=== PATIENT | male | born 1955 | race Caucasian/White ===

== ENCOUNTER 2017-07-21 11:20 | Inpatient (IN) | payer OTHER ==
[2017-07-21 11:50] VITALS: BMI 44.0
--- NOTE | 2017-07-21 13:15 | PDOC ---
*Physical Exam - Vital Signs Last Vital Signs Temp Pulse Resp BP Pulse Ox 98.6 F 76 16 140/80 97 07/21/17 11:46 07/21/17 11:46 07/21/17 11:46 07/21/17 11:46 07/21/17 11:46 ED Treatment Course - LABORATORY CBC & Chemistry Diagram: 07/22/17 07:00 07/22/17 07:00 Medical Decision Making - Medical Decision Making 07/21/17 13:14 Pt seen by the Advanced Practice Provider under my direct supervision Ancillary studies reviewed I agree with plan as outlined by the Advanced Practice Provider JORJE Darby *DC/Admit/Observation/Transfer Diagnosis at time of Disposition: Hematoma of toe of right foot, Cellulitis - Discharge Dispostion Condition at time of disposition: Stable - Referrals - Patient Instructions - Post Discharge Activity
--- NOTE | 2017-07-21 13:15 | PDOC ---
History of Present Illness - General Chief Complaint: Abscess Boil Stated Complaint: PCP SENT Time Seen by Provider: 07/21/17 13:06 History Source: Patient Exam Limitations: No Limitations - History of Present Illness Initial Comments: 07/21/17 13:20 Pt. is a 62 y/o M with PMH of IDDM, CAD with CABG in 2009, HLD, HTN, gout, who presents to the ED c/o a blister to his R 1st toe. He is concerned that it is an abscess. He spoke with his slitter service and setter Dr. Seals who recommended he come for evaluation and admission of his toe. Pt. states he had a large callus on his R first toe when a piece of it broke off. He then states the blister formed. Admits to pain in the toe. Pt is also concerned about his left foot as he recently had a piece of glass removed from the foot. Denies fevers, chills, n /v/d, leg pain, chest pain, sob. Past History - Travel Traveled outside of the country in the last 30 days: No Close contact w/someone who was outside of country & ill: No - Past Medical History Allergies/Adverse Reactions: Allergies Allergy/AdvReac Type Severity Reaction Status Date / Time bacitracin Allergy Verified 07/21/17 11:45 cimetidine [From Tagamet] Allergy Verified 07/21/17 11:45 Home Medications: Ambulatory Orders Allopurinol 600 mg PO DAILY 07/21/17 Clopidogrel Bisulfate [Plavix -] 75 mg PO DAILY 07/21/17 Dapagliflozin Propanediol [Farxiga] 5 mg PO DAILY 07/21/17 Duloxetine HCl [Cymbalta -] 60 mg PO DAILY 07/21/17 Glipizide 5 mg PO DAILY 07/21/17 Insulin Glargine,Hum.rec.anlog [Lantus Solostar] 30 unit SQ HS 07/21/17 Losartan Potassium 100 mg PO DAILY 07/21/17 Metoprolol Tartrate 25 mg PO DAILY 07/21/17 Saxagliptin HCl [Onglyza] 5 mg PO DAILY 07/21/17 Simvastatin 40 mg PO HS 07/21/17 Tamsulosin HCl [Flomax] 0.4 mg PO DAILY 07/21/17 Tolterodine Tartrate [Tolterodine Tartrate ER] 2 mg PO DAILY 07/21/17 COPD: No DVT: No - Immunization History Immunization Up to Date: Yes - Suicide/Smoking/Psychosocial Hx Smoking History: Never smoked Hx Alcohol Use: No Drug/Substance Use Hx: No Substance Use Type: None Review of Systems - Review of Systems Able to Perform ROS?: Yes Comments:: 07/21/17 13:16 CONSTITUTIONAL: Absent: fever, chills, diaphoresis, generalized weakness, malaise, loss of appetite HEENT: Absent: rhinorrhea, nasal congestion, throat pain, throat swelling, difficulty swallowing, mouth swelling, ear pain, eye pain, visual Changes CARDIOVASCULAR: Absent: chest pain, loss of consciousness, palpitations, irregular heart rate, peripheral edema RESPIRATORY: Absent: cough, shortness of breath, dyspnea with exertion, orthopnea, wheezing, stridor, hemoptysis GASTROINTESTINAL: Absent: abdominal pain, abdominal distension, nausea, vomiting, diarrhea, constipation, melena, hematochezia GENITOURINARY: Absent: dysuria, frequency, urgency, hesitancy, hematuria, flank pain, genital pain MUSCULOSKELETAL: Absent: myalgia, arthralgia, joint swelling SKIN: Present: Blister to R 1st toe. Cut to bottom L foot with glass. Absent: rash, itching, pallor HEMATOLOGIC/IMMUNOLOGIC: Absent: easy bleeding, easy bruising, lymphadenopathy, frequent infections ENDOCRINE: Absent: unexplained weight gain, unexplained weight loss, heat intolerance, cold intolerance NEUROLOGIC: Absent: headache, focal weakness or paresthesias, dizziness, unsteady gait, seizure, mental status changes, bladder or bowel incontinence PSYCHIATRIC: Absent: anxiety, depression, suicidal or homicidal ideation, hallucinations. 07/21/17 22:20 Is the patient limited Sinhala proficient: No *Physical Exam - Vital Signs Last Vital Signs Temp Pulse Resp BP Pulse Ox 98.6 F 76 16 140/80 97 07/21/17 11:46 07/21/17 11:46 07/21/17 11:46 07/21/17 11:46 07/21/17 11:46 - Physical Exam Comments: 07/21/17 13:17 GENERAL: Well developed, well nourished, obese. Awake and alert. No acute distress. HEENT: Normocephalic, atraumatic. PERRLA, EOMI. No conjunctival pallor. Sclera are non- icteric. Moist mucous membranes. Oropharynx is clear. NECK: Supple. Full ROM. No JVD. Carotid pulses 2+ and symmetric, without bruits. No thyromegaly. No lymphadenopathy. CARDIOVASCULAR: Regular rate and rhythm. No murmurs, rubs, or gallops. Distal pulses are 2+ and symmetric. PULMONARY: No evidence of respiratory distress. Lungs clear to auscultation bilaterally. No wheezing, rales or rhonchi. ABDOMINAL: Soft. Non-tender. Non-distended. No rebound or guarding. No organomegaly. Normoactive bowel sounds. MUSCULOSKELETAL Normal range of motion at all joints. No bony deformities or tenderness. No CVA tenderness. EXTREMITIES: No cyanosis. No clubbing. No edema. No calf tenderness. SKIN: R 1st toe with 2cm hematoma to the medial aspect near the nailbed. There is surrounding cellulitis to the toe. L foot with small cut to the dorsal surface. Warm and dry. Normal capillary refill. Chronic venous stasis changes to the b/l lower legs. No jaundice. NEUROLOGICAL: Alert, awake, appropriate. Cranial nerves 2-12 intact. No deficits to light touch and temperature in face, upper extremities and lower extremities. No motor deficits in the in face, upper extremities and lower extremities. Normoreflexic in the upper and lower extremities. Normal speech. Toes are down- going bilaterally. Gait is normal without ataxia. PSYCHIATRIC: Cooperative. Good eye contact. Appropriate mood and affect. ED Treatment Course - LABORATORY CBC & Chemistry Diagram: 07/21/17 13:35 07/21/17 13:35 Medical Decision Making - Medical Decision Making 07/21/17 13:28 Pt. is a 62 y/o M with PMH of IDDM, CAD with CABG in 2009, HLD, HTN, gout, who presents to the ED with a hematoma with surrounding cellulits to his R 1st toe. Given hx of diabetes and poor wound healing, concerned for infection. Will also obtain x-rays of both L and R foot given hx of glass in the left foot. Will cover with abx after blood cultures are drawn. Will contact podiatry (Dr. Seals) for evaluation. 1. CBC, CMP, PT/INR, Blood cultures 2. Clinda, Zosyn 3. X-ray L and R foot 4. Podiatry consult 07/21/17 14:32 Dr. Seals in the ED and evaluates the patient. Would like pt admitted for debridment tomorrow. Will admit the pt for further follow up/IV abx pending lab work. 07/21/17 15:21 No leukocytosis, x-rays with no evidence of osteomylitis, or foreign body. Will admit to [facility] at this time 07/21/17 16:31 Spoke with Radha Joy NP who accepts the pt. for admission to Med/surg *DC/Admit/Observation/Transfer Diagnosis at time of Disposition: Hematoma of toe of right foot Qualifiers: Encounter type: initial encounter Qualified Code(s): S90.121A - Contusion of right lesser toe(s) without damage to nail, initial encounter Cellulitis Qualifiers: Site of cellulitis: extremity Site of cellulitis of extremity: toe Laterality: right Qualified Code(s): L03.031 - Cellulitis of right toe - Discharge Dispostion Condition at time of disposition: Stable Admit: Yes - Referrals - Patient Instructions - Post Discharge Activity
[2017-07-21 14:01] LABS: EOS % 1.4 % (0-4.5); HEMATOCRIT 43.7 % (35.4-49); HEMOGLOBIN 14.6 GM/dL (11.7-16.9); LYMPH % 18.8 % (8-40); MCH 29.4 pg (25.7-33.7); MCHC 33.5 g/dl (32.0-35.9); MEAN CELL VOLUME 87.8 fl (80-96); MEAN PLT VOLUME 8.7 fl (7.5-11.1); MONO % 9.5 % (3.8-10.2); NEUT % 69.3 % (42.8-82.8); PLATELET COUNT 195 K/MM3 (134-434); RBC 4.98 M/mm3 (4.00-5.60); RDW 14.3 % (11.9-15.9); WHITE BLOOD COUNT 8.5 K/mm3 (4.0-10.0)
[2017-07-21 14:04] LABS: ALBUMIN 3.2 g/dl (3.4-5.0); ANION GAP 10 (8-16); BILIRUBIN,TOTAL 0.4 mg/dL (0.2-1.0); BLOOD UREA NITROGEN 24 mg/dL (7-18); CALCIUM 9.1 mg/dL (8.5-10.1); CHLORIDE 100 mmol/L (98-107); CO2 28 mmol/L (21-32); CREATININE 0.9 mg/dL (0.7-1.3); GLUCOSE,RANDOM 227 mg/dL (74-106); POTASSIUM 4.4 mmol/L (3.5-5.1); SGOT/AST 16 U/L (15-37); SGPT/ALT 23 U/L (12-78); SODIUM 138 mmol/L (136-145); TOT PROT 6.6 g/dl (6.4-8.2)
[2017-07-21 14:05] LABS: ALK PHOS 99 U/L (45-117)
[2017-07-21 14:28] LABS: INR 1.03 (0.82-1.09); PROTHROMBIN TIME (PATIENT) 11.6 SEC (9.98-11.88)
[2017-07-21] MEDS ORDERED: PIPERACILLIN/TAZOB 3.375 GM/50 ML PRE-DOCKED IVPB ONE (15:46)
[2017-07-21] MEDS ORDERED: CLINDAMYCIN 900 MG PREMIX IVPB 900 MG/50 ML BAG IVPB ONE ×2 (15:47→16:34)
[2017-07-21] MEDS ORDERED: PIPERACILLIN/TAZOB 3.375 GM 3.375 GM/50 ML BAG IVPB ONE ×2 (16:34→20:18)
--- NOTE | 2017-07-21 18:57 | HP ---
CHIEF COMPLAINT: R toe swelling/pain PCP: HISTORY OF PRESENT ILLNESS: This is a 62 year old male with HTN, HLD, NIDDM, and BPH. Presented to the ED with increased RIGHT great toe swelling, erythema and hematoma. Pt states last week he had a callus on the RIGHT toe, and the callus fell off. Overnight, he noted increased pain in the RIGHT toe and the next morning found a hematoma. He also noted redness and a piece of glass in his LEFT foot which his doctor removed. Denies fever, chills, sob, chest pain, nausea, vomiting, changes in bowel or urinary habits. ER course was notable for: (1) zosyn, clinda given (2) blood cx drawn Recent Travel: No PAST MEDICAL HISTORY: Hypertension Hyperlipidemia NIDDM BPH PAST SURGICAL HISTORY: Social History: Smoking: Alcohol: Drugs: Family History: Allergies bacitracin Allergy (Verified 07/21/17 11:45) cimetidine [From Tagamet] Allergy (Verified 07/21/17 11:45) HOME MEDICATIONS: REVIEW OF SYSTEMS CONSTITUTIONAL: Absent: fever, chills, diaphoresis, generalized weakness, malaise, loss of appetite, weight change HEENT: Absent: rhinorrhea, nasal congestion, throat pain, throat swelling, difficulty swallowing, mouth swelling, ear pain, eye pain, visual changes CARDIOVASCULAR: Absent: chest pain, syncope, palpitations, irregular heart rate, lightheadedness , peripheral edema RESPIRATORY: Absent: cough, shortness of breath, dyspnea with exertion, orthopnea, wheezing, stridor, hemoptysis GASTROINTESTINAL: Absent: abdominal pain, abdominal distension, nausea, vomiting, diarrhea, constipation, melena, hematochezia GENITOURINARY: Absent: dysuria, frequency, urgency, hesitancy, hematuria, flank pain, genital pain MUSCULOSKELETAL: Absent: myalgia, arthralgia, joint swelling, back pain, neck pain SKIN: R toe hematoma, erythema redness swelling Absent: rash, itching, pallor HEMATOLOGIC/IMMUNOLOGIC: Absent: easy bleeding, easy bruising, lymphadenopathy, frequent infections ENDOCRINE: Absent: unexplained weight gain, unexplained weight loss, heat intolerance, cold intolerance NEUROLOGIC: Absent: headache, focal weakness or paresthesias, dizziness, unsteady gait, seizure, mental status changes, bladder or bowel incontinence PSYCHIATRIC: Absent: anxiety, depression, suicidal or homicidal ideation, hallucinations. PHYSICAL EXAMINATION Vital Signs - 24 hr 07/21/17 07/21/17 11:46 17:24 Temperature 98.6 F Pulse Rate 76 Pulse Rate [ 79 Apical] Respiratory 16 18 Rate Blood Pressure 140/80 Blood Pressure 100/69 [Right Arm] O2 Sat by Pulse 97 98 Oximetry (%) PE Neuro: alert, awake, cn 2-12intact Pulm: CTAB CV: s1 s2 rrr no mrg Abd: s nt nd + bs ExT: R great toe swelling/foot, R toe with hematoma, redness, b/l LE chronic erythema Laboratory Results - last 24 hr 07/21/17 07/21/17 07/21/17 13:35 13:35 13:35 WBC 8.5 RBC 4.98 Hgb 14.6 Hct 43.7 MCV 87.8 MCH 29.4 MCHC 33.5 RDW 14.3 Plt Count 195 MPV 8.7 Neutrophils % 69.3 Lymphocytes % 18.8 Monocytes % 9.5 Eosinophils % 1.4 Basophils % 1.0 PT with INR 11.60 INR 1.03 Sodium 138 Potassium 4.4 Chloride 100 Carbon Dioxide 28 Anion Gap 10 BUN 24 H Creatinine 0.9 Creat Clearance w eGFR > 60 Random Glucose 227 H Calcium 9.1 Total Bilirubin 0.4 AST 16 ALT 23 Alkaline Phosphatase 99 Total Protein 6.6 Albumin 3.2 L ASSESSMENT/PLAN: 62 year-old male with a PMH significant for HTN, HLD, NIDDM, peripheral vascular disease, and BPH, admitted for cellulitis and hematoma of the right great toe. Cellulitis and hematoma of right great toe --xray unremarkable for fracture or signs of osteo --start unasyn --podiatry will see tomorrow for debridement Left foot foreign object --Xray negative for foreign object but podiatry read indicates fragment --podiatry will assess in OR tomorrow Hypertension --continue losartan, metoprolol Hyperlipidemia --continue statin NIDDM --Novolog sliding scale coverage --Levemir 30U qhs BPH --continue tamsulosin, tolterodine FEN Fluids: NS x 1L, then 75mL/hr Electrolytes: replete as indicated Nutrition: low sodium diabetic DVT prophylaxis: subq heparin, oob, ambulation Physical therapy Dispo: continues to require inpatient care. Full code. Visit type - Emergency Visit Emergency Visit: Yes ED Registration Date: 07/21/17 Care time: The patient presented to the Emergency Department on the above date and was hospitalized for further evaluation of their emergent condition. - New Patient This patient is new to me today: Yes Date on this admission: 07/21/17 - Critical Care Critical Care patient: No
[2017-07-21] MEDS ORDERED: SODIUM CHLORIDE 1,000 ML IV STA (20:14)
[2017-07-21] MEDS ORDERED: PIPERACIL/TAZOB 3.375 GM 3.375 GM/50 ML PREMIX IVPB SCH (20:15)
[2017-07-21] MEDS ORDERED: PIPERACILLIN/TAZOB 3.375 GM 3.375 GM in DEXTROSE 5%-WATER - 100 ML IVPB SCH (20:15)
[2017-07-21] MEDS ORDERED: TAMSULOSIN HCL 0.4 MG CAP.ER.24H (FP) ONE (20:18)
[2017-07-21] MEDS ORDERED: ACETAMINOPHEN 325 MG TABLET (FP) PO PRN (20:20)
[2017-07-21] MEDS: TAMSULOSIN HCL 0.4 MG CAP.ER.24H (FP) PO SCH (20:28)
[2017-07-21] MEDS: SODIUM CHLORIDE 1,000 ML IV SCH (20:30)
--- NOTE | 2017-07-21 20:50 | CONSULT ---
Consult - text type - Consultation Consultation Note: Patient was seen in a local Snowblower Mechanic office and referred to ER. Patient was seen in ER. Blister with cellulitis right foot and foreign body removal attempt left foot. Appears to be cellulitis right big toe proximal to blood blister. Patient is diabetic. vsgi, ns decreased, xrays reviewed, appears to have foreign body left foot, no om on left but have not seen official reading, +hematoma right foot, +cellulitis proximally, Cellulitis Foreign Body NPO tonight. Will add on to OR schedule tomorrow for I&D right and removal foreign body left. Vascular Clearance Dr. Medrano. Medical Clearance. Will follow.
[2017-07-21] MEDS ORDERED: ATORVASTATIN CA 40 MG TABLET (FP) ONE (23:27)
[2017-07-21] MEDS ORDERED: INSULIN DETEMIR 100 UNITS/ML MDV SQ ONE (23:29)
[2017-07-21] MEDS ORDERED: INSULIN (NOVOLOG) ASPART 100 UNITS/ML 10ML VIAL ONE (23:31)
[2017-07-21] MEDS: INSULIN DETEMIR 100 UNITS/ML MDV SQ SCH (23:38)
[2017-07-21] MEDS: ATORVASTATIN CA 20 MG TABLET (FP) PO SCH (23:39)
[2017-07-21] MEDS: INSULIN SLIDING SCALE (NOVOLOG) 1 VIAL SQ SCH (23:39)
[2017-07-22] MEDS: AMPICILLIN NA/SULBACTAM NA 3 GM in SODIUM CHLORIDE 100 ML IVPB SCH ×2 (04:39→10:59)
[2017-07-22] MEDS: HEPARIN NA (PORCINE) 5,000 UNITS/ML 1ML VIAL SQ SCH ×3 (06:14→22:32)
[2017-07-22] MEDS ORDERED: HEPARIN NA (PORCINE) 5,000 UNITS/ML 1ML VIAL ONE (06:43)
[2017-07-22] MEDS ORDERED: INSULIN (NOVOLOG) ASPART 100 UNITS/ML 10ML VIAL ONE (06:49)
[2017-07-22] MEDS: INSULIN SLIDING SCALE (NOVOLOG) 1 VIAL SQ SCH ×4 (06:58→22:32)
[2017-07-22 08:38] LABS: BASO % 0.9 % (0-2.0); EOS % 2.5 % (0-4.5); HEMATOCRIT 42.2 % (35.4-49); HEMOGLOBIN 13.7 GM/dL (11.7-16.9); LYMPH % 21.6 % (8-40); MCH 28.9 pg (25.7-33.7); MCHC 32.5 g/dl (32.0-35.9); MEAN CELL VOLUME 88.8 fl (80-96); MEAN PLT VOLUME 8.6 fl (7.5-11.1); MONO % 10.5 % (3.8-10.2); NEUT % 64.5 % (42.8-82.8); PLATELET COUNT 158 K/MM3 (134-434); RBC 4.75 M/mm3 (4.00-5.60); RDW 14.1 % (11.9-15.9); WHITE BLOOD COUNT 7.1 K/mm3 (4.0-10.0)
[2017-07-22 09:10] LABS: ALK PHOS 88 U/L (45-117); ANION GAP 9 (8-16); BILIRUBIN,TOTAL 0.6 mg/dL (0.2-1.0); BLOOD UREA NITROGEN 23 mg/dL (7-18); CHLORIDE 103 mmol/L (98-107); CO2 26 mmol/L (21-32); CREATININE 0.8 mg/dL (0.7-1.3); GLUCOSE,RANDOM 193 mg/dL (74-106); PHOSPHOROUS 3.6 mg/dL (2.5-4.9); POTASSIUM 4.3 mmol/L (3.5-5.1); SGOT/AST 16 U/L (15-37); SGPT/ALT 20 U/L (12-78); SODIUM 138 mmol/L (136-145); TOT PROT 5.9 g/dl (6.4-8.2)
[2017-07-22] MEDS ORDERED: DULoxetine HCL 60 MG CAPSULE.DR PO SCH (10:00)
[2017-07-22] MEDS: LOSARTAN POTASSIUM 100 MG TABLET PO SCH ×2 (10:59→11:30)
[2017-07-22] MEDS: TAMSULOSIN HCL 0.4 MG CAP.ER.24H (FP) PO SCH (10:59)
[2017-07-22] MEDS: CLOPIDOGREL BISULFATE 75 MG TABLET (FP) PO SCH ×2 (10:59→13:52)
[2017-07-22] MEDS: TOLTERODINE TARTRATE LA 2 MG CAP.SR.24H PO SCH ×2 (10:59→13:52)
[2017-07-22] MEDS: METOPROLOL TARTRATE 25 MG TABLET (FP) PO SCH ×2 (10:59→11:30)
[2017-07-22] MEDS: ALLOPURINOL 300 MG TABLET (FP) PO SCH ×2 (11:00→13:52)
--- NOTE | 2017-07-22 11:14 | PN ---
Progress Note (short form) - Note Progress Note: ID Consult dictated Cellulitis R foot Hematoma R great toe IDDM FB L foot Await c/s For I&D Empiric vancomycin/ zosyn
--- NOTE | 2017-07-22 12:26 | CONS ---
DATE OF CONSULTATION: DATE OF DICTATION: 07/22/2017 HISTORY OF PRESENT ILLNESS: The patient is a 62-year-old diabetic male who is evaluated for cellulitis of the right foot. The patient reports having a callus on his right great toe 1 week ago. The callus subsequently fell off. He developed pain and swelling of his right great toe and noted development of a hematoma. He presented to his loom inspector's office where he was advised hospital admission for debridement. He was also found to have a foreign body in the plantar aspect of the left foot. He denies any traumatic injury. No associated fever or chills. Patient states he has good sensation in his feet despite being an insulin-dependent diabetic. He denies prior history of serious soft tissue infection requiring hospitalization. PAST MEDICAL HISTORY: Positive for insulin-dependent diabetes mellitus, coronary artery disease, hypertension, gouty arthritis, hyperlipidemia, BPH. PAST SURGICAL HISTORY: Status post coronary artery bypass graft, 2009; history of basal cell carcinoma of the right upper extremity. ALLERGIES: BACITRACIN and TAGAMET. The patient develops hives with BACITRACIN. MEDICATIONS: Include allopurinol, Plavix, Farxiga, Cymbalta, glipizide, insulin, losartan, metoprolol, simvastatin, Flomax. SOCIAL HISTORY: Lives at home. Nonsmoker. Nondrinker. SYSTEMS REVIEW:Neurologic: No loss of consciousness, seizure activity, focal weakness. Cardiac: Negative chest pain or palpitations. Respiratory: Negative cough or sputum production. Gastrointestinal: Negative vomiting or diarrhea. Genitourinary: Negative for urinary tract infection. LABORATORY DATA: White blood cell count 7.1, hematocrit 42.2, platelet count 158. BUN 23, creatinine 0.8. Blood cultures pending. PHYSICAL EXAMINATION: General: He is awake and alert, in no acute distress, not acutely toxic appearing. He is obese. Vital Signs: Temperature 98.6, blood pressure 150/82, pulse 75, regular, respirations 15 per minute. HEENT: Sclerae are anicteric. Cardiac: Heart sounds S1, S2. Lungs: Clear. Abdomen: Obese, soft, nontender.Extremities: Positive for lower extremity edema. There is chronic stasis dermatitis present, left lower extremity. On examination of the right foot, there is swelling of the right great toe with a 2 x 4-cm hematoma involving the dorsal aspect of the toe extending to the medial and plantar surfaces. There is surrounding erythema. It is tender to touch. No surrounding crepitus. The hematoma itself is fluctuant. No lymphangitic streaking. On examination of the left foot, there is induration and tenderness present on the mid plantar surface. No wound is noted or erythema/ drainage. IMPRESSION: 1. Cellulitis of the right foot. 2. Hematoma, right great toe. 3. Insulin-dependent diabetes mellitus. 4. Foreign body in the soft tissues of the left foot, plantar surface. RECOMMENDATIONS: Await culture results. Patient is for incision and drainage today. Empiric antibiotic coverage in this insulin-dependent diabetic with vancomycin and Zosyn. Will follow. Thank you for the kind referral. MONSE WILSON M.D. [id number]
[2017-07-22] MEDS: VANCOMYCIN 1,000 MG in DEXTROSE 5%-WATER - 250 ML IVPB SCH ×2 (12:30→23:30)
--- NOTE | 2017-07-22 14:19 | PN ---
Progress Note (short form) - Note Progress Note: Patient was seen in [facility]. Patient had no new complaints and was asymptomatic at this time on plantar left foot. Right foot hematoma still intact. nvsgi, +hematoma right hallux, +localized cellulitis, -drainage, -mal odor, - tender Hematoma right hallux Foreign body left plantar foot? Xrays reviewed. I&D bedside hematoma right big toe. Culture of fluid sent to pathology. Betadine dressing applied. Patient to be admitted for IVABX and local wound care. Post op shoe to right side. Cancelled from OR schedule and done bedside. Will follow.
--- NOTE | 2017-07-22 15:12 | PN ---
Physical Exam: SUBJECTIVE: Patient seen and examined OBJECTIVE: Vital Signs Period Temp Pulse Resp BP Sys/Martinez Pulse Ox Last 24 Hr 97.9 F-98.1 F 63-81 15-18 100-150/65-88 93-98 Neuro: AA&Ox3. Pulm: Lungs CTAB CV: RRR. S1 S2. No m/r/g. Abd: SNTND. + bs ExT: R toe surgical site with minimal drainage, redness, b/l LE chronic venous stasis changes Laboratory Results - last 24 hr 07/22/17 07/22/17 07/22/17 06:42 07:00 07:00 WBC 7.1 RBC 4.75 Hgb 13.7 Hct 42.2 MCV 88.8 MCH 28.9 MCHC 32.5 RDW 14.1 Plt Count 158 MPV 8.6 Neutrophils % 64.5 Lymphocytes % 21.6 Monocytes % 10.5 H Eosinophils % 2.5 Basophils % 0.9 Sodium 138 Potassium 4.3 Chloride 103 Carbon Dioxide 26 Anion Gap 9 BUN 23 H Creatinine 0.8 Creat Clearance w eGFR > 60 POC Glucometer [phone] Random Glucose 193 H Calcium 8.0 L Phosphorus 3.6 Magnesium 2.0 Total Bilirubin 0.6 D AST 16 ALT 20 Alkaline Phosphatase 88 Total Protein 5.9 L Albumin 3.0 L Active Medications Generic Name Dose Route Start Last Admin Trade Name Freq PRN Reason Stop Dose Admin Acetaminophen 650 mg 07/21/17 20:20 Tylenol - PO Q6H PRN MODERATE PAIN Allopurinol 600 mg 07/22/17 10:00 07/22/17 13:52 Zyloprim - PO 600 mg DAILY SYLVIA Administration Atorvastatin Calcium 20 mg 07/21/17 22:00 07/21/17 23:39 Lipitor - PO 20 mg HS SYLVIA Administration Clopidogrel Bisulfate 75 mg 07/22/17 10:00 07/22/17 13:52 Plavix - PO 75 mg DAILY SYLVIA Administration Duloxetine HCl 60 mg 07/22/17 10:00 07/22/17 10:59 Cymbalta - PO Not Given DAILY SYLVIA Heparin Sodium (Porcine) 5,000 unit 07/22/17 06:00 07/22/17 13:52 Heparin - SQ 5,000 unit TID SYLVIA Administration Sodium Chloride 1,000 mls @ 75 mls/hr 07/21/17 20:30 07/21/17 20:30 Normal Saline - IV 75 mls/hr ASDIR SYLVIA Administration Vancomycin HCl 1,000 mg/ 250 mls @ 200 mls/hr 07/22/17 12:00 07/22/17 12:30 Dextrose IVPB 0 mls BID@0000,1200 SYLVIA Administration Piperacillin Sod/Tazobactam 100 mls @ 200 mls/hr 07/22/17 18:00 Sod 4.5 gm/ Dextrose IVPB Q8H-IV SYLVIA Protocol Insulin Aspart 1 vial 07/21/17 22:00 07/22/17 12:30 Novolog Vial Sliding Scale - SQ 1 vial ACHS SYLVIA Administration Protocol Insulin Detemir 30 units 07/21/17 22:00 07/21/17 23:38 Levemir Vial SQ 30 units HS SYLVIA Administration Losartan Potassium 100 mg 07/22/17 10:00 07/22/17 11:30 Losartan Potassium PO 100 mg DAILY SYLVIA Administration Metoprolol Tartrate 25 mg 07/22/17 10:00 07/22/17 11:30 Lopressor - PO 25 mg DAILY SYLVIA Administration Tamsulosin HCl 0.4 mg 07/21/17 20:15 07/22/17 10:59 Flomax - PO Not Given DAILY@0830 [facility] Tolterodine Tartrate 2 mg 07/22/17 10:00 07/22/17 13:52 Detrol La - PO 2 mg DAILY SYLVIA Administration ASSESSMENT/PLAN: A: 62 year-old male with a PMH significant for HTN, HLD, NIDDM, peripheral vascular disease, and BPH, admitted for cellulitis and hematoma of the right great toe. P: Cellulitis and hematoma of right great toe - xray unremarkable for fracture or osteo - Vanco 1 g q12h - Zosyn 4.5 q8h - OR cancelled due to bedside I&D - ID following Left foot foreign object - Xray negative for foreign object Hypertension - losartan - metoprolol Hyperlipidemia - Lipitor NIDDM - FS qACHS - Novolog sliding scale coverage - Levemir 30U qhs BPH - tamsulosin - tolterodine F/E/N - NS@75mL/hr - replete prn - low Na diabetic PPX - sqh - oob - PT Dispo: continues to require inpatient care. Visit type - Emergency Visit Emergency Visit: Yes ED Registration Date: 07/21/17 Care time: The patient presented to the Emergency Department on the above date and was hospitalized for further evaluation of their emergent condition. - New Patient This patient is new to me today: Yes Date on this admission: 07/22/17 - Critical Care Critical Care patient: No
--- NOTE | 2017-07-22 16:10 | PN ---
Progress Note (short form) - Note Progress Note: VA[facility] Surgery Pt seen and examined in ER this am. Pt with right great toe blister, and foreign body in left foot. Podiatry to take pt for surgery Pt has palpable DP pulses. Cleared from a vascular standpoint for podiatry surgery Da Medrano dO
[2017-07-22] MEDS: PIPERACILLIN/TAZOB 4.5 GM 4.5 GM in DEXTROSE 5%-WATER - 100 ML IVPB SCH (17:23)
[2017-07-22] MEDS ORDERED: PT OWN MED DRAWER 7, Y5N ONE (18:20)
[2017-07-22] MEDS: SODIUM CHLORIDE 1,000 ML IV SCH (22:30)
[2017-07-22] MEDS: ATORVASTATIN CA 20 MG TABLET (FP) PO SCH (22:32)
[2017-07-22] MEDS: INSULIN DETEMIR 100 UNITS/ML MDV SQ SCH (22:32)
[2017-07-23] MEDS: SODIUM CHLORIDE 1,000 ML IV SCH (02:45)
[2017-07-23] MEDS: PIPERACILLIN/TAZOB 4.5 GM 4.5 GM in DEXTROSE 5%-WATER - 100 ML IVPB SCH ×2 (02:46→11:01)
[2017-07-23] MEDS: INSULIN SLIDING SCALE (NOVOLOG) 1 VIAL SQ SCH ×4 (06:56→21:42)
[2017-07-23] MEDS: HEPARIN NA (PORCINE) 5,000 UNITS/ML 1ML VIAL SQ SCH ×3 (06:57→21:42)
[2017-07-23 07:32] LABS: EOS % 3.3 % (0-4.5); HEMATOCRIT 42.4 % (35.4-49); HEMOGLOBIN 13.7 GM/dL (11.7-16.9); LYMPH % 25.6 % (8-40); MCH 28.9 pg (25.7-33.7); MCHC 32.4 g/dl (32.0-35.9); MEAN CELL VOLUME 89.1 fl (80-96); MEAN PLT VOLUME 8.5 fl (7.5-11.1); MONO % 8.9 % (3.8-10.2); NEUT % 61.2 % (42.8-82.8); PLATELET COUNT 142 K/MM3 (134-434); RBC 4.76 M/mm3 (4.00-5.60); RDW 14.3 % (11.9-15.9); WHITE BLOOD COUNT 6.4 K/mm3 (4.0-10.0)
[2017-07-23 07:52] LABS: ANION GAP 8 (8-16); BLOOD UREA NITROGEN 14 mg/dL (7-18); CALCIUM 7.5 mg/dL (8.5-10.1); CHLORIDE 106 mmol/L (98-107); CO2 26 mmol/L (21-32); CREATININE 0.7 mg/dL (0.7-1.3); GLUCOSE,RANDOM 139 mg/dL (74-106); POTASSIUM 4.1 mmol/L (3.5-5.1); SODIUM 140 mmol/L (136-145)
--- NOTE | 2017-07-23 08:14 | CONSULT ---
Consult - text type - Consultation Consultation Note: Patient seen in bed. Alert and oriented. VSS. Left foot and right foot no pain. greatly improved erythema / cellulitis right foot. wbc=6.4, +granulating wound right big toe. left foot stable, Resolving cellulitis DC Betadine dressing changes daily. Change to silvadene dressing change right great toe daily. Nithin follow till dc. Anticipate DC by Tuesday if continues to progress positively.
[2017-07-23] MEDS: ALLOPURINOL 300 MG TABLET (FP) PO SCH (09:23)
[2017-07-23] MEDS: TAMSULOSIN HCL 0.4 MG CAP.ER.24H (FP) PO SCH (09:23)
[2017-07-23] MEDS: DULoxetine HCL 30 MG CAPSULE.DR (FP) PO SCH (09:23)
[2017-07-23] MEDS: LOSARTAN POTASSIUM 50 MG TABLET (FP) PO SCH (09:24)
[2017-07-23] MEDS: CLOPIDOGREL BISULFATE 75 MG TABLET (FP) PO SCH (09:24)
[2017-07-23] MEDS: TOLTERODINE TARTRATE LA 2 MG CAP.SR.24H PO SCH (09:24)
[2017-07-23] MEDS: METOPROLOL TARTRATE 25 MG TABLET (FP) PO SCH (09:24)
--- NOTE | 2017-07-23 11:03 | PN ---
Progress Note, Physician Chief Complaint: S/P I&D R great toe hematoma No c/o toe pain No fever/ chills + loose BM x1 this morning Afebrile WBC WNL BC (-) Wound c/s pending - Current Medication List Current Medications: Active Medications Acetaminophen (Tylenol -) 650 mg PO Q6H PRN PRN Reason: MODERATE PAIN Allopurinol (Zyloprim -) 600 mg PO DAILY COUNTS INCLUDE 234 BEDS AT THE [facility] Last Admin: 07/23/17 09:23 Dose: 600 mg Atorvastatin Calcium (Lipitor -) 20 mg PO HS COUNTS INCLUDE 234 BEDS AT THE [facility] Last Admin: 07/22/17 22:32 Dose: 20 mg Clopidogrel Bisulfate (Plavix -) 75 mg PO DAILY COUNTS INCLUDE 234 BEDS AT THE [facility] Last Admin: 07/23/17 09:24 Dose: 75 mg Duloxetine HCl (Cymbalta -) 60 mg PO DAILY COUNTS INCLUDE 234 BEDS AT THE [facility] Last Admin: 07/23/17 09:23 Dose: 60 mg Heparin Sodium (Porcine) (Heparin -) 5,000 unit SQ TID COUNTS INCLUDE 234 BEDS AT THE [facility] Last Admin: 07/23/17 06:57 Dose: 5,000 unit Sodium Chloride (Normal Saline -) 1,000 mls @ 75 mls/hr IV ASDIR COUNTS INCLUDE 234 BEDS AT THE [facility] Last Admin: 07/23/17 02:45 Dose: 75 mls/hr Vancomycin HCl 1,000 mg/ (Dextrose) 250 mls @ 200 mls/hr IVPB BID@0000,1200 COUNTS INCLUDE 234 BEDS AT THE [facility] Last Admin: 07/22/17 23:30 Dose: 200 mls/hr Piperacillin Sod/Tazobactam (Sod 4.5 gm/ Dextrose) 100 mls @ 200 mls/hr IVPB Q8H-IV COUNTS INCLUDE 234 BEDS AT THE [facility] PRN Reason: Protocol Last Admin: 07/23/17 02:46 Dose: 200 mls/hr Insulin Aspart (Novolog Vial Sliding Scale -) 1 vial SQ ACHS COUNTS INCLUDE 234 BEDS AT THE [facility] PRN Reason: Protocol Last Admin: 07/23/17 06:56 Dose: Not Given Insulin Detemir (Levemir Vial) 30 units SQ HS COUNTS INCLUDE 234 BEDS AT THE [facility] Last Admin: 07/22/17 22:32 Dose: 30 units Losartan Potassium (Cozaar -) 100 mg PO DAILY COUNTS INCLUDE 234 BEDS AT THE [facility] Last Admin: 07/23/17 09:24 Dose: 100 mg Metoprolol Tartrate (Lopressor -) 25 mg PO DAILY COUNTS INCLUDE 234 BEDS AT THE [facility] Last Admin: 07/23/17 09:24 Dose: 25 mg Tamsulosin HCl (Flomax -) 0.4 mg PO DAILY@0830 COUNTS INCLUDE 234 BEDS AT THE [facility] Last Admin: 07/23/17 09:23 Dose: 0.4 mg Tolterodine Tartrate (Detrol La -) 2 mg PO DAILY COUNTS INCLUDE 234 BEDS AT THE [facility] Last Admin: 07/23/17 09:24 Dose: 2 mg - Objective Vital Signs: Vital Signs Temperature 98 F 07/23/17 07:00 Pulse Rate 71 07/23/17 07:00 Respiratory Rate 18 07/23/17 07:00 Blood Pressure 135/74 07/23/17 07:00 O2 Sat by Pulse Oximetry (%) 96 07/22/17 09:00 Constitutional: Yes: No Distress, Obese Eyes: Yes: Conjunctiva Clear Cardiovascular: Yes: Regular Rate and Rhythm, S1, S2 Respiratory: Yes: CTA Bilaterally Gastrointestinal: Yes: Normal Bowel Sounds, Soft. No: Tenderness Extremities: Yes: Other (R great toe with denuded skin. Decreased swelling and erythema) Labs: CBC, BMP 07/23/17 07:15 07/23/17 07:15 INR, PTT INR 1.03 (0.82-1.09) 07/21/17 13:35 Assessment/Plan Cellulitis R great toe S/P I&D R great toe hematoma Diabetes mellitus Await c/s Continue vancomycin. D/C zosyn Probiotic
[2017-07-23] MEDS: VANCOMYCIN 1,000 MG in DEXTROSE 5%-WATER - 250 ML IVPB SCH ×2 (11:55→23:50)
[2017-07-23] MEDS ORDERED: INSULIN (NOVOLOG) ASPART 100 UNITS/ML 10ML VIAL ONE (12:07)
[2017-07-23 13:33] LABS: ANION GAP 9 (8-16); BLOOD UREA NITROGEN 13 mg/dL (7-18); CALCIUM 8.2 mg/dL (8.5-10.1); CHLORIDE 103 mmol/L (98-107); CO2 24 mmol/L (21-32); GLUCOSE,RANDOM 274 mg/dL (74-106); MAGNESIUM 1.8 mg/dL (1.8-2.4); POTASSIUM 4.6 mmol/L (3.5-5.1); SODIUM 136 mmol/L (136-145)
[2017-07-23 13:38] LABS: ALK PHOS 91 U/L (45-117); BILIRUBIN,TOTAL 0.5 mg/dL (0.2-1.0); SGOT/AST 18 U/L (15-37); SGPT/ALT 22 U/L (12-78); TOT PROT 6.3 g/dl (6.4-8.2)
[2017-07-23] MEDS: LACTOBACILLUS ACIDOPHILUS 1 EACH TAB (FP) PO SCH (14:23)
[2017-07-23] MEDS: SILVER SULFADIAZINE 1% TOP CREAM 50 GM JAR TP SCH (15:00)
--- NOTE | 2017-07-23 17:15 | PN ---
Physical Exam: SUBJECTIVE: Patient seen and examined at the bedside. Sitting up in the chair, in no acute distress. OBJECTIVE: Vital Signs Period Temp Pulse Resp BP Sys/Martinez Pulse Ox Last 24 Hr 98 F-98.7 F 60-80 18-18 130-143/59-77 GENERAL: The patient is awake, alert, and fully oriented, in no acute distress. HEAD: Normal with no signs of trauma. EYES: PERRL, extraocular movements intact, sclera anicteric, conjunctiva clear. No ptosis. ENT: Ears normal, nares patent, oropharynx clear without exudates, moist mucous membranes. NECK: Trachea midline, full range of motion, supple. LUNGS: Diminished breath sounds bilaterally, tolerating room air ABDOMEN: Soft, nontender, nondistended, normoactive bowel sounds, no guarding, no rebound, no hepatosplenomegaly, no masses. EXTREMITIES:R toe surgical site with minimal drainage, redness, b/l LE chronic venous stasis changes SKIN: bilateral lower ext edema, d/c ivf 07/22/17 07/22/17 07/23/17 17:23 21:17 05:58 WBC RBC Hgb Hct MCV MCH MCHC RDW Plt Count MPV Neutrophils % Lymphocytes % Monocytes % Eosinophils % Basophils % Sodium Potassium Chloride Carbon Dioxide Anion Gap BUN Creatinine Creat Clearance w eGFR POC Glucometer 226 224 135 Random Glucose Calcium Magnesium Total Bilirubin AST ALT Alkaline Phosphatase Total Protein Albumin 07/23/17 07/23/17 07/23/17 07:15 07:15 11:59 WBC 6.4 RBC 4.76 Hgb 13.7 Hct 42.4 MCV 89.1 MCH 28.9 MCHC 32.4 RDW 14.3 Plt Count 142 MPV 8.5 Neutrophils % 61.2 Lymphocytes % 25.6 Monocytes % 8.9 Eosinophils % 3.3 Basophils % 1.0 Sodium 140 Potassium 4.1 Chloride 106 Carbon Dioxide 26 Anion Gap 8 BUN 14 D Creatinine 0.7 Creat Clearance w eGFR POC Glucometer 214 Random Glucose 139 H D Calcium 7.5 L Magnesium Total Bilirubin AST ALT Alkaline Phosphatase Total Protein Albumin 07/23/17 12:40 WBC RBC Hgb Hct MCV MCH MCHC RDW Plt Count MPV Neutrophils % Lymphocytes % Monocytes % Eosinophils % Basophils % Sodium 136 Potassium 4.6 Chloride 103 Carbon Dioxide 24 Anion Gap 9 BUN 13 Creatinine 1.0 D Creat Clearance w eGFR > 60 POC Glucometer Random Glucose 274 H D Calcium 8.2 L Magnesium 1.8 Total Bilirubin 0.5 AST 18 ALT 22 Alkaline Phosphatase 91 Total Protein 6.3 L Albumin 3.0 L Active Medications Generic Name Dose Route Start Last Admin Trade Name Eliotq PRN Reason Stop Dose Admin Acetaminophen 650 mg 07/21/17 20:20 Tylenol - PO Q6H PRN MODERATE PAIN Allopurinol 600 mg 07/22/17 10:00 07/23/17 09:23 Zyloprim - PO 600 mg DAILY SYLVIA Administration Atorvastatin Calcium 20 mg 07/21/17 22:00 07/22/17 22:32 Lipitor - PO 20 mg HS SYLVIA Administration Clopidogrel Bisulfate 75 mg 07/22/17 10:00 07/23/17 09:24 Plavix - PO 75 mg DAILY SYLVIA Administration Duloxetine HCl 60 mg 07/23/17 10:00 07/23/17 09:23 Cymbalta - PO 60 mg DAILY SYLVIA Administration Heparin Sodium (Porcine) 5,000 unit 07/22/17 06:00 07/23/17 14:23 Heparin - SQ 5,000 unit TID SYLVIA Administration Sodium Chloride 1,000 mls @ 75 mls/hr 07/21/17 20:30 07/23/17 02:45 Normal Saline - IV 75 mls/hr ASDIR SYLVIA Administration Vancomycin HCl 1,000 mg/ 250 mls @ 200 mls/hr 07/22/17 12:00 07/23/17 11:55 Dextrose IVPB 200 mls/hr BID@0000,1200 SY[facility]IA Administration Insulin Aspart 1 vial 07/21/17 22:00 07/23/17 12:37 Novolog Vial Sliding Scale - SQ 4 units ACHS SY[facility]IA Administration Protocol Insulin Detemir 30 units 07/21/17 22:00 07/22/17 22:32 Levemir Vial SQ 30 units HS SY[facility]IA Administration Lactobacillus Acidophilus 1 tab 07/23/17 11:15 07/23/17 14:23 Bacid - PO 1 tab DAILY SY[facility]IA Administration Losartan Potassium 100 mg 07/23/17 10:00 07/23/17 09:24 Cozaar - PO 100 mg DAILY [facility] Administration Metoprolol Tartrate 25 mg 07/22/17 10:00 07/23/17 09:24 Lopressor - PO 25 mg DAILY SY[facility]IA Administration Silver Sulfadiazine 1 applic 07/23/17 14:00 Silvadene - TP DAILY SYLVIA Tamsulosin HCl 0.4 mg 07/21/17 20:15 07/23/17 09:23 Flomax - PO 0.4 mg DAILY@0830 SY[facility]IA Administration Tolterodine Tartrate 2 mg 07/22/17 10:00 07/23/17 09:24 Detrol La - PO 2 mg DAILY SY[facility]IA Administration ASSESSMENT/PLAN: Patient is a 62 year old male with a significant past medical history of hypertension, hyperlipidemia, diabetes mellitus, peripheral vascular disease, and BPH, admitted for cellulitis and hematoma of the right great toe. 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 ID: Cellulitis and hematoma of right great toe Foot xray unremarkable for fracture or osteomylitis On Vancomycin and Zosyn Bedside I&D of right great toe Awaiting wound cultures ID following Xray negative for foreign object Cardiology: Hypertension, controlled On Losartan, Metoprolol Hyperlipidemia, chronic On Lipitor Endocrine: Diabetes, chronic BGM, Novolog, Levemir F.E.N. Fluids: tolerating PO Electrolytes: monitor Nutrition: diabetic diet Prophylaxis: DVT: Heparin TID GI: Bacid Disposition: full code. Visit type - Emergency Visit Emergency Visit: Yes ED Registration Date: 07/21/17 Care time: The patient presented to the Emergency Department on the above date and was hospitalized for further evaluation of their emergent condition. - New Patient This patient is new to me today: Yes Date on this admission: 07/23/17 - Critical Care Critical Care patient: No - Discharge Referral Referred to [facility] Med P.C.: No
[2017-07-23] MEDS: INSULIN DETEMIR 100 UNITS/ML MDV SQ SCH (21:42)
[2017-07-23] MEDS: ATORVASTATIN CA 20 MG TABLET (FP) PO SCH (21:42)
[2017-07-24] MEDS: INSULIN SLIDING SCALE (NOVOLOG) 1 VIAL SQ SCH ×4 (06:03→21:45)
[2017-07-24] MEDS: HEPARIN NA (PORCINE) 5,000 UNITS/ML 1ML VIAL SQ SCH ×3 (06:05→21:44)
[2017-07-24 07:49] LABS: BASO % 0.6 % (0-2.0); EOS % 3.2 % (0-4.5); HEMATOCRIT 43.1 % (35.4-49); HEMOGLOBIN 13.9 GM/dL (11.7-16.9); LYMPH % 25.9 % (8-40); MCH 28.8 pg (25.7-33.7); MCHC 32.2 g/dl (32.0-35.9); MEAN CELL VOLUME 89.3 fl (80-96); MEAN PLT VOLUME 8.3 fl (7.5-11.1); MONO % 9.5 % (3.8-10.2); NEUT % 60.8 % (42.8-82.8); PLATELET COUNT 138 K/MM3 (134-434); RBC 4.83 M/mm3 (4.00-5.60); WHITE BLOOD COUNT 6.9 K/mm3 (4.0-10.0)
[2017-07-24 07:59] LABS: ALBUMIN 2.8 g/dl (3.4-5.0); ANION GAP 7 (8-16); BLOOD UREA NITROGEN 11 mg/dL (7-18); CALCIUM 8.2 mg/dL (8.5-10.1); CHLORIDE 104 mmol/L (98-107); CO2 28 mmol/L (21-32); CREATININE 0.6 mg/dL (0.7-1.3); GLUCOSE,RANDOM 147 mg/dL (74-106); SGOT/AST 14 U/L (15-37); SGPT/ALT 20 U/L (12-78); SODIUM 139 mmol/L (136-145)
[2017-07-24 08:01] LABS: ALK PHOS 91 U/L (45-117); BILIRUBIN,TOTAL 0.4 mg/dL (0.2-1.0)
[2017-07-24] MEDS ORDERED: PT OWN MED DRAWER 7, Y5N ONE (09:16)
[2017-07-24] MEDS: DULoxetine HCL 30 MG CAPSULE.DR (FP) PO SCH (09:19)
[2017-07-24] MEDS: TOLTERODINE TARTRATE LA 2 MG CAP.SR.24H PO SCH (09:19)
[2017-07-24] MEDS: ALLOPURINOL 300 MG TABLET (FP) PO SCH (09:19)
[2017-07-24] MEDS: LACTOBACILLUS ACIDOPHILUS 1 EACH TAB (FP) PO SCH (09:19)
[2017-07-24] MEDS: CLOPIDOGREL BISULFATE 75 MG TABLET (FP) PO SCH (09:19)
[2017-07-24] MEDS: LOSARTAN POTASSIUM 50 MG TABLET (FP) PO SCH (09:19)
[2017-07-24] MEDS: TAMSULOSIN HCL 0.4 MG CAP.ER.24H (FP) PO SCH (09:19)
[2017-07-24] MEDS: METOPROLOL TARTRATE 25 MG TABLET (FP) PO SCH (09:19)
--- NOTE | 2017-07-24 10:24 | PN ---
Physical Exam: SUBJECTIVE: Patient seen and examined at the bedside. Denies pain, states he is comfortable and offers no complaints. OBJECTIVE: Vital Signs Period Temp Pulse Resp BP Sys/Martinez Pulse Ox Last 24 Hr 97 F-98.4 F 60-68 18-18 132-158/67-89 97 GENERAL: The patient is awake, alert, and fully oriented, in no acute distress. HEAD: Normal with no signs of trauma. EYES: PERRL, extraocular movements intact, sclera anicteric, conjunctiva clear. No ptosis. ENT: Ears normal, nares patent, oropharynx clear without exudates, moist mucous membranes. NECK: Trachea midline, full range of motion, supple. LUNGS: Diminished breath sounds bilaterally, tolerating room air ABDOMEN: Soft, nontender, nondistended, normoactive bowel sounds, no guarding, no rebound, no hepatosplenomegaly, no masses. EXTREMITIES:R toe surgical site with minimal drainage, redness, b/l LE chronic venous stasis changes SKIN: bilateral lower ext edema, d/c ivf Laboratory Results - last 24 hr 07/23/17 07/23/17 07/23/17 11:59 12:40 17:30 WBC RBC Hgb Hct MCV MCH MCHC RDW Plt Count MPV Neutrophils % Lymphocytes % Monocytes % Eosinophils % Basophils % Sodium 136 Potassium 4.6 Chloride 103 Carbon Dioxide 24 Anion Gap 9 BUN 13 Creatinine 1.0 D Creat Clearance w eGFR > 60 POC Glucometer 214 178 Random Glucose 274 H D Calcium 8.2 L Magnesium 1.8 Total Bilirubin 0.5 AST 18 ALT 22 Alkaline Phosphatase 91 Total Protein 6.3 L Albumin 3.0 L 07/23/17 07/24/17 07/24/17 21:38 05:40 07:15 WBC 6.9 RBC 4.83 Hgb 13.9 Hct 43.1 MCV 89.3 MCH 28.8 MCHC 32.2 RDW 14.0 Plt Count 138 MPV 8.3 Neutrophils % 60.8 Lymphocytes % 25.9 Monocytes % 9.5 Eosinophils % 3.2 Basophils % 0.6 Sodium Potassium Chloride Carbon Dioxide Anion Gap BUN Creatinine Creat Clearance w eGFR POC Glucometer 186 142 Random Glucose Calcium Magnesium Total Bilirubin AST ALT Alkaline Phosphatase Total Protein Albumin 07/24/17 07:15 WBC RBC Hgb Hct MCV MCH MCHC RDW Plt Count MPV Neutrophils % Lymphocytes % Monocytes % Eosinophils % Basophils % Sodium 139 Potassium 4.0 Chloride 104 Carbon Dioxide 28 Anion Gap 7 L BUN 11 Creatinine 0.6 L D Creat Clearance w eGFR > 60 POC Glucometer Random Glucose 147 H D Calcium 8.2 L Magnesium 2.0 Total Bilirubin 0.4 AST 14 L D ALT 20 Alkaline Phosphatase 91 Total Protein 6.0 L Albumin 2.8 L Active Medications Generic Name Dose Route Start Last Admin Trade Name Freq PRN Reason Stop Dose Admin Acetaminophen 650 mg 07/21/17 20:20 Tylenol - PO Q6H PRN MODERATE PAIN Allopurinol 600 mg 07/22/17 10:00 07/24/17 09:19 Zyloprim - PO 600 mg DAILY SYLVIA Administration Atorvastatin Calcium 20 mg 07/21/17 22:00 07/23/17 21:42 Lipitor - PO 20 mg HS SYLVIA Administration Clopidogrel Bisulfate 75 mg 07/22/17 10:00 07/24/17 09:19 Plavix - PO 75 mg DAILY SYLVIA Administration Duloxetine HCl 60 mg 07/23/17 10:00 07/24/17 09:19 Cymbalta - PO 60 mg DAILY SYLVIA Administration Heparin Sodium (Porcine) 5,000 unit 07/22/17 06:00 07/24/17 06:05 Heparin - SQ 5,000 unit TID SYLVIA Administration Vancomycin HCl 1,000 mg/ 250 mls @ 200 mls/hr 07/22/17 12:00 07/23/17 23:50 Dextrose IVPB 200 mls/hr BID@0000,1200 SYLVIA Administration Insulin Aspart 1 vial 07/21/17 22:00 07/24/17 06:03 Novolog Vial Sliding Scale - SQ Not Given ACHS [facility] Protocol Insulin Detemir 30 units 07/21/17 22:00 07/23/17 21:42 Levemir Vial SQ 30 units HS [facility] Administration Lactobacillus Acidophilus 1 tab 07/23/17 11:15 07/24/17 09:19 Bacid - PO 1 tab DAILY SYLVIA Administration Losartan Potassium 100 mg 07/23/17 10:00 07/24/17 09:19 Cozaar - PO 100 mg DAILY SYLVIA Administration Metoprolol Tartrate 25 mg 07/22/17 10:00 07/24/17 09:19 Lopressor - PO 25 mg DAILY SYLVIA Administration Silver Sulfadiazine 1 applic 07/23/17 14:00 07/23/17 15:00 Silvadene - TP 1 applic DAILY SYLVIA Administration Tamsulosin HCl 0.4 mg 07/21/17 20:15 07/24/17 09:19 Flomax - PO 0.4 mg DAILY@0830 SY[facility]IA Administration Tolterodine Tartrate 2 mg 07/22/17 10:00 07/24/17 09:19 Detrol La - PO 2 mg DAILY SYLVIA Administration ASSESSMENT/PLAN: Patient is a 62 year old male with a significant past medical history of hypertension, hyperlipidemia, diabetes mellitus, peripheral vascular disease, and BPH. He was admitted on 07/21/2017 for cellulitis and hematoma of the right great toe. 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 ID: Cellulitis and hematoma of right great toe Foot xray unremarkable for fracture or osteomylitis On Vacomycin as per ID Patient is s/p bedside I&D of right great toe Awaiting wound cultures final report ID following Cardiology: Hypertension, controlled On Losartan, Metoprolol Hyperlipidemia, chronic On Lipitor Endocrine: Diabetes, chronic BGM, Novolog, Levemir F.E.N. Fluids: tolerating PO Electrolytes: monitor Nutrition: diabetic diet Prophylaxis: DVT: Heparin TID GI: Bacid Disposition: full code. Visit type - Emergency Visit Emergency Visit: Yes ED Registration Date: 07/21/17 Care time: The patient presented to the Emergency Department on the above date and was hospitalized for further evaluation of their emergent condition. - New Patient This patient is new to me today: No - Critical Care Critical Care patient: No - Discharge Referral Referred to [facility] Med P.C.: No
[2017-07-24] MEDS: VANCOMYCIN 1,000 MG in DEXTROSE 5%-WATER - 250 ML IVPB SCH ×2 (12:58→23:45)
[2017-07-24] MEDS: SILVER SULFADIAZINE 1% TOP CREAM 50 GM JAR TP SCH (15:09)
[2017-07-24] MEDS: ATORVASTATIN CA 20 MG TABLET (FP) PO SCH (21:45)
[2017-07-24] MEDS: INSULIN DETEMIR 100 UNITS/ML MDV SQ SCH (21:45)
[2017-07-25] MEDS: HEPARIN NA (PORCINE) 5,000 UNITS/ML 1ML VIAL SQ SCH ×2 (05:33→13:38)
[2017-07-25] MEDS: INSULIN SLIDING SCALE (NOVOLOG) 1 VIAL SQ SCH ×2 (06:25→12:23)
[2017-07-25 07:47] LABS: BASO % 0.6 % (0-2.0); EOS % 2.5 % (0-4.5); HEMATOCRIT 40.7 % (35.4-49); HEMOGLOBIN 13.5 GM/dL (11.7-16.9); MCH 29.1 pg (25.7-33.7); MCHC 33.1 g/dl (32.0-35.9); MEAN CELL VOLUME 87.9 fl (80-96); MEAN PLT VOLUME 8.2 fl (7.5-11.1); MONO % 8.7 % (3.8-10.2); NEUT % 68.2 % (42.8-82.8); PLATELET COUNT 144 K/MM3 (134-434); RBC 4.63 M/mm3 (4.00-5.60); WHITE BLOOD COUNT 7.3 K/mm3 (4.0-10.0)
[2017-07-25 08:08] LABS: ALBUMIN 2.7 g/dl (3.4-5.0); ANION GAP 6 (8-16); BLOOD UREA NITROGEN 10 mg/dL (7-18); CALCIUM 7.7 mg/dL (8.5-10.1); CHLORIDE 105 mmol/L (98-107); CO2 28 mmol/L (21-32); GLUCOSE,RANDOM 142 mg/dL (74-106); MAGNESIUM 1.7 mg/dL (1.8-2.4); SODIUM 139 mmol/L (136-145)
[2017-07-25 08:12] LABS: ALK PHOS 92 U/L (45-117); BILIRUBIN,TOTAL 0.7 mg/dL (0.2-1.0); CREATININE 0.6 mg/dL (0.7-1.3); SGOT/AST 22 U/L (15-37); SGPT/ALT 22 U/L (12-78); TOT PROT 5.6 g/dl (6.4-8.2)
[2017-07-25] MEDS ORDERED: MAGNESIUM SULF 50% (8.12 MEQ/2 ML-1 GM VIAL) IVPB ONE (09:05)
[2017-07-25] MEDS ORDERED: MAGNESIUM SULFATE IN WATER 2 GM/50 ML IVPB IVPB ONE (10:00)
[2017-07-25] MEDS ORDERED: PT OWN MED DRAWER 7, Y5N ONE (10:43)
[2017-07-25] MEDS: DULoxetine HCL 30 MG CAPSULE.DR (FP) PO SCH (10:58)
[2017-07-25] MEDS: ALLOPURINOL 300 MG TABLET (FP) PO SCH (10:58)
[2017-07-25] MEDS: LOSARTAN POTASSIUM 50 MG TABLET (FP) PO SCH (10:59)
[2017-07-25] MEDS: CLOPIDOGREL BISULFATE 75 MG TABLET (FP) PO SCH (10:59)
[2017-07-25] MEDS: TAMSULOSIN HCL 0.4 MG CAP.ER.24H (FP) PO SCH (10:59)
[2017-07-25] MEDS: TOLTERODINE TARTRATE LA 2 MG CAP.SR.24H PO SCH (10:59)
[2017-07-25] MEDS: METOPROLOL TARTRATE 25 MG TABLET (FP) PO SCH (11:00)
[2017-07-25] MEDS: SILVER SULFADIAZINE 1% TOP CREAM 50 GM JAR TP SCH (11:00)
[2017-07-25] MEDS: LACTOBACILLUS ACIDOPHILUS 1 EACH TAB (FP) PO SCH (11:00)
--- NOTE | 2017-07-25 11:52 | PN ---
Progress Note (short form) - Note Progress Note: Patient was seen in bed. Patient had no new complaints and was asymptomatic at this time on plantar left foot. no pain. nvsgi, +granulating wound right big toe, +resolving localized cellulitis, - drainage, -mal odor, -tender, wbc=7.3 Problem List - Problems (1) Cellulitis Assessment/Plan: Hematoma right hallux Foreign body left plantar foot? Silvadene dressing applied. Post op shoe to right side. Patient can be dc from Podiatry stand point if ok with medicine and and ID. will follow till dc. Code(s): L03.90 - CELLULITIS, UNSPECIFIED Qualifiers: Site of cellulitis: extremity Site of cellulitis of extremity: toe Laterality: right Qualified Code(s): L03.031 - Cellulitis of right toe
[2017-07-25] MEDS: VANCOMYCIN 1,000 MG in DEXTROSE 5%-WATER - 250 ML IVPB SCH (13:11)
[2017-07-25 13:51] VITALS: TEMP 98.6
[2017-07-25 15:00] VITALS: BP 127/57; PULSE 60
--- NOTE | 2017-07-25 15:37 | PN ---
Progress Note, Physician Chief Complaint: S/P I&D R great toe hematoma No c/o toe pain No fever/ chills Afebrile WBC WNL BC (-) Wound c/s negative - Current Medication List Current Medications: Active Medications Acetaminophen (Tylenol -) 650 mg PO Q6H PRN PRN Reason: MODERATE PAIN Allopurinol (Zyloprim -) 600 mg PO DAILY [facility] Last Admin: 07/25/17 10:58 Dose: 600 mg Atorvastatin Calcium (Lipitor -) 20 mg PO HS [facility] Last Admin: 07/24/17 21:45 Dose: 20 mg Clopidogrel Bisulfate (Plavix -) 75 mg PO DAILY [facility] Last Admin: 07/25/17 10:59 Dose: 75 mg Duloxetine HCl (Cymbalta -) 60 mg PO DAILY [facility] Last Admin: 07/25/17 10:58 Dose: 60 mg Heparin Sodium (Porcine) (Heparin -) 5,000 unit SQ TID [facility] Last Admin: 07/25/17 13:38 Dose: 5,000 unit Vancomycin HCl 1,000 mg/ (Dextrose) 250 mls @ 200 mls/hr IVPB BID@0000,1200 [facility] Last Admin: 07/25/17 13:11 Dose: 200 mls/hr Insulin Aspart (Novolog Vial Sliding Scale -) 1 vial SQ ACHS [facility] PRN Reason: Protocol Last Admin: 07/25/17 12:23 Dose: 2 units Insulin Detemir (Levemir Vial) 30 units SQ HS [facility] Last Admin: 07/24/17 21:45 Dose: 30 units Lactobacillus Acidophilus (Bacid -) 1 tab PO DAILY [facility] Last Admin: 07/25/17 11:00 Dose: 1 tab Losartan Potassium (Cozaar -) 100 mg PO DAILY [facility] Last Admin: 07/25/17 10:59 Dose: 100 mg Metoprolol Tartrate (Lopressor -) 25 mg PO DAILY [facility] Last Admin: 07/25/17 11:00 Dose: 25 mg Silver Sulfadiazine (Silvadene -) 1 applic TP DAILY [facility] Last Admin: 07/25/17 11:00 Dose: 1 applic Tamsulosin HCl (Flomax -) 0.4 mg PO DAILY@0830 [facility] Last Admin: 07/25/17 10:59 Dose: 0.4 mg Tolterodine Tartrate (Detrol La -) 2 mg PO DAILY [facility] Last Admin: 07/25/17 10:59 Dose: 2 mg - Objective Vital Signs: Vital Signs Temperature 98.6 F 07/25/17 10:00 Pulse Rate 60 07/25/17 14:59 Respiratory Rate 18 07/25/17 10:00 Blood Pressure 127/57 07/25/17 14:59 O2 Sat by Pulse Oximetry (%) 97 07/24/17 21:00 Constitutional: Yes: No Distress, Obese Eyes: Yes: Conjunctiva Clear Cardiovascular: Yes: Regular Rate and Rhythm, S1, S2 Respiratory: Yes: CTA Bilaterally Gastrointestinal: Yes: Normal Bowel Sounds, Soft. No: Tenderness Extremities: Yes: Other (R great toe swelling/ erythema improved. Denuded area without drainage.) Labs: CBC, BMP 07/25/17 06:30 07/25/17 06:30 INR, PTT INR 1.03 (0.82-1.09) 07/21/17 13:35 Assessment/Plan Cellulitis R great toe- improved S/P I&D R great toe hematoma Diabetes mellitus D/C IV antibiotics Bactrim DS po bid x 7d Outpatient podiatry follow up this week
--- NOTE | 2017-07-25 16:09 | DS ---
Physical Exam: SUBJECTIVE: Patient seen and examined at the bedside. For discharge today, pt to continue antibiotics PO as per ID Bactrim DS x 7 days BID ordered OBJECTIVE: Vital Signs Period Temp Pulse Resp BP Sys/Martinez Pulse Ox Last 24 Hr 97.8 F-98.6 F 60-67 18-18 127-151/57-77 97 PHYSICAL EXAM GENERAL: The patient is awake, alert, and fully oriented, in no acute distress. HEAD: Normal with no signs of trauma. EYES: PERRL, extraocular movements intact, sclera anicteric, conjunctiva clear. No ptosis. ENT: Ears normal, nares patent, oropharynx clear without exudates, moist mucous membranes. NECK: Trachea midline, full range of motion, supple. LUNGS: Diminished breath sounds bilaterally, tolerating room air ABDOMEN: Soft, nontender, nondistended, normoactive bowel sounds, no guarding, no rebound, no hepatosplenomegaly, no masses. EXTREMITIES:R toe surgical site with minimal drainage, redness, b/l LE chronic venous stasis changes SKIN: bilateral lower ext edema, d/c ivf LABS Laboratory Results - last 24 hr 07/22/17 07/24/17 07/24/17 11:56 17:31 21:43 WBC RBC Hgb Hct MCV MCH MCHC RDW Plt Count MPV Neutrophils % Lymphocytes % Monocytes % Eosinophils % Basophils % Sodium Potassium Chloride Carbon Dioxide Anion Gap BUN Creatinine Creat Clearance w eGFR POC Glucometer 188 196 214 Random Glucose Calcium Magnesium Total Bilirubin AST ALT Alkaline Phosphatase Total Protein Albumin 07/25/17 07/25/17 07/25/17 05:29 06:30 06:30 WBC 7.3 RBC 4.63 Hgb 13.5 Hct 40.7 MCV 87.9 MCH 29.1 MCHC 33.1 RDW 14.0 Plt Count 144 MPV 8.2 Neutrophils % 68.2 Lymphocytes % 20.0 D Monocytes % 8.7 Eosinophils % 2.5 Basophils % 0.6 Sodium 139 Potassium 4.0 Chloride 105 Carbon Dioxide 28 Anion Gap 6 L BUN 10 Creatinine 0.6 L Creat Clearance w eGFR > 60 POC Glucometer 158 Random Glucose 142 H Calcium 7.7 L Magnesium 1.7 L Total Bilirubin 0.7 D AST 22 D ALT 22 Alkaline Phosphatase 92 Total Protein 5.6 L Albumin 2.7 L 07/25/17 11:17 WBC RBC Hgb Hct MCV MCH MCHC RDW Plt Count MPV Neutrophils % Lymphocytes % Monocytes % Eosinophils % Basophils % Sodium Potassium Chloride Carbon Dioxide Anion Gap BUN Creatinine Creat Clearance w eGFR POC Glucometer 192 Random Glucose Calcium Magnesium Total Bilirubin AST ALT Alkaline Phosphatase Total Protein Albumin HOSPITAL COURSE: Date of Admission:07/21/17 Date of Discharge: 07/25/17 ASSESSMENT/PLAN: Patient is a 62 year old male with a significant past medical history of hypertension, hyperlipidemia, diabetes mellitus, peripheral vascular disease, and BPH. He was admitted on 07/21/2017 for cellulitis and hematoma of the right great toe. 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 ID: Cellulitis and hematoma of right great toe Foot xray unremarkable for fracture or osteomylitis Treated with Vacomycin as per ID. Will be discharged on Bactrim DS BID x 7 more days Podiatry follow up on Tuesday VNS for wound care, daily dressing changes on d/c instructions Cardiology: Hypertension, controlled On Losartan, Metoprolol Hyperlipidemia, chronic On Lipitor Endocrine: Diabetes, chronic BGM, Novolog, Levemir Disposition: discharge home today with PO antibiotics. full code. Minutes to complete discharge: 60 Discharge Summary Reason For Visit: CELLULITIS; HEMATOMA OF TOE OF RIGHT FOOT Current Active Problems Cellulitis (Acute) Hematoma of toe of right foot (Acute) Condition: Improved - Instructions Diet, Activity, Other Instructions: Mr. Land: Please continue the antibiotics of Bactrim DS twice per day for 7 more days. This has been called into your pharmacy. We have arranged for a nursing follow up to help care for your foot wound. The dressing instructions for your right foot great toe hematoma is as follows: Wound Care Instructions: 1. Wash your hands and apply gloves 2. Clean wound with sterile saline and dry thoroughly 3. Apply silvadene dressing to wound. Change right great toe wound daily, secure with sterile jero and apply surgical boot Please return to the ER if you have any worsening pain, or if your wound starts to drain pus, blood or if you have a foul odor. Please call me with any questions that you may have. [facility] @ [facility] [phone] Referrals: Sheldon Kc MD [Primary Care Provider] - Haris Seals DPM [Staff Physician] - Disposition: HOME - Home Medications Comprehensive Discharge Medication List: Ambulatory Orders Allopurinol 600 mg PO DAILY 07/21/17 Clopidogrel Bisulfate [Plavix -] 75 mg PO DAILY 07/21/17 Dapagliflozin Propanediol [Farxiga] 5 mg PO DAILY 07/21/17 Duloxetine HCl [Cymbalta -] 60 mg PO DAILY 07/21/17 Glipizide 5 mg PO DAILY 07/21/17 Insulin Glargine,Hum.rec.anlog [Lantus Solostar] 30 unit SQ HS 07/21/17 Losartan Potassium 100 mg PO DAILY 07/21/17 Metoprolol Tartrate 25 mg PO DAILY 07/21/17 Saxagliptin HCl [Onglyza] 5 mg PO DAILY 07/21/17 Simvastatin 40 mg PO HS 07/21/17 Tamsulosin HCl [Flomax -] 0.4 mg PO DAILY 07/21/17 Tolterodine Tartrate [Tolterodine Tartrate ER] 2 mg PO DAILY 07/21/17 Lactobacillus Acidophilus [Bacid -] 1 tab PO DAILY tab 07/25/17 Silver Sulfadiazine 1% Top Cr [Silvadene -] 1 applic TP DAILY #1 jar 07/25/17 Sulfamethoxazole/Trimethoprim [Bactrim DS -] 1 each PO BID #10 tablet 07/25/17 This patient is new to me today: No Emergency Visit: Yes ED Registration Date: 07/21/17 Care time: The patient presented to the Emergency Department on the above date and was hospitalized for further evaluation of their emergent condition. Critical Care patient: No - Discharge Referral Referred to [facility] No
[2017-07-25] MEDS ORDERED: SULFAMETHOXAZOLE/TRIMETHOPRIM 800MG/160MG D.S. TABLET PO SCH (22:00)
--- NOTE | 2017-07-27 15:06 | PATH ---
Surgical Pathology Report Patient Name: AUSTYN MCGILL [facility]. Rec. 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 Electronically Signed Alva Todd M.D. Gross Description Received in formalin labeled with the patient's name and indicated on the requisition to be a blister from the right great toe, is a 2.0 x 2.0 cm cast skin shave. Diamond Setter sections are submitted in one cassette. /07/22/2017 saudi/07/22/2017
== END 2017-07-25 16:47 | disposition home or self-care (01) | DRG 603 ==
LOC: JER 11:20 → JERBED 17:58 → J5S 07-22 15:33
PROVIDERS: ADMIT Internal Medicine; ATTEND Nurse Practitioner Family
PROC: 0H9MXZX Drainage of Right Foot Skin, External Approach, Diagnostic (ICD-10-PCS; principal; 2017-07-22)
DX: L03.031 Cellulitis of right toe (principal); Z68.41 Body mass index [BMI] 40.0-44.9, adult; M79.81 Nontraumatic hematoma of soft tissue; E66.9 Obesity, unspecified; E11.9 Type 2 diabetes mellitus without complications; Z79.4 Long term (current) use of insulin; Z79.84 Long term (current) use of oral hypoglycemic drugs; I10 Essential (primary) hypertension; I25.10 Atherosclerotic heart disease of native coronary artery without angina pectoris; Z95.1 Presence of aortocoronary bypass graft; E78.5 Hyperlipidemia, unspecified; M10.9 Gout, unspecified; N40.0 Benign prostatic hyperplasia without lower urinary tract symptoms; I73.9 Peripheral vascular disease, unspecified
CPT/HCPCS: 36415; 73630-TC-LT; 73630-TC-RT; 80048; 80053; 82962; 83735; 84100; 85025; 85610; 87040; 87070; 87205; 88304-TC; 94010; 97116-GP; 97161-GP; 99284-25; J1644

== ENCOUNTER 2018-03-15 21:27 | Observation (INO) | payer OTHER ==
--- NOTE | 2018-03-15 21:46 | PDOC ---
Rapid Medical Evaluation Time Seen by Provider: 03/15/18 21:41 Medical Evaluation: Allergies Allergy/AdvReac Type Severity Reaction Status Date / Time bacitracin Allergy Verified 07/21/17 11:45 cimetidine [From Tagamet] Allergy Verified 07/21/17 11:45 03/15/18 21:42 I have performed a brief in-person evaluation of this patient. The patient presents with a chief complaint of:Acute on chronic LBP, no b/b incontinence, saddle anesthesia, LE weakness. No recent trauma. No sxs. No abd pain. H/o chronic lower back pain, herniated disc to LS spine on recent MRI , on multiple pain meds including fentanyl patch and oxycodone, s/p recent admission at [facility] for intractable back pain, f/u with Dr Alex Rodriguez and told definite surgery in near future. Also ahs h/o HTN, DM, CABG, s/p appy, knee surgeries Pertinent physical exam findings:in NAD, sitting in W/C at triage I have ordered the following:nothing The patient will proceed to the ED for further evaluation. Discharge Disposition - Diagnosis Intractable back pain - Discharge Dispostion Last Admission D/C Date: 07/25/17 - Referrals Referrals: Sheldon Kc MD [Primary Care Provider] - - Patient Instructions - Post Discharge Activity
[2018-03-16] MEDS ORDERED: LIDOCAINE 5% TOPICAL PATCH TP ONE (01:28)
[2018-03-16] MEDS ORDERED: ONDANSETRON 4 MG/2 ML VIAL IVPUSH ONE (01:42)
[2018-03-16] MEDS ORDERED: morphine CARPU-JECT 4 MG/1 ML DISP.SYRIN IVPUSH ONE (01:42)
--- NOTE | 2018-03-16 01:54 | PDOC ---
History of Present Illness - General Chief Complaint: Pain Stated Complaint: BACK PAIN Time Seen by Provider: 03/15/18 21:41 History Source: Patient, Family, Old Records Exam Limitations: No Limitations - History of Present Illness Initial Comments: 62 y/o male presenting to [facility] ER via private auto complaining of worsening lower back pain. Pain is bilateral and radiates down right leg to knee. Described as sharp in nature. Pt has a history of chronic back pain with severe spinal stenosis at L2-L3 and L3-L4 (see below for brief floor renovator of MRI report). Pt was discharged from [facility] on 02/25/2018 following a several week admission for intractable lower back pain. He was evaluated by Dr. Rodriguez outpatient on 03/08/2018 who reportedly told pt he is a surgical candidate but did not schedule an OR date. Further instructed pt to come to [facility] ER if his symptoms worsened, and that he would be admitted. Pt would like to be admitted for pain control. Pt denies numbness/ paresthesia in lower extremities, incontinence of bowel or bladder, or saddle anesthesia. Denies recent trauma to the area. Home pain regiment: - Fentanyl Patch - Lidoderm Patch - Percocet TID, PRN MRI Results from [facility] Dated 02/17/2018: 1) No compression fracture of epidural abscess. 2) Multilevel degenerative changes resulting in severe spinal canal stenosis at L2-L3 and L3-L4 with compression of the cauda equina nerve roots. 3) Disc extrusion at L2-L3 results in severe narrowing of the right lateral recess. Lateral recess narrowing is also greater on the right at L3-L4 and L4- L5. 4) Endplate degenerative changes with edema at multiple levels. Facet arthropathy at L3-L4. PCP: Dr. Chelly Kc Orthopedist: Dr. Alex Rodriguez Medical Hx: - Multilevel degenerative changes with severe spinal canal stenosis at L2-L3 and L3-L4 with compression of cauda equina nerve roots - HTN - HLD - DM - BPH Surgical Hx: - CABG 2019 - Appendectomy - Rectal Fistula - Arthroscopic repair of R and L knee Past History - Past Medical History Allergies/Adverse Reactions: Allergies Allergy/AdvReac Type Severity Reaction Status Date / Time bacitracin Allergy Verified 03/15/18 21:45 cimetidine [From Tagamet] Allergy Verified 03/15/18 21:45 Home Medications: Ambulatory Orders Allopurinol 600 mg PO DAILY 07/21/17 Clopidogrel Bisulfate [Plavix -] 75 mg PO DAILY 07/21/17 Dapagliflozin Propanediol [Farxiga] 5 mg PO DAILY 07/21/17 Duloxetine HCl [Cymbalta -] 60 mg PO DAILY 07/21/17 Glipizide 5 mg PO DAILY 07/21/17 Insulin Glargine,Hum.rec.anlog [Lantus Solostar] 30 unit SQ HS 07/21/17 Losartan Potassium 100 mg PO DAILY 07/21/17 Metoprolol Tartrate 25 mg PO DAILY 07/21/17 Saxagliptin HCl [Onglyza] 5 mg PO DAILY 07/21/17 Simvastatin 40 mg PO HS 07/21/17 Lactobacillus Acidophilus [Bacid -] 1 tab PO DAILY tab 07/25/17 Silver Sulfadiazine 1% Top Cr [Silvadene -] 1 applic TP DAILY #1 jar 07/25/17 Sulfamethoxazole/Trimethoprim [Bactrim DS -] 1 each PO BID #10 tablet 07/25/17 Aspirin [Adult Aspirin] 81 mg PO 03/16/18 Diphenoxylate 2.5/Atropine.025 [Lomotil -] 1 combo PO Q6H PRN 03/16/18 Diphenoxylate HCl/Atropine [Diphenoxylat-Atrop 2.5-0.025/5] 03/16/18 Docusate Sodium [Colace] 400 mg PO 03/16/18 Fentanyl 50 mcg Q3D 03/16/18 Gabapentin [Neurontin -] 300 mg PO HS 03/16/18 Hydrocodone/Acetaminophen [Hydrocodone-Acetamin 7.5-300] 7.5 mg PO PRN 03/16/18 Lidocaine 5% Patch [Lidoderm -] 1 patch PRN 03/16/18 Oxcarbazepine 600 mg PO BID 03/16/18 Tamsulosin HCl [Flomax] 0.4 mg PO DAILY 03/16/18 oxyCODONE HCL [Roxybond] 30 mg PO Q4HWA PRN 03/16/18 Cancer: Yes (skin:Basal Cell, Squamous Cell) Cardiac Disorders: Yes (CAD) COPD: No DVT: No Diabetes: Yes Disorders: Yes (kidney stones) HTN: Yes - Surgical History Appendectomy: Yes Cardiac Surgery: Yes (CABG x 4 (2010), stent (2011)) Orthopedic Surgery: Yes (b/l knee arthroscopy) - Immunization History Immunization Up to Date: Yes - Suicide/Smoking/Psychosocial Hx Smoking History: Never smoked Hx Alcohol Use: No Drug/Substance Use Hx: No Substance Use Type: None Review of Systems - Review of Systems Able to Perform ROS?: Yes Comments:: In addition to that documented in the HPI above, the additional ROS was obtained : Constitutional: Denies fevers or chills Eyes: Denies vision changes ENMT: Denies sore throat CV: Denies chest pain Resp: Denies SOB GI: Denies vomiting or diarrhea *Physical Exam - Vital Signs Last Vital Signs Temp Pulse Resp BP Pulse Ox 98.9 F 76 18 157/82 98 03/15/18 21:41 03/15/18 21:41 03/15/18 21:41 03/15/18 21:41 03/15/18 21:41 - Physical Exam Comments: Constitutional: Well-developed, well-nourished, obese male in no acute distress. Found semi-fowlers in hospital bed. Alert and oriented x4. Answered all questions appropriately and completely. Speech was non-labored, non- pressured. HEENT: Normocephalic. No obvious external signs of trauma. Hearing grossly normal. No nasal discharge. Neck is supple, trachea is midline.. Cardiovascular: Regular rate and regular rhythm. No murmur, rubs, clicks, or gallops. Peripheral pulses: Radial pulses full. Respiratory: Breathing unlabored. Equal chest rise and fall. Clear to auscultation bilaterally. No stridor, no wheezing, no rhonchi. Gastrointestinal: abdomen is soft, non-tender, non-distended. Neuro: Alert and oriented. Moving all four extremities spontaneously. Intact sensation to all four extremities. Lower extremity: proximal and distal strength 5/5, scientific glass blower strength 5/5 - equal and symmetric. Plantar flexion and dorsiflexion 5/5. MALE RECTAL: Good sphincter tone with no anal, perineal or rectal lesions. No saddle paresthesia. RN chaperoned exam. Skin: Warm, dry, and intact. No bruising, rashes, or other lesions. No palpable nodules. Psych: Affect: appropriate. Mood: normal. ED Treatment Course - LABORATORY CBC & Chemistry Diagram: 03/17/18 06:00 03/17/18 06:00 Medical Decision Making - Medical Decision Making *Reviewed vital signs, nursing notes, and prior visit documentation (if available). 62 y/o male complaining of worsening lower back pain with radiation to right leg. No h/o trauma. Afebrile. Vitals unremarkable. Suspect progression of disease. Low suspicion for cauda equina. Ordered pre-op labs, EKG, and CXR for likely admission. Ordered lidoderm patch, morphine, and zofran for acute symptom management. 04:[address] Rodriguez. Requested pt to be admitted and ordered dilaudid, flexeril, and 10 decadron. Will see the pt in the morning. Consult request placed in [facility]. Attending admitted pt to hospitalist service. *DC/Admit/Observation/Transfer Diagnosis at time of Disposition: Intractable back pain - Discharge Dispostion Condition at time of disposition: Fair Decision to Admit order: Yes - Referrals - Patient Instructions - Post Discharge Activity
[2018-03-16] MEDS ORDERED: MORPHINE SULFATE 2 MG/ML VIAL ONE (02:22)
[2018-03-16] MEDS ORDERED: LIDOCAINE 5% TOPICAL PATCH ONE (02:23)
[2018-03-16] MEDS ORDERED: ONDANSETRON 4 MG/2 ML VIAL ONE (02:23)
[2018-03-16 03:06] LABS: HEMATOCRIT 41.8 % (35.4-49); HEMOGLOBIN 14.2 GM/dL (11.7-16.9); MCH 29.2 pg (25.7-33.7); MEAN PLT VOLUME 7.8 fl (7.5-11.1); PLATELET COUNT 273 K/MM3 (134-434); RBC 4.87 M/mm3 (4.00-5.60); RDW 15.6 % (11.9-15.9); WHITE BLOOD COUNT 8.2 K/mm3 (4.0-10.0)
[2018-03-16 03:18] LABS: INR 1.05 (0.83-1.09); PROTHROMBIN TIME (PATIENT) 11.9 SEC (9.7-13.0)
[2018-03-16 03:21] LABS: ACTIVATED PTT 29.9 SECONDS (25.2-36.5)
[2018-03-16 03:27] LABS: ALBUMIN 3.7 g/dl (3.4-5.0); ALK PHOS 121 U/L (45-117); ANION GAP 7 MMOL/L (8-16); BILIRUBIN,TOTAL 0.5 mg/dL (0.2-1); BLOOD UREA NITROGEN 21 mg/dL (7-18); CALCIUM 9.1 mg/dL (8.5-10.1); CHLORIDE 100 mmol/L (98-107); CO2 29 mmol/L (21-32); CREATININE 0.8 mg/dL (0.55-1.3); GLUCOSE,RANDOM 223 mg/dL (74-106); POTASSIUM 4.5 mmol/L (3.5-5.1); SGOT/AST 23 U/L (15-37); SGPT/ALT 36 U/L (13-61); SODIUM 136 mmol/L (136-145); TOT PROT 7.2 g/dl (6.4-8.2)
[2018-03-16] MEDS ORDERED: DEXAMETHASONE SOD PHOSPHATE 10 MG/1 ML VIAL IVPUSH ONE (04:10)
[2018-03-16] MEDS ORDERED: CYCLOBENZAPRINE HCL 10 MG TABLET (FP) PO ONE ×2 (04:10→05:15)
[2018-03-16] MEDS ORDERED: HYDROmorphone HCL CARPU-JECT 2 MG/1 ML DISP.SYRIN IVPUSH ONE (04:14)
--- NOTE | 2018-03-16 04:43 | PDOC ---
Attending Attestation - Resident Resident Name: Dave Ybarra - ED Attending Attestation I have performed the following: I have examined & evaluated the patient, The case was reviewed & discussed with the resident, I agree w/resident's findings & plan, Exceptions are as noted - HPI HPI: 03/16/18 04:45 The patient is a 62 year old male, with a significant past medical history of spinal stenosis, chronic back pain, IDDM, CAD with CABG in 2009, HLD, HTN, gout , who presents to the emergency department with back pain. He describes his back pain as radiating to his right lower extremity. The patient also endorses weakness in his right lower extremity secondary to pain. As per patient, his back pain is chronic and is not being well-controlled with his at home medications. The patient was discharged a week and half ago from [facility] after a 2 week stay for pain management. The patient is being followed up by Dr. Rodriguez, orthopedics, for back surgery. Denies numbness in LE. Is able to feel toilet paper when he wipes. He denies any recent fevers, chills, headache or dizziness. He denies any recent nausea, vomit, diarrhea or constipation. He denies any recent chest pain or shortness of breath. He denies any recent dysuria, frequency, urgency or hematuria. Allergies: Bacitracin, cimetidine Primary Care Physician: Dr. Kc - Physicial Exam PE: 03/16/18 04:46 agree with resident exam - Medical Decision Making 03/16/18 04:46 62yo M with MMP including chronic low back pain with severe lumbar stenosis presents with low back pain, poorly controlled with home fentanyl, lidocaine patch and percocet. Pt unable to ambulate. Pain improved with IV morphine but still unable to ambulate. Case discussed with Dr. Munoz by Dr. Ybarra, pt to be admitted for pain management and ortho consultation in the morning. 03/16/18 05:[address] Lisa, pt accepted for admission Case discussed in detail with admitting physician including history, physical exam and ancillary studies. Admitting physician has assumed care for the patient, will follow all pending diagnostics and will complete the evaluation and treatment. <Flor Murray - Last Filed: 03/16/18 05:12> Discharge Disposition - Discharge Dispostion Last Admission D/C Date: 07/25/17 Decision to Admit order: Yes <Flor Murray - Last Filed: 03/16/18 05:12> <Gonzales Dorado - Last Filed: 03/16/18 06:33> - Diagnosis Intractable back pain - Discharge Dispostion Condition at time of disposition: Fair - Referrals Referrals: Sheldon Kc MD [Primary Care Provider] - - Patient Instructions - Post Discharge Activity Work/School Note: Parent(s) Back to Work Note Attestations - Attestations 03/16/18 06:33 Documentation prepared by Gonzales Dorado, acting as medical transcription radiology for Flor Murray MD. <Gonzales Dorado - Last Filed: 03/16/18 06:33>
[2018-03-16] MEDS ORDERED: DEXAMETHASONE SOD PHOSPHATE 10 MG/1 ML VIAL ONE (05:18)
[2018-03-16] MEDS ORDERED: HYDROmorphone HCl 2 MG/ML VIAL ONE (05:18)
[2018-03-16] MEDS ORDERED: CYCLOBENZAPRINE HCL 10 MG TABLET (FP) ONE (05:18)
[2018-03-16] MEDS ORDERED: DOCUSATE SODIUM 100 MG CAPSULE (FP) PO PRN (06:43)
--- NOTE | 2018-03-16 07:04 | HP ---
CHIEF COMPLAINT: Back pain PCP: Dr. Sheldon Kc HISTORY OF PRESENT ILLNESS: The patient is a 62 yo m w/ PMH chronic back pain, HTN, HLD, DM, BPH wh comes into the ED c/o worsening back pain. The patient states that he began to feel this back pain in December and it has been getting progressively worse since then, requiring increasing amounts of medications to control his pain. The patient was recently discharged from [facility] on 02/25/2018 following a several week admission for intractable lower back pain. Upon discharge, the patient was assessed by Dr. Rodriguez, who stated that the patient was a surgical candidate. While waiting for the surgery to be scheduled, the patient's pain continued to worsen, prompting his presentation the ED for evaluation. His current home pain control regimen consists of fentanyl and lidoderm patches as well as percocet TID. Pt denies numbness/ paresthesia in lower extremities, incontinence of bowel or bladder, or saddle anesthesia. Denies recent trauma to the area. MRI Results from [facility] Dated 02/17/2018: 1) No compression fracture of epidural abscess. 2) Multilevel degenerative changes resulting in severe spinal canal stenosis at L2-L3 and L3-L4 with compression of the cauda equina nerve roots. 3) Disc extrusion at L2-L3 results in severe narrowing of the right lateral recess. Lateral recess narrowing is also greater on the right at L3-L4 and L4- L5. 4) Endplate degenerative changes with edema at multiple levels. Facet arthropathy at L3-L4. ER course was notable for: (1) Dr. Rodriguez consulted from the ED, suggested flexeril, decadron and admission for pain control (2) dilaudid 2mg, morphine 4mg (3) Recent Travel: none PAST MEDICAL HISTORY: see hpi PAST SURGICAL HISTORY: CABG 2019 Appendectomy rectal fistula, b/l knee arthroscopy Social History: Smoking: denies Alcohol: denies Drugs: denies Family History: non-contributory Allergies bacitracin Allergy (Verified 03/15/18 21:45) cimetidine [From Tagamet] Allergy (Verified 03/15/18 21:45) HOME MEDICATIONS: Home Medications Medication Instructions Recorded Allopurinol 600 mg PO DAILY 07/21/17 Clopidogrel Bisulfate [Plavix -] 75 mg PO DAILY 07/21/17 Dapagliflozin Propanediol [Farxiga] 5 mg PO DAILY 07/21/17 Duloxetine HCl [Cymbalta -] 60 mg PO DAILY 07/21/17 Glipizide 5 mg PO DAILY 07/21/17 Insulin Glargine,Hum.rec.anlog 30 unit SQ HS 07/21/17 [Lantus Solostar] Losartan Potassium 100 mg PO DAILY 07/21/17 Metoprolol Tartrate 25 mg PO DAILY 07/21/17 Saxagliptin HCl [Onglyza] 5 mg PO DAILY 07/21/17 Simvastatin 40 mg PO HS 07/21/17 Tamsulosin HCl [Flomax -] 0.4 mg PO DAILY 07/21/17 Tolterodine Tartrate [Tolterodine 2 mg PO DAILY 07/21/17 Tartrate ER] Lactobacillus Acidophilus [Bacid -] 1 tab PO DAILY tab 07/25/17 Silver Sulfadiazine 1% Top Cr 1 applic TP DAILY #1 jar 07/25/17 [Silvadene -] Sulfamethoxazole/Trimethoprim 1 each PO BID #10 tablet 07/25/17 [Bactrim DS -] REVIEW OF SYSTEMS CONSTITUTIONAL: Absent: fever, chills, diaphoresis, generalized weakness, malaise, loss of appetite, weight change HEENT: Absent: rhinorrhea, nasal congestion, throat pain, throat swelling, difficulty swallowing, mouth swelling, ear pain, eye pain, visual changes CARDIOVASCULAR: Absent: chest pain, syncope, palpitations, irregular heart rate, lightheadedness , peripheral edema RESPIRATORY: Absent: cough, shortness of breath, dyspnea with exertion, orthopnea, wheezing, stridor, hemoptysis GASTROINTESTINAL: Absent: abdominal pain, abdominal distension, nausea, vomiting, diarrhea, constipation, melena, hematochezia GENITOURINARY: Absent: dysuria, frequency, urgency, hesitancy, hematuria, flank pain, genital pain MUSCULOSKELETAL: Absent: myalgia, arthralgia, joint swelling, neck pain SKIN: Absent: rash, itching, pallor HEMATOLOGIC/IMMUNOLOGIC: Absent: easy bleeding, easy bruising, lymphadenopathy, frequent infections ENDOCRINE: Absent: unexplained weight gain, unexplained weight loss, heat intolerance, cold intolerance NEUROLOGIC: Absent: headache, focal paresthesias, dizziness, unsteady gait, seizure, mental status changes, bladder or bowel incontinence PSYCHIATRIC: Absent: anxiety, depression, suicidal or homicidal ideation, hallucinations. PHYSICAL EXAMINATION Vital Signs - 24 hr 03/15/18 03/16/18 21:41 06:36 Temperature 98.9 F 97.8 F Pulse Rate 76 Pulse Rate [ 66 Left Apical] Respiratory 18 18 Rate Blood Pressure 157/82 Blood Pressure 128/72 [Left Arm] O2 Sat by Pulse 98 95 Oximetry (%) GENERAL: Awake, alert, and fully oriented, in no acute distress. HEAD: Normal with no signs of trauma. EYES: Pupils equal, round and reactive to light, extraocular movements intact, sclera anicteric, conjunctiva clear. No lid lag. EARS, NOSE, THROAT: oropharynx clear without exudates. Moist mucous membranes. NECK: Normal range of motion, supple without lymphadenopathy, JVD, or masses. LUNGS: Breath sounds equal, clear to auscultation bilaterally. No wheezes, and no crackles. No accessory muscle use. HEART: Regular rate and rhythm, normal S1 and S2 without murmur, rub or gallop. ABDOMEN: Soft, nontender, not distended, normoactive bowel sounds, no guarding, no rebound, no masses. No hepatomegaly or splenomegaly. MUSCULOSKELETAL: Normal range of motion at all joints. No bony deformities. No CVA tenderness. Tenderness to palpation over the paraspinal areas in the lumbar and sacral spine. no bony tenderness LOWER EXTREMITIES: 2+ pulses, warm, well-perfused. No calf tenderness. No peripheral edema. NEUROLOGICAL: Cranial nerves II-X intact. Normal speech. strength 5/5 in LLE, 4 /5 RLE. strength 5/5 in upper extremities. PSYCHIATRIC: Cooperative. Good eye contact. Appropriate mood and affect. SKIN: Warm, dry, normal turgor, no rashes or lesions noted, normal capillary refill. Laboratory Results - last 24 hr 03/16/18 03/16/18 03/16/18 02:46 02:46 02:46 WBC 8.2 RBC 4.87 Hgb 14.2 Hct 41.8 MCV 86.0 MCH 29.2 MCHC 34.0 RDW 15.6 D Plt Count 273 D MPV 7.8 PT with INR 11.90 INR 1.05 PTT (Actin FS) 29.9 Sodium 136 Potassium 4.5 Chloride 100 Carbon Dioxide 29 Anion Gap 7 L BUN 21 H Creatinine 0.8 Creat Clearance w eGFR > 60 Random Glucose 223 H Calcium 9.1 Total Bilirubin 0.5 AST 23 ALT 36 Alkaline Phosphatase 121 H Total Protein 7.2 Albumin 3.7 ASSESSMENT/PLAN: The patient is a 62 yo m w/ PMH chronic low back pain, HLD, DM who comes into the ED for worsening low back pain. #Worsening low back pain -patient controlled with morphine, flexeril and decadron -will continue pain control with flexeril TID PRN and morphine 4mg Q4H PRN -Dr. Rodriguez consulted from ED, will await his evaluation -will begin bowel regimen with miralax daily and colace 100mg BID as patient on opiates and last BM 3 days ago #DM -holding home hypoglycemics -BGM, ISS ACHS #FEN -no fluids indicated -lytes WNL -diabetic diet #Prophy -heparin SQ 5k units TID #DIspo -admit for observation. -patients home medications need to be verified with patient's pharmacy Visit type - Emergency Visit Emergency Visit: Yes ED Registration Date: 03/16/18 Care time: The patient presented to the Emergency Department on the above date and was hospitalized for further evaluation of their emergent condition. - New Patient This patient is new to me today: Yes Date on this admission: 03/16/18 - Critical Care Critical Care patient: No Hospitalist Screening - Colonoscopy Questionnaire Colonoscopy Questionnaire: Colonoscopy Questionnaire - Patient: 50 - 75 years old and never had a screening colonoscopy: Unknown History of colon or rectal polyps, or CA: Unknown History of IBD, Crohn's disease or UC: Unknown History of abdominal radiation therapy as a child: Unknown - Relative: 1 with colon or rectal CA, or polyps at age 60 or younger: Unknown Colon or rectal CA diagnosed at age 45 or younger: Unknown Multiple relatives with colon or rectal CA: Unknown - Outcome: Screening Result: Negative Screen
--- NOTE | 2018-03-16 07:16 | PN ---
Teaching Attending Note Name of Resident: Yvan Lisa ATTENDING PHYSICIAN STATEMENT I saw and evaluated the patient. Chart, data, imaging reviewed. I reviewed the resident's note and discussed the case with the resident. I agree with the resident's findings and plan as documented. SUBJECTIVE: 62 y/o male presented to [facility] complaining of worsening lower back pain. Pain is bilateral and radiates down right leg to knee. Described as sharp in nature. Pt has a history of chronic back pain with severe spinal stenosis at L2-L3 and L3- L4. Pt was discharged from [facility] on 02/25/2018 following a several week admission for intractable lower back pain. He was evaluated by Dr. Rodriguez outpatient on 03/08/2018 who reportedly told pt he is a surgical candidate but did not schedule an OR date. Pt came in this time for worsening back pain. He received decadron, fentanyl, and flexeril in ER with improvement in pain. Orthopedist: Dr. Alex Rodriguez as per ER note: MRI Results from [facility] Dated 02/17/2018: 1) No compression fracture of epidural abscess. 2) Multilevel degenerative changes resulting in severe spinal canal stenosis at L2-L3 and L3-L4 with compression of the cauda equina nerve roots. 3) Disc extrusion at L2-L3 results in severe narrowing of the right lateral recess. Lateral recess narrowing is also greater on the right at L3-L4 and L4- L5. 4) Endplate degenerative changes with edema at multiple levels. Facet arthropathy at L3-L4. OBJECTIVE: Last Vital Signs Temp Pulse Resp BP Pulse Ox 97.8 F 66 18 128/72 95 03/16/18 06:36 03/16/18 06:36 03/16/18 06:36 03/16/18 06:36 03/16/18 06:36 general - appears comfortable, nad heent- at, nc, moist oral mucosa neck -supple chest - cta cv -s1+s2+rrr abdomen -soft, nt, bs+ back- lower midline spinal tenderness Neuro- 5/5 motor in lower ext Abnormal Lab Results 03/16/18 02:46 Anion Gap 7 L BUN 21 H Random Glucose 223 H Alkaline Phosphatase 121 H ASSESSMENT AND PLAN: 62yo man with spinal stenosis as described above and acute on chronic back pain. No bladder or bowel control loss. -observation -pain control with morphine iv prn -flexeril -dexamethasone IV -bed rest -orthopedics consult - Dr. Rodriguez -heparin sc for dvt ppx
[2018-03-16] MEDS ORDERED: HEPARIN NA (PORCINE) 5,000 UNITS/ML 1ML VIAL ONE (07:38)
[2018-03-16] MEDS: HEPARIN NA (PORCINE) 5,000 UNITS/ML 1ML VIAL SQ SCH ×3 (07:41→22:41)
[2018-03-16 08:29] LABS: HEMOGLOBIN 14.3 GM/dL (11.7-16.9); MCH 29.4 pg (25.7-33.7); MCHC 34.2 g/dl (32.0-35.9); MEAN CELL VOLUME 85.9 fl (80-96); MEAN PLT VOLUME 7.8 fl (7.5-11.1); PLATELET COUNT 240 K/MM3 (134-434); RBC 4.88 M/mm3 (4.00-5.60); RDW 15.5 % (11.9-15.9); WHITE BLOOD COUNT 8.1 K/mm3 (4.0-10.0)
[2018-03-16] MEDS ORDERED: TAMSULOSIN HCL 0.4 MG CAP.ER.24H (FP) PO SCH (08:30)
[2018-03-16 08:36] LABS: ANION GAP 8 MMOL/L (8-16); BLOOD UREA NITROGEN 20 mg/dL (7-18); CALCIUM 9.7 mg/dL (8.5-10.1); CHLORIDE 102 mmol/L (98-107); CO2 26 mmol/L (21-32); CREATININE 0.7 mg/dL (0.55-1.3); GLUCOSE,RANDOM 273 mg/dL (74-106); POTASSIUM 4.7 mmol/L (3.5-5.1); SODIUM 136 mmol/L (136-145)
[2018-03-16 09:06] LABS: INR 1.03 (0.83-1.09); PROTHROMBIN TIME (PATIENT) 11.6 SEC (9.7-13.0)
[2018-03-16 09:30] VITALS: BMI 38.4
--- NOTE | 2018-03-16 09:56 | EKG ---
Test Reason : Blood Pressure : / mmHG Vent. Rate : 082 BPM Atrial Rate : 082 BPM P-R Int : 226 ms QRS Dur : 130 ms QT Int : 406 ms P-R-T Axes : 011 -35 055 degrees QTc Int : 474 ms POOR DATA QUALITY, INTERPRETATION MAY BE ADVERSELY AFFECTED SINUS RHYTHM WITH 1ST DEGREE A-V BLOCK WITH PREMATURE SUPRAVENTRICULAR COMPLEXES LEFT AXIS DEVIATION RIGHT BUNDLE BRANCH BLOCK ABNORMAL ECG NO PREVIOUS ECGS AVAILABLE Confirmed by JEANINE DOHERTY, HUGO ([id number]) on 03/16/2018 9:56:28 AM Referred By: Confirmed By:HUGO SOLORZANO MD
[2018-03-16] MEDS: POLYETHYLENE GLYCOL 3350 119 GM BTL PO SCH (10:00)
[2018-03-16] MEDS ORDERED: TOLTERODINE TARTRATE LA 2 MG CAP.SR.24H PO SCH (10:00)
[2018-03-16] MEDS: DULoxetine HCL 30 MG CAPSULE.DR (FP) PO SCH (10:00)
[2018-03-16] MEDS: ALLOPURINOL 300 MG TABLET (FP) PO SCH (10:00)
[2018-03-16] MEDS ORDERED: FLU VACCINE QUAD 60 MCG/0.5 ML (MDV 18-19) IM ONE (10:00)
[2018-03-16] MEDS: LACTOBACILLUS ACIDOPHILUS 1 TABLET PO SCH (10:00)
[2018-03-16] MEDS ORDERED: CLOPIDOGREL BISULFATE 75 MG TABLET (FP) PO SCH (10:00)
[2018-03-16] MEDS: METOPROLOL TARTRATE 25 MG TABLET (FP) PO SCH (10:00)
[2018-03-16] MEDS ORDERED: INSULIN (NOVOLOG) ASPART 100 UNITS/ML 10ML VIAL ONE (11:48)
[2018-03-16] MEDS: INSULIN SLIDING SCALE (NOVOLOG) 1 VIAL SQ SCH ×3 (11:49→22:42)
--- NOTE | 2018-03-16 13:27 | PN ---
Teaching Attending Note Name of Resident: Isabella Velazquez ATTENDING PHYSICIAN STATEMENT I saw and evaluated the patient. I reviewed the resident's note and discussed the case with the resident. I agree with the resident's findings and plan as documented. SUBJECTIVE:c/o back pain that is radiating to both legs. states pain has been progressively worsening and now experiencing in the LLE which is new. states pain is improved with morphine. denies CP, SOB< fever, chills, N/V/C/D, bladder/ bowel incontinence/ last BM 2 days ago complication with anesthesia in the past with urinary retention. last stress test 2 years ago and reports it as negative. no CP or SOB with mild exertion OBJECTIVE: Last Vital Signs Temp Pulse Resp BP Pulse Ox 97.8 F 87 18 169/88 95 03/16/18 09:30 03/16/18 09:30 03/16/18 09:30 03/16/18 09:30 03/16/18 07:28 General NAD CV S1 S2 RRR no murmur/rub/gallop Lungs CTA B/L no wheezing/rales/rhonchi Extremities RLE hip flexor 3/5, sensation grossly intact ASSESSMENT AND PLAN: 62yo M with PMH Severe stenosis L2-L3 and L3-L4, HTN, DM and CAD S/p CABG presented with intractable back pain 1. Intractable back pain due to severe spinal stenosis with developing radiculopathy-pain is now controlled. was scheduled for surgery as outpatient however pain has been increasing. possible surgery here. pt is intermediate risk for intermediate risk procedure. METS >4. only complication with anesthesia in the past was urinary retention whcih resolved. further recommendations per ortho. pain and muscle relaxers. 2. Constipation- on chronic opiates. will start miralax and colace. if no BM in next 48H will give suppository 3. HTN- elevated but likely due to pain. will optimize pain if remains elevated will consider adjusting medications 4. DM- cont home regimen. ISS and BGM 5. CAD s/p CABG- sees product distribution specialist 2x/year. stable. will hold plavix for pending surgery 6. DVT ppx- Hep sq 7. PT assessment post-op to evaluate if needs HUNG when medically optimized
[2018-03-16] MEDS ORDERED: CYCLOBENZAPRINE HCL 10 MG TABLET (FP) PO SCH (14:00)
[2018-03-16] MEDS: morphine SULFATE 4 MG/ML VIAL IVPUSH PRN (16:19)
[2018-03-16] MEDS ORDERED: METOCLOPRAMIDE HCL INJECTION 10 MG/2 ML VIAL IVPUSH ONE (17:15)
[2018-03-16] MEDS: LIDOCAINE 5% TOPICAL PATCH TP SCH (17:20)
[2018-03-16] MEDS: CYCLOBENZAPRINE HCL 10 MG TABLET (FP) PO PRN (17:23)
--- NOTE | 2018-03-16 18:58 | PN ---
Physical Exam: SUBJECTIVE: Patient seen and examined at bedside. He still c/o back pain but improved after treatment received at the ED. OBJECTIVE: Vital Signs Period Temp Pulse Resp BP Sys/Martinez Pulse Ox Last 24 Hr 97.5 F-98.9 F 66-87 16-20 128-169/59-89 95-98 GENERAL: Awake, alert, and fully oriented, in no acute distress. HEAD: Normal with no signs of trauma. EYES: PERRLA, EOMI, sclera anicteric, conjunctiva clear. EARS, NOSE, THROAT: oropharynx clear without exudates. Moist mucous membranes. NECK: Normal range of motion, supple without lymphadenopathy, JVD, or masses. LUNGS: Breath sounds equal, clear to auscultation bilaterally. HEART: Regular rate and rhythm, normal S1 and S2 without murmur, rub or gallop. ABDOMEN: Soft, nontender, not distended, normoactive bowel sounds, no guarding, no rebound, no masses. No hepatomegaly or splenomegaly. MUSCULOSKELETAL: Tenderness to palpation over the paraspinal areas in the lumbar and sacral spine. no bony tenderness LOWER EXTREMITIES: 2+ pulses, warm, well-perfused. No calf tenderness. No peripheral edema. NEUROLOGICAL: Cranial nerves II-X intact. Motor 5/5 in LLE, 4/5 RLE. 5/5 b/l upper extremities. sensation intact. PSYCHIATRIC: Cooperative. Good eye contact. Appropriate mood and affect. SKIN: Warm, dry, normal turgor, no rashes or lesions noted, normal capillary refill. Laboratory Results - last 24 hr 03/16/18 03/16/18 03/16/18 02:46 02:46 02:46 WBC 8.2 RBC 4.87 Hgb 14.2 Hct 41.8 MCV 86.0 MCH 29.2 MCHC 34.0 RDW 15.6 D Plt Count 273 D MPV 7.8 PT with INR 11.90 INR 1.05 PTT (Actin FS) 29.9 Sodium 136 Potassium 4.5 Chloride 100 Carbon Dioxide 29 Anion Gap 7 L BUN 21 H Creatinine 0.8 Creat Clearance w eGFR > 60 POC Glucometer Random Glucose 223 H Calcium 9.1 Total Bilirubin 0.5 AST 23 ALT 36 Alkaline Phosphatase 121 H Total Protein 7.2 Albumin 3.7 09/20/18 09/20/18 09/20/18 08:00 08:00 08:00 WBC 8.1 RBC 4.88 Hgb 14.3 Hct 42.0 MCV 85.9 MCH 29.4 MCHC 34.2 RDW 15.5 Plt Count 240 MPV 7.8 PT with INR 11.60 INR 1.03 PTT (Actin FS) Sodium 136 Potassium 4.7 Chloride 102 Carbon Dioxide 26 Anion Gap 8 BUN 20 H Creatinine 0.7 Creat Clearance w eGFR > 60 POC Glucometer Random Glucose 273 H Calcium 9.7 Total Bilirubin AST ALT Alkaline Phosphatase Total Protein Albumin 03/16/18 03/16/18 11:35 16:22 WBC RBC Hgb Hct MCV MCH MCHC RDW Plt Count MPV PT with INR INR PTT (Actin FS) Sodium Potassium Chloride Carbon Dioxide Anion Gap BUN Creatinine Creat Clearance w eGFR POC Glucometer 315 209 Random Glucose Calcium Total Bilirubin AST ALT Alkaline Phosphatase Total Protein Albumin Active Medications Generic Name Dose Route Start Last Admin Trade Name Freq PRN Reason Stop Dose Admin Allopurinol 600 mg 03/16/18 10:00 03/16/18 10:00 Zyloprim - PO 600 mg DAILY SYLVIA Administration Aspirin 81 mg 03/17/18 10:00 Ecotrin - PO DAILY [facility] Atorvastatin Calcium 20 mg 03/16/18 22:00 Lipitor - PO HS [facility] Cyclobenzaprine HCl 10 mg 03/16/18 10:28 03/16/18 17:23 Flexeril - PO 10 mg TID PRN Administration BACK PAIN Docusate Sodium 400 mg 03/17/18 10:00 Colace - PO DAILY [facility] Duloxetine HCl 60 mg 03/16/18 10:00 03/16/18 10:00 Cymbalta - PO 60 mg DAILY SYLVIA Administration Fentanyl 50 patch 03/18/18 10:00 Duragesic 50mcg Patch - TD Q3D [facility] Heparin Sodium (Porcine) 5,000 unit 03/16/18 07:30 03/16/18 14:48 Heparin - SQ 5,000 unit TID SYLVIA Administration Insulin Aspart 1 vial 03/16/18 11:00 03/16/18 17:19 Novolog Vial Sliding Scale - SQ 4 units ACHS SYLVIA Administration Protocol Insulin Detemir 30 units 03/16/18 22:00 Levemir Vial SQ HS SYLVIA Lactobacillus Acidophilus 1 tab 03/16/18 10:00 03/16/18 10:00 Bacid - PO 1 tab DAILY SYLVIA Administration Lidocaine 1 patch 03/16/18 16:45 03/16/18 17:20 Lidoderm Patch - TP 1 patch DAILY SYLVIA Administration Losartan Potassium 100 mg 03/17/18 10:00 Cozaar - PO DAILY [facility] Metoprolol Tartrate 25 mg 03/16/18 10:00 03/16/18 10:00 Lopressor - PO 25 mg DAILY SYLVIA Administration Miscellaneous 1 each 03/16/18 22:00 Lidoderm Patch Removal MC DAILY@2200 SYLVIA Morphine Sulfate 4 mg 03/16/18 06:43 03/16/18 16:19 Morphine Sulfate IVPUSH 4 mg Q4H PRN Administration PAIN LEVEL 6-10 Oxcarbazepine 600 mg 03/16/18 22:00 Trileptal - PO BID SY[facility]IA Polyethylene Glycol 17 gm 03/16/18 10:00 03/16/18 10:00 Miralax (For Daily Use) - PO 17 grams DAILY SYLVIA Administration ASSESSMENT/PLAN: The patient is a 62 yo m w/ PMH chronic low back pain, HLD, DM who comes into the ED for worsening low back pain. #L2-L3 and L3-L4 severe spinal stenosis: chronic, worsening low back pain -pain likely due to radiculopathy from spinal compression -Pain controlled with Morphine, Flexeril and Lidocaine patch -Continue home bowel regimen with Colace 100mg x4 daily as last BM was 3 days ago, and pt is on opiates. -Add Miralax daily PRN. If no BM, will give suppository. -Dr. Rodriguez consulted. #DM -holding home hypoglycemics -BGM, ISS ACHS #FEN -not on any standing fluids -lytes wnl -diabetic diet #Prophylaxis -heparin SQ 5k units TID #Disposition -admit for observation. Visit type - Emergency Visit Emergency Visit: Yes ED Registration Date: 03/16/18 Care time: The patient presented to the Emergency Department on the above date and was hospitalized for further evaluation of their emergent condition. - New Patient This patient is new to me today: Yes Date on this admission: 03/16/18 - Critical Care Critical Care patient: No
[2018-03-16] MEDS ORDERED: GABAPENTIN 300 MG CAPSULE (FP) PO SCH (22:00)
[2018-03-16] MEDS: LIDOCAINE PATCH REMOVAL MC SCH (22:40)
[2018-03-16] MEDS: OXcarbazepine 300 MG TABLET (UD) PO SCH (22:40)
[2018-03-16] MEDS: INSULIN (LEVEMIR) 100 UNITS/ML UNITS SQ SCH (22:41)
[2018-03-16] MEDS: ATORVASTATIN CA 20 MG TABLET (FP) PO SCH (22:41)
[2018-03-17] MEDS: morphine SULFATE 4 MG/ML VIAL IVPUSH PRN ×3 (05:41→16:44)
[2018-03-17] MEDS: HEPARIN NA (PORCINE) 5,000 UNITS/ML 1ML VIAL SQ SCH ×3 (06:27→22:16)
[2018-03-17] MEDS: CYCLOBENZAPRINE HCL 10 MG TABLET (FP) PO PRN ×2 (06:28→13:20)
[2018-03-17] MEDS: INSULIN SLIDING SCALE (NOVOLOG) 1 VIAL SQ SCH ×4 (06:28→22:17)
[2018-03-17] MEDS ORDERED: PT OWN MED DRAWER 7, Y5N ONE ×2 (06:45→23:04)
[2018-03-17 07:28] LABS: HEMOGLOBIN 13.1 GM/dL (11.7-16.9); MCH 28.8 pg (25.7-33.7); MCHC 33.7 g/dl (32.0-35.9); MEAN CELL VOLUME 85.5 fl (80-96); MEAN PLT VOLUME 7.9 fl (7.5-11.1); PLATELET COUNT 210 K/MM3 (134-434); RBC 4.56 M/mm3 (4.00-5.60); RDW 15.9 % (11.9-15.9); WHITE BLOOD COUNT 7.4 K/mm3 (4.0-10.0)
[2018-03-17 07:48] LABS: ANION GAP 8 MMOL/L (8-16); BLOOD UREA NITROGEN 24 mg/dL (7-18); CALCIUM 9.3 mg/dL (8.5-10.1); CHLORIDE 101 mmol/L (98-107); CO2 29 mmol/L (21-32); CREATININE 0.6 mg/dL (0.55-1.3); GLUCOSE,RANDOM 165 mg/dL (74-106); POTASSIUM 4.9 mmol/L (3.5-5.1); SODIUM 138 mmol/L (136-145)
[2018-03-17] MEDS: LACTOBACILLUS ACIDOPHILUS 1 TABLET PO SCH (09:26)
[2018-03-17] MEDS: DOCUSATE SODIUM 100 MG CAPSULE (FP) PO SCH (09:27)
[2018-03-17] MEDS: ASPIRIN COATED 81 MG TABLET.EC PO SCH (09:28)
[2018-03-17] MEDS: LOSARTAN POTASSIUM 50 MG TABLET (FP) PO SCH (09:28)
[2018-03-17] MEDS: ALLOPURINOL 300 MG TABLET (FP) PO SCH (09:28)
[2018-03-17] MEDS: METOPROLOL TARTRATE 25 MG TABLET (FP) PO SCH (09:28)
[2018-03-17] MEDS: DULoxetine HCL 30 MG CAPSULE.DR (FP) PO SCH (09:29)
[2018-03-17] MEDS: POLYETHYLENE GLYCOL 3350 119 GM BTL PO SCH (09:29)
[2018-03-17] MEDS: LIDOCAINE 5% TOPICAL PATCH TP SCH (09:29)
[2018-03-17] MEDS: OXcarbazepine 300 MG TABLET (UD) PO SCH ×2 (09:47→22:16)
[2018-03-17] MEDS ORDERED: TAMSULOSIN HCL 0.4 MG CAP.ER.24H (FP) PO SCH (10:00)
[2018-03-17] MEDS: GLYCERIN 1 RECTAL SUPPOSITORY, ADULT RC PRN (11:11)
--- NOTE | 2018-03-17 12:00 | PN ---
Progress Note (short form) - Note Progress Note: Patient known to my practise PROBLEMS L1 to S1 Spinal Stenosis Obesity BM1 38 Gout with uric acid kidney stones on Allopurinol Phlebitic limbs Admitted due to low back pain and progressive hip flexor (left) weakness MRI from [facility] evaluated --- 3 levels of severe lumbar stenosis PLAN Requires multilevel decompression with instrumented stabilization L1 to S1 Medical clearance Discussed discharge home and readmit Patient lives alone and is bedridden requires help Will operate MILENA ? Tue next ? Tuesday a
--- NOTE | 2018-03-17 13:10 | PN ---
Teaching Attending Note Name of Resident: Isabella Velazquez ATTENDING PHYSICIAN STATEMENT I saw and evaluated the patient. I reviewed the resident's note and discussed the case with the resident. I agree with the resident's findings and plan as documented. SUBJECTIVE: pain has improved with pain medication. denies CP, SOB, fever, chills, N/V. no BM OBJECTIVE: Last Vital Signs Temp Pulse Resp BP Pulse Ox 98 F 67 18 144/74 97 03/17/18 09:25 03/17/18 09:25 03/17/18 09:03/17/18 09:03/16/18 23:01 General NAD ASSESSMENT AND PLAN: 62yo M with PMH Severe stenosis L2-L3 and L3-L4, HTN, DM and CAD S/p CABG presented with intractable back pain 1. Intractable back pain due to severe spinal stenosis with developing radiculopathy-pain is now controlled. evaluated by ortho and scheduled for surgery on 03/27. due to pt pain and inability to ambulate without assistance would benefit from SNF placement until surgery can be done. will transition morphine to po. cont rest of recommendations per surgery 2. Constipation- on chronic opiates. will give suppository 3. HTN- elevated but likely due to pain. now improved. cont 4. DM- cont home regimen. ISS and BGM 5. 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 stable.will re-start plavix. will need to be held prior to surgery 6. DVT ppx- Hep sq 7. pt is unstable for d/c home due to needs for assistance and living alone. spoke with head of who agrees pt would benefit from SNF placement due to needs. [facility] to be sent out today
--- NOTE | 2018-03-17 17:52 | PN ---
Physical Exam: SUBJECTIVE: Patient seen and examined at bedside this morning. No acute events overnight. Patient has been complaining of back pain and received morphine 2mg and Flexeril overnight. OBJECTIVE: Vital Signs Period Temp Pulse Resp BP Sys/Martinez Pulse Ox Last 24 Hr 97.4 F-98.0 F 66-82 18-20 115-152/54-92 96-97 GENERAL: Awake, alert, and fully oriented, in no acute distress. HEAD: Normal with no signs of trauma. EYES: PERRLA, EOMI, sclera anicteric, conjunctiva clear. EARS, NOSE, THROAT: oropharynx clear without exudates. Moist mucous membranes. NECK: Normal range of motion, supple without lymphadenopathy, JVD, or masses. LUNGS: Breath sounds equal, clear to auscultation bilaterally. HEART: Regular rate and rhythm, normal S1 and S2 without murmur, rub or gallop. ABDOMEN: Soft, nontender, not distended, normoactive bowel sounds, no guarding, no rebound, no masses. No hepatomegaly or splenomegaly. MUSCULOSKELETAL: Tenderness to palpation over the paraspinal areas in the lumbar and sacral spine. no bony tenderness LOWER EXTREMITIES: 2+ pulses, warm, well-perfused. No calf tenderness. No peripheral edema. NEUROLOGICAL: Cranial nerves II-X intact. Motor 5/5 in LLE, 4/5 RLE. 5/5 b/l upper extremities. sensation intact. PSYCHIATRIC: Cooperative. Good eye contact. Appropriate mood and affect. SKIN: Warm, dry, normal turgor, no rashes or lesions noted, normal capillary refill. Laboratory Results - last 24 hr 03/16/18 03/17/18 03/17/18 22:37 06:00 06:00 WBC 7.4 RBC 4.56 Hgb 13.1 Hct 39.0 MCV 85.5 MCH 28.8 MCHC 33.7 RDW 15.9 Plt Count 210 MPV 7.9 Sodium 138 Potassium 4.9 Chloride 101 Carbon Dioxide 29 Anion Gap 8 BUN 24 H Creatinine 0.6 Creat Clearance w eGFR > 60 POC Glucometer 185 Random Glucose 165 H Calcium 9.3 03/17/18 03/17/18 03/17/18 06:26 10:51 16:48 WBC RBC Hgb Hct MCV MCH MCHC RDW Plt Count MPV Sodium Potassium Chloride Carbon Dioxide Anion Gap BUN Creatinine Creat Clearance w eGFR POC Glucometer 151 188 197 Random Glucose Calcium Active Medications Generic Name Dose Route Start Last Admin Trade Name Freq PRN Reason Stop Dose Admin Allopurinol 600 mg 03/16/18 10:00 03/17/18 09:28 Zyloprim - PO 600 mg DAILY SYLVIA Administration Aspirin 81 mg 03/17/18 10:00 03/17/18 09:28 Ecotrin - PO 81 mg DAILY SYLVIA Administration Atorvastatin Calcium 20 mg 03/16/18 22:00 03/16/18 22:41 Lipitor - PO 20 mg HS SYLVIA Administration Cyclobenzaprine HCl 10 mg 03/16/18 10:28 03/17/18 13:20 Flexeril - PO 10 mg TID PRN Administration BACK PAIN Docusate Sodium 400 mg 03/17/18 10:00 03/17/18 09:27 Colace - PO 400 mg DAILY SYLVIA Administration Duloxetine HCl 60 mg 03/16/18 10:00 03/17/18 09:29 Cymbalta - PO 60 mg DAILY SYLVIA Administration Fentanyl 50 patch 03/18/18 10:00 Duragesic 50mcg Patch - TD Q3D SYLVIA Glycerin 1 each 03/17/18 10:32 03/17/18 11:11 Glycerin Suppository Adult - RC 1 each DAILY PRN Administration CONSTIPATION Heparin Sodium (Porcine) 5,000 unit 03/16/18 07:30 03/17/18 13:21 Heparin - SQ 5,000 unit TID SYLVIA Administration Insulin Aspart 1 vial 03/16/18 11:00 03/17/18 16:52 Novolog Vial Sliding Scale - SQ 2 units ACHS SYLVIA Administration Protocol Insulin Detemir 30 units 03/16/18 22:00 03/16/18 22:41 Levemir Vial SQ 30 unit HS [facility]IA Administration Lactobacillus Acidophilus 1 tab 03/16/18 10:00 03/17/18 09:26 Bacid - PO 1 tab DAILY [facility]IA Administration Lidocaine 1 patch 03/16/18 16:45 03/17/18 09:29 Lidoderm Patch - TP 1 patch DAILY [facility]IA Administration Losartan Potassium 100 mg 03/17/18 10:00 03/17/18 09:28 Cozaar - PO 100 mg DAILY SYLVIA Administration Metoprolol Tartrate 25 mg 03/16/18 10:00 03/17/18 09:28 Lopressor - PO 25 mg DAILY SYLVIA Administration Miscellaneous 1 each 03/16/18 22:00 03/16/18 22:40 Lidoderm Patch Removal MC 1 each DAILY@2200 SYLVIA Administration Morphine Sulfate 4 mg 03/16/18 06:43 03/17/18 16:44 Morphine Sulfate IVPUSH 4 mg Q4H PRN Administration PAIN LEVEL 6-10 Oxcarbazepine 600 mg 03/16/18 22:00 03/17/18 09:47 Trileptal - PO 600 mg BID SY[facility]IA Administration Polyethylene Glycol 17 gm 03/16/18 10:00 03/17/18 09:29 Miralax (For Daily Use) - PO 17 grams DAILY [facility]LVIA Administration ASSESSMENT/PLAN: The patient is a 62 yo m w/ PMH chronic low back pain, HLD, DM who comes into the ED for worsening low back pain. #L2-L3 and L3-L4 severe spinal stenosis: chronic, worsening low back pain -pain likely due to radiculopathy from spinal compression -Pain controlled with Morphine, Flexeril and Lidocaine patch -Continue home bowel regimen with Colace 100mg x4 daily as last BM was 3 days ago, and pt is on opiates. -Add Miralax daily PRN. Glycerine Suppository given. -Dr. Rodriguez consulted. Recommendations appreciated: -Scheduled for L1-S1 spinal decompression on Tuesday, Mar.27. -Will discharge to SNF while awaiting surgery. #DM -holding home hypoglycemics -BGM, ISS ACHS #FEN -not on any standing fluids -lytes wnl -diabetic diet #Prophylaxis -heparin SQ 5k units TID #Disposition -admit for observation. -ASSESSMENT/PLAN: The patient is a 62 yo m w/ PMH chronic low back pain, HLD, DM who comes into the ED for worsening low back pain. #L2-L3 and L3-L4 severe spinal stenosis: chronic, worsening low back pain -pain likely due to radiculopathy from spinal compression -Pain controlled with Morphine, Flexeril and Lidocaine patch -Continue home bowel regimen with Colace 100mg x4 daily as last BM was 3 days ago, and pt is on opiates. -Add Miralax daily PRN. If no BM, will give suppository. -Dr. Rodriguez consulted. #DM -holding home hypoglycemics -BGM, ISS ACHS #FEN -not on any standing fluids -lytes wnl -diabetic diet #Prophylaxis -heparin SQ 5k units TID #Disposition -admit for observation. -will discharge to SNF once approved. Visit type - Emergency Visit Emergency Visit: Yes ED Registration Date: 03/16/18 Care time: The patient presented to the Emergency Department on the above date and was hospitalized for further evaluation of their emergent condition. - New Patient This patient is new to me today: Yes Date on this admission: 03/17/18 - Critical Care Critical Care patient: No
[2018-03-17] MEDS: ATORVASTATIN CA 20 MG TABLET (FP) PO SCH (22:15)
[2018-03-17] MEDS: INSULIN (LEVEMIR) 100 UNITS/ML UNITS SQ SCH (22:18)
[2018-03-17] MEDS: LIDOCAINE PATCH REMOVAL MC SCH (22:21)
[2018-03-18] MEDS: morphine SULFATE 4 MG/ML VIAL IVPUSH PRN ×2 (01:46→21:44)
[2018-03-18] MEDS: ACETAMINOPHEN 325 MG TABLET (FP) PO PRN (03:30)
[2018-03-18] MEDS: HEPARIN NA (PORCINE) 5,000 UNITS/ML 1ML VIAL SQ SCH ×3 (05:10→21:56)
[2018-03-18] MEDS: INSULIN SLIDING SCALE (NOVOLOG) 1 VIAL SQ SCH ×4 (06:38→21:46)
[2018-03-18] MEDS: DOCUSATE SODIUM 100 MG CAPSULE (FP) PO SCH (09:30)
[2018-03-18] MEDS: LACTOBACILLUS ACIDOPHILUS 1 TABLET PO SCH (09:30)
[2018-03-18] MEDS: DULoxetine HCL 30 MG CAPSULE.DR (FP) PO SCH (09:30)
[2018-03-18] MEDS: ALLOPURINOL 300 MG TABLET (FP) PO SCH (09:30)
[2018-03-18] MEDS: ASPIRIN COATED 81 MG TABLET.EC PO SCH (09:30)
[2018-03-18] MEDS: LOSARTAN POTASSIUM 50 MG TABLET (FP) PO SCH (09:30)
[2018-03-18] MEDS: METOPROLOL TARTRATE 25 MG TABLET (FP) PO SCH (09:31)
[2018-03-18] MEDS: POLYETHYLENE GLYCOL 3350 119 GM BTL PO SCH (09:31)
[2018-03-18] MEDS: LIDOCAINE 5% TOPICAL PATCH TP SCH (09:31)
[2018-03-18] MEDS: OXcarbazepine 300 MG TABLET (UD) PO SCH ×2 (09:32→21:46)
[2018-03-18] MEDS: GLYCERIN 1 RECTAL SUPPOSITORY, ADULT RC PRN (09:43)
[2018-03-18] MEDS ORDERED: FENTANYL PATCH WASTE TD PRN (09:53)
[2018-03-18] MEDS ORDERED: fentaNYL 50mcg/hr PATCH.TD72 TD SCH ×2 (10:00)
[2018-03-18] MEDS ORDERED: INSULIN (NOVOLOG) ASPART 100 UNITS/ML 10ML VIAL ONE (11:02)
--- NOTE | 2018-03-18 11:35 | PN ---
Progress Note (short form) - Note Progress Note: states pain is controlled with pain medication. had small BM yesterday. denies CP, SOB, fever, chills, N/v/C/D Current Medications Generic Name Dose Route Start Last Admin Trade Name Freq PRN Reason Stop Dose Admin Allopurinol 600 mg 03/16/18 10:00 03/18/18 09:30 Zyloprim - PO 600 mg DAILY SYLVIA Administration Aspirin 81 mg 03/17/18 10:00 03/18/18 09:30 Ecotrin - PO 81 mg DAILY SYLVIA Administration Atorvastatin Calcium 20 mg 03/16/18 22:00 03/17/18 22:15 Lipitor - PO 20 mg HS SYLVIA Administration Cyclobenzaprine HCl 10 mg 03/16/18 10:28 03/17/18 13:20 Flexeril - PO 10 mg TID PRN Administration BACK PAIN Docusate Sodium 400 mg 03/17/18 10:00 03/18/18 09:30 Colace - PO 400 mg DAILY SYLVIA Administration Duloxetine HCl 60 mg 03/16/18 10:00 03/18/18 09:30 Cymbalta - PO 60 mg DAILY SYLVIA Administration Fentanyl 1 patch 03/18/18 10:00 03/18/18 09:51 Duragesic 50mcg Patch - TD 1 patch Q3D SYLVIA Administration Glycerin 1 each 03/17/18 10:32 03/18/18 09:43 Glycerin Suppository Adult - RC 1 each DAILY PRN Administration CONSTIPATION Heparin Sodium (Porcine) 5,000 unit 03/16/18 07:30 03/18/18 05:10 Heparin - SQ 5,000 unit TID SYLVIA Administration Insulin Aspart 1 vial 03/16/18 11:00 03/18/18 11:03 Novolog Vial Sliding Scale - SQ 2 units ACHS SYLVIA Administration Protocol Insulin Detemir 30 units 03/16/18 22:00 03/17/18 22:18 Levemir Vial SQ 30 unit HS SYLVIA Administration Lactobacillus Acidophilus 1 tab 03/16/18 10:00 03/18/18 09:30 Bacid - PO 1 tab DAILY SYLVIA Administration Lidocaine 1 patch 03/16/18 16:45 03/18/18 09:31 Lidoderm Patch - TP 1 patch DAILY SYLVIA Administration Losartan Potassium 100 mg 03/17/18 10:00 03/18/18 09:30 Cozaar - PO 100 mg DAILY SYLVIA Administration Metoprolol Tartrate 25 mg 03/16/18 10:00 03/18/18 09:31 Lopressor - PO 25 mg DAILY SYLVIA Administration Miscellaneous 1 each 03/16/18 22:00 03/17/18 22:21 Lidoderm Patch Removal MC 1 each DAILY@2200 SYLVIA Administration Miscellaneous 1 each 03/18/18 09:53 03/18/18 10:30 Duragesic Patch Waste TD 1 each PRN PRN Administration FENTANYL WASTE Morphine Sulfate 4 mg 03/16/18 06:43 03/18/18 01:46 Morphine Sulfate IVPUSH 4 mg Q4H PRN Administration PAIN LEVEL 6-10 Oxcarbazepine 600 mg 03/16/18 22:00 03/18/18 09:32 Trileptal - PO 600 mg BID SYLVIA Administration Polyethylene Glycol 17 gm 03/16/18 10:00 03/18/18 09:31 Miralax (For Daily Use) - PO 17 grams DAILY SYLVIA Administration Last Vital Signs Temp Pulse Resp BP Pulse Ox 99.2 F 81 20 122/66 96 03/18/18 08:39 03/18/18 08:39 03/18/18 08:39 03/18/18 08:39 03/18/18 06:00 General NAD ASSESSMENT AND PLAN: 62yo M with PMH Severe stenosis L2-L3 and L3-L4, HTN, DM and CAD S/p CABG presented with intractable back pain 1. Intractable back pain due to severe spinal stenosis with developing radiculopathy-pain is now controlled. evaluated by ortho and scheduled for surgery on 03/27. due to pt pain and inability to ambulate without assistance would benefit from SNF placement until surgery can be done. encouraged pt to request po pain medications if mild to mod pain and reserve morphine for severe pain in order to transition well off iv medication. cont muscle relaxers 2. Constipation- on chronic opiates. small BM. cont stool softeners 3. HTN- elevated but likely due to pain. now improved. cont 4. DM- cont home regimen. ISS and BGM 5. 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 on plavix. will need to be held prior to surgery 6. DVT ppx- Hep sq 7.Will need SNF placement until surgery can occur which is anticipated for 03/27. [facility] sent out awaiting facility placement Visit type - Emergency Visit Emergency Visit: Yes ED Registration Date: 03/16/18 Care time: The patient presented to the Emergency Department on the above date and was hospitalized for further evaluation of their emergent condition. - New Patient This patient is new to me today: No - Critical Care Critical Care patient: No - Discharge Referral [facility]erred to [facility] Med [facility].: No
[2018-03-18] MEDS: oxyCODONE HCL 5 MG TABLET PO PRN (13:31)
[2018-03-18] MEDS: CLOPIDOGREL BISULFATE 75 MG TABLET (FP) PO SCH (14:48)
[2018-03-18] MEDS ORDERED: PT OWN MED DRAWER 7, Y5N ONE (20:38)
[2018-03-18] MEDS: ATORVASTATIN CA 20 MG TABLET (FP) PO SCH (21:45)
[2018-03-18] MEDS: LIDOCAINE PATCH REMOVAL MC SCH (21:45)
[2018-03-18] MEDS: INSULIN (LEVEMIR) 100 UNITS/ML UNITS SQ SCH (21:46)
[2018-03-19] MEDS: ACETAMINOPHEN 325 MG TABLET (FP) PO PRN ×5 (00:48→23:39)
[2018-03-19] MEDS: oxyCODONE HCL 5 MG TABLET PO PRN ×5 (00:49→23:39)
[2018-03-19] MEDS: HEPARIN NA (PORCINE) 5,000 UNITS/ML 1ML VIAL SQ SCH ×3 (07:00→22:00)
[2018-03-19] MEDS: INSULIN SLIDING SCALE (NOVOLOG) 1 VIAL SQ SCH ×4 (07:05→23:33)
[2018-03-19] MEDS ORDERED: MORPHINE SULFATE 2 MG/ML VIAL IVPUSH PRN (07:58)
[2018-03-19] MEDS ORDERED: PT OWN MED DRAWER 7, Y5N ONE (08:54)
--- NOTE | 2018-03-19 09:49 | PN ---
Teaching Attending Note Name of Resident: Isabella Velazquez ATTENDING PHYSICIAN STATEMENT I saw and evaluated the patient. I reviewed the resident's note and discussed the case with the resident. I agree with the resident's findings and plan as documented. SUBJECTIVE:states pain is well controlled. denies Cp, SOB, fever, chills, N/v/C/ D, +BM yesterday OBJECTIVE: Last Vital Signs Temp Pulse Resp BP Pulse Ox 98.3 F 72 20 136/71 97 03/19/18 09:00 03/19/18 09:00 03/19/18 09:00 03/19/18 09:00 03/19/18 06:00 General NAD ASSESSMENT AND PLAN: 62yo M with PMH Severe stenosis L2-L3 and L3-L4, HTN, DM and CAD S/p CABG presented with intractable back pain 1. Intractable back pain due to severe spinal stenosis with developing radiculopathy-pain is now controlled. evaluated by ortho and scheduled for surgery on 03/27. due to pt pain and inability to ambulate without assistance would benefit from SNF placement until surgery can be done. pain control. cont muscle relaxers 2. Constipation- on chronic opiates. cont stool softeners 3. HTN- elevated but likely due to pain. now improved. cont 4. DM- cont home regimen. ISS and BGM 5. 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 on plavix. will need to be held prior to surgery 6. DVT ppx- Hep sq 7.Will need SNF placement until surgery can occur which is anticipated for 03/27. [facility] sent out awaiting facility placement
--- NOTE | 2018-03-19 10:27 | PN ---
Physical Exam: SUBJECTIVE: Patient seen and examined at bedside this morning. No acute events overnight. Patient still c/o back pain relieved by tylenol, oxycodone, and flexeril. Last BM was yesterday after suppository was given. OBJECTIVE: Vital Signs Period Temp Pulse Resp BP Sys/Martinez Pulse Ox Last 24 Hr 97.5 F-98.3 F 60-72 20-20 136-179/71-85 94-97 GENERAL: Awake, alert, and fully oriented, in no acute distress. HEAD: Normal with no signs of trauma. EYES: PERRLA, EOMI, sclera anicteric, conjunctiva clear. EARS, NOSE, THROAT: oropharynx clear without exudates. Moist mucous membranes. NECK: Normal range of motion, supple without lymphadenopathy, JVD, or masses. LUNGS: Breath sounds equal, clear to auscultation bilaterally. HEART: Regular rate and rhythm, normal S1 and S2 without murmur, rub or gallop. ABDOMEN: Soft, nontender, not distended, normoactive bowel sounds. MUSCULOSKELETAL: Tenderness to palpation over the paraspinal areas in the lumbar and sacral spine. no bony tenderness LOWER EXTREMITIES: 2+ pulses, warm, well-perfused. No calf tenderness. No peripheral edema. NEUROLOGICAL: Cranial nerves II-X intact. Motor 5/5 in LLE, 4/5 RLE. 5/5 b/l upper extremities. sensation intact. PSYCHIATRIC: Cooperative. Good eye contact. Appropriate mood and affect. SKIN: Warm, dry, normal turgor, no rashes or lesions noted, normal capillary refill. Laboratory Results - last 24 hr 03/18/18 03/18/18 03/18/18 11:00 16:21 21:42 POC Glucometer 151 171 203 03/19/18 06:56 POC Glucometer 120 Active Medications Generic Name Dose Route Start Last Admin Trade Name Freq PRN Reason Stop Dose Admin Acetaminophen 650 mg 03/18/18 13:26 03/19/18 06:59 Tylenol - PO 03/21/18 13:25 650 mg Q4H PRN Administration PAIN SCALE 4-6 Allopurinol 600 mg 03/16/18 10:00 03/18/18 09:30 Zyloprim - PO 600 mg DAILY SYLVIA Administration Aspirin 81 mg 03/17/18 10:00 03/18/18 09:30 Ecotrin - PO 81 mg DAILY SYLVIA Administration Atorvastatin Calcium 20 mg 03/16/18 22:00 03/18/18 21:45 Lipitor - PO 20 mg HS SYLVIA Administration Clopidogrel Bisulfate 75 mg 03/18/18 11:45 03/18/18 14:48 Plavix - PO Not Given DAILY SYLVIA Cyclobenzaprine HCl 10 mg 03/16/18 10:28 03/17/18 13:20 Flexeril - PO 10 mg TID PRN Administration BACK PAIN Docusate Sodium 400 mg 03/17/18 10:00 03/18/18 09:30 Colace - PO 400 mg DAILY SYLVIA Administration Duloxetine HCl 60 mg 03/16/18 10:00 03/18/18 09:30 Cymbalta - PO 60 mg DAILY SYLVIA Administration Fentanyl 1 patch 03/18/18 10:00 03/18/18 09:51 Duragesic 50mcg Patch - TD 1 patch Q3D SYLVIA Administration Glycerin 1 each 03/17/18 10:32 03/18/18 09:43 Glycerin Suppository Adult - RC 1 each DAILY PRN Administration CONSTIPATION Heparin Sodium (Porcine) 5,000 unit 03/16/18 07:30 03/19/18 07:00 Heparin - SQ 5,000 unit TID SYLVIA Administration Insulin Aspart 1 vial 03/16/18 11:00 03/19/18 07:05 Novolog Vial Sliding Scale - SQ Not Given ACHS [facility] Protocol Insulin Detemir 30 units 03/16/18 22:00 03/18/18 21:46 Levemir Vial SQ 30 unit HS SYLVIA Administration Lactobacillus Acidophilus 1 tab 03/16/18 10:00 03/18/18 09:30 Bacid - PO 1 tab DAILY SYLVIA Administration Lidocaine 1 patch 03/16/18 16:45 03/18/18 09:31 Lidoderm Patch - TP 1 patch DAILY SYLVIA Administration Losartan Potassium 100 mg 03/17/18 10:00 03/18/18 09:30 Cozaar - PO 100 mg DAILY SYLVIA Administration Metoprolol Tartrate 25 mg 03/16/18 10:00 03/18/18 09:31 Lopressor - PO 25 mg DAILY SYLVIA Administration Miscellaneous 1 each 03/16/18 22:00 03/18/18 21:45 Lidoderm Patch Removal MC 1 each DAILY@2200 SYLVIA Administration Miscellaneous 1 each 03/18/18 09:53 03/18/18 10:30 Duragesic Patch Waste TD 1 each PRN PRN Administration FENTANYL WASTE Morphine Sulfate 2 mg 03/19/18 07:58 Morphine Sulfate IVPUSH Q4H PRN PAIN LEVEL 7 - 10 Oxcarbazepine 600 mg 03/16/18 22:00 03/18/18 21:46 Trileptal - PO 600 mg BID SYLVIA Administration Oxycodone HCl 10 mg 03/18/18 13:26 03/19/18 06:59 Roxicodone - PO 10 mg Q4H PRN Administration PAIN SCALE 4-6 Polyethylene Glycol 17 gm 03/16/18 10:00 03/18/18 09:31 Miralax (For Daily Use) - PO 17 grams DAILY SYLVIA Administration ASSESSMENT/PLAN: The patient is a 62 yo m w/ PMH chronic low back pain, HLD, DM who comes into the ED for worsening low back pain. #L1-S1 severe spinal stenosis: 10/10 low back pain with movement, relieved by pain medications -pain likely due to radiculopathy from spinal compression -Pain controlled with Tylenol, Oxycodone, Flexeril and Lidocaine patch -Morphine PRN -Dr. Rodriguez consulted. Recommendations appreciated: -Scheduled for L1-S1 spinal decompression on Tuesday, Mar.27. -Will discharge to SNF while awaiting surgery. #Constipation -Had a bowel movement yesterday. -Patient on opiates for pain control. -Continue home bowel regimen with Colace 100mg x4 daily, and pt is on opiates. -Add Miralax daily PRN. Glycerine Suppository PRN. #DM -holding home hypoglycemics -BGM, ISS ACHS #FEN -not on any standing fluids -lytes wnl -diabetic diet #Prophylaxis -heparin SQ 5000 units TID #Disposition -Patient unable to ambulate without experiencing severe pain. -May benefit SNF while awaiting surgery. Visit type - Emergency Visit Emergency Visit: Yes ED Registration Date: 03/16/18 Care time: The patient presented to the Emergency Department on the above date and was hospitalized for further evaluation of their emergent condition. - New Patient This patient is new to me today: Yes Date on this admission: 03/19/18 - Critical Care Critical Care patient: No
[2018-03-19] MEDS: DULoxetine HCL 30 MG CAPSULE.DR (FP) PO SCH (10:36)
[2018-03-19] MEDS: ASPIRIN COATED 81 MG TABLET.EC PO SCH (10:36)
[2018-03-19] MEDS: LACTOBACILLUS ACIDOPHILUS 1 TABLET PO SCH (10:36)
[2018-03-19] MEDS: LOSARTAN POTASSIUM 50 MG TABLET (FP) PO SCH (10:36)
[2018-03-19] MEDS: LIDOCAINE 5% TOPICAL PATCH TP SCH (10:37)
[2018-03-19] MEDS: DOCUSATE SODIUM 100 MG CAPSULE (FP) PO SCH (10:37)
[2018-03-19] MEDS: METOPROLOL TARTRATE 25 MG TABLET (FP) PO SCH (10:37)
[2018-03-19] MEDS: CLOPIDOGREL BISULFATE 75 MG TABLET (FP) PO SCH (10:37)
[2018-03-19] MEDS: ALLOPURINOL 300 MG TABLET (FP) PO SCH (10:37)
[2018-03-19] MEDS: OXcarbazepine 300 MG TABLET (UD) PO SCH ×2 (10:38→23:33)
[2018-03-19] MEDS: POLYETHYLENE GLYCOL 3350 119 GM BTL PO SCH (16:24)
[2018-03-19] MEDS: LIDOCAINE PATCH REMOVAL MC SCH (23:32)
[2018-03-19] MEDS: INSULIN (LEVEMIR) 100 UNITS/ML UNITS SQ SCH (23:32)
[2018-03-19] MEDS: ATORVASTATIN CA 20 MG TABLET (FP) PO SCH (23:33)
[2018-03-20] MEDS: HEPARIN NA (PORCINE) 5,000 UNITS/ML 1ML VIAL SQ SCH ×2 (05:43→15:35)
[2018-03-20] MEDS: ACETAMINOPHEN 325 MG TABLET (FP) PO PRN ×3 (05:44→16:45)
[2018-03-20] MEDS: oxyCODONE HCL 5 MG TABLET PO PRN ×3 (05:44→16:45)
[2018-03-20] MEDS: INSULIN SLIDING SCALE (NOVOLOG) 1 VIAL SQ SCH ×3 (06:50→16:39)
[2018-03-20] MEDS: CLOPIDOGREL BISULFATE 75 MG TABLET (FP) PO SCH (09:52)
[2018-03-20] MEDS: ALLOPURINOL 300 MG TABLET (FP) PO SCH (09:52)
[2018-03-20] MEDS: LOSARTAN POTASSIUM 50 MG TABLET (FP) PO SCH (09:52)
[2018-03-20] MEDS: METOPROLOL TARTRATE 25 MG TABLET (FP) PO SCH (09:52)
[2018-03-20] MEDS: DOCUSATE SODIUM 100 MG CAPSULE (FP) PO SCH (09:52)
[2018-03-20] MEDS: ASPIRIN COATED 81 MG TABLET.EC PO SCH (09:53)
[2018-03-20] MEDS: DULoxetine HCL 30 MG CAPSULE.DR (FP) PO SCH (09:53)
[2018-03-20] MEDS: LIDOCAINE 5% TOPICAL PATCH TP SCH (09:53)
[2018-03-20] MEDS: LACTOBACILLUS ACIDOPHILUS 1 TABLET PO SCH (09:53)
[2018-03-20] MEDS ORDERED: PT OWN MED DRAWER 7, Y5N ONE (10:56)
[2018-03-20] MEDS: OXcarbazepine 300 MG TABLET (UD) PO SCH (11:10)
[2018-03-20] MEDS: POLYETHYLENE GLYCOL 3350 119 GM BTL PO SCH (11:11)
[2018-03-20 16:54] VITALS: BP 128/78; PULSE 68; TEMP 98.4
--- NOTE | 2018-03-20 17:14 | PN ---
Teaching Attending Note Name of Resident: Isabella Velazquez ATTENDING PHYSICIAN STATEMENT I saw and evaluated the patient. I reviewed the resident's note and discussed the case with the resident. I agree with the resident's findings and plan as documented. SUBJECTIVE:states pain is controlled. more stable on his feet. denies Cp, SOB, fever, chills, N/V/C/D OBJECTIVE: Last Vital Signs Temp Pulse Resp BP Pulse Ox 98.4 F 68 18 128/78 97 03/20/18 16:30 03/20/18 16:30 03/20/18 16:30 03/20/18 16:30 03/20/18 10:00 General NAD ASSESSMENT AND PLAN: 62yo M with PMH Severe stenosis L2-L3 and L3-L4, HTN, DM and CAD S/p CABG presented with intractable back pain 1. Intractable back pain due to severe spinal stenosis with developing radiculopathy-pain is now controlled. evaluated by ortho and scheduled for surgery on 03/27. ambulated >100ft with cane with PT today and does not qualify for HUNG placement. pain control. cont muscle relaxers 2. Constipation- on chronic opiates. cont stool softeners 3. HTN- elevated but likely due to pain. now improved. cont 4. DM- cont home regimen. ISS and BGM 5. CAD s/p CABG- sees data manager 2x/year. on plavix/asa. will need to be held prior to surgery 6. DVT ppx- Hep sq 7.d/c home. will need to f/u with ortho to confirm specifics about returning for surgery. anticipated date 03/27. should discuss about holding asa/plavix prior to surgery DIRECT CASTING OPERATOR checked. received 30 day supple of oxycodone by Dr Kc on 03/15. should have enough until surgery Reference #: [id number]
--- NOTE | 2018-03-20 18:09 | DS ---
Physical Exam: SUBJECTIVE: Patient seen and examined at bedside this morning. Patient had a fall yesterday afternoon and hit his back obtaining abrasions at the right flank area and left buttock. Post-fall protocol ordered. Spinal xray did not show any fracture. Chronic low back pain controlled by PO oxycodone and tylenol. OBJECTIVE: Vital Signs Period Temp Pulse Resp BP Sys/Martinez Pulse Ox Last 24 Hr 97.5 F-98.6 F 56-83 18-20 121-158/58-91 97-97 PHYSICAL EXAM GENERAL: Awake, alert, and fully oriented, in no acute distress. HEAD: Normal with no signs of trauma. EYES: PERRLA, EOMI, sclera anicteric, conjunctiva clear. EARS, NOSE, THROAT: oropharynx clear without exudates. Moist mucous membranes. NECK: Normal range of motion, supple without lymphadenopathy, JVD, or masses. LUNGS: Breath sounds equal, clear to auscultation bilaterally. HEART: Regular rate and rhythm, normal S1 and S2 without murmur, rub or gallop. ABDOMEN: Soft, nontender, not distended, normoactive bowel sounds. MUSCULOSKELETAL: Tenderness to palpation over the paraspinal areas in the lumbar and sacral spine. no bony tenderness LOWER EXTREMITIES: 2+ pulses, warm, well-perfused. No calf tenderness. No peripheral edema. NEUROLOGICAL: Cranial nerves II-X intact. Motor 5/5 in LLE, 4/5 RLE. 5/5 b/l upper extremities. sensation intact. PSYCHIATRIC: Cooperative. Good eye contact. Appropriate mood and affect. SKIN: Warm, dry, normal turgor, no rashes or lesions noted, normal capillary refill. LABS Laboratory Results - last 24 hr 03/19/18 03/20/18 03/20/18 21:04 05:42 11:14 POC Glucometer 218 135 169 03/20/18 16:27 POC Glucometer 138 Imaging Chest Xray a single view the chest reveals clear lungs, mediastinal sutures, clips and a wire. The angles are sharp. The bones and soft tissues are intact. LS spine xray no evidence of acute fracture or dislocation. HOSPITAL COURSE: Date of Admission:03/16/18 Date of Discharge: 03/20/18 Patient is a 62 year old male with past medical history of chronic low back pain , HLD, DM, presented to the ED with worsening low back pain. Pain was controlled by Tylenol, Oxycodone, Flexeril and Lidocaine patch. Patient was seen by Dr. Rodriguez, reviewed MRI and scheduled patient for L1-S2 spinal decompression surgery on Mar 27. Patient also had constipation. Bowel regimen were given. Patient was discharged with instructions to call Dr. Rodriguez's office to follow-up for pre-op instructions. Minutes to complete discharge: 40 Discharge Summary Reason For Visit: INTRACTABLE BACK PAIN Current Active Problems Intractable back pain (Acute) Condition: Fair - Instructions Diet, Activity, Other Instructions: You were admitted because you had been experiencing worsening of your back pain that extends down to your right leg. You were diagnosed to have L1 to S1 spinal stenosis. The orthopedic surgeon (Dr. Alex Rodriguez) scheduled you for a spinal decompression surgery on March 27. Please call Dr. Rodriguez's office at [phone] to confirm the date of the surgery and for further instructions prior to surgery. Continue with the pain medication prescribed to you by Dr Kc, use as directed. Please ensure you are having regular bowel movements while on this medications as it can lead to constipation. If you ever need more, please call Dr. Rodriguez's office. Continue your home medications as prescribed. Discuss with Dr Rodriguez about when/or if you should hold your plavix prior to the surgery. PLease ambulate with cane. Call 911 or go to the ED for any worsening symptoms or any new concerns noted. Referrals: Sheldon Kc MD [Primary Care Provider] - Alex Rodriguez MD [Staff Physician] - Disposition: HOME - Home Medications Comprehensive Discharge Medication List: Ambulatory Orders Allopurinol 600 mg PO DAILY 07/21/17 Clopidogrel Bisulfate [Plavix -] 75 mg PO DAILY 07/21/17 Dapagliflozin Propanediol [Farxiga] 5 mg PO DAILY 07/21/17 Duloxetine HCl [Cymbalta -] 60 mg PO DAILY 07/21/17 Glipizide 5 mg PO DAILY 07/21/17 Insulin Glargine,Hum.rec.anlog [Lantus Solostar] 30 unit SQ HS 07/21/17 Losartan Potassium 100 mg PO DAILY 07/21/17 Metoprolol Tartrate 25 mg PO DAILY 07/21/17 Saxagliptin HCl [Onglyza] 5 mg PO DAILY 07/21/17 Simvastatin 40 mg PO HS 07/21/17 Lactobacillus Acidophilus [Bacid -] 1 tab PO DAILY tab 07/25/17 Silver Sulfadiazine 1% Top Cr [Silvadene -] 1 applic TP DAILY #1 jar 07/25/17 Aspirin [Adult Aspirin] 81 mg PO 03/16/18 Diphenoxylate 2.5/Atropine.025 [Lomotil -] 1 combo PO Q6H PRN 03/16/18 Diphenoxylate HCl/Atropine [Diphenoxylat-Atrop 2.5-0.025/5] 03/16/18 Docusate Sodium [Colace] 400 mg PO 03/16/18 Fentanyl 50 mcg Q3D 03/16/18 Gabapentin [Neurontin -] 300 mg PO HS 03/16/18 Lidocaine 5% Patch [Lidoderm -] 1 patch PRN 03/16/18 Oxcarbazepine 600 mg PO BID 03/16/18 Tamsulosin HCl [Flomax] 0.4 mg PO DAILY 03/16/18 Acetaminophen [Tylenol .Regular Strength -] 650 mg PO Q4H PRN tablet 03/20/18 Cyclobenzaprine HCl [Flexeril -] 10 mg PO TID PRN tablet 03/20/18 Glycerin Suppository Adult - 1 each RC DAILY PRN supp.rect 03/20/18 Polyethylene Glycol 3350 [Miralax 119 gm Btl -] 17 gm PO DAILY bottle 03/20/18 This patient is new to me today: Yes Date on this admission: 03/21/18 Emergency Visit: Yes ED Registration Date: 03/16/18 Care time: The patient presented to the Emergency Department on the above date and was hospitalized for further evaluation of their emergent condition. Critical Care patient: No - Discharge Referral Referred to [facility] No
== END 2018-03-20 17:55 | disposition home or self-care (01) ==
LOC: JER 21:27 → JERBED 03-16 04:18 → J7W 03-16 09:07
PROVIDERS: ADMIT Internal Medicine; ATTEND Internal Medicine
PROC: 3E033NZ Introduction of Analgesics, Hypnotics, Sedatives into Peripheral Vein, Percutaneous Approach (ICD-10-PCS; principal; 2018-03-16)
PROC: 3E033GC Introduction of Other Therapeutic Substance into Peripheral Vein, Percutaneous Approach (ICD-10-PCS; 2018-03-16)
PROC: 3E013VG Introduction of Insulin into Subcutaneous Tissue, Percutaneous Approach (ICD-10-PCS; 2018-03-16)
PROC: 3E0234Z Introduction of Serum, Toxoid and Vaccine into Muscle, Percutaneous Approach (ICD-10-PCS; 2018-03-16)
DX: M54.5 Low back pain (principal); M48.061 Spinal stenosis, lumbar region without neurogenic claudication; I10 Essential (primary) hypertension; E78.5 Hyperlipidemia, unspecified; E11.9 Type 2 diabetes mellitus without complications; N40.0 Benign prostatic hyperplasia without lower urinary tract symptoms; I25.10 Atherosclerotic heart disease of native coronary artery without angina pectoris; G89.29 Other chronic pain; M10.9 Gout, unspecified; E66.9 Obesity, unspecified; K59.00 Constipation, unspecified; R26.2 Difficulty in walking, not elsewhere classified; Z68.38 Body mass index [BMI] 38.0-38.9, adult; Z85.828 Personal history of other malignant neoplasm of skin; Z79.82 Long term (current) use of aspirin; Z79.84 Long term (current) use of oral hypoglycemic drugs; Z79.4 Long term (current) use of insulin; Z95.1 Presence of aortocoronary bypass graft; Z88.1 Allergy status to other antibiotic agents; S30.810A Abrasion of lower back and pelvis, initial encounter; S30.811A Abrasion of abdominal wall, initial encounter; W01.198A Fall on same level from slipping, tripping and stumbling with subsequent striking against other object, initial encounter; Z91.81 History of falling; Y93.01 Activity, walking, marching and hiking; Y92.230 Patient room in hospital as the place of occurrence of the external cause; Z23 Encounter for immunization
CPT/HCPCS: 36415; 71045-TC-FY; 72100-TC-FY; 80048; 80053; 82962; 85027; 85610; 85730; 90688; 93005; 93010; 97116-GP; 97161-GP; 99283-25; G0378; J1100; J1644

== ENCOUNTER 2018-03-27 09:33 | Inpatient (IN) | payer OTHER ==
[2018-03-27] MEDS ORDERED: ONDANSETRON 4 MG/2 ML VIAL IVPUSH PRN ×2 (14:05→21:56)
[2018-03-27] MEDS ORDERED: LACTATED RINGERS SOLUTION 1,000 ML IV SCH (14:15)
[2018-03-27] MEDS ORDERED: ACETAMINOPHEN INJECTION 100 ML IVPB ONE (14:38)
[2018-03-27] MEDS ORDERED: fentaNYL CITRATE 250 MCG/5 ML VIAL ONE ×2 (14:43→16:05)
[2018-03-27] MEDS ORDERED: MIDAZOLAM HCL 2 MG/2 ML SINGLE DOSE VIAL ONE ×3 (14:43→21:01)
[2018-03-27] MEDS ORDERED: ROCURONIUM BROMIDE 50 MG/5 ML VIAL ONE ×2 (14:44→21:02)
[2018-03-27] MEDS ORDERED: PROPOFOL 20 ML ONE ×9 (14:44→19:43)
[2018-03-27] MEDS ORDERED: SUCCINYLCHOLINE CHLORIDE 200 MG/10 ML VIAL ONE (14:44)
[2018-03-27] MEDS ORDERED: SODIUM CHLORIDE 0.9% P/F 10 ML VIAL IJ ONE ×2 (14:45→20:32)
[2018-03-27] MEDS ORDERED: BUPIVACAINE HCL/PF 0.25% (2.5MG/ML) 10 ML VIAL ONE (15:01)
[2018-03-27] MEDS ORDERED: HEPARIN NA (PORCINE) 5,000 UNITS/ML 1ML VIAL ONE ×2 (15:02→15:40)
[2018-03-27] MEDS ORDERED: THROMBIN (BOVINE) 5,000 UNIT VIAL TP ONE ×2 (15:02→16:20)
[2018-03-27] MEDS ORDERED: LIDOCAINE HCL/PF 2% SDV 5ML VIAL ONE ×2 (15:18→20:14)
[2018-03-27] MEDS ORDERED: ceFAZolin SODIUM 1 GM VIAL IVPB ONE (15:30)
[2018-03-27] MEDS ORDERED: VANCOMYCIN 1,000 MG VIAL (RESTRICTED TO ID ONLY) IVPB ONE (15:30)
[2018-03-27] MEDS ORDERED: BUPIVACAINE LIPOSOME/PF (EXPAREL) 266 MG/20 ML VIAL NR ONE (15:30)
[2018-03-27] MEDS ORDERED: PHENYLEPHRINE HCL 10 MG/1 ML SINGLE DOSE VIAL ONE ×2 (16:02→20:32)
[2018-03-27] MEDS ORDERED: ONDANSETRON 4 MG/2 ML VIAL ONE (16:07)
[2018-03-27] MEDS ORDERED: DEXAMETHASONE SOD PHOSPHATE 4 MG/1 ML VIAL ONE (16:07)
[2018-03-27] MEDS ORDERED: TRANEXAMIC ACID 1000 MG/10 ML VIAL ONE ×2 (16:07→16:58)
[2018-03-27] MEDS ORDERED: KETAMINE HCL 200 MG/20 ML VIAL ONE ×2 (16:20→20:16)
[2018-03-27] MEDS ORDERED: ePHEDrine SULFATE 50 MG/1 ML AMPULE ONE (16:20)
[2018-03-27] MEDS ORDERED: GELATIN, ABSORBABLE 100 EACH SPONGE TP ONE (16:20)
[2018-03-27] MEDS ORDERED: NEOSTIGMINE METHYLSULFATE 0.5 MG/ML - 10 ML MDV ONE (16:55)
[2018-03-27] MEDS ORDERED: GLYCOPYRROLATE 0.2 MG/1 ML VIAL ONE (16:56)
[2018-03-27] MEDS ORDERED: CALCIUM CHLORIDE 1 GM/10 ML *DISP.SYRIN ONE (17:49)
[2018-03-27] MEDS ORDERED: ceFAZolin SODIUM 1 GM VIAL ONE (19:24)
[2018-03-27] MEDS ORDERED: VASOPRESSIN 20 UNITS/ML VIAL IV ONE (20:32)
[2018-03-27] MEDS ORDERED: AMIODARONE IN DEXTROSE,ISO-OSM 360 MG/200 ML BAG IVPB SCH (21:15)
[2018-03-27] MEDS ORDERED: SODIUM CHLORIDE 1,000 ML IV SCH (21:30)
--- NOTE | 2018-03-27 21:51 | PN ---
Progress Note (short form) - Note Progress Note: 62M s/p L1-S1 laminectomies; T12-S1 posterior instrumented spinal fusion POD #0. No intra-operative surgical complications. Intra-operative cardiopulmary instability most consistent with pulmonary embolism. Case aborted intra-operatively, just moments prior to bone grafting & wound closure. Instrumentation had been completed. Patient flipped to supine position and CPR administered for ~20 minutes. -Admit to ICU post-op; pt. to remain intubated. -Pain control: per anaesthesia team; recommend TOOL OR DIE DRAWING CHECKER; No NSAID's. -DVT PPx: - Mechanical only x 72 hrs. post-op: NEYDA's, SCD's. -Incentive spirometry. -PT/OT/Rehab, OOB. -WBAT B/L LE. -q4h B/L LE NV checks. -Post-op antibiotics x 2 doses. -NPO until flatus. -f/u AM labs. -f/u drain output. -Care per ICU & medical hospitalist team. -Will follow. Alex Rodriguez MD (Orthopaedic Surgery).
[2018-03-27] MEDS ORDERED: GLYCERIN 1 RECTAL SUPPOSITORY, ADULT RC PRN (21:55)
--- NOTE | 2018-03-27 21:55 | OP ---
Operative Note - Note: Operative Date: 03/27/18 Pre-Operative Diagnosis: Lumbar spinal stenosis. Rapid neurological decline Operation: L1-S1 laminectomies. T12-S1 posterior instrumentation. Case aborted prior to bone grafting due to cardiopulmonary instability. Post-Operative Diagnosis: Same as Pre-op Surgeon: Alex Rodriguez Timekeeper Supervisor: Nazario Rodriguez Anesthesiologist/BOOK REVIEWER: Michael Jeffries Anesthesia: General Estimated Blood Loss (mls): 1,200 Blood Volume Replaced (mls): 500 (Cell Saver) Fluid Volume Replaced (mls): 4,000 (Crystalloid) Operative Report Dictated: Yes
[2018-03-27] MEDS: INSULIN (LEVEMIR) 100 UNITS/ML UNITS SQ SCH (22:00)
[2018-03-27] MEDS ORDERED: NOREPINEPHRINE BITARTRATE 4 MG/4 ML ML IV ONE (22:00)
--- NOTE | 2018-03-27 22:12 | CONSULT ---
Consultation: REQUESTING PROVIDER: CONSULT REQUEST: We have been asked to medically evaluate this patient for ( specify). HISTORY OF PRESENT ILLNESS: The patient is a 62 yo m w/ PMH chronic back pain, CAD s/p CABG 2019 on plavix ( held before surg), HTN, HLD, IDDM, BPH who presented for a L1-S1 laminectomyy and T12-S1 posterior instrumentation. Case proceeded w/o issue with ebl 1200, until patient desatted prior to bone grafting. Wound was closed patient was turned over, at which point he lost pulse in PEA. Code 99 was called, high quality cpr was initiated and ROSC was achieved after aprox 25 min, including a shock and amiodarone. patient received a central line and was transferrred to ICU. he is hemodynamically stable on levo at 5 MAP 91, HR 110, O2 sat 94%. Vent settings 12/450/60%/5. Per anesthesia, there was strong suspicion of PE based on vent readings at the time of code. Bedside TTE done by ICU resident had a poor window but appeared to reveal a hyperdistended RV with septum bowing into LV, with LV almost completely collapsed. Family was notified. Intraop repletion: 500 cell saver, 4 L crystalloid REVIEW OF SYSTEMS: unable to obtain PHYSICAL EXAMINATION Vital Signs - 24 hr 03/27/18 10:43 Temperature 98.9 F Pulse Rate 80 Respiratory 20 Rate Blood Pressure 119/72 O2 Sat by Pulse 98 Oximetry (%) GENERAL: obtunded HEAD: Normal with no signs of trauma. EYES: pupils fixed 2 mm not responsive to light EARS, NOSE, THROAT: Moist mucous membranes. NECK: supple, unable to assess JVD due to girth/short neck. R IJ line LUNGS: cta b/l HEART: tachy rate and reg rhythm, normal S1 and S2 ABDOMEN: Soft, obese, not distended, absent bowel sounds, no masses. MUSCULOSKELETAL: apparent anterior rib fractures UPPER EXTREMITIES: 1+ pulses, warm, well-perfused. No cyanosis. No peripheral edema. LOWER EXTREMITIES: 1+ pulses DP, warm, toes cool and blue NEUROLOGICAL: obtunded, no pupillary reflex, +abdominal breathing + posturing. PSYCHIATRIC: obtunded SKIN: Warm, dry Laboratory Results - last 24 hr 03/27/18 03/27/18 03/27/18 09:54 10:35 12:29 POC Glucometer 191 Blood Type A POSITIVE A POSITIVE Antibody Screen Negative Active Medications Generic Name Dose Route Start Last Admin Trade Name Freq PRN Reason Stop Dose Admin Fentanyl 50 mcg 03/27/18 14:05 Sublimaze Injection - IVPUSH Q5M PRN PAIN-PACU ORDER X 4 DOSES ONLY Glycerin 1 each 03/27/18 21:55 Glycerin Suppository Adult - RC DAILY PRN CONSTIPATION Lactated Ringer's 1,000 mls @ 125 mls/hr 03/27/18 14:15 Lactated Ringers Solution IV ASDIR SYLVIA Amiodarone HCl/Dextrose 360 mg in 200 mls @ 33.333 mls/hr 03/27/18 21:15 Nexterone 360 Mg/200 Ml Bag IVPB TITR SYLVIA Protocol 1 MG/MIN Sodium Chloride 1,000 mls @ 125 mls/hr 03/27/18 21:30 Normal Saline - IV ASDIR SYLVIA Insulin Detemir 30 units 03/27/18 22:00 Levemir Vial SQ HS [facility] Metoprolol Tartrate 25 mg 03/28/18 10:00 Lopressor - PO DAILY [facility] Ondansetron HCl 4 mg 03/27/18 21:56 Zofran Injection IVPUSH Q6H PRN NAUSEA AND/OR VOMITING Tamsulosin HCl 0.4 mg 03/28/18 10:00 Flomax - PO DAILY [facility] ASSESSMENT/PLAN: The patient is a 62 yo m w/ PMH chronic back pain, CAD s/p CABG 2019 on plavix ( held before surg), HTN, HLD, IDDM, BPH who presented for a L1-S1 laminectomyy and T12-S1 posterior instrumentation. S/P cardiac arrest cardiogenic shick, suspicious for massive PE s/p L1-S1 laminectomyy and T12-S1 posterior instrumentation CAD s/p CABG 2018 HTN HLD IDDM BPH -rosc after 25 min, pea-->vt? given 1 shock and amiodarone -EKG no change from pre op -CXR: RV/RA increased in size, broken ribs, + chest tube, + R IJ -continue amodarone gtt -strong suspicion of PE as culprit of cardiogenic shock given anesthesia feedback and bedside tte -patient not a candidate for tPA or any AC due to severe bleeding risk; CTA chest will not exchange underwriting consultant -patient obtunded, showing signs of brain damage, initiate cooling protocol 36C x 24 hr -hold sedation, will paralyze if shivering occurs -stabilize k/mag/phos -expect trop and lactate elevation -Glucose goal 140-180. hold levemir, BGM q2h, ISS -NS @ 125, patient is likely preload dependant in setting of massive PE -Levo gtt MAP goal > 65. consider ionotropic support -TTE am, cardiology consult -wound check q 4 hr for bleeding or sooner if hemodynamic instability ensues. -strict i/o, daily weights Dispo: We will continue to follow the patient. Thank you for this consultative opportunity. Problem List - Problems (1) Cardiac arrest Code(s): I46.9 - CARDIAC ARREST, CAUSE UNSPECIFIED (2) Cardiogenic shock Code(s): R57.0 - CARDIOGENIC SHOCK (3) HTN (hypertension) Code(s): I10 - ESSENTIAL (PRIMARY) HYPERTENSION (4) HLD (hyperlipidemia) Code(s): E78.5 - HYPERLIPIDEMIA, UNSPECIFIED (5) Insulin dependent diabetes mellitus Code(s): E11.9 - TYPE 2 DIABETES MELLITUS WITHOUT COMPLICATIONS; Z79.4 - PRISON (CURRENT) USE OF INSULIN (6) CAD (coronary artery disease) Code(s): I25.10 - ATHSCL HEART DISEASE OF [place] CORONARY ARTERY W/O ANG PCTRS (7) Hx of CABG Code(s): Z95.1 - PRESENCE OF AORTOCORONARY BYPASS GRAFT (8) Intractable back pain Code(s): M54.9 - DORSALGIA, UNSPECIFIED Visit type - Emergency Visit Emergency Visit: No - New Patient This patient is new to me today: Yes Date on this admission: 03/27/18 - Critical Care Critical Care patient: Yes Total Critical Care Time (in minutes): 60 Critical Care Statement: The care of this patient involved high complexity decision making to prevent further life threatening deterioration of the patient 's condition and/or to evaluate & treat vital organ system(s) failure or risk of failure.
[2018-03-27] MEDS ORDERED: NOREPINEPHRINE BITARTRATE 8,000 MCG in DEXTROSE 5%-WATER - 492 ML IV SCH (22:30)
[2018-03-27 22:44] LABS: ARTERIAL BLOOD GAS PCO2 39.8 mmHg (35-45); ARTERIAL BLOOD GAS pH 7.25 (7.35-7.45)
[2018-03-27 22:45] LABS: ARTERIAL BLOOD GAS BASE EXCESS -9.3 meq/l (-2-2)
[2018-03-27] MEDS ORDERED: LACTATED RINGERS SOLUTION 1,000 ML/1,000 ML INFUS.BAG IV SCH (23:15)
--- NOTE | 2018-03-27 23:28 | OP ---
DATE OF OPERATION: 03/27/2018 SURGEON: Alex Rodriguez MD FRUIT OR [employer] FARM WORKER: Nazario Rodriguez MD PREOPERATIVE DIAGNOSES: Severe spinal stenosis with neurogenic progressive motor and sensory weakness, lower extremities, with recurrent falls and progressive impending paraparesis. POSTOPERATIVE DIAGNOSES: Severe spinal stenosis with neurogenic progressive motor and sensory weakness, lower extremities, with recurrent falls and progressive impending paraparesis. OPERATION PERFORMED: 1. Laminectomy, L1 to S1. 2. Pedicle screw instrumentation, T12 to S1. 3. Posterolateral arthrodesis, T12 to S1. 4. Small incidental durotomy with primary repair. ANESTHESIA: General. ANTIBIOTICS GIVEN: Kefzol 2 g, vancomycin 1 g given preoperative; Kefzol 1 g given at the time of seating the instrumentation. BLOOD LOSS: 1200 mL; 550 Cell Saver blood given back to the patient. MAJOR COMPLICATION: Sudden drop in pulmonary saturation, followed by simultaneously loss of SSEP monitoring signals, and then, progressive cardiac arrhythmia progressing to asystole. Full resuscitation placed after rapid closing of the wound at the end of the procedure. That was at the time that the rods had been inserted and fixed already. The skin was rapidly closed, and a full resuscitation went into play. This was with the full resuscitation team from the ICU. After extensive resuscitative events, the patient's heart recovered with return of pulse, and the patient was transferred then to the ICU. INDICATIONS: The surgery was indicated because of progressive neurological weakness due to the most severe spinal stenosis in a man with morbid obesity, diabetes, and previous coronary artery disease. The patient was seen by myself privately and advised to go into a full weight reduction plan before any surgical attention was even thought about. Unfortunately, the patient was admitted to [facility] approximately 2-3 weeks prior to this for pain management and attention to weakness of lower extremities. The patient had had recurrent falls, recurrent giving way of his lower extremities, and progressive decline in neurological function to his lower extremities. OPERATION DETAILS: Patient correctly identified, brought to the operating room. The patient was placed prone on a Blaise table. All bony points were appropriately padded, including attention to the eyes. The head was kept at 10 degrees ante-Trendelenburg for ophthalmic vein perfusion purposes. A midline incision from the tip of the spinous process of T11 to the tip of the spinous process of L1. Subperiosteal dissection performed. The entire dissection was performed with subperiosteal dissection and hemostasis achieved as we went along. The entire spine was opened to the right down to the tip of the transverse processes, exposing the ala. No significant hemorrhage noted, and the intertransverse plane was packed with 4x8 sponges. Verification of lateral fluoroscopic x-ray for the levels of surgical intervention and the planned L1 to S1 laminectomy was executed to decompress a very severe spinal stenosis. A small dural tear occurred on the right L3 level. This was repaired after complete bone removal, including the laminae and an associated undercutting superior facetectomy performed. This was performed with using Leksell rongeurs, Kerrison upcuts, as well as osteotomes to implode the bone inwards and retrieve this bone and then go ahead with full foraminal decompression as well. Once the decompression had been performed, the cord was completely free and the thecal elements completely free, as was each nerve root and traced out through each foramen from T12 right down to L5. The S1 nerve root, which exits out the ventral foramen, appeared to be free at the lumbosacral junction posteriorly. The small dural tear was tested with repeated Valsalva maneuvers, and this resulted in a sealed watertight closure. As noted, this was repaired with 4-0 Nurolon. Once this had been performed, each pedicle from T12 to S1 were identified using anatomical guidelines. Lateral fluoroscopic x-ray enabled me to carefully seat each pedicle screw accurately under the endplates. No complications. Seating all the screws from T11 to S1. Used the 4.5 drill, followed by a ball-tipped feeler to feel each pedicle, and then each screw measured 6.5 x 45 mm. The rods were then contoured. This was a difficult contouring procedure because of the severe lordosis and then marked sharp, angular kyphosis, but the rods were positioned appropriately and fixed with caps. There were no complications in seating the rods. This was not a timeous procedure, and the bending of the rods was expedited without any complications. Solid fixation of the screws with a torque device. It was that at this point of the operation that, suddenly, his saturations dropped. The anesthesia team alerted us to this. We rapidly closed the wound with PDS and arely and turned the patient into the supine position onto a stretcher, and a full code resuscitation was performed. It must be noted that he became asystolic a short while after the drop in saturations, and our suspicion is that of a pulmonary embolus; however, full resuscitation code was called, and after about 10 minutes, the patient's cardiac status improved dramatically. His heart pumping was vigorous, and his color, which was a cyanotic blue, returned to pink rapidly thereafter. An extensive amount of bicarbonate as well as epinephrine and atropine with other resuscitative drugs combined with cardioversion performed. This all brought about return to cardiac function. The patient remained intubated and was transferred to the ICU thereafter. OVERALL COMMENT: Patient with severe spinal stenosis, progressive neurological compromise, in need of the surgery, but comorbidities were significant, and this was readily expressed to him prior to the surgery. The risks were actively discussed with him, and the comorbidities predominantly being diabetes, morbid obesity, and previous coronary artery bypass surgery approximately 5 years ago with tophaceous gout as another comorbidity. It must be noted there was no time to seat the bone grafting material, and there was no time to do a proper closure. The tissues were approximated with a number 2 PDS and then arely to maintain this closure. I am recommending continued antibiotic and appropriate medical care and medical management appropriately. MD NOEMI Velez/[id number]
[2018-03-27] MEDS ORDERED: INSULIN (NOVOLOG) ASPART 100 UNITS/ML 10ML VIAL SQ ONE (23:30)
[2018-03-27] MEDS: SODIUM CHLORIDE 1,000 ML IV SCH (23:36)
[2018-03-28] LABS: BASO % 0.1 % (0-2.0); HEMATOCRIT 38.5 % (35.4-49); HEMOGLOBIN 12.6 GM/dL (11.7-16.9); LYMPH % 3.2 % (8-40); MCH 28.7 pg (25.7-33.7); MCHC 32.7 g/dl (32.0-35.9); MEAN CELL VOLUME 87.5 fl (80-96); MEAN PLT VOLUME 7.8 fl (7.5-11.1); MONO % 6.6 % (3.8-10.2); NEUT % 90.1 % (42.8-82.8); PLATELET COUNT 274 K/MM3 (134-434); RDW 16.1 % (11.9-15.9); WHITE BLOOD COUNT 20.1 K/mm3 (4.0-10.0)
[2018-03-28] MEDS: AMIODARONE IN DEXTROSE,ISO-OSM 360 MG/200 ML BAG IVPB SCH ×3 (00:08→21:14)
[2018-03-28 00:19] LABS: INR 1.19 (0.83-1.09); PROTHROMBIN TIME (PATIENT) 14.1 SEC (9.7-13.0)
[2018-03-28 00:21] LABS: ACTIVATED PTT 24.1 SECONDS (25.2-36.5)
[2018-03-28 00:35] LABS: ALBUMIN 2.7 g/dl (3.4-5.0); ALK PHOS 83 U/L (45-117); ANION GAP 15 MMOL/L (8-16); BILIRUBIN,TOTAL 1.2 mg/dL (0.2-1); BLOOD UREA NITROGEN 19 mg/dL (7-18); CALCIUM 8.9 mg/dL (8.5-10.1); CHLORIDE 105 mmol/L (98-107); CO2 20 mmol/L (21-32); CREATININE 1.3 mg/dL (0.55-1.3); PHOSPHOROUS 7.2 mg/dL (2.5-4.9); SGPT/ALT 117 U/L (13-61); SODIUM 140 mmol/L (136-145); TOT PROT 5.2 g/dl (6.4-8.2)
[2018-03-28 00:36] LABS: POTASSIUM 4.9 mmol/L (3.5-5.1); SGOT/AST 180 U/L (15-37)
[2018-03-28 00:39] LABS: GLUCOSE,RANDOM 336 mg/dL (74-106)
[2018-03-28] MEDS: INSULIN SLIDING SCALE (NOVOLOG) 1 VIAL SQ SCH ×10 (00:55→21:22)
[2018-03-28] MEDS: PROPOFOL 1,000,000 MCG/100 ML VIAL IVPB SCH ×4 (01:15→21:23)
[2018-03-28 02:09] LABS: ACANTHOCYTES 0; ANISOCYTOSIS 0; HELMET CELLS 0; HOWELL-JOLLY BODIES 0; MACROCYTOSIS 0; OVALOCYTE 0; PLATELET ESTIMATE NORMAL; ROULEAU 0; SICKELED CELLS 0; TARGET CELLS 0; TEAR DROP CELLS 0; TOXIC GRANULATION 0
[2018-03-28] MEDS ORDERED: ACETAMINOPHEN 1000 MG/100 ML VIAL (NON FORMULARY) IVPB ONE (04:54)
[2018-03-28] MEDS ORDERED: INSULIN REGULAR 100 UNITS in SODIUM CHLORIDE 99 ML IVPB SCH ×2 (05:15→08:39)
[2018-03-28] MEDS: VECURONIUM BROMIDE 50 MG in DEXTROSE 5%-WATER - 250 ML IVPB SCH ×2 (06:20→16:26)
[2018-03-28 06:29] LABS: BASO % 0.1 % (0-2.0); HEMATOCRIT 38.3 % (35.4-49); HEMOGLOBIN 12.6 GM/dL (11.7-16.9); LYMPH % 3.5 % (8-40); MCH 28.6 pg (25.7-33.7); MEAN CELL VOLUME 86.6 fl (80-96); MEAN PLT VOLUME 7.4 fl (7.5-11.1); NEUT % 92.4 % (42.8-82.8); PLATELET COUNT 182 K/MM3 (134-434); RBC 4.43 M/mm3 (4.00-5.60); RDW 15.8 % (11.9-15.9); WHITE BLOOD COUNT 20.3 K/mm3 (4.0-10.0)
[2018-03-28] MEDS ORDERED: INSULIN SLIDING SCALE (NOVOLOG) 1 VIAL SQ SCH (07:00)
[2018-03-28] MEDS: SODIUM CHLORIDE 1,000 ML IV SCH ×3 (07:00→21:23)
[2018-03-28 07:04] LABS: ALBUMIN 2.8 g/dl (3.4-5.0); ALK PHOS 78 U/L (45-117); ANION GAP 12 MMOL/L (8-16); BILIRUBIN,TOTAL 0.7 mg/dL (0.2-1); BLOOD UREA NITROGEN 22 mg/dL (7-18); CHLORIDE 110 mmol/L (98-107); CO2 22 mmol/L (21-32); CREATININE 1.3 mg/dL (0.55-1.3); GLUCOSE,RANDOM 255 mg/dL (74-106); PHOSPHOROUS 3.9 mg/dL (2.5-4.9); SGOT/AST 204 U/L (15-37); SGPT/ALT 115 U/L (13-61); SODIUM 144 mmol/L (136-145); TOT PROT 5.3 g/dl (6.4-8.2)
--- NOTE | 2018-03-28 07:05 | PN ---
Progress Note, Physician Chief Complaint: day 1 s/p PLIF and presumed intraoperative PE - Current Medication List Current Medications: Active Medications Fentanyl (Sublimaze Injection -) 50 mcg IVPUSH Q5M PRN PRN Reason: PAIN-PACU ORDER X 4 DOSES ONLY Glycerin (Glycerin Suppository Adult -) 1 each RC DAILY PRN PRN Reason: CONSTIPATION Amiodarone HCl/Dextrose (Nexterone 360 Mg/200 Ml Bag) 360 mg in 200 mls @ 33.333 mls/hr IVPB TITR [facility]; Protocol Last Admin: 03/28/18 00:08 Dose: 1 mg/min, 33.333 mls/hr Norepinephrine Bitartrate 8, (000 mcg/ Dextrose) 500 mls @ 18.75 mls/hr IV TITR [facility]; Protocol Last Admin: 03/27/18 22:40 Dose: 5 mcg/min, 18.75 mls/hr Sodium Chloride (Normal Saline -) 1,000 mls @ 125 mls/hr IV ASDIR [facility] Last Admin: 03/27/18 23:36 Dose: 125 mls/hr Propofol (Diprivan -) 1,000,000 mcg in 100 mls @ 7.484 mls/hr IVPB TITR [facility]; Protocol Last Admin: 03/28/18 01:15 Dose: 10 mcg/kg/min, 7.484 mls/hr Insulin Human Regular 100 (units/ Sodium Chloride) 100 mls @ 12.47 mls/hr IVPB TITR [facility]; Protocol Last Admin: 03/28/18 05:59 Dose: 0.1 units/kg/hr, 12.47 mls/hr Vecuronium [place] 50 mg/ (Dextrose) 250 mls @ 37.42 mls/hr IVPB TITR [facility] Insulin Aspart (Novolog Vial Sliding Scale -) 1 vial SQ Q2H [facility]; Protocol Last Admin: 03/28/18 04:19 Dose: 12 units Insulin Detemir (Levemir Vial) 30 units SQ HS [facility] Last Admin: 03/27/18 22:00 Dose: Not Given Metoprolol Tartrate (Lopressor -) 25 mg PO DAILY [facility] Ondansetron HCl (Zofran Injection) 4 mg IVPUSH Q6H PRN PRN Reason: NAUSEA AND/OR VOMITING Tamsulosin HCl (Flomax -) 0.4 mg PO DAILY [facility] - Objective Vital Signs: Vital Signs Temperature 98.3 F 03/28/18 06:00 Pulse Rate 80 03/28/18 06:00 Respiratory Rate 26 H 03/28/18 06:46 Blood Pressure 130/83 03/28/18 06:00 O2 Sat by Pulse Oximetry (%) 100 03/28/18 02:00 Labs: INR, PTT INR 1.19 (0.83-1.09) H 03/27/18 23:30 Assessment/Plan Pt had presumed massive intraoperative PE. He is s/p 26 minutes of CPR with ROSC, with subsequent transfer to ICU for further management. Hypothermia protocol was initiated. Pt on low-dose levophed, with propofol sedation. Patient is hemodynamically stable currently, although with 26 minutes of CPR, oysterman neurological outlook is not very promising. Appreciate ICU management.
--- NOTE | 2018-03-28 07:15 | PN ---
Progress Note (short form) - Note Progress Note: Chief Complaint: Events noted, notes reviewed , intubated, sedated and unresponsive History of Present Illness: Seen and examined in t ICU. Full consult dictated Echocardiography pending Medications: Current Medications Fentanyl (Sublimaze Injection -) 50 mcg IVPUSH Q5M PRN PRN Reason: PAIN-PACU ORDER X 4 DOSES ONLY Glycerin (Glycerin Suppository Adult -) 1 each RC DAILY PRN PRN Reason: CONSTIPATION Amiodarone HCl/Dextrose (Nexterone 360 Mg/200 Ml Bag) 360 mg in 200 mls @ 33.333 mls/hr IVPB TITR [facility]; Protocol Last Titration: 03/28/18 06:30 Dose: 0.5 mg/min, 16.667 mls/hr Norepinephrine Bitartrate 8, (000 mcg/ Dextrose) 500 mls @ 18.75 mls/hr IV TITR [facility]; Protocol Last Admin: 03/27/18 22:40 Dose: 5 mcg/min, 18.75 mls/hr Propofol (Diprivan -) 1,000,000 mcg in 100 mls @ 7.484 mls/hr IVPB TITR [facility]; Protocol Last Titration: 03/28/18 04:01 Dose: 20 mcg/kg/min, 14.969 mls/hr Insulin Human Regular 100 (units/ Sodium Chloride) 100 mls @ 12.47 mls/hr IVPB TITR [facility]; Protocol Last Admin: 03/28/18 05:59 Dose: 0.1 units/kg/hr, 12.47 mls/hr Vecuronium [place] 50 mg/ (Dextrose) 250 mls @ 37.42 mls/hr IVPB TITR [facility] Last Admin: 03/28/18 06:20 Dose: 1 mcg/kg/min, 37.42 mls/hr Sodium Chloride (Normal Saline -) 1,000 mls @ 75 mls/hr IV ASDIR [facility] Insulin Aspart (Novolog Vial Sliding Scale -) 1 vial SQ Q2H [facility]; Protocol Last Admin: 03/28/18 07:01 Dose: Not Given Insulin Detemir (Levemir Vial) 30 units SQ HS [facility] Last Admin: 03/27/18 22:00 Dose: Not Given Metoprolol Tartrate (Lopressor -) 25 mg PO DAILY [facility] Ondansetron HCl (Zofran Injection) 4 mg IVPUSH Q6H PRN PRN Reason: NAUSEA AND/OR VOMITING Tamsulosin HCl (Flomax -) 0.4 mg PO DAILY [facility] Review of Systems Unable to obtain Vital Signs: Last Vital Signs Temp Pulse Resp BP Pulse Ox 98.3 F 84 12 135/73 100 03/28/18 07:00 03/28/18 07:00 03/28/18 07:00 03/28/18 07:00 03/28/18 02:00 Intake & Output 03/25/18 03/26/18 03/27/18 03/28/18 23:59 23:59 23:59 23:59 Intake Total 4500 Output Total 1400 800 Balance 3100 -800 Neck: Supple Negative JVD Respiratory: Bilateral Scattered Rhonchi Cardiovascular: S1 S2 Regular Rate and Rhythm Grade 1-2/6 ARMANI Gastrointestinal: Soft Benign Normal Bowel Sounds Ext: Negative Edema Chronic Venous Stasis Changes Labs: ABG Results ABG pH 7.25 (7.35-7.45) L 03/27/18 22:00 ABG pCO2 at Pt Temp 39.8 mmHg (35-45) 03/27/18 22:00 ABG pO2 at Pt Temp 228.0 mmHg (80-100) H* 03/27/18 22:00 ABG HCO3 16.9 meq/L (22-26) L 03/27/18 22:00 ABG O2 Sat (Measured) 99.0 % (90-98.9) H 03/27/18 22:00 ABG O2 Content 17.2 % vol (15-22) 03/27/18 22:00 ABG Base Excess -9.3 meq/l (-2-2) L 03/27/18 22:00 Troponin, BNP 03/27/18 03/27/18 23:30 23:30 Troponin I Cancelled 0.26 H CBC, BMP 03/28/18 05:30 03/28/18 05:30 Hepatic Panel Total Bilirubin 0.7 mg/dL (0.2-1) 03/28/18 05:30 AST 204 U/L (15-37) H 03/28/18 05:30 ALT 115 U/L (13-61) H 03/28/18 05:30 Alkaline Phosphatase 78 U/L (45-117) 10/02/18 05:30 Albumin 2.8 g/dl (3.4-5.0) L 03/28/18 05:30 INR, PTT INR 1.19 (0.83-1.09) H 03/27/18 23:30 Assessment/Plan ASSESSMENT: 1. Post cardiopulmonary arrest/pulse-less electrical activity, ventricular tachycardia post resuscitation currently intubated/sedated unresponsive 2. Post operative day #1 post lumber laminectomy 3. Anoxic brain injury to be considered in view of above clinical presentation 4. CAD post CABG angina pectoris with evidence of demand ischemia 5. LV systolic/diastolic dysfunction with class 0 NYHA classification LV failure 6. History of HTN 7. History of DM 8. History of hypercholesterolemia 9. Chronic kidney disease PLAN: 1. Hypothermia protocol as per the ICU protocol 2. Continue Amiodarone loading as ordered 3. B-Blockers hemodynamics permitting 4. ACEI or ARBS hemodynamics permitting unless contraindicated 5. Recommend ASA resumption unless contraindicated, hold of on Plavix resumption if additional intervention is planned 6. Statins unless contraindicated 7. Echocardiography for evaluation of LV size and function 8. Neurology evaluation for patient's neurological status Condition critical Hazel Bush M.D.
--- NOTE | 2018-03-28 07:49 | RAPID ---
Physical Examination Vital Signs: Vital Signs Temperature 98.3 F 03/28/18 07:00 Pulse Rate 84 03/28/18 07:00 Respiratory Rate 12 03/28/18 07:00 Blood Pressure 135/73 03/28/18 07:00 O2 Sat by Pulse Oximetry (%) 100 03/28/18 02:00 Labs: CBC, BMP 03/28/18 05:30 03/28/18 05:30 Rapid Response - Rapid Response Assessment: Code 99 called overhead in OR during surgical procedure. ACLS protocol initiated. See code sheet for details.
--- NOTE | 2018-03-28 08:25 | CON.NEURO ---
Consult - History of Present Illness History of Present Illness: 62 yo m w/ PMH chronic back pain, CAD s/p CABG 2019 on plavix (held before surg) , HTN, HLD, IDDM, BPH who presented for a L1-S1 laminectomyy and T12-S1 posterior instrumentation. Case proceeded w/o issue with ebl 1200, until patient desatted prior to bone grafting. Wound was closed patient was turned over, at which point he lost pulse in PEA. Code 99 was called, high quality cpr was initiated and ROSC was achieved after aprox 25 min, including a shock and amiodarone. called for neurological evaluation. on prorfol and fentanyl sedation, cooling protocol. No brain imaging noted. - Alcohol/Substance Use Hx Alcohol Use: Yes (occas) - Smoking History Smoking history: Never smoked Home Medications - Allergies Allergies/Adverse Reactions: Allergies Allergy/AdvReac Type Severity Reaction Status Date / Time bacitracin Allergy Verified 03/27/18 10:06 cimetidine [From Tagamet] Allergy Verified 03/27/18 10:06 - Home Medications Home Medications: Ambulatory Orders Allopurinol 600 mg PO DAILY 07/21/17 Clopidogrel Bisulfate [Plavix -] 75 mg PO DAILY 07/21/17 Dapagliflozin Propanediol [Farxiga] 5 mg PO DAILY 07/21/17 Duloxetine HCl [Cymbalta -] 60 mg PO DAILY 07/21/17 Glipizide 5 mg PO DAILY 07/21/17 Insulin Glargine,Hum.rec.anlog [Lantus Solostar] 30 unit SQ HS 07/21/17 Metoprolol Tartrate 25 mg PO DAILY 07/21/17 Saxagliptin HCl [Onglyza] 5 mg PO DAILY 07/21/17 Simvastatin 40 mg PO HS 07/21/17 Silver Sulfadiazine 1% Top Cr [Silvadene -] 1 applic TP DAILY #1 jar 07/25/17 Aspirin [Adult Aspirin] 81 mg PO DAILY 03/16/18 Docusate Sodium [Colace] 400 mg PO DAILY 03/16/18 Fentanyl 50 mcg Q3D 03/16/18 Oxcarbazepine 600 mg PO BID 03/16/18 Tamsulosin HCl [Flomax] 0.4 mg PO DAILY 03/16/18 Acetaminophen [Tylenol .Regular Strength -] 650 mg PO Q4H PRN tablet 03/20/18 Cyclobenzaprine HCl [Flexeril -] 10 mg PO TID PRN tablet 03/20/18 Glycerin Suppository Adult - 1 each RC DAILY PRN supp.rect 03/20/18 Polyethylene Glycol 3350 [Miralax 119 gm Btl -] 17 gm PO DAILY bottle 03/20/18 Physical Exam-Neuro Vital Signs: Vital Signs Temperature 98.0 F 03/28/18 08:00 Pulse Rate 93 H 03/28/18 08:00 Respiratory Rate 15 03/28/18 08:00 Blood Pressure 150/90 03/28/18 08:00 O2 Sat by Pulse Oximetry (%) 100 03/28/18 02:00 Labs: CBC, BMP 03/28/18 05:30 03/28/18 05:30 INR, PTT INR 1.19 (0.83-1.09) H 03/27/18 23:30 - Neuro Exam Level Of Consciousness: Yes: Sedated (on sedation and cooling protocol, breathing with vent 12/12, pupils fixed at 3 mm, no corneals or Dolls, no focal twtitching , no spont movements ) Problem List - Problems (1) Encephalopathy acute Code(s): G93.40 - ENCEPHALOPATHY, UNSPECIFIED (2) Cardiac arrest Code(s): I46.9 - CARDIAC ARREST, CAUSE UNSPECIFIED (3) Cardiogenic shock Code(s): R57.0 - CARDIOGENIC SHOCK Assessment/Plan 62 yo m w/ PMH chronic back pain, CAD s/p CABG 2019 on plavix (held before surg) , HTN, HLD, IDDM, BPH who presented for a L1-S1 laminectomyy and T12-S1 posterior instrumentation. Case proceeded w/o issue with ebl 1200, until patient desatted prior to bone grafting. Wound was closed patient was turned over, at which point he lost pulse in PEA. Code 99 was called, high quality cpr was initiated and ROSC was achieved after aprox 25 min, including a shock and amiodarone. called for neurological evaluation. on prorfol and fentanyl sedation, cooling protocol. No brain imaging noted. AP : possible anoxic brain injury though difficult to assess given sedation, limited exam at this juncture, though mechanism of injury concerning for underlying anoxic neurological injury will reassess after sedation tapered off HD CT if possible DR SALAZAR
--- NOTE | 2018-03-28 08:42 | ECHO ---
Version: 1 Name: AUSTYN MCGILL Exam: Adult Echocardiogram Study Date: 03/28/2018, 7:31 AM Age: 62 Years MMode/2D Measurements & Calculations Ao root diam: 2.7 cm LA dimension: 3.8 cm Doppler Measurements & Calculations MV E max graham: 56.3 cm/sec Med E/e': 4.3 MV A max graham: 80.0 cm/sec Med Peak E' Graham: 13.1 cm/sec MV E/A: 0.70 Lat E/e': 5.5 Lat Peak E' Graham: 10.2 cm/sec AI P1/2t: 1361 msec TR max graham: 268.3 cm/sec TR max P.5 mmHg Procedure A complete two-dimensional transthoracic echocardiogram was performed (2D, M-mode, Doppler and color flow Doppler). Left Ventricle The left ventricle is normal in size. Ejection Fraction = 55%. Left ventricular systolic function is grossly normal. The transmitral spectral Doppler flow pattern is suggestive of impaired LV relaxation. Regio nal wall motion abnormalities cannot be excluded due to limited visualization. Right Ventricle The right ventricle is normal in size and function. Atria Normal left and right atrial size and function. Mitral Valve The mitral valve is grossly normal. There is trace mitral regurgitation. Tricuspid Valve The tricuspid valve is not well visualized. There is trace tricuspid regurgitation. There is mild pu lmonary hypertension. Aortic Valve There is mild aortic sclerosis.;. Pulmonic Valve The pulmonic valve is not well visualized. Great Vessels The aortic root is not well visualized but is probably normal size. Pericardium/Pleura There is no pericardial effusion. There is no pleural effusion. Summary Statements Left ventricular systolic function is grossly normal. Ejection Fraction = 55%. Regional wall motion abnormalities cannot be excluded due to limited visualization. There is trace mitral regurgitation. There is trace tricuspid regurgitation. There is mild pulmonary hypertension. MD Raymond Wong 03/28/2018, 8:41 AM Ordering Physician: Madison Mcgregor Referring Physician: Alex Rodriguez Performed By: Antonia Burks
[2018-03-28] MEDS ORDERED: METOPROLOL TARTRATE 25 MG TABLET (FP) PO SCH (10:00)
--- NOTE | 2018-03-28 10:42 | EKG ---
Test Reason : Blood Pressure : / mmHG Vent. Rate : 067 BPM Atrial Rate : 067 BPM P-R Int : 000 ms QRS Dur : 140 ms QT Int : 462 ms P-R-T Axes : 012 -49 061 degrees QTc Int : 488 ms NORMAL SINUS RHYTHM WITH SINUS ARRHYTHMIA RIGHT BUNDLE BRANCH BLOCK LEFT ANTERIOR FASCICULAR BLOCK BIFASCICULAR BLOCK ABNORMAL ECG Confirmed by Raymond Wong MD ([id number]) on 03/28/2018 10:42:23 AM Referred By: Alex Rodriguez Confirmed By:Raymond Wong MD
[2018-03-28 10:58] LABS: ACANTHOCYTES 0; ANISOCYTOSIS 0; HELMET CELLS 0; HOWELL-JOLLY BODIES 0; MACROCYTOSIS 0; OVALOCYTE 0; PLATELET ESTIMATE NORMAL; ROULEAU 0; SICKELED CELLS 0; TARGET CELLS 0; TEAR DROP CELLS 0; TOXIC GRANULATION 0
[2018-03-28] MEDS ORDERED: METOPROLOL TARTRATE 5 MG/5 ML VIAL IVPUSH PRN (11:17)
[2018-03-28] MEDS: PANTOPRAZOLE SODIUM 40 MG VIAL IVPUSH SCH (11:20)
[2018-03-28 11:25] LABS: ARTERIAL BLOOD GAS pH 7.34 (7.35-7.45)
[2018-03-28 11:26] LABS: ALLENS TEST POSITIVE; ARTERIAL BLOOD GAS BASE EXCESS -2.4 meq/l (-2-2); ARTERIAL BLOOD GAS PCO2 43.6 mmHg (35-45); ARTERIAL BLOOD GAS PO2 94.1 mmHg (80-100)
[2018-03-28] MEDS: ARTIFICIAL TEARS (POLYVINYL ALCOHOL) OPTH DROPS OU PRN (12:56)
--- NOTE | 2018-03-28 13:27 | PN ---
Teaching Attending Note Name of Resident: China Randle ATTENDING PHYSICIAN STATEMENT I saw and evaluated the patient. I reviewed the resident's note and discussed the case with the resident. I agree with the resident's findings and plan as documented. SUBJECTIVE: Pt seen and examined in the ICU. Remains intubated, sedated, paralyzed. Hypothermia protocol in progress. OBJECTIVE: Vital Signs Period Temp Pulse Resp BP Sys/Martinez Pulse Ox Last 24 Hr 96.1 F-963 F 60-99 12-26 98-169/58-90 100-100 Intake & Output 03/25/18 03/26/18 03/27/18 03/28/18 23:59 23:59 23:59 23:59 Intake Total 4500 1783.5 Output Total 1400 800 Balance 3100 983.5 Gen: intubated, sedated Heart: RRR Lung: decreased breath sounds at the bases Abd: soft, nontender Ext: no edema CBC, BMP 03/28/18 05:30 03/28/18 05:30 Active Medications Artificial Tears (Artificial Tears) 1 drop OU BID PRN PRN Reason: DRY EYES Last Admin: 03/28/18 12:56 Dose: 1 drop Fentanyl (Sublimaze Injection -) 50 mcg IVPUSH Q5M PRN PRN Reason: PAIN-PACU ORDER X 4 DOSES ONLY Glycerin (Glycerin Suppository Adult -) 1 each RC DAILY PRN PRN Reason: CONSTIPATION Amiodarone HCl/Dextrose (Nexterone 360 Mg/200 Ml Bag) 360 mg in 200 mls @ 33.333 mls/hr IVPB TITR [facility]; Protocol Last Titration: 03/28/18 06:30 Dose: 0.5 mg/min, 16.667 mls/hr Norepinephrine Bitartrate 8, (000 mcg/ Dextrose) 500 mls @ 18.75 mls/hr IV TITR [facility]; Protocol Last Titration: 03/28/18 00:00 Dose: 0 mcg/min, 0 mls/hr Propofol (Diprivan -) 1,000,000 mcg in 100 mls @ 7.484 mls/hr IVPB TITR [facility]; Protocol Last Titration: 03/28/18 12:56 Dose: 20 mcg/kg/min, 14.969 mls/hr Vecuronium [place] 50 mg/ (Dextrose) 250 mls @ 37.42 mls/hr IVPB TITR [facility] Last Infusion: 03/28/18 09:15 Dose: 0.8 mcg/kg/min, 29.93 mls/hr Sodium Chloride (Normal Saline -) 1,000 mls @ 75 mls/hr IV ASDIR [facility] Last Admin: 03/28/18 07:30 Dose: 75 mls/hr Insulin Aspart (Novolog Vial Sliding Scale -) 1 vial SQ Q4HWA [facility]; Protocol Insulin Detemir (Levemir Vial) 30 units SQ HS [facility] Last Admin: 03/27/18 22:00 Dose: Not Given Metoprolol Tartrate (Lopressor Injection -) 2.5 mg IVPUSH Q4H PRN PRN Reason: HYPERTENSION Ondansetron HCl (Zofran Injection) 4 mg IVPUSH Q6H PRN PRN Reason: NAUSEA AND/OR VOMITING Pantoprazole Sodium (Protonix Iv) 40 mg IVPUSH DAILY [facility] Last Admin: 03/28/18 11:20 Dose: 40 mg Tamsulosin HCl (Flomax -) 0.4 mg PO DAILY [facility] ASSESSMENT AND PLAN: s/p PEA/VTach Cardiopulmonary Arrest r/o Anoxic Encephalopathy s/p Lumbar Laminectomy CAD s/p CABG +Troponins likely Demand Ischemia LV Systolic/Diastolic Dysfunction HTN DM Hypercholesterolemia CKD - complete hypothermia protocol with passive warming - continue amiodarone gtt - beta blockers - titrate pressors to maintain MAP >65 - trend cardiac enzymes - CT head when hypothermia protocol completed - hold sedation s/p hypothermia protocol - DVT/GI prophylaxis - ICU monitoring critical care time spent in reviewing chart, evaluating patient and formulating plan 35 min
[2018-03-28] MEDS ORDERED: fentaNYL CITRATE 250 MCG/5 ML VIAL ONE ×2 (13:36→20:33)
[2018-03-28] MEDS: FENTANYL INJECTION 500 MCG in DEXTROSE 5%-WATER - 90 ML IVPB SCH ×2 (14:13→21:23)
--- NOTE | 2018-03-28 14:20 | EKG ---
Test Reason : Blood Pressure : / mmHG Vent. Rate : 066 BPM Atrial Rate : 066 BPM P-R Int : 238 ms QRS Dur : 138 ms QT Int : 442 ms P-R-T Axes : 050 -38 071 degrees QTc Int : 463 ms SINUS RHYTHM WITH 1ST DEGREE A-V BLOCK LEFT AXIS DEVIATION RIGHT BUNDLE BRANCH BLOCK ABNORMAL ECG Confirmed by Raymond Wong MD ([id number]) on 03/28/2018 2:20:26 PM Referred By: Alex Rodriguez Confirmed By:Raymond Wong MD
--- NOTE | 2018-03-28 14:56 | CONS ---
DATE OF CONSULTATION: 03/28/2018 REQUESTING PHYSICIAN: Hospitalist. CHIEF COMPLAINT: Cardiovascular evaluation post cardiopulmonary arrest intraoperatively. History was predominantly obtained from the chart. No family member available. A 62-year-old male with known history of coronary artery disease status post coronary artery bypass grafting, angina pectoris, performed in 2009, diastolic left ventricular dysfunction with class 0 [employer] classification left ventricular failure, hypertensive cardiovascular disease, diabetes mellitus, hypercholesterolemia, spinal stenosis with cord compression, who was admitted urgently to [facility] for purpose of lumbar laminectomy. Intraoperatively, patient became hypoxic and subsequently had pulseless electrical activity which degenerated into ventricular tachycardia above required resuscitation and premature termination of the above-noted surgical procedure. Patient was initiated on IV amiodarone therapy. Currently, patient is intubated and sedated and unresponsive. Sinus rhythm is noted. Patient has had an echocardiogram performed by his primary all terrain vehicle technician in the [place], dated March 2017, which revealed normal left ventricular systolic function and no significant valvular pathologies. Patient had an MPI study performed in 2015, which did not reveal any evidence of myocardial ischemia. No additional history is available. REVIEW OF SYSTEMS: Not obtainable. MEDICAL THERAPY: Currently includes fentanyl 50 mcg IV push every 5 minutes as needed; amiodarone drip currently at 1 mg per minute, to be decreased to 0.5 mg per minute; propofol drip; insulin drip; IV fluid; metoprolol 25 mg once daily; Zofran 4 mg IV push every 6 hours as needed; Flomax 0.4 mg once daily. SOCIAL HISTORY: Not known. FAMILY HISTORY: Not known. ALLERGIES: Reported to CIMETIDINE and BACITRACIN. PHYSICAL EXAMINATION: Vital Signs: Blood pressure is 135/73, pulse rate is 84, temperature 98.3. Hypothermia protocol being followed. Head and Neck: Pupils are not reactive to light and accommodation. External ocular muscles cannot be evaluated. Anicteric sclerae. Negative JVD. No bruit appreciated. Chest: Bilateral scattered rhonchi. Cardiovascular: S1, S2. Regular. Grade 1-2/6 systolic ejection murmur. Abdomen: Soft, benign. Normoactive bowel sounds. Extremities: Negative edema. Chronic venous stasis changes were noted. Distal pulses 1+. EKG revealed sinus rhythm with borderline left axis deviation, right bundle branch block, nonspecific T-wave abnormality. CBC revealed white cell count 20.3, hemoglobin 12.6, platelets 182. INR 1.19. Blood gas revealed pH 7.34, pCO2 of 43.6, pO2 of 294.1, saturation 97%. Basic metabolic profile revealed sodium 144, potassium 4.0, BUN of 22, creatinine 1.3. Estimated GFR 55.75. Glucose 255. Troponin 0.26, repeat 2.86. Lactic acid 4.3. Chest x-ray was noted. ASSESSMENT: 1. Post cardiopulmonary arrest, pulseless electrical activity, ventricular tachycardia post resuscitation, currently intubated, sedated and unresponsive. 2. Postoperative day number 1 post lumbar laminectomy. 3. Anoxic brain injury to be considered in view of the above-noted clinical presentation. 4. Coronary artery disease post coronary artery bypass grafting, angina pectoris with evidence of demand ischemia. 5. Left ventricular systolic/diastolic dysfunction with class 0 [place] Heart Association classification left ventricular failure. 6. Hypertension history. 7. Diabetes mellitus history. 8. Hypercholesterolemia history. 9. Chronic kidney disease. RECOMMENDATION: 1. Hypothermia protocol as per the ICU protocol. 2. Continuation of amiodarone loading as ordered. 3. Beta-blockers, hemodynamics permitting. 4. DINAH inhibitors or angiotensin receptor blockers, hemodynamics permitting unless contraindicated. 5. Recommend aspirin resumption unless contraindicated and hold off on Plavix resumption in case additional surgical intervention is necessary. Statins unless contraindicated. 6. Echocardiography for evaluation of left ventricular size and function. 7. Neurology evaluation for patient's neurological status. CONDITION: Critical. Thank you for the kind referral. BIA OSORIO M.D. [id number]
--- NOTE | 2018-03-28 15:33 | PN ---
Physical Exam: EVENTS: - Presented to hospital yesterday for planned surgery - Per anesthesia, sudden drop in end-tidal CO2 during surgery followed by hypoxia and arrest - Per code sheet, CPR for 26 minutes total with ROSC - epinephrine x4 - Atorpine 1mg - CaCl 1g - Amiodarone 300mg - Bicarb x2 - Shock x3 - Cooling protocol initiated at midnight - RIJ placed - Started on norepinephrine; D/C'd overnight - Currently on drips: amiodarone, proprofol, vecuronium - Fentanyl drip started for presumed pain this morning - Echo completed this morning, essentially normal. No right heart strain or wall motion abnormalities, EF 55% OBJECTIVE: Vital Signs Period Temp Pulse Resp BP Sys/Martinez Pulse Ox Last 24 Hr 96.1 F-963 F 60-99 12- 98-170/58-90 100-100 General: Intubated, sedated, paralyzed. Cooling blanket in place HEENT: Eyes taped shut. RIJ in place. Cards: RRR, no murmur appreciated Pulm: Mechanically ventilated Abd: Soft, nondistended Ext: No LE edema. : Jimenez in place, draining freely Vasc: L radial a-line in place Skin: Pale Wound: Midline back incision, sutured/stapled at skin, draining dark/old blood with pooling in ioban. Clean gauze, ABDs, ioban replaced at bedside. Neuro: Sedated and paralyzed Laboratory Results - last 24 hr 03/27/18 03/27/18 03/27/18 12:29 22:00 23:19 WBC RBC Hgb Hct MCV MCH MCHC RDW Plt Count MPV Absolute Neuts (auto) Neutrophils % Neutrophils % (Manual) Band Neutrophils % Lymphocytes % Lymphocytes % (Manual) Monocytes % Monocytes % (Manual) Eosinophils % Eosinophils % (Manual) Basophils % Basophils % (Manual) Myelocytes % (Man) Promyelocytes % (Man) Blast Cells % (Manual) Nucleated RBC % Metamyelocytes Hypochromia Toxic Granulation Dohle Bodies Platelet Estimate Polychromasia Poikilocytosis Basophilic Stippling Anisocytosis Microcytosis Macrocytosis Spherocytes Sickle Cells Target Cells Tear Drop Cells Ovalocytes Stomatocytes Helmet Cells [place] Bodies [place] Cells Acanthocytes (Spur) Rouleaux Fragmented RBCs Schistocytes PT with INR INR PTT (Actin FS) Anticoagulation Therapy No Result Required. Puncture Site Arterial line ABG pH 7.25 L ABG pCO2 at Pt Temp 39.8 ABG pO2 at Pt Temp 228.0 H* ABG HCO3 16.9 L ABG O2 Sat (Measured) 99.0 H ABG O2 Content 17.2 ABG Base Excess -9.3 L Rolf Test Not applicable O2 Delivery Device Vent Oxygen Flow Rate 100 Vent Mode A/c Vent Rate 12 Mechanical Rate Yes PEEP 5.0 Pressure Support Vent 700 Sodium Potassium Chloride Carbon Dioxide Anion Gap BUN Creatinine Creat Clearance w eGFR POC Glucometer [phone] Random Glucose Lactic Acid Calcium Phosphorus Magnesium Total Bilirubin AST ALT Alkaline Phosphatase Creatine Kinase Creatine Kinase Index CK-MB (CK-2) Troponin I Total Protein Albumin 03/27/18 03/27/18 03/27/18 23:30 23:30 23:30 WBC 20.1 H RBC 4.40 Hgb 12.6 Hct 38.5 MCV 87.5 MCH 28.7 MCHC 32.7 RDW 16.1 H Plt Count 274 D MPV 7.8 Absolute Neuts (auto) 18.1 H Neutrophils % 90.1 H Neutrophils % (Manual) 88.0 H Band Neutrophils % 3.0 Lymphocytes % 3.2 L D Lymphocytes % (Manual) 4.0 L Monocytes % 6.6 Monocytes % (Manual) 5 Eosinophils % 0.0 D Eosinophils % (Manual) 0.0 Basophils % 0.1 Basophils % (Manual) 0.0 Myelocytes % (Man) 0 Promyelocytes % (Man) 0 Blast Cells % (Manual) 0 Nucleated RBC % 0 Metamyelocytes 0 Hypochromia 0 Toxic Granulation 0 Dohle Bodies 0 Platelet Estimate Normal Polychromasia 0 Poikilocytosis 0 Basophilic Stippling 0 Anisocytosis 0 Microcytosis 0 Macrocytosis 0 Spherocytes 0 Sickle Cells 0 Target Cells 0 Tear Drop Cells 0 Ovalocytes 0 Stomatocytes 0 Helmet Cells 0 [place] Bodies 0 [place] Rings 0 [place] Cells 0 Acanthocytes (Spur) 0 Rouleaux 0 Fragmented RBCs 0 Schistocytes 0 PT with INR 14.10 H INR 1.19 H PTT (Actin FS) 24.1 L Anticoagulation Therapy Puncture Site ABG pH ABG pCO2 at Pt Temp ABG pO2 at Pt Temp ABG HCO3 ABG O2 Sat (Measured) ABG O2 Content ABG Base Excess Rolf Test O2 Delivery Device Oxygen Flow Rate Vent Mode Vent Rate Mechanical Rate PEEP Pressure Support Vent Sodium Potassium Chloride Carbon Dioxide Anion Gap BUN Creatinine Creat Clearance w eGFR POC Glucometer Random Glucose Lactic Acid Calcium Phosphorus Magnesium Total Bilirubin AST ALT Alkaline Phosphatase Creatine Kinase Creatine Kinase Index CK-MB (CK-2) Troponin I Cancelled Total Protein Albumin 03/27/18 03/27/18 03/27/18 23:30 23:30 23:30 WBC RBC Hgb Hct MCV MCH MCHC RDW Plt Count MPV Absolute Neuts (auto) Neutrophils % Neutrophils % (Manual) Band Neutrophils % Lymphocytes % Lymphocytes % (Manual) Monocytes % Monocytes % (Manual) Eosinophils % Eosinophils % (Manual) Basophils % Basophils % (Manual) Myelocytes % (Man) Promyelocytes % (Man) Blast Cells % (Manual) Nucleated RBC % Metamyelocytes Hypochromia Toxic Granulation Dohle Bodies Platelet Estimate Polychromasia Poikilocytosis Basophilic Stippling Anisocytosis Microcytosis Macrocytosis Spherocytes Sickle Cells Target Cells Tear Drop Cells Ovalocytes Stomatocytes Helmet Cells [place] Bodies [place] Cells Acanthocytes (Spur) Rouleaux Fragmented RBCs Schistocytes PT with INR INR PTT (Actin FS) Anticoagulation Therapy Puncture Site ABG pH ABG pCO2 at Pt Temp ABG pO2 at Pt Temp ABG HCO3 ABG O2 Sat (Measured) ABG O2 Content ABG Base Excess Rolf Test O2 Delivery Device Oxygen Flow Rate Vent Mode Vent Rate Mechanical Rate PEEP Pressure Support Vent Sodium 140 Potassium 4.9 Chloride 105 Carbon Dioxide 20 L Anion Gap 15 BUN 19 H Creatinine 1.3 Creat Clearance w eGFR 55.75 POC Glucometer Random Glucose 336 H* Lactic Acid 6.0 H* Calcium 8.9 Phosphorus 7.2 H Magnesium 2.0 Total Bilirubin 1.2 H AST 180 H ALT 117 H Alkaline Phosphatase 83 Creatine Kinase 469 H Creatine Kinase Index 1.4 CK-MB (CK-2) 6.8 H Troponin I 0.26 H Total Protein 5.2 L Albumin 2.7 L 03/28/18 03/28/18 03/28/18 00:52 02:06 04:18 WBC RBC Hgb Hct MCV MCH MCHC RDW Plt Count MPV Absolute Neuts (auto) Neutrophils % Neutrophils % (Manual) Band Neutrophils % Lymphocytes % Lymphocytes % (Manual) Monocytes % Monocytes % (Manual) Eosinophils % Eosinophils % (Manual) Basophils % Basophils % (Manual) Myelocytes % (Man) Promyelocytes % (Man) Blast Cells % (Manual) Nucleated RBC % Metamyelocytes Hypochromia Toxic Granulation Dohle Bodies Platelet Estimate Polychromasia Poikilocytosis Basophilic Stippling Anisocytosis Microcytosis Macrocytosis Spherocytes Sickle Cells Target Cells Tear Drop Cells Ovalocytes Stomatocytes Helmet Cells [place] Bodies [place] Cells Acanthocytes (Spur) Rouleaux Fragmented RBCs Schistocytes PT with INR INR PTT (Actin FS) Anticoagulation Therapy Puncture Site ABG pH ABG pCO2 at Pt Temp ABG pO2 at Pt Temp ABG HCO3 ABG O2 Sat (Measured) ABG O2 Content ABG Base Excess Rolf Test O2 Delivery Device Oxygen Flow Rate Vent Mode Vent Rate Mechanical Rate PEEP Pressure Support Vent Sodium Potassium Chloride Carbon Dioxide Anion Gap BUN Creatinine Creat Clearance w eGFR POC Glucometer 361.63502 366.52465 380.26145 Random Glucose Lactic Acid Calcium Phosphorus Magnesium Total Bilirubin AST ALT Alkaline Phosphatase Creatine Kinase Creatine Kinase Index CK-MB (CK-2) Troponin I Total Protein Albumin 03/28/18 03/28/18 03/28/18 05:30 05:30 05:30 WBC 20.3 H RBC 4.43 Hgb 12.6 Hct 38.3 MCV 86.6 MCH 28.6 MCHC 33.0 RDW 15.8 Plt Count 182 D MPV 7.4 L Absolute Neuts (auto) 18.7 H Neutrophils % 92.4 H Neutrophils % (Manual) 90.7 H Band Neutrophils % 3.1 Lymphocytes % 3.5 L Lymphocytes % (Manual) 1.0 L D Monocytes % 4.0 Monocytes % (Manual) 4 Eosinophils % 0.0 Eosinophils % (Manual) 0.0 Basophils % 0.1 Basophils % (Manual) 1.1 D Myelocytes % (Man) 0 Promyelocytes % (Man) 0 Blast Cells % (Manual) 0 Nucleated RBC % 0 Metamyelocytes 0 Hypochromia 0 Toxic Granulation 0 Dohle Bodies 0 Platelet Estimate Normal Polychromasia 0 Poikilocytosis 0 Basophilic Stippling 0 Anisocytosis 0 Microcytosis 0 Macrocytosis 0 Spherocytes 0 Sickle Cells 0 Target Cells 0 Tear Drop Cells 0 Ovalocytes 0 Stomatocytes 0 Helmet Cells 0 [place] Bodies 0 [place] 0 [place] Cells 0 Acanthocytes (Spur) 0 Rouleaux 0 Fragmented RBCs 0 Schistocytes 0 PT with INR INR PTT (Actin FS) Anticoagulation Therapy Puncture Site ABG pH ABG pCO2 at Pt Temp ABG pO2 at Pt Temp ABG HCO3 ABG O2 Sat (Measured) ABG O2 Content ABG Base Excess Rolf Test O2 Delivery Device Oxygen Flow Rate Vent Mode Vent Rate Mechanical Rate PEEP Pressure Support Vent Sodium 144 Potassium 4.0 Chloride 110 H Carbon Dioxide 22 Anion Gap 12 BUN 22 H Creatinine 1.3 Creat Clearance w eGFR 55.75 POC Glucometer Random Glucose 255 H Lactic Acid 4.3 H* Calcium 9.0 Phosphorus 3.9 Magnesium 2.0 Total Bilirubin 0.7 AST 204 H ALT 115 H Alkaline Phosphatase 78 Creatine Kinase Creatine Kinase Index CK-MB (CK-2) Troponin I 2.86 H* Total Protein 5.3 L Albumin 2.8 L 03/28/18 03/28/18 03/28/18 06:30 06:46 08:00 WBC RBC Hgb Hct MCV MCH MCHC RDW Plt Count MPV Absolute Neuts (auto) Neutrophils % Neutrophils % (Manual) Band Neutrophils % Lymphocytes % Lymphocytes % (Manual) Monocytes % Monocytes % (Manual) Eosinophils % Eosinophils % (Manual) Basophils % Basophils % (Manual) Myelocytes % (Man) Promyelocytes % (Man) Blast Cells % (Manual) Nucleated RBC % Metamyelocytes Hypochromia Toxic Granulation Dohle Bodies Platelet Estimate Polychromasia Poikilocytosis Basophilic Stippling Anisocytosis Microcytosis Macrocytosis Spherocytes Sickle Cells Target Cells Tear Drop Cells Ovalocytes Stomatocytes Helmet Cells [place] Bodies [place] Cells Acanthocytes (Spur) Rouleaux Fragmented RBCs Schistocytes PT with INR INR PTT (Actin FS) Anticoagulation Therapy Puncture Site ABG pH ABG pCO2 at Pt Temp ABG pO2 at Pt Temp ABG HCO3 ABG O2 Sat (Measured) ABG O2 Content ABG Base Excess Rolf Test O2 Delivery Device Oxygen Flow Rate Vent Mode Vent Rate Mechanical Rate PEEP Pressure Support Vent Sodium Potassium Chloride Carbon Dioxide Anion Gap BUN Creatinine Creat Clearance w eGFR POC Glucometer 295.75597 208.37579 Random Glucose Lactic Acid Calcium Phosphorus Magnesium Total Bilirubin AST ALT Alkaline Phosphatase Creatine Kinase Creatine Kinase Index CK-MB (CK-2) Troponin I Cancelled Total Protein Albumin 10/02/18 10/02/18 10/02/18 09:30 11:00 11:18 WBC RBC Hgb Hct MCV MCH MCHC RDW Plt Count MPV Absolute Neuts (auto) Neutrophils % Neutrophils % (Manual) Band Neutrophils % Lymphocytes % Lymphocytes % (Manual) Monocytes % Monocytes % (Manual) Eosinophils % Eosinophils % (Manual) Basophils % Basophils % (Manual) Myelocytes % (Man) Promyelocytes % (Man) Blast Cells % (Manual) Nucleated RBC % Metamyelocytes Hypochromia Toxic Granulation Dohle Bodies Platelet Estimate Polychromasia Poikilocytosis Basophilic Stippling Anisocytosis Microcytosis Macrocytosis Spherocytes Sickle Cells Target Cells Tear Drop Cells Ovalocytes Stomatocytes Helmet Cells [place] Bodies [place] Cells Acanthocytes (Spur) Rouleaux Fragmented RBCs Schistocytes PT with INR INR PTT (Actin FS) Anticoagulation Therapy No Result Required. Puncture Site Right radial ABG pH 7.34 L ABG pCO2 at Pt Temp 43.6 ABG pO2 at Pt Temp 94.1 D ABG HCO3 22.9 ABG O2 Sat (Measured) 97.0 ABG O2 Content 17.9 ABG Base Excess -2.4 L Rolf Test Positive O2 Delivery Device Mech vent Oxygen Flow Rate 40% Vent Mode A/c Vent Rate 20 Mechanical Rate Yes PEEP 5.0 Pressure Support Vent 450 Sodium Potassium Chloride Carbon Dioxide Anion Gap BUN Creatinine Creat Clearance w eGFR POC Glucometer 167.95488 120.75319 Random Glucose Lactic Acid Calcium Phosphorus Magnesium Total Bilirubin AST ALT Alkaline Phosphatase Creatine Kinase Creatine Kinase Index CK-MB (CK-2) Troponin I Total Protein Albumin 03/28/18 03/28/18 12:30 14:08 WBC RBC Hgb Hct MCV MCH MCHC RDW Plt Count MPV Absolute Neuts (auto) Neutrophils % Neutrophils % (Manual) Band Neutrophils % Lymphocytes % Lymphocytes % (Manual) Monocytes % Monocytes % (Manual) Eosinophils % Eosinophils % (Manual) Basophils % Basophils % (Manual) Myelocytes % (Man) Promyelocytes % (Man) Blast Cells % (Manual) Nucleated RBC % Metamyelocytes Hypochromia Toxic Granulation Dohle Bodies Platelet Estimate Polychromasia Poikilocytosis Basophilic Stippling Anisocytosis Microcytosis Macrocytosis Spherocytes Sickle Cells Target Cells Tear Drop Cells Ovalocytes Stomatocytes Helmet Cells [place] Bodies [place] Cells Acanthocytes (Spur) Rouleaux Fragmented RBCs Schistocytes PT with INR INR PTT (Actin FS) Anticoagulation Therapy Puncture Site ABG pH ABG pCO2 at Pt Temp ABG pO2 at Pt Temp ABG HCO3 ABG O2 Sat (Measured) ABG O2 Content ABG Base Excess Rolf Test O2 Delivery Device Oxygen Flow Rate Vent Mode Vent Rate Mechanical Rate PEEP Pressure Support Vent Sodium Potassium Chloride Carbon Dioxide Anion Gap BUN Creatinine Creat Clearance w eGFR POC Glucometer 174.30396 Random Glucose Lactic Acid Calcium Phosphorus Magnesium Total Bilirubin AST ALT Alkaline Phosphatase Creatine Kinase Creatine Kinase Index CK-MB (CK-2) Troponin I 4.67 H* Total Protein Albumin Active Medications Generic Name Dose Route Start Last Admin Trade Name Freq PRN Reason Stop Dose Admin Artificial Tears 1 drop 03/28/18 07:59 03/28/18 12:56 Artificial Tears OU 1 drop BID PRN Administration DRY EYES Fentanyl 50 mcg 03/27/18 14:05 Sublimaze Injection - IVPUSH Q5M PRN PAIN-PACU ORDER X 4 DOSES ONLY Glycerin 1 each 03/27/18 21:55 Glycerin Suppository Adult - RC DAILY PRN CONSTIPATION Amiodarone HCl/Dextrose 360 mg in 200 mls @ 33.333 mls/hr 03/27/18 21:15 08/14 06:30 Nexterone 360 Mg/200 Ml Bag IVPB 0.5 mg/min TITR SYLVIA 16.667 mls/hr Titration Protocol 1 MG/MIN Norepinephrine Bitartrate 8, 500 mls @ 18.75 mls/hr 03/27/18 22:30 03/28/18 00:00 000 mcg/ Dextrose IV 0 mcg/min TITR SYLVIA 0 mls/hr Titration Protocol 5 MCG/MIN Propofol 1,000,000 mcg in 100 mls @ 7.484 mls/hr 03/28/18 00:30 03/28/18 12: 56 Diprivan - IVPB 20 mcg/kg/min TITR SYLVIA 14.969 mls/hr Titration Protocol 10 MCG/KG/MIN Vecuronium [place] 50 mg/ 250 mls @ 37.42 mls/hr 03/28/18 05:30 03/28/18 09: 15 Dextrose IVPB 0.8 mcg/kg/min TITR SYLVIA 29.93 mls/hr Infusion 1 MCG/KG/MIN Sodium Chloride 1,000 mls @ 75 mls/hr 03/28/18 07:16 03/28/18 07:30 Normal Saline - IV 75 mls/hr ASDIR SYLVIA Administration Fentanyl 500 mcg/ Dextrose 100 mls @ 10 mls/hr 03/28/18 13:30 03/28/18 14:13 IVPB 03/29/18 13:29 50 mcg/hr TITR SYLVIA 10 mls/hr Administration 50 MCG/HR Insulin Aspart 1 vial 03/28/18 14:00 03/28/18 14:16 Novolog Vial Sliding Scale - SQ 2 units Q4HWA SYLVIA Administration Protocol Insulin Detemir 30 units 03/27/18 22:00 03/27/18 22:00 Levemir Vial SQ Not Given HS SYLVIA Metoprolol Tartrate 2.5 mg 03/28/18 12:29 Lopressor Injection - IVPUSH Q4H PRN HYPERTENSION Ondansetron HCl 4 mg 03/27/18 21:56 Zofran Injection IVPUSH Q6H PRN NAUSEA AND/OR VOMITING Pantoprazole Sodium 40 mg 03/28/18 10:30 03/28/18 11:20 Protonix Iv IVPUSH 40 mg DAILY SYLVIA Administration Tamsulosin HCl 0.4 mg 03/28/18 10:00 Flomax - PO DAILY SYLVIA ASSESSMENT/PLAN: Marco Land is a 62yo man with a PMH of CAD s/p CABG, HTN, HLD, IDDM, chronic back pain due to spinal stnosis with rapid neurological decline. He presented yesterday for a planned spinal surgery and suffered a cardac arrest in the OR. ROSC was achieved after 26 minutes of CPR, and he was transferred to the ICU. Cooling protocol was initiated at midnight last night. He remains in critical condition in the ICU. Neuro: - Concern for hypoxic brain injury given length of code yesterday - Pupils noted to be fixed last night, probably due to medically induced paralysis - Continue vecuronium drip, propofol drip - Fentanyl drip for presumed pain following CPR and surgery - Neuro consulted. Recommend CT head when able CV: - s/p cardiac arrest. H/o CAD, CABG, HTN - Cardiology following - Cooling protocol started at midnight, to stop after 24hrs - Continue amiodarone drip - Echo completed, relatively normal, EF 55%, no right heart strain, no wall motion abnormalities - Trending troponin Q6hr. 2.86 this morning, 4.67 at 11:30am - Repeat EKG without acute changes this afternoon - Per cards recommendation, restarted metoprolol. Cannot take PO, so receiving 2.5mg Q4hr Pulm: - Mechanically ventilated - RR increased to 20, currently on 40% FiO2 - CXR for tomorrow morning - IS 10x per hour Heme: - Holding home ASA and plavix - Hgb stable postoperatively at 12.6 - Monitor daily CBC GI: - Emesis overnight - NGT placed. - Continue NPO. - Daily PPI while intubated and with NGT - Plan to check LFTs in morning Renal: - Jimenez in place - MIAN with Cr elevated to 1.3 from baseline 0.6-0.8. Likely secondary to poor perfusion during arrest. Urine lytes ordered to evaluate. - Holding home flomax ID: - Leukocytosis to 20.3 likely stress response to surgery, CPR, arrest - Monitor morning CBC Endo: - h/o IDDM - Was on insulin drip overnight, transitioned to Q4hr sliding scale this morning - Monitor blood glucose Q4hr Musc: - Continue vecuronium drip - Restraints in place per protocol - Mid-back incision with skin sutures but layered closure not completed due to cardiac arrest in OR, need to flip patient from prone position emergently. Wound with some old, dark blood collecting under dressing this morning but no concerns for active bleeding. - Monitor wound Q4hr - Dressing to be replaced or reinforced as needed for oozing - Will contact Dr Rodriguez as needed if active bleeding is suspected PPx: - No pharmacologic DVT ppx postoperatively. SCDs in place. - PPI daily FEN: - NPO. NGT in place - NS@125 - Replete lytes PRN Dispo: - Critically ill patient requiring ongoing ICU-level care Seen and discussed with Dr Bright. China Randle PGY1 Visit type - Emergency Visit Emergency Visit: No - New Patient This patient is new to me today: Yes Date on this admission: 03/28/18 - Critical Care Critical Care patient: Yes Total Critical Care Time (in minutes): 45 Critical Care Statement: The care of this patient involved high complexity decision making to prevent further life threatening deterioration of the patient 's condition and/or to evaluate & treat vital organ system(s) failure or risk of failure.
[2018-03-28] MEDS ORDERED: VECURONIUM BROMIDE 10 MG VIAL ONE (16:11)
[2018-03-28] MEDS: METOPROLOL TARTRATE 5 MG/5 ML VIAL IVPUSH PRN ×2 (17:17→21:24)
--- NOTE | 2018-03-28 17:19 | PN ---
Physical Exam: SUBJECTIVE: Patient seen and examined at bedside this morning. Intubated, sedated and paralyzed. On cooling blankets. HPI: Patient is a 62 year old male with past medical history of chronic low back pain , CAD s/p CABG on plavix (held prior to surgery), HTN, HLD, DM, and BPH presented as outpatient for planned L1-S1 laminectomy and T12-S1 posterior instrumented spinal fusion. No intra-operative surgical complications. Intra- operatively, just prior to bone grafting and wound closure, patient desaturated. Wound was closed and patient was flipped to supine position. At this point, patient was noted to be pulseless, code 99 called, ACLS protocol followed, including high quality CPR and delivering shocks administered for about 25 minutes. ROSC was achieved. Patient received central line and was transferred to ICU. Hypothermia protocol initiated at midnight. Patient started on Norepinephrine, which was discontinued overnight. Patient put on amiodarone, propofol and vecuronium drips. Fentanyl drip started. OBJECTIVE: Vital Signs Period Temp Pulse Resp BP Sys/Martinez Pulse Ox Last 24 Hr 96.1 F-963 F 60-99 12-26 98-191/58-90 100-100 GENERAL: The patient is intubated, sedated and paralyzed. On cooling blankets. EYES: Eyes taped shut. LUNGS: Mechanically ventilated. HEART: Regular rate and rhythm, S1, S2 without murmur, rub or gallop. ABDOMEN: Soft,nondistended. EXTREMITIES: 2+ pulses, warm, well-perfused, no edema. L radial A-line in place Laboratory Results - last 24 hr 03/27/18 03/27/18 03/27/18 22:00 23:19 23:30 WBC RBC Hgb Hct MCV MCH MCHC RDW Plt Count MPV Absolute Neuts (auto) Neutrophils % Neutrophils % (Manual) Band Neutrophils % Lymphocytes % Lymphocytes % (Manual) Monocytes % Monocytes % (Manual) Eosinophils % Eosinophils % (Manual) Basophils % Basophils % (Manual) Myelocytes % (Man) Promyelocytes % (Man) Blast Cells % (Manual) Nucleated RBC % Metamyelocytes Hypochromia Toxic Granulation Dohle Bodies Platelet Estimate Polychromasia Poikilocytosis Basophilic Stippling Anisocytosis Microcytosis Macrocytosis Spherocytes Sickle Cells Target Cells Tear Drop Cells Ovalocytes Stomatocytes Helmet Cells [place] Bodies [place] Rings [place] Cells Acanthocytes (Spur) Rouleaux Fragmented RBCs Schistocytes PT with INR 14.10 H INR 1.19 H PTT (Actin FS) 24.1 L Anticoagulation Therapy No Result Required. Puncture Site Arterial line ABG pH 7.25 L ABG pCO2 at Pt Temp 39.8 ABG pO2 at Pt Temp 228.0 H* ABG HCO3 16.9 L ABG O2 Sat (Measured) 99.0 H ABG O2 Content 17.2 ABG Base Excess -9.3 L Rolf Test Not applicable O2 Delivery Device Vent Oxygen Flow Rate 100 Vent Mode A/c Vent Rate 12 Mechanical Rate Yes PEEP 5.0 Pressure Support Vent 700 Sodium Potassium Chloride Carbon Dioxide Anion Gap BUN Creatinine Creat Clearance w eGFR POC Glucometer [phone] Random Glucose Lactic Acid Calcium Phosphorus Magnesium Total Bilirubin AST ALT Alkaline Phosphatase Creatine Kinase Creatine Kinase Index CK-MB (CK-2) Troponin I Total Protein Albumin 03/27/18 03/27/18 03/27/18 23:30 23:30 23:30 WBC 20.1 H RBC 4.40 Hgb 12.6 Hct 38.5 MCV 87.5 MCH 28.7 MCHC 32.7 RDW 16.1 H Plt Count 274 D MPV 7.8 Absolute Neuts (auto) 18.1 H Neutrophils % 90.1 H Neutrophils % (Manual) 88.0 H Band Neutrophils % 3.0 Lymphocytes % 3.2 L D Lymphocytes % (Manual) 4.0 L Monocytes % 6.6 Monocytes % (Manual) 5 Eosinophils % 0.0 D Eosinophils % (Manual) 0.0 Basophils % 0.1 Basophils % (Manual) 0.0 Myelocytes % (Man) 0 Promyelocytes % (Man) 0 Blast Cells % (Manual) 0 Nucleated RBC % 0 Metamyelocytes 0 Hypochromia 0 Toxic Granulation 0 Dohle Bodies 0 Platelet Estimate Normal Polychromasia 0 Poikilocytosis 0 Basophilic Stippling 0 Anisocytosis 0 Microcytosis 0 Macrocytosis 0 Spherocytes 0 Sickle Cells 0 Target Cells 0 Tear Drop Cells 0 Ovalocytes 0 Stomatocytes 0 Helmet Cells 0 [place] Bodies 0 [place] Rings 0 [place] Cells 0 Acanthocytes (Spur) 0 Rouleaux 0 Fragmented RBCs 0 Schistocytes 0 PT with INR INR PTT (Actin FS) Anticoagulation Therapy Puncture Site ABG pH ABG pCO2 at Pt Temp ABG pO2 at Pt Temp ABG HCO3 ABG O2 Sat (Measured) ABG O2 Content ABG Base Excess Rolf Test O2 Delivery Device Oxygen Flow Rate Vent Mode Vent Rate Mechanical Rate PEEP Pressure Support Vent Sodium 140 Potassium 4.9 Chloride 105 Carbon Dioxide 20 L Anion Gap 15 BUN 19 H Creatinine 1.3 Creat Clearance w eGFR 55.75 POC Glucometer Random Glucose 336 H* Lactic Acid Calcium 8.9 Phosphorus 7.2 H Magnesium 2.0 Total Bilirubin 1.2 H AST 180 H ALT 117 H Alkaline Phosphatase 83 Creatine Kinase Creatine Kinase Index CK-MB (CK-2) Troponin I Cancelled Total Protein 5.2 L Albumin 2.7 L 03/27/18 03/27/18 03/28/18 23:30 23:30 00:52 WBC RBC Hgb Hct MCV MCH MCHC RDW Plt Count MPV Absolute Neuts (auto) Neutrophils % Neutrophils % (Manual) Band Neutrophils % Lymphocytes % Lymphocytes % (Manual) Monocytes % Monocytes % (Manual) Eosinophils % Eosinophils % (Manual) Basophils % Basophils % (Manual) Myelocytes % (Man) Promyelocytes % (Man) Blast Cells % (Manual) Nucleated RBC % Metamyelocytes Hypochromia Toxic Granulation Dohle Bodies Platelet Estimate Polychromasia Poikilocytosis Basophilic Stippling Anisocytosis Microcytosis Macrocytosis Spherocytes Sickle Cells Target Cells Tear Drop Cells Ovalocytes Stomatocytes Helmet Cells [place] Bodies [place] Rings [place] Cells Acanthocytes (Spur) Rouleaux Fragmented RBCs Schistocytes PT with INR INR PTT (Actin FS) Anticoagulation Therapy Puncture Site ABG pH ABG pCO2 at Pt Temp ABG pO2 at Pt Temp ABG HCO3 ABG O2 Sat (Measured) ABG O2 Content ABG Base Excess Rolf Test O2 Delivery Device Oxygen Flow Rate Vent Mode Vent Rate Mechanical Rate PEEP Pressure Support Vent Sodium Potassium Chloride Carbon Dioxide Anion Gap BUN Creatinine Creat Clearance w eGFR POC Glucometer [phone] Random Glucose Lactic Acid 6.0 H* Calcium Phosphorus Magnesium Total Bilirubin AST ALT Alkaline Phosphatase Creatine Kinase 469 H Creatine Kinase Index 1.4 CK-MB (CK-2) 6.8 H Troponin I 0.26 H Total Protein Albumin 03/28/18 03/28/18 03/28/18 02:06 04:18 05:30 WBC RBC Hgb Hct MCV MCH MCHC RDW Plt Count MPV Absolute Neuts (auto) Neutrophils % Neutrophils % (Manual) Band Neutrophils % Lymphocytes % Lymphocytes % (Manual) Monocytes % Monocytes % (Manual) Eosinophils % Eosinophils % (Manual) Basophils % Basophils % (Manual) Myelocytes % (Man) Promyelocytes % (Man) Blast Cells % (Manual) Nucleated RBC % Metamyelocytes Hypochromia Toxic Granulation Dohle Bodies Platelet Estimate Polychromasia Poikilocytosis Basophilic Stippling Anisocytosis Microcytosis Macrocytosis Spherocytes Sickle Cells Target Cells Tear Drop Cells Ovalocytes Stomatocytes Helmet Cells [place] Bodies [place] Rings [place] Cells Acanthocytes (Spur) Rouleaux Fragmented RBCs Schistocytes PT with INR INR PTT (Actin FS) Anticoagulation Therapy Puncture Site ABG pH ABG pCO2 at Pt Temp ABG pO2 at Pt Temp ABG HCO3 ABG O2 Sat (Measured) ABG O2 Content ABG Base Excess Rolf Test O2 Delivery Device Oxygen Flow Rate Vent Mode Vent Rate Mechanical Rate PEEP Pressure Support Vent Sodium 144 Potassium 4.0 Chloride 110 H Carbon Dioxide 22 Anion Gap 12 BUN 22 H Creatinine 1.3 Creat Clearance w eGFR 55.75 POC Glucometer [phone] Random Glucose 255 H Lactic Acid Calcium 9.0 Phosphorus 3.9 Magnesium 2.0 Total Bilirubin 0.7 AST 204 H ALT 115 H Alkaline Phosphatase 78 Creatine Kinase Creatine Kinase Index CK-MB (CK-2) Troponin I 2.86 H* Total Protein 5.3 L Albumin 2.8 L 03/28/18 03/28/18 03/28/18 05:30 05:30 06:30 WBC 20.3 H RBC 4.43 Hgb 12.6 Hct 38.3 MCV 86.6 MCH 28.6 MCHC 33.0 RDW 15.8 Plt Count 182 D MPV 7.4 L Absolute Neuts (auto) 18.7 H Neutrophils % 92.4 H Neutrophils % (Manual) 90.7 H Band Neutrophils % 3.1 Lymphocytes % 3.5 L Lymphocytes % (Manual) 1.0 L D Monocytes % 4.0 Monocytes % (Manual) 4 Eosinophils % 0.0 Eosinophils % (Manual) 0.0 Basophils % 0.1 Basophils % (Manual) 1.1 D Myelocytes % (Man) 0 Promyelocytes % (Man) 0 Blast Cells % (Manual) 0 Nucleated RBC % 0 Metamyelocytes 0 Hypochromia 0 Toxic Granulation 0 Dohle Bodies 0 Platelet Estimate Normal Polychromasia 0 Poikilocytosis 0 Basophilic Stippling 0 Anisocytosis 0 Microcytosis 0 Macrocytosis 0 Spherocytes 0 Sickle Cells 0 Target Cells 0 Tear Drop Cells 0 Ovalocytes 0 Stomatocytes 0 Helmet Cells 0 [place] Bodies 0 [place] Rings 0 [place] Cells 0 Acanthocytes (Spur) 0 Rouleaux 0 Fragmented RBCs 0 Schistocytes 0 PT with INR INR PTT (Actin FS) Anticoagulation Therapy Puncture Site ABG pH ABG pCO2 at Pt Temp ABG pO2 at Pt Temp ABG HCO3 ABG O2 Sat (Measured) ABG O2 Content ABG Base Excess Rolf Test O2 Delivery Device Oxygen Flow Rate Vent Mode Vent Rate Mechanical Rate PEEP Pressure Support Vent Sodium Potassium Chloride Carbon Dioxide Anion Gap BUN Creatinine Creat Clearance w eGFR POC Glucometer Random Glucose Lactic Acid 4.3 H* Calcium Phosphorus Magnesium Total Bilirubin AST ALT Alkaline Phosphatase Creatine Kinase Creatine Kinase Index CK-MB (CK-2) Troponin I Cancelled Total Protein Albumin 03/28/18 03/28/18 03/28/18 06:46 08:00 09:30 WBC RBC Hgb Hct MCV MCH MCHC RDW Plt Count MPV Absolute Neuts (auto) Neutrophils % Neutrophils % (Manual) Band Neutrophils % Lymphocytes % Lymphocytes % (Manual) Monocytes % Monocytes % (Manual) Eosinophils % Eosinophils % (Manual) Basophils % Basophils % (Manual) Myelocytes % (Man) Promyelocytes % (Man) Blast Cells % (Manual) Nucleated RBC % Metamyelocytes Hypochromia Toxic Granulation Dohle Bodies Platelet Estimate Polychromasia Poikilocytosis Basophilic Stippling Anisocytosis Microcytosis Macrocytosis Spherocytes Sickle Cells Target Cells Tear Drop Cells Ovalocytes Stomatocytes Helmet Cells [place] Bodies [place] Rings [place] Cells Acanthocytes (Spur) Rouleaux Fragmented RBCs Schistocytes PT with INR INR PTT (Actin FS) Anticoagulation Therapy Puncture Site ABG pH ABG pCO2 at Pt Temp ABG pO2 at Pt Temp ABG HCO3 ABG O2 Sat (Measured) ABG O2 Content ABG Base Excess Rolf Test O2 Delivery Device Oxygen Flow Rate Vent Mode Vent Rate Mechanical Rate PEEP Pressure Support Vent Sodium Potassium Chloride Carbon Dioxide Anion Gap BUN Creatinine Creat Clearance w eGFR POC Glucometer 295.28499 208.36302 167.00669 Random Glucose Lactic Acid Calcium Phosphorus Magnesium Total Bilirubin AST ALT Alkaline Phosphatase Creatine Kinase Creatine Kinase Index CK-MB (CK-2) Troponin I Total Protein Albumin 03/28/18 03/28/18 03/28/18 11:00 11:18 12:30 WBC RBC Hgb Hct MCV MCH MCHC RDW Plt Count MPV Absolute Neuts (auto) Neutrophils % Neutrophils % (Manual) Band Neutrophils % Lymphocytes % Lymphocytes % (Manual) Monocytes % Monocytes % (Manual) Eosinophils % Eosinophils % (Manual) Basophils % Basophils % (Manual) Myelocytes % (Man) Promyelocytes % (Man) Blast Cells % (Manual) Nucleated RBC % Metamyelocytes Hypochromia Toxic Granulation Dohle Bodies Platelet Estimate Polychromasia Poikilocytosis Basophilic Stippling Anisocytosis Microcytosis Macrocytosis Spherocytes Sickle Cells Target Cells Tear Drop Cells Ovalocytes Stomatocytes Helmet Cells [place] Bodies [place] Rings [place] Cells Acanthocytes (Spur) Rouleaux Fragmented RBCs Schistocytes PT with INR INR PTT (Actin FS) Anticoagulation Therapy No Result Required. Puncture Site Right radial ABG pH 7.34 L ABG pCO2 at Pt Temp 43.6 ABG pO2 at Pt Temp 94.1 D ABG HCO3 22.9 ABG O2 Sat (Measured) 97.0 ABG O2 Content 17.9 ABG Base Excess -2.4 L Rolf Test Positive O2 Delivery Device Mech vent Oxygen Flow Rate 40% Vent Mode A/c Vent Rate 20 Mechanical Rate Yes PEEP 5.0 Pressure Support Vent 450 Sodium Potassium Chloride Carbon Dioxide Anion Gap BUN Creatinine Creat Clearance w eGFR POC Glucometer 120.10689 Random Glucose Lactic Acid Calcium Phosphorus Magnesium Total Bilirubin AST ALT Alkaline Phosphatase Creatine Kinase Creatine Kinase Index CK-MB (CK-2) Troponin I 4.67 H* Total Protein Albumin 03/28/18 14:08 WBC RBC Hgb Hct MCV MCH MCHC RDW Plt Count MPV Absolute Neuts (auto) Neutrophils % Neutrophils % (Manual) Band Neutrophils % Lymphocytes % Lymphocytes % (Manual) Monocytes % Monocytes % (Manual) Eosinophils % Eosinophils % (Manual) Basophils % Basophils % (Manual) Myelocytes % (Man) Promyelocytes % (Man) Blast Cells % (Manual) Nucleated RBC % Metamyelocytes Hypochromia Toxic Granulation Dohle Bodies Platelet Estimate Polychromasia Poikilocytosis Basophilic Stippling Anisocytosis Microcytosis Macrocytosis Spherocytes Sickle Cells Target Cells Tear Drop Cells Ovalocytes Stomatocytes Helmet Cells [place] Bodies [place] Rings [place] Cells Acanthocytes (Spur) Rouleaux Fragmented RBCs Schistocytes PT with INR INR PTT (Actin FS) Anticoagulation Therapy Puncture Site ABG pH ABG pCO2 at Pt Temp ABG pO2 at Pt Temp ABG HCO3 ABG O2 Sat (Measured) ABG O2 Content ABG Base Excess Rolf Test O2 Delivery Device Oxygen Flow Rate Vent Mode Vent Rate Mechanical Rate PEEP Pressure Support Vent Sodium Potassium Chloride Carbon Dioxide Anion Gap BUN Creatinine Creat Clearance w eGFR POC Glucometer [phone] Random Glucose Lactic Acid Calcium Phosphorus Magnesium Total Bilirubin AST ALT Alkaline Phosphatase Creatine Kinase Creatine Kinase Index CK-MB (CK-2) Troponin I Total Protein Albumin Active Medications Generic Name Dose Route Start Last Admin Trade Name Freq PRN Reason Stop Dose Admin Artificial Tears 1 drop 03/28/18 07:59 03/28/18 12:56 Artificial Tears OU 1 drop BID PRN Administration DRY EYES Fentanyl 50 mcg 03/27/18 14:05 Sublimaze Injection - IVPUSH Q5M PRN PAIN-PACU ORDER X 4 DOSES ONLY Glycerin 1 each 03/27/18 21:55 Glycerin Suppository Adult - RC DAILY PRN CONSTIPATION Amiodarone HCl/Dextrose 360 mg in 200 mls @ 33.333 mls/hr 03/27/18 21:15 08/14 16:27 Nexterone 360 Mg/200 Ml Bag IVPB 0.5 mg/min TITR SYLVIA 16.667 mls/hr Administration Protocol 1 MG/MIN Propofol 1,000,000 mcg in 100 mls @ 7.484 mls/hr 03/28/18 00:30 03/28/18 12: 56 Diprivan - IVPB 20 mcg/kg/min TITR SYLVIA 14.969 mls/hr Titration Protocol 10 MCG/KG/MIN Vecuronium [place] 50 mg/ 250 mls @ 37.42 mls/hr 03/28/18 05:30 03/28/18 16: 26 Dextrose IVPB 0.8 mcg/kg/min TITR SYLVIA 29.93 mls/hr Administration 1 MCG/KG/MIN Sodium Chloride 1,000 mls @ 75 mls/hr 03/28/18 07:16 03/28/18 07:30 Normal Saline - IV 75 mls/hr ASDIR SYLVIA Administration Fentanyl 500 mcg/ Dextrose 100 mls @ 10 mls/hr 03/28/18 13:30 03/28/18 16:36 IVPB 03/29/18 13:29 75 mcg/hr TITR SYLVIA 15 mls/hr Titration 50 MCG/HR Insulin Aspart 1 vial 03/28/18 14:00 03/28/18 14:16 Novolog Vial Sliding Scale - SQ 2 units Q4HWA SYLVIA Administration Protocol Insulin Detemir 30 units 03/27/18 22:00 03/27/18 22:00 Levemir Vial SQ Not Given HS SYLVIA Metoprolol Tartrate 2.5 mg 03/28/18 12:29 Lopressor Injection - IVPUSH Q4H PRN HYPERTENSION Ondansetron HCl 4 mg 03/27/18 21:56 Zofran Injection IVPUSH Q6H PRN NAUSEA AND/OR VOMITING Pantoprazole Sodium 40 mg 03/28/18 10:30 03/28/18 11:20 Protonix Iv IVPUSH 40 mg DAILY SYLVIA Administration Tamsulosin HCl 0.4 mg 03/28/18 10:00 Flomax - PO DAILY SYLVIA ASSESSMENT/PLAN: Patient is a 62 year old male with past medical history of chronic low back pain , CAD s/p CABG on plavix (held prior to surgery), HTN, HLD, DM, and BPH presented as outpatient for planned L1-S1 laminectomy and T12-S1 posterior instrumented spinal fusion. During the surgery, patient became pulseless, ACLS protocol initiated, and ROSC achieved. #ROSC s/p cardiopulmonary arrest -Hypothermia protocol started after midnight, to stop 24 hours after achieving desired temperature. -Cardiology (Dr. Bush) consulted. Recommendations appreciated. -Continue amiodarone loading dose as ordered. -Metoprolol restarted. -ACEI or ARBS hemodynamics permitting unless contraindicated -Recommend ASA resumption unless contraindicated, hold off on Plavix resumption if additional intervention is planned -Statins unless contraindicated -Echocardiography - EF 55%, no right heart strain, no wall motion abnormalities -Mechanically ventilated. -CXR in the AM. #Anoxic brain injury -pupils noted to be fixed last night -Vecuronium drip, propofol drip, fentanyl drip -Neurology consulted. Recommendations appreciated. -Will reassess after sedation tapered off -Head CT if possible. #Troponinemia -Troponin increasing from 2.86 to 4.67. -Will trend troponin q6h -EKG done - no acute changes #Spinal Wound -Mid back incision with skin sutures but layered closure not completed due to cardiac arrest -Passage of dark blood collecting under dressing, about 100cc, no concerns of active bleeding. -will monitor wound #CAD s/p CABG -hold home medications ASA and Plavix -will monitor #Hypertension -Metoprolol resumed. -Will monitor BP #DM -Discontinued insulin drip -Sliding scale implemented q4h -BGM q4h #MIAN: likely 2/2 pre-renal from poor perfusion during the arrest -Jimenez catheter place -urine lytes ordered. -will monitor renal function #FEN -IV NS @ 125 ml/hr -NPO -Routine bmp monitoring, will replete lytes as needed. #Prophylaxis -TEDs, SCDs #Disposition -ICU for close monitoring Visit type - Emergency Visit Emergency Visit: Yes ED Registration Date: 03/27/18 Care time: The patient presented to the Emergency Department on the above date and was hospitalized for further evaluation of their emergent condition. - New Patient This patient is new to me today: Yes Date on this admission: 03/28/18 - Critical Care Critical Care patient: Yes Total Critical Care Time (in minutes): 40 Critical Care Statement: The care of this patient involved high complexity decision making to prevent further life threatening deterioration of the patient 's condition and/or to evaluate & treat vital organ system(s) failure or risk of failure.
--- NOTE | 2018-03-28 18:08 | PN ---
Teaching Attending Note Name of Resident: Isabella Velazquez ATTENDING PHYSICIAN STATEMENT I saw and evaluated the patient. I reviewed the resident's note and discussed the case with the resident. I agree with the resident's findings and plan as documented. SUBJECTIVE:sedated/intubated OBJECTIVE: Last Vital Signs Temp Pulse Resp BP Pulse Ox 96.3 F L 78 20 181/84 H 100 03/28/18 16:00 03/28/18 17:17 03/28/18 17:34 03/28/18 17:17 03/28/18 16:36 Intake & Output 03/25/18 03/26/18 03/27/18 03/28/18 23:59 23:59 23:59 23:59 Intake Total 4500 1783.5 Output Total 1400 1200 Balance 3100 583.5 General sedated CV S1 S2 + Lungs coarse breath sounds anteriorly. Abdomen soft NT/ND obese Extremities no edema ASSESSMENT AND PLAN: 62yo M with PMH Severe stenosis L2-L3 and L3-L4, HTN, DM and CAD S/p CABG presented for scheduled laminectomy however case was aborted due to desaturation during the procedure and patient was flipped from prone position and noted to loose pulse and was PEA on the monitor. Code 99 was called and CPR initiated. received 1 shock and started on amio. ROSC achieved after approx 25mins. pt was started on hypothermia protocol and goal temp was achieved at 0800 this morning. 1. s/p cardiac arrest- PEA initial on the monitor and then Vtach during resuscitation. now on hypothermia protocol. goal temp achieved at 0800. cont per hypothermia protocol. on sedation/paralytic. on amio. awaiting official echo report. cardio on board 2. acute toxic/metabolic encephalopathy-concern for anoxic injury given prolonged CPR. currently sedated. will need to do neurochecks once hypothermia protocol is completed and sedation can be held. neuro on board 3. Acute hypoxic respiratory failure-noted prior to cardiac arrest. possible PE as pt had prolonged decreased mobilization. will attempt to evaluate at another time when patient is more stable. intubated. titrate down requirements as tolerated. 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 Leukocytosis- acute phase reactant. no signs of infection. will hold abx at this time. consider sepsis workup if has temp spike or leucotosis continues to trend up. 5. HTN- hold oral medication. increase sedation/paralytic if persists consider lopressor prn 6. DM- hold feeding during hypothermia protocol. sugars been persistantly below 180. can d/c insulin ggt. on iss and bgm. 7. DVT ppx- per hypothermia protocol 8. MICU monitoring The care of this patient involved high complexity decision making to prevent further life threatening deterioration of the patient's condition and/or to evaluate & treat vital organ system(s) failure or risk of failure. 40 mins
[2018-03-29] MEDS ORDERED: fentaNYL CITRATE 250 MCG/5 ML VIAL ONE ×3 (02:27→20:31)
[2018-03-29] MEDS: PROPOFOL 1,000,000 MCG/100 ML VIAL IVPB SCH ×2 (03:18→15:00)
[2018-03-29 06:18] LABS: ARTERIAL BLOOD GAS PCO2 34.1 mmHg (35-45); ARTERIAL BLOOD GAS pH 7.42 (7.35-7.45)
[2018-03-29 06:19] LABS: ALLENS TEST POSITIVE; ARTERIAL BLD GAS O2 SATURATION 97.3 % (90-98.9); ARTERIAL BLOOD GAS BASE EXCESS -1.8 meq/l (-2-2); ARTERIAL BLOOD GAS PO2 84.8 mmHg (80-100)
[2018-03-29] MEDS: VECURONIUM BROMIDE 50 MG in DEXTROSE 5%-WATER - 250 ML IVPB SCH (06:28)
[2018-03-29] MEDS: INSULIN SLIDING SCALE (NOVOLOG) 1 VIAL SQ SCH ×5 (06:28→21:06)
[2018-03-29 06:42] LABS: EOS % 0.2 % (0-4.5); HEMATOCRIT 35.5 % (35.4-49); HEMOGLOBIN 11.8 GM/dL (11.7-16.9); LYMPH % 5.5 % (8-40); MCH 28.8 pg (25.7-33.7); MCHC 33.3 g/dl (32.0-35.9); MEAN CELL VOLUME 86.4 fl (80-96); MEAN PLT VOLUME 7.6 fl (7.5-11.1); MONO % 5.4 % (3.8-10.2); NEUT % 88.9 % (42.8-82.8); PLATELET COUNT 126 K/MM3 (134-434); RBC 4.11 M/mm3 (4.00-5.60); RDW 16.7 % (11.9-15.9); WHITE BLOOD COUNT 16.2 K/mm3 (4.0-10.0)
[2018-03-29 06:57] LABS: ALBUMIN 2.4 g/dl (3.4-5.0); ALK PHOS 74 U/L (45-117); ANION GAP 9 MMOL/L (8-16); BILIRUBIN,TOTAL 0.6 mg/dL (0.2-1); BLOOD UREA NITROGEN 22 mg/dL (7-18); CALCIUM 8.1 mg/dL (8.5-10.1); CHLORIDE 106 mmol/L (98-107); CO2 24 mmol/L (21-32); CREATININE 0.7 mg/dL (0.55-1.3); GLUCOSE,RANDOM 220 mg/dL (74-106); MAGNESIUM 1.9 mg/dL (1.8-2.4); PHOSPHOROUS 4.1 mg/dL (2.5-4.9); POTASSIUM 3.5 mmol/L (3.5-5.1); SGOT/AST 107 U/L (15-37); SGPT/ALT 91 U/L (13-61); SODIUM 139 mmol/L (136-145)
[2018-03-29] MEDS: SODIUM CHLORIDE 1,000 ML IV SCH (09:01)
[2018-03-29] MEDS: FENTANYL INJECTION 500 MCG in DEXTROSE 5%-WATER - 90 ML IVPB SCH (09:18)
[2018-03-29] MEDS: ARTIFICIAL TEARS (POLYVINYL ALCOHOL) OPTH DROPS OU PRN (09:25)
[2018-03-29] MEDS: PANTOPRAZOLE SODIUM 40 MG VIAL IVPUSH SCH (09:28)
--- NOTE | 2018-03-29 09:55 | PN ---
Progress Note, Physician History of Present Illness: Sedated on mechanical ventilation, no arrhythmias on telemetry, hemodynamics stable. - Current Medication List Current Medications: Active Medications Artificial Tears (Artificial Tears) 1 drop OU BID PRN PRN Reason: DRY EYES Last Admin: 03/29/18 09:25 Dose: 1 drop Glycerin (Glycerin Suppository Adult -) 1 each RC DAILY PRN PRN Reason: CONSTIPATION Amiodarone HCl/Dextrose (Nexterone 360 Mg/200 Ml Bag) 360 mg in 200 mls @ 33.333 mls/hr IVPB TITR [facility]; Protocol Last Admin: 03/28/18 21:14 Dose: 0.5 mg/min, 16.667 mls/hr Propofol (Diprivan -) 1,000,000 mcg in 100 mls @ 7.484 mls/hr IVPB TITR [facility]; Protocol Last Admin: 03/29/18 03:18 Dose: Not Given Sodium Chloride (Normal Saline -) 1,000 mls @ 75 mls/hr IV ASDIR [facility] Last Admin: 03/29/18 09:01 Dose: 75 mls/hr Fentanyl 500 mcg/ Dextrose 100 mls @ 10 mls/hr IVPB TITR [facility] Stop: 03/29/18 13:29 Last Admin: 03/29/18 09:18 Dose: 100 mcg/hr, 20 mls/hr Potassium Chloride (Potassium Chloride 10 Meq Premix Ivpb -) 10 meq in 100 mls @ 100 mls/hr IVPB Q60M [facility] Stop: 03/29/18 11:44 Insulin Aspart (Novolog Vial Sliding Scale -) [facility]; Protocol Last Admin: 03/29/18 09:27 Dose: 4 units Insulin Detemir (Levemir Vial) 30 units SQ [facility] Last Admin: 03/27/18 22:00 Dose: Not Given Metoprolol Tartrate (Lopressor Injection -) 2.5 mg IVPUSH Q4H PRN PRN Reason: HYPERTENSION Last Admin: 03/28/18 21:24 Dose: 2.5 mg Ondansetron HCl (Zofran Injection) 4 mg IVPUSH Q6H PRN PRN Reason: NAUSEA AND/OR VOMITING Pantoprazole Sodium (Protonix Iv) 40 mg IVPUSH DAILY [facility] Last Admin: 03/29/18 09:28 Dose: 40 mg Tamsulosin HCl (Flomax -) 0.4 mg PO DAILY [facility] - Objective Vital Signs: Vital Signs Temperature 95.1 F L 03/29/18 06:00 Pulse Rate 76 03/29/18 08:00 Respiratory Rate 20 03/29/18 08:15 Blood Pressure 139/68 03/29/18 08:00 O2 Sat by Pulse Oximetry (%) 100 03/28/18 21:00 Cardiovascular: Yes: Regular Rate and Rhythm Respiratory: Yes: Intubated, Mechanically Ventilated Gastrointestinal: Yes: Soft, Hypoactive Bowel Sounds Edema: No Neurological: Yes: Unresponsive Labs: CBC, BMP 03/29/18 05:30 03/29/18 05:30 INR, PTT INR 1.19 (0.83-1.09) H 03/27/18 23:30 - ....Imaging Chest X-ray: Report Reviewed (NAD) EKG: Report Reviewed (Tele: [facility]) Problem List - Problems (1) Status post lumbar laminectomy Code(s): Z98.890 - OTHER SPECIFIED POSTPROCEDURAL STATES (2) CAD (coronary artery disease) Code(s): I25.10 - ATHSCL HEART DISEASE OF [place] CORONARY ARTERY W/O ANG PCTRS Qualifiers: Coronary Disease-Associated Artery/Lesion type: [place] artery [place] vs. transplanted heart: [place] heart Associated angina: without angina Qualified Code(s): I25.10 - Atherosclerotic heart disease of [place] coronary artery without angina pectoris (3) Cardiac arrest Code(s): I46.9 - CARDIAC ARREST, CAUSE UNSPECIFIED (4) Encephalopathy acute Code(s): G93.40 - ENCEPHALOPATHY, UNSPECIFIED (5) HLD (hyperlipidemia) Code(s): E78.5 - HYPERLIPIDEMIA, UNSPECIFIED Qualifiers: Hyperlipidemia type: pure hypercholesterolemia Qualified Code(s): E78.00 - Pure hypercholesterolemia, unspecified; E78.0 - Pure hypercholesterolemia (6) HTN (hypertension) Code(s): I10 - ESSENTIAL (PRIMARY) HYPERTENSION Qualifiers: Hypertension type: essential hypertension Qualified Code(s): I10 - Essential (primary) hypertension (7) Hx of CABG Code(s): Z95.1 - PRESENCE OF AORTOCORONARY BYPASS GRAFT (8) Insulin dependent diabetes mellitus Code(s): E11.9 - TYPE 2 DIABETES MELLITUS WITHOUT COMPLICATIONS; Z79.4 - CASH MANAGER (CURRENT) USE OF INSULIN (9) Demand ischemia Code(s): I24.8 - OTHER FORMS OF ACUTE ISCHEMIC HEART DISEASE Assessment/Plan 03/28/2018 Echocardiography report noted, normal LV systolic function, with LVEF 0f 55%, walll motion cannot be assessed (upon study review there is abnormal septal motion consistent with prior open heart surgery) no significant valvular pathology, normal RV size and fxn. ASSESSMENT: 1. Post cardiopulmonary arrest/pulse-less electrical activity, ventricular tachycardia post resuscitation currently intubated/sedated unresponsive 2. Post operative day #2 post lumber laminectomy 3. Anoxic brain injury to be considered in view of above clinical presentation 4. CAD post CABG angina pectoris with demand ischemia - troponins have peaked 5. LV diastolic dysfunction with class 0 NYHA classification LV failure 6. HTN 7. DM 8. hypercholesterolemia PLAN: 1. Completed hypothermia protocol with passive warming 2. D/c Amiodarone 3. Standing IV B-Blockers hemodynamics permitting pending oral intake 4. ACEI or ARBS hemodynamics permitting pending oral intake 5. Recommend ASA resumption unless contraindicated, hold of on Plavix resumption if additional intervention is planned 6. Statins unless contraindicated 7. Neurology evaluation for patient's neurological status, CT head when hypothermia protocol completed 8. Hold sedation s/p hypothermia protocol 9. DVT/GI prophylaxis
--- NOTE | 2018-03-29 10:27 | PN ---
Progress Note (short form) - Note Progress Note: 62 yo m w/ PMH chronic back pain, CAD s/p CABG 2019 on plavix (held before surg) , HTN, HLD, IDDM, BPH who presented for a L1-S1 laminectomyy and T12-S1 posterior instrumentation. Case proceeded w/o issue with ebl 1200, until patient desatted prior to bone grafting. Wound was closed patient was turned over, at which point he lost pulse in PEA. Code 99 was called, high quality cpr was initiated and ROSC was achieved after aprox 25 min, including a shock and amiodarone. called for neurological evaluation. on prorfol and fentanyl sedation, cooling protocol. No brain imaging noted. FU : unresponsive and still on sedation team to start rewarming head CT later today - Alcohol/Substance Use Hx Alcohol Use: Yes (occas) - Smoking History Smoking history: Never smoked Home Medications - Allergies Allergies/Adverse Reactions: Allergies Allergy/AdvReac Type Severity Reaction Status Date / Time bacitracin Allergy Verified 03/27/18 10:06 cimetidine [From Tagamet] Allergy Verified 03/27/18 10:06 - Home Medications Home Medications: Ambulatory Orders Allopurinol 600 mg PO DAILY 07/21/17 Clopidogrel Bisulfate [Plavix -] 75 mg PO DAILY 07/21/17 Dapagliflozin Propanediol [Farxiga] 5 mg PO DAILY 07/21/17 Duloxetine HCl [Cymbalta -] 60 mg PO DAILY 07/21/17 Glipizide 5 mg PO DAILY 07/21/17 Insulin Glargine,Hum.rec.anlog [Lantus Solostar] 30 unit SQ HS 07/21/17 Metoprolol Tartrate 25 mg PO DAILY 07/21/17 Saxagliptin HCl [Onglyza] 5 mg PO DAILY 07/21/17 Simvastatin 40 mg PO HS 07/21/17 Silver Sulfadiazine 1% Top Cr [Silvadene -] 1 applic TP DAILY #1 jar 07/25/17 Aspirin [Adult Aspirin] 81 mg PO DAILY 03/16/18 Docusate Sodium [Colace] 400 mg PO DAILY 03/16/18 Fentanyl 50 mcg Q3D 03/16/18 Oxcarbazepine 600 mg PO BID 03/16/18 Tamsulosin HCl [Flomax] 0.4 mg PO DAILY 03/16/18 Acetaminophen [Tylenol .Regular Strength -] 650 mg PO Q4H PRN tablet 03/20/18 Cyclobenzaprine HCl [Flexeril -] 10 mg PO TID PRN tablet 03/20/18 Glycerin Suppository Adult - 1 each RC DAILY PRN supp.rect 03/20/18 Polyethylene Glycol 3350 [Miralax 119 gm Btl -] 17 gm PO DAILY bottle 03/20/18 Physical Exam-Neuro Vital Signs: Vital Signs Temperature 96.3 F L 03/29/18 10:00 Pulse Rate 91 H 03/29/18 10:00 Respiratory Rate 20 03/29/18 10:00 Blood Pressure 163/75 03/29/18 10:00 O2 Sat by Pulse Oximetry (%) 100 03/28/18 21:00 Labs: CBCD WBC 16.2 K/mm3 (4.0-10.0) H 03/29/18 05:30 RBC 4.11 M/mm3 (4.00-5.60) 03/29/18 05:30 Hgb 11.8 GM/dL (11.7-16.9) 03/29/18 05:30 Hct 35.5 % (35.4-49) 03/29/18 05:30 MCV 86.4 fl (80-96) 03/29/18 05:30 MCHC 33.3 g/dl (32.0-35.9) 03/29/18 05:30 RDW 16.7 % (11.9-15.9) H 03/29/18 05:30 Plt Count 126 K/MM3 (134-434) L D 03/29/18 05:30 MPV 7.6 fl (7.5-11.1) 03/29/18 05:30 CMP Sodium 139 mmol/L (136-145) 03/29/18 05:30 Potassium 3.5 mmol/L (3.5-5.1) 03/29/18 05:30 Chloride 106 mmol/L (98-107) 03/29/18 05:30 Carbon Dioxide 24 mmol/L (21-32) 03/29/18 05:30 Anion Gap 9 MMOL/L (8-16) 03/29/18 05:30 BUN 22 mg/dL (7-18) H 03/29/18 05:30 Creatinine 0.7 mg/dL (0.55-1.3) 03/29/18 05:30 Creat Clearance w eGFR > 60 (>60) 03/29/18 05:30 Calcium 8.1 mg/dL (8.5-10.1) L 03/29/18 05:30 Total Bilirubin 0.6 mg/dL (0.2-1) 03/29/18 05:30 AST 107 U/L (15-37) H 03/29/18 05:30 ALT 91 U/L (13-61) H 03/29/18 05:30 Alkaline Phosphatase 74 U/L (45-117) 03/29/18 05:30 Total Protein 5.0 g/dl (6.4-8.2) L 03/29/18 05:30 Albumin 2.4 g/dl (3.4-5.0) L 03/29/18 05:30 - Neuro Exam Level Of Consciousness: Yes: Sedated (on sedation and cooling protocol, breathing with vent 12/12, pupils fixed at 3 mm, no corneals or Dolls, no focal twtitching , no spont movements ) Problem List - Problems (1) Encephalopathy acute Code(s): G93.40 - ENCEPHALOPATHY, UNSPECIFIED (2) Cardiac arrest Code(s): I46.9 - CARDIAC ARREST, CAUSE UNSPECIFIED (3) Cardiogenic shock Code(s): R57.0 - CARDIOGENIC SHOCK Assessment/Plan 62 yo m w/ PMH chronic back pain, CAD s/p CABG 2019 on plavix (held before surg) , HTN, HLD, IDDM, BPH who presented for a L1-S1 laminectomyy and T12-S1 posterior instrumentation. Case proceeded w/o issue with ebl 1200, until patient desatted prior to bone grafting. Wound was closed patient was turned over, at which point he lost pulse in PEA. Code 99 was called, high quality cpr was initiated and ROSC was achieved after aprox 25 min, including a shock and amiodarone. called for neurological evaluation. on prorfol and fentanyl sedation, cooling protocol. No brain imaging noted. AP : possible anoxic brain injury though difficult to assess given sedation, limited exam at this juncture, though mechanism of injury concerning for underlying anoxic neurological injury will reassess after sedation tapered off HD CT later today DR SALAZAR Problem List - Problems (1) Encephalopathy acute Code(s): G93.40 - ENCEPHALOPATHY, UNSPECIFIED (2) Cardiac arrest Code(s): I46.9 - CARDIAC ARREST, CAUSE UNSPECIFIED (3) Cardiogenic shock Code(s): R57.0 - CARDIOGENIC SHOCK
[2018-03-29] MEDS ORDERED: METOPROLOL TARTRATE 5 MG/5 ML VIAL IVPUSH SCH (11:15)
[2018-03-29] MEDS: KCL 10 MEQ IVPB 10 MEQ/100 ML INFUS.BAG IVPB SCH ×2 (11:26→12:47)
[2018-03-29] MEDS ORDERED: ENALAPRILAT DIHYDRATE 1.25 MG/1 ML VIAL IVPB SCH (12:15)
--- NOTE | 2018-03-29 12:43 | PN ---
Teaching Attending Note Name of Resident: China Randle ATTENDING PHYSICIAN STATEMENT I saw and evaluated the patient. I reviewed the resident's note and discussed the case with the resident. I agree with the resident's findings and plan as documented. SUBJECTIVE: Pt seen and examined in the ICU. Hypothermia protocol completed. Off pressors. Sedated on propofol and fentanyl gtts. OBJECTIVE: Vital Signs Period Temp Pulse Resp BP Sys/Martinez Pulse Ox Last 24 Hr 95 F-963 F 60-94 20-20 114-191/68-95 100-100 Intake & Output 03/26/18 03/27/18 03/28/18 03/29/18 23:59 23:59 23:59 23:59 Intake Total 4500 3319.5 1836 Output Total 1400 1500 1150 Balance 3100 1819.5 686 Weight 51.057 kg Gen: intubated, sedated HEENT: pupils equal 4mm, sluggish Heart: RRR Lung: decreased breath sounds at the bases Abd: soft, nontender Ext: no edema CBC, BMP 03/29/18 05:30 03/29/18 05:30 Active Medications Artificial Tears (Artificial Tears) 1 drop OU BID PRN PRN Reason: DRY EYES Last Admin: 03/29/18 09:25 Dose: 1 drop Glycerin (Glycerin Suppository Adult -) 1 each RC DAILY PRN PRN Reason: CONSTIPATION Sodium Chloride (Normal Saline -) 1,000 mls @ 75 mls/hr IV ASDIR [facility] Last Admin: 03/29/18 09:01 Dose: 75 mls/hr Potassium Chloride (Potassium Chloride 10 Meq Premix Ivpb -) 10 meq in 100 mls @ 100 mls/hr IVPB Q60M [facility] Stop: 03/29/18 12:59 Last Admin: 03/29/18 11:26 Dose: 100 mls/hr Propofol (Diprivan -) 1,000,000 mcg in 100 mls @ 1.532 mls/hr IVPB TITR [facility]; Protocol Insulin Aspart (Novolog Vial Sliding Scale -) 1 vial SQ Q4HWA [facility]; Protocol Last Admin: 03/29/18 09:27 Dose: 4 units Insulin Detemir (Levemir Vial) 30 units SQ HS [facility] Last Admin: 03/27/18 22:00 Dose: Not Given Metoprolol Tartrate (Lopressor Injection -) 5 mg IVPUSH ONCE ONE Stop: 03/29/18 12:08 Metoprolol Tartrate (Lopressor Injection -) 5 mg IVPUSH Q4H-IV [facility] Ondansetron HCl (Zofran Injection) 4 mg IVPUSH Q6H PRN PRN Reason: NAUSEA AND/OR VOMITING Pantoprazole Sodium (Protonix Iv) 40 mg IVPUSH DAILY [facility] Last Admin: 03/29/18 09:28 Dose: 40 mg Tamsulosin HCl (Flomax -) 0.4 mg PO DAILY [facility] ASSESSMENT AND PLAN: s/p PEA/VTach Cardiopulmonary Arrest r/o Anoxic Encephalopathy s/p Lumbar Laminectomy CAD s/p CABG +Troponins likely Demand Ischemia LV Systolic/Diastolic Dysfunction HTN DM Hypercholesterolemia CKD - completed hypothermia protocol, continue passive warming - amiodarone d/c'd by cardiology - beta blockers - off pressors, maintain MAP >65 - IVF - replete lytes - CT head today - hold sedation to assess mental status - DVT/GI prophylaxis - continue ICU monitoring critical care time spent in reviewing chart, evaluating patient and formulating plan 35 min
--- NOTE | 2018-03-29 13:39 | PN ---
Teaching Attending Note Name of Resident: Isabella Velazquez ATTENDING PHYSICIAN STATEMENT I saw and evaluated the patient. I reviewed the resident's note and discussed the case with the resident. I agree with the resident's findings and plan as documented. SUBJECTIVE:intubated/sedated OBJECTIVE: Last Vital Signs Temp Pulse Resp BP Pulse Ox 97.8 F 90 20 157/82 100 03/29/18 12:00 03/29/18 11:53 03/29/18 12:00 03/29/18 12:00 03/29/18 10:00 General sedated CV S1 S2 + Lungs coarse breath sounds anteriorly. Abdomen soft NT/ND obese Extremities no edema ASSESSMENT AND PLAN: 62yo M with PMH Severe stenosis L2-L3 and L3-L4, HTN, DM and CAD S/p CABG presented for scheduled laminectomy however case was aborted due to desaturation during the procedure and patient was flipped from prone position and noted to loose pulse and was PEA on the monitor. Code 99 was called and CPR initiated. received 1 shock and started on amio. ROSC achieved after approx 25mins. pt was started on hypothermia protocol and goal temp was achieved at 0800 this morning. 1. s/p cardiac arrest- hypothermia protocol finished this AM. now with passive warming. amio d/c by cardio. Trop peaked at 5. cardio on board 2. acute toxic/metabolic encephalopathy-concern for anoxic injury given prolonged CPR. currently sedated. will titrate down sedation to assess neuro status. head CT once rewarmed. neuro on board 3. Acute hypoxic respiratory failure-noted prior to cardiac arrest. possible PE as pt had prolonged decreased mobilization. will attempt to evaluate at another time when patient is more stable. intubated. titrate down requirements as tolerated. 4. Leukocytosis- acute phase reactant. no signs of infection. will hold abx at this time. consider sepsis workup if has temp spike or leucotosis continues to trend up. 5. HTN-elevated. re-start oral medications. lopressor prn 6. DM-can drop NGT and start TF. titrate insulin to optimize control. 7. DVT ppx- per hypothermia protocol 8. MICU monitoring The care of this patient involved high complexity decision making to prevent further life threatening deterioration of the patient's condition and/or to evaluate & treat vital organ system(s) failure or risk of failure. 38 mins
--- NOTE | 2018-03-29 13:55 | PN ---
Physical Exam: SUBJECTIVE: - Cooling protocol ended at midnight, currently rewarming - Vecuronium, propofol, fentanyl, amiodarone drips discontinued - Hypertensive to 210. Given 5mg IV metoprolol, propofol restarted with improvement in BP to 135/72 OBJECTIVE: Vital Signs Period Temp Pulse Resp BP Sys/Martinez Pulse Ox Last 24 Hr 95 F-98.7 F 67-94 20-20 114-191/68-95 100-100 General: Intubated, sedated HEENT: Pupils sluggish but equal and reactive. RIJ in place. Cards: RRR, no murmur appreciated Pulm: Mechanically ventilated Abd: Soft, nondistended Ext: No LE edema. : Jimenez in place, draining freely Skin: Pale Neuro: Sedated Laboratory Results - last 24 hr 03/28/18 03/28/18 03/28/18 12:30 14:08 14:30 WBC RBC Hgb Hct MCV MCH MCHC RDW Plt Count MPV Absolute Neuts (auto) Neutrophils % Lymphocytes % Monocytes % Eosinophils % Basophils % Nucleated RBC % Anticoagulation Therapy Puncture Site Patient Temperature ABG pH ABG pCO2 at Pt Temp ABG pO2 at Pt Temp ABG HCO3 ABG O2 Sat (Measured) ABG O2 Content ABG Base Excess Rolf Test O2 Delivery Device Oxygen Flow Rate Vent Mode Vent Rate Mechanical Rate PEEP Pressure Support Vent Sodium Potassium Chloride Carbon Dioxide Anion Gap BUN Creatinine Creat Clearance w eGFR POC Glucometer 174.19407 Random Glucose Calcium Phosphorus Magnesium Total Bilirubin AST ALT Alkaline Phosphatase Troponin I 4.67 H* Total Protein Albumin Ur Random Sodium 30 L 03/28/18 03/28/18 03/28/18 17:34 18:10 21:20 WBC RBC Hgb Hct MCV MCH MCHC RDW Plt Count MPV Absolute Neuts (auto) Neutrophils % Lymphocytes % Monocytes % Eosinophils % Basophils % Nucleated RBC % Anticoagulation Therapy Puncture Site Patient Temperature ABG pH ABG pCO2 at Pt Temp ABG pO2 at Pt Temp ABG HCO3 ABG O2 Sat (Measured) ABG O2 Content ABG Base Excess Rolf Test O2 Delivery Device Oxygen Flow Rate Vent Mode Vent Rate Mechanical Rate PEEP Pressure Support Vent Sodium Potassium Chloride Carbon Dioxide Anion Gap BUN Creatinine Creat Clearance w eGFR POC Glucometer 210.54791 241.15355 Random Glucose Calcium Phosphorus Magnesium Total Bilirubin AST ALT Alkaline Phosphatase Troponin I 5.17 H* Total Protein Albumin Ur Random Sodium 03/29/18 03/29/18 03/29/18 04:57 05:30 05:30 WBC 16.2 H RBC 4.11 Hgb 11.8 Hct 35.5 MCV 86.4 MCH 28.8 MCHC 33.3 RDW 16.7 H Plt Count 126 L D MPV 7.6 Absolute Neuts (auto) 14.4 H Neutrophils % 88.9 H Lymphocytes % 5.5 L D Monocytes % 5.4 Eosinophils % 0.2 D Basophils % 0.0 Nucleated RBC % 0 Anticoagulation Therapy Puncture Site Patient Temperature ABG pH ABG pCO2 at Pt Temp ABG pO2 at Pt Temp ABG HCO3 ABG O2 Sat (Measured) ABG O2 Content ABG Base Excess Rolf Test O2 Delivery Device Oxygen Flow Rate Vent Mode Vent Rate Mechanical Rate PEEP Pressure Support Vent Sodium 139 Potassium 3.5 Chloride 106 Carbon Dioxide 24 Anion Gap 9 BUN 22 H Creatinine 0.7 Creat Clearance w eGFR > 60 POC Glucometer 89.72100 Random Glucose 220 H Calcium 8.1 L Phosphorus 4.1 Magnesium 1.9 Total Bilirubin 0.6 AST 107 H ALT 91 H Alkaline Phosphatase 74 Troponin I 3.12 H* Total Protein 5.0 L Albumin 2.4 L Ur Random Sodium 03/29/18 03/29/18 03/29/18 05:30 06:10 08:35 WBC RBC Hgb Hct MCV MCH MCHC RDW Plt Count MPV Absolute Neuts (auto) Neutrophils % Lymphocytes % Monocytes % Eosinophils % Basophils % Nucleated RBC % Anticoagulation Therapy No Result Required. Puncture Site Right radial Patient Temperature 95.1 ABG pH 7.42 ABG pCO2 at Pt Temp 34.1 L D ABG pO2 at Pt Temp 84.8 ABG HCO3 22.2 ABG O2 Sat (Measured) 97.3 ABG O2 Content 16.4 ABG Base Excess -1.8 Rolf Test Positive O2 Delivery Device Mech vent Oxygen Flow Rate 40% Vent Mode A/c Vent Rate 20 Mechanical Rate Yes PEEP 5.0 Pressure Support Vent 450 Sodium Potassium Chloride Carbon Dioxide Anion Gap BUN Creatinine Creat Clearance w eGFR POC Glucometer 228.12374 Random Glucose Calcium Phosphorus Magnesium Total Bilirubin AST ALT Alkaline Phosphatase Troponin I Cancelled Total Protein Albumin Ur Random Sodium Active Medications Generic Name Dose Route Start Last Admin Trade Name Freq PRN Reason Stop Dose Admin Artificial Tears 1 drop 03/28/18 07:59 03/29/18 09:25 Artificial Tears OU 1 drop BID PRN Administration DRY EYES Aspirin 81 mg 03/30/18 10:00 Ecotrin - PO DAILY [facility] Glycerin 1 each 03/27/18 21:55 Glycerin Suppository Adult - RC DAILY PRN CONSTIPATION Sodium Chloride 1,000 mls @ 75 mls/hr 03/28/18 07:16 03/29/18 09:01 Normal Saline - IV 75 mls/hr ASDIR [facility] Administration Propofol 1,000,000 mcg in 100 mls @ 1.532 mls/hr 03/29/18 12:30 Diprivan - IVPB TITR [facility] Protocol 5 MCG/KG/MIN Insulin Aspart 1 vial 03/28/18 14:00 03/29/18 09:27 Novolog Vial Sliding Scale - SQ 4 units Q4HWA [facility] Administration Protocol Insulin Detemir 30 units 03/27/18 22:00 03/27/18 22:00 Levemir Vial SQ Not Given HS [facility] Lisinopril 5 mg 03/29/18 12:45 Prinivil NGT DAILY [facility] Metoprolol Tartrate 5 mg 03/29/18 12:07 Lopressor Injection - IVPUSH 03/29/18 12:08 ONCE ONE Metoprolol Tartrate 5 mg 03/29/18 12:07 Lopressor Injection - IVPUSH Q4H-IV [facility] Ondansetron HCl 4 mg 03/27/18 21:56 Zofran Injection IVPUSH Q6H PRN NAUSEA AND/OR VOMITING Pantoprazole Sodium 40 mg 03/28/18 10:30 03/29/18 09:28 Protonix Iv IVPUSH 40 mg DAILY [facility] Administration Tamsulosin HCl 0.4 mg 03/28/18 10:00 Flomax - PO DAILY [facility] ASSESSMENT/PLAN: Marco Land is a 62yo man with a PMH of CAD s/p CABG, HTN, HLD, IDDM, chronic back pain due to spinal stnosis with rapid neurological decline. He presented yesterday for a planned spinal surgery and suffered a cardac arrest in the OR. ROSC was achieved after 26 minutes of CPR, and he was transferred to the ICU. Cooling protocol was initiated, now completed with rewarming. He remains in critical condition in the ICU. Neuro: - Concern for hypoxic brain injury given length of code - CT head to be completed today - Vecuronium drip and fentanyl drip discontinued - Initially stopped propofol drip but restarted due to hypertension, tachypnea, gagging. Will wean as tolerated following CT - Neuro consulted. Will follow recs. CV: - s/p cardiac arrest. H/o CAD, CABG, HTN - Cardiology following - Cooling protocol completed - Amiodarone drip D/C'd per cardiology - Echo completed, relatively normal, EF 55%, no right heart strain, no wall motion abnormalities - Troponin peaked at 5.17 overnight, now downtrending - Increased metoprolol to 5mg IV q4hr. Per cardiology, starting lisinopril 5mg daily, ASA 81 via NGT Pulm: - Mechanically ventilated - Current settings A/c, 450cc, 40%, PEEP 5, rate 12. - Overbreathing vent - IS 10x per hour Heme: - Restart ASA. Continue to hold plavix per cards - Hgb with slight decrease to 11.8 - Monitor daily CBC GI: - NGT in place - Starting TF recommended by nutrition verbally, formal recs pending. - Daily PPI while intubated and with NGT - LFTs downtrending, likely increased due to poor perfusion during code. Recheck tomorrow. Renal: - Jimenez in place, adequate UOP - MIAN resolved - Holding home flomax ID: - Leukocytosis improved from 20.3 to 16.2. Most likely stress response to surgery, CPR, arrest - Monitor morning CBC Endo: - h/o IDDM - Continue ISS Q4hr - Sugars have been well controlled in high 100's - 200 Musc: - Paralytics D/C'd - Restraints in place per protocol - Monitoring back incision per nursing. No active bleeding overnight. - Dressing to be replaced or reinforced as needed for oozing - Will contact Dr Rodriguez as needed if active bleeding is suspected PPx: - No pharmacologic DVT ppx postoperatively. SCDs in place. - PPI daily FEN: - NPO. NGT in place. May start TF pending nutrition recs. - NS@75 - Replete lytes PRN Dispo: - Critically ill patient requiring ongoing ICU-level care Seen and discussed with Dr Bright. China Randle PGY1 Visit type - Emergency Visit Emergency Visit: No - New Patient This patient is new to me today: No - Critical Care Critical Care patient: Yes Total Critical Care Time (in minutes): 45 Critical Care Statement: The care of this patient involved high complexity decision making to prevent further life threatening deterioration of the patient 's condition and/or to evaluate & treat vital organ system(s) failure or risk of failure.
[2018-03-29] MEDS ORDERED: METOPROLOL TARTRATE 5 MG/5 ML VIAL IVPUSH ONE (14:15)
[2018-03-29] MEDS ORDERED: PROPOFOL 1,000,000 MCG/100 ML VIAL IVPB SCH (14:15)
[2018-03-29] MEDS: LISINOPRIL 5 MG TABLET (FP) NGT SCH (15:00)
[2018-03-29] MEDS: METOPROLOL TARTRATE 5 MG/5 ML VIAL IVPUSH SCH ×3 (15:28→22:16)
[2018-03-29] MEDS ORDERED: ACETAMINOPHEN 1000 MG/100 ML VIAL (NON FORMULARY) IVPB PRN ×2 (15:44→17:04)
--- NOTE | 2018-03-29 15:50 | PN ---
Physical Exam: SUBJECTIVE: Patient seen and examined at bedside this morning. Patient is intubated, sedated and paralyzed. OBJECTIVE: Vital Signs Period Temp Pulse Resp BP Sys/Martinez Pulse Ox Last 24 Hr 95 F-98.7 F 67-99 20-28 114-200/68-95 100-100 GENERAL: The patient is intubated, sedated and paralyzed. LUNGS: Coarse breath sounds. HEART: Regular rate and rhythm, S1, S2 without murmur, rub or gallop. ABDOMEN: Soft,obese, nondistended. EXTREMITIES: 2+ pulses, warm, well-perfused, no edema. Laboratory Results - last 24 hr 03/28/18 03/28/18 03/28/18 14:30 17:34 18:10 WBC RBC Hgb Hct MCV MCH MCHC RDW Plt Count MPV Absolute Neuts (auto) Neutrophils % Lymphocytes % Monocytes % Eosinophils % Basophils % Nucleated RBC % Anticoagulation Therapy Puncture Site Patient Temperature ABG pH ABG pCO2 at Pt Temp ABG pO2 at Pt Temp ABG HCO3 ABG O2 Sat (Measured) ABG O2 Content ABG Base Excess Rolf Test O2 Delivery Device Oxygen Flow Rate Vent Mode Vent Rate Mechanical Rate PEEP Pressure Support Vent Sodium Potassium Chloride Carbon Dioxide Anion Gap BUN Creatinine Creat Clearance w eGFR POC Glucometer [phone] Random Glucose Calcium Phosphorus Magnesium Total Bilirubin AST ALT Alkaline Phosphatase Troponin I 5.17 H* Total Protein Albumin Ur Random Sodium 30 L Urine Creatinine 206.0 H 03/28/18 03/29/18 03/29/18 21:20 04:57 05:30 WBC 16.2 H RBC 4.11 Hgb 11.8 Hct 35.5 MCV 86.4 MCH 28.8 MCHC 33.3 RDW 16.7 H Plt Count 126 L D MPV 7.6 Absolute Neuts (auto) 14.4 H Neutrophils % 88.9 H Lymphocytes % 5.5 L D Monocytes % 5.4 Eosinophils % 0.2 D Basophils % 0.0 Nucleated RBC % 0 Anticoagulation Therapy Puncture Site Patient Temperature ABG pH ABG pCO2 at Pt Temp ABG pO2 at Pt Temp ABG HCO3 ABG O2 Sat (Measured) ABG O2 Content ABG Base Excess Rolf Test O2 Delivery Device Oxygen Flow Rate Vent Mode Vent Rate Mechanical Rate PEEP Pressure Support Vent Sodium Potassium Chloride Carbon Dioxide Anion Gap BUN Creatinine Creat Clearance w eGFR POC Glucometer 241.49468 89.69439 Random Glucose Calcium Phosphorus Magnesium Total Bilirubin AST ALT Alkaline Phosphatase Troponin I Total Protein Albumin Ur Random Sodium Urine Creatinine 03/29/18 03/29/18 03/29/18 05:30 05:30 06:10 WBC RBC Hgb Hct MCV MCH MCHC RDW Plt Count MPV Absolute Neuts (auto) Neutrophils % Lymphocytes % Monocytes % Eosinophils % Basophils % Nucleated RBC % Anticoagulation Therapy No Result Required. Puncture Site Right radial Patient Temperature 95.1 ABG pH 7.42 ABG pCO2 at Pt Temp 34.1 L D ABG pO2 at Pt Temp 84.8 ABG HCO3 22.2 ABG O2 Sat (Measured) 97.3 ABG O2 Content 16.4 ABG Base Excess -1.8 Rolf Test Positive O2 Delivery Device Mech vent Oxygen Flow Rate 40% Vent Mode A/c Vent Rate 20 Mechanical Rate Yes PEEP 5.0 Pressure Support Vent 450 Sodium 139 Potassium 3.5 Chloride 106 Carbon Dioxide 24 Anion Gap 9 BUN 22 H Creatinine 0.7 Creat Clearance w eGFR > 60 POC Glucometer Random Glucose 220 H Calcium 8.1 L Phosphorus 4.1 Magnesium 1.9 Total Bilirubin 0.6 AST 107 H ALT 91 H Alkaline Phosphatase 74 Troponin I 3.12 H* Cancelled Total Protein 5.0 L Albumin 2.4 L Ur Random Sodium Urine Creatinine 03/29/18 08:35 WBC RBC Hgb Hct MCV MCH MCHC RDW Plt Count MPV Absolute Neuts (auto) Neutrophils % Lymphocytes % Monocytes % Eosinophils % Basophils % Nucleated RBC % Anticoagulation Therapy Puncture Site Patient Temperature ABG pH ABG pCO2 at Pt Temp ABG pO2 at Pt Temp ABG HCO3 ABG O2 Sat (Measured) ABG O2 Content ABG Base Excess Rolf Test O2 Delivery Device Oxygen Flow Rate Vent Mode Vent Rate Mechanical Rate PEEP Pressure Support Vent Sodium Potassium Chloride Carbon Dioxide Anion Gap BUN Creatinine Creat Clearance w eGFR POC Glucometer [phone] Random Glucose Calcium Phosphorus Magnesium Total Bilirubin AST ALT Alkaline Phosphatase Troponin I Total Protein Albumin Ur Random Sodium Urine Creatinine Active Medications Generic Name Dose Route Start Last Admin Trade Name Freq PRN Reason Stop Dose Admin Artificial Tears 1 drop 03/28/18 07:59 03/29/18 09:25 Artificial Tears OU 1 drop BID PRN Administration DRY EYES Aspirin 81 mg 03/30/18 10:00 Ecotrin - PO DAILY SYLVIA Glycerin 1 each 03/27/18 21:55 Glycerin Suppository Adult - RC DAILY PRN CONSTIPATION Sodium Chloride 1,000 mls @ 75 mls/hr 03/28/18 07:16 03/29/18 09:01 Normal Saline - IV 75 mls/hr ASDIR SYLVIA Administration Propofol 1,000,000 mcg in 100 mls @ 3.742 mls/hr 03/29/18 15:45 03/29/18 15: 00 Diprivan - IVPB 5 mcg/kg/min TITR SYLVIA 3.742 mls/hr Administration Protocol 5 MCG/KG/MIN Insulin Aspart 1 vial 03/28/18 14:00 03/29/18 14:04 Novolog Vial Sliding Scale - SQ 4 units Q4HWA SYLVIA Administration Protocol Insulin Detemir 30 units 03/27/18 22:00 03/27/18 22:00 Levemir Vial SQ Not Given HS [facility] Lisinopril 5 mg 03/29/18 12:45 03/29/18 15:00 Prinivil NGT 5 mg DAILY SYLVIA Administration Metoprolol Tartrate 5 mg 03/29/18 14:15 03/29/18 15:28 Lopressor Injection - IVPUSH 5 mg Q4H-IV SYLVIA Administration Ondansetron HCl 4 mg 03/27/18 21:56 Zofran Injection IVPUSH Q6H PRN NAUSEA AND/OR VOMITING Pantoprazole Sodium 40 mg 03/28/18 10:30 03/29/18 09:28 Protonix Iv IVPUSH 40 mg DAILY SY[facility]IA Administration Tamsulosin HCl 0.4 mg 03/28/18 10:00 Flomax - PO DAILY SY[facility]IA ASSESSMENT/PLAN: Patient is a 62 year old male with past medical history of chronic low back pain , CAD s/p CABG on plavix (held prior to surgery), HTN, HLD, DM, and BPH presented as outpatient for planned L1-S1 laminectomy and T12-S1 posterior instrumented spinal fusion. During the surgery, patient became pulseless, ACLS protocol initiated, and ROSC achieved. #ROSC s/p cardiopulmonary arrest -Hypothermia protocol finished this morning. -Passive rewarming initiated. -Cardiology (Dr. Bush) consulted. Recommendations appreciated. -Amiodarone drip discontinued. -IV Metoprolol increased to 5mg q4h -Lisinopril 5mg daily and ASA 81mg started through NGT -hold off on Plavix resumption -Statins unless contraindicated. -Echocardiography - EF 55%, no right heart strain, no wall motion abnormalities -Mechanically ventilated. #Anoxic brain injury -Neurology consulted. Recommendations appreciated. -Continue Propofol drip -Vecuronium drip and fentanyl drip discontinued. -Will reassess after sedation tapered off -Head CT done. Awaiting final read. #Troponinemia -Troponin peaked at 5.17 and started to trend down to 3.12 -EKG done - no acute changes #Spinal Wound -Mid back incision with skin sutures but layered closure not completed due to cardiac arrest -Minimal bleeding today. -Monitor wound #Leukocytosis -Likely reactive -Trending down today. -will continue to monitor. #CAD s/p CABG -hold home medications ASA and Plavix -will monitor #Hypertension -Metoprolol resumed. -Will monitor BP #DM -Discontinued insulin drip -Sliding scale implemented q4h -BGM q4h #MIAN: resolving -likely 2/2 pre-renal from poor perfusion during the arrest -Jimenez catheter placed -urine lytes ordered. -will monitor renal function #FEN -IV NS @ 125 ml/hr -NPO -Routine bmp monitoring, will replete lytes as needed. #Prophylaxis -TEDs, SCDs #Disposition -ICU for close monitoring Visit type - Emergency Visit Emergency Visit: Yes ED Registration Date: 03/27/18 Care time: The patient presented to the Emergency Department on the above date and was hospitalized for further evaluation of their emergent condition. - New Patient This patient is new to me today: Yes Date on this admission: 03/29/18 - Critical Care Critical Care patient: Yes Total Critical Care Time (in minutes): 40 Critical Care Statement: The care of this patient involved high complexity decision making to prevent further life threatening deterioration of the patient 's condition and/or to evaluate & treat vital organ system(s) failure or risk of failure.
[2018-03-29] MEDS ORDERED: FENTANYL INJECTION 500 MCG in DEXTROSE 5%-WATER - 90 ML IVPB SCH (20:30)
[2018-03-29] MEDS: INSULIN (LEVEMIR) 100 UNITS/ML UNITS SQ SCH (21:06)
[2018-03-30] MEDS: ACETAMINOPHEN 1000 MG/100 ML VIAL (NON FORMULARY) IVPB PRN ×4 (00:47→21:46)
[2018-03-30] MEDS ORDERED: fentaNYL CITRATE 250 MCG/5 ML VIAL ONE (03:06)
[2018-03-30] MEDS: INSULIN SLIDING SCALE (NOVOLOG) 1 VIAL SQ SCH ×5 (05:00→17:18)
[2018-03-30] MEDS: METOPROLOL TARTRATE 5 MG/5 ML VIAL IVPUSH SCH ×3 (05:00→09:24)
[2018-03-30 08:48] LABS: BASO % 0.1 % (0-2.0); EOS % 0.7 % (0-4.5); LYMPH % 7.1 % (8-40); MCH 29.2 pg (25.7-33.7); MCHC 33.5 g/dl (32.0-35.9); MEAN CELL VOLUME 87.1 fl (80-96); MEAN PLT VOLUME 8.5 fl (7.5-11.1); NEUT % 86.1 % (42.8-82.8); PLATELET COUNT 168 K/MM3 (134-434); RBC 3.44 M/mm3 (4.00-5.60); RDW 17.2 % (11.9-15.9); WHITE BLOOD COUNT 15.6 K/mm3 (4.0-10.0)
[2018-03-30 09:17] LABS: ALBUMIN 2.1 g/dl (3.4-5.0); ALK PHOS 74 U/L (45-117); ANION GAP 5 MMOL/L (8-16); BILIRUBIN,TOTAL 0.5 mg/dL (0.2-1); BLOOD UREA NITROGEN 25 mg/dL (7-18); CALCIUM 7.8 mg/dL (8.5-10.1); CHLORIDE 108 mmol/L (98-107); CO2 27 mmol/L (21-32); GLUCOSE,RANDOM 161 mg/dL (74-106); MAGNESIUM 2.1 mg/dL (1.8-2.4); PHOSPHOROUS 2.5 mg/dL (2.5-4.9); POTASSIUM 3.7 mmol/L (3.5-5.1); SGOT/AST 43 U/L (15-37); SGPT/ALT 53 U/L (13-61); SODIUM 140 mmol/L (136-145); TOT PROT 4.9 g/dl (6.4-8.2)
[2018-03-30] MEDS: TAMSULOSIN HCL 0.4 MG CAP PO SCH ×2 (09:23→09:55)
[2018-03-30] MEDS: LISINOPRIL 5 MG TABLET (FP) NGT SCH (09:24)
[2018-03-30] MEDS: PANTOPRAZOLE SODIUM 40 MG VIAL IVPUSH SCH (09:24)
--- NOTE | 2018-03-30 09:39 | PN ---
Progress Note (short form) - Note Progress Note: 62 yo m w/ PMH chronic back pain, CAD s/p CABG 2019 on plavix (held before surg) , HTN, HLD, IDDM, BPH who presented for a L1-S1 laminectomyy and T12-S1 posterior instrumentation. Case proceeded w/o issue with ebl 1200, until patient desatted prior to bone grafting. Wound was closed patient was turned over, at which point he lost pulse in PEA. Code 99 was called, high quality cpr was initiated and ROSC was achieved after aprox 25 min, including a shock and amiodarone. called for neurological evaluation. on prorfol and fentanyl sedation, cooling protocol. No brain imaging noted. FU : off sedation since [address] reviewed-- suggestive of left occpital ischemia unresponsive - Alcohol/Substance Use Hx Alcohol Use: Yes (occas) - Smoking History Smoking history: Never smoked Home Medications - Allergies Allergies/Adverse Reactions: Allergies Allergy/AdvReac Type Severity Reaction Status Date / Time bacitracin Allergy Verified 03/27/18 10:06 cimetidine [From Tagamet] Allergy Verified 03/27/18 10:06 - Home Medications Home Medications: Ambulatory Orders Allopurinol 600 mg PO DAILY 07/21/17 Clopidogrel Bisulfate [Plavix -] 75 mg PO DAILY 07/21/17 Dapagliflozin Propanediol [Farxiga] 5 mg PO DAILY 07/21/17 Duloxetine HCl [Cymbalta -] 60 mg PO DAILY 07/21/17 Glipizide 5 mg PO DAILY 07/21/17 Insulin Glargine,Hum.rec.anlog [Lantus Solostar] 30 unit SQ HS 07/21/17 Metoprolol Tartrate 25 mg PO DAILY 07/21/17 Saxagliptin HCl [Onglyza] 5 mg PO DAILY 07/21/17 Simvastatin 40 mg PO HS 07/21/17 Silver Sulfadiazine 1% Top Cr [Silvadene -] 1 applic TP DAILY #1 jar 07/25/17 Aspirin [Adult Aspirin] 81 mg PO DAILY 03/16/18 Docusate Sodium [Colace] 400 mg PO DAILY 03/16/18 Fentanyl 50 mcg Q3D 03/16/18 Oxcarbazepine 600 mg PO BID 03/16/18 Tamsulosin HCl [Flomax] 0.4 mg PO DAILY 03/16/18 Acetaminophen [Tylenol .Regular Strength -] 650 mg PO Q4H PRN tablet 03/20/18 Cyclobenzaprine HCl [Flexeril -] 10 mg PO TID PRN tablet 03/20/18 Glycerin Suppository Adult - 1 each RC DAILY PRN supp.rect 03/20/18 Polyethylene Glycol 3350 [Miralax 119 gm Btl -] 17 gm PO DAILY bottle 03/20/18 Physical Exam-Neuro Vital Signs: Vital Signs Temperature 101.3 F H 03/30/18 08:00 Pulse Rate 86 03/30/18 09:24 Respiratory Rate 18 03/30/18 09:09 Blood Pressure 142/56 L 03/30/18 09:24 O2 Sat by Pulse Oximetry (%) 100 03/29/18 21:00 Labs: CBCD WBC 16.2 K/mm3 (4.0-10.0) H 03/29/18 05:30 RBC 4.11 M/mm3 (4.00-5.60) 03/29/18 05:30 Hgb 11.8 GM/dL (11.7-16.9) 03/29/18 05:30 Hct 35.5 % (35.4-49) 03/29/18 05:30 MCV 86.4 fl (80-96) 03/29/18 05:30 MCHC 33.3 g/dl (32.0-35.9) 03/29/18 05:30 RDW 16.7 % (11.9-15.9) H 03/29/18 05:30 Plt Count 126 K/MM3 (134-434) L D 03/29/18 05:30 MPV 7.6 fl (7.5-11.1) 03/29/18 05:30 CMP Sodium 139 mmol/L (136-145) 03/29/18 05:30 Potassium 3.5 mmol/L (3.5-5.1) 03/29/18 05:30 Chloride 106 mmol/L (98-107) 03/29/18 05:30 Carbon Dioxide 24 mmol/L (21-32) 03/29/18 05:30 Anion Gap 9 MMOL/L (8-16) 03/29/18 05:30 BUN 22 mg/dL (7-18) H 03/29/18 05:30 Creatinine 0.7 mg/dL (0.55-1.3) 03/29/18 05:30 Creat Clearance w eGFR > 60 (>60) 03/29/18 05:30 Calcium 8.1 mg/dL (8.5-10.1) L 03/29/18 05:30 Total Bilirubin 0.6 mg/dL (0.2-1) 03/29/18 05:30 AST 107 U/L (15-37) H 03/29/18 05:30 ALT 91 U/L (13-61) H 03/29/18 05:30 Alkaline Phosphatase 74 U/L (45-117) 03/29/18 05:30 Total Protein 5.0 g/dl (6.4-8.2) L 03/29/18 05:30 Albumin 2.4 g/dl (3.4-5.0) L 03/29/18 05:30 - Neuro Exam Level Of Consciousness: Yes: Sedated (on sedation and cooling protocol, breathing with vent 12/12, pupils fixed at 3 mm, no corneals or Dolls, no focal twtitching , no spont movements ) Problem List - Problems (1) Encephalopathy acute Code(s): G93.40 - ENCEPHALOPATHY, UNSPECIFIED (2) Cardiac arrest Code(s): I46.9 - CARDIAC ARREST, CAUSE UNSPECIFIED (3) Cardiogenic shock Code(s): R57.0 - CARDIOGENIC SHOCK Assessment/Plan 62 yo m w/ PMH chronic back pain, CAD s/p CABG 2019 on plavix (held before surg) , HTN, HLD, IDDM, BPH who presented for a L1-S1 laminectomyy and T12-S1 posterior instrumentation. Case proceeded w/o issue with ebl 1200, until patient desatted prior to bone grafting. Wound was closed patient was turned over, at which point he lost pulse in PEA. Code 99 was called, high quality cpr was initiated and ROSC was achieved after aprox 25 min, including a shock and amiodarone. called for neurological evaluation. on prorfol and fentanyl sedation, cooling protocol. No brain imaging noted. AP : possible anoxic brain injury though difficult to assess given sedation, limited exam at this juncture, though mechanism of injury concerning for underlying anoxic neurological injury off sedation now CT suspicious for ischemia left posterior circulation repeat HD CT in [address] SALAZAR Problem List - Problems (1) Encephalopathy acute Code(s): G93.40 - ENCEPHALOPATHY, UNSPECIFIED (2) Cardiac arrest Code(s): I46.9 - CARDIAC ARREST, CAUSE UNSPECIFIED (3) Cardiogenic shock Code(s): R57.0 - CARDIOGENIC SHOCK
[2018-03-30] MEDS: ASPIRIN 81 MG CHEWABLE TABLETS PO SCH (09:47)
[2018-03-30] MEDS: ARTIFICIAL TEARS (POLYVINYL ALCOHOL) OPTH DROPS OU PRN ×2 (09:48→17:18)
[2018-03-30] MEDS: SODIUM CHLORIDE 1,000 ML IV SCH (09:48)
[2018-03-30] MEDS ORDERED: ASPIRIN COATED 81 MG TABLET.EC PO SCH (10:00)
--- NOTE | 2018-03-30 10:45 | PN ---
Progress Note, Physician History of Present Illness: Overbreathing on mechanical ventilation off sedation, no arrhythmias on telemetry, hemodynamics stable. - Current Medication List Current Medications: Active Medications Acetaminophen (Ofirmev Injection -) 1,000 mg IVPB Q6H PRN PRN Reason: FEVER Last Admin: 03/30/18 07:44 Dose: 1,000 mg Artificial Tears (Artificial Tears) 1 drop OU BID PRN PRN Reason: DRY EYES Last Admin: 03/30/18 09:48 Dose: 1 drop Aspirin (Asa -) 81 mg PO DAILY SYLVIA Last Admin: 03/30/18 09:47 Dose: 81 mg Glycerin (Glycerin Suppository Adult -) 1 each RC DAILY PRN PRN Reason: CONSTIPATION Sodium Chloride (Normal Saline -) 1,000 mls @ 75 mls/hr IV ASDIR [facility] Last Admin: 03/30/18 09:48 Dose: 75 mls/hr Propofol (Diprivan -) 1,000,000 mcg in 100 mls @ 3.742 mls/hr IVPB TITR [facility]; Protocol Last Titration: 03/30/18 08:20 Dose: 0 mcg/kg/min, 0 mls/hr Fentanyl 500 mcg/ Dextrose 100 mls @ 1 mls/hr IVPB TITR [facility]; Protocol Last Titration: 03/30/18 08:20 Dose: 0 mcg/hr, 0 mls/hr Insulin Aspart (Novolog Vial Sliding Scale -) 1 vial SQ Q4HWA [facility]; Protocol Last Admin: 03/30/18 05:00 Dose: 2 units Insulin Detemir (Levemir Vial) 30 units SQ HS [facility] Last Admin: 03/29/18 21:06 Dose: 30 units Lisinopril (Prinivil) 5 mg NGT DAILY [facility] Last Admin: 03/30/18 09:24 Dose: 5 mg Metoprolol Tartrate (Lopressor Injection -) 5 mg IVPUSH Q4H-IV [facility] Last Admin: 03/30/18 09:24 Dose: 5 mg Ondansetron HCl (Zofran Injection) 4 mg IVPUSH Q6H PRN PRN Reason: NAUSEA AND/OR VOMITING Pantoprazole Sodium (Protonix Iv) 40 mg IVPUSH DAILY [facility] Last Admin: 03/30/18 09:24 Dose: 40 mg Tamsulosin HCl (Flomax -) 0.4 mg PO DAILY [facility] Last Admin: 03/30/18 09:55 Dose: Not Given - Objective Vital Signs: Vital Signs Temperature 100.7 F H 03/30/18 10:00 Pulse Rate 86 03/30/18 10:00 Respiratory Rate 23 H 03/30/18 10:15 Blood Pressure 149/66 03/30/18 10:00 O2 Sat by Pulse Oximetry (%) 100 03/29/18 21:00 Neck: Yes: Supple Cardiovascular: Yes: Regular Rate and Rhythm Respiratory: Yes: Intubated, Mechanically Ventilated, Rhonchi Gastrointestinal: Yes: Soft, Hypoactive Bowel Sounds Edema: No Labs: CBC, BMP 03/30/18 07:50 03/30/18 07:50 INR, PTT INR 1.19 (0.83-1.09) H 03/27/18 23:30 - ....Imaging EKG: Report Reviewed (Tele: SR hseldon JAMISON) Problem List - Problems (1) Status post lumbar laminectomy Code(s): Z98.890 - OTHER SPECIFIED POSTPROCEDURAL STATES (2) CAD (coronary artery disease) Code(s): I25.10 - ATHSCL HEART DISEASE OF [place] CORONARY ARTERY W/O ANG PCTRS Qualifiers: Coronary Disease-Associated Artery/Lesion type: [place] artery [place] vs. transplanted heart: [place] heart Associated angina: without angina Qualified Code(s): I25.10 - Atherosclerotic heart disease of [place] coronary artery without angina pectoris (3) Cardiac arrest Code(s): I46.9 - CARDIAC ARREST, CAUSE UNSPECIFIED (4) Encephalopathy acute Code(s): G93.40 - ENCEPHALOPATHY, UNSPECIFIED (5) HLD (hyperlipidemia) Code(s): E78.5 - HYPERLIPIDEMIA, UNSPECIFIED Qualifiers: Hyperlipidemia type: pure hypercholesterolemia Qualified Code(s): E78.00 - Pure hypercholesterolemia, unspecified; E78.0 - Pure hypercholesterolemia (6) HTN (hypertension) Code(s): I10 - ESSENTIAL (PRIMARY) HYPERTENSION Qualifiers: Hypertension type: essential hypertension Qualified Code(s): I10 - Essential (primary) hypertension (7) Hx of CABG Code(s): Z95.1 - PRESENCE OF AORTOCORONARY BYPASS GRAFT (8) Insulin dependent diabetes mellitus Code(s): E11.9 - TYPE 2 DIABETES MELLITUS WITHOUT COMPLICATIONS; Z79.4 - PRE BILLING CLINICIAN (CURRENT) USE OF INSULIN (9) Demand ischemia Code(s): I24.8 - OTHER FORMS OF ACUTE ISCHEMIC HEART DISEASE Assessment/Plan 03/28/2018 Echocardiography report noted, normal LV systolic function, with LVEF 0f 55%, walll motion cannot be assessed (upon study review there is abnormal septal motion consistent with prior open heart surgery) no significant valvular pathology, normal RV size and fxn. 03/29/2018 CT suspicious for ischemia left posterior circulation ASSESSMENT: 1. Post cardiopulmonary arrest/pulse-less electrical activity, ventricular tachycardia post resuscitation currently ventilator-dependent 2. Post operative day #3 post L1-S1 laminectomy and T12-S1 posterior instrumentation 3. Anoxic brain injury to be considered in view of above clinical presentation 4. CAD post CABG angina pectoris with demand ischemia - troponins have peaked 5. LV diastolic dysfunction with class 0 NYHA classification LV failure 6. HTN 7. DM 8. hypercholesterolemia PLAN: 1. Change to Lopressor 25 bid, continue lisinopril 5 qd and ASA 81 qd, resume Lipitor 20 qd 2. Hold off on Plavix resumption if additional intervention is planned 3. Neurology evaluation appreciated, plan for repeat HCT 48 hrs and EEG 4. Hold sedation s/p hypothermia protocol as tolerated 5. DVT/GI prophylaxis
[2018-03-30] MEDS: METOPROLOL TARTRATE 25 MG TABLET (FP) NGT SCH ×2 (11:06→21:46)
[2018-03-30] MEDS ORDERED: ENOXAPARIN NA (PORCINE) 40 MG/0.4 ML DISP.SYRIN SQ SCH (11:15)
--- NOTE | 2018-03-30 11:46 | PN ---
Progress Note (short form) - Note Progress Note: ID Consult dictated S/P cardiopulmonary arrest Fever/ leukocytosis S/P laminectomy Diabetes mellitus Await c/s Empiric vancomycin/zosyn Critical care time 35min
[2018-03-30] MEDS ORDERED: MAGNESIUM SULF 50% (8.12 MEQ/2 ML-1 GM VIAL) IVPB ONE (12:50)
--- NOTE | 2018-03-30 12:57 | PN ---
Teaching Attending Note Name of Resident: China Randle ATTENDING PHYSICIAN STATEMENT I saw and evaluated the patient. I reviewed the resident's note and discussed the case with the resident. I agree with the resident's findings and plan as documented. SUBJECTIVE: Pt seen and examined in the ICU. Remains intubated, now off sedation eyes open without significant response. Febrile overnight. OBJECTIVE: Vital Signs Period Temp Pulse Resp BP Sys/Martinez Pulse Ox Last 24 Hr 98.7 F-101.7 F 81-99 14-41 99-160/52-93 99-100 Intake & Output 03/27/18 03/28/18 03/29/18 03/30/18 23:59 23:59 23:59 23:59 Intake Total 4500 3319.5 3302 1440 Output Total 1400 1500 2350 450 Balance 3100 1819.5 952 990 Weight 124.738 kg 129.8 kg Gen: intubated, poorly responsive Heart: RRR Lung: decreased breath sounds at the bases Abd: soft, nontender Ext: + edema CBC, BMP 03/30/18 07:50 03/30/18 07:50 Active Medications Acetaminophen (Ofirmev Injection -) 1,000 mg IVPB Q6H PRN PRN Reason: FEVER Last Admin: 03/30/18 07:44 Dose: 1,000 mg Artificial Tears (Artificial Tears) 1 drop OU BID PRN PRN Reason: DRY EYES Last Admin: 03/30/18 09:48 Dose: 1 drop Aspirin (Asa -) 81 mg PO DAILY [facility] Last Admin: 03/30/18 09:47 Dose: 81 mg Atorvastatin Calcium (Lipitor -) 20 mg NGT HS [facility] Chlorhexidine Gluconate (Peridex -) 15 ml MM BID SY[facility]IA Glycerin (Glycerin Suppository Adult -) 1 each RC DAILY PRN PRN Reason: CONSTIPATION Propofol (Diprivan -) 1,000,000 mcg in 100 mls @ 3.742 mls/hr IVPB TITR [facility]; Protocol Last Titration: 03/30/18 08:20 Dose: 0 mcg/kg/min, 0 mls/hr Fentanyl 500 mcg/ Dextrose 100 mls @ 1 mls/hr IVPB TITR [facility]; Protocol Last Titration: 03/30/18 08:20 Dose: 0 mcg/hr, 0 mls/hr Vancomycin HCl (Vancomycin 1 Gm Premix -) 1 gm in 200 mls @ 133.333 mls/hr IVPB BID@0100,1300 [facility] Piperacillin Sod/Tazobactam (Sod 4.5 gm/ Dextrose) 100 mls @ 200 mls/hr IVPB Q8H-IV [facility]; Protocol Potassium Chloride (Potassium Chloride 10 Meq Premix Ivpb -) 10 meq in 100 mls @ 100 mls/hr IVPB Q60M [facility] Stop: 03/30/18 14:59 Insulin Aspart (Novolog Vial Sliding Scale -) 1 vial SQ Q4HWA [facility]; Protocol Last Admin: 03/30/18 11:05 Dose: 4 units Insulin Detemir (Levemir Vial) 30 units SQ HS [facility] Last Admin: 03/29/18 21:06 Dose: 30 units Lisinopril (Prinivil) 5 mg NGT DAILY [facility] Last Admin: 03/30/18 09:24 Dose: 5 mg Magnesium Sulfate (Magnesium Sulfate) 2 gm IVPB ONCE ONE Stop: 03/30/18 12:51 Metoprolol Tartrate (Lopressor -) 25 mg NGT BID [facility] Last Admin: 03/30/18 11:06 Dose: 25 mg Mupirocin (Bactroban Ointment (For Decolonization) -) 1 applic NS BID [facility] Stop: 04/04/18 12:29 Ondansetron HCl (Zofran Injection) 4 mg IVPUSH Q6H PRN PRN Reason: NAUSEA AND/OR VOMITING Pantoprazole Sodium (Protonix Iv) 40 mg IVPUSH DAILY [facility] Last Admin: 03/30/18 09:24 Dose: 40 mg Tamsulosin HCl (Flomax -) 0.4 mg PO DAILY [facility] Last Admin: 03/30/18 09:55 Dose: Not Given ASSESSMENT AND PLAN: s/p PEA/VTach Cardiopulmonary Arrest r/o Anoxic Encephalopathy s/p Lumbar Laminectomy CAD s/p CABG +Troponins likely Demand Ischemia LV Systolic/Diastolic Dysfunction HTN DM Hypercholesterolemia CKD - completed hypothermia protocol - beta blockers - start empiric antibiotics - f/u cultures - hold all sedation to assess mental status - enteral feeds - DVT/GI prophylaxis - continue ICU monitoring critical care time spent in reviewing chart, evaluating patient and formulating plan 35 min
--- NOTE | 2018-03-30 13:11 | CONS ---
INFECTIOUS DISEASE CONSULTATION DATE OF CONSULTATION: DATE OF DICTATION: 03/30/2018 The patient is a 62-year-old male who is evaluated for fever and leukocytosis. History was obtained from the chart as he cannot give a history. The patient has a history of progressively worsening motor and sensory deficit of the lower extremities, recurrent falls, and impending paralysis. He was found to have severe spinal stenosis. The patient was admitted to the hospital on March 27, 2018, for an elective laminectomy. He underwent a L1-S1 laminectomy, T12-S1 posterior instrumentation, pedicle screw instrumentation, posterior arthrodesis. His intraoperative course was complicated by cardiopulmonary arrest. The operative procedure was aborted. Patient received cardiopulmonary resuscitation for asystole after rapid wound closure was performed. According to the notes, he received CPR for approximately 20-25 minutes and received a shock. He was successfully resuscitated and transferred to the intensive care unit. In the intensive care unit, he was treated with de-cooling protocol. CAT scan of the head showed a possible left occipital infarct. His hospital course has been complicated by fever and elevated white blood cell count. His temperature was noted to be as high as 101.7. White blood cell count was markedly elevated at 20,000 with left shift. Cultures were obtained. At the present time, he is sedated on the ventilator. He is unresponsive, in no acute distress. PAST MEDICAL HISTORY: Positive for morbid obesity, diabetes mellitus, coronary artery disease, hypertension, hyperlipidemia, BPH, gouty arthritis. PAST SURGICAL HISTORY: Status post coronary artery bypass graft. ALLERGIES: BACITRACIN and CIMETIDINE. MEDICATIONS: Include Zofran, Flomax, Prinivil, Lopressor, propofol, Lipitor, Levemir, aspirin, Protonix. SOCIAL HISTORY: He resides in the community. He is a nonsmoker, occasional EtOH. SYSTEMS REVIEW: Neurologic: As per HPI. Cardiac: As per HPI. Respiratory: Now status post respiratory failure. Gastrointestinal: Negative vomiting or diarrhea. Genitourinary: Negative for urinary tract infection. LABORATORY DATA: White count of 15.6, hematocrit 30.0, platelets 168. BUN 25, creatinine 1.0. Blood and urine cultures are pending. PHYSICAL EXAMINATION: General: He is unresponsive on the ventilator. Vital Signs: Temperature 100.7, T-max 101.7; blood pressure 149/66; pulse 86, regular; respirations 18 per minute. HEENT: Sclerae are anicteric. Heart: Sounds S1, S2. Lungs: Mechanically ventilated. Air entry bilaterally. Abdomen: Obese, soft. No tenderness elicited. Extremities: Positive for edema. Skin: Surgical wound examined. The wound is well articulated. No evidence of infection. There is serosanguinous drainage noted from the wound. No gross purulence. IMPRESSION: 1. Status post cardiopulmonary arrest. 2. Fever and leukocytosis. 3. Status post laminectomy. 4. Diabetes mellitus. Await sepsis workup. Empiric antibiotic coverage for possible aspiration in the setting of cardiopulmonary arrest with vancomycin and Zosyn. continue supportive measures. Hemodynamic and ventilatory support. Prognosis is guarded. CRITICAL CARE TIME SPENT: Thirty-five minutes. Thank you for the kind referral. MONSE WILSON M.D. [id number]
[2018-03-30] MEDS ORDERED: PIPERACILLIN/TAZOBACTAM 4.5 GM VIAL IVPB ONE ×2 (13:12→17:07)
[2018-03-30] MEDS ORDERED: DEXTROSE 5%-WATER 100 ML IVPB ONE ×2 (13:12→17:07)
[2018-03-30] MEDS: PIPERACILLIN/TAZOB 4.5 GM 4.5 GM in DEXTROSE 5%-WATER 100 ML IVPB SCH ×2 (13:14→18:13)
[2018-03-30 13:18] LABS: URINE APPEARANCE SLCLOUDY; URINE BILIRUBIN NEGATIVE (<2.0 mg/dL); URINE COLOR YELLOW; URINE GLUCOSE (UA) 3+ (NEGATIVE); URINE KETONE 1+ (NEGATIVE); URINE LEUK ESTERASE NEGATIVE (NEGATIVE); URINE NITRITE NEGATIVE (NEGATIVE); URINE PROTEIN 2+ (NEGATIVE); URINE UROBILINOGEN NEGATIVE mg/dL (0.2-1.0)
[2018-03-30 13:21] LABS: URINE MUCUS RARE
[2018-03-30] MEDS: VANCOMYCIN 1 GM PREMIX - 1 GM/200 ML BAG IVPB SCH (13:26)
[2018-03-30] MEDS ORDERED: MAGNESIUM SULFATE IN WATER 2 GM/50 ML IVPB IVPB ONE (14:00)
[2018-03-30] MEDS: MUPIROCIN 2% TOPICAL OINTMENT FOR DECOLONIZATION NS SCH ×2 (14:00→21:46)
[2018-03-30] MEDS: CHLORHEXIDINE GLUCONATE 0.12% 15ML CUP MM SCH ×2 (14:13→21:47)
--- NOTE | 2018-03-30 15:28 | PN ---
Physical Exam: SUBJECTIVE: - Overnight, started back on fentanyl drip at 100, propofol increased to 50 - Off sedation in morning - Trialed CPAP for ~30 minutes - Back minimal sedation around 1pm - Febrile to 101.7. Blood and urine cultures sent. Sputum cultures ordered - ID consulted - emperic vanc/zosyn started. Wound culture sent. OBJECTIVE: Vital Signs Period Temp Pulse Resp BP Sys/Martinez Pulse Ox Last 24 Hr 99.3 F-101.7 F 81-99 14-41 99-172/52-110 99-100 General: Intubated. Off sedation, no purposeful movements HEENT: Pupils sluggish but equal and reactive. RIJ in place. Cards: RRR, no murmur appreciated Pulm: Mechanically ventilated Abd: Soft, nondistended Ext: No LE edema. : Jimenez in place, draining freely Skin: Pale Neuro: Opens eyes, no eye movements noted. No limb movement observed. Appropriate gag reflex. Laboratory Results - last 24 hr 03/29/18 03/29/18 03/29/18 14:00 17:30 18:03 WBC RBC Hgb Hct MCV MCH MCHC RDW Plt Count MPV Absolute Neuts (auto) Neutrophils % Lymphocytes % Monocytes % Eosinophils % Basophils % Nucleated RBC % Sodium Potassium Chloride Carbon Dioxide Anion Gap BUN Creatinine Creat Clearance w eGFR POC Glucometer [phone] Random Glucose Lactic Acid 1.7 Calcium Phosphorus Magnesium Total Bilirubin AST ALT Alkaline Phosphatase Total Protein Albumin Urine Color Urine Appearance Urine pH Ur Specific [place] Urine Protein Urine Glucose (UA) Urine Ketones Urine Blood Urine Nitrite Urine Bilirubin Urine Urobilinogen Ur Leukocyte Esterase Urine WBC (Auto) Urine RBC (Auto) Urine Mucus 03/29/18 03/30/18 03/30/18 21:04 04:58 07:50 WBC 15.6 H RBC 3.44 L Hgb 10.0 L Hct 30.0 L D MCV 87.1 MCH 29.2 MCHC 33.5 RDW 17.2 H Plt Count 168 D MPV 8.5 D Absolute Neuts (auto) 13.4 H Neutrophils % 86.1 H Lymphocytes % 7.1 L D Monocytes % 6.0 Eosinophils % 0.7 D Basophils % 0.1 D Nucleated RBC % 0 Sodium Potassium Chloride Carbon Dioxide Anion Gap BUN Creatinine Creat Clearance w eGFR POC Glucometer [phone] Random Glucose Lactic Acid Calcium Phosphorus Magnesium Total Bilirubin AST ALT Alkaline Phosphatase Total Protein Albumin Urine Color Urine Appearance Urine pH Ur Specific [place] Urine Protein Urine Glucose (UA) Urine Ketones Urine Blood Urine Nitrite Urine Bilirubin Urine Urobilinogen Ur Leukocyte Esterase Urine WBC (Auto) Urine RBC (Auto) Urine Mucus 03/30/18 03/30/18 03/30/18 07:50 11:00 11:01 WBC RBC Hgb Hct MCV MCH MCHC RDW Plt Count MPV Absolute Neuts (auto) Neutrophils % Lymphocytes % Monocytes % Eosinophils % Basophils % Nucleated RBC % Sodium 140 Potassium 3.7 Chloride 108 H Carbon Dioxide 27 Anion Gap 5 L BUN 25 H Creatinine 1.0 Creat Clearance w eGFR > 60 POC Glucometer [phone] Random Glucose 161 H Lactic Acid Calcium 7.8 L Phosphorus 2.5 Magnesium 2.1 Total Bilirubin 0.5 AST 43 H ALT 53 Alkaline Phosphatase 74 Total Protein 4.9 L Albumin 2.1 L Urine Color Yellow Urine Appearance Slcloudy Urine pH 5.0 Ur Specific [place] 1.028 Urine Protein 2+ H Urine Glucose (UA) 3+ H Urine Ketones 1+ H Urine Blood Negative Urine Nitrite Negative Urine Bilirubin Negative Urine Urobilinogen Negative Ur Leukocyte Esterase Negative Urine WBC (Auto) 10-20 Urine RBC (Auto) 40-60 Urine Mucus Rare Active Medications Generic Name Dose Route Start Last Admin Trade Name Eliotq PRN Reason Stop Dose Admin Acetaminophen 1,000 mg 03/30/18 00:22 03/30/18 14:21 Ofirmev Injection - IVPB 1,000 mg Q6H PRN Administration FEVER Artificial Tears 1 drop 03/28/18 07:59 03/30/18 09:48 Artificial Tears OU 1 drop BID PRN Administration DRY EYES Aspirin 81 mg 03/30/18 10:00 03/30/18 09:47 Asa - PO 81 mg DAILY SYLVIA Administration Atorvastatin Calcium 20 mg 03/30/18 22:00 Lipitor - NGT HS SYLVIA Chlorhexidine Gluconate 15 ml 03/30/18 12:30 03/30/18 14:13 Peridex - MM 15 ml BID SYLVIA Administration Glycerin 1 each 03/27/18 21:55 Glycerin Suppository Adult - RC DAILY PRN CONSTIPATION Propofol 1,000,000 mcg in 100 mls @ 3.742 mls/hr 03/29/18 15:45 03/30/18 13: 05 Diprivan - IVPB 10 mcg/kg/min TITR SYLVIA 7.484 mls/hr Titration Protocol 5 MCG/KG/MIN Fentanyl 500 mcg/ Dextrose 100 mls @ 1 mls/hr 03/29/18 20:30 03/30/18 08:20 IVPB 0 mcg/hr TITR SYLVIA 0 mls/hr Titration Protocol 5 MCG/HR Vancomycin HCl 1 gm in 200 mls @ 133.333 mls/hr 03/30/18 13:00 03/30/18 13:26 Vancomycin 1 Gm Premix - IVPB 133.333 mls/hr BID@0100,1300 SYLVIA Administration Piperacillin Sod/Tazobactam 100 mls @ 200 mls/hr 03/30/18 12:00 03/30/18 13: 14 Sod 4.5 gm/ Dextrose IVPB 200 mls/hr Q8H-IV SYLVIA Administration Protocol Potassium Chloride 10 meq in 100 mls @ 100 mls/hr 03/30/18 13:45 Potassium Chloride 10 Meq Premix Ivpb - IVPB 03/30/18 15:44 Q60M SYLVIA Insulin Aspart 1 vial 03/28/18 14:00 03/30/18 14:42 Novolog Vial Sliding Scale - SQ 2 units Q4HWA SYLVIA Administration Protocol Insulin Detemir 30 units 03/27/18 22:00 03/29/18 21:06 Levemir Vial SQ 30 units HS SYLVIA Administration Lisinopril 5 mg 03/29/18 12:45 03/30/18 09:24 Prinivil NGT 5 mg DAILY SYLVIA Administration Metoprolol Tartrate 25 mg 03/30/18 11:00 03/30/18 11:06 Lopressor - NGT 25 mg BID SYLVIA Administration Mupirocin 1 applic 03/30/18 12:30 Bactroban Ointment (For Decolonization) - NS 04/04/18 12:29 BID [facility] Ondansetron HCl 4 mg 03/27/18 21:56 Zofran Injection IVPUSH Q6H PRN NAUSEA AND/OR VOMITING Pantoprazole Sodium 40 mg 03/28/18 10:30 03/30/18 09:24 Protonix Iv IVPUSH 40 mg DAILY SYLVIA Administration Tamsulosin HCl 0.4 mg 03/28/18 10:00 03/30/18 09:55 Flomax - PO Not Given DAILY SYLVIA ASSESSMENT/PLAN: Marco Land is a 62yo man with a PMH of CAD s/p CABG, HTN, HLD, IDDM, chronic back pain due to spinal stnosis with rapid neurological decline. He presented yesterday for a planned spinal surgery and suffered a cardac arrest in the OR. ROSC was achieved after 26 minutes of CPR, and he was transferred to the ICU. Cooling protocol and re-warming completed. He remains in critical condition in the ICU. Neuro: - Concern for hypoxic brain injury given length of code - CT head with faint low attenuation in left occipital lobe. Repeat CT head tomorrow per neuro. - Off sedation as tolerated. Minimal propofol currently at 10 - Neuro following CV: - s/p cardiac arrest. H/o CAD, CABG, HTN - Cardiology following - Cooling protocol completed - Echo completed, relatively normal, EF 55%, no right heart strain, no wall motion abnormalities - Elevated trops post-code, trended until decreasing. Peak 5.17. - Transition to PO metoprolol. Continue lisinopril 5mg daily, ASA 81 via NGT Pulm: - Mechanically ventilated - Current settings SIMV, 450cc, 35%, PEEP 5, rate 12. - Overbreathing vent - Weaning trials as tolerated - IS 10x per hour Heme: - Daily ASA. Continue to hold plavix per cards - Hgb downtrending, likely due to slight oozing into wound. - Monitor daily CBC GI: - NGT in place - TF started per educational aid recs - Daily PPI while intubated and with NGT - LFTs downtrending Renal: - Jimenez in place, adequate UOP - MIAN resolved - Holding home flomax ID: - Leukocytosis continuing to downtrend, to 15.6 from high of 20.3 - Most likely stress response to surgery, CPR, arrest but could also indicate infection or temperature disregulation secondary to arrest/hypoxia - Empiric vanc/zosyn - Dr Álvarze following - Monitor morning CBC Endo: - h/o IDDM - Continue ISS Q6hr - Sugars have been well controlled in high 100's - 200 Musc: - Paralytics D/C'd - Restraints in place per protocol - Monitoring back incision per nursing. No active bleeding overnight. - Dry dressing replaced today - Dressing to be replaced or reinforced as needed for oozing - Will contact Dr Rodriguez as needed if active bleeding is suspected PPx: - No pharmacologic DVT ppx postoperatively. SCDs in place. - PPI daily FEN: - TF (promote, goal 1750cc daily) - SLIV. 10cc free water flush per hour - Replete lytes PRN Dispo: - Critically ill patient requiring ongoing ICU-level care Seen and discussed with Dr Bright. China Randle PGY1 Visit type - Emergency Visit Emergency Visit: No - New Patient This patient is new to me today: No - Critical Care Critical Care patient: Yes Total Critical Care Time (in minutes): 45 Critical Care Statement: The care of this patient involved high complexity decision making to prevent further life threatening deterioration of the patient 's condition and/or to evaluate & treat vital organ system(s) failure or risk of failure.
[2018-03-30] MEDS: KCL 10 MEQ IVPB 10 MEQ/100 ML INFUS.BAG IVPB SCH ×2 (15:41→16:55)
[2018-03-30] MEDS: PROPOFOL 1,000,000 MCG/100 ML VIAL IVPB SCH ×2 (16:01→18:14)
--- NOTE | 2018-03-30 17:11 | PN ---
Teaching Attending Note Name of Resident: Isabella Velazquez ATTENDING PHYSICIAN STATEMENT I saw and evaluated the patient. I reviewed the resident's note and discussed the case with the resident. I agree with the resident's findings and plan as documented. SUBJECTIVE:sedated/intubated OBJECTIVE: Last Vital Signs Temp Pulse Resp BP Pulse Ox 101.4 F H 73 20 116/55 L 99 03/30/18 15:00 03/30/18 15:00 03/30/18 15:25 03/30/18 15:00 03/30/18 10:00 General sedated/intubated, non purposeful movements CV S1 S2 + Lungs coarse breath sounds anteriorly. Abdomen soft NT/ND obese Extremities no edema Neuro sluggish pupil response. does not withdraw to pain. negative dolls eyes ASSESSMENT AND PLAN: 62yo M with PMH Severe stenosis L2-L3 and L3-L4, HTN, DM and CAD S/p CABG presented for scheduled laminectomy however case was aborted due to de- saturation during the procedure and patient was flipped from prone position and noted to loose pulse and was PEA on the monitor. Code 99 was called and CPR initiated. received 1 shock and started on amio. ROSC achieved after approx 25mins. pt was started on hypothermia protocol and goal temp was achieved at 0800 this morning. 1. s/p cardiac arrest- s/p hypothermia protocol and re-warmed. cont lopressor/ acei/asa/statin. cardio on board 2. acute toxic/metabolic encephalopathy-concern for anoxic injury given prolonged CPR. Head CT showing questionable stroke. will repeat in 48H. obtain EEG. sedation vacation to assess mental status. neuro on board 3. Acute hypoxic respiratory failure-noted prior to cardiac arrest. s/p intubated. on SIMV this AM and tolerating. 4. Fever- Tm 101.7 with leukocytosis. no obvious signs of infection. unable to visualize wound but as per RN it appeared to be clean. will have to try to evaluate later. F/u Cx. start on empiric abx vanco/zosyn. ID consult 5. HTN-improved. titrate medications as needed 6. DM-BGM and iSS 7. DVT ppx- start hep sq 8. MICU monitoring The care of this patient involved high complexity decision making to prevent further life threatening deterioration of the patient's condition and/or to evaluate & treat vital organ system(s) failure or risk of failure. 40 mins
--- NOTE | 2018-03-30 19:42 | PN ---
Physical Exam: SUBJECTIVE: Patient seen and examined at bedside this morning. Patient was waking up overnight, propofol was increased and fentanyl drip was started. This AM, propofol and fentanyl was discontinued. Patient is sedated and intubated. OBJECTIVE: Vital Signs Period Temp Pulse Resp BP Sys/Martinez Pulse Ox Last 24 Hr 99.3 F-101.7 F 73-99 14-41 99-172/51-110 99-100 GENERAL: The patient is intubated, sedated and paralyzed. LUNGS: Coarse breath sounds. HEART: Regular rate and rhythm, S1, S2 without murmur, rub or gallop. ABDOMEN: Soft,obese, nondistended. EXTREMITIES: 2+ pulses, warm, well-perfused, no edema. Laboratory Results - last 24 hr 03/29/18 03/29/18 03/30/18 18:03 21:04 04:58 WBC RBC Hgb Hct MCV MCH MCHC RDW Plt Count MPV Absolute Neuts (auto) Neutrophils % Lymphocytes % Monocytes % Eosinophils % Basophils % Nucleated RBC % Sodium Potassium Chloride Carbon Dioxide Anion Gap BUN Creatinine Creat Clearance w eGFR POC Glucometer 261.72012 208.32439 [phone] Random Glucose Calcium Phosphorus Magnesium Total Bilirubin AST ALT Alkaline Phosphatase Total Protein Albumin Urine Color Urine Appearance Urine pH Ur Specific [place] Urine Protein Urine Glucose (UA) Urine Ketones Urine Blood Urine Nitrite Urine Bilirubin Urine Urobilinogen Ur Leukocyte Esterase Urine WBC (Auto) Urine RBC (Auto) Urine Mucus 03/30/18 03/30/18 03/30/18 07:50 07:50 11:00 WBC 15.6 H RBC 3.44 L Hgb 10.0 L Hct 30.0 L D MCV 87.1 MCH 29.2 MCHC 33.5 RDW 17.2 H Plt Count 168 D MPV 8.5 D Absolute Neuts (auto) 13.4 H Neutrophils % 86.1 H Lymphocytes % 7.1 L D Monocytes % 6.0 Eosinophils % 0.7 D Basophils % 0.1 D Nucleated RBC % 0 Sodium 140 Potassium 3.7 Chloride 108 H Carbon Dioxide 27 Anion Gap 5 L BUN 25 H Creatinine 1.0 Creat Clearance w eGFR > 60 POC Glucometer Random Glucose 161 H Calcium 7.8 L Phosphorus 2.5 Magnesium 2.1 Total Bilirubin 0.5 AST 43 H ALT 53 Alkaline Phosphatase 74 Total Protein 4.9 L Albumin 2.1 L Urine Color Yellow Urine Appearance Slcloudy Urine pH 5.0 Ur Specific [place] 1.028 Urine Protein 2+ H Urine Glucose (UA) 3+ H Urine Ketones 1+ H Urine Blood Negative Urine Nitrite Negative Urine Bilirubin Negative Urine Urobilinogen Negative Ur Leukocyte Esterase Negative Urine WBC (Auto) 10-20 Urine RBC (Auto) 40-60 Urine Mucus Rare 03/30/18 03/30/18 03/30/18 11:01 14:40 17:16 WBC RBC Hgb Hct MCV MCH MCHC RDW Plt Count MPV Absolute Neuts (auto) Neutrophils % Lymphocytes % Monocytes % Eosinophils % Basophils % Nucleated RBC % Sodium Potassium Chloride Carbon Dioxide Anion Gap BUN Creatinine Creat Clearance w eGFR POC Glucometer 208.53641 189.81900 198.59408 Random Glucose Calcium Phosphorus Magnesium Total Bilirubin AST ALT Alkaline Phosphatase Total Protein Albumin Urine Color Urine Appearance Urine pH Ur Specific [place] Urine Protein Urine Glucose (UA) Urine Ketones Urine Blood Urine Nitrite Urine Bilirubin Urine Urobilinogen Ur Leukocyte Esterase Urine WBC (Auto) Urine RBC (Auto) Urine Mucus Active Medications Generic Name Dose Route Start Last Admin Trade Name Freq PRN Reason Stop Dose Admin Acetaminophen 1,000 mg 03/30/18 00:22 03/30/18 14:21 Ofirmev Injection - IVPB 1,000 mg Q6H PRN Administration FEVER Artificial Tears 1 drop 03/28/18 07:59 03/30/18 17:18 Artificial Tears OU 1 drop BID PRN Administration DRY EYES Aspirin 81 mg 03/30/18 10:00 03/30/18 09:47 Asa - PO 81 mg DAILY SYLVIA Administration Atorvastatin Calcium 20 mg 03/30/18 22:00 Lipitor - NGT HS SYLVIA Chlorhexidine Gluconate 15 ml 03/30/18 12:30 03/30/18 14:13 Peridex - MM 15 ml BID SYLVIA Administration Glycerin 1 each 03/27/18 21:55 Glycerin Suppository Adult - RC DAILY PRN CONSTIPATION Heparin Sodium (Porcine) 5,000 unit 03/30/18 22:00 Heparin - SQ TID SYLVIA Propofol 1,000,000 mcg in 100 mls @ 3.742 mls/hr 03/29/18 15:45 03/30/18 18: 14 Diprivan - IVPB 30 mcg/kg/min TITR SYLVIA 22.453 mls/hr Administration Protocol 5 MCG/KG/MIN Fentanyl 500 mcg/ Dextrose 100 mls @ 1 mls/hr 03/29/18 20:30 03/30/18 08:20 IVPB 0 mcg/hr TITR SYLVIA 0 mls/hr Titration Protocol 5 MCG/HR Vancomycin HCl 1 gm in 200 mls @ 133.333 mls/hr 03/30/18 13:00 03/30/18 13:26 Vancomycin 1 Gm Premix - IVPB 133.333 mls/hr BID@0100,1300 SYLVIA Administration Piperacillin Sod/Tazobactam 100 mls @ 200 mls/hr 03/30/18 12:00 03/30/18 18: 13 Sod 4.5 gm/ Dextrose IVPB 200 mls/hr Q8H-IV SYLVIA Administration Protocol Insulin Aspart 1 vial 03/30/18 15:45 03/30/18 17:18 Novolog Vial Sliding Scale - SQ 2 units Q6HPO SYLVIA Administration Protocol Insulin Detemir 30 units 03/27/18 22:00 03/29/18 21:06 Levemir Vial SQ 30 units HS SYLVIA Administration Lisinopril 5 mg 03/29/18 12:45 03/30/18 09:24 Prinivil NGT 5 mg DAILY SYLVIA Administration Metoprolol Tartrate 25 mg 03/30/18 11:00 03/30/18 11:06 Lopressor - NGT 25 mg BID SYLVIA Administration Mupirocin 1 applic 03/30/18 12:30 03/30/18 14:00 Bactroban Ointment (For Decolonization) - NS 04/04/18 12:29 1 applic BID SYLVIA Administration Ondansetron HCl 4 mg 03/27/18 21:56 Zofran Injection IVPUSH Q6H PRN NAUSEA AND/OR VOMITING Pantoprazole Sodium 40 mg 03/28/18 10:30 03/30/18 09:24 Protonix Iv IVPUSH 40 mg DAILY SYLVIA Administration Tamsulosin HCl 0.4 mg 03/28/18 10:00 03/30/18 09:55 Flomax - PO Not Given DAILY SYLVIA ASSESSMENT/PLAN: Patient is a 62 year old male with past medical history of chronic low back pain , CAD s/p CABG on plavix (held prior to surgery), HTN, HLD, DM, and BPH presented as outpatient for planned L1-S1 laminectomy and T12-S1 posterior instrumented spinal fusion. During the surgery, patient became pulseless, ACLS protocol initiated, and ROSC achieved. #ROSC s/p cardiopulmonary arrest -Hypothermia protocol finished. -Cardiology (Dr. Bush) consulted. Recommendations appreciated. -Amiodarone drip discontinued. -IV Metoprolol switch to PO Lopressor BID via NGT. -Lisinopril 5mg daily and ASA 81mg started through NGT -hold off on Plavix resumption -Statins unless contraindicated. -Echocardiography - EF 55%, no right heart strain, no wall motion abnormalities -Mechanically ventilated. Weaning trials as tolerated. #Anoxic brain injury -Neurology consulted. Recommendations appreciated. -Minimal propofol. Off sedation as tolerated -Vecuronium drip and fentanyl drip discontinued. -Will reassess after sedation tapered off -Head CT- -Repeat head CT scan today. #Troponinemia -Troponin peaked at 5.17 and started to trend down to 3.12 -EKG done - no acute changes #Spinal Wound -Mid back incision with skin sutures but layered closure not completed due to cardiac arrest -Minimal bleeding into wound. -Monitor wound and daily CBC. #Leukocytosis: resolving -Likely reactive -Trending down today. -ID consulted. Recommendations appreciated. -Vancomycin and Zosyn started. -will continue to monitor #CAD s/p CABG -Continue ASA -hold home medication Plavix -will monitor #Hypertension -Metoprolol resumed. -Will monitor BP #DM -Discontinued insulin drip -Sliding scale implemented q4h -BGM q4h #MIAN: resolved -likely 2/2 pre-renal from poor perfusion during the arrest -Jimenez catheter placed -urine lytes ordered. -will monitor renal function #FEN -IV NS @ 125 ml/hr -Tube feeding (high protein, low kcal) -Routine bmp monitoring, will replete lytes as needed. #Prophylaxis -TEDs, SCDs #Disposition -ICU for close monitoring Visit type - Emergency Visit Emergency Visit: Yes ED Registration Date: 03/27/18 Care time: The patient presented to the Emergency Department on the above date and was hospitalized for further evaluation of their emergent condition. - New Patient This patient is new to me today: Yes Date on this admission: 03/31/18 - Critical Care Critical Care patient: Yes Total Critical Care Time (in minutes): 40 Critical Care Statement: The care of this patient involved high complexity decision making to prevent further life threatening deterioration of the patient 's condition and/or to evaluate & treat vital organ system(s) failure or risk of failure.
[2018-03-30] MEDS: ATORVASTATIN CA 20 MG TABLET (FP) NGT SCH (21:46)
[2018-03-30] MEDS: HEPARIN NA (PORCINE) 5,000 UNITS/ML 1ML VIAL SQ SCH (21:46)
[2018-03-30] MEDS: INSULIN (LEVEMIR) 100 UNITS/ML UNITS SQ SCH (21:47)
[2018-03-31] MEDS: INSULIN SLIDING SCALE (NOVOLOG) 1 VIAL SQ SCH ×5 (00:07→23:57)
[2018-03-31] MEDS: VANCOMYCIN 1 GM PREMIX - 1 GM/200 ML BAG IVPB SCH ×2 (01:06→13:29)
[2018-03-31] MEDS: PIPERACILLIN/TAZOB 4.5 GM 4.5 GM in DEXTROSE 5%-WATER 100 ML IVPB SCH ×3 (02:06→18:56)
[2018-03-31] MEDS ORDERED: PIPERACILLIN/TAZOBACTAM 4.5 GM VIAL IVPB ONE ×3 (03:01→18:44)
[2018-03-31] MEDS ORDERED: PT OWN MED DRAWER 7, Y5N ONE (03:02)
[2018-03-31] MEDS ORDERED: DEXTROSE 5%-WATER 100 ML IVPB ONE ×3 (03:02→18:44)
[2018-03-31] MEDS: HEPARIN NA (PORCINE) 5,000 UNITS/ML 1ML VIAL SQ SCH ×3 (05:54→21:39)
[2018-03-31 06:02] LABS: BASO % 0.1 % (0-2.0); EOS % 0.3 % (0-4.5); HEMATOCRIT 26.9 % (35.4-49); LYMPH % 7.3 % (8-40); MCH 29.2 pg (25.7-33.7); MCHC 33.6 g/dl (32.0-35.9); MEAN CELL VOLUME 86.9 fl (80-96); MEAN PLT VOLUME 8.5 fl (7.5-11.1); MONO % 6.9 % (3.8-10.2); NEUT % 85.4 % (42.8-82.8); PLATELET COUNT 171 K/MM3 (134-434); RBC 3.09 M/mm3 (4.00-5.60); RDW 16.4 % (11.9-15.9); WHITE BLOOD COUNT 13.3 K/mm3 (4.0-10.0)
[2018-03-31 06:28] LABS: ALBUMIN 1.9 g/dl (3.4-5.0); ANION GAP 8 MMOL/L (8-16); BILIRUBIN,TOTAL 0.8 mg/dL (0.2-1); BLOOD UREA NITROGEN 24 mg/dL (7-18); CHLORIDE 110 mmol/L (98-107); CO2 22 mmol/L (21-32); CREATININE 0.9 mg/dL (0.55-1.3); GLUCOSE,RANDOM 219 mg/dL (74-106); MAGNESIUM 2.4 mg/dL (1.8-2.4); POTASSIUM 3.5 mmol/L (3.5-5.1); SGOT/AST 27 U/L (15-37); SGPT/ALT 38 U/L (13-61); SODIUM 140 mmol/L (136-145); TOT PROT 4.8 g/dl (6.4-8.2)
[2018-03-31 06:29] LABS: ALK PHOS 116 U/L (45-117)
--- NOTE | 2018-03-31 06:56 | PN ---
Progress Note (short form) - Note Progress Note: 62 yo m w/ PMH chronic back pain, CAD s/p CABG 2019 on plavix (held before surg) , HTN, HLD, IDDM, BPH who presented for a L1-S1 laminectomyy and T12-S1 posterior instrumentation. Case proceeded w/o issue with ebl 1200, until patient desatted prior to bone grafting. Wound was closed patient was turned over, at which point he lost pulse in PEA. Code 99 was called, high quality cpr was initiated and ROSC was achieved after aprox 25 min, including a shock and amiodarone. called for neurological evaluation. on prorfol and fentanyl sedation, cooling protocol. No brain imaging noted. FU : occ eye twitch off sedation head CT reviewed-- prelim [employer] infarct and loss of ye white junction to eye suggestive of anoxic injury unresponsive - Alcohol/Substance Use Hx Alcohol Use: Yes (occas) - Smoking History Smoking history: Never smoked Home Medications - Allergies Allergies/Adverse Reactions: Allergies Allergy/AdvReac Type Severity Reaction Status Date / Time bacitracin Allergy Verified 03/27/18 10:06 cimetidine [From Tagamet] Allergy Verified 03/27/18 10:06 - Home Medications Home Medications: Ambulatory Orders Allopurinol 600 mg PO DAILY 07/21/17 Clopidogrel Bisulfate [Plavix -] 75 mg PO DAILY 07/21/17 Dapagliflozin Propanediol [Farxiga] 5 mg PO DAILY 07/21/17 Duloxetine HCl [Cymbalta -] 60 mg PO DAILY 07/21/17 Glipizide 5 mg PO DAILY 07/21/17 Insulin Glargine,Hum.rec.anlog [Lantus Solostar] 30 unit SQ HS 07/21/17 Metoprolol Tartrate 25 mg PO DAILY 07/21/17 Saxagliptin HCl [Onglyza] 5 mg PO DAILY 07/21/17 Simvastatin 40 mg PO HS 07/21/17 Silver Sulfadiazine 1% Top Cr [Silvadene -] 1 applic TP DAILY #1 jar 07/25/17 Aspirin [Adult Aspirin] 81 mg PO DAILY 03/16/18 Docusate Sodium [Colace] 400 mg PO DAILY 03/16/18 Fentanyl 50 mcg Q3D 03/16/18 Oxcarbazepine 600 mg PO BID 03/16/18 Tamsulosin HCl [Flomax] 0.4 mg PO DAILY 03/16/18 Acetaminophen [Tylenol .Regular Strength -] 650 mg PO Q4H PRN tablet 03/20/18 Cyclobenzaprine HCl [Flexeril -] 10 mg PO TID PRN tablet 03/20/18 Glycerin Suppository Adult - 1 each RC DAILY PRN supp.rect 03/20/18 Polyethylene Glycol 3350 [Miralax 119 gm Btl -] 17 gm PO DAILY bottle 03/20/18 Physical Exam-Neuro Vital Signs: Vital Signs Temperature 101.1 F H 03/31/18 06:00 Pulse Rate 81 03/31/18 06:00 Respiratory Rate 26 H 03/31/18 06:00 Blood Pressure 135/62 03/31/18 06:00 O2 Sat by Pulse Oximetry (%) 100 03/30/18 20:44 Labs: CBCD WBC 16.2 K/mm3 (4.0-10.0) H 03/29/18 05:30 RBC 4.11 M/mm3 (4.00-5.60) 03/29/18 05:30 Hgb 11.8 GM/dL (11.7-16.9) 03/29/18 05:30 Hct 35.5 % (35.4-49) 03/29/18 05:30 MCV 86.4 fl (80-96) 03/29/18 05:30 MCHC 33.3 g/dl (32.0-35.9) 03/29/18 05:30 RDW 16.7 % (11.9-15.9) H 03/29/18 05:30 Plt Count 126 K/MM3 (134-434) L D 03/29/18 05:30 MPV 7.6 fl (7.5-11.1) 03/29/18 05:30 CMP Sodium 139 mmol/L (136-145) 03/29/18 05:30 Potassium 3.5 mmol/L (3.5-5.1) 03/29/18 05:30 Chloride 106 mmol/L (98-107) 03/29/18 05:30 Carbon Dioxide 24 mmol/L (21-32) 03/29/18 05:30 Anion Gap 9 MMOL/L (8-16) 03/29/18 05:30 BUN 22 mg/dL (7-18) H 03/29/18 05:30 Creatinine 0.7 mg/dL (0.55-1.3) 03/29/18 05:30 Creat Clearance w eGFR > 60 (>60) 03/29/18 05:30 Calcium 8.1 mg/dL (8.5-10.1) L 03/29/18 05:30 Total Bilirubin 0.6 mg/dL (0.2-1) 03/29/18 05:30 AST 107 U/L (15-37) H 03/29/18 05:30 ALT 91 U/L (13-61) H 03/29/18 05:30 Alkaline Phosphatase 74 U/L (45-117) 03/29/18 05:30 Total Protein 5.0 g/dl (6.4-8.2) L 03/29/18 05:30 Albumin 2.4 g/dl (3.4-5.0) L 03/29/18 05:30 - Neuro Exam Level Of Consciousness: nonsedated, unresponsive, eyes upward, limited DOLLS , + corneals, occ eye twitching, no focal weakness , planatrs down Problem List - Problems (1) Encephalopathy acute Code(s): G93.40 - ENCEPHALOPATHY, UNSPECIFIED (2) Cardiac arrest Code(s): I46.9 - CARDIAC ARREST, CAUSE UNSPECIFIED (3) Cardiogenic shock Code(s): R57.0 - CARDIOGENIC SHOCK Assessment/Plan 62 yo m w/ PMH chronic back pain, CAD s/p CABG 2019 on plavix (held before surg) , HTN, HLD, IDDM, BPH who presented for a L1-S1 laminectomyy and T12-S1 posterior instrumentation. Case proceeded w/o issue with ebl 1200, until patient desatted prior to bone grafting. Wound was closed patient was turned over, at which point he lost pulse in PEA. Code 99 was called, high quality cpr was initiated and ROSC was achieved after aprox 25 min, including a shock and amiodarone. called for neurological evaluation. on prorfol and fentanyl sedation, cooling protocol. No brain imaging noted. AP : suspect anoxic brain injury, appears to have extensive cortical dsyfucntion and limited brainstem activity ( breathing over vent) possible nonconvulsive status off sedation RPT hD CT suggests loss of ye white junction , FU OFFICIAL loaded with dilantin --spoke to resident , FU EEG , FU levels poor prognosis given mechanism of injury and current exam and CT findings DR SALAZAR Problem List - Problems (1) Encephalopathy acute Code(s): G93.40 - ENCEPHALOPATHY, UNSPECIFIED (2) Cardiac arrest Code(s): I46.9 - CARDIAC ARREST, CAUSE UNSPECIFIED (3) Cardiogenic shock Code(s): R57.0 - CARDIOGENIC SHOCK
[2018-03-31] MEDS ORDERED: ACETAMINOPHEN 1000 MG/100 ML VIAL (NON FORMULARY) IVPB ONE (07:28)
[2018-03-31] MEDS ORDERED: FOSPHENYTOIN SODIUM 1,000 MG in SODIUM CHLORIDE 100 ML IVPB ONE (07:45)
[2018-03-31] MEDS ORDERED: PHENYTOIN SODIUM 100 MG/2 ML VIAL IVPB ONE (07:45)
[2018-03-31] MEDS: TAMSULOSIN HCL 0.4 MG CAP PO SCH (09:27)
[2018-03-31] MEDS: CHLORHEXIDINE GLUCONATE 0.12% 15ML CUP MM SCH ×2 (09:27→21:40)
[2018-03-31] MEDS: LISINOPRIL 5 MG TABLET (FP) NGT SCH (09:27)
[2018-03-31] MEDS: ASPIRIN 81 MG CHEWABLE TABLETS PO SCH (09:27)
[2018-03-31] MEDS: PANTOPRAZOLE SODIUM 40 MG VIAL IVPUSH SCH (09:29)
[2018-03-31] MEDS ORDERED: POTASSIUM PHOSPHATE 40 MM in SODIUM CHLORIDE 250 ML IVPB ONE (09:30)
--- NOTE | 2018-03-31 09:42 | PN ---
Progress Note, Physician History of Present Illness: Remains on mechanical ventilation off sedation, no arrhythmias on telemetry, hemodynamics stable, facial twitching noted, ongoing fevers. - Current Medication List Current Medications: Active Medications Artificial Tears (Artificial Tears) 1 drop OU BID PRN PRN Reason: DRY EYES Last Admin: 03/30/18 17:18 Dose: 1 drop Aspirin (Asa -) 81 mg PO DAILY [facility] Last Admin: 03/31/18 09:27 Dose: 81 mg Atorvastatin Calcium (Lipitor -) 20 mg NGT HS [facility] Last Admin: 03/30/18 21:46 Dose: 20 mg Chlorhexidine Gluconate (Peridex -) 15 ml MM BID [facility] Last Admin: 03/31/18 09:27 Dose: 15 ml Glycerin (Glycerin Suppository Adult -) 1 each RC DAILY PRN PRN Reason: CONSTIPATION Heparin Sodium (Porcine) (Heparin -) 5,000 unit SQ TID [facility] Last Admin: 03/31/18 05:54 Dose: 5,000 unit Propofol (Diprivan -) 1,000,000 mcg in 100 mls @ 3.742 mls/hr IVPB TITR [facility]; Protocol Last Admin: 03/30/18 18:14 Dose: 30 mcg/kg/min, 22.453 mls/hr Fentanyl 500 mcg/ Dextrose 100 mls @ 1 mls/hr IVPB TITR [facility]; Protocol Last Titration: 03/30/18 08:20 Dose: 0 mcg/hr, 0 mls/hr Vancomycin HCl (Vancomycin 1 Gm Premix -) 1 gm in 200 mls @ 133.333 mls/hr IVPB BID@0100,1300 [facility] Last Admin: 03/31/18 01:06 Dose: 133.333 mls/hr Piperacillin Sod/Tazobactam (Sod 4.5 gm/ Dextrose) 100 mls @ 200 mls/hr IVPB Q8H-IV [facility]; Protocol Last Admin: 03/31/18 09:29 Dose: 200 mls/hr Potassium Phosphate 40 mm/ (Sodium Chloride) 263.3333 mls @ 62.5 mls/hr IVPB ONCE ONE Stop: 03/31/18 13:42 Insulin Aspart (Novolog Vial Sliding Scale -) 1 vial SQ Q6HPO [facility]; Protocol Last Admin: 03/31/18 05:54 Dose: 4 units Insulin Detemir (Levemir Vial) 30 units SQ HS [facility] Last Admin: 03/30/18 21:47 Dose: 30 units Lisinopril (Prinivil) 5 mg NGT DAILY [facility] Last Admin: 03/31/18 09:27 Dose: 5 mg Metoprolol Tartrate (Lopressor -) 25 mg NGT BID [facility] Last Admin: 03/30/18 21:46 Dose: 25 mg Mupirocin (Bactroban Ointment (For Decolonization) -) 1 applic NS BID [facility] Stop: 04/04/18 12:29 Last Admin: 03/30/18 21:46 Dose: 1 applic Ondansetron HCl (Zofran Injection) 4 mg IVPUSH Q6H PRN PRN Reason: NAUSEA AND/OR VOMITING Pantoprazole Sodium (Protonix Iv) 40 mg IVPUSH DAILY [facility] Last Admin: 03/31/18 09:29 Dose: 40 mg Tamsulosin HCl (Flomax -) 0.4 mg PO DAILY [facility] Last Admin: 03/31/18 09:27 Dose: 0.4 mg - Objective Vital Signs: Vital Signs Temperature 100.8 F H 03/31/18 09:00 Pulse Rate 81 03/31/18 09:00 Respiratory Rate 24 H 03/31/18 09:00 Blood Pressure 138/62 03/31/18 09:00 O2 Sat by Pulse Oximetry (%) 100 03/31/18 07:44 Cardiovascular: Yes: Regular Rate and Rhythm Respiratory: Yes: Intubated, Mechanically Ventilated, Rhonchi Gastrointestinal: Yes: Normal Bowel Sounds, Soft Edema: No Labs: CBC, BMP 03/31/18 05:30 03/31/18 05:30 INR, PTT INR 1.19 (0.83-1.09) H 03/27/18 23:30 - ....Imaging Chest X-ray: Report Reviewed (NAD) Cat Scan: Report Reviewed (Evolving left [employer] stroke) EKG: Report Reviewed (Tele: NSR) Problem List - Problems (1) Status post lumbar laminectomy Code(s): Z98.890 - OTHER SPECIFIED POSTPROCEDURAL STATES (2) CAD (coronary artery disease) Code(s): I25.10 - ATHSCL HEART DISEASE OF [place] CORONARY ARTERY W/O ANG PCTRS Qualifiers: Coronary Disease-Associated Artery/Lesion type: [place] artery [place] vs. transplanted heart: [place] heart Associated angina: without angina Qualified Code(s): I25.10 - Atherosclerotic heart disease of [place] coronary artery without angina pectoris (3) Cardiac arrest Code(s): I46.9 - CARDIAC ARREST, CAUSE UNSPECIFIED (4) Encephalopathy acute Code(s): G93.40 - ENCEPHALOPATHY, UNSPECIFIED (5) HLD (hyperlipidemia) Code(s): E78.5 - HYPERLIPIDEMIA, UNSPECIFIED Qualifiers: Hyperlipidemia type: pure hypercholesterolemia Qualified Code(s): E78.00 - Pure hypercholesterolemia, unspecified; E78.0 - Pure hypercholesterolemia (6) HTN (hypertension) Code(s): I10 - ESSENTIAL (PRIMARY) HYPERTENSION Qualifiers: Hypertension type: essential hypertension Qualified Code(s): I10 - Essential (primary) hypertension (7) Hx of CABG Code(s): Z95.1 - PRESENCE OF AORTOCORONARY BYPASS GRAFT (8) Insulin dependent diabetes mellitus Code(s): E11.9 - TYPE 2 DIABETES MELLITUS WITHOUT COMPLICATIONS; Z79.4 - SNF (CURRENT) USE OF INSULIN (9) Demand ischemia Code(s): I24.8 - OTHER FORMS OF ACUTE ISCHEMIC HEART DISEASE Assessment/Plan 03/28/2018 Echocardiography report noted, normal LV systolic function, with LVEF 0f 55%, walll motion cannot be assessed (upon study review there is abnormal septal motion consistent with prior open heart surgery) no significant valvular pathology, normal RV size and fxn. 03/29/2018 CT suspicious for ischemia left posterior circulation ASSESSMENT: 1. Post cardiopulmonary arrest/pulse-less electrical activity, ventricular tachycardia post resuscitation currently ventilator-dependent 2. Post operative day #4 post L1-S1 laminectomy and T12-S1 posterior instrumentation 3. Anoxic brain injury to be considered in view of above clinical presentation 4. CAD post CABG angina pectoris with demand ischemia - troponins have peaked 5. LV diastolic dysfunction with class 0 NYHA classification LV failure 6. HTN 7. DM 8. hypercholesterolemia PLAN: 1. Continue Lopressor 25 bid, lisinopril 5 qd, ASA 81 qd, and Lipitor 20 qd 2. Hold off on Plavix resumption if additional intervention is planned 3. Neurology evaluation appreciated, plan for EEG, seizure prophylaxis 4. Hold sedation s/p hypothermia protocol as tolerated 5. Empiric abx coverage per ID for open wound and fever, f/u C&S 6. DVT/GI prophylaxis
[2018-03-31] MEDS: MUPIROCIN 2% TOPICAL OINTMENT FOR DECOLONIZATION NS SCH ×2 (09:58→21:39)
[2018-03-31] MEDS: PROPOFOL 1,000,000 MCG/100 ML VIAL IVPB SCH ×2 (10:04→16:11)
--- NOTE | 2018-03-31 10:37 | PN ---
Progress Note, Physician History of Present Illness: Sedated/unresponsive on ventilator Unremitting fever WBC improved Cultures prelim no growth - Current Medication List Current Medications: Active Medications Artificial Tears (Artificial Tears) 1 drop OU BID PRN PRN Reason: DRY EYES Last Admin: 03/30/18 17:18 Dose: 1 drop Aspirin (Asa -) 81 mg PO DAILY [facility] Last Admin: 03/31/18 09:27 Dose: 81 mg Atorvastatin Calcium (Lipitor -) 20 mg NGT HS [facility] Last Admin: 03/30/18 21:46 Dose: 20 mg Chlorhexidine Gluconate (Peridex -) 15 ml MM BID [facility] Last Admin: 03/31/18 09:27 Dose: 15 ml Glycerin (Glycerin Suppository Adult -) 1 each RC DAILY PRN PRN Reason: CONSTIPATION Heparin Sodium (Porcine) (Heparin -) 5,000 unit SQ TID [facility] Last Admin: 03/31/18 05:54 Dose: 5,000 unit Propofol (Diprivan -) 1,000,000 mcg in 100 mls @ 3.742 mls/hr IVPB TITR [facility]; Protocol Last Admin: 03/31/18 10:04 Dose: 25 mcg/kg/min, 18.711 mls/hr Fentanyl 500 mcg/ Dextrose 100 mls @ 1 mls/hr IVPB TITR [facility]; Protocol Last Titration: 03/30/18 08:20 Dose: 0 mcg/hr, 0 mls/hr Vancomycin HCl (Vancomycin 1 Gm Premix -) 1 gm in 200 mls @ 133.333 mls/hr IVPB BID@0100,1300 [facility] Last Admin: 03/31/18 01:06 Dose: 133.333 mls/hr Piperacillin Sod/Tazobactam (Sod 4.5 gm/ Dextrose) 100 mls @ 200 mls/hr IVPB Q8H-IV [facility]; Protocol Last Admin: 03/31/18 09:29 Dose: 200 mls/hr Potassium Phosphate 40 mm/ (Sodium Chloride) 263.3333 mls @ 62.5 mls/hr IVPB ONCE ONE Stop: 03/31/18 13:42 Last Admin: 03/31/18 09:58 Dose: 62.5 mls/hr Insulin Aspart (Novolog Vial Sliding Scale -) 1 vial SQ Q6HPO [facility]; Protocol Last Admin: 10/05/18 05:54 Dose: 4 units Insulin Detemir (Levemir Vial) 30 units SQ HS [facility] Last Admin: 03/30/18 21:47 Dose: 30 units Lisinopril (Prinivil) 5 mg NGT DAILY [facility] Last Admin: 03/31/18 09:27 Dose: 5 mg Metoprolol Tartrate (Lopressor -) 25 mg NGT BID [facility] Last Admin: 03/30/18 21:46 Dose: 25 mg Mupirocin (Bactroban Ointment (For Decolonization) -) 1 applic NS BID [facility] Stop: 04/04/18 12:29 Last Admin: 03/31/18 09:58 Dose: 1 applic Ondansetron HCl (Zofran Injection) 4 mg IVPUSH Q6H PRN PRN Reason: NAUSEA AND/OR VOMITING Pantoprazole Sodium (Protonix Iv) 40 mg IVPUSH DAILY [facility] Last Admin: 03/31/18 09:29 Dose: 40 mg Tamsulosin HCl (Flomax -) 0.4 mg PO DAILY [facility] Last Admin: 03/31/18 09:27 Dose: 0.4 mg - Objective Vital Signs: Vital Signs Temperature 100.8 F H 03/31/18 09:00 Pulse Rate 81 03/31/18 09:00 Respiratory Rate 24 H 03/31/18 09:00 Blood Pressure 138/62 03/31/18 09:00 O2 Sat by Pulse Oximetry (%) 100 03/31/18 07:44 Constitutional: Yes: No Distress, Obese Eyes: Yes: Conjunctiva Clear Cardiovascular: Yes: Regular Rate and Rhythm, S1, S2 Respiratory: Yes: Mechanically Ventilated Gastrointestinal: Yes: Normal Bowel Sounds, Soft, Abdomen, Obese. No: Tenderness Edema: Yes Edema: LLE: 2+, RLE: 2+ Labs: CBC, BMP 03/31/18 05:30 03/31/18 05:30 INR, PTT INR 1.19 (0.83-1.09) H 03/27/18 23:30 Assessment/Plan S/P cardiopulmonary arrest Fever/ leukocytosis R/O sepsis ? Central fever S/P laminectomy Diabetes mellitus Pending c/s continue empiric zosyn/ vancomycin ventilatory/ hemodynamic support Prognosis guarded
[2018-03-31] MEDS: METOPROLOL TARTRATE 25 MG TABLET (FP) NGT SCH ×2 (11:00→21:40)
[2018-03-31] MEDS ORDERED: INSULIN (NOVOLOG) ASPART 100 UNITS/ML 10ML VIAL ONE (13:28)
--- NOTE | 2018-03-31 14:26 | PN ---
Physical Exam: SUBJECTIVE: - Repeat CT head today shows L occipital acute/subacute infarct - Tolerated minimal sedation this morning - Continued fevers up to 102.4 overnight OBJECTIVE: Vital Signs Period Temp Pulse Resp BP Sys/Martinez Pulse Ox Last 24 Hr 100.1 F-102.4 F 63-87 14-28 105-148/49-70 99-100 General: Intubated. On sedation, no purposeful movements HEENT: Upward gaze. R eye deviated to right. Pupils sluggish but equal and reactive. RIJ in place. NTG with TF running. Cards: RRR, no murmur appreciated Pulm: Mechanically ventilated. Overbreathing vent to rate in low 20's. Abd: Soft, nondistended Ext: No LE edema. : Jimenez in place, draining freely Skin: Pale Neuro: Sedated. Opens eyes, no eye movements noted. No limb movement observed. Appropriate gag reflex. Laboratory Results - last 24 hr 03/30/18 03/30/18 03/30/18 14:40 17:16 21:22 WBC RBC Hgb Hct MCV MCH MCHC RDW Plt Count MPV Absolute Neuts (auto) Neutrophils % Lymphocytes % Monocytes % Eosinophils % Basophils % Nucleated RBC % Sodium Potassium Chloride Carbon Dioxide Anion Gap BUN Creatinine Creat Clearance w eGFR POC Glucometer 189.45079 198.63939 181.00273 Random Glucose Calcium Phosphorus Magnesium Total Bilirubin AST ALT Alkaline Phosphatase Total Protein Albumin 03/31/18 03/31/18 03/31/18 05:30 05:30 05:47 WBC 13.3 H RBC 3.09 L Hgb 9.0 L Hct 26.9 L MCV 86.9 MCH 29.2 MCHC 33.6 RDW 16.4 H Plt Count 171 MPV 8.5 Absolute Neuts (auto) 11.4 H Neutrophils % 85.4 H Lymphocytes % 7.3 L Monocytes % 6.9 Eosinophils % 0.3 Basophils % 0.1 Nucleated RBC % 0 Sodium 140 Potassium 3.5 Chloride 110 H Carbon Dioxide 22 Anion Gap 8 BUN 24 H Creatinine 0.9 Creat Clearance w eGFR > 60 POC Glucometer [phone] Random Glucose 219 H Calcium 8.0 L Phosphorus 2.0 L Magnesium 2.4 Total Bilirubin 0.8 AST 27 ALT 38 Alkaline Phosphatase 116 Total Protein 4.8 L Albumin 1.9 L Active Medications Generic Name Dose Route Start Last Admin Trade Name Freq PRN Reason Stop Dose Admin Artificial Tears 1 drop 03/28/18 07:59 03/30/18 17:18 Artificial Tears OU 1 drop BID PRN Administration DRY EYES Aspirin 81 mg 03/30/18 10:00 03/31/18 09:27 Asa - PO 81 mg DAILY [facility] Administration Atorvastatin Calcium 20 mg 03/30/18 22:00 03/30/18 21:46 Lipitor - NGT 20 mg HS [facility] Administration Chlorhexidine Gluconate 15 ml 03/30/18 12:30 03/31/18 09:27 Peridex - MM 15 ml BID [facility] Administration Glycerin 1 each 03/27/18 21:55 Glycerin Suppository Adult - RC DAILY PRN CONSTIPATION Heparin Sodium (Porcine) 5,000 unit 03/30/18 22:00 03/31/18 13:30 Heparin - SQ 5,000 unit TID [facility] Administration Propofol 1,000,000 mcg in 100 mls @ 3.742 mls/hr 03/29/18 15:45 03/31/18 10: 04 Diprivan - IVPB 25 mcg/kg/min TITR [facility] 18.711 mls/hr Administration Protocol 5 MCG/KG/MIN Fentanyl 500 mcg/ Dextrose 100 mls @ 1 mls/hr 03/29/18 20:30 03/30/18 08:20 IVPB 0 mcg/hr TITR [facility] 0 mls/hr Titration Protocol 5 MCG/HR Vancomycin HCl 1 gm in 200 mls @ 133.333 mls/hr 03/30/18 13:00 03/31/18 13:29 Vancomycin 1 Gm Premix - IVPB 133.333 mls/hr BID@0100,1300 [facility] Administration Piperacillin Sod/Tazobactam 100 mls @ 200 mls/hr 03/30/18 12:00 03/31/18 09: 29 Sod 4.5 gm/ Dextrose IVPB 200 mls/hr Q8H-IV [facility] Administration Protocol Insulin Aspart 1 vial 03/30/18 15:45 03/31/18 11:09 Novolog Vial Sliding Scale - SQ 6 units Q6HPO [facility] Administration Protocol Insulin Detemir 30 units 03/27/18 22:00 03/30/18 21:47 Levemir Vial SQ 30 units HS [facility] Administration Lisinopril 5 mg 03/29/18 12:45 03/31/18 09:27 Prinivil NGT 5 mg DAILY [facility] Administration Metoprolol Tartrate 25 mg 03/30/18 11:00 03/31/18 11:00 Lopressor - NGT 25 mg BID [facility] Administration Mupirocin 1 applic 03/30/18 12:30 03/31/18 09:58 Bactroban Ointment (For Decolonization) - NS 04/04/18 12:29 1 applic BID [facility] Administration Ondansetron HCl 4 mg 03/27/18 21:56 Zofran Injection IVPUSH Q6H PRN NAUSEA AND/OR VOMITING Pantoprazole Sodium 40 mg 03/28/18 10:30 03/31/18 09:29 Protonix Iv IVPUSH 40 mg DAILY [facility] Administration Tamsulosin HCl 0.4 mg 03/28/18 10:00 03/31/18 09:27 Flomax - PO 0.4 mg DAILY [facility] Administration ASSESSMENT/PLAN: Marco Land is a 62yo man with a PMH of CAD s/p CABG, HTN, HLD, IDDM, chronic back pain due to spinal stnosis with rapid neurological decline. He presented yesterday for a planned spinal surgery and suffered a cardac arrest in the OR. ROSC was achieved after 26 minutes of CPR, and he was transferred to the ICU. Cooling protocol and re-warming completed. He remains in critical condition in the ICU. Neuro: - Concern for hypoxic brain injury given length of code - Repeat head CT with acute/subacute L occipital infarct. - Off sedation as tolerated. Propofol as needed - Neuro following - Possible non-convulsive seizure activity - Given loading dose of 1g fosphenytoin. Will start 100mg TID after loading. CV: - s/p cardiac arrest. H/o CAD, CABG, HTN - Cardiology following - Cooling protocol completed - Echo completed, relatively normal, EF 55%, no right heart strain, no wall motion abnormalities - Elevated trops post-code, trended until decreasing. Peak 5.17. - Continue metoprolol, lisinopril 5mg daily, ASA 81 via NGT Pulm: - Mechanically ventilated - Current settings SIMV, 450cc, 35%, PEEP 5, rate 12. - Overbreathing vent - Weaning trials as tolerated - IS 10x per hour Heme: - Daily ASA. Continue to hold plavix per cards - Hgb downtrending, likely due to slight oozing into wound. - Transfuse as needed if hgb continues to decrease - Monitor daily CBC GI: - NGT in place - Tolerating tube feeds - Daily PPI while intubated and with NGT - LFTs downtrending Renal: - Jimenez in place, adequate UOP - MIAN resolved - Holding home flomax ID: - Leukocytosis continuing to downtrend, to 13.3 from high of 20.3. May be stress response to surgery, CPR, arrest but could also indicate infection or temperature disregulation secondary to arrest/hypoxia - Empiric vanc/zosyn - Febrile for past day - may be central fever - Dr Álvarez following - Monitor morning CBC Endo: - h/o IDDM - Continue ISS Q6hr - Sugars have been well controlled in high 100's - 200 Musc: - Paralytics D/C'd. Restraints in place per protocol - Monitoring back incision per nursing. No active bleeding overnight. - Dry dressing replaced as needed for drainage - Dressing to be replaced or reinforced as needed for oozing - Will contact Dr Rodriguez as needed if active bleeding is suspected PPx: - No pharmacologic DVT ppx postoperatively. SCDs in place. - PPI daily FEN: - TF (promote, goal 1750cc daily) - SLIV. 10cc free water flush per hour - Replete lytes PRN Dispo: - Critically ill patient requiring ongoing ICU-level care - Plan for family meeting on Tuesday04/03/18 at noon. Per chart, sister Marivel Land is the patient's preferred emergency contact. His other sister Carmen and denny Curtis have also both requested to be first call; however, there is no record of this in the patient's chart. Informed family that until a proxy is designated, all phone calls with updates will be made to Marivel. Seen and discussed with Dr Hsu. China Randle PGY1 Visit type - Emergency Visit Emergency Visit: No - New Patient This patient is new to me today: No - Critical Care Critical Care patient: Yes Total Critical Care Time (in minutes): 45 Critical Care Statement: The care of this patient involved high complexity decision making to prevent further life threatening deterioration of the patient 's condition and/or to evaluate & treat vital organ system(s) failure or risk of failure.
--- NOTE | 2018-03-31 14:31 | PN ---
Teaching Attending Note Name of Resident: China Randle ATTENDING PHYSICIAN STATEMENT I saw and evaluated the patient. I reviewed the resident's note and discussed the case with the resident. I agree with the resident's findings and plan as documented. SUBJECTIVE: Patient seen and examined in the ICU. Remains intubated, AC Mode of vent, 35% fiO2. Noted to have upward right lateral gaze. No overt seizure activity. (+) gag and over breathing the set rate. Fevers persists. OBJECTIVE: Intake & Output 03/28/18 03/29/18 03/30/18 03/31/18 23:59 23:59 23:59 23:59 Intake Total 3319.5 3302 3200 Output Total 1500 2350 900 1000 Balance 1819.5 952 2300 -1000 Weight 275 lb 286 lb 2.56 oz 286 lb 9.615 oz Last Vital Signs Temp Pulse Resp BP Pulse Ox 100.1 F H 63 22 H 105/65 100 03/31/18 12:00 03/31/18 13:00 03/31/18 13:00 03/31/18 13:00 03/31/18 07:44 Active Medications Artificial Tears (Artificial Tears) 1 drop OU BID PRN PRN Reason: DRY EYES Last Admin: 03/30/18 17:18 Dose: 1 drop Aspirin (Asa -) 81 mg PO DAILY [facility] Last Admin: 03/31/18 09:27 Dose: 81 mg Atorvastatin Calcium (Lipitor -) 20 mg NGT HS [facility] Last Admin: 03/30/18 21:46 Dose: 20 mg Chlorhexidine Gluconate (Peridex -) 15 ml MM BID [facility] Last Admin: 03/31/18 09:27 Dose: 15 ml Glycerin (Glycerin Suppository Adult -) 1 each RC DAILY PRN PRN Reason: CONSTIPATION Heparin Sodium (Porcine) (Heparin -) 5,000 unit SQ TID [facility] Last Admin: 03/31/18 13:30 Dose: 5,000 unit Propofol (Diprivan -) 1,000,000 mcg in 100 mls @ 3.742 mls/hr IVPB TITR [facility]; Protocol Last Admin: 03/31/18 10:04 Dose: 25 mcg/kg/min, 18.711 mls/hr Fentanyl 500 mcg/ Dextrose 100 mls @ 1 mls/hr IVPB TITR [facility]; Protocol Last Titration: 03/30/18 08:20 Dose: 0 mcg/hr, 0 mls/hr Vancomycin HCl (Vancomycin 1 Gm Premix -) 1 gm in 200 mls @ 133.333 mls/hr IVPB BID@0100,1300 [facility] Last Admin: 03/31/18 13:29 Dose: 133.333 mls/hr Piperacillin Sod/Tazobactam (Sod 4.5 gm/ Dextrose) 100 mls @ 200 mls/hr IVPB Q8H-IV [facility]; Protocol Last Admin: 03/31/18 09:29 Dose: 200 mls/hr Insulin Aspart (Novolog Vial Sliding Scale -) 1 vial SQ Q6HPO [facility]; Protocol Last Admin: 03/31/18 11:09 Dose: 6 units Insulin Detemir (Levemir Vial) 30 units SQ HS [facility] Last Admin: 03/30/18 21:47 Dose: 30 units Lisinopril (Prinivil) 5 mg NGT DAILY [facility] Last Admin: 03/31/18 09:27 Dose: 5 mg Metoprolol Tartrate (Lopressor -) 25 mg NGT BID [facility] Last Admin: 03/31/18 11:00 Dose: 25 mg Mupirocin (Bactroban Ointment (For Decolonization) -) 1 applic NS BID [facility] Stop: 04/04/18 12:29 Last Admin: 03/31/18 09:58 Dose: 1 applic Ondansetron HCl (Zofran Injection) 4 mg IVPUSH Q6H PRN PRN Reason: NAUSEA AND/OR VOMITING Pantoprazole Sodium (Protonix Iv) 40 mg IVPUSH DAILY [facility] Last Admin: 03/31/18 09:29 Dose: 40 mg Tamsulosin HCl (Flomax -) 0.4 mg PO DAILY [facility] Last Admin: 03/31/18 09:27 Dose: 0.4 mg Gen: intubated, poorly responsive Heart: RRR Lung: decreased breath sounds at the bases Abd: soft, nontender Ext: + edema ASSESSMENT AND PLAN: s/p PEA/VTach Cardiopulmonary Arrest Anoxic Encephalopathy / Brain Injury s/p Lumbar Laminectomy CAD s/p CABG +Troponins likely Demand Ischemia LV Systolic/Diastolic Dysfunction HTN DM Hypercholesterolemia CKD - completed hypothermia protocol - beta blockers - ABX per ID - f/u cultures - hold all sedation to assess mental status - enteral feeds - DVT/GI prophylaxis - Overall prognosis appears grave. Will need family meeting to discuss GOC - continue ICU monitoring Dr Hsu Critical care time spent in reviewing chart, evaluating patient and formulating plan 35 min
--- NOTE | 2018-03-31 14:43 | PN ---
Teaching Attending Note Name of Resident: Isabella Velazquez ATTENDING PHYSICIAN STATEMENT I saw and evaluated the patient. I reviewed the resident's note and discussed the case with the resident. I agree with the resident's findings and plan as documented. SUBJECTIVE:intubated/sedated RN witnessed myoclonic twitching of the face earlier today OBJECTIVE: Last Vital Signs Temp Pulse Resp BP Pulse Ox 100.1 F H 63 22 H 105/65 100 03/31/18 12:00 03/31/18 13:00 03/31/18 13:00 03/31/18 13:00 03/31/18 07:44 Intake & Output 03/28/18 03/29/18 03/30/18 03/31/18 23:59 23:59 23:59 23:59 Intake Total 3319.5 3302 3200 Output Total 1500 2350 900 1000 Balance 1819.5 952 2300 -1000 Weight 275 lb 286 lb 2.56 oz 286 lb 9.615 oz General sedated/intubated, non purposeful movements CV S1 S2 + Lungs coarse breath sounds anteriorly. Abdomen soft NT/ND obese Extremities no edema Neuro sluggish pupil response. does not withdraw to pain. negative dolls eyes ASSESSMENT AND PLAN: 62yo M with PMH Severe stenosis L2-L3 and L3-L4, HTN, DM and CAD S/p CABG presented for scheduled laminectomy however case was aborted due to de- saturation during the procedure and patient was flipped from prone position and noted to loose pulse and was PEA on the monitor. Code 99 was called and CPR initiated. received 1 shock and started on amio. ROSC achieved after approx 25mins. pt was started on hypothermia protocol and goal temp was achieved at 0800 this morning. 1. s/p cardiac arrest- s/p hypothermia protocol and re-warmed. cont lopressor/ acei/asa/statin. cardio on board 2. acute toxic/metabolic encephalopathy-concern for anoxic injury given prolonged CPR. +twitching. patient may be in status epilepticus. loaded with fosphenytoin and EEG done this AM. will repeat Head CT today. sedation vacation to assess mental status. neuro on board 3. Acute hypoxic respiratory failure-noted prior to cardiac arrest. s/p intubated. on SIMV mode and able to initiate own breaths. vent management per ICU team 4. Fever- Tm 102.4 with leukocytosis. back examined by RN says there is serosangenous drainage but no erythema. Cx obtained. on vanco/zosyn day 2. ID consult. f/u cx 5. HTN-improved. titrate medications as needed 6. DM-BGM and iSS 7. DVT ppx- hep sq 8. MICU monitoring/. poor prognosis. will need family meeting to determine goals of care The care of this patient involved high complexity decision making to prevent further life threatening deterioration of the patient's condition and/or to evaluate & treat vital organ system(s) failure or risk of failure. 40 mins
[2018-03-31] MEDS ORDERED: FOSPHENYTOIN SODIUM 1,500 MG in SODIUM CHLORIDE 100 ML IVPB ONE (15:23)
[2018-03-31] MEDS ORDERED: POTASSIUM CHLORIDE 20 MEQ PREMIX IVPB 100 ML IVPB ONE (15:39)
--- NOTE | 2018-03-31 16:23 | PN ---
Physical Exam: SUBJECTIVE: Patient seen and examined at bedside this morning. Patient is sedated and intubated. OBJECTIVE: Vital Signs Period Temp Pulse Resp BP Sys/Martinez Pulse Ox Last 24 Hr 100.1 F-102.4 F 63-87 14-28 105-148/49-70 97-100 GENERAL: The patient is intubated. minimally sedated. Eyes open with upward gaze. LUNGS: Coarse breath sounds. HEART: Regular rate and rhythm, S1, S2 without murmur, rub or gallop. ABDOMEN: Soft,obese, nondistended. EXTREMITIES: 2+ pulses, warm, well-perfused, no edema. Laboratory Results - last 24 hr 03/30/18 03/30/18 03/30/18 14:40 17:16 21:22 WBC RBC Hgb Hct MCV MCH MCHC RDW Plt Count MPV Absolute Neuts (auto) Neutrophils % Lymphocytes % Monocytes % Eosinophils % Basophils % Nucleated RBC % Sodium Potassium Chloride Carbon Dioxide Anion Gap BUN Creatinine Creat Clearance w eGFR POC Glucometer 189.66372 198.16637 181.95628 Random Glucose Calcium Phosphorus Magnesium Total Bilirubin AST ALT Alkaline Phosphatase Total Protein Albumin Phenytoin 03/31/18 03/31/18 03/31/18 05:30 05:30 05:47 WBC 13.3 H RBC 3.09 L Hgb 9.0 L Hct 26.9 L MCV 86.9 MCH 29.2 MCHC 33.6 RDW 16.4 H Plt Count 171 MPV 8.5 Absolute Neuts (auto) 11.4 H Neutrophils % 85.4 H Lymphocytes % 7.3 L Monocytes % 6.9 Eosinophils % 0.3 Basophils % 0.1 Nucleated RBC % 0 Sodium 140 Potassium 3.5 Chloride 110 H Carbon Dioxide 22 Anion Gap 8 BUN 24 H Creatinine 0.9 Creat Clearance w eGFR > 60 POC Glucometer [phone] Random Glucose 219 H Calcium 8.0 L Phosphorus 2.0 L Magnesium 2.4 Total Bilirubin 0.8 AST 27 ALT 38 Alkaline Phosphatase 116 Total Protein 4.8 L Albumin 1.9 L Phenytoin 03/31/18 13:40 WBC RBC Hgb Hct MCV MCH MCHC RDW Plt Count MPV Absolute Neuts (auto) Neutrophils % Lymphocytes % Monocytes % Eosinophils % Basophils % Nucleated RBC % Sodium Potassium Chloride Carbon Dioxide Anion Gap BUN Creatinine Creat Clearance w eGFR POC Glucometer Random Glucose Calcium Phosphorus Magnesium Total Bilirubin AST ALT Alkaline Phosphatase Total Protein Albumin Phenytoin 5.8 L Active Medications Generic Name Dose Route Start Last Admin Trade Name Freq PRN Reason Stop Dose Admin Artificial Tears 1 drop 03/28/18 07:59 03/30/18 17:18 Artificial Tears OU 1 drop BID PRN Administration DRY EYES Aspirin 81 mg 03/30/18 10:00 03/31/18 09:27 Asa - PO 81 mg DAILY [facility] Administration Atorvastatin Calcium 20 mg 03/30/18 22:00 03/30/18 21:46 Lipitor - NGT 20 mg HS [facility] Administration Chlorhexidine Gluconate 15 ml 03/30/18 12:30 03/31/18 09:27 Peridex - MM 15 ml BID [facility] Administration Glycerin 1 each 03/27/18 21:55 Glycerin Suppository Adult - RC DAILY PRN CONSTIPATION Heparin Sodium (Porcine) 5,000 unit 03/30/18 22:00 03/31/18 13:30 Heparin - SQ 5,000 unit TID [facility] Administration Propofol 1,000,000 mcg in 100 mls @ 3.742 mls/hr 03/29/18 15:45 03/31/18 16: 11 Diprivan - IVPB 25 mcg/kg/min TITR [facility] 18.711 mls/hr Administration Protocol 5 MCG/KG/MIN Fentanyl 500 mcg/ Dextrose 100 mls @ 1 mls/hr 03/29/18 20:30 03/30/18 08:20 IVPB 0 mcg/hr TITR [facility] 0 mls/hr Titration Protocol 5 MCG/HR Vancomycin HCl 1 gm in 200 mls @ 133.333 mls/hr 03/30/18 13:00 03/31/18 13:29 Vancomycin 1 Gm Premix - IVPB 133.333 mls/hr BID@0100,1300 [facility] Administration Piperacillin Sod/Tazobactam 100 mls @ 200 mls/hr 03/30/18 12:00 03/31/18 09: 29 Sod 4.5 gm/ Dextrose IVPB 200 mls/hr Q8H-IV [facility] Administration Protocol Potassium Chloride 100 mls @ 100 mls/hr 03/31/18 16:00 Potassium Chloride 20 Meq Premix Ivpb - IVPB 03/31/18 17:59 Q1H [facility] Insulin Aspart 1 vial 03/30/18 15:45 03/31/18 11:09 Novolog Vial Sliding Scale - SQ 6 units Q6HPO [facility] Administration Protocol Insulin Detemir 30 units 03/27/18 22:00 03/30/18 21:47 Levemir Vial SQ 30 units HS [facility] Administration Lisinopril 5 mg 03/29/18 12:45 03/31/18 09:27 Prinivil NGT 5 mg DAILY [facility] Administration Metoprolol Tartrate 25 mg 03/30/18 11:00 03/31/18 11:00 Lopressor - NGT 25 mg BID [facility] Administration Mupirocin 1 applic 03/30/18 12:30 03/31/18 09:58 Bactroban Ointment (For Decolonization) - NS 04/04/18 12:29 1 applic BID [facility] Administration Ondansetron HCl 4 mg 03/27/18 21:56 Zofran Injection IVPUSH Q6H PRN NAUSEA AND/OR VOMITING Pantoprazole Sodium 40 mg 03/28/18 10:30 03/31/18 09:29 Protonix Iv IVPUSH 40 mg DAILY [facility] Administration Tamsulosin HCl 0.4 mg 03/28/18 10:00 03/31/18 09:27 Flomax - PO 0.4 mg DAILY [facility] Administration Imaging Echo - LV systolic function is grossly normal. EF = 55%. Regional wall motion abnormalities cannot be excluded due to limited visualization. There is trace mitral regurgitation. There is trace tricuspid regurgitation. There is mild pulmonary hypertension. Head CT w/o contrast (03/31/18) - Evolving left posterior cerebral artery territory acute/subacute infarct. Otherwise, no gross mass lesion or intracranial hemorrhage are identified. There is no shift of the midline structures or evidence of inferior herniation. Poor visualization of the ye- white matter junction. There is also paucity of the cortical sulci the patient' s age. Cannot rule out the brain swelling/edema. The basal cisterns are not effaced. Head CT w/o contrast (03/29/18) - Slightly limited examination, as described above in particular evaluation of the inferior aspect of the posterior fossa. There is suggestion of faint low-attenuation density in the left occipital lobe , medially. An acute infarct cannot be excluded. No gross intracranial hemorrhage is seen. CXR (03/31/18) - Since 03/31/18 at 0506 hours, the endotracheal tube, right jugular line and mediastinal clips and sutures persist. Tubing projects over the chest. There is a large heart, unfolded aorta and prominent central markings. CXR (03/31/18) - Since the prior study of 03/30/18 at 1030 hours, there is slight increase in lung markings at the bases. The endotracheal tube, nasogastric tube and right jugular line persist. CXR (03/27/18) - Since the earlier study of 03/16/2018, the endotracheal tube has been inserted and the tip is well above the leroy. Right jugular line is been inserted and the tip is in the SVC's junction with the right atrium. There are sternal sutures with weak inspiration, increased central markings and prominent mediastinum. There may be some fluid at the right base. There is no sign of a pneumothorax. Microbiology 03/30/18 11:00 Back Gram Stain - Final 03/30/18 11:00 Back Wound Culture - Preliminary NO GROWTH OBTAINED AFTER 24 HOURS INCUBATION, REINCUBATED. 03/29/18 17:30 Urine - Urine Jimenez Urine Culture - Final NO GROWTH OBTAINED 03/29/18 17:30 Blood - Central Line Blood Culture - Preliminary NO GROWTH OBTAINED AFTER 24 HOURS, INCUBATION TO CONTINUE FOR 4 DAYS. 03/29/18 17:30 Blood - Central Line Blood Culture - Preliminary NO GROWTH OBTAINED AFTER 24 HOURS, INCUBATION TO CONTINUE FOR 4 DAYS. ASSESSMENT/PLAN: Patient is a 62 year old male with past medical history of chronic low back pain , CAD s/p CABG on plavix (held prior to surgery), HTN, HLD, DM, and BPH presented as outpatient for planned L1-S1 laminectomy and T12-S1 posterior instrumented spinal fusion. During the surgery, patient became pulseless, ACLS protocol initiated, and ROSC achieved. #ROSC s/p cardiopulmonary arrest -Hypothermia protocol finished. -Cardiology (Dr. Bush) consulted. Recommendations appreciated. -IV Metoprolol switch to PO Lopressor BID via NGT. -Lisinopril 5mg daily and ASA 81mg started through NGT -hold off on Plavix resumption -Statins unless contraindicated. -Echocardiography - EF 55%, no right heart strain, no wall motion abnormalities -Mechanically ventilated. Weaning trials as tolerated. #Anoxic brain injury -Neurology consulted. Recommendations appreciated. -Minimal propofol. Off sedation as tolerated -Vecuronium drip and fentanyl drip discontinued. -RN reported eyes fluttering last night. -as per neuro, possible non-convulsive seizure activity. -Given loading dose of 1g fosphenytoin. Will start 100mg TID after loading. -Repeat head CT - evolving Left TRAVEL NURSE territory acute/subacute infarct. No gross mass lesion or ICH. No shift of midline structures or evidence of inferior herniation. Poor visualization of ye-white matter junction. There is paucity of cortical sulci. Cannot r/o brain swelling/edema. Basal cisterns are not effaced. euro: #Troponinemia -Troponin peaked at 5.17 and started to trend down to 3.12 -EKG done - no acute changes #Spinal Wound -Mid back incision with skin sutures but layered closure not completed due to cardiac arrest -Minimal bleeding into wound. -Monitor wound and daily CBC. #Leukocytosis: resolving -Likely reactive -Continues to trend down. 13.3 today. -ID consulted. Recommendations appreciated. -Empiric Vancomycin and Zosyn day 2 -will continue to monitor #CAD s/p CABG -Continue ASA -hold home medication Plavix -will monitor #Hypertension -Metoprolol resumed. -Will monitor BP #DM -Discontinued insulin drip -Sliding scale implemented q4h -BGM q4h #MIAN: resolved -likely 2/2 pre-renal from poor perfusion during the arrest -Jimenez catheter placed -urine lytes ordered. -will monitor renal function #FEN -IV NS @ 125 ml/hr -Tube feeding (high protein, low kcal) -Routine bmp monitoring, will replete lytes as needed. #Prophylaxis -TEDs, SCDs #Disposition -ICU for close monitoring -Plan for family meeting at 04/03/18. Visit type - Emergency Visit Emergency Visit: Yes ED Registration Date: 03/27/18 Care time: The patient presented to the Emergency Department on the above date and was hospitalized for further evaluation of their emergent condition. - New Patient This patient is new to me today: Yes Date on this admission: 04/01/18 - Critical Care Critical Care patient: Yes Total Critical Care Time (in minutes): 40 Critical Care Statement: The care of this patient involved high complexity decision making to prevent further life threatening deterioration of the patient 's condition and/or to evaluate & treat vital organ system(s) failure or risk of failure.
[2018-03-31] MEDS: FENTANYL INJECTION 500 MCG in DEXTROSE 5%-WATER - 90 ML IVPB SCH (16:41)
[2018-03-31] MEDS ORDERED: FENTANYL INJECTION 500 MCG in DEXTROSE 5%-WATER - 90 ML IVPB SCH (16:45)
[2018-03-31] MEDS: KCL 20 MEQ PREMIX BAG 100 ML IVPB SCH ×2 (18:19→19:45)
[2018-03-31] MEDS: ATORVASTATIN CA 20 MG TABLET (FP) NGT SCH (21:40)
[2018-03-31] MEDS: INSULIN (LEVEMIR) 100 UNITS/ML UNITS SQ SCH (21:46)
[2018-03-31] MEDS ORDERED: ACETAMINOPHEN 650 MG/20.3 ML ORAL SOLUTION (CUPS) PO ONE (22:48)
[2018-03-31] MEDS ORDERED: fentaNYL CITRATE 250 MCG/5 ML VIAL ONE (23:46)
[2018-04-01] MEDS: VANCOMYCIN 1 GM PREMIX - 1 GM/200 ML BAG IVPB SCH ×2 (00:06→16:50)
[2018-04-01] MEDS: PROPOFOL 1,000,000 MCG/100 ML VIAL IVPB SCH (00:08)
[2018-04-01] MEDS: FENTANYL INJECTION 500 MCG in DEXTROSE 5%-WATER - 90 ML IVPB SCH (00:09)
[2018-04-01] MEDS ORDERED: PIPERACILLIN/TAZOBACTAM 4.5 GM VIAL IVPB ONE ×3 (01:18→14:06)
[2018-04-01] MEDS ORDERED: DEXTROSE 5%-WATER 100 ML IVPB ONE ×3 (01:19→14:06)
[2018-04-01] MEDS: PIPERACILLIN/TAZOB 4.5 GM 4.5 GM in DEXTROSE 5%-WATER 100 ML IVPB SCH ×3 (01:23→17:01)
[2018-04-01 06:19] LABS: HEMATOCRIT 26.5 % (35.4-49); HEMOGLOBIN 8.8 GM/dL (11.7-16.9); MCH 28.9 pg (25.7-33.7); MCHC 33.1 g/dl (32.0-35.9); MEAN CELL VOLUME 87.2 fl (80-96); MEAN PLT VOLUME 8.4 fl (7.5-11.1); PLATELET COUNT 160 K/MM3 (134-434); RBC 3.03 M/mm3 (4.00-5.60); RDW 16.9 % (11.9-15.9); WHITE BLOOD COUNT 9.9 K/mm3 (4.0-10.0)
[2018-04-01] MEDS: INSULIN SLIDING SCALE (NOVOLOG) 1 VIAL SQ SCH ×4 (06:50→23:13)
[2018-04-01] MEDS: HEPARIN NA (PORCINE) 5,000 UNITS/ML 1ML VIAL SQ SCH ×3 (06:50→21:22)
[2018-04-01 07:06] LABS: ALBUMIN 1.9 g/dl (3.4-5.0); ALK PHOS 163 U/L (45-117); ANION GAP 6 MMOL/L (8-16); BILIRUBIN,TOTAL 0.6 mg/dL (0.2-1); BLOOD UREA NITROGEN 23 mg/dL (7-18); CALCIUM 7.5 mg/dL (8.5-10.1); CHLORIDE 110 mmol/L (98-107); CO2 24 mmol/L (21-32); CREATININE 0.9 mg/dL (0.55-1.3); GLUCOSE,RANDOM 259 mg/dL (74-106); MAGNESIUM 2.5 mg/dL (1.8-2.4); PHOSPHOROUS 2.8 mg/dL (2.5-4.9); POTASSIUM 4.1 mmol/L (3.5-5.1); SGOT/AST 38 U/L (15-37); SGPT/ALT 38 U/L (13-61); SODIUM 141 mmol/L (136-145); TOT PROT 4.9 g/dl (6.4-8.2)
--- NOTE | 2018-04-01 07:33 | PN ---
Progress Note (short form) - Note Progress Note: Chief Complaint: Events noted, notes reviewed , remains intubated, sedated and unresponsive, according to nursing staff gag reflux-noted, tachypnea-noted and questionable left upper extremity movement History of Present Illness: Seen and examined in [facility] ICU. Events noted, notes reviewed , remains intubated , sedated and unresponsive, according to nursing staff gag reflux-noted, tachypnea-noted and questionable left upper extremity movement Remains febrile Echocardiography dated 03/28/2018 revealed normal LV systolic function, with LVEF 0f 55%, walll motion cannot be assessed (upon study review there is abnormal septal motion consistent with prior open heart surgery), normal RV size and function and no significant valvular pathology CT scan of the head dated 03/29/2018 results noted Medications: Current Medications Artificial Tears (Artificial Tears) 1 drop OU BID PRN PRN Reason: DRY EYES Last Admin: 03/30/18 17:18 Dose: 1 drop Aspirin (Asa -) 81 mg PO DAILY [facility] Last Admin: 03/31/18 09:27 Dose: 81 mg Atorvastatin Calcium (Lipitor -) 20 mg NGT HS [facility] Last Admin: 03/31/18 21:40 Dose: 20 mg Chlorhexidine Gluconate (Peridex -) 15 ml MM BID [facility] Last Admin: 03/31/18 21:40 Dose: 15 ml Glycerin (Glycerin Suppository Adult -) 1 each RC DAILY PRN PRN Reason: CONSTIPATION Heparin Sodium (Porcine) (Heparin -) 5,000 unit SQ TID [facility] Last Admin: 04/01/18 06:50 Dose: 5,000 unit Propofol (Diprivan -) 1,000,000 mcg in 100 mls @ 3.742 mls/hr IVPB TITR [facility]; Protocol Last Admin: 04/01/18 00:08 Dose: 15 mcg/kg/min, 11.226 mls/hr Vancomycin HCl (Vancomycin 1 Gm Premix -) 1 gm in 200 mls @ 133.333 mls/hr IVPB BID@0100,1300 [facility] Last Admin: 04/01/18 00:06 Dose: 133.333 mls/hr Piperacillin Sod/Tazobactam (Sod 4.5 gm/ Dextrose) 100 mls @ 200 mls/hr IVPB Q8H-IV [facility]; Protocol Last Admin: 10/06/18 01:23 Dose: 200 mls/hr Fentanyl 500 mcg/ Dextrose 100 mls @ 5 mls/hr IVPB TITR [facility] Last Admin: 04/01/18 00:09 Dose: 25 mcg/hr, 5 mls/hr Insulin Aspart (Novolog Vial Sliding Scale -) 1 vial SQ Q6HPO [facility]; Protocol Last Admin: 04/01/18 06:50 Dose: 6 units Insulin Detemir (Levemir Vial) 30 units SQ HS [facility] Last Admin: 03/31/18 21:46 Dose: 30 units Lisinopril (Prinivil) 5 mg NGT DAILY [facility] Last Admin: 03/31/18 09:27 Dose: 5 mg Metoprolol Tartrate (Lopressor -) 25 mg NGT BID [facility] Last Admin: 03/31/18 21:40 Dose: 25 mg Mupirocin (Bactroban Ointment (For Decolonization) -) 1 applic NS BID [facility] Stop: 04/04/18 12:29 Last Admin: 03/31/18 21:39 Dose: 1 applic Ondansetron HCl (Zofran Injection) 4 mg IVPUSH Q6H PRN PRN Reason: NAUSEA AND/OR VOMITING Pantoprazole Sodium (Protonix Iv) 40 mg IVPUSH DAILY [facility] Last Admin: 03/31/18 09:29 Dose: 40 mg Tamsulosin HCl (Flomax -) 0.4 mg PO DAILY [facility] Last Admin: 03/31/18 09:27 Dose: 0.4 mg Review of Systems Unable to obtain Vital Signs: Last Vital Signs Temp Pulse Resp BP Pulse Ox 100.7 F H 63 22 H 98/55 L 100 03/31/18 22:00 04/01/18 01:00 04/01/18 06:51 04/01/18 01:00 03/31/18 21:00 Intake & Output 03/29/18 03/30/18 03/31/18 04/01/18 23:59 23:59 23:59 23:59 Intake Total 3302 3200 4508 Output Total 2350 900 2500 Balance 952 2300 2007 Weight 275 lb 286 lb 2.56 oz 286 lb 9.615 oz Neck: Supple Negative JVD Respiratory: Bilateral Scattered Rhonchi Cardiovascular: S1 S2 Regular Rate and Rhythm Grade 1-2/6 ARMANI Gastrointestinal: Soft Benign Normal Bowel Sounds Ext: Trace Edema Chronic Venous Stasis Changes Labs: CBC, BMP 04/01/18 05:30 04/01/18 05:30 Hepatic Panel Total Bilirubin 0.6 mg/dL (0.2-1) 04/01/18 05:30 AST 38 U/L (15-37) H 04/01/18 05:30 ALT 38 U/L (13-61) 04/01/18 05:30 Alkaline Phosphatase 163 U/L (45-117) H 04/01/18 05:30 Albumin 1.9 g/dl (3.4-5.0) L 04/01/18 05:30 Assessment/Plan ASSESSMENT: 1. Post cardiopulmonary arrest/pulse-less electrical activity, ventricular tachycardia post resuscitation currently intubated/sedated unresponsive 2. Post operative day #5 post lumber laminectomy/L1-S1 laminectomy and T12-S1 posterior instrumentation 3. Anoxic brain injury to be considered in view of above clinical presentation, evidence of acute/subacute CVA 4. CAD post CABG angina pectoris with evidence of demand ischemia 5. LV diastolic dysfunction with class 0 NYHA classification LV failure 6. History of HTN 7. History of DM 8. History of hypercholesterolemia 9. Chronic kidney disease PLAN: 1. Remains off of Amiodarone since LV function is normal and primary event was not ventricular tachycardia 2. Continue Lopressor hemodynamics permitting 3. Continue Lisinopril hemodynamics permitting 4. Continue ASA and defer Plavix resumption specially if additional intervention is planned 5. Continue Lipitor 6. Neurology followup 7. Antibiotics as per ID service Condition ольгаed Hazel Bush M.D.
--- NOTE | 2018-04-01 07:37 | PN ---
Progress Note (short form) - Note Progress Note: intubated/sedated Current Medications Generic Name Dose Route Start Last Admin Trade Name Freq PRN Reason Stop Dose Admin Artificial Tears 1 drop 03/28/18 07:59 03/30/18 17:18 Artificial Tears OU 1 drop BID PRN Administration DRY EYES Aspirin 81 mg 03/30/18 10:00 03/31/18 09:27 Asa - PO 81 mg DAILY SYLVIA Administration Atorvastatin Calcium 20 mg 03/30/18 22:00 03/31/18 21:40 Lipitor - NGT 20 mg HS SYLVIA Administration Chlorhexidine Gluconate 15 ml 03/30/18 12:30 03/31/18 21:40 Peridex - MM 15 ml BID SYLVIA Administration Glycerin 1 each 03/27/18 21:55 Glycerin Suppository Adult - RC DAILY PRN CONSTIPATION Heparin Sodium (Porcine) 5,000 unit 03/30/18 22:00 04/01/18 06:50 Heparin - SQ 5,000 unit TID SYLVIA Administration Propofol 1,000,000 mcg in 100 mls @ 3.742 mls/hr 03/29/18 15:45 04/01/18 00: 08 Diprivan - IVPB 15 mcg/kg/min TITR SYLVIA 11.226 mls/hr Administration Protocol 5 MCG/KG/MIN Vancomycin HCl 1 gm in 200 mls @ 133.333 mls/hr 03/30/18 13:00 04/01/18 00:06 Vancomycin 1 Gm Premix - IVPB 133.333 mls/hr BID@0100,1300 SYLVIA Administration Piperacillin Sod/Tazobactam 100 mls @ 200 mls/hr 03/30/18 12:00 04/01/18 01: 23 Sod 4.5 gm/ Dextrose IVPB 200 mls/hr Q8H-IV SYLVIA Administration Protocol Fentanyl 500 mcg/ Dextrose 100 mls @ 5 mls/hr 03/31/18 17:28 04/01/18 00:09 IVPB 25 mcg/hr TITR SYLVIA 5 mls/hr Administration 25 MCG/HR Insulin Aspart 1 vial 03/30/18 15:45 04/01/18 06:50 Novolog Vial Sliding Scale - SQ 6 units Q6HPO SYLVIA Administration Protocol Insulin Detemir 30 units 03/27/18 22:00 03/31/18 21:46 Levemir Vial SQ 30 units HS SYLVIA Administration Lisinopril 5 mg 03/29/18 12:45 03/31/18 09:27 Prinivil NGT 5 mg DAILY SYLVIA Administration Metoprolol Tartrate 25 mg 03/30/18 11:00 03/31/18 21:40 Lopressor - NGT 25 mg BID SYLVIA Administration Mupirocin 1 applic 03/30/18 12:30 03/31/18 21:39 Bactroban Ointment (For Decolonization) - NS 04/04/18 12:29 1 applic BID SYLVIA Administration Ondansetron HCl 4 mg 03/27/18 21:56 Zofran Injection IVPUSH Q6H PRN NAUSEA AND/OR VOMITING Pantoprazole Sodium 40 mg 03/28/18 10:30 03/31/18 09:29 Protonix Iv IVPUSH 40 mg DAILY SYLVIA Administration Tamsulosin HCl 0.4 mg 03/28/18 10:00 03/31/18 09:27 Flomax - PO 0.4 mg DAILY SYLVIA Administration Last Vital Signs Temp Pulse Resp BP Pulse Ox 100.5 F H 63 22 H 122/58 L 100 04/01/18 04:00 04/01/18 04:00 04/01/18 06:51 04/01/18 04:00 03/31/18 21:00 Intake & Output 03/29/18 03/30/18 03/31/18 04/01/18 23:59 23:59 23:59 23:59 Intake Total 3302 3200 4508 Output Total 2350 900 2500 Balance 952 2300 2007 Weight 275 lb 286 lb 2.56 oz 286 lb 9.615 oz 278 lb 14.156 oz General sedated/intubated, non purposeful movements, twitching of the R eye noted CV S1 S2 + Lungs coarse breath sounds anteriorly. Abdomen soft NT/ND obese Extremities no edema Neuro sluggish pupil response. does not withdraw to pain. negative dolls eyes CBCD WBC 9.9 K/mm3 (4.0-10.0) 04/01/18 05:30 RBC 3.03 M/mm3 (4.00-5.60) L 04/01/18 05:30 Hgb 8.8 GM/dL (11.7-16.9) L 04/01/18 05:30 Hct 26.5 % (35.4-49) L 04/01/18 05:30 MCV 87.2 fl (80-96) 04/01/18 05:30 MCHC 33.1 g/dl (32.0-35.9) 04/01/18 05:30 RDW 16.9 % (11.9-15.9) H 04/01/18 05:30 Plt Count 160 K/MM3 (134-434) 04/01/18 05:30 MPV 8.4 fl (7.5-11.1) 04/01/18 05:30 CMP Sodium 141 mmol/L (136-145) 04/01/18 05:30 Potassium 4.1 mmol/L (3.5-5.1) 04/01/18 05:30 Chloride 110 mmol/L (98-107) H 04/01/18 05:30 Carbon Dioxide 24 mmol/L (21-32) 04/01/18 05:30 Anion Gap 6 MMOL/L (8-16) L 04/01/18 05:30 BUN 23 mg/dL (7-18) H 04/01/18 05:30 Creatinine 0.9 mg/dL (0.55-1.3) 04/01/18 05:30 Creat Clearance w eGFR > 60 (>60) 04/01/18 05:30 Calcium 7.5 mg/dL (8.5-10.1) L 04/01/18 05:30 Total Bilirubin 0.6 mg/dL (0.2-1) 04/01/18 05:30 AST 38 U/L (15-37) H 04/01/18 05:30 ALT 38 U/L (13-61) 04/01/18 05:30 Alkaline Phosphatase 163 U/L (45-117) H 04/01/18 05:30 Total Protein 4.9 g/dl (6.4-8.2) L 04/01/18 05:30 Albumin 1.9 g/dl (3.4-5.0) L 04/01/18 05:30 Microbiology 03/30/18 11:00 Back Gram Stain - Final 03/30/18 11:00 Back Wound Culture - Preliminary No growth. 03/29/18 17:30 Blood - Central Line Blood Culture - Preliminary NO GROWTH OBTAINED AFTER 48 HOURS, INCUBATION TO CONTINUE FOR 3 DAYS. 03/29/18 17:30 Blood - Central Line Blood Culture - Preliminary NO GROWTH OBTAINED AFTER 48 HOURS, INCUBATION TO CONTINUE FOR 3 DAYS. 03/29/18 17:30 Urine - Urine Jimenez Urine Culture - Final NO GROWTH OBTAINED ASSESSMENT AND PLAN: 62yo M with PMH Severe stenosis L2-L3 and L3-L4, HTN, DM and CAD S/p CABG presented for scheduled laminectomy however case was aborted due to de- saturation during the procedure and patient was flipped from prone position and noted to loose pulse and was PEA on the monitor. Code 99 was called and CPR initiated. received 1 shock and started on amio. ROSC achieved after approx 25mins. pt was started on hypothermia protocol and goal temp was achieved at 0800 this morning. 1. s/p cardiac arrest- s/p hypothermia protocol and re-warmed. cont lopressor/ acei/asa/statin. cardio on board 2. acute toxic/metabolic encephalopathy-concern for anoxic injury given prolonged CPR. +twitching. patient may be in status epilepticus. loaded with fosphenytoin and EEG done this AM. repeat Head CT showing acute/subacute L post cerebellar infarct. blurring of the ye/white matter. becomes agitated off sedation with tachycardia and tachypnea. neuro on board 3. Acute hypoxic respiratory failure-noted prior to cardiac arrest. s/p intubated. on SIMV mode and able to initiate own breaths. vent management per ICU team 4. Fever- Tm 100.9, leukcoytosis resolved. on vanco/zosyn day 3. all Cx NGTD. ID on baord. 5. HTN-improved. titrate medications as needed 6. DM-BGM and iSS 7. DVT ppx- hep sq 8. MICU monitoring/. poor prognosis. will need family meeting to determine goals of care The care of this patient involved high complexity decision making to prevent further life threatening deterioration of the patient's condition and/or to evaluate & treat vital organ system(s) failure or risk of failure. 35 mins Visit type - Emergency Visit Emergency Visit: Yes ED Registration Date: 03/27/18 Care time: The patient presented to the Emergency Department on the above date and was hospitalized for further evaluation of their emergent condition. - New Patient This patient is new to me today: No - Critical Care Critical Care patient: Yes Total Critical Care Time (in minutes): 35 Critical Care Statement: The care of this patient involved high complexity decision making to prevent further life threatening deterioration of the patient 's condition and/or to evaluate & treat vital organ system(s) failure or risk of failure. - Discharge Referral Referred to [facility] No
--- NOTE | 2018-04-01 09:38 | PN ---
Progress Note (short form) - Note Progress Note: ID f/u remains intubated no purposeful movement Vital Signs Period Temp Pulse Resp BP Sys/Martinez Pulse Ox Last 24 Hr 100.1 F-100.9 F 59-81 20-34 94-138/47-72 97-100 cor-rrr lungs decreased bs at bases abd soft,nt ext no edema CBC, BMP 04/01/18 05:30 04/01/18 05:30 Microbiology 03/30/18 11:00 Back Gram Stain - Final 03/30/18 11:00 Back Wound Culture - Preliminary No growth. 03/29/18 17:30 Blood - Central Line Blood Culture - Preliminary NO GROWTH OBTAINED AFTER 48 HOURS, INCUBATION TO CONTINUE FOR 3 DAYS. 03/29/18 17:30 Blood - Central Line Blood Culture - Preliminary NO GROWTH OBTAINED AFTER 48 HOURS, INCUBATION TO CONTINUE FOR 3 DAYS. 03/29/18 17:30 Urine - Urine Jimenez Urine Culture - Final NO GROWTH OBTAINED Current Medications Artificial Tears (Artificial Tears) 1 drop OU BID PRN PRN Reason: DRY EYES Last Admin: 03/30/18 17:18 Dose: 1 drop Aspirin (Asa -) 81 mg PO DAILY [facility] Last Admin: 03/31/18 09:27 Dose: 81 mg Atorvastatin Calcium (Lipitor -) 20 mg NGT HS [facility] Last Admin: 03/31/18 21:40 Dose: 20 mg Chlorhexidine Gluconate (Peridex -) 15 ml MM BID [facility] Last Admin: 03/31/18 21:40 Dose: 15 ml Glycerin (Glycerin Suppository Adult -) 1 each RC DAILY PRN PRN Reason: CONSTIPATION Heparin Sodium (Porcine) (Heparin -) 5,000 unit SQ TID [facility] Last Admin: 04/01/18 06:50 Dose: 5,000 unit Propofol (Diprivan -) 1,000,000 mcg in 100 mls @ 3.742 mls/hr IVPB TITR [facility]; Protocol Last Admin: 04/01/18 00:08 Dose: 15 mcg/kg/min, 11.226 mls/hr Vancomycin HCl (Vancomycin 1 Gm Premix -) 1 gm in 200 mls @ 133.333 mls/hr IVPB BID@0100,1300 [facility] Last Admin: 04/01/18 00:06 Dose: 133.333 mls/hr Piperacillin Sod/Tazobactam (Sod 4.5 gm/ Dextrose) 100 mls @ 200 mls/hr IVPB Q8H-IV [facility]; Protocol Last Admin: 04/01/18 01:23 Dose: 200 mls/hr Fentanyl 500 mcg/ Dextrose 100 mls @ 5 mls/hr IVPB TITR [facility] Last Admin: 04/01/18 00:09 Dose: 25 mcg/hr, 5 mls/hr Insulin Aspart (Novolog Vial Sliding Scale -) 1 vial SQ Q6HPO [facility]; Protocol Last Admin: 04/01/18 06:50 Dose: 6 units Insulin Detemir (Levemir Vial) 30 units SQ HS [facility] Last Admin: 03/31/18 21:46 Dose: 30 units Lisinopril (Prinivil) 5 mg NGT DAILY [facility] Last Admin: 03/31/18 09:27 Dose: 5 mg Metoprolol Tartrate (Lopressor -) 25 mg NGT BID [facility] Last Admin: 03/31/18 21:40 Dose: 25 mg Mupirocin (Bactroban Ointment (For Decolonization) -) 1 applic NS BID [facility] Stop: 04/04/18 12:29 Last Admin: 03/31/18 21:39 Dose: 1 applic Ondansetron HCl (Zofran Injection) 4 mg IVPUSH Q6H PRN PRN Reason: NAUSEA AND/OR VOMITING Pantoprazole Sodium (Protonix Iv) 40 mg IVPUSH DAILY [facility] Last Admin: 03/31/18 09:29 Dose: 40 mg Tamsulosin HCl (Flomax -) 0.4 mg PO DAILY [facility] Last Admin: 03/31/18 09:27 Dose: 0.4 mg cxray no infiltrate a/p s/p arrest- head ct with evolving cva fevers- trending down, wbc now normal cultures unrevealing s/p lumbar laminectomy continue vancomycin/zosyn (empiric) check vancomycin levels
[2018-04-01] MEDS: TAMSULOSIN HCL 0.4 MG CAP PO SCH (09:41)
[2018-04-01] MEDS: METOPROLOL TARTRATE 25 MG TABLET (FP) NGT SCH ×2 (09:41→21:22)
[2018-04-01] MEDS: ASPIRIN 81 MG CHEWABLE TABLETS PO SCH (09:41)
[2018-04-01] MEDS: LISINOPRIL 5 MG TABLET (FP) NGT SCH (09:41)
[2018-04-01] MEDS: PANTOPRAZOLE SODIUM 40 MG VIAL IVPUSH SCH (09:42)
[2018-04-01] MEDS: ARTIFICIAL TEARS (POLYVINYL ALCOHOL) OPTH DROPS OU PRN (10:00)
[2018-04-01] MEDS: CHLORHEXIDINE GLUCONATE 0.12% 15ML CUP MM SCH ×2 (10:03→21:23)
[2018-04-01] MEDS: MUPIROCIN 2% TOPICAL OINTMENT FOR DECOLONIZATION NS SCH ×2 (10:03→21:22)
--- NOTE | 2018-04-01 10:46 | PN ---
Progress Note (short form) - Note Progress Note: PULM/CCM SUBJECTIVE: Patient seen and examined in the ICU. 24Hr: -remains low grade temp on broad spectrum, ? storming -poor mental status but on prop/fent -hemodyamics stable OBJECTIVE: Vital Signs Temp 100.7 F H 04/01/18 10:00 Pulse 66 04/01/18 10:00 Resp 25 H 04/01/18 10:21 BP 142/65 04/01/18 10:00 Pulse Ox 98 04/01/18 10:21 Intake & Output 03/31/18 03/31/18 04/01/18 11:59 23:59 11:59 Intake Total 4508 962 Output Total 1000 1500 700 Balance -1000 3008 262 Weight 130 kg 126.5 kg Intake: IV 1097 112 DIPRIVAN - 1,000,000 mcg 307 77 In 100 ml @ 5 MCG/KG/MIN 3.742 mls/hr IVPB TITR SYLVIA Rx#:[id number] Normal Saline - 1,000 ml 750 @ 75 mls/hr IV ASDIR SYLVIA Rx#:[id number] Sublimaze Injection - 500 40 35 Mcg In D5w - 90 ml @ 25 MCG/HR 5 mls/hr IVPB TITR SYLVIA Rx#:[id number] IVPB 2311 300 Oral 60 Tube Feeding 900 420 Tube Irrigant 200 70 Output: Urine 1000 1500 700 Jimenez 1000 1500 700 Other: Voiding Method Indwelling Catheter Indwelling Catheter Bowel Movement Yes Yes: moderate pasty brown Yes # Bowel Movements 1 1 Body Mass Index (BMI) 39.9 Weight Measurement Method Built [facility] Active Medications Artificial Tears (Artificial Tears) 1 drop OU BID PRN PRN Reason: DRY EYES Last Admin: 03/30/18 17:18 Dose: 1 drop Aspirin (Asa -) 81 mg PO DAILY [facility] Last Admin: 04/01/18 09:41 Dose: 81 mg Atorvastatin Calcium (Lipitor -) 20 mg NGT HS [facility] Last Admin: 03/31/18 21:40 Dose: 20 mg Chlorhexidine Gluconate (Peridex -) 15 ml MM BID [facility] Last Admin: 04/01/18 10:03 Dose: 15 ml Glycerin (Glycerin Suppository Adult -) 1 each RC DAILY PRN PRN Reason: CONSTIPATION Heparin Sodium (Porcine) (Heparin -) 5,000 unit SQ TID [facility] Last Admin: 04/01/18 06:50 Dose: 5,000 unit Vancomycin HCl (Vancomycin 1 Gm Premix -) 1 gm in 200 mls @ 133.333 mls/hr IVPB BID@0100,1300 [facility] Last Admin: 04/01/18 00:06 Dose: 133.333 mls/hr Piperacillin Sod/Tazobactam (Sod 4.5 gm/ Dextrose) 100 mls @ 200 mls/hr IVPB Q8H-IV [facility]; Protocol Last Admin: 04/01/18 09:42 Dose: 200 mls/hr Insulin Aspart (Novolog Vial Sliding Scale -) 1 vial SQ Q6HPO [facility]; Protocol Last Admin: 04/01/18 06:50 Dose: 6 units Insulin Detemir (Levemir Vial) 30 units SQ HS [facility] Last Admin: 03/31/18 21:46 Dose: 30 units Lisinopril (Prinivil) 5 mg NGT DAILY [facility] Last Admin: 04/01/18 09:41 Dose: 5 mg Metoprolol Tartrate (Lopressor -) 25 mg NGT BID [facility] Last Admin: 04/01/18 09:41 Dose: 25 mg Mupirocin (Bactroban Ointment (For Decolonization) -) 1 applic NS BID [facility] Stop: 04/04/18 12:29 Last Admin: 04/01/18 10:03 Dose: 1 applic Ondansetron HCl (Zofran Injection) 4 mg IVPUSH Q6H PRN PRN Reason: NAUSEA AND/OR VOMITING Pantoprazole Sodium (Protonix Iv) 40 mg IVPUSH DAILY [facility] Last Admin: 04/01/18 09:42 Dose: 40 mg Tamsulosin HCl (Flomax -) 0.4 mg PO DAILY [facility] Last Admin: 04/01/18 09:41 Dose: 0.4 mg Gen: intubated, slight grimace to noxious stimuli, PERRL sluggish at 4mm Heart: RRR Lung: decreased breath sounds at the bases, scattered crackles Abd: soft, nontender, +BS Ext: + edema Neuro: over breaths, corneals +, weak gag CBCD WBC 9.9 K/mm3 (4.0-10.0) 04/01/18 05:30 RBC 3.03 M/mm3 (4.00-5.60) L 04/01/18 05:30 Hgb 8.8 GM/dL (11.7-16.9) L 04/01/18 05:30 Hct 26.5 % (35.4-49) L 04/01/18 05:30 MCV 87.2 fl (80-96) 04/01/18 05:30 MCHC 33.1 g/dl (32.0-35.9) 04/01/18 05:30 RDW 16.9 % (11.9-15.9) H 04/01/18 05:30 Plt Count 160 K/MM3 (134-434) 04/01/18 05:30 MPV 8.4 fl (7.5-11.1) 04/01/18 05:30 CMP Sodium 141 mmol/L (136-145) 04/01/18 05:30 Potassium 4.1 mmol/L (3.5-5.1) 04/01/18 05:30 Chloride 110 mmol/L (98-107) H 04/01/18 05:30 Carbon Dioxide 24 mmol/L (21-32) 04/01/18 05:30 Anion Gap 6 MMOL/L (8-16) L 04/01/18 05:30 BUN 23 mg/dL (7-18) H 04/01/18 05:30 Creatinine 0.9 mg/dL (0.55-1.3) 04/01/18 05:30 Creat Clearance w eGFR > 60 (>60) 04/01/18 05:30 Calcium 7.5 mg/dL (8.5-10.1) L 04/01/18 05:30 Total Bilirubin 0.6 mg/dL (0.2-1) 04/01/18 05:30 AST 38 U/L (15-37) H 04/01/18 05:30 ALT 38 U/L (13-61) 04/01/18 05:30 Alkaline Phosphatase 163 U/L (45-117) H 04/01/18 05:30 Total Protein 4.9 g/dl (6.4-8.2) L 04/01/18 05:30 Albumin 1.9 g/dl (3.4-5.0) L 04/01/18 05:30 ASSESSMENT AND PLAN: s/p PEA/?VTach Cardiopulmonary Arrest Anoxic Encephalopathy / Brain Injury s/p Lumbar Laminectomy CAD s/p CABG +Troponins likely Demand Ischemia LV Systolic/Diastolic Dysfunction HTN DM Hypercholesterolemia CKD - Neuro following, AEDs - sedation holiday today - beta blockers - ABX per ID - f/u cultures - hold all sedation to assess mental status - enteral feeds - DVT/GI prophylaxis - continue ICU monitoring Nicki NAVARRO [id number]
--- NOTE | 2018-04-01 12:34 | PN ---
Progress Note, Physician History of Present Illness: 62 yo m w/ PMH chronic back pain, CAD s/p CABG 2019 on plavix (held before surg) , HTN, HLD, IDDM, BPH who presented for a L1-S1 laminectomyy and T12-S1 posterior instrumentation. Case proceeded w/o issue with ebl 1200, until patient desatted prior to bone grafting. Wound was closed patient was turned over, at which point he lost pulse in PEA. Code 99 was called, high quality cpr was initiated and ROSC was achieved after aprox 25 min, including a shock and amiodarone. called for neurological evaluation. on prorfol and fentanyl sedation, cooling protocol. No brain imaging noted. I saw and examined the pt . 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 Chex Nadeem Paul MD - Current Medication List Current Medications: Active Medications Artificial Tears (Artificial Tears) 1 drop OU BID PRN PRN Reason: DRY EYES Last Admin: 03/30/18 17:18 Dose: 1 drop Aspirin (Asa -) 81 mg PO DAILY [facility] Last Admin: 04/01/18 09:41 Dose: 81 mg Atorvastatin Calcium (Lipitor -) 20 mg NGT HS [facility] Last Admin: 03/31/18 21:40 Dose: 20 mg Chlorhexidine Gluconate (Peridex -) 15 ml MM BID [facility] Last Admin: 04/01/18 10:03 Dose: 15 ml Glycerin (Glycerin Suppository Adult -) 1 each RC DAILY PRN PRN Reason: CONSTIPATION Heparin Sodium (Porcine) (Heparin -) 5,000 unit SQ TID [facility] Last Admin: 04/01/18 06:50 Dose: 5,000 unit Vancomycin HCl (Vancomycin 1 Gm Premix -) 1 gm in 200 mls @ 133.333 mls/hr IVPB BID@0100,1300 [facility] Last Admin: 04/01/18 00:06 Dose: 133.333 mls/hr Piperacillin Sod/Tazobactam (Sod 4.5 gm/ Dextrose) 100 mls @ 200 mls/hr IVPB Q8H-IV [facility]; Protocol Last Admin: 04/01/18 09:42 Dose: 200 mls/hr Insulin Aspart (Novolog Vial Sliding Scale -) 1 vial SQ Q6HPO [facility]; Protocol Last Admin: 04/01/18 06:50 Dose: 6 units Insulin Detemir (Levemir Vial) 30 units SQ HS [facility] Last Admin: 03/31/18 21:46 Dose: 30 units Lisinopril (Prinivil) 5 mg NGT DAILY [facility] Last Admin: 04/01/18 09:41 Dose: 5 mg Metoprolol Tartrate (Lopressor -) 25 mg NGT BID [facility] Last Admin: 04/01/18 09:41 Dose: 25 mg Mupirocin (Bactroban Ointment (For Decolonization) -) 1 applic NS BID [facility] Stop: 04/04/18 12:29 Last Admin: 04/01/18 10:03 Dose: 1 applic Ondansetron HCl (Zofran Injection) 4 mg IVPUSH Q6H PRN PRN Reason: NAUSEA AND/OR VOMITING Pantoprazole Sodium (Protonix Iv) 40 mg IVPUSH DAILY [facility] Last Admin: 04/01/18 09:42 Dose: 40 mg Tamsulosin HCl (Flomax -) 0.4 mg PO DAILY [facility] Last Admin: 04/01/18 09:41 Dose: 0.4 mg - Objective Vital Signs: Vital Signs Temperature 100.7 F H 04/01/18 10:00 Pulse Rate 60 04/01/18 11:49 Respiratory Rate 28 H 04/01/18 12:02 Blood Pressure 147/64 04/01/18 11:49 O2 Sat by Pulse Oximetry (%) 98 04/01/18 10:21 Labs: CBC, BMP 04/01/18 05:30 04/01/18 05:30 INR, PTT INR 1.19 (0.83-1.09) H 03/27/18 23:30
[2018-04-01] MEDS ORDERED: FOSPHENYTOIN SODIUM 100 MG/2 ML VIAL IVPB ONE (13:08)
[2018-04-01] MEDS ORDERED: PHENYTOIN SODIUM 100 MG/2 ML VIAL IVPB ONE (13:09)
[2018-04-01] MEDS ORDERED: PT OWN MED DRAWER 7, Y5N ONE (14:05)
[2018-04-01] MEDS ORDERED: INSULIN (NOVOLOG) ASPART 100 UNITS/ML 10ML VIAL ONE (16:38)
--- NOTE | 2018-04-01 16:49 | PN ---
Progress Note (short form) - Note Progress Note: Remains obtunded and on ventilatory support in ICU Off all anesthetic and sedative drugs except erasmo as listed. Wound draining Decrease in anaerobic odor. PLAN Continue medical mx in ICU Discussed the need for a tracheostomy and gastric peg Tuesday Will coordinate to perform an I and D and delayed primary closure.
[2018-04-01] MEDS: ATORVASTATIN CA 20 MG TABLET (FP) NGT SCH (21:22)
[2018-04-01] MEDS: INSULIN (LEVEMIR) 100 UNITS/ML UNITS SQ SCH (21:24)
[2018-04-01] MEDS ORDERED: PROPOFOL 1,000,000 MCG/100 ML VIAL IVPB SCH (22:00)
[2018-04-02] MEDS ORDERED: PIPERACILLIN/TAZOBACTAM 4.5 GM VIAL IVPB ONE ×3 (01:08→18:00)
[2018-04-02] MEDS ORDERED: DEXTROSE 5%-WATER 100 ML IVPB ONE ×3 (01:08→18:00)
[2018-04-02] MEDS: VANCOMYCIN 1 GM PREMIX - 1 GM/200 ML BAG IVPB SCH (01:30)
[2018-04-02] MEDS: PIPERACILLIN/TAZOB 4.5 GM 4.5 GM in DEXTROSE 5%-WATER 100 ML IVPB SCH ×3 (01:42→18:01)
[2018-04-02] MEDS ORDERED: VANCOMYCIN 1 GRAM (PRE-DOCKED) 1,000 MG/250 ML BAG IVPB SCH (01:45)
[2018-04-02 06:03] LABS: BASO % 0.5 % (0-2.0); EOS % 2.3 % (0-4.5); HEMATOCRIT 27.3 % (35.4-49); LYMPH % 13.3 % (8-40); MCH 28.9 pg (25.7-33.7); MEAN CELL VOLUME 87.5 fl (80-96); MEAN PLT VOLUME 8.2 fl (7.5-11.1); MONO % 11.6 % (3.8-10.2); NEUT % 72.3 % (42.8-82.8); PLATELET COUNT 204 K/MM3 (134-434); RBC 3.12 M/mm3 (4.00-5.60); RDW 16.5 % (11.9-15.9); WHITE BLOOD COUNT 10.4 K/mm3 (4.0-10.0)
[2018-04-02] MEDS: HEPARIN NA (PORCINE) 5,000 UNITS/ML 1ML VIAL SQ SCH ×3 (06:11→22:13)
[2018-04-02] MEDS: INSULIN SLIDING SCALE (NOVOLOG) 1 VIAL SQ SCH ×3 (06:11→17:57)
[2018-04-02 06:26] LABS: ALBUMIN 1.8 g/dl (3.4-5.0); ALK PHOS 186 U/L (45-117); ANION GAP 6 MMOL/L (8-16); BILIRUBIN,TOTAL 0.5 mg/dL (0.2-1); BLOOD UREA NITROGEN 20 mg/dL (7-18); CALCIUM 7.8 mg/dL (8.5-10.1); CHLORIDE 108 mmol/L (98-107); CO2 27 mmol/L (21-32); CREATININE 0.8 mg/dL (0.55-1.3); GLUCOSE,RANDOM 150 mg/dL (74-106); POTASSIUM 4.2 mmol/L (3.5-5.1); SGOT/AST 46 U/L (15-37); SGPT/ALT 44 U/L (13-61); SODIUM 141 mmol/L (136-145)
--- NOTE | 2018-04-02 07:31 | PN ---
Teaching Attending Note Name of Resident: Momo Navarro ATTENDING PHYSICIAN STATEMENT I saw and evaluated the patient. I reviewed the resident's note and discussed the case with the resident. I agree with the resident's findings and plan as documented. SUBJECTIVE:intubated/sedated OBJECTIVE: Last Vital Signs Temp Pulse Resp BP Pulse Ox 100.6 F H 74 26 H 147/64 99 04/02/18 06:00 04/02/18 06:00 04/02/18 06:56 04/02/18 06:00 04/01/18 21:00 Intake & Output 03/30/18 03/31/18 04/01/18 04/02/18 23:59 23:59 23:59 23:59 Intake Total 3200 4508 2207.7 Output Total 900 2500 1200 Balance 2300 2008 1007.7 Weight 286 lb 2.56 oz 286 lb 9.615 oz 278 lb 14.156 oz 284 lb 9.868 oz General intubated/sedated CV S1 S2 RRR no murmur/rub/gallop lungs CTA anteriorly, mechanical breath sounds Abdomen soft NT/ND Extremities 1+ pitting edema Neuro +gag, does not withdraw to pain ASSESSMENT AND PLAN: 62yo M with PMH Severe stenosis L2-L3 and L3-L4, HTN, DM and CAD S/p CABG presented for scheduled laminectomy however case was aborted due to de- saturation during the procedure and patient was flipped from prone position and noted to loose pulse and was PEA on the monitor. Code 99 was called and CPR initiated. received 1 shock and started on amio. ROSC achieved after approx 25mins. pt was started on hypothermia protocol and goal temp was achieved at 0800 this morning. 1. s/p cardiac arrest- s/p hypothermia protocol and re-warmed. cont lopressor/ acei/asa/statin. cardio on board 2. acute toxic/metabolic encephalopathy-concern for anoxic injury given prolonged CPR. no twitching today. on dilantin. f/u EEG. when sedation was held yesterday he was over breathing the vent but no purposeful movement or following commands. neuro on board 3. Acute hypoxic respiratory failure-noted prior to cardiac arrest. s/p intubated. on SIMV mode and able to initiate own breaths. vent management per ICU team 4. Fever- Tm 101.4, minimal leukcoytosis. plan for washout of the spine tomorrow. Vanco dose adjusted. will need to repeat trough. on vanco/zosyn day 4. all Cx NGTD. ID on baord. 5. HTN-improved. titrate medications as needed 6. DM-BGM and iSS 7. DVT ppx- hep sq 8. MICU monitoring. poor prognosis. ICU [employer] DES[employer] spoke with sisters yesterday regarding goals of care. Will discuss early this week to determine decision The care of this patient involved high complexity decision making to prevent further life threatening deterioration of the patient's condition and/or to evaluate & treat vital organ system(s) failure or risk of failure. 35 mins
[2018-04-02] MEDS ORDERED: PHENYTOIN SODIUM 100 MG/2 ML VIAL IVPB ONE (07:46)
--- NOTE | 2018-04-02 07:46 | PN ---
Physical Exam: SUBJECTIVE: Patient seen and examined at bedside. Intubated and sedated. urine output 40cc. tube feeds at 73cc/hr OBJECTIVE: Vital Signs Period Temp Pulse Resp BP Sys/Martinez Pulse Ox Last 24 Hr 99.9 F-101.4 F 60-81 19-30 114-191/55-88 98-100 GENERAL: A&Ox0, intubated and sedated EYES: PERRLA, EOMI ENT: Moist mucus membranes NECK: No JVD LUNGS: mechanical breath sounds HEART: systolic murmur, RRR ABDOMEN: Soft, BS present MUSCULOSKELETAL: No CVA Tenderness EXTREMITIES: 2+ pulses, no edema Laboratory Results - last 24 hr 04/01/18 04/01/18 04/01/18 13:45 14:00 16:50 WBC RBC Hgb Hct MCV MCH MCHC RDW Plt Count MPV Absolute Neuts (auto) Neutrophils % Lymphocytes % Monocytes % Eosinophils % Basophils % Nucleated RBC % Sodium Potassium Chloride Carbon Dioxide Anion Gap BUN Creatinine Creat Clearance w eGFR POC Glucometer 209.34811 195.21518 Random Glucose Calcium Total Bilirubin AST ALT Alkaline Phosphatase Total Protein Albumin Vancomycin Pre-Dose 9.7 L 04/01/18 04/02/18 04/02/18 23:11 05:23 05:30 WBC 10.4 H RBC 3.12 L Hgb 9.0 L Hct 27.3 L MCV 87.5 MCH 28.9 MCHC 33.0 RDW 16.5 H Plt Count 204 D MPV 8.2 Absolute Neuts (auto) 7.5 Neutrophils % 72.3 Lymphocytes % 13.3 D Monocytes % 11.6 H Eosinophils % 2.3 D Basophils % 0.5 D Nucleated RBC % 0 Sodium Potassium Chloride Carbon Dioxide Anion Gap BUN Creatinine Creat Clearance w eGFR POC Glucometer 244.67948 167.98106 Random Glucose Calcium Total Bilirubin AST ALT Alkaline Phosphatase Total Protein Albumin Vancomycin Pre-Dose 04/02/18 05:30 WBC RBC Hgb Hct MCV MCH MCHC RDW Plt Count MPV Absolute Neuts (auto) Neutrophils % Lymphocytes % Monocytes % Eosinophils % Basophils % Nucleated RBC % Sodium 141 Potassium 4.2 Chloride 108 H Carbon Dioxide 27 Anion Gap 6 L BUN 20 H Creatinine 0.8 Creat Clearance w eGFR > 60 POC Glucometer Random Glucose 150 H Calcium 7.8 L Total Bilirubin 0.5 AST 46 H ALT 44 Alkaline Phosphatase 186 H Total Protein 5.0 L Albumin 1.8 L Vancomycin Pre-Dose Active Medications Generic Name Dose Route Start Last Admin Trade Name Freq PRN Reason Stop Dose Admin Artificial Tears 1 drop 03/28/18 07:59 04/01/18 10:00 Artificial Tears OU 1 drop BID PRN Administration DRY EYES Aspirin 81 mg 03/30/18 10:00 04/01/18 09:41 Asa - PO 81 mg DAILY [facility] Administration Atorvastatin Calcium 20 mg 03/30/18 22:00 04/01/18 21:22 Lipitor - NGT 20 mg HS [facility] Administration Chlorhexidine Gluconate 15 ml 03/30/18 12:30 04/01/18 21:23 Peridex - MM 15 ml BID [facility] Administration Glycerin 1 each 03/27/18 21:55 Glycerin Suppository Adult - RC DAILY PRN CONSTIPATION Heparin Sodium (Porcine) 5,000 unit 03/30/18 22:00 04/02/18 06:11 Heparin - SQ 5,000 unit TID [facility] Administration Piperacillin Sod/Tazobactam 100 mls @ 200 mls/hr 03/30/18 12:00 04/02/18 01: 42 Sod 4.5 gm/ Dextrose IVPB 200 mls/hr Q8H-IV [facility] Administration Protocol Vancomycin HCl 1,000 mg in 250 mls @ 166.667 mls/hr 04/02/18 01:45 04/02/18 01:42 Vancomycin (Pre-Docked) IVPB 04/03/18 14:29 166.667 mls/hr BID@0100,1300 [facility] Administration Insulin Aspart 1 vial 03/30/18 15:45 04/02/18 06:11 Novolog Vial Sliding Scale - SQ 2 units Q6HPO [facility] Administration Protocol Insulin Detemir 30 units 03/27/18 22:00 04/01/18 21:24 Levemir Vial SQ 30 units HS [facility] Administration Lisinopril 5 mg 03/29/18 12:45 04/01/18 09:41 Prinivil NGT 5 mg DAILY [facility] Administration Metoprolol Tartrate 25 mg 03/30/18 11:00 04/01/18 21:22 Lopressor - NGT 25 mg BID [facility] Administration Mupirocin 1 applic 03/30/18 12:30 04/01/18 21:22 Bactroban Ointment (For Decolonization) - NS 10/09/18 12:29 1 applic BID [facility] Administration Ondansetron HCl 4 mg 03/27/18 21:56 Zofran Injection IVPUSH Q6H PRN NAUSEA AND/OR VOMITING Pantoprazole Sodium 40 mg 03/28/18 10:30 04/01/18 09:42 Protonix Iv IVPUSH 40 mg DAILY [facility] Administration Tamsulosin HCl 0.4 mg 03/28/18 10:00 04/01/18 09:41 Flomax - PO 0.4 mg DAILY [facility] Administration ASSESSMENT/PLAN: Patient is a 62 year old male with past medical history of chronic low back pain , CAD s/p CABG on plavix (held prior to surgery), HTN, HLD, DM, and BPH presented as outpatient for planned L1-S1 laminectomy and T12-S1 posterior instrumented spinal fusion. During the surgery, patient became pulseless, ACLS protocol initiated, and ROSC achieved. #Anoxic Brain Injury s/p cardiopulmonary arrest: patient's status unchanged from yesterday -cards consult -Echocardiography - EF 55%, no right heart strain, no wall motion abnormalities -Mechanically ventilated, fighting the vent- needs sedation -propofol for sedation, take off and evaluate response -Repeat head CT - evolving Left [employer] territory acute/subacute infarct. No gross mass lesion or ICH. No shift of midline structures or evidence of inferior herniation. Poor visualization of ye-white matter junction. There is paucity of cortical sulci. Cannot r/o brain swelling/edema. Basal cisterns are not effaced. #Spinal Wound: stable -Monitor wound #Leukocytosis and Fever: fever trending down (100.6 today) -continue abx vanc/zosyn #CAD s/p CABG -ASA 81mg through NGT #Hypertension: BP stable today -metoprolol 50 BID NGT -Lisinopril 10mg daily #Diabetes Mellitus -BGM -ISS #MIAN: resolved, likely due to hypoperfusion during arrest -likely 2/2 pre-renal from poor perfusion during the arrest -Jimenez catheter placed #FEN -no standing fluids -Tube feeding (high protein, low kcal) -replete lytes as needed #Prophylaxis -SCDS #Disposition -ICU for close monitoring -family meeting needed to discuss goals of care Visit type - Emergency Visit Emergency Visit: No - New Patient This patient is new to me today: No - Critical Care Critical Care patient: Yes Total Critical Care Time (in minutes): 41 Critical Care Statement: The care of this patient involved high complexity decision making to prevent further life threatening deterioration of the patient 's condition and/or to evaluate & treat vital organ system(s) failure or risk of failure.
--- NOTE | 2018-04-02 08:25 | PN ---
Progress Note (short form) - Note Progress Note: Chief Complaint: Events noted, notes reviewed, remains intubated, sedation to be D/C, tachypnea-noted off of sedsation History of Present Illness: Seen and examined in [facility] ICU. Events noted, notes reviewed, remains intubated, sedation to be D/C, tachypnea-noted off of sedsation Echocardiography dated 03/28/2018 revealed normal LV systolic function, with LVEF 0f 55%, walll motion cannot be assessed (upon study review there is abnormal septal motion consistent with prior open heart surgery), normal RV size and function and no significant valvular pathology CT scan of the head dated 03/29/2018 results noted Medications: Current Medications Artificial Tears (Artificial Tears) 1 drop OU BID PRN PRN Reason: DRY EYES Last Admin: 04/01/18 10:00 Dose: 1 drop Aspirin (Asa -) 81 mg PO DAILY [facility] Last Admin: 04/01/18 09:41 Dose: 81 mg Atorvastatin Calcium (Lipitor -) 20 mg NGT HS [facility] Last Admin: 04/01/18 21:22 Dose: 20 mg Chlorhexidine Gluconate (Peridex -) 15 ml MM BID [facility] Last Admin: 04/01/18 21:23 Dose: 15 ml Glycerin (Glycerin Suppository Adult -) 1 each RC DAILY PRN PRN Reason: CONSTIPATION Heparin Sodium (Porcine) (Heparin -) 5,000 unit SQ TID [facility] Last Admin: 04/02/18 06:11 Dose: 5,000 unit Piperacillin Sod/Tazobactam (Sod 4.5 gm/ Dextrose) 100 mls @ 200 mls/hr IVPB Q8H-IV [facility]; Protocol Last Admin: 04/02/18 01:42 Dose: 200 mls/hr Vancomycin HCl (Vancomycin (Pre-Docked)) 1,000 mg in 250 mls @ 166.667 mls/hr IVPB BID@0100,1300 [facility] Stop: 04/03/18 14:29 Last Admin: 04/02/18 01:42 Dose: 166.667 mls/hr Insulin Aspart (Novolog Vial Sliding Scale -) 1 vial SQ Q6HPO [facility]; Protocol Last Admin: 04/02/18 06:11 Dose: 2 units Insulin Detemir (Levemir Vial) 30 units SQ [facility] Last Admin: 04/01/18 21:24 Dose: 30 units Lisinopril (Prinivil) 5 mg NGT DAILY [facility] Last Admin: 04/01/18 09:41 Dose: 5 mg Metoprolol Tartrate (Lopressor -) 25 mg NGT BID [facility] Last Admin: 04/01/18 21:22 Dose: 25 mg Mupirocin (Bactroban Ointment (For Decolonization) -) 1 applic NS BID [facility] Stop: 04/04/18 12:29 Last Admin: 04/01/18 21:22 Dose: 1 applic Ondansetron HCl (Zofran Injection) 4 mg IVPUSH Q6H PRN PRN Reason: NAUSEA AND/OR VOMITING Pantoprazole Sodium (Protonix Iv) 40 mg IVPUSH DAILY [facility] Last Admin: 04/01/18 09:42 Dose: 40 mg Phenytoin Sodium (Dilantin Injection -) 100 mg IVPB ONCE ONE Stop: 04/02/18 07:47 Tamsulosin HCl (Flomax -) 0.4 mg PO DAILY [facility] Last Admin: 04/01/18 09:41 Dose: 0.4 mg Review of Systems Unable to obtain Vital Signs: Last Vital Signs Temp Pulse Resp BP Pulse Ox 100.6 F H 75 18 146/68 99 04/02/18 06:00 04/02/18 08:00 04/02/18 08:00 04/02/18 08:00 04/01/18 21:00 Intake & Output 03/30/18 03/31/18 04/01/18 04/02/18 23:59 23:59 23:59 23:59 Intake Total 3200 4508 2207.7 Output Total 900 2500 1200 Balance 2300 2008 1007.7 Weight 286 lb 2.56 oz 286 lb 9.615 oz 278 lb 14.156 oz 284 lb 9.868 oz Neck: Supple Negative JVD Respiratory: Bilateral Scattered Rhonchi Cardiovascular: S1 S2 Regular Rate and Rhythm Grade 1-2/6 ARMANI Gastrointestinal: Soft Benign Normal Bowel Sounds Ext: Trace Edema Chronic Venous Stasis Changes Labs: CBC, BMP 04/02/18 05:30 04/02/18 05:30 Hepatic Panel Total Bilirubin 0.5 mg/dL (0.2-1) 04/02/18 05:30 AST 46 U/L (15-37) H 04/02/18 05:30 ALT 44 U/L (13-61) 04/02/18 05:30 Alkaline Phosphatase 186 U/L (45-117) H 04/02/18 05:30 Albumin 1.8 g/dl (3.4-5.0) L 04/02/18 05:30 Assessment/Plan ASSESSMENT: 1. Post cardiopulmonary arrest/pulse-less electrical activity, ventricular tachycardia post resuscitation currently intubated, to be off sedation 2. Post operative day #6 post lumber laminectomy/L1-S1 laminectomy and T12-S1 posterior instrumentation 3. Anoxic brain injury to be considered in view of above clinical presentation, evidence of acute/subacute CVA on CT of the head 4. CAD post CABG angina pectoris with evidence of demand ischemic injury 5. LV diastolic dysfunction with class 0 NYHA classification LV failure 6. History of HTN 7. History of DM 8. History of hypercholesterolemia 9. Chronic kidney disease 10. Anemia PLAN: 1. Maintain off of Amiodarone since LV function is normal and primary event was not ventricular tachycardia 2. Continue Lopressor hemodynamics permitting and titrate dosage as needed and as tolerated 3. Continue Lisinopril hemodynamics permitting and titrate dosage as needed and as tolerated 4. Continue ASA and defer Plavix resumption specially if additional intervention is planned 5. Continue Lipitor 6. Neurology followup 7. Antibiotics as per ID service Condition ольгаed [place] M.D.
--- NOTE | 2018-04-02 09:01 | PN ---
Progress Note (short form) - Note Progress Note: PULM/CCM SUBJECTIVE: Patient seen and examined in the ICU. 24Hr: -improved mental status off sedation -family meeting yesterday, considering trach/peg, closure (does not appear in line with pt wishes however, to revisit today) -stable hemodynamics. -passing PS trial OBJECTIVE: Vital Signs Temp 100.6 F H 04/02/18 06:00 Pulse 75 04/02/18 08:40 Resp 26 H 04/02/18 08:40 BP 146/68 04/02/18 08:00 Pulse Ox 100 04/02/18 08:40 Intake & Output 04/01/18 04/01/18 04/02/18 11:59 23:59 11:59 Intake Total 962 1245.7 Output Total 700 500 Balance 262 745.7 Weight 126.5 kg 129.1 kg Intake: IV 112 45.7 DIPRIVAN - 1,000,000 mcg 77 31.7 In 100 ml @ 5 MCG/KG/MIN 3.742 mls/hr IVPB TITR [facility] Rx#:[id number] Sublimaze Injection - 500 35 14 Mcg In D5w - 90 ml @ 25 MCG/HR 5 mls/hr IVPB TITR SY[facility]IA Rx#:[id number] IVPB 300 500 Oral 60 Tube Feeding 420 600 Tube Irrigant 70 100 Output: Urine 700 500 Jimenez 700 500 Other: Voiding Method Indwelling Catheter Indwelling Catheter Bowel Movement Yes Weight Measurement Method [facility] Bed[facility] CBC,CMP WBC 10.4 K/mm3 (4.0-10.0) H 04/02/18 05:30 RBC 3.12 M/mm3 (4.00-5.60) L 04/02/18 05:30 Hgb 9.0 GM/dL (11.7-16.9) L 04/02/18 05:30 Hct 27.3 % (35.4-49) L 04/02/18 05:30 MCV 87.5 fl (80-96) 04/02/18 05:30 MCH 28.9 pg (25.7-33.7) 04/02/18 05:30 MCHC 33.0 g/dl (32.0-35.9) 04/02/18 05:30 RDW 16.5 % (11.9-15.9) H 04/02/18 05:30 Plt Count 204 K/MM3 (134-434) D 04/02/18 05:30 MPV 8.2 fl (7.5-11.1) 04/02/18 05:30 Absolute Neuts (auto) 7.5 K/mm3 (1.5-8.0) 04/02/18 05:30 Neutrophils % 72.3 % (42.8-82.8) 04/02/18 05:30 Neutrophils % (Manual) 90.7 % (42.8-82.8) H 03/28/18 05:30 Band Neutrophils % 3.1 % 03/28/18 05:30 Lymphocytes % 13.3 % (8-40) D 04/02/18 05:30 Lymphocytes % (Manual) 1.0 % (8-40) L D 03/28/18 05:30 Monocytes % 11.6 % (3.8-10.2) H 04/02/18 05:30 Monocytes % (Manual) 4 % (3.8-10.2) 03/28/18 05:30 Eosinophils % 2.3 % (0-4.5) D 04/02/18 05:30 Eosinophils % (Manual) 0.0 % (0-4.5) 03/28/18 05:30 Basophils % 0.5 % (0-2.0) D 04/02/18 05:30 Basophils % (Manual) 1.1 % (0-2.0) D 03/28/18 05:30 Myelocytes % (Man) 0 % (0-2) 03/28/18 05:30 Promyelocytes % (Man) 0 % (0-2) 03/28/18 05:30 Blast Cells % (Manual) 0 % (0-0) 03/28/18 05:30 Nucleated RBC % 0 % (0-0) 04/02/18 05:30 Metamyelocytes 0 % (0-2) 03/28/18 05:30 Hypochromia 0 03/28/18 05:30 Toxic Granulation 0 03/28/18 05:30 Dohle Bodies 0 03/28/18 05:30 Platelet Estimate Normal 03/28/18 05:30 Polychromasia 0 03/28/18 05:30 Poikilocytosis 0 03/28/18 05:30 Basophilic Stippling 0 03/28/18 05:30 Anisocytosis 0 03/28/18 05:30 Microcytosis 0 03/28/18 05:30 Macrocytosis 0 03/28/18 05:30 Spherocytes 0 03/28/18 05:30 Sickle Cells 0 03/28/18 05:30 Target Cells 0 03/28/18 05:30 Tear Drop Cells 0 03/28/18 05:30 Ovalocytes 0 03/28/18 05:30 Stomatocytes 0 03/28/18 05:30 Helmet Cells 0 03/28/18 05:30 [place] Bodies 0 03/28/18 05:30 [place] Rings 0 03/28/18 05:30 Saniya Cells 0 03/28/18 05:30 Acanthocytes (Spur) 0 03/28/18 05:30 Rouleaux 0 03/28/18 05:30 Fragmented RBCs 0 03/28/18 05:30 Schistocytes 0 03/28/18 05:30 Sodium 141 mmol/L (136-145) 04/02/18 05:30 Potassium 4.2 mmol/L (3.5-5.1) 04/02/18 05:30 Chloride 108 mmol/L (98-107) H 04/02/18 05:30 Carbon Dioxide 27 mmol/L (21-32) 04/02/18 05:30 Anion Gap 6 MMOL/L (8-16) L 04/02/18 05:30 BUN 20 mg/dL (7-18) H 04/02/18 05:30 Creatinine 0.8 mg/dL (0.55-1.3) 04/02/18 05:30 Creat Clearance w eGFR > 60 (>60) 04/02/18 05:30 POC Glucometer 167.44015 UNITS (80-120) 04/02/18 05:23 Random Glucose 150 mg/dL (74-106) H 04/02/18 05:30 Lactic Acid 1.7 mmol/L (0.4-2.0) 03/29/18 17:30 Calcium 7.8 mg/dL (8.5-10.1) L 04/02/18 05:30 Phosphorus 2.8 mg/dL (2.5-4.9) 04/01/18 05:30 Magnesium 2.5 mg/dL (1.8-2.4) H 04/01/18 05:30 Total Bilirubin 0.5 mg/dL (0.2-1) 04/02/18 05:30 AST 46 U/L (15-37) H 04/02/18 05:30 ALT 44 U/L (13-61) 04/02/18 05:30 Alkaline Phosphatase 186 U/L (45-117) H 04/02/18 05:30 Creatine Kinase 469 IU/L (26-308) H 03/27/18 23:30 Creatine Kinase Index 1.4 % (0.0-5.0) 03/27/18 23:30 CK-MB (CK-2) 6.8 ng/mL (0.5-3.6) H 03/27/18 23:30 Troponin I 3.12 ng/ml (0.00-0.05) H* 03/29/18 05:30 Total Protein 5.0 g/dl (6.4-8.2) L 04/02/18 05:30 Albumin 1.8 g/dl (3.4-5.0) L 04/02/18 05:30 Active Medications Artificial Tears (Artificial Tears) 1 drop OU BID PRN PRN Reason: DRY EYES Last Admin: 04/01/18 10:00 Dose: 1 drop Aspirin (Asa -) 81 mg PO DAILY [facility] Last Admin: 04/01/18 09:41 Dose: 81 mg Atorvastatin Calcium (Lipitor -) 20 mg NGT HS [facility] Last Admin: 04/01/18 21:22 Dose: 20 mg Chlorhexidine Gluconate (Peridex -) 15 ml MM BID [facility] Last Admin: 04/01/18 21:23 Dose: 15 ml Glycerin (Glycerin Suppository Adult -) 1 each RC DAILY PRN PRN Reason: CONSTIPATION Heparin Sodium (Porcine) (Heparin -) 5,000 unit SQ TID [facility] Last Admin: 04/02/18 06:11 Dose: 5,000 unit Piperacillin Sod/Tazobactam (Sod 4.5 gm/ Dextrose) 100 mls @ 200 mls/hr IVPB Q8H-IV [facility]; Protocol Last Admin: 04/02/18 01:42 Dose: 200 mls/hr Vancomycin HCl (Vancomycin (Pre-Docked)) 1,000 mg in 250 mls @ 166.667 mls/hr IVPB BID@0100,1300 [facility] Stop: 04/03/18 14:29 Last Admin: 04/02/18 01:42 Dose: 166.667 mls/hr Insulin Aspart (Novolog Vial Sliding Scale -) 1 vial SQ Q6HPO [facility]; Protocol Last Admin: 04/02/18 06:11 Dose: 2 units Insulin Detemir (Levemir Vial) 30 units SQ HS [facility] Last Admin: 04/01/18 21:24 Dose: 30 units Lisinopril (Prinivil) 10 mg NGT DAILY [facility] Metoprolol Tartrate (Lopressor -) 50 mg NGT BID [facility] Mupirocin (Bactroban Ointment (For Decolonization) -) 1 applic NS BID [facility] Stop: 04/04/18 12:29 Last Admin: 04/01/18 21:22 Dose: 1 applic Ondansetron HCl (Zofran Injection) 4 mg IVPUSH Q6H PRN PRN Reason: NAUSEA AND/OR VOMITING Pantoprazole Sodium (Protonix Iv) 40 mg IVPUSH DAILY [facility] Last Admin: 04/01/18 09:42 Dose: 40 mg Phenytoin Sodium (Dilantin Injection -) 100 mg IVPB ONCE ONE Stop: 04/02/18 07:47 Tamsulosin HCl (Flomax -) 0.4 mg PO DAILY [facility] Last Admin: 04/01/18 09:41 Dose: 0.4 mg Gen: intubated, slight grimace to noxious stimuli, PERRL sluggish at 4mm Heart: RRR Lung: decreased breath sounds at the bases, scattered crackles Abd: soft, nontender, +BS Ext: + edema Neuro: over breaths, corneals +, weak gag, yawning, slight withdraw to noxious ASSESSMENT AND PLAN: s/p PEA/?VTach Cardiopulmonary Arrest Anoxic Encephalopathy / Brain Injury s/p Lumbar Laminectomy CAD s/p CABG +Troponins likely Demand Ischemia LV Systolic/Diastolic Dysfunction HTN DM Hypercholesterolemia CKD - Neuro following, AEDs, gave extra 300 of dilantin yestterday, and 100 this am - hold all sedation - beta blockers - ABX per ID - f/u cultures - enteral feeds - DVT/GI prophylaxis - continue ICU monitoring - neuro surg revision and trach if family amenable Nicki [facility] [id number]
[2018-04-02 09:04] LABS: ANISOCYTOSIS 1+; MACROCYTOSIS 0; PLATELET ESTIMATE NORMAL
[2018-04-02] MEDS: PANTOPRAZOLE SODIUM 40 MG VIAL IVPUSH SCH (09:11)
[2018-04-02] MEDS: TAMSULOSIN HCL 0.4 MG CAP PO SCH (09:15)
[2018-04-02] MEDS: CHLORHEXIDINE GLUCONATE 0.12% 15ML CUP MM SCH (09:15)
[2018-04-02] MEDS: ASPIRIN 81 MG CHEWABLE TABLETS PO SCH (09:15)
[2018-04-02] MEDS: MUPIROCIN 2% TOPICAL OINTMENT FOR DECOLONIZATION NS SCH ×2 (09:16→22:13)
[2018-04-02] MEDS: LISINOPRIL 5 MG TABLET (FP) NGT SCH (09:28)
[2018-04-02] MEDS: METOPROLOL TARTRATE 50 MG TABLET (FP) NGT SCH ×2 (09:29→22:11)
--- NOTE | 2018-04-02 09:31 | PN ---
Progress Note (short form) - Note Progress Note: ID f/u remains intubated sedation is off he doesnot follow commands intermittent fevers Vital Signs Period Temp Pulse Resp BP Sys/Martinez Pulse Ox Last 24 Hr 99.9 F-101.4 F 60-81 18-30 114-191/55-88 98-100 cor-rrr lungs decreased bs at bases abd soft,nt ext no edema dressing intact on back CBC, BMP 04/02/18 05:30 04/02/18 05:30 Microbiology 03/31/18 15:30 Sputum - Endotrachea Suction/Ventilator Gram Stain - Final 03/31/18 15:30 Sputum - Endotrachea Suction/Ventilator Sputum Culture - Preliminary NORMAL RESPIRATORY ZULLY 03/29/18 17:30 Blood - Central Line Blood Culture - Preliminary NO GROWTH OBTAINED AFTER 72 HOURS, INCUBATION TO CONTINUE FOR 2 DAYS. 03/29/18 17:30 Blood - Central Line Blood Culture - Preliminary NO GROWTH OBTAINED AFTER 72 HOURS, INCUBATION TO CONTINUE FOR 2 DAYS. 03/30/18 11:00 Back Gram Stain - Final 03/30/18 11:00 Back Wound Culture - Final NO AEROBIC OR ANAEROBIC GROWTH OBTAINED. 03/29/18 17:30 Urine - Urine Jimenez Urine Culture - Final NO GROWTH OBTAINED Laboratory Tests 04/01/18 13:45 Vancomycin Pre-Dose 9.7 L Current Medications Artificial Tears (Artificial Tears) 1 drop OU BID PRN PRN Reason: DRY EYES Last Admin: 04/01/18 10:00 Dose: 1 drop Aspirin (Asa -) 81 mg PO DAILY [facility] Last Admin: 04/02/18 09:15 Dose: 81 mg Atorvastatin Calcium (Lipitor -) 20 mg NGT HS [facility] Last Admin: 04/01/18 21:22 Dose: 20 mg Chlorhexidine Gluconate (Peridex -) 15 ml MM BID [facility] Last Admin: 04/02/18 09:15 Dose: 15 ml Glycerin (Glycerin Suppository Adult -) 1 each RC DAILY PRN PRN Reason: CONSTIPATION Heparin Sodium (Porcine) (Heparin -) 5,000 unit SQ TID [facility] Last Admin: 04/02/18 06:11 Dose: 5,000 unit Piperacillin Sod/Tazobactam (Sod 4.5 gm/ Dextrose) 100 mls @ 200 mls/hr IVPB Q8H-IV [facility]; Protocol Last Admin: 04/02/18 09:09 Dose: 200 mls/hr Vancomycin HCl (Vancomycin (Pre-Docked)) 1,000 mg in 250 mls @ 166.667 mls/hr IVPB BID@0100,1300 [facility] Stop: 04/03/18 14:29 Last Admin: 04/02/18 01:42 Dose: 166.667 mls/hr Insulin Aspart (Novolog Vial Sliding Scale -) 1 vial SQ Q6HPO [facility]; Protocol Last Admin: 04/02/18 06:11 Dose: 2 units Insulin Detemir (Levemir Vial) 30 units SQ HS [facility] Last Admin: 04/01/18 21:24 Dose: 30 units Lisinopril (Prinivil) 10 mg NGT DAILY [facility] Last Admin: 04/02/18 09:28 Dose: 10 mg Metoprolol Tartrate (Lopressor -) 50 mg NGT BID [facility] Mupirocin (Bactroban Ointment (For Decolonization) -) 1 applic NS BID [facility] Stop: 04/04/18 12:29 Last Admin: 04/02/18 09:16 Dose: 1 applic Ondansetron HCl (Zofran Injection) 4 mg IVPUSH Q6H PRN PRN Reason: NAUSEA AND/OR VOMITING Pantoprazole Sodium (Protonix Iv) 40 mg IVPUSH DAILY [facility] Last Admin: 04/02/18 09:11 Dose: 40 mg Tamsulosin HCl (Flomax -) 0.4 mg PO DAILY [facility] Last Admin: 04/02/18 09:15 Dose: 0.4 mg cxray no infiltrate a/p s/p arrest- head ct with evolving cva fevers- cultures negative s/p lumbar laminectomy- surgery note reviewed- plans for washout and closure continue vancomycin/zosyn (empiric) increase vancomycin to 1250 bid continue zosyn
[2018-04-02] MEDS: VANCOMYCIN 1,250 MG in DEXTROSE 5%-WATER - 250 ML IVPB SCH (14:10)
[2018-04-02 16:04] LABS: URINE APPEARANCE CLOUDY; URINE BILIRUBIN NEGATIVE (<2.0 mg/dL); URINE COLOR YELLOW; URINE GLUCOSE (UA) 3+ (NEGATIVE); URINE KETONE NEGATIVE (NEGATIVE); URINE LEUK ESTERASE NEGATIVE (NEGATIVE); URINE NITRITE NEGATIVE (NEGATIVE); URINE PROTEIN 2+ (NEGATIVE); URINE UROBILINOGEN NEGATIVE mg/dL (0.2-1.0)
[2018-04-02 16:27] LABS: EPI CELLS RARE /HPF (FEW); URINE HYALINE CAST 3 /lpf; URINE MUCUS RARE
[2018-04-02] MEDS ORDERED: hydrALAZINE HCL 20 MG/ML VIAL IVPUSH ONE (20:16)
[2018-04-02] MEDS: ATORVASTATIN CA 20 MG TABLET (FP) NGT SCH (22:11)
[2018-04-02] MEDS: INSULIN (LEVEMIR) 100 UNITS/ML UNITS SQ SCH (22:26)
[2018-04-02] MEDS ORDERED: PROPOFOL 200 MG/20 ML VIAL IVPUSH PRN (23:13)
[2018-04-02] MEDS ORDERED: PROPOFOL 1,000,000 MCG/100 ML VIAL IVPB SCH (23:30)
[2018-04-03] MEDS: VANCOMYCIN 1,250 MG in DEXTROSE 5%-WATER - 250 ML IVPB SCH ×2 (00:49→13:31)
[2018-04-03] MEDS ORDERED: PIPERACILLIN/TAZOBACTAM 4.5 GM VIAL IVPB ONE ×3 (02:34→16:56)
[2018-04-03] MEDS ORDERED: DEXTROSE 5%-WATER 100 ML IVPB ONE ×3 (02:35→16:57)
[2018-04-03] MEDS: PIPERACILLIN/TAZOB 4.5 GM 4.5 GM in DEXTROSE 5%-WATER 100 ML IVPB SCH ×3 (03:30→17:06)
[2018-04-03] MEDS: HEPARIN NA (PORCINE) 5,000 UNITS/ML 1ML VIAL SQ SCH ×3 (05:22→22:50)
[2018-04-03] MEDS: INSULIN SLIDING SCALE (NOVOLOG) 1 VIAL SQ SCH ×4 (06:35→18:03)
[2018-04-03 07:27] LABS: HEMATOCRIT 31.3 % (35.4-49); HEMOGLOBIN 10.2 GM/dL (11.7-16.9); MCH 28.3 pg (25.7-33.7); MCHC 32.7 g/dl (32.0-35.9); MEAN CELL VOLUME 86.4 fl (80-96); MEAN PLT VOLUME 8.5 fl (7.5-11.1); PLATELET COUNT 254 K/MM3 (134-434); RBC 3.62 M/mm3 (4.00-5.60); RDW 16.4 % (11.9-15.9); WHITE BLOOD COUNT 14.6 K/mm3 (4.0-10.0)
[2018-04-03 07:37] LABS: ALBUMIN 1.8 g/dl (3.4-5.0); ALK PHOS 232 U/L (45-117); ANION GAP 9 MMOL/L (8-16); BILIRUBIN,TOTAL 0.6 mg/dL (0.2-1); BLOOD UREA NITROGEN 20 mg/dL (7-18); CALCIUM 7.9 mg/dL (8.5-10.1); CHLORIDE 104 mmol/L (98-107); CO2 25 mmol/L (21-32); CREATININE 0.7 mg/dL (0.55-1.3); GLUCOSE,RANDOM 251 mg/dL (74-106); MAGNESIUM 2.2 mg/dL (1.8-2.4); PHOSPHOROUS 2.8 mg/dL (2.5-4.9); POTASSIUM 4.6 mmol/L (3.5-5.1); SGOT/AST 97 U/L (15-37); SGPT/ALT 77 U/L (13-61); SODIUM 138 mmol/L (136-145); TOT PROT 5.4 g/dl (6.4-8.2)
[2018-04-03] MEDS: MUPIROCIN 2% TOPICAL OINTMENT FOR DECOLONIZATION NS SCH ×2 (09:44→22:57)
[2018-04-03] MEDS: METOPROLOL TARTRATE 50 MG TABLET (FP) NGT SCH ×2 (09:44→22:51)
[2018-04-03] MEDS: ASPIRIN 81 MG CHEWABLE TABLETS PO SCH (09:45)
[2018-04-03] MEDS: CHLORHEXIDINE GLUCONATE 0.12% 15ML CUP MM SCH ×3 (09:45→22:57)
[2018-04-03] MEDS: LISINOPRIL 5 MG TABLET (FP) NGT SCH (09:46)
[2018-04-03] MEDS: PANTOPRAZOLE SODIUM 40 MG VIAL IVPUSH SCH (09:54)
[2018-04-03] MEDS: ARTIFICIAL TEARS (POLYVINYL ALCOHOL) OPTH DROPS OU PRN (09:55)
[2018-04-03] MEDS: TAMSULOSIN HCL 0.4 MG CAP PO SCH (10:35)
--- NOTE | 2018-04-03 11:52 | PN ---
Progress Note, Physician History of Present Illness: Off sedation Unresponsive on ventilator Temps down Afebrile WBC 14.6 Cultures no growth - Current Medication List Current Medications: Active Medications Artificial Tears (Artificial Tears) 1 drop OU BID PRN PRN Reason: DRY EYES Last Admin: 04/03/18 09:55 Dose: 1 drop Aspirin (Asa -) 81 mg PO DAILY [facility] Last Admin: 04/03/18 09:45 Dose: 81 mg Atorvastatin Calcium (Lipitor -) 20 mg NGT HS [facility] Last Admin: 04/02/18 22:11 Dose: 20 mg Chlorhexidine Gluconate (Peridex -) 15 ml MM BID [facility] Last Admin: 04/03/18 09:45 Dose: 15 ml Glycerin (Glycerin Suppository Adult -) 1 each RC DAILY PRN PRN Reason: CONSTIPATION Heparin Sodium (Porcine) (Heparin -) 5,000 unit SQ TID [facility] Last Admin: 04/03/18 05:22 Dose: 5,000 unit Piperacillin Sod/Tazobactam (Sod 4.5 gm/ Dextrose) 100 mls @ 200 mls/hr IVPB Q8H-IV [facility]; Protocol Last Admin: 04/03/18 09:55 Dose: 200 mls/hr Vancomycin HCl 1,250 mg/ (Dextrose) 250 mls @ 166.667 mls/hr IVPB Q12H [facility]; Protocol Last Admin: 04/03/18 00:49 Dose: 166.667 mls/hr Propofol (Diprivan -) 1,000,000 mcg in 100 mls @ 3.873 mls/hr IVPB TITR [facility]; Protocol Last Titration: 04/03/18 07:00 Dose: 8 mcg/kg/min, 6.197 mls/hr Insulin Aspart (Novolog Vial Sliding Scale -) 1 vial SQ Q6HPO [facility]; Protocol Last Admin: 04/03/18 11:39 Dose: 6 units Insulin Detemir (Levemir Vial) 30 units SQ HS [facility] Last Admin: 04/02/18 22:26 Dose: 30 units Lisinopril (Prinivil) 10 mg NGT DAILY [facility] Last Admin: 04/03/18 09:46 Dose: 10 mg Metoprolol Tartrate (Lopressor -) 50 mg NGT BID [facility] Last Admin: 04/03/18 09:44 Dose: 50 mg Mupirocin (Bactroban Ointment (For Decolonization) -) 1 applic NS BID [facility] Stop: 04/04/18 12:29 Last Admin: 04/03/18 09:44 Dose: 1 applic Ondansetron HCl (Zofran Injection) 4 mg IVPUSH Q6H PRN PRN Reason: NAUSEA AND/OR VOMITING Pantoprazole Sodium (Protonix Iv) 40 mg IVPUSH DAILY [facility] Last Admin: 04/03/18 09:54 Dose: 40 mg Tamsulosin HCl (Flomax -) 0.4 mg PO DAILY [facility] Last Admin: 04/03/18 10:35 Dose: Not Given - Objective Vital Signs: Vital Signs Temperature 99 F 04/03/18 10:00 Pulse Rate 72 04/03/18 11:00 Respiratory Rate 24 H 04/03/18 11:37 Blood Pressure 156/73 04/03/18 11:00 O2 Sat by Pulse Oximetry (%) 99 04/03/18 10:00 Constitutional: Yes: Obese Eyes: Yes: Conjunctiva Clear Cardiovascular: Yes: Regular Rate and Rhythm, S1, S2 Respiratory: Yes: Mechanically Ventilated Gastrointestinal: Yes: Normal Bowel Sounds, Soft, Abdomen, Obese. No: Tenderness Edema: Yes Labs: CBC, BMP 04/03/18 05:30 04/03/18 05:30 INR, PTT INR 1.19 (0.83-1.09) H 03/27/18 23:30 Assessment/Plan S/P cardiopulmonary arrest Fever/ leukocytosis R/O sepsis Diabetes mellitus S/P laminectomy continue empiric zosyn/ vancomycin ventilatory/ hemodynamic support Prognosis guarded
--- NOTE | 2018-04-03 12:16 | PN ---
Progress Note, Physician History of Present Illness: Remains on mechanical ventilation off sedation, no arrhythmias on telemetry, hemodynamics stable, fevers improved. - Current Medication List Current Medications: Active Medications Artificial Tears (Artificial Tears) 1 drop OU BID PRN PRN Reason: DRY EYES Last Admin: 04/03/18 09:55 Dose: 1 drop Aspirin (Asa -) 81 mg PO DAILY [facility] Last Admin: 04/03/18 09:45 Dose: 81 mg Atorvastatin Calcium (Lipitor -) 20 mg NGT HS [facility] Last Admin: 04/02/18 22:11 Dose: 20 mg Chlorhexidine Gluconate (Peridex -) 15 ml MM BID [facility] Last Admin: 04/03/18 09:45 Dose: 15 ml Glycerin (Glycerin Suppository Adult -) 1 each RC DAILY PRN PRN Reason: CONSTIPATION Heparin Sodium (Porcine) (Heparin -) 5,000 unit SQ TID [facility] Last Admin: 04/03/18 05:22 Dose: 5,000 unit Piperacillin Sod/Tazobactam (Sod 4.5 gm/ Dextrose) 100 mls @ 200 mls/hr IVPB Q8H-IV [facility]; Protocol Last Admin: 04/03/18 09:55 Dose: 200 mls/hr Vancomycin HCl 1,250 mg/ (Dextrose) 250 mls @ 166.667 mls/hr IVPB Q12H [facility]; Protocol Last Admin: 04/03/18 00:49 Dose: 166.667 mls/hr Propofol (Diprivan -) 1,000,000 mcg in 100 mls @ 3.873 mls/hr IVPB TITR [facility]; Protocol Last Titration: 04/03/18 07:00 Dose: 8 mcg/kg/min, 6.197 mls/hr Insulin Aspart (Novolog Vial Sliding Scale -) 1 vial SQ Q6HPO [facility]; Protocol Last Admin: 04/03/18 11:39 Dose: 6 units Insulin Detemir (Levemir Vial) 30 units SQ HS [facility] Last Admin: 04/02/18 22:26 Dose: 30 units Lisinopril (Prinivil) 10 mg NGT DAILY [facility] Last Admin: 04/03/18 09:46 Dose: 10 mg Metoprolol Tartrate (Lopressor -) 50 mg NGT BID [facility] Last Admin: 04/03/18 09:44 Dose: 50 mg Mupirocin (Bactroban Ointment (For Decolonization) -) 1 applic NS BID [facility] Stop: 04/04/18 12:29 Last Admin: 04/03/18 09:44 Dose: 1 applic Ondansetron HCl (Zofran Injection) 4 mg IVPUSH Q6H PRN PRN Reason: NAUSEA AND/OR VOMITING Pantoprazole Sodium (Protonix Iv) 40 mg IVPUSH DAILY [facility] Last Admin: 04/03/18 09:54 Dose: 40 mg Tamsulosin HCl (Flomax -) 0.4 mg PO DAILY [facility] Last Admin: 04/03/18 10:35 Dose: Not Given - Objective Vital Signs: Vital Signs Temperature 99 F 04/03/18 10:00 Pulse Rate 72 04/03/18 11:00 Respiratory Rate 24 H 04/03/18 11:37 Blood Pressure 156/73 04/03/18 11:00 O2 Sat by Pulse Oximetry (%) 99 04/03/18 10:00 Neck: Yes: Supple Cardiovascular: Yes: Regular Rate and Rhythm Respiratory: Yes: Intubated, Mechanically Ventilated Gastrointestinal: Yes: Normal Bowel Sounds, Soft Edema: No Labs: CBC, BMP 04/03/18 05:30 04/03/18 05:30 INR, PTT INR 1.19 (0.83-1.09) H 03/27/18 23:30 Problem List - Problems (1) Status post lumbar laminectomy Code(s): Z98.890 - OTHER SPECIFIED POSTPROCEDURAL STATES (2) CAD (coronary artery disease) Code(s): I25.10 - ATHSCL HEART DISEASE OF [place] CORONARY ARTERY W/O ANG PCTRS Qualifiers: Coronary Disease-Associated Artery/Lesion type: [place] artery [place] vs. transplanted heart: [place] heart Associated angina: without angina Qualified Code(s): I25.10 - Atherosclerotic heart disease of [place] coronary artery without angina pectoris (3) Cardiac arrest Code(s): I46.9 - CARDIAC ARREST, CAUSE UNSPECIFIED (4) Encephalopathy acute Code(s): G93.40 - ENCEPHALOPATHY, UNSPECIFIED (5) HLD (hyperlipidemia) Code(s): E78.5 - HYPERLIPIDEMIA, UNSPECIFIED Qualifiers: Hyperlipidemia type: pure hypercholesterolemia Qualified Code(s): E78.00 - Pure hypercholesterolemia, unspecified; E78.0 - Pure hypercholesterolemia (6) HTN (hypertension) Code(s): I10 - ESSENTIAL (PRIMARY) HYPERTENSION Qualifiers: Hypertension type: essential hypertension Qualified Code(s): I10 - Essential (primary) hypertension (7) Hx of CABG Code(s): Z95.1 - PRESENCE OF AORTOCORONARY BYPASS GRAFT (8) Insulin dependent diabetes mellitus Code(s): E11.9 - TYPE 2 DIABETES MELLITUS WITHOUT COMPLICATIONS; Z79.4 - [employer] CONSULTANT (CURRENT) USE OF INSULIN (9) Demand ischemia Code(s): I24.8 - OTHER FORMS OF ACUTE ISCHEMIC HEART DISEASE Assessment/Plan 03/28/2018 Echocardiography report noted, normal LV systolic function, with LVEF 0f 55%, walll motion cannot be assessed (upon study review there is abnormal septal motion consistent with prior open heart surgery) no significant valvular pathology, normal RV size and fxn. 03/29/2018 CT suspicious for ischemia left posterior circulation ASSESSMENT: 1. Post cardiopulmonary arrest/pulse-less electrical activity, ventricular tachycardia post resuscitation currently ventilator-dependent 2. Post operative day #7 post L1-S1 laminectomy and T12-S1 posterior instrumentation 3. Anoxic brain injury to be considered in view of above clinical presentation, evidence of acute/subacute CVA on CT of the head 4. CAD post CABG angina pectoris with demand ischemia - troponins have peaked 5. LV diastolic dysfunction with class 0 NYHA classification LV failure 6. HTN 7. DM 8. hypercholesterolemia PLAN: 1. Continue Lopressor 50 bid, lisinopril 5 qd, ASA 81 qd, and Lipitor 20 qd 2. Hold off on Plavix resumption if additional intervention is planned 3. Neurology evaluation appreciated, EEG shows left temporal seizures and diffuse encephelopathy, seizure prophylaxis 4. Hold sedation s/p hypothermia protocol as tolerated 5. Empiric abx coverage per ID for open wound and fever, f/u C&S 6. DVT/GI prophylaxis 7. GOC to be addressed
--- NOTE | 2018-04-03 13:42 | PN ---
Teaching Attending Note Name of Resident: Isabella Velazquez ATTENDING PHYSICIAN STATEMENT I saw and evaluated the patient. I reviewed the resident's note and discussed the case with the resident. I agree with the resident's findings and plan as documented. SUBJECTIVE:intubated/sedated OBJECTIVE: Last Vital Signs Temp Pulse Resp BP Pulse Ox 99 F 74 26 H 170/74 99 04/03/18 10:00 04/03/18 12:00 04/03/18 12:00 04/03/18 12:00 04/03/18 10:00 General intubated/sedated CV S1 S2 RRR no murmur/rub/gallop lungs CTA anteriorly, mechanical breath sounds Abdomen soft NT/ND Extremities 1+ pitting edema Neuro +gag, +pupil reflex. does not withdraw to pain ASSESSMENT AND PLAN: 62yo M with PMH Severe stenosis L2-L3 and L3-L4, HTN, DM and CAD S/p CABG presented for scheduled laminectomy however case was aborted due to de- saturation during the procedure and patient was flipped from prone position and noted to loose pulse and was PEA on the monitor. Code 99 was called and CPR initiated. received 1 shock and started on amio. ROSC achieved after approx 25mins. pt was started on hypothermia protocol and goal temp was achieved at 0800 this morning. 1. s/p cardiac arrest- s/p hypothermia protocol and re-warmed. cont lopressor/ acei/asa/statin. cardio on board 2. acute toxic/metabolic encephalopathy-concern for anoxic injury given prolonged CPR. no seizure activity noted today. on dilantin. check levels in a few days. f/u EEG. when sedation was held yesterday he was over breathing the vent but no purposeful movement or following commands. neuro on board 3. Acute hypoxic respiratory failure-noted prior to cardiac arrest. s/p intubated. on SIMV mode and able to initiate own breaths. vent management per ICU team 4. Fever- Tm 102, minimal leukcoytosis. plan for washout of the spine today or tomorrow by ortho team. Vanco dose adjusted. will need to repeat trough. on vanco/zosyn day 5. all Cx NGTD. ID on baord. 5. HTN-improved. titrate medications as needed 6. DM-BGM and iSS 7. DVT ppx- hep sq 8. MICU monitoring. poor prognosis. ICU GAG WRITER spoke with sisters regarding goals of care. Will discuss early this week to determine decision as they expressed his wishes were to avoid spending his life in an institution The care of this patient involved high complexity decision making to prevent further life threatening deterioration of the patient's condition and/or to evaluate & treat vital organ system(s) failure or risk of failure. 35 mins
--- NOTE | 2018-04-03 14:07 | PN ---
Teaching Attending Note Name of Resident: China Randle ATTENDING PHYSICIAN STATEMENT I saw and evaluated the patient. I reviewed the resident's note and discussed the case with the resident. I agree with the resident's findings and plan as documented. SUBJECTIVE: Patient seen and examined in the ICU. Remains intubated, AC Mode of vent, 35% fiO2. No gross change in Neuro exam. No pressors. OBJECTIVE: Intake & Output 03/31/18 04/01/18 04/02/18 04/03/18 23:59 23:59 23:59 23:59 Intake Total 4508 2207.7 1676 1409.6 Output Total 2500 1200 1600 500 Balance 2008 1007.7 76 909.6 Weight 286 lb 9.615 oz 278 lb 14.156 oz 284 lb 9.868 oz 282 lb 13.649 oz Last Vital Signs Temp Pulse Resp BP Pulse Ox 99.1 F 76 26 H 163/78 99 04/03/18 13:42 04/03/18 13:42 04/03/18 13:42 04/03/18 13:42 04/03/18 10:00 Active Medications Artificial Tears (Artificial Tears) 1 drop OU BID PRN PRN Reason: DRY EYES Last Admin: 04/03/18 09:55 Dose: 1 drop Aspirin (Asa -) 81 mg PO DAILY [facility] Last Admin: 04/03/18 09:45 Dose: 81 mg Atorvastatin Calcium (Lipitor -) 20 mg NGT HS [facility] Last Admin: 04/02/18 22:11 Dose: 20 mg Chlorhexidine Gluconate (Peridex -) 15 ml MM BID [facility] Last Admin: 04/03/18 09:45 Dose: 15 ml Glycerin (Glycerin Suppository Adult -) 1 each RC DAILY PRN PRN Reason: CONSTIPATION Heparin Sodium (Porcine) (Heparin -) 5,000 unit SQ TID [facility] Last Admin: 04/03/18 13:44 Dose: 5,000 unit Piperacillin Sod/Tazobactam (Sod 4.5 gm/ Dextrose) 100 mls @ 200 mls/hr IVPB Q8H-IV [facility]; Protocol Last Admin: 04/03/18 09:55 Dose: 200 mls/hr Vancomycin HCl 1,250 mg/ (Dextrose) 250 mls @ 166.667 mls/hr IVPB Q12H [facility]; Protocol Last Admin: 04/03/18 13:31 Dose: 166.667 mls/hr Propofol (Diprivan -) 1,000,000 mcg in 100 mls @ 3.873 mls/hr IVPB TITR [facility]; Protocol Last Titration: 04/03/18 07:00 Dose: 8 mcg/kg/min, 6.197 mls/hr Insulin Aspart (Novolog Vial Sliding Scale -) 1 vial SQ Q6HPO [facility]; Protocol Last Admin: 04/03/18 11:39 Dose: 6 units Insulin Detemir (Levemir Vial) 30 units SQ HS [facility] Last Admin: 04/02/18 22:26 Dose: 30 units Lisinopril (Prinivil) 10 mg NGT DAILY [facility] Last Admin: 04/03/18 09:46 Dose: 10 mg Metoprolol Tartrate (Lopressor -) 50 mg NGT BID [facility] Last Admin: 04/03/18 09:44 Dose: 50 mg Mupirocin (Bactroban Ointment (For Decolonization) -) 1 applic NS BID [facility] Stop: 04/04/18 12:29 Last Admin: 04/03/18 09:44 Dose: 1 applic Ondansetron HCl (Zofran Injection) 4 mg IVPUSH Q6H PRN PRN Reason: NAUSEA AND/OR VOMITING Pantoprazole Sodium (Protonix Iv) 40 mg IVPUSH DAILY [facility] Last Admin: 04/03/18 09:54 Dose: 40 mg Tamsulosin HCl (Flomax -) 0.4 mg PO DAILY [facility] Last Admin: 04/03/18 10:35 Dose: Not Given Gen: intubated, poorly responsive Heart: RRR Lung: decreased breath sounds at the bases Abd: soft, nontender Ext: + edema Laboratory Results - last 24 hr 04/02/18 04/02/18 04/02/18 15:00 17:37 22:25 WBC RBC Hgb Hct MCV MCH MCHC RDW Plt Count MPV Platelet Comment Sodium Potassium Chloride Carbon Dioxide Anion Gap BUN Creatinine Creat Clearance w eGFR POC Glucometer 278.92950 284.53441 Random Glucose Calcium Phosphorus Magnesium Total Bilirubin AST ALT Alkaline Phosphatase Total Protein Albumin Urine Color Yellow Urine Appearance Cloudy Urine pH 5.0 Ur Specific [place] 1.022 Urine Protein 2+ H Urine Glucose (UA) 3+ H Urine Ketones Negative Urine Blood 3+ H Urine Nitrite Negative Urine Bilirubin Negative Urine Urobilinogen Negative Ur Leukocyte Esterase Negative Urine WBC (Auto) 35 Urine RBC (Auto) 168 Ur Epithelial Cells Rare Hyaline Casts 3 Urine Mucus Rare 04/03/18 04/03/18 04/03/18 05:30 05:30 06:15 WBC 14.6 H RBC 3.62 L Hgb 10.2 L Hct 31.3 L MCV 86.4 MCH 28.3 MCHC 32.7 RDW 16.4 H Plt Count 254 D MPV 8.5 Platelet Comment No clumping noted Sodium 138 Potassium 4.6 Chloride 104 Carbon Dioxide 25 Anion Gap 9 BUN 20 H Creatinine 0.7 Creat Clearance w eGFR > 60 POC Glucometer [phone] Random Glucose 251 H Calcium 7.9 L Phosphorus 2.8 Magnesium 2.2 Total Bilirubin 0.6 AST 97 H ALT 77 H Alkaline Phosphatase 232 H Total Protein 5.4 L Albumin 1.8 L Urine Color Urine Appearance Urine pH Ur Specific [place] Urine Protein Urine Glucose (UA) Urine Ketones Urine Blood Urine Nitrite Urine Bilirubin Urine Urobilinogen Ur Leukocyte Esterase Urine WBC (Auto) Urine RBC (Auto) Ur Epithelial Cells Hyaline Casts Urine Mucus ASSESSMENT AND PLAN: s/p PEA/VTach Cardiopulmonary Arrest Anoxic Encephalopathy / Brain Injury s/p Lumbar Laminectomy CAD s/p CABG +Troponins likely Demand Ischemia LV Systolic/Diastolic Dysfunction HTN DM Hypercholesterolemia CKD - ABX per ID - hold all sedation to assess mental status - enteral feeds - DVT/GI prophylaxis - Overall prognosis appears grave. Long discussion with NOK. Appears that the patient would not want a PEG/Trach and prolonged chronic care. - continue ICU monitoring Dr Hsu Critical care time spent in reviewing chart, evaluating patient and formulating plan 35 min
[2018-04-03] MEDS ORDERED: MORPHINE SULFATE 2 MG/ML VIAL IVPUSH PRN (15:27)
[2018-04-03] MEDS: PHENYTOIN 50 MG TAB.CHEW NGT SCH ×2 (15:33→22:55)
[2018-04-03] MEDS: PROPOFOL 1,000,000 MCG/100 ML VIAL IVPB SCH (16:10)
--- NOTE | 2018-04-03 16:14 | PN ---
Physical Exam: SUBJECTIVE: - Family meeting held for goals of care - Sisters signed DNR - Sedation holiday yesterday - Off sedation from approximately 8am to 4pm, then became hypertensive and tachypnic to 60's, appeared very uncomfortable. Restarted propofol. OBJECTIVE: Vital Signs Period Temp Pulse Resp BP Sys/Martinez Pulse Ox Last 24 Hr 98.9 F-99.8 F 67-88 20-28 143-187/70-81 97-100 General: Intubated. On sedation, no purposeful movements HEENT: Upward gaze. R eye deviated to right. Pupils sluggish but equal and reactive. RIJ in place. NTG with TF running. Cards: RRR, no murmur appreciated Pulm: Mechanically ventilated. Overbreathing vent to rate in low 20's. Abd: Soft, nondistended Ext: No LE edema. : Jimenez in place, draining freely Skin: Pale Neuro: Sedated. Opens eyes, no eye movements noted. No limb movement observed. Appropriate gag reflex. Laboratory Results - last 24 hr 04/02/18 04/02/18 04/02/18 15:00 17:37 22:25 WBC RBC Hgb Hct MCV MCH MCHC RDW Plt Count MPV Platelet Comment Sodium Potassium Chloride Carbon Dioxide Anion Gap BUN Creatinine Creat Clearance w eGFR POC Glucometer 278.37617 284.97149 Random Glucose Calcium Phosphorus Magnesium Total Bilirubin AST ALT Alkaline Phosphatase Total Protein Albumin Urine WBC (Auto) 35 Urine RBC (Auto) 168 Ur Epithelial Cells Rare Hyaline Casts 3 Urine Mucus Rare 04/03/18 04/03/18 04/03/18 05:30 05:30 06:15 WBC 14.6 H RBC 3.62 L Hgb 10.2 L Hct 31.3 L MCV 86.4 MCH 28.3 MCHC 32.7 RDW 16.4 H Plt Count 254 D MPV 8.5 Platelet Comment No clumping noted Sodium 138 Potassium 4.6 Chloride 104 Carbon Dioxide 25 Anion Gap 9 BUN 20 H Creatinine 0.7 Creat Clearance w eGFR > 60 POC Glucometer [phone] Random Glucose 251 H Calcium 7.9 L Phosphorus 2.8 Magnesium 2.2 Total Bilirubin 0.6 AST 97 H ALT 77 H Alkaline Phosphatase 232 H Total Protein 5.4 L Albumin 1.8 L Urine WBC (Auto) Urine RBC (Auto) Ur Epithelial Cells Hyaline Casts Urine Mucus Active Medications Generic Name Dose Route Start Last Admin Trade Name Freq PRN Reason Stop Dose Admin Artificial Tears 1 drop 03/28/18 07:59 04/03/18 09:55 Artificial Tears OU 1 drop BID PRN Administration DRY EYES Aspirin 81 mg 03/30/18 10:00 04/03/18 09:45 Asa - PO 81 mg DAILY [facility] Administration Atorvastatin Calcium 20 mg 03/30/18 22:00 04/02/18 22:11 Lipitor - NGT 20 mg HS [facility] Administration Chlorhexidine Gluconate 15 ml 03/30/18 12:30 04/03/18 09:45 Peridex - MM 15 ml BID [facility] Administration Glycerin 1 each 03/27/18 21:55 Glycerin Suppository Adult - RC DAILY PRN CONSTIPATION Heparin Sodium (Porcine) 5,000 unit 03/30/18 22:00 04/03/18 13:44 Heparin - SQ 5,000 unit TID [facility] Administration Piperacillin Sod/Tazobactam 100 mls @ 200 mls/hr 03/30/18 12:00 04/03/18 09: 55 Sod 4.5 gm/ Dextrose IVPB 200 mls/hr Q8H-IV [facility] Administration Protocol Vancomycin HCl 1,250 mg/ 250 mls @ 166.667 mls/hr 04/02/18 13:00 04/03/18 13: 31 Dextrose IVPB 166.667 mls/hr Q12H [facility] Administration Protocol Insulin Aspart 1 vial 03/30/18 15:45 04/03/18 11:39 Novolog Vial Sliding Scale - SQ 6 units Q6HPO [facility] Administration Protocol Insulin Detemir 30 units 03/27/18 22:00 04/02/18 22:26 Levemir Vial SQ 30 units HS [facility] Administration Lisinopril 10 mg 04/02/18 08:25 04/03/18 09:46 Prinivil NGT 10 mg DAILY [facility] Administration Metoprolol Tartrate 50 mg 04/02/18 08:25 04/03/18 09:44 Lopressor - NGT 50 mg BID [facility] Administration Morphine Sulfate 2 mg 04/03/18 15:27 Morphine Sulfate IVPUSH Q3H PRN PAIN LEVEL 6-10 Mupirocin 1 applic 03/30/18 12:30 04/03/18 09:44 Bactroban Ointment (For Decolonization) - NS 04/04/18 12:29 1 applic BID [facility] Administration Ondansetron HCl 4 mg 03/27/18 21:56 Zofran Injection IVPUSH Q6H PRN NAUSEA AND/OR VOMITING Pantoprazole Sodium 40 mg 03/28/18 10:30 04/03/18 09:54 Protonix Iv IVPUSH 40 mg DAILY [facility] Administration Phenytoin Sodium 100 mg 04/03/18 14:30 04/03/18 15:33 Dilantin Chewable Tablet - NGT 100 mg TID [facility] Administration Tamsulosin HCl 0.4 mg 03/28/18 10:00 04/03/18 10:35 Flomax - PO Not Given DAILY [facility] ASSESSMENT/PLAN: Marco Land is a 62yo man with a PMH of CAD s/p CABG, HTN, HLD, IDDM, chronic back pain due to spinal stnosis with rapid neurological decline. He presented yesterday for a planned spinal surgery and suffered a cardac arrest in the OR. ROSC was achieved after 26 minutes of CPR. He was transferred to the ICU and underwent cooling protocol. Since his arrest, Mr Land has had ongoing signs of anoxic brain injury and has not shown any purposeful activity. There is no indication that his neurologic status is improving. He remains in critical condition in the ICU. Neuro: - CT head on 03/29 and 03/31 with anoxic brain injury and infarct in the left occipital lobe - Off sedation as tolerated. Propofol as needed - PRN morphine 2mg Q3hr for discomfort - EEG without status epilepticus, but high seizure potential, encephalopathy. Dilantin 100mg TID per neurology. - Neuro following. CV: - s/p cardiac arrest. H/o CAD, CABG, HTN - Cardiology following - Cooling protocol completed - Echo completed, relatively normal, EF 55%, no right heart strain, no wall motion abnormalities - Elevated trops post-code, trended until decreasing. Peak 5.17 - Continue metoprolol, lisinopril 5mg daily, ASA 81 via NGT Pulm: - Mechanically ventilated - Current settings SIMV, 450cc, 35%, PEEP 5, rate 12. - Overbreathing vent - Weaning trials as tolerated - IS 10x per hour Heme: - Daily ASA. Continue to hold plavix per cards - Hgb downtrending, likely due to slight oozing into wound. - Transfuse as needed if hgb continues to decrease - Monitor daily CBC GI: - NGT in place - Tolerating tube feeds - Daily PPI while intubated and with NGT - LFTs downtrending Renal: - Jimenez in place, adequate UOP - MIAN resolved - Holding home flomax ID: - Leukocytosis continuing to downtrend, to 13.3 from high of 20.3. May be stress response to surgery, CPR, arrest but could also indicate infection or temperature disregulation secondary to arrest/hypoxia. Cultures NGTD. - Empiric vanc/zosyn - Fevers resolved. - Dr Álvarez following - Monitor morning CBC Endo: - h/o IDDM - Continue ISS Q6hr - Sugars have been well controlled in high 100's - 200 Musc: - Soft wrist restraints to prevent pulling ETT or lines - Monitoring back incision per nursing. No active bleeding - Dry dressing to be replaced/reinforced as needed for drainage. - Will contact Dr Rodriguez as needed if active bleeding is suspected PPx: - SQH, SCD's - PPI daily FEN: - TF at goal (promote, goal 1750cc daily) - SLIV. 10cc free water flush per hour - Replete lytes PRN Dispo: - Critically ill patient requiring ongoing ICU-level care - Family meeting today. Discussed prognosis, likely need for future trach/ PEG depending on patient and family wishes vs comfort care. Per discussion, sisters do not believe that the patient would want a trach or feeding tube, but they need more time to discuss and decide. - Palliative consulted and working with the family Code status: DNR order signed. Seen and discussed with Dr Hsu. China Randle PGY1 Visit type - Emergency Visit Emergency Visit: No - New Patient This patient is new to me today: No - Critical Care Critical Care patient: Yes Total Critical Care Time (in minutes): 45 Critical Care Statement: The care of this patient involved high complexity decision making to prevent further life threatening deterioration of the patient 's condition and/or to evaluate & treat vital organ system(s) failure or risk of failure.
--- NOTE | 2018-04-03 16:46 | PN ---
Progress Note (short form) - Note Progress Note: Patient seen this AM. On ventilator, eyes open, roving eye movements, but no response to voice or tactile stimuli. Light reflex intact. + doll's eyes. EEG pending No neuroimaging to review. Will f/u with you.
--- NOTE | 2018-04-03 17:45 | PN ---
Physical Exam: SUBJECTIVE: Patient seen and examined at bedside this morning. Patient is sedated and intubated. OBJECTIVE: Vital Signs Period Temp Pulse Resp BP Sys/Martinez Pulse Ox Last 24 Hr 98.9 F-99.6 F 67-107 20-35 123-192/52-81 97-100 GENERAL: The patient is intubated. minimally sedated. Eyes open. LUNGS: Coarse breath sounds. HEART: Regular rate and rhythm, S1, S2 without murmur, rub or gallop. ABDOMEN: Soft,obese, nondistended. EXTREMITIES: 2+ pulses, warm, well-perfused, no edema. Laboratory Results - last 24 hr 04/02/18 04/02/18 04/03/18 17:37 22:25 05:30 WBC 14.6 H RBC 3.62 L Hgb 10.2 L Hct 31.3 L MCV 86.4 MCH 28.3 MCHC 32.7 RDW 16.4 H Plt Count 254 D MPV 8.5 Platelet Comment No clumping noted Sodium Potassium Chloride Carbon Dioxide Anion Gap BUN Creatinine Creat Clearance w eGFR POC Glucometer [phone] Random Glucose Calcium Phosphorus Magnesium Total Bilirubin AST ALT Alkaline Phosphatase Total Protein Albumin 04/03/18 04/03/18 04/03/18 05:30 06:15 11:29 WBC RBC Hgb Hct MCV MCH MCHC RDW Plt Count MPV Platelet Comment Sodium 138 Potassium 4.6 Chloride 104 Carbon Dioxide 25 Anion Gap 9 BUN 20 H Creatinine 0.7 Creat Clearance w eGFR > 60 POC Glucometer [phone] Random Glucose 251 H Calcium 7.9 L Phosphorus 2.8 Magnesium 2.2 Total Bilirubin 0.6 AST 97 H ALT 77 H Alkaline Phosphatase 232 H Total Protein 5.4 L Albumin 1.8 L Active Medications Generic Name Dose Route Start Last Admin Trade Name Freq PRN Reason Stop Dose Admin Artificial Tears 1 drop 03/28/18 07:59 04/03/18 09:55 Artificial Tears OU 1 drop BID PRN Administration DRY EYES Aspirin 81 mg 03/30/18 10:00 04/03/18 09:45 Asa - PO 81 mg DAILY SYLVIA Administration Atorvastatin Calcium 20 mg 03/30/18 22:00 04/02/18 22:11 Lipitor - NGT 20 mg HS SY[facility]IA Administration Chlorhexidine Gluconate 15 ml 03/30/18 12:30 04/03/18 09:45 Peridex - MM 15 ml BID SY[facility]IA Administration Glycerin 1 each 03/27/18 21:55 Glycerin Suppository Adult - RC DAILY PRN CONSTIPATION Heparin Sodium (Porcine) 5,000 unit 03/30/18 22:00 04/03/18 13:44 Heparin - SQ 5,000 unit TID SY[facility]IA Administration Piperacillin Sod/Tazobactam 100 mls @ 200 mls/hr 03/30/18 12:00 04/03/18 17: 06 Sod 4.5 gm/ Dextrose IVPB 200 mls/hr Q8H-IV SY[facility]IA Administration Protocol Vancomycin HCl 1,250 mg/ 250 mls @ 166.667 mls/hr 04/02/18 13:00 04/03/18 13: 31 Dextrose IVPB 166.667 mls/hr Q12H SY[facility] Administration Protocol Propofol 1,000,000 mcg in 100 mls @ 3.849 mls/hr 04/03/18 16:15 04/03/18 17: 00 Diprivan - IVPB 20 mcg/kg/min TITR SY[facility]IA 15.396 mls/hr Titration Protocol 5 MCG/KG/MIN Insulin Aspart 1 vial 03/30/18 15:45 04/03/18 11:39 Novolog Vial Sliding Scale - SQ 6 units Q6HPO SY[facility]IA Administration Protocol Insulin Detemir 30 units 03/27/18 22:00 04/02/18 22:26 Levemir Vial SQ 30 units HS [facility] Administration Lisinopril 10 mg 04/02/18 08:25 04/03/18 09:46 Prinivil NGT 10 mg DAILY SY[facility] Administration Metoprolol Tartrate 50 mg 04/02/18 08:25 04/03/18 09:44 Lopressor - NGT 50 mg BID SY[facility]IA Administration Morphine Sulfate 2 mg 04/03/18 15:27 04/03/18 16:03 Morphine Sulfate IVPUSH 2 mg Q3H PRN Administration PAIN LEVEL 6-10 Mupirocin 1 applic 03/30/18 12:30 04/03/18 09:44 Bactroban Ointment (For Decolonization) - NS 04/04/18 12:29 1 applic BID SY[facility]IA Administration Ondansetron HCl 4 mg 03/27/18 21:56 Zofran Injection IVPUSH Q6H PRN NAUSEA AND/OR VOMITING Pantoprazole Sodium 40 mg 03/28/18 10:30 04/03/18 09:54 Protonix Iv IVPUSH 40 mg DAILY [facility] Administration Phenytoin Sodium 100 mg 04/03/18 14:30 04/03/18 15:33 Dilantin Chewable Tablet - NGT 100 mg TID SY[facility] Administration Tamsulosin HCl 0.4 mg 03/28/18 10:00 04/03/18 10:35 Flomax - PO Not Given DAILY [facility] Imaging Echo - LV systolic function is grossly normal. EF = 55%. Regional wall motion abnormalities cannot be excluded due to limited visualization. There is trace mitral regurgitation. There is trace tricuspid regurgitation. There is mild pulmonary hypertension. Head CT w/o contrast (03/31/18) - Evolving left posterior cerebral artery territory acute/subacute infarct. Otherwise, no gross mass lesion or intracranial hemorrhage are identified. There is no shift of the midline structures or evidence of inferior herniation. Poor visualization of the ye- white matter junction. There is also paucity of the cortical sulci the patient' s age. Cannot rule out the brain swelling/edema. The basal cisterns are not effaced. Head CT w/o contrast (03/29/18) - Slightly limited examination, as described above in particular evaluation of the inferior aspect of the posterior fossa. There is suggestion of faint low-attenuation density in the left occipital lobe , medially. An acute infarct cannot be excluded. No gross intracranial hemorrhage is seen. CXR (03/31/18) - Since 03/31/18 at 0506 hours, the endotracheal tube, right jugular line and mediastinal clips and sutures persist. Tubing projects over the chest. There is a large heart, unfolded aorta and prominent central markings. CXR (03/31/18) - Since the prior study of 03/30/18 at 1030 hours, there is slight increase in lung markings at the bases. The endotracheal tube, nasogastric tube and right jugular line persist. CXR (03/27/18) - Since the earlier study of 03/16/2018, the endotracheal tube has been inserted and the tip is well above the leroy. Right jugular line is been inserted and the tip is in the SVC's junction with the right atrium. There are sternal sutures with weak inspiration, increased central markings and prominent mediastinum. There may be some fluid at the right base. There is no sign of a pneumothorax. Microbiology 03/30/18 11:00 Back Gram Stain - Final 03/30/18 11:00 Back Wound Culture - Preliminary NO GROWTH OBTAINED AFTER 24 HOURS INCUBATION, REINCUBATED. 03/29/18 17:30 Urine - Urine Jimenez Urine Culture - Final NO GROWTH OBTAINED 03/29/18 17:30 Blood - Central Line Blood Culture - Preliminary NO GROWTH OBTAINED AFTER 24 HOURS, INCUBATION TO CONTINUE FOR 4 DAYS. 03/29/18 17:30 Blood - Central Line Blood Culture - Preliminary NO GROWTH OBTAINED AFTER 24 HOURS, INCUBATION TO CONTINUE FOR 4 DAYS. ASSESSMENT/PLAN: Patient is a 62 year old male with past medical history of chronic low back pain , CAD s/p CABG on plavix (held prior to surgery), HTN, HLD, DM, and BPH presented as outpatient for planned L1-S1 laminectomy and T12-S1 posterior instrumented spinal fusion. During the surgery, patient became pulseless, ACLS protocol initiated, and ROSC achieved. #ROSC s/p cardiopulmonary arrest -Hypothermia protocol finished. -Cardiology (Dr. Bush) consulted. Recommendations appreciated. -IV Metoprolol switch to PO Lopressor BID via NGT. -Lisinopril 5mg daily and ASA 81mg started through NGT -hold off on Plavix resumption -Statins unless contraindicated. -Echocardiography - EF 55%, no right heart strain, no wall motion abnormalities -Mechanically ventilated. Weaning trials as tolerated. #Anoxic brain injury -Neurology consulted. Recommendations appreciated. -Minimal propofol. Off sedation as tolerated. -Vecuronium drip and fentanyl drip discontinued. -RN reported eyes fluttering last night. -as per neuro, possible non-convulsive seizure activity. -Given loading dose of 1g fosphenytoin. Will start 100mg TID after loading. -Repeat head CT - evolving Left [employer] territory acute/subacute infarct. No gross mass lesion or ICH. No shift of midline structures or evidence of inferior herniation. Poor visualization of ye-white matter junction. There is paucity of cortical sulci. Cannot r/o brain swelling/edema. Basal cisterns are not effaced. -EEG - This EEG is abnormal. These findings are nonspecific and may be seen with diffuse encephalopathy of metabolic, degenerative or vascular origin. Localized sharp wave activity was noted in the left temporal area suggestive of epiliptiform disturbance. #Troponinemia -Troponin peaked at 5.17 and started to trend down to 3.12 -EKG done - no acute changes #Spinal Wound -Mid back incision with skin sutures but layered closure not completed due to cardiac arrest -Minimal bleeding into wound. -Monitor wound and daily CBC. #Leukocytosis: -Likely reactive -ID consulted. Recommendations appreciated. -Empiric Vancomycin and Zosyn day -will continue to monitor #CAD s/p CABG -Continue ASA -hold home medication Plavix -will monitor #Hypertension -Metoprolol resumed. -Will monitor BP #DM -Discontinued insulin drip -Sliding scale implemented q4h -BGM q4h #MIAN: resolved -likely 2/2 pre-renal from poor perfusion during the arrest -Jimenez catheter placed -urine lytes ordered. -will monitor renal function #FEN -IV NS @ 125 ml/hr -Tube feeding (high protein, low kcal) -Routine bmp monitoring, will replete lytes as needed. #Prophylaxis -TEDs, SCDs #Disposition -ICU for close monitoring -Family meeting held for [facility]. Sisters signed DNR. Visit type - Emergency Visit Emergency Visit: Yes ED Registration Date: 03/27/18 Care time: The patient presented to the Emergency Department on the above date and was hospitalized for further evaluation of their emergent condition. - New Patient This patient is new to me today: Yes Date on this admission: 04/03/18 - Critical Care Critical Care patient: Yes Total Critical Care Time (in minutes): 30 Critical Care Statement: The care of this patient involved high complexity decision making to prevent further life threatening deterioration of the patient 's condition and/or to evaluate & treat vital organ system(s) failure or risk of failure.
[2018-04-03] MEDS: ATORVASTATIN CA 20 MG TABLET (FP) NGT SCH (22:51)
[2018-04-03] MEDS: INSULIN (LEVEMIR) 100 UNITS/ML UNITS SQ SCH (22:51)
[2018-04-04] MEDS ORDERED: PIPERACILLIN/TAZOBACTAM 4.5 GM VIAL IVPB ONE (00:09)
[2018-04-04] MEDS ORDERED: HEMOQUE CONTROL SOLUTION ONE (01:35)
[2018-04-04] MEDS: VANCOMYCIN 1,250 MG in DEXTROSE 5%-WATER - 250 ML IVPB SCH ×2 (01:49→13:49)
[2018-04-04] MEDS: INSULIN SLIDING SCALE (NOVOLOG) 1 VIAL SQ SCH ×4 (01:49→18:40)
[2018-04-04] MEDS: PIPERACILLIN/TAZOB 4.5 GM 4.5 GM in DEXTROSE 5%-WATER 100 ML IVPB SCH ×3 (01:50→18:35)
[2018-04-04] MEDS: PHENYTOIN 50 MG TAB.CHEW NGT SCH ×3 (06:16→21:28)
[2018-04-04] MEDS: HEPARIN NA (PORCINE) 5,000 UNITS/ML 1ML VIAL SQ SCH ×3 (06:16→21:29)
--- NOTE | 2018-04-04 07:25 | PN ---
Progress Note (short form) - Note Progress Note: Chief Complaint: Events noted, notes reviewed, remains intubated, sinus rhythm is noted, DNR noted History of Present Illness: Seen and examined in [facility] ICU. Events noted, notes reviewed, remains intubated, sinus rhythm is noted, DNR noted Echocardiography dated 03/28/2018 revealed normal LV systolic function, with LVEF 0f 55%, walll motion cannot be assessed (upon study review there is abnormal septal motion consistent with prior open heart surgery), normal RV size and function and no significant valvular pathology CT scan of the head dated 03/29/2018 results noted Medications: Current Medications Artificial Tears (Artificial Tears) 1 drop OU BID PRN PRN Reason: DRY EYES Last Admin: 04/03/18 09:55 Dose: 1 drop Aspirin (Asa -) 81 mg PO DAILY SYLVIA Last Admin: 04/03/18 09:45 Dose: 81 mg Atorvastatin Calcium (Lipitor -) 20 mg NGT HS [facility] Last Admin: 04/03/18 22:51 Dose: 20 mg Chlorhexidine Gluconate (Peridex -) 15 ml MM BID SYLVIA Last Admin: 04/03/18 22:57 Dose: 15 ml Glycerin (Glycerin Suppository Adult -) 1 each RC DAILY PRN PRN Reason: CONSTIPATION Heparin Sodium (Porcine) (Heparin -) 5,000 unit SQ TID [facility] Last Admin: 04/04/18 06:16 Dose: 5,000 unit Piperacillin Sod/Tazobactam (Sod 4.5 gm/ Dextrose) 100 mls @ 200 mls/hr IVPB Q8H-IV [facility]IA; Protocol Last Admin: 04/04/18 01:50 Dose: 200 mls/hr Vancomycin HCl 1,250 mg/ (Dextrose) 250 mls @ 166.667 mls/hr IVPB Q12H [facility]; Protocol Last Admin: 04/04/18 01:49 Dose: 166.667 mls/hr Propofol (Diprivan -) 1,000,000 mcg in 100 mls @ 3.849 mls/hr IVPB TITR [facility]IA; Protocol Last Titration: 04/03/18 18:34 Dose: 20 mcg/kg/min, 15.396 mls/hr Insulin Aspart (Novolog Vial Sliding Scale -) 1 vial SQ Q6HPO [facility]; Protocol Last Admin: 04/04/18 06:28 Dose: 6 units Insulin Detemir (Levemir Vial) 30 units SQ HS [facility] Last Admin: 04/03/18 22:51 Dose: 30 units Lisinopril (Prinivil) 10 mg NGT DAILY [facility] Last Admin: 04/03/18 09:46 Dose: 10 mg Metoprolol Tartrate (Lopressor -) 50 mg NGT BID [facility] Last Admin: 04/03/18 22:51 Dose: 50 mg Morphine Sulfate (Morphine Sulfate) 2 mg IVPUSH Q3H PRN PRN Reason: PAIN LEVEL 6-10 Last Admin: 04/03/18 16:03 Dose: 2 mg Mupirocin (Bactroban Ointment (For Decolonization) -) 1 applic NS BID [facility] Stop: 04/04/18 12:29 Last Admin: 04/03/18 22:57 Dose: 1 applic Ondansetron HCl (Zofran Injection) 4 mg IVPUSH Q6H PRN PRN Reason: NAUSEA AND/OR VOMITING Pantoprazole Sodium (Protonix Iv) 40 mg IVPUSH DAILY [facility] Last Admin: 04/03/18 09:54 Dose: 40 mg Phenytoin Sodium (Dilantin Chewable Tablet -) 100 mg NGT TID [facility] Last Admin: 04/04/18 06:16 Dose: 100 mg Tamsulosin HCl (Flomax -) 0.4 mg PO DAILY [facility] Last Admin: 04/03/18 10:35 Dose: Not Given Review of Systems Unable to obtain Vital Signs: Last Vital Signs Temp Pulse Resp BP Pulse Ox 99.1 F 80 24 H 141/70 99 04/04/18 06:00 04/04/18 06:00 04/04/18 06:53 04/04/18 06:00 04/03/18 22:00 Intake & Output 04/01/18 04/02/18 04/03/18 04/04/18 23:59 23:59 23:59 23:59 Intake Total 2207.7 1676 3121.6 1654 Output Total 1200 1600 1800 400 Balance 1007.7 76 1321.6 1254 Weight 278 lb 14.156 oz 284 lb 9.868 oz 282 lb 13.649 oz 284 lb 13.396 oz Neck: Supple Negative JVD Respiratory: Bilateral Scattered Rhonchi Cardiovascular: S1 S2 Regular Rate and Rhythm Grade 1-2/6 ARMANI Gastrointestinal: Soft Benign Normal Bowel Sounds Ext: Trace Edema Chronic Venous Stasis Changes Labs: CBC, BMP 04/03/18 05:30 04/03/18 05:30 Hepatic Panel Total Bilirubin 0.6 mg/dL (0.2-1) 04/03/18 05:30 AST 97 U/L (15-37) H 04/03/18 05:30 ALT 77 U/L (13-61) H 04/03/18 05:30 Alkaline Phosphatase 232 U/L (45-117) H 04/03/18 05:30 Albumin 1.8 g/dl (3.4-5.0) L 04/03/18 05:30 Assessment/Plan ASSESSMENT: 1. Post cardiopulmonary arrest/pulse-less electrical activity, ventricular tachycardia post resuscitation currently intubated 2. Post operative day #8 post lumber laminectomy/L1-S1 laminectomy and T12-S1 posterior instrumentation 3. Anoxic brain injury, evidence of acute/subacute CVA on CT of the head 4. CAD post CABG angina pectoris with evidence of demand ischemic injury 5. LV diastolic dysfunction with class 0 NYHA classification LV failure 6. HTN 7. DM 8. Hypercholesterolemia 9. Chronic kidney disease, pre-renal azotemia 10. Anemia PLAN: 1. As outlined in prior notes maintain off of Amiodarone since LV function is normal and primary event was not ventricular tachycardia 2. Continue Lopressor hemodynamics permitting and titrate dosage as needed and as tolerated 3. Continue Lisinopril hemodynamics permitting and titrate dosage as needed and as tolerated 4. Continue ASA and defer Plavix resumption specially if additional intervention is planned 5. Continue Lipitor 6. Antibiotics as per ID service 7. Further plans regarding tracheotomy/PEG insertion as per the primary team Condition ольгаed Hazel Bush M.D.
--- NOTE | 2018-04-04 09:33 | PN ---
Progress Note, Physician History of Present Illness: Sedated on ventilator Temps down Afebrile Cultures no growth - Current Medication List Current Medications: Active Medications Artificial Tears (Artificial Tears) 1 drop OU BID PRN PRN Reason: DRY EYES Last Admin: 04/03/18 09:55 Dose: 1 drop Aspirin (Asa -) 81 mg PO DAILY [facility] Last Admin: 04/03/18 09:45 Dose: 81 mg Atorvastatin Calcium (Lipitor -) 20 mg NGT HS [facility] Last Admin: 04/03/18 22:51 Dose: 20 mg Chlorhexidine Gluconate (Peridex -) 15 ml MM BID [facility] Last Admin: 04/03/18 22:57 Dose: 15 ml Glycerin (Glycerin Suppository Adult -) 1 each RC DAILY PRN PRN Reason: CONSTIPATION Heparin Sodium (Porcine) (Heparin -) 5,000 unit SQ TID [facility] Last Admin: 04/04/18 06:16 Dose: 5,000 unit Piperacillin Sod/Tazobactam (Sod 4.5 gm/ Dextrose) 100 mls @ 200 mls/hr IVPB Q8H-IV [facility]; Protocol Last Admin: 04/04/18 01:50 Dose: 200 mls/hr Vancomycin HCl 1,250 mg/ (Dextrose) 250 mls @ 166.667 mls/hr IVPB Q12H [facility]; Protocol Last Admin: 04/04/18 01:49 Dose: 166.667 mls/hr Propofol (Diprivan -) 1,000,000 mcg in 100 mls @ 3.849 mls/hr IVPB TITR [facility]; Protocol Last Titration: 04/03/18 18:34 Dose: 20 mcg/kg/min, 15.396 mls/hr Insulin Aspart (Novolog Vial Sliding Scale -) 1 vial SQ Q6HPO [facility]; Protocol Last Admin: 04/04/18 06:28 Dose: 6 units Insulin Detemir (Levemir Vial) 30 units SQ HS [facility] Last Admin: 04/03/18 22:51 Dose: 30 units Lisinopril (Prinivil) 10 mg NGT DAILY [facility] Last Admin: 04/03/18 09:46 Dose: 10 mg Metoprolol Tartrate (Lopressor -) 50 mg NGT BID [facility] Last Admin: 04/03/18 22:51 Dose: 50 mg Morphine Sulfate (Morphine Sulfate) 2 mg IVPUSH Q3H PRN PRN Reason: PAIN LEVEL 6-10 Last Admin: 04/03/18 16:03 Dose: 2 mg Mupirocin (Bactroban Ointment (For Decolonization) -) 1 applic NS BID [facility] Stop: 04/04/18 12:29 Last Admin: 04/03/18 22:57 Dose: 1 applic Ondansetron HCl (Zofran Injection) 4 mg IVPUSH Q6H PRN PRN Reason: NAUSEA AND/OR VOMITING Pantoprazole Sodium (Protonix Iv) 40 mg IVPUSH DAILY [facility] Last Admin: 04/03/18 09:54 Dose: 40 mg Phenytoin Sodium (Dilantin Chewable Tablet -) 100 mg NGT TID [facility] Last Admin: 04/04/18 06:16 Dose: 100 mg Tamsulosin HCl (Flomax -) 0.4 mg PO DAILY [facility] Last Admin: 04/03/18 10:35 Dose: Not Given - Objective Vital Signs: Vital Signs Temperature 99.1 F 04/04/18 06:00 Pulse Rate 83 04/04/18 09:00 Respiratory Rate 21 H 04/04/18 08:45 Blood Pressure 134/73 04/04/18 08:00 O2 Sat by Pulse Oximetry (%) 99 04/04/18 09:00 Constitutional: Yes: No Distress Cardiovascular: Yes: Regular Rate and Rhythm, S1, S2 Respiratory: Yes: Mechanically Ventilated Gastrointestinal: Yes: Normal Bowel Sounds, Soft. No: Tenderness Edema: Yes Labs: INR, PTT INR 1.19 (0.83-1.09) H 03/27/18 23:30 Assessment/Plan S/P cardiopulmonary arrest Fever/ leukocytosis R/O sepsis Diabetes mellitus S/P laminectomy continue empiric zosyn/ vancomycin ventilatory/ hemodynamic support Prognosis guarded
[2018-04-04 09:37] LABS: HEMATOCRIT 31.8 % (35.4-49); HEMOGLOBIN 10.3 GM/dL (11.7-16.9); MCH 28.4 pg (25.7-33.7); MCHC 32.6 g/dl (32.0-35.9); MEAN CELL VOLUME 87.2 fl (80-96); MEAN PLT VOLUME 7.8 fl (7.5-11.1); PLATELET COUNT 324 K/MM3 (134-434); RBC 3.64 M/mm3 (4.00-5.60); RDW 16.3 % (11.9-15.9)
[2018-04-04 10:09] LABS: ANION GAP 6 MMOL/L (8-16); BLOOD UREA NITROGEN 21 mg/dL (7-18); CALCIUM 8.4 mg/dL (8.5-10.1); CHLORIDE 104 mmol/L (98-107); CO2 28 mmol/L (21-32); CREATININE 0.7 mg/dL (0.55-1.3); GLUCOSE,RANDOM 261 mg/dL (74-106); MAGNESIUM 2.1 mg/dL (1.8-2.4); PHOSPHOROUS 2.4 mg/dL (2.5-4.9); POTASSIUM 3.9 mmol/L (3.5-5.1); SODIUM 139 mmol/L (136-145)
[2018-04-04] MEDS: ASPIRIN 81 MG CHEWABLE TABLETS PO SCH (10:53)
[2018-04-04] MEDS: MUPIROCIN 2% TOPICAL OINTMENT FOR DECOLONIZATION NS SCH (10:53)
[2018-04-04] MEDS: PANTOPRAZOLE SODIUM 40 MG VIAL IVPUSH SCH (10:54)
[2018-04-04] MEDS: LISINOPRIL 5 MG TABLET (FP) NGT SCH (10:54)
[2018-04-04] MEDS: TAMSULOSIN HCL 0.4 MG CAP PO SCH (10:54)
[2018-04-04] MEDS: METOPROLOL TARTRATE 50 MG TABLET (FP) NGT SCH ×2 (10:54→21:29)
[2018-04-04] MEDS: CHLORHEXIDINE GLUCONATE 0.12% 15ML CUP MM SCH ×2 (10:54→21:30)
--- NOTE | 2018-04-04 11:39 | PN ---
Progress Note (short form) - Note Progress Note: Patient seen this AM. On ventilator,sedated on propofol, eyes closed, roving eye movements, but no response to voice or tactile stimuli. Light reflex intact. + doll's eyes. EEG pending, asked nurse to have Dr. Mullen to read. Clinically hard to prognosticate while sedated. Will f/u with you as sedation withdrawn.
[2018-04-04] MEDS ORDERED: PT OWN MED DRAWER 7, Y5N ONE ×3 (13:43→18:24)
[2018-04-04] MEDS: PROPOFOL 1,000,000 MCG/100 ML VIAL IVPB SCH ×3 (13:49→19:00)
--- NOTE | 2018-04-04 14:32 | PN ---
Teaching Attending Note Name of Resident: China Randle ATTENDING PHYSICIAN STATEMENT I saw and evaluated the patient. I reviewed the resident's note and discussed the case with the resident. I agree with the resident's findings and plan as documented. SUBJECTIVE: Patient seen and examined in the ICU. Remains intubated, AC Mode of vent, 35% FiO2. No gross change in Neuro exam. No pressors. OBJECTIVE: Intake & Output 04/01/18 04/02/18 04/03/18 04/04/18 23:59 23:59 23:59 23:59 Intake Total 2207.7 1676 3121.6 1654 Output Total 1200 1600 1800 400 Balance 1007.7 76 1321.6 1254 Weight 278 lb 14.156 oz 284 lb 9.868 oz 282 lb 13.649 oz 284 lb 13.396 oz Last Vital Signs Temp Pulse Resp BP Pulse Ox 100.6 F H 76 22 H 154/80 98 04/04/18 13:37 04/04/18 13:37 04/04/18 13:37 04/04/18 13:37 04/04/18 10:00 Active Medications Artificial Tears (Artificial Tears) 1 drop OU BID PRN PRN Reason: DRY EYES Last Admin: 04/03/18 09:55 Dose: 1 drop Aspirin (Asa -) 81 mg PO DAILY [facility] Last Admin: 04/04/18 10:53 Dose: 81 mg Atorvastatin Calcium (Lipitor -) 20 mg NGT HS [facility] Last Admin: 04/03/18 22:51 Dose: 20 mg Chlorhexidine Gluconate (Peridex -) 15 ml MM BID [facility] Last Admin: 04/04/18 10:54 Dose: 15 ml Glycerin (Glycerin Suppository Adult -) 1 each RC DAILY PRN PRN Reason: CONSTIPATION Heparin Sodium (Porcine) (Heparin -) 5,000 unit SQ TID [facility] Last Admin: 04/04/18 13:49 Dose: 5,000 unit Piperacillin Sod/Tazobactam (Sod 4.5 gm/ Dextrose) 100 mls @ 200 mls/hr IVPB Q8H-IV [facility]; Protocol Last Admin: 04/04/18 13:48 Dose: 200 mls/hr Vancomycin HCl 1,250 mg/ (Dextrose) 250 mls @ 166.667 mls/hr IVPB Q12H [facility]; Protocol Last Admin: 04/04/18 13:49 Dose: 166.667 mls/hr Propofol (Diprivan -) 1,000,000 mcg in 100 mls @ 3.849 mls/hr IVPB TITR [facility]; Protocol Last Admin: 04/04/18 13:49 Dose: 20 mcg/kg/min, 15.396 mls/hr Insulin Aspart (Novolog Vial Sliding Scale -) 1 vial SQ Q6HPO [facility]; Protocol Last Admin: 04/04/18 13:47 Dose: 8 units Insulin Detemir (Levemir Vial) 30 units SQ HS [facility] Last Admin: 04/03/18 22:51 Dose: 30 units Lisinopril (Prinivil) 10 mg NGT DAILY [facility] Last Admin: 04/04/18 10:54 Dose: 10 mg Metoprolol Tartrate (Lopressor -) 50 mg NGT BID [facility] Last Admin: 04/04/18 10:54 Dose: 50 mg Morphine Sulfate (Morphine Sulfate) 2 mg IVPUSH Q3H PRN PRN Reason: PAIN LEVEL 6-10 Last Admin: 04/03/18 16:03 Dose: 2 mg Ondansetron HCl (Zofran Injection) 4 mg IVPUSH Q6H PRN PRN Reason: NAUSEA AND/OR VOMITING Pantoprazole Sodium (Protonix Iv) 40 mg IVPUSH DAILY [facility] Last Admin: 04/04/18 10:54 Dose: 40 mg Phenytoin Sodium (Dilantin Chewable Tablet -) 100 mg NGT TID [facility] Last Admin: 04/04/18 13:49 Dose: 100 mg Tamsulosin HCl (Flomax -) 0.4 mg PO DAILY [facility] Last Admin: 04/04/18 10:54 Dose: Not Given Gen: intubated, poorly responsive on propofol Heart: RRR Lung: decreased breath sounds at the bases Abd: soft, nontender Ext: + edema Laboratory Results - last 24 hr 04/03/18 04/03/18 04/04/18 11:29 17:51 01:44 WBC RBC Hgb Hct MCV MCH MCHC RDW Plt Count MPV Sodium Potassium Chloride Carbon Dioxide Anion Gap BUN Creatinine Creat Clearance w eGFR POC Glucometer 292.92289 306.69439 232.75878 Random Glucose Calcium Phosphorus Magnesium 04/04/18 04/04/18 04/04/18 06:26 09:12 09:12 WBC 14.0 H RBC 3.64 L Hgb 10.3 L Hct 31.8 L MCV 87.2 MCH 28.4 MCHC 32.6 RDW 16.3 H Plt Count 324 D MPV 7.8 Sodium 139 Potassium 3.9 Chloride 104 Carbon Dioxide 28 Anion Gap 6 L BUN 21 H Creatinine 0.7 Creat Clearance w eGFR > 60 POC Glucometer [phone] Random Glucose 261 H Calcium 8.4 L Phosphorus 2.4 L Magnesium 2.1 04/04/18 12:41 WBC RBC Hgb Hct MCV MCH MCHC RDW Plt Count MPV Sodium Potassium Chloride Carbon Dioxide Anion Gap BUN Creatinine Creat Clearance w eGFR POC Glucometer [phone] Random Glucose Calcium Phosphorus Magnesium ASSESSMENT AND PLAN: s/p PEA/VTach Cardiopulmonary Arrest Anoxic Encephalopathy / Brain Injury s/p Lumbar Laminectomy CAD s/p CABG +Troponins likely Demand Ischemia LV Systolic/Diastolic Dysfunction HTN DM Hypercholesterolemia CKD - ABX per ID - hold all sedation to assess mental status - enteral feeds - DVT/GI prophylaxis - Overall prognosis appears grave. Long discussion with NOK. Appears that the patient would not want a PEG/Trach and prolonged chronic care. - continue ICU monitoring Dr Hsu Critical care time spent in reviewing chart, evaluating patient and formulating plan 35 min
--- NOTE | 2018-04-04 17:03 | PN ---
Teaching Attending Note Name of Resident: Isabella Velazquez ATTENDING PHYSICIAN STATEMENT I saw and evaluated the patient. I reviewed the resident's note and discussed the case with the resident. I agree with the resident's findings and plan as documented with exceptions below. SUBJECTIVE: Patient seen and examined. intubated, sedated, unable to do ROS. OBJECTIVE: Vital Signs Period Temp Pulse Resp BP Sys/Martinez Pulse Ox Last 24 Hr 99 F-100.6 F 74-93 17-28 103-156/50-80 97-99 Intake & Output 04/01/18 04/02/18 04/03/18 04/04/18 23:59 23:59 23:59 23:59 Intake Total 2207.7 1676 3121.6 1654 Output Total 1200 1600 1800 400 Balance 1007.7 76 1321.6 1254 Weight 278 lb 14.156 oz 284 lb 9.868 oz 282 lb 13.649 oz 284 lb 13.396 oz General: intubated, sedated, intermittently biting on the tube Chest: decreased effort, positive air entry, unable to appreciate rales or wheezing Abdomen:soft, distended, positive bowel sounds Extremities: no edema Active Medications Artificial Tears (Artificial Tears) 1 drop OU BID PRN PRN Reason: DRY EYES Last Admin: 04/03/18 09:55 Dose: 1 drop Aspirin (Asa -) 81 mg PO DAILY [facility] Last Admin: 04/04/18 10:53 Dose: 81 mg Atorvastatin Calcium (Lipitor -) 20 mg NGT HS [facility] Last Admin: 04/03/18 22:51 Dose: 20 mg Chlorhexidine Gluconate (Peridex -) 15 ml MM BID [facility] Last Admin: 04/04/18 10:54 Dose: 15 ml Glycerin (Glycerin Suppository Adult -) 1 each RC DAILY PRN PRN Reason: CONSTIPATION Heparin Sodium (Porcine) (Heparin -) 5,000 unit SQ TID [facility] Last Admin: 04/04/18 13:49 Dose: 5,000 unit Piperacillin Sod/Tazobactam (Sod 4.5 gm/ Dextrose) 100 mls @ 200 mls/hr IVPB Q8H-IV [facility]; Protocol Last Admin: 04/04/18 13:48 Dose: 200 mls/hr Vancomycin HCl 1,250 mg/ (Dextrose) 250 mls @ 166.667 mls/hr IVPB Q12H [facility]; Protocol Last Admin: 04/04/18 13:49 Dose: 166.667 mls/hr Propofol (Diprivan -) 1,000,000 mcg in 100 mls @ 3.849 mls/hr IVPB TITR [facility]; Protocol Last Admin: 04/04/18 13:49 Dose: 20 mcg/kg/min, 15.396 mls/hr Insulin Aspart (Novolog Vial Sliding Scale -) 1 vial SQ Q6HPO [facility]; Protocol Last Admin: 04/04/18 13:47 Dose: 8 units Insulin Detemir (Levemir Vial) 30 units SQ HS [facility] Last Admin: 04/03/18 22:51 Dose: 30 units Lisinopril (Prinivil) 10 mg NGT DAILY [facility] Last Admin: 04/04/18 10:54 Dose: 10 mg Metoprolol Tartrate (Lopressor -) 50 mg NGT BID [facility] Last Admin: 04/04/18 10:54 Dose: 50 mg Morphine Sulfate (Morphine Sulfate) 2 mg IVPUSH Q3H PRN PRN Reason: PAIN LEVEL 6-10 Last Admin: 04/03/18 16:03 Dose: 2 mg Ondansetron HCl (Zofran Injection) 4 mg IVPUSH Q6H PRN PRN Reason: NAUSEA AND/OR VOMITING Pantoprazole Sodium (Protonix Iv) 40 mg IVPUSH DAILY [facility] Last Admin: 04/04/18 10:54 Dose: 40 mg Phenytoin Sodium (Dilantin Chewable Tablet -) 100 mg NGT TID [facility] Last Admin: 04/04/18 13:49 Dose: 100 mg Tamsulosin HCl (Flomax -) 0.4 mg PO DAILY [facility] Last Admin: 04/04/18 10:54 Dose: Not Given Laboratory Results - last 24 hr 04/03/18 04/04/18 04/04/18 17:51 01:44 06:26 WBC RBC Hgb Hct MCV MCH MCHC RDW Plt Count MPV Sodium Potassium Chloride Carbon Dioxide Anion Gap BUN Creatinine Creat Clearance w eGFR POC Glucometer 306.93229 232.96624 294.15922 Random Glucose Calcium Phosphorus Magnesium 04/04/18 04/04/18 04/04/18 09:12 09:12 12:41 WBC 14.0 H RBC 3.64 L Hgb 10.3 L Hct 31.8 L MCV 87.2 MCH 28.4 MCHC 32.6 RDW 16.3 H Plt Count 324 D MPV 7.8 Sodium 139 Potassium 3.9 Chloride 104 Carbon Dioxide 28 Anion Gap 6 L BUN 21 H Creatinine 0.7 Creat Clearance w eGFR > 60 POC Glucometer [phone] Random Glucose 261 H Calcium 8.4 L Phosphorus 2.4 L Magnesium 2.1 Microbiology 04/02/18 15:10 Blood - Peripheral Venous Blood Culture - Preliminary NO GROWTH OBTAINED AFTER 48 HOURS, INCUBATION TO CONTINUE FOR 3 DAYS. 04/02/18 15:15 Blood - Peripheral Venous Blood Culture - Preliminary NO GROWTH OBTAINED AFTER 48 HOURS, INCUBATION TO CONTINUE FOR 3 DAYS. 04/02/18 16:15 Sputum - Endotrachea Suction/Ventilator Gram Stain - Final 04/02/18 16:15 Sputum - Endotrachea Suction/Ventilator Sputum Culture - Preliminary 04/02/18 15:00 Urine - Urine - Catheterized Urine Culture - Final NO GROWTH OBTAINED 03/29/18 17:30 Blood - Central Line Blood Culture - Final NO GROWTH AFTER 5 DAYS INCUBATION 03/29/18 17:30 Blood - Central Line Blood Culture - Final NO GROWTH AFTER 5 DAYS INCUBATION 03/31/18 15:30 Sputum - Endotrachea Suction/Ventilator Gram Stain - Final 03/31/18 15:30 Sputum - Endotrachea Suction/Ventilator Sputum Culture - Final NORMAL RESPIRATORY ZULLY 03/30/18 11:00 Back Gram Stain - Final 03/30/18 11:00 Back Wound Culture - Final NO AEROBIC OR ANAEROBIC GROWTH OBTAINED. 03/29/18 17:30 Urine - Urine Jimenez Urine Culture - Final NO GROWTH OBTAINED ASSESSMENT AND PLAN: 62yo M with PMH Severe stenosis L2-L3 and L3-L4, HTN, DM and CAD S/p CABG presented for scheduled laminectomy complicated by cardiac arrest. -s/p cardiac arrest -Acute toxic metabolic encephalopathy -Acute hypoxic respiratory failure -Fever -HTN -DM Plan: s/p hypothermia protocol. Vent management per ICU. Cardiology/neurology input appreciated. Follow up EEG Surgical management per Dr. Rodriguez. Venkata/melina day 6, Cultures neg so far. BP Improved, titrate meds as needed. BGM, ISS DVTPPX per spine MICU monitoring. Guarded prognosis. total critical care time spent 35 min.
--- NOTE | 2018-04-04 18:24 | PN ---
Physical Exam: SUBJECTIVE: No acute events overnight Family meeting yesterday. DNR signed Continued need for propofol; biting ETT when not sedated OBJECTIVE: Vital Signs Period Temp Pulse Resp BP Sys/Martinez Pulse Ox Last 24 Hr 99 F-100.6 F 74-89 17-28 103-156/52-80 97-99 General: Intubated and sedated HEENT: Upward gaze. R eye deviated to right. Pupils sluggish but equal and reactive. RIJ in place. NTG with TF running. Cards: RRR, no murmur appreciated Pulm: Mechanically ventilated. Overbreathing vent to rate in low 20's. Abd: Soft, nondistended Ext: No LE edema. : Jimenez in place, draining freely Neuro: Sedated. Opens eyes, no eye movements noted. No limb movement observed Laboratory Results - last 24 hr 04/03/18 04/04/18 04/04/18 17:51 01:44 06:26 WBC RBC Hgb Hct MCV MCH MCHC RDW Plt Count MPV Sodium Potassium Chloride Carbon Dioxide Anion Gap BUN Creatinine Creat Clearance w eGFR POC Glucometer 306.91190 232.61936 294.49373 Random Glucose Calcium Phosphorus Magnesium 04/04/18 04/04/18 04/04/18 09:12 09:12 12:41 WBC 14.0 H RBC 3.64 L Hgb 10.3 L Hct 31.8 L MCV 87.2 MCH 28.4 MCHC 32.6 RDW 16.3 H Plt Count 324 D MPV 7.8 Sodium 139 Potassium 3.9 Chloride 104 Carbon Dioxide 28 Anion Gap 6 L BUN 21 H Creatinine 0.7 Creat Clearance w eGFR > 60 POC Glucometer 340.03442 Random Glucose 261 H Calcium 8.4 L Phosphorus 2.4 L Magnesium 2.1 Active Medications Generic Name Dose Route Start Last Admin Trade Name Freq PRN Reason Stop Dose Admin Artificial Tears 1 drop 03/28/18 07:59 04/03/18 09:55 Artificial Tears OU 1 drop BID PRN Administration DRY EYES Aspirin 81 mg 03/30/18 10:00 04/04/18 10:53 Asa - PO 81 mg DAILY [facility] Administration Atorvastatin Calcium 20 mg 03/30/18 22:00 04/03/18 22:51 Lipitor - NGT 20 mg HS [facility] Administration Chlorhexidine Gluconate 15 ml 03/30/18 12:30 10/09/18 10:54 Peridex - MM 15 ml BID [facility] Administration Glycerin 1 each 03/27/18 21:55 Glycerin Suppository Adult - RC DAILY PRN CONSTIPATION Heparin Sodium (Porcine) 5,000 unit 03/30/18 22:00 04/04/18 13:49 Heparin - SQ 5,000 unit TID [facility] Administration Piperacillin Sod/Tazobactam 100 mls @ 200 mls/hr 03/30/18 12:00 04/04/18 13: 48 Sod 4.5 gm/ Dextrose IVPB 200 mls/hr Q8H-IV [facility] Administration Protocol Vancomycin HCl 1,250 mg/ 250 mls @ 166.667 mls/hr 04/02/18 13:00 04/04/18 13: 49 Dextrose IVPB 166.667 mls/hr Q12H [facility] Administration Protocol Propofol 1,000,000 mcg in 100 mls @ 3.849 mls/hr 04/03/18 16:15 04/04/18 13: 49 Diprivan - IVPB 20 mcg/kg/min TITR [facility] 15.396 mls/hr Administration Protocol 5 MCG/KG/MIN Insulin Aspart 1 vial 03/30/18 15:45 04/04/18 13:47 Novolog Vial Sliding Scale - SQ 8 units Q6HPO [facility] Administration Protocol Insulin Detemir 30 units 03/27/18 22:00 04/03/18 22:51 Levemir Vial SQ 30 units HS [facility] Administration Lisinopril 10 mg 04/02/18 08:25 04/04/18 10:54 Prinivil NGT 10 mg DAILY [facility] Administration Metoprolol Tartrate 50 mg 04/02/18 08:25 04/04/18 10:54 Lopressor - NGT 50 mg BID [facility] Administration Morphine Sulfate 2 mg 04/03/18 15:27 04/03/18 16:03 Morphine Sulfate IVPUSH 2 mg Q3H PRN Administration PAIN LEVEL 6-10 Ondansetron HCl 4 mg 03/27/18 21:56 Zofran Injection IVPUSH Q6H PRN NAUSEA AND/OR VOMITING Pantoprazole Sodium 40 mg 03/28/18 10:30 04/04/18 10:54 Protonix Iv IVPUSH 40 mg DAILY [facility] Administration Phenytoin Sodium 100 mg 04/03/18 14:30 04/04/18 13:49 Dilantin Chewable Tablet - NGT 100 mg TID [facility] Administration Tamsulosin HCl 0.4 mg 03/28/18 10:00 04/04/18 10:54 Flomax - PO Not Given DAILY [facility] ASSESSMENT/PLAN: Marco Land is a 62yo man with a PMH of CAD s/p CABG, HTN, HLD, IDDM, chronic back pain due to spinal stnosis with rapid neurological decline. He presented yesterday for a planned spinal surgery and suffered a cardac arrest in the OR. ROSC was achieved after 26 minutes of CPR. He was transferred to the ICU and underwent cooling protocol. Since his arrest, Mr Land has had ongoing signs of anoxic brain injury and has not shown any purposeful activity. There is no indication that his neurologic status is improving. He remains in critical condition in the ICU. Neuro: - CT head on 03/29 and 03/31 with anoxic brain injury and infarct in the left occipital lobe - Off sedation as tolerated. Propofol as needed - PRN morphine 2mg Q3hr for discomfort - EEG without status epilepticus, but high seizure potential, encephalopathy. Dilantin 100mg TID per neurology. - Neuro following. CV: - s/p cardiac arrest. H/o CAD, CABG, HTN - Cardiology following - Cooling protocol completed - Echo completed, relatively normal, EF 55%, no right heart strain, no wall motion abnormalities - Elevated trops post-code, trended until decreasing. Peak 5.17 - Continue metoprolol, lisinopril 5mg daily, ASA 81 via NGT Pulm: - Mechanically ventilated - Current settings SIMV, 450cc, 35%, PEEP 5, rate 12. - Overbreathing vent - Weaning trials as tolerated - IS 10x per hour Heme: - Daily ASA. Continue to hold plavix per cards - Hgb downtrending, likely due to slight oozing into wound. - Transfuse as needed if hgb continues to decrease - Monitor daily CBC GI: - NGT in place - Tolerating tube feeds - Daily PPI while intubated and with NGT - LFTs downtrending Renal: - Jimenez in place, adequate UOP - MIAN resolved - Holding home flomax ID: - Leukocytosis continuing to downtrend, to 13.3 from high of 20.3. May be stress response to surgery, CPR, arrest but could also indicate infection or temperature disregulation secondary to arrest/hypoxia. Cultures NGTD. - Empiric vanc/zosyn - Fevers resolved. - Dr Álvarez following - Monitor morning CBC Endo: - h/o IDDM - Continue ISS Q6hr - Sugars have been well controlled in high 100's - 200 Musc: - Soft wrist restraints to prevent pulling ETT or lines - Monitoring back incision per nursing. No active bleeding - Dry dressing to be replaced/reinforced as needed for drainage. - Will contact Dr Rodriguez as needed if active bleeding is suspected PPx: - SQH, SCD's - PPI daily FEN: - TF at goal (promote, goal 1750cc daily) - SLIV. 10cc free water flush per hour - Replete lytes PRN Dispo: - Critically ill patient requiring ongoing ICU-level care - Family deciding whether to pursue trach/PEG - Palliative consulted and working with the family Code status: DNR Seen and discussed with Dr Hsu. China Randle PGY1 Visit type - Emergency Visit Emergency Visit: No - New Patient This patient is new to me today: No - Critical Care Critical Care patient: Yes Total Critical Care Time (in minutes): 45 Critical Care Statement: The care of this patient involved high complexity decision making to prevent further life threatening deterioration of the patient 's condition and/or to evaluate & treat vital organ system(s) failure or risk of failure.
--- NOTE | 2018-04-04 19:23 | PN ---
Physical Exam: SUBJECTIVE: Patient seen and examined at bedside this morning. Patient remains sedated and intubated. OBJECTIVE: Vital Signs Period Temp Pulse Resp BP Sys/Martinez Pulse Ox Last 24 Hr 99 F-100.6 F 74-89 17-25 103-156/52-80 97-99 GENERAL: The patient is intubated. minimally sedated. Eyes open. LUNGS: Coarse breath sounds. HEART: Regular rate and rhythm, S1, S2 without murmur, rub or gallop. ABDOMEN: Soft,obese, nondistended. EXTREMITIES: 2+ pulses, warm, well-perfused, no edema. Laboratory Results - last 24 hr 04/03/18 04/04/18 04/04/18 17:51 01:44 06:26 WBC RBC Hgb Hct MCV MCH MCHC RDW Plt Count MPV Sodium Potassium Chloride Carbon Dioxide Anion Gap BUN Creatinine Creat Clearance w eGFR POC Glucometer 306.81104 232.53494 294.23384 Random Glucose Calcium Phosphorus Magnesium 04/04/18 04/04/18 04/04/18 09:12 09:12 12:41 WBC 14.0 H RBC 3.64 L Hgb 10.3 L Hct 31.8 L MCV 87.2 MCH 28.4 MCHC 32.6 RDW 16.3 H Plt Count 324 D MPV 7.8 Sodium 139 Potassium 3.9 Chloride 104 Carbon Dioxide 28 Anion Gap 6 L BUN 21 H Creatinine 0.7 Creat Clearance w eGFR > 60 POC Glucometer 340.16377 Random Glucose 261 H Calcium 8.4 L Phosphorus 2.4 L Magnesium 2.1 04/04/18 18:37 WBC RBC Hgb Hct MCV MCH MCHC RDW Plt Count MPV Sodium Potassium Chloride Carbon Dioxide Anion Gap BUN Creatinine Creat Clearance w eGFR POC Glucometer [phone] Random Glucose Calcium Phosphorus Magnesium Active Medications Generic Name Dose Route Start Last Admin Trade Name Freq PRN Reason Stop Dose Admin Artificial Tears 1 drop 03/28/18 07:59 04/03/18 09:55 Artificial Tears OU 1 drop BID PRN Administration DRY EYES Aspirin 81 mg 03/30/18 10:00 04/04/18 10:53 Asa - PO 81 mg DAILY [facility] Administration Atorvastatin Calcium 20 mg 03/30/18 22:00 04/03/18 22:51 Lipitor - NGT 20 mg HS [facility] Administration Chlorhexidine Gluconate 15 ml 03/30/18 12:30 04/04/18 10:54 Peridex - MM 15 ml BID [facility] Administration Glycerin 1 each 03/27/18 21:55 Glycerin Suppository Adult - RC DAILY PRN CONSTIPATION Heparin Sodium (Porcine) 5,000 unit 03/30/18 22:00 04/04/18 13:49 Heparin - SQ 5,000 unit TID [facility] Administration Piperacillin Sod/Tazobactam 100 mls @ 200 mls/hr 03/30/18 12:00 04/04/18 18: 35 Sod 4.5 gm/ Dextrose IVPB 200 mls/hr Q8H-IV [facility] Administration Protocol Vancomycin HCl 1,250 mg/ 250 mls @ 166.667 mls/hr 04/02/18 13:00 04/04/18 13: 49 Dextrose IVPB 166.667 mls/hr Q12H [facility] Administration Protocol Propofol 1,000,000 mcg in 100 mls @ 3.849 mls/hr 04/03/18 16:15 04/04/18 18: 40 Diprivan - IVPB 20 mcg/kg/min TITR [facility] 15.396 mls/hr Administration Protocol 5 MCG/KG/MIN Insulin Aspart 1 vial 03/30/18 15:45 04/04/18 18:40 Novolog Vial Sliding Scale - SQ 8 units Q6HPO [facility] Administration Protocol Insulin Detemir 30 units 03/27/18 22:00 04/03/18 22:51 Levemir Vial SQ 30 units HS [facility] Administration Lisinopril 10 mg 04/02/18 08:25 04/04/18 10:54 Prinivil NGT 10 mg DAILY [facility] Administration Metoprolol Tartrate 50 mg 04/02/18 08:25 04/04/18 10:54 Lopressor - NGT 50 mg BID [facility] Administration Morphine Sulfate 2 mg 04/03/18 15:27 04/03/18 16:03 Morphine Sulfate IVPUSH 2 mg Q3H PRN Administration PAIN LEVEL 6-10 Ondansetron HCl 4 mg 03/27/18 21:56 Zofran Injection IVPUSH Q6H PRN NAUSEA AND/OR VOMITING Pantoprazole Sodium 40 mg 03/28/18 10:30 04/04/18 10:54 Protonix Iv IVPUSH 40 mg DAILY [facility] Administration Phenytoin Sodium 100 mg 04/03/18 14:30 04/04/18 13:49 Dilantin Chewable Tablet - NGT 100 mg TID [facility] Administration Tamsulosin HCl 0.4 mg 03/28/18 10:00 04/04/18 10:54 Flomax - PO Not Given DAILY [facility] Imaging Echo - LV systolic function is grossly normal. EF = 55%. Regional wall motion abnormalities cannot be excluded due to limited visualization. There is trace mitral regurgitation. There is trace tricuspid regurgitation. There is mild pulmonary hypertension. Head CT w/o contrast (03/31/18) - Evolving left posterior cerebral artery territory acute/subacute infarct. Otherwise, no gross mass lesion or intracranial hemorrhage are identified. There is no shift of the midline structures or evidence of inferior herniation. Poor visualization of the ye- white matter junction. There is also paucity of the cortical sulci the patient' s age. Cannot rule out the brain swelling/edema. The basal cisterns are not effaced. Head CT w/o contrast (03/29/18) - Slightly limited examination, as described above in particular evaluation of the inferior aspect of the posterior fossa. There is suggestion of faint low-attenuation density in the left occipital lobe , medially. An acute infarct cannot be excluded. No gross intracranial hemorrhage is seen. CXR (03/31/18) - Since 03/31/18 at 0506 hours, the endotracheal tube, right jugular line and mediastinal clips and sutures persist. Tubing projects over the chest. There is a large heart, unfolded aorta and prominent central markings. CXR (03/31/18) - Since the prior study of 03/30/18 at 1030 hours, there is slight increase in lung markings at the bases. The endotracheal tube, nasogastric tube and right jugular line persist. CXR (03/27/18) - Since the earlier study of 03/16/2018, the endotracheal tube has been inserted and the tip is well above the leroy. Right jugular line is been inserted and the tip is in the SVC's junction with the right atrium. There are sternal sutures with weak inspiration, increased central markings and prominent mediastinum. There may be some fluid at the right base. There is no sign of a pneumothorax. Microbiology 03/30/18 11:00 Back Gram Stain - Final 03/30/18 11:00 Back Wound Culture - Preliminary NO GROWTH OBTAINED AFTER 24 HOURS INCUBATION, REINCUBATED. 03/29/18 17:30 Urine - Urine Jimenez Urine Culture - Final NO GROWTH OBTAINED 03/29/18 17:30 Blood - Central Line Blood Culture - Preliminary NO GROWTH OBTAINED AFTER 24 HOURS, INCUBATION TO CONTINUE FOR 4 DAYS. 03/29/18 17:30 Blood - Central Line Blood Culture - Preliminary NO GROWTH OBTAINED AFTER 24 HOURS, INCUBATION TO CONTINUE FOR 4 DAYS. ASSESSMENT/PLAN: Patient is a 62 year old male with past medical history of chronic low back pain , CAD s/p CABG on plavix (held prior to surgery), HTN, HLD, DM, and BPH presented as outpatient for planned L1-S1 laminectomy and T12-S1 posterior instrumented spinal fusion. During the surgery, patient became pulseless, ACLS protocol initiated, and ROSC achieved. #ROSC s/p cardiopulmonary arrest -Hypothermia protocol finished. -Cardiology (Dr. Bush) consulted. Recommendations appreciated. -IV Metoprolol switch to PO Lopressor BID via NGT. -Lisinopril 5mg daily and ASA 81mg started through NGT -hold off on Plavix resumption -Statins unless contraindicated. -Echocardiography - EF 55%, no right heart strain, no wall motion abnormalities -Mechanically ventilated.Management as per ICU #Anoxic brain injury -Neurology consulted. Recommendations appreciated. -Minimal propofol. Off sedation as tolerated. -Vecuronium drip and fentanyl drip discontinued. -Repeat head CT - evolving Left WELDING TESTER territory acute/subacute infarct. No gross mass lesion or ICH. No shift of midline structures or evidence of inferior herniation. Poor visualization of ye-white matter junction. There is paucity of cortical sulci. Cannot r/o brain swelling/edema. Basal cisterns are not effaced. -EEG - This EEG is abnormal. These findings are nonspecific and may be seen with diffuse encephalopathy of metabolic, degenerative or vascular origin. Localized sharp wave activity was noted in the left temporal area suggestive of epiliptiform disturbance. #Spinal Wound -Mid back incision with skin sutures but layered closure not completed due to cardiac arrest -Monitor wound and daily CBC. -Surgical management of wound as per Dr. Rodriguez. #Leukocytosis: -Likely reactive -ID consulted. Recommendations appreciated. -Empiric Vancomycin and Zosyn day 6 -will continue to monitor #CAD s/p CABG -Continue ASA -hold home medication Plavix -will monitor #Hypertension -Metoprolol resumed. -Will monitor BP #DM -Discontinued insulin drip -Sliding scale implemented q4h -BGM q4h #MIAN: resolved -likely 2/2 pre-renal from poor perfusion during the arrest -Jimenez catheter placed -urine lytes ordered. -will monitor renal function #FEN -IV NS @ 125 ml/hr -Tube feeding (high protein, low kcal) -Routine bmp monitoring, will replete lytes as needed. #Prophylaxis -TEDs, SCDs #Disposition -ICU for close monitoring -Family meeting held for [facility]. Sisters signed DNR. Visit type - Emergency Visit Emergency Visit: Yes ED Registration Date: 03/27/18 Care time: The patient presented to the Emergency Department on the above date and was hospitalized for further evaluation of their emergent condition. - New Patient This patient is new to me today: Yes Date on this admission: 04/04/18 - Critical Care Critical Care patient: Yes Total Critical Care Time (in minutes): 35 Critical Care Statement: The care of this patient involved high complexity decision making to prevent further life threatening deterioration of the patient 's condition and/or to evaluate & treat vital organ system(s) failure or risk of failure.
[2018-04-04] MEDS: ATORVASTATIN CA 20 MG TABLET (FP) NGT SCH (21:29)
[2018-04-04] MEDS: INSULIN (LEVEMIR) 100 UNITS/ML UNITS SQ SCH (21:30)
[2018-04-05] MEDS: VANCOMYCIN 1,250 MG in DEXTROSE 5%-WATER - 250 ML IVPB SCH ×2 (00:22→13:12)
[2018-04-05] MEDS: INSULIN SLIDING SCALE (NOVOLOG) 1 VIAL SQ SCH ×4 (00:23→17:51)
[2018-04-05] MEDS: PROPOFOL 1,000,000 MCG/100 ML VIAL IVPB SCH ×4 (00:24→22:40)
[2018-04-05] MEDS ORDERED: PIPERACILLIN/TAZOBACTAM 4.5 GM VIAL IVPB ONE (02:28)
[2018-04-05] MEDS ORDERED: DEXTROSE 5%-WATER 100 ML IVPB ONE (02:29)
[2018-04-05] MEDS: PIPERACILLIN/TAZOB 4.5 GM 4.5 GM in DEXTROSE 5%-WATER 100 ML IVPB SCH ×3 (02:31→17:46)
[2018-04-05] MEDS: PHENYTOIN 50 MG TAB.CHEW NGT SCH ×2 (06:23→13:04)
[2018-04-05] MEDS: HEPARIN NA (PORCINE) 5,000 UNITS/ML 1ML VIAL SQ SCH ×3 (06:23→22:45)
[2018-04-05 06:35] LABS: HEMATOCRIT 30.5 % (35.4-49); HEMOGLOBIN 10.1 GM/dL (11.7-16.9); MCH 28.6 pg (25.7-33.7); MEAN CELL VOLUME 86.5 fl (80-96); PLATELET COUNT 328 K/MM3 (134-434); RBC 3.52 M/mm3 (4.00-5.60); RDW 16.3 % (11.9-15.9); WHITE BLOOD COUNT 15.1 K/mm3 (4.0-10.0)
[2018-04-05 07:00] LABS: ANION GAP 6 MMOL/L (8-16); BLOOD UREA NITROGEN 20 mg/dL (7-18); CALCIUM 7.9 mg/dL (8.5-10.1); CHLORIDE 102 mmol/L (98-107); CO2 28 mmol/L (21-32); CREATININE 0.6 mg/dL (0.55-1.3); GLUCOSE,RANDOM 265 mg/dL (74-106); MAGNESIUM 2.1 mg/dL (1.8-2.4); PHOSPHOROUS 3.1 mg/dL (2.5-4.9); POTASSIUM 3.7 mmol/L (3.5-5.1); SODIUM 136 mmol/L (136-145)
--- NOTE | 2018-04-05 09:21 | PN ---
Progress Note, Physician History of Present Illness: Sedated on ventilator Afebrile Cultures no growth - Current Medication List Current Medications: Active Medications Artificial Tears (Artificial Tears) 1 drop OU BID PRN PRN Reason: DRY EYES Last Admin: 04/03/18 09:55 Dose: 1 drop Aspirin (Asa -) 81 mg PO DAILY [facility] Last Admin: 04/04/18 10:53 Dose: 81 mg Atorvastatin Calcium (Lipitor -) 20 mg NGT HS [facility] Last Admin: 04/04/18 21:29 Dose: 20 mg Chlorhexidine Gluconate (Peridex -) 15 ml MM BID [facility] Last Admin: 04/04/18 21:30 Dose: 15 ml Glycerin (Glycerin Suppository Adult -) 1 each RC DAILY PRN PRN Reason: CONSTIPATION Heparin Sodium (Porcine) (Heparin -) 5,000 unit SQ TID [facility] Last Admin: 04/05/18 06:23 Dose: 5,000 unit Piperacillin Sod/Tazobactam (Sod 4.5 gm/ Dextrose) 100 mls @ 200 mls/hr IVPB Q8H-IV [facility]; Protocol Last Admin: 04/05/18 02:31 Dose: 200 mls/hr Vancomycin HCl 1,250 mg/ (Dextrose) 250 mls @ 166.667 mls/hr IVPB Q12H [facility]; Protocol Last Admin: 04/05/18 00:22 Dose: 166.667 mls/hr Propofol (Diprivan -) 1,000,000 mcg in 100 mls @ 3.849 mls/hr IVPB TITR [facility]; Protocol Last Admin: 04/05/18 00:24 Dose: 30 mcg/kg/min, 23.094 mls/hr Insulin Aspart (Novolog Vial Sliding Scale -) 1 vial SQ Q6HPO [facility]; Protocol Last Admin: 04/05/18 06:27 Dose: 6 units Insulin Detemir (Levemir Vial) 30 units SQ HS [facility] Last Admin: 04/04/18 21:30 Dose: 30 units Lisinopril (Prinivil) 10 mg NGT DAILY [facility] Last Admin: 04/04/18 10:54 Dose: 10 mg Metoprolol Tartrate (Lopressor -) 50 mg NGT BID [facility] Last Admin: 04/04/18 21:29 Dose: 50 mg Morphine Sulfate (Morphine Sulfate) 2 mg IVPUSH Q3H PRN PRN Reason: PAIN LEVEL 6-10 Last Admin: 04/03/18 16:03 Dose: 2 mg Ondansetron HCl (Zofran Injection) 4 mg IVPUSH Q6H PRN PRN Reason: NAUSEA AND/OR VOMITING Pantoprazole Sodium (Protonix Iv) 40 mg IVPUSH DAILY [facility] Last Admin: 04/04/18 10:54 Dose: 40 mg Phenytoin Sodium (Dilantin Chewable Tablet -) 100 mg NGT TID [facility] Last Admin: 04/05/18 06:23 Dose: 100 mg Tamsulosin HCl (Flomax -) 0.4 mg PO DAILY [facility] Last Admin: 04/04/18 10:54 Dose: Not Given - Objective Vital Signs: Vital Signs Temperature 98.4 F 04/05/18 06:00 Pulse Rate 77 04/05/18 08:15 Respiratory Rate 18 04/05/18 08:15 Blood Pressure 142/72 04/05/18 06:00 O2 Sat by Pulse Oximetry (%) 100 04/05/18 08:15 Constitutional: Yes: No Distress Eyes: Yes: Conjunctiva Clear Cardiovascular: Yes: Regular Rate and Rhythm, S1, S2 Respiratory: Yes: Mechanically Ventilated Gastrointestinal: Yes: Normal Bowel Sounds, Soft. No: Tenderness Edema: Yes Edema: LLE: 2+, RLE: 2+ Labs: CBC, BMP 04/05/18 05:30 04/05/18 05:30 INR, PTT INR 1.19 (0.83-1.09) H 03/27/18 23:30 Assessment/Plan S/P cardiopulmonary arrest Fever/ leukocytosis R/O sepsis Diabetes mellitus S/P laminectomy continue empiric zosyn/ vancomycin ventilatory/ hemodynamic support Prognosis guarded
[2018-04-05] MEDS ORDERED: PT OWN MED DRAWER 7, Y5N ONE ×5 (10:09→21:55)
[2018-04-05] MEDS: METOPROLOL TARTRATE 50 MG TABLET (FP) NGT SCH ×2 (10:14→22:45)
[2018-04-05] MEDS: ASPIRIN 81 MG CHEWABLE TABLETS PO SCH (10:15)
[2018-04-05] MEDS: TAMSULOSIN HCL 0.4 MG CAP PO SCH (10:15)
[2018-04-05] MEDS: PANTOPRAZOLE SODIUM 40 MG VIAL IVPUSH SCH (10:15)
[2018-04-05] MEDS: LISINOPRIL 5 MG TABLET (FP) NGT SCH (10:15)
[2018-04-05] MEDS: CHLORHEXIDINE GLUCONATE 0.12% 15ML CUP MM SCH ×2 (10:15→22:00)
--- NOTE | 2018-04-05 13:36 | PN ---
Teaching Attending Note Name of Resident: China Randle ATTENDING PHYSICIAN STATEMENT I saw and evaluated the patient. I reviewed the resident's note and discussed the case with the resident. I agree with the resident's findings and plan as documented. SUBJECTIVE: Pt seen and examined in the ICU. Remains intubated, poorly responsive off sedation. Low grade fever yesterday. OBJECTIVE: Vital Signs Period Temp Pulse Resp BP Sys/Martinez Pulse Ox Last 24 Hr 98.2 F-100.6 F 73-87 17-22 117-170/59-80 98-100 Intake & Output 04/02/18 04/03/18 04/04/18 04/05/18 23:59 23:59 23:59 23:59 Intake Total 1676 3121.6 1654 Output Total 1600 1800 400 Balance 76 1321.6 1254 Weight 129.1 kg 128.3 kg 129.2 kg 129.1 kg Gen: intubated, poorly responsive Heart: RRR Lung: scattered rhonchi Abd: soft, nontender Ext: + edema CBC, BMP 04/05/18 05:30 04/05/18 05:30 Active Medications Artificial Tears (Artificial Tears) 1 drop OU BID PRN PRN Reason: DRY EYES Last Admin: 04/03/18 09:55 Dose: 1 drop Aspirin (Asa -) 81 mg PO DAILY [facility] Last Admin: 04/05/18 10:15 Dose: 81 mg Atorvastatin Calcium (Lipitor -) 20 mg NGT HS [facility] Last Admin: 04/04/18 21:29 Dose: 20 mg Chlorhexidine Gluconate (Peridex -) 15 ml MM BID [facility] Last Admin: 04/05/18 10:15 Dose: 15 ml Glycerin (Glycerin Suppository Adult -) 1 each RC DAILY PRN PRN Reason: CONSTIPATION Heparin Sodium (Porcine) (Heparin -) 5,000 unit SQ TID [facility] Last Admin: 04/05/18 13:12 Dose: 5,000 unit Piperacillin Sod/Tazobactam (Sod 4.5 gm/ Dextrose) 100 mls @ 200 mls/hr IVPB Q8H-IV [facility]; Protocol Last Admin: 04/05/18 12:56 Dose: 200 mls/hr Vancomycin HCl 1,250 mg/ (Dextrose) 250 mls @ 166.667 mls/hr IVPB Q12H [facility]; Protocol Last Admin: 04/05/18 13:12 Dose: 166.667 mls/hr Propofol (Diprivan -) 1,000,000 mcg in 100 mls @ 3.849 mls/hr IVPB TITR [facility]; Protocol Last Titration: 04/05/18 09:38 Dose: 0 mcg/kg/min, 0 mls/hr Insulin Aspart (Novolog Vial Sliding Scale -) 1 vial SQ Q6HPO [facility]; Protocol Last Admin: 04/05/18 13:06 Dose: 8 units Insulin Detemir (Levemir Vial) 30 units SQ HS [facility] Last Admin: 04/04/18 21:30 Dose: 30 units Lisinopril (Prinivil) 10 mg NGT DAILY [facility] Last Admin: 04/05/18 10:15 Dose: 10 mg Metoprolol Tartrate (Lopressor -) 50 mg NGT BID [facility] Last Admin: 04/05/18 10:14 Dose: 50 mg Morphine Sulfate (Morphine Sulfate) 2 mg IVPUSH Q3H PRN PRN Reason: PAIN LEVEL 6-10 Last Admin: 04/03/18 16:03 Dose: 2 mg Ondansetron HCl (Zofran Injection) 4 mg IVPUSH Q6H PRN PRN Reason: NAUSEA AND/OR VOMITING Pantoprazole Sodium (Protonix Iv) 40 mg IVPUSH DAILY [facility] Last Admin: 04/05/18 10:15 Dose: 40 mg Phenytoin Sodium (Dilantin Chewable Tablet -) 100 mg NGT TID [facility] Last Admin: 04/05/18 13:04 Dose: 100 mg Tamsulosin HCl (Flomax -) 0.4 mg PO DAILY [facility] Last Admin: 04/05/18 10:15 Dose: Not Given ASSESSMENT AND PLAN: s/p PEA/VTach Cardiopulmonary Arrest Anoxic Encephalopathy s/p Lumbar Laminectomy CAD s/p CABG +Troponins likely Demand Ischemia LV Systolic/Diastolic Dysfunction HTN DM Hypercholesterolemia CKD - continue empiric antibiotics - f/u cultures - ASA, beta blockade, statin - hold all sedation to assess mental status - enteral feeds - DVT/GI prophylaxis - continue ICU monitoring - will likely need trach/PEG critical care time spent in reviewing chart, evaluating patient and formulating plan 35 min
--- NOTE | 2018-04-05 15:22 | PN ---
Teaching Attending Note Name of Resident: Isabella Velazquez ATTENDING PHYSICIAN STATEMENT I saw and evaluated the patient. I reviewed the resident's note and discussed the case with the resident. I agree with the resident's findings and plan as documented with exceptions below. SUBJECTIVE: Patient seen and examined, unreponsive off sedation. OBJECTIVE: Vital Signs Period Temp Pulse Resp BP Sys/Martinez Pulse Ox Last 24 Hr 98.2 F-100.0 F 73-87 17-22 117-170/59-77 98-100 Intake & Output 04/02/18 04/03/18 04/04/18 04/05/18 23:59 23:59 23:59 23:59 Intake Total 1676 3121.6 1654 Output Total 1600 1800 400 Balance 76 1321.6 1254 Weight 284 lb 9.868 oz 282 lb 13.649 oz 284 lb 13.396 oz 284 lb 9.868 oz General: intubated sedated, unreponsve Chest: limited exam, positive air entry, no rales or wheezing Abdomen:soft, obese Extremities: no edema noted Active Medications Artificial Tears (Artificial Tears) 1 drop OU BID PRN PRN Reason: DRY EYES Last Admin: 04/03/18 09:55 Dose: 1 drop Aspirin (Asa -) 81 mg PO DAILY [facility] Last Admin: 04/05/18 10:15 Dose: 81 mg Atorvastatin Calcium (Lipitor -) 20 mg NGT HS [facility] Last Admin: 04/04/18 21:29 Dose: 20 mg Chlorhexidine Gluconate (Peridex -) 15 ml MM BID [facility] Last Admin: 04/05/18 10:15 Dose: 15 ml Glycerin (Glycerin Suppository Adult -) 1 each RC DAILY PRN PRN Reason: CONSTIPATION Heparin Sodium (Porcine) (Heparin -) 5,000 unit SQ TID [facility] Last Admin: 04/05/18 13:12 Dose: 5,000 unit Piperacillin Sod/Tazobactam (Sod 4.5 gm/ Dextrose) 100 mls @ 200 mls/hr IVPB Q8H-IV [facility]; Protocol Last Admin: 04/05/18 12:56 Dose: 200 mls/hr Vancomycin HCl 1,250 mg/ (Dextrose) 250 mls @ 166.667 mls/hr IVPB Q12H [facility]; Protocol Last Admin: 04/05/18 13:12 Dose: 166.667 mls/hr Propofol (Diprivan -) 1,000,000 mcg in 100 mls @ 3.849 mls/hr IVPB TITR [facility]; Protocol Last Titration: 04/05/18 09:38 Dose: 0 mcg/kg/min, 0 mls/hr Insulin Aspart (Novolog Vial Sliding Scale -) 1 vial SQ Q6HPO [facility]; Protocol Last Admin: 04/05/18 13:06 Dose: 8 units Insulin Detemir (Levemir Vial) 30 units SQ HS [facility] Last Admin: 04/04/18 21:30 Dose: 30 units Lisinopril (Prinivil) 10 mg NGT DAILY [facility] Last Admin: 04/05/18 10:15 Dose: 10 mg Metoprolol Tartrate (Lopressor -) 50 mg NGT BID [facility] Last Admin: 04/05/18 10:14 Dose: 50 mg Morphine Sulfate (Morphine Sulfate) 2 mg IVPUSH Q3H PRN PRN Reason: PAIN LEVEL 6-10 Last Admin: 04/03/18 16:03 Dose: 2 mg Ondansetron HCl (Zofran Injection) 4 mg IVPUSH Q6H PRN PRN Reason: NAUSEA AND/OR VOMITING Pantoprazole Sodium (Protonix Iv) 40 mg IVPUSH DAILY [facility] Last Admin: 04/05/18 10:15 Dose: 40 mg Phenytoin Sodium (Dilantin Chewable Tablet -) 100 mg NGT TID [facility] Last Admin: 04/05/18 13:04 Dose: 100 mg Tamsulosin HCl (Flomax -) 0.4 mg PO DAILY [facility] Last Admin: 04/05/18 10:15 Dose: Not Given Laboratory Results - last 24 hr 04/04/18 04/05/18 04/05/18 18:37 00:22 05:30 WBC 15.1 H RBC 3.52 L Hgb 10.1 L Hct 30.5 L MCV 86.5 MCH 28.6 MCHC 33.0 RDW 16.3 H Plt Count 328 MPV 8.0 Sodium Potassium Chloride Carbon Dioxide Anion Gap BUN Creatinine Creat Clearance w eGFR POC Glucometer 332.25868 271.44273 Random Glucose Calcium Phosphorus Magnesium 04/05/18 04/05/18 05:30 06:26 WBC RBC Hgb Hct MCV MCH MCHC RDW Plt Count MPV Sodium 136 Potassium 3.7 Chloride 102 Carbon Dioxide 28 Anion Gap 6 L BUN 20 H Creatinine 0.6 Creat Clearance w eGFR > 60 POC Glucometer 297.24378 Random Glucose 265 H Calcium 7.9 L Phosphorus 3.1 Magnesium 2.1 Microbiology 04/02/18 15:10 Blood - Peripheral Venous Blood Culture - Preliminary NO GROWTH OBTAINED AFTER 72 HOURS, INCUBATION TO CONTINUE FOR 2 DAYS. 04/02/18 15:15 Blood - Peripheral Venous Blood Culture - Preliminary NO GROWTH OBTAINED AFTER 72 HOURS, INCUBATION TO CONTINUE FOR 2 DAYS. 04/02/18 16:15 Sputum - Endotrachea Suction/Ventilator Gram Stain - Final 04/02/18 16:15 Sputum - Endotrachea Suction/Ventilator Sputum Culture - Final 04/02/18 15:00 Urine - Urine - Catheterized Urine Culture - Final NO GROWTH OBTAINED 03/29/18 17:30 Blood - Central Line Blood Culture - Final NO GROWTH AFTER 5 DAYS INCUBATION 03/29/18 17:30 Blood - Central Line Blood Culture - Final NO GROWTH AFTER 5 DAYS INCUBATION 03/31/18 15:30 Sputum - Endotrachea Suction/Ventilator Gram Stain - Final 03/31/18 15:30 Sputum - Endotrachea Suction/Ventilator Sputum Culture - Final NORMAL RESPIRATORY ZULLY 03/30/18 11:00 Back Gram Stain - Final 03/30/18 11:00 Back Wound Culture - Final NO AEROBIC OR ANAEROBIC GROWTH OBTAINED. 03/29/18 17:30 Urine - Urine Jimenez Urine Culture - Final NO GROWTH OBTAINED ASSESSMENT AND PLAN: 62yo M with PMH Severe stenosis L2-L3 and L3-L4, HTN, DM and CAD S/p CABG presented for scheduled laminectomy complicated by cardiac arrest. -s/p cardiac arrest -Acute toxic metabolic encephalopathy -Acute hypoxic respiratory failure -Fever -HTN -DM Plan: s/p hypothermia protocol. Vent management per ICU. Off sedation, unreponsive. Cardiology/neurology input appreciated. Follow up EEG Surgical management per Dr. Rodriguez. Venkata/melina day 7, Cultures neg so far. Abx per ID. BP Improved, titrate meds as needed. BGM, ISS DVTPPX per spine MICU monitoring. Guarded prognosis. total critical care time spent 35 min.
--- NOTE | 2018-04-05 15:33 | PN ---
Physical Exam: SUBJECTIVE: No acute events OBJECTIVE: Vital Signs Period Temp Pulse Resp BP Sys/Martinez Pulse Ox Last 24 Hr 98.2 F-100.0 F 73-87 17-22 117-170/59-77 98-100 General: Intubated and sedated HEENT: Upward gaze. R eye deviated to right. Pupils sluggish but equal and reactive. RIJ in place. NTG with TF running. Cards: RRR, no murmur appreciated Pulm: Mechanically ventilated. Overbreathing vent to rate in low 20's. Abd: Soft, nondistended Ext: No LE edema. : Jimenez in place, draining freely Neuro: Sedated. Opens eyes, no eye movements noted. No limb movement observed Laboratory Results - last 24 hr 04/04/18 04/05/18 04/05/18 18:37 00:22 05:30 WBC 15.1 H RBC 3.52 L Hgb 10.1 L Hct 30.5 L MCV 86.5 MCH 28.6 MCHC 33.0 RDW 16.3 H Plt Count 328 MPV 8.0 Sodium Potassium Chloride Carbon Dioxide Anion Gap BUN Creatinine Creat Clearance w eGFR POC Glucometer 332.72795 271.49522 Random Glucose Calcium Phosphorus Magnesium 04/05/18 04/05/18 05:30 06:26 WBC RBC Hgb Hct MCV MCH MCHC RDW Plt Count MPV Sodium 136 Potassium 3.7 Chloride 102 Carbon Dioxide 28 Anion Gap 6 L BUN 20 H Creatinine 0.6 Creat Clearance w eGFR > 60 POC Glucometer 297.90020 Random Glucose 265 H Calcium 7.9 L Phosphorus 3.1 Magnesium 2.1 Active Medications Generic Name Dose Route Start Last Admin Trade Name Freq PRN Reason Stop Dose Admin Artificial Tears 1 drop 03/28/18 07:59 04/03/18 09:55 Artificial Tears OU 1 drop BID PRN Administration DRY EYES Aspirin 81 mg 03/30/18 10:00 04/05/18 10:15 Asa - PO 81 mg DAILY [facility] Administration Atorvastatin Calcium 20 mg 03/30/18 22:00 04/04/18 21:29 Lipitor - NGT 20 mg HS [facility] Administration Chlorhexidine Gluconate 15 ml 03/30/18 12:30 04/05/18 10:15 Peridex - MM 15 ml BID [facility] Administration Glycerin 1 each 03/27/18 21:55 Glycerin Suppository Adult - RC DAILY PRN CONSTIPATION Heparin Sodium (Porcine) 5,000 unit 03/30/18 22:00 04/05/18 13:12 Heparin - SQ 5,000 unit TID [facility] Administration Piperacillin Sod/Tazobactam 100 mls @ 200 mls/hr 03/30/18 12:00 04/05/18 12: 56 Sod 4.5 gm/ Dextrose IVPB 200 mls/hr Q8H-IV [facility] Administration Protocol Vancomycin HCl 1,250 mg/ 250 mls @ 166.667 mls/hr 04/02/18 13:00 04/05/18 13: 12 Dextrose IVPB 166.667 mls/hr Q12H [facility] Administration Protocol Propofol 1,000,000 mcg in 100 mls @ 3.849 mls/hr 04/03/18 16:15 04/05/18 09: 38 Diprivan - IVPB 0 mcg/kg/min TITR [facility] 0 mls/hr Titration Protocol 5 MCG/KG/MIN Insulin Aspart 1 vial 03/30/18 15:45 04/05/18 13:06 Novolog Vial Sliding Scale - SQ 8 units Q6HPO [facility] Administration Protocol Insulin Detemir 30 units 03/27/18 22:00 04/04/18 21:30 Levemir Vial SQ 30 units HS [facility] Administration Lisinopril 10 mg 04/02/18 08:25 04/05/18 10:15 Prinivil NGT 10 mg DAILY [facility] Administration Metoprolol Tartrate 50 mg 04/02/18 08:25 04/05/18 10:14 Lopressor - NGT 50 mg BID [facility] Administration Morphine Sulfate 2 mg 04/03/18 15:27 04/03/18 16:03 Morphine Sulfate IVPUSH 2 mg Q3H PRN Administration PAIN LEVEL 6-10 Ondansetron HCl 4 mg 03/27/18 21:56 Zofran Injection IVPUSH Q6H PRN NAUSEA AND/OR VOMITING Pantoprazole Sodium 40 mg 03/28/18 10:30 04/05/18 10:15 Protonix Iv IVPUSH 40 mg DAILY [facility] Administration Phenytoin Sodium 100 mg 04/03/18 14:30 04/05/18 13:04 Dilantin Chewable Tablet - NGT 100 mg TID [facility] Administration Tamsulosin HCl 0.4 mg 03/28/18 10:00 10/10/18 10:15 Flomax - PO Not Given DAILY [facility] ASSESSMENT/PLAN: Marco Land is a 62yo man with a PMH of CAD s/p CABG, HTN, HLD, IDDM, chronic back pain due to spinal stnosis with rapid neurological decline. He underwent cardiac arrest during a planned surgery on 03/27. ROSC was achieved after 26 minutes of CPR. He was transferred to the ICU and underwent cooling protocol. Since his arrest, Mr Land has had ongoing signs of anoxic brain injury and has not shown any purposeful activity. There is no indication that his neurologic status is improving. He remains in critical condition in the ICU. Neuro: - CT head on 03/29 and 03/31 with anoxic brain injury and infarct in the left occipital lobe - Off sedation as tolerated. Propofol as needed - PRN morphine 2mg Q3hr for discomfort - EEG without status epilepticus, but high seizure potential, encephalopathy. Dilantin 100mg TID per neurology. - Neuro following. CV: - s/p cardiac arrest. H/o CAD, CABG, HTN - Cardiology following - Cooling protocol completed - Echo completed, relatively normal, EF 55%, no right heart strain, no wall motion abnormalities - Elevated trops post-code, trended until decreasing. Peak 5.17 - Continue metoprolol, lisinopril 5mg daily, ASA 81 via NGT Pulm: - Mechanically ventilated - Current settings SIMV, 450cc, 35%, PEEP 5, rate 12. - Overbreathing vent - Weaning trials as tolerated - IS 10x per hour Heme: - Daily ASA. Continue to hold plavix per cards - Hgb downtrending, likely due to slight oozing into wound. - Transfuse as needed if hgb continues to decrease - Monitor daily CBC GI: - NGT in place - Tolerating tube feeds - Daily PPI while intubated and with NGT - LFTs downtrending Renal: - Jimenez in place, adequate UOP - MIAN resolved - Holding home flomax ID: - Leukocytosis continuing to downtrend, to 13.3 from high of 20.3. May be stress response to surgery, CPR, arrest but could also indicate infection or temperature disregulation secondary to arrest/hypoxia. Cultures NGTD. - Empiric vanc/zosyn - Fevers resolved. - Dr Álvarez following - Monitor morning CBC Endo: - h/o IDDM - Continue ISS Q6hr - Sugars have been well controlled in high 100's - 200 Musc: - Soft wrist restraints to prevent pulling ETT or lines - Monitoring back incision per nursing. No active bleeding - Dry dressing to be replaced/reinforced as needed for drainage. - Will contact Dr Rodriguez as needed if active bleeding is suspected PPx: - SQH, SCD's - PPI daily FEN: - TF at goal (promote, goal 1750cc daily) - SLIV. 10cc free water flush per hour - Replete lytes PRN Dispo: - Critically ill patient requiring ongoing ICU-level care - Family deciding whether to pursue trach/PEG - Palliative consulted and working with the family Code status: DNR Discussed with Dr Bright and ICU team. China Randle PGY1 Visit type - Emergency Visit Emergency Visit: No - New Patient This patient is new to me today: No - Critical Care Critical Care patient: Yes Total Critical Care Time (in minutes): 45 Critical Care Statement: The care of this patient involved high complexity decision making to prevent further life threatening deterioration of the patient 's condition and/or to evaluate & treat vital organ system(s) failure or risk of failure.
--- NOTE | 2018-04-05 15:58 | PN ---
Physical Exam: SUBJECTIVE: Patient seen and examined at bedside. Patient sedated and intubated. OBJECTIVE: Vital Signs Period Temp Pulse Resp BP Sys/Martinez Pulse Ox Last 24 Hr 98.2 F-100.0 F 73-87 17-22 117-170/59-77 98-100 GENERAL: The patient is intubated. minimally sedated. Eyes closed. LUNGS: Coarse breath sounds. HEART: Regular rate and rhythm, S1, S2 without murmur, rub or gallop. ABDOMEN: Soft,obese, nondistended. EXTREMITIES: 2+ pulses, warm, well-perfused, no edema. Laboratory Results - last 24 hr 04/04/18 04/05/18 04/05/18 18:37 00:22 05:30 WBC 15.1 H RBC 3.52 L Hgb 10.1 L Hct 30.5 L MCV 86.5 MCH 28.6 MCHC 33.0 RDW 16.3 H Plt Count 328 MPV 8.0 Sodium Potassium Chloride Carbon Dioxide Anion Gap BUN Creatinine Creat Clearance w eGFR POC Glucometer [phone] Random Glucose Calcium Phosphorus Magnesium 04/05/18 04/05/18 05:30 06:26 WBC RBC Hgb Hct MCV MCH MCHC RDW Plt Count MPV Sodium 136 Potassium 3.7 Chloride 102 Carbon Dioxide 28 Anion Gap 6 L BUN 20 H Creatinine 0.6 Creat Clearance w eGFR > 60 POC Glucometer 297.39032 Random Glucose 265 H Calcium 7.9 L Phosphorus 3.1 Magnesium 2.1 Active Medications Generic Name Dose Route Start Last Admin Trade Name Freq PRN Reason Stop Dose Admin Artificial Tears 1 drop 03/28/18 07:59 04/03/18 09:55 Artificial Tears OU 1 drop BID PRN Administration DRY EYES Aspirin 81 mg 03/30/18 10:00 04/05/18 10:15 Asa - PO 81 mg DAILY SYLVIA Administration Atorvastatin Calcium 20 mg 03/30/18 22:00 04/04/18 21:29 Lipitor - NGT 20 mg HS SYLVIA Administration Chlorhexidine Gluconate 15 ml 03/30/18 12:30 04/05/18 10:15 Peridex - MM 15 ml BID SYLVIA Administration Glycerin 1 each 03/27/18 21:55 Glycerin Suppository Adult - RC DAILY PRN CONSTIPATION Heparin Sodium (Porcine) 5,000 unit 03/30/18 22:00 04/05/18 13:12 Heparin - SQ 5,000 unit TID SYLVIA Administration Piperacillin Sod/Tazobactam 100 mls @ 200 mls/hr 03/30/18 12:00 04/05/18 12: 56 Sod 4.5 gm/ Dextrose IVPB 200 mls/hr Q8H-IV SYLVIA Administration Protocol Vancomycin HCl 1,250 mg/ 250 mls @ 166.667 mls/hr 04/02/18 13:00 04/05/18 13: 12 Dextrose IVPB 166.667 mls/hr Q12H SYLVIA Administration Protocol Propofol 1,000,000 mcg in 100 mls @ 3.849 mls/hr 04/03/18 16:15 04/05/18 15: 38 Diprivan - IVPB 30 mcg/kg/min TITR SYLVIA 23.094 mls/hr Administration Protocol 5 MCG/KG/MIN Insulin Aspart 1 vial 03/30/18 15:45 04/05/18 13:06 Novolog Vial Sliding Scale - SQ 8 units Q6HPO SYLVIA Administration Protocol Insulin Detemir 30 units 03/27/18 22:00 04/04/18 21:30 Levemir Vial SQ 30 units HS SYLVIA Administration Lisinopril 10 mg 04/02/18 08:25 04/05/18 10:15 Prinivil NGT 10 mg DAILY SYLVIA Administration Metoprolol Tartrate 50 mg 04/02/18 08:25 04/05/18 10:14 Lopressor - NGT 50 mg BID SYLVIA Administration Morphine Sulfate 2 mg 04/03/18 15:27 04/03/18 16:03 Morphine Sulfate IVPUSH 2 mg Q3H PRN Administration PAIN LEVEL 6-10 Ondansetron HCl 4 mg 03/27/18 21:56 Zofran Injection IVPUSH Q6H PRN NAUSEA AND/OR VOMITING Pantoprazole Sodium 40 mg 03/28/18 10:30 04/05/18 10:15 Protonix Iv IVPUSH 40 mg DAILY SYLVIA Administration Phenytoin Sodium 100 mg 04/03/18 14:30 04/05/18 13:04 Dilantin Chewable Tablet - NGT 100 mg TID SYLVIA Administration Tamsulosin HCl 0.4 mg 03/28/18 10:00 04/05/18 10:15 Flomax - PO Not Given DAILY [facility] Imaging Echo - LV systolic function is grossly normal. EF = 55%. Regional wall motion abnormalities cannot be excluded due to limited visualization. There is trace mitral regurgitation. There is trace tricuspid regurgitation. There is mild pulmonary hypertension. Head CT w/o contrast (03/31/18) - Evolving left posterior cerebral artery territory acute/subacute infarct. Otherwise, no gross mass lesion or intracranial hemorrhage are identified. There is no shift of the midline structures or evidence of inferior herniation. Poor visualization of the ye- white matter junction. There is also paucity of the cortical sulci the patient' s age. Cannot rule out the brain swelling/edema. The basal cisterns are not effaced. Head CT w/o contrast (03/29/18) - Slightly limited examination, as described above in particular evaluation of the inferior aspect of the posterior fossa. There is suggestion of faint low-attenuation density in the left occipital lobe , medially. An acute infarct cannot be excluded. No gross intracranial hemorrhage is seen. CXR (03/31/18) - Since 03/31/18 at 0506 hours, the endotracheal tube, right jugular line and mediastinal clips and sutures persist. Tubing projects over the chest. There is a large heart, unfolded aorta and prominent central markings. CXR (03/31/18) - Since the prior study of 03/30/18 at 1030 hours, there is slight increase in lung markings at the bases. The endotracheal tube, nasogastric tube and right jugular line persist. CXR (03/27/18) - Since the earlier study of 03/16/2018, the endotracheal tube has been inserted and the tip is well above the leroy. Right jugular line is been inserted and the tip is in the SVC's junction with the right atrium. There are sternal sutures with weak inspiration, increased central markings and prominent mediastinum. There may be some fluid at the right base. There is no sign of a pneumothorax. Microbiology 03/30/18 11:00 Back Gram Stain - Final 03/30/18 11:00 Back Wound Culture - Preliminary NO GROWTH OBTAINED AFTER 24 HOURS INCUBATION, REINCUBATED. 03/29/18 17:30 Urine - Urine Jimenez Urine Culture - Final NO GROWTH OBTAINED 03/29/18 17:30 Blood - Central Line Blood Culture - Preliminary NO GROWTH OBTAINED AFTER 24 HOURS, INCUBATION TO CONTINUE FOR 4 DAYS. 03/29/18 17:30 Blood - Central Line Blood Culture - Preliminary NO GROWTH OBTAINED AFTER 24 HOURS, INCUBATION TO CONTINUE FOR 4 DAYS. ASSESSMENT/PLAN: Patient is a 62 year old male with past medical history of chronic low back pain , CAD s/p CABG on plavix (held prior to surgery), HTN, HLD, DM, and BPH presented as outpatient for planned L1-S1 laminectomy and T12-S1 posterior instrumented spinal fusion. During the surgery, patient became pulseless, ACLS protocol initiated, and ROSC achieved. #ROSC s/p cardiopulmonary arrest -Hypothermia protocol finished. -Cardiology (Dr. Bush) consulted. Recommendations appreciated. -IV Metoprolol switch to PO Lopressor BID via NGT. -Lisinopril 5mg daily and ASA 81mg started through NGT -hold off on Plavix resumption -Statins unless contraindicated. -Echocardiography - EF 55%, no right heart strain, no wall motion abnormalities -Mechanically ventilated.Management as per ICU #Anoxic brain injury -Neurology consulted. Recommendations appreciated. -Minimal propofol. Off sedation as tolerated. -Vecuronium drip and fentanyl drip discontinued. -Repeat head CT - evolving Left [employer] territory acute/subacute infarct. No gross mass lesion or ICH. No shift of midline structures or evidence of inferior herniation. Poor visualization of ye-white matter junction. There is paucity of cortical sulci. Cannot r/o brain swelling/edema. Basal cisterns are not effaced. -EEG - This EEG is abnormal. These findings are nonspecific and may be seen with diffuse encephalopathy of metabolic, degenerative or vascular origin. Localized sharp wave activity was noted in the left temporal area suggestive of epiliptiform disturbance. #Spinal Wound -Mid back incision with skin sutures but layered closure not completed due to cardiac arrest -Monitor wound and daily CBC. -Surgical management of wound as per Dr. Rodriguez. #Leukocytosis: -Likely reactive -ID consulted. Recommendations appreciated. -Empiric Vancomycin and Zosyn day 6 -will continue to monitor #CAD s/p CABG -Continue ASA -hold home medication Plavix -will monitor #Hypertension -Metoprolol resumed. -Will monitor BP #DM -Discontinued insulin drip -Sliding scale implemented q4h -BGM q4h #MIAN: resolved -likely 2/2 pre-renal from poor perfusion during the arrest -Jimenez catheter placed -urine lytes ordered. -will monitor renal function #FEN -IV NS @ 125 ml/hr -Tube feeding (high protein, low kcal) -Routine bmp monitoring, will replete lytes as needed. #Prophylaxis -TEDs, SCDs #Disposition -ICU for close monitoring -Family meeting held for [facility]. Sisters signed DNR. Visit type - Emergency Visit Emergency Visit: Yes ED Registration Date: 03/27/18 Care time: The patient presented to the Emergency Department on the above date and was hospitalized for further evaluation of their emergent condition. - New Patient This patient is new to me today: Yes Date on this admission: 04/06/18 - Critical Care Critical Care patient: Yes Total Critical Care Time (in minutes): 40 Critical Care Statement: The care of this patient involved high complexity decision making to prevent further life threatening deterioration of the patient 's condition and/or to evaluate & treat vital organ system(s) failure or risk of failure.
--- NOTE | 2018-04-05 16:32 | PN ---
Progress Note, Physician History of Present Illness: Remains on mechanical ventilation off sedation, no arrhythmias on telemetry, hemodynamics stable, fevers improved. - Current Medication List Current Medications: Active Medications Artificial Tears (Artificial Tears) 1 drop OU BID PRN PRN Reason: DRY EYES Last Admin: 04/03/18 09:55 Dose: 1 drop Aspirin (Asa -) 81 mg PO DAILY [facility] Last Admin: 04/05/18 10:15 Dose: 81 mg Atorvastatin Calcium (Lipitor -) 20 mg NGT HS [facility] Last Admin: 04/04/18 21:29 Dose: 20 mg Chlorhexidine Gluconate (Peridex -) 15 ml MM BID [facility] Last Admin: 04/05/18 10:15 Dose: 15 ml Glycerin (Glycerin Suppository Adult -) 1 each RC DAILY PRN PRN Reason: CONSTIPATION Heparin Sodium (Porcine) (Heparin -) 5,000 unit SQ TID [facility] Last Admin: 04/05/18 13:12 Dose: 5,000 unit Piperacillin Sod/Tazobactam (Sod 4.5 gm/ Dextrose) 100 mls @ 200 mls/hr IVPB Q8H-IV SYLVIA; Protocol Last Admin: 04/05/18 12:56 Dose: 200 mls/hr Vancomycin HCl 1,250 mg/ (Dextrose) 250 mls @ 166.667 mls/hr IVPB Q12H SYLVIA; Protocol Last Admin: 04/05/18 13:12 Dose: 166.667 mls/hr Propofol (Diprivan -) 1,000,000 mcg in 100 mls @ 3.849 mls/hr IVPB TITR SYLVIA; Protocol Last Admin: 04/05/18 15:38 Dose: 30 mcg/kg/min, 23.094 mls/hr Insulin Aspart (Novolog Vial Sliding Scale -) 1 vial SQ Q6HPO [facility]; Protocol Last Admin: 04/05/18 13:06 Dose: 8 units Insulin Detemir (Levemir Vial) 30 units SQ HS [facility] Last Admin: 04/04/18 21:30 Dose: 30 units Lisinopril (Prinivil) 10 mg NGT DAILY [facility] Last Admin: 04/05/18 10:15 Dose: 10 mg Metoprolol Tartrate (Lopressor -) 50 mg NGT BID [facility] Last Admin: 04/05/18 10:14 Dose: 50 mg Morphine Sulfate (Morphine Sulfate) 2 mg IVPUSH Q3H PRN PRN Reason: PAIN LEVEL 6-10 Last Admin: 04/03/18 16:03 Dose: 2 mg Ondansetron HCl (Zofran Injection) 4 mg IVPUSH Q6H PRN PRN Reason: NAUSEA AND/OR VOMITING Pantoprazole Sodium (Protonix Iv) 40 mg IVPUSH DAILY [facility] Last Admin: 04/05/18 10:15 Dose: 40 mg Phenytoin Sodium (Dilantin Chewable Tablet -) 100 mg NGT TID [facility] Last Admin: 04/05/18 13:04 Dose: 100 mg Tamsulosin HCl (Flomax -) 0.4 mg PO DAILY [facility] Last Admin: 04/05/18 10:15 Dose: Not Given - Objective Vital Signs: Vital Signs Temperature 100.1 F H 04/05/18 14:00 Pulse Rate 88 04/05/18 14:00 Respiratory Rate 22 H 04/05/18 14:00 Blood Pressure 155/87 04/05/18 14:00 O2 Sat by Pulse Oximetry (%) 100 04/05/18 09:39 Cardiovascular: Yes: Regular Rate and Rhythm Respiratory: Yes: Intubated, Mechanically Ventilated, Rhonchi Gastrointestinal: Yes: Normal Bowel Sounds, Soft, Abdomen, Obese Edema: No Labs: CBC, BMP 04/05/18 05:30 04/05/18 05:30 INR, PTT INR 1.19 (0.83-1.09) H 03/27/18 23:30 Problem List - Problems (1) Status post lumbar laminectomy Code(s): Z98.890 - OTHER SPECIFIED POSTPROCEDURAL STATES (2) CAD (coronary artery disease) Code(s): I25.10 - ATHSCL HEART DISEASE OF [place] CORONARY ARTERY W/O ANG PCTRS Qualifiers: Coronary Disease-Associated Artery/Lesion type: [place] artery [place] vs. transplanted heart: [place] heart Associated angina: without angina Qualified Code(s): I25.10 - Atherosclerotic heart disease of [place] coronary artery without angina pectoris (3) Cardiac arrest Code(s): I46.9 - CARDIAC ARREST, CAUSE UNSPECIFIED (4) Encephalopathy acute Code(s): G93.40 - ENCEPHALOPATHY, UNSPECIFIED (5) HLD (hyperlipidemia) Code(s): E78.5 - HYPERLIPIDEMIA, UNSPECIFIED Qualifiers: Hyperlipidemia type: pure hypercholesterolemia Qualified Code(s): E78.00 - Pure hypercholesterolemia, unspecified; E78.0 - Pure hypercholesterolemia (6) HTN (hypertension) Code(s): I10 - ESSENTIAL (PRIMARY) HYPERTENSION Qualifiers: Hypertension type: essential hypertension Qualified Code(s): I10 - Essential (primary) hypertension (7) Hx of CABG Code(s): Z95.1 - PRESENCE OF AORTOCORONARY BYPASS GRAFT (8) Insulin dependent diabetes mellitus Code(s): E11.9 - TYPE 2 DIABETES MELLITUS WITHOUT COMPLICATIONS; Z79.4 - MCFP (CURRENT) USE OF INSULIN (9) Demand ischemia Code(s): I24.8 - OTHER FORMS OF ACUTE ISCHEMIC HEART DISEASE Assessment/Plan 03/28/2018 Echocardiography report noted, normal LV systolic function, with LVEF 0f 55%, walll motion cannot be assessed (upon study review there is abnormal septal motion consistent with prior open heart surgery) no significant valvular pathology, normal RV size and fxn. 03/29/2018 CT suspicious for ischemia left posterior circulation ASSESSMENT: 1. Post cardiopulmonary arrest/pulse-less electrical activity, ventricular tachycardia post resuscitation currently ventilator-dependent 2. Post operative day #9 post L1-S1 laminectomy and T12-S1 posterior instrumentation 3. Anoxic brain injury with evidence of acute/subacute CVA on CT of the head 4. CAD post CABG angina pectoris with demand ischemia - troponins have peaked 5. LV diastolic dysfunction with class 0 NYHA classification LV failure 6. HTN 7. DM 8. hypercholesterolemia PLAN: 1. Continue Lopressor 50 bid, lisinopril 10 qd, ASA 81 qd, and Lipitor 20 qd 2. Hold off on Plavix resumption as additional intervention is planned 3. Neurology evaluation appreciated, EEG shows left temporal seizures and diffuse encephelopathy, seizure prophylaxis 4. Hold sedation as tolerated 5. Empiric abx coverage per ID for open wound and fever, f/u C&S 6. DVT/GI prophylaxis 7. Will likely need trach/PEG
[2018-04-05] MEDS ORDERED: INSULIN (NOVOLOG) ASPART 100 UNITS/ML 10ML VIAL ONE (16:52)
--- NOTE | 2018-04-05 19:16 | PN ---
Progress Note (short form) - Note Progress Note: On ventilator,sedated on propofolTapering), eyes closed, no roving eye movements tonight, but no response to voice or tactile stimuli. Light reflex intact. + doll's eyes. EEG pending-have requested Dr. Palafox for reading, he will call me later tonight. Clinically hard to prognosticate while sedated. Will f/u with you as sedation withdrawn. Thank you, Bill Yarbrough MD
[2018-04-05] MEDS: INSULIN (LEVEMIR) 100 UNITS/ML UNITS SQ SCH (22:45)
[2018-04-05] MEDS: ATORVASTATIN CA 20 MG TABLET (FP) NGT SCH (22:45)
[2018-04-06] MEDS: PHENYTOIN 50 MG TAB.CHEW NGT SCH ×4 (00:23→22:16)
[2018-04-06] MEDS: INSULIN SLIDING SCALE (NOVOLOG) 1 VIAL SQ SCH ×4 (00:27→17:19)
[2018-04-06] MEDS: VANCOMYCIN 1,250 MG in DEXTROSE 5%-WATER - 250 ML IVPB SCH ×2 (01:45→15:51)
[2018-04-06] MEDS: PIPERACILLIN/TAZOB 4.5 GM 4.5 GM in DEXTROSE 5%-WATER 100 ML IVPB SCH ×3 (02:25→17:18)
[2018-04-06] MEDS ORDERED: HEMOQUE TEST 1 EACH EACH ONE ×2 (02:25→07:35)
[2018-04-06] MEDS: PROPOFOL 1,000,000 MCG/100 ML VIAL IVPB SCH ×2 (02:28→17:23)
[2018-04-06] MEDS ORDERED: HEMOQUE CONTROL SOLUTION ONE (03:09)
[2018-04-06] MEDS: HEPARIN NA (PORCINE) 5,000 UNITS/ML 1ML VIAL SQ SCH ×2 (06:14→13:39)
--- NOTE | 2018-04-06 07:58 | PN ---
Progress Note (short form) - Note Progress Note: Patient seen this AM. On ventilator,sedated on propofol, eyes closed, no roving eye movements, but no response to voice or tactile stimuli. Light reflex intact. + doll's eyes. EEG read by Dr. Mullen and while not in computer, verbal reading reports spikes in right temporal lobe. Continue phenytoin and f/u level.
[2018-04-06] MEDS ORDERED: PT OWN MED DRAWER 7, Y5N ONE ×4 (08:36→17:08)
--- NOTE | 2018-04-06 09:09 | PN ---
Teaching Attending Note Name of Resident: Isabella Velazquez ATTENDING PHYSICIAN STATEMENT I saw and evaluated the patient. I reviewed the resident's note and discussed the case with the resident. I agree with the resident's findings and plan as documented with exceptions below. SUBJECTIVE: Patient seen and examined. biting on vent, unable to do ROS OBJECTIVE: Vital Signs Period Temp Pulse Resp BP Sys/Martinez Pulse Ox Last 24 Hr 99 F-100.1 F 79-91 19-38 104-170/51-87 96-100 Intake & Output 04/03/18 04/04/18 04/05/18 04/06/18 23:59 23:59 23:59 23:59 Intake Total 3121.6 1718 293 3777 Output Total 1800 400 500 300 Balance 1321.6 1254 -195 710 Weight 282 lb 13.649 oz 284 lb 13.396 oz 284 lb 9.868 oz 284 lb 9.868 oz General: biting on vent, sedated Chest: limited exam, no rales or wheezing Abdomen: soft, obese, positive bowel sounds Extremities: +1 pedal edema Active Medications Artificial Tears (Artificial Tears) 1 drop OU BID PRN PRN Reason: DRY EYES Last Admin: 04/03/18 09:55 Dose: 1 drop Aspirin (Asa -) 81 mg PO DAILY SY[facility]IA Last Admin: 04/05/18 10:15 Dose: 81 mg Atorvastatin Calcium (Lipitor -) 20 mg NGT HS [facility] Last Admin: 04/05/18 22:45 Dose: 20 mg Chlorhexidine Gluconate (Peridex -) 15 ml MM BID [facility]IA Last Admin: 04/05/18 22:00 Dose: 15 ml Glycerin (Glycerin Suppository Adult -) 1 each RC DAILY PRN PRN Reason: CONSTIPATION Heparin Sodium (Porcine) (Heparin -) 5,000 unit SQ TID SYLVIA Last Admin: 04/06/18 06:14 Dose: 5,000 unit Piperacillin Sod/Tazobactam (Sod 4.5 gm/ Dextrose) 100 mls @ 200 mls/hr IVPB Q8H-IV SY[facility]IA; Protocol Last Admin: 04/06/18 02:25 Dose: 200 mls/hr Vancomycin HCl 1,250 mg/ (Dextrose) 250 mls @ 166.667 mls/hr IVPB Q12H SYLVIA; Protocol Last Admin: 04/06/18 01:45 Dose: 166.667 mls/hr Propofol (Diprivan -) 1,000,000 mcg in 100 mls @ 3.849 mls/hr IVPB TITR [facility]; Protocol Last Admin: 04/06/18 02:28 Dose: 30 mcg/kg/min, 23.094 mls/hr Insulin Aspart (Novolog Vial Sliding Scale -) 1 vial SQ Q6HPO [facility]; Protocol Last Admin: 04/06/18 06:20 Dose: 6 units Insulin Detemir (Levemir Vial) 30 units SQ HS [facility] Last Admin: 04/05/18 22:45 Dose: 30 units Lisinopril (Prinivil) 10 mg NGT DAILY [facility] Last Admin: 04/05/18 10:15 Dose: 10 mg Metoprolol Tartrate (Lopressor -) 50 mg NGT BID [facility] Last Admin: 04/05/18 22:45 Dose: 50 mg Morphine Sulfate (Morphine Sulfate) 2 mg IVPUSH Q3H PRN PRN Reason: PAIN LEVEL 6-10 Last Admin: 04/03/18 16:03 Dose: 2 mg Ondansetron HCl (Zofran Injection) 4 mg IVPUSH Q6H PRN PRN Reason: NAUSEA AND/OR VOMITING Pantoprazole Sodium (Protonix Iv) 40 mg IVPUSH DAILY [facility] Last Admin: 04/05/18 10:15 Dose: 40 mg Phenytoin Sodium (Dilantin Chewable Tablet -) 100 mg NGT TID [facility] Last Admin: 04/06/18 06:14 Dose: 100 mg Tamsulosin HCl (Flomax -) 0.4 mg PO DAILY [facility] Last Admin: 04/05/18 10:15 Dose: Not Given Laboratory Results - last 24 hr 04/05/18 04/05/18 04/06/18 13:04 17:48 00:22 POC Glucometer 346.57797 357.35112 [phone] ASSESSMENT AND PLAN: 62yo M with PMH Severe stenosis L2-L3 and L3-L4, HTN, DM and CAD S/p CABG presented for scheduled laminectomy complicated by cardiac arrest. -s/p cardiac arrest -Acute toxic metabolic encephalopathy -Acute hypoxic respiratory failure -Fever -HTN -DM Plan: s/p hypothermia protocol. Vent management per ICU. Propofol resumed. Cardiology/neurology input appreciated. EEG with temporal spikes per neurology, on phenytoin. Surgical management per Dr. Rodriguez. Zosyn/melina day 9, Cultures neg so far. Abx per ID. BP Improved, titrate meds as needed. BGM, ISS DVTPPX per spine Trach/peg per family wishes, goals of care. MICU monitoring. Guarded prognosis. total critical care time spent 35 min.
[2018-04-06] MEDS: PANTOPRAZOLE SODIUM 40 MG VIAL IVPUSH SCH (09:55)
[2018-04-06] MEDS: TAMSULOSIN HCL 0.4 MG CAP PO SCH (09:57)
[2018-04-06] MEDS: CHLORHEXIDINE GLUCONATE 0.12% 15ML CUP MM SCH ×2 (09:57→22:17)
[2018-04-06] MEDS: METOPROLOL TARTRATE 50 MG TABLET (FP) NGT SCH ×2 (09:57→22:17)
[2018-04-06] MEDS: LISINOPRIL 5 MG TABLET (FP) NGT SCH (09:57)
[2018-04-06] MEDS: ASPIRIN 81 MG CHEWABLE TABLETS PO SCH (09:57)
--- NOTE | 2018-04-06 12:10 | PN ---
Progress Note, Physician History of Present Illness: Remains on mechanical ventilation off sedation, no arrhythmias on telemetry, hemodynamics stable, fevers improved. - Current Medication List Current Medications: Active Medications Artificial Tears (Artificial Tears) 1 drop OU BID PRN PRN Reason: DRY EYES Last Admin: 04/03/18 09:55 Dose: 1 drop Aspirin (Asa -) 81 mg PO DAILY [facility] Last Admin: 04/06/18 09:57 Dose: 81 mg Atorvastatin Calcium (Lipitor -) 20 mg NGT HS [facility] Last Admin: 04/05/18 22:45 Dose: 20 mg Chlorhexidine Gluconate (Peridex -) 15 ml MM BID [facility] Last Admin: 04/06/18 09:57 Dose: 15 ml Glycerin (Glycerin Suppository Adult -) 1 each RC DAILY PRN PRN Reason: CONSTIPATION Heparin Sodium (Porcine) (Heparin -) 5,000 unit SQ TID [facility] Last Admin: 04/06/18 06:14 Dose: 5,000 unit Piperacillin Sod/Tazobactam (Sod 4.5 gm/ Dextrose) 100 mls @ 200 mls/hr IVPB Q8H-IV [facility]; Protocol Last Admin: 04/06/18 02:25 Dose: 200 mls/hr Vancomycin HCl 1,250 mg/ (Dextrose) 250 mls @ 166.667 mls/hr IVPB Q12H [facility]; Protocol Last Admin: 04/06/18 01:45 Dose: 166.667 mls/hr Propofol (Diprivan -) 1,000,000 mcg in 100 mls @ 3.849 mls/hr IVPB TITR [facility]; Protocol Last Admin: 04/06/18 02:28 Dose: 30 mcg/kg/min, 23.094 mls/hr Insulin Aspart (Novolog Vial Sliding Scale -) 1 vial SQ Q6HPO [facility]; Protocol Last Admin: 04/06/18 06:20 Dose: 6 units Insulin Detemir (Levemir Vial) 30 units SQ HS [facility] Last Admin: 04/05/18 22:45 Dose: 30 units Lisinopril (Prinivil) 10 mg NGT DAILY [facility] Last Admin: 04/06/18 09:57 Dose: 10 mg Metoprolol Tartrate (Lopressor -) 50 mg NGT BID [facility] Last Admin: 04/06/18 09:57 Dose: 50 mg Morphine Sulfate (Morphine Sulfate) 2 mg IVPUSH Q3H PRN PRN Reason: PAIN LEVEL 6-10 Last Admin: 04/03/18 16:03 Dose: 2 mg Ondansetron HCl (Zofran Injection) 4 mg IVPUSH Q6H PRN PRN Reason: NAUSEA AND/OR VOMITING Pantoprazole Sodium (Protonix Iv) 40 mg IVPUSH DAILY [facility] Last Admin: 04/06/18 09:55 Dose: 40 mg Phenytoin Sodium (Dilantin Chewable Tablet -) 100 mg NGT TID [facility] Last Admin: 04/06/18 06:14 Dose: 100 mg Tamsulosin HCl (Flomax -) 0.4 mg PO DAILY [facility] Last Admin: 04/06/18 09:57 Dose: 0.4 mg - Objective Vital Signs: Vital Signs Temperature 99.4 F 04/06/18 10:00 Pulse Rate 86 04/06/18 10:00 Respiratory Rate 24 H 04/06/18 11:00 Blood Pressure 152/85 04/06/18 10:00 O2 Sat by Pulse Oximetry (%) 100 04/06/18 09:00 Neck: Yes: Supple Cardiovascular: Yes: Regular Rate and Rhythm Respiratory: Yes: Intubated, Mechanically Ventilated, Rhonchi Gastrointestinal: Yes: Normal Bowel Sounds, Soft, Abdomen, Obese Edema: Yes Edema: LLE: Trace, RLE: Trace Labs: CBC, BMP 04/05/18 05:30 04/05/18 05:30 INR, PTT INR 1.19 (0.83-1.09) H 03/27/18 23:30 Problem List - Problems (1) Status post lumbar laminectomy Code(s): Z98.890 - OTHER SPECIFIED POSTPROCEDURAL STATES (2) CAD (coronary artery disease) Code(s): I25.10 - ATHSCL HEART DISEASE OF [place] CORONARY ARTERY W/O ANG PCTRS Qualifiers: Coronary Disease-Associated Artery/Lesion type: [place] artery [place] vs. transplanted heart: [place] heart Associated angina: without angina Qualified Code(s): I25.10 - Atherosclerotic heart disease of [place] coronary artery without angina pectoris (3) Cardiac arrest Code(s): I46.9 - CARDIAC ARREST, CAUSE UNSPECIFIED (4) Encephalopathy acute Code(s): G93.40 - ENCEPHALOPATHY, UNSPECIFIED (5) HLD (hyperlipidemia) Code(s): E78.5 - HYPERLIPIDEMIA, UNSPECIFIED Qualifiers: Hyperlipidemia type: pure hypercholesterolemia Qualified Code(s): E78.00 - Pure hypercholesterolemia, unspecified; E78.0 - Pure hypercholesterolemia (6) HTN (hypertension) Code(s): I10 - ESSENTIAL (PRIMARY) HYPERTENSION Qualifiers: Hypertension type: essential hypertension Qualified Code(s): I10 - Essential (primary) hypertension (7) Hx of CABG Code(s): Z95.1 - PRESENCE OF AORTOCORONARY BYPASS GRAFT (8) Insulin dependent diabetes mellitus Code(s): E11.9 - TYPE 2 DIABETES MELLITUS WITHOUT COMPLICATIONS; Z79.4 - INFO SPECIALIST (CURRENT) USE OF INSULIN (9) Demand ischemia Code(s): I24.8 - OTHER FORMS OF ACUTE ISCHEMIC HEART DISEASE Assessment/Plan 03/28/2018 Echocardiography report noted, normal LV systolic function, with LVEF 0f 55%, walll motion cannot be assessed (upon study review there is abnormal septal motion consistent with prior open heart surgery) no significant valvular pathology, normal RV size and fxn. 03/29/2018 CT suspicious for ischemia left posterior circulation ASSESSMENT: 1. Post cardiopulmonary arrest/pulse-less electrical activity, ventricular tachycardia post resuscitation currently ventilator-dependent 2. Post operative day #10 post L1-S1 laminectomy and T12-S1 posterior instrumentation 3. Anoxic brain injury with evidence of acute/subacute CVA on CT of the head, EEG shows spikes in right temporal lobe 4. CAD post CABG angina pectoris with demand ischemia - troponins have peaked 5. LV diastolic dysfunction with class 0 NYHA classification LV failure 6. HTN 7. DM 8. hypercholesterolemia PLAN: 1. Continue Lopressor 50 bid, lisinopril 10 qd, ASA 81 qd, and Lipitor 20 qd 2. Hold off on Plavix resumption as additional intervention is planned 3. Neurology evaluation appreciated, EEG shows left temporal seizures and diffuse encephelopathy, seizure prophylaxis 4. Hold sedation as tolerated 5. Empiric abx coverage per ID for open wound and fever, f/u C&S 6. DVT/GI prophylaxis, enteral feeds 7. Will likely need trach/PEG
--- NOTE | 2018-04-06 13:02 | PN ---
Progress Note, Physician History of Present Illness: Off sedation Not responsive on ventilator Low grade temp noted Cultures no growth - Current Medication List Current Medications: Active Medications Artificial Tears (Artificial Tears) 1 drop OU BID PRN PRN Reason: DRY EYES Last Admin: 04/03/18 09:55 Dose: 1 drop Aspirin (Asa -) 81 mg PO DAILY [facility] Last Admin: 04/06/18 09:57 Dose: 81 mg Atorvastatin Calcium (Lipitor -) 20 mg NGT HS [facility] Last Admin: 04/05/18 22:45 Dose: 20 mg Chlorhexidine Gluconate (Peridex -) 15 ml MM BID [facility] Last Admin: 04/06/18 09:57 Dose: 15 ml Glycerin (Glycerin Suppository Adult -) 1 each RC DAILY PRN PRN Reason: CONSTIPATION Heparin Sodium (Porcine) (Heparin -) 5,000 unit SQ TID [facility] Last Admin: 04/06/18 06:14 Dose: 5,000 unit Piperacillin Sod/Tazobactam (Sod 4.5 gm/ Dextrose) 100 mls @ 200 mls/hr IVPB Q8H-IV [facility]; Protocol Last Admin: 04/06/18 02:25 Dose: 200 mls/hr Vancomycin HCl 1,250 mg/ (Dextrose) 250 mls @ 166.667 mls/hr IVPB Q12H [facility]; Protocol Last Admin: 04/06/18 01:45 Dose: 166.667 mls/hr Propofol (Diprivan -) 1,000,000 mcg in 100 mls @ 3.849 mls/hr IVPB TITR [facility]; Protocol Last Admin: 04/06/18 02:28 Dose: 30 mcg/kg/min, 23.094 mls/hr Insulin Aspart (Novolog Vial Sliding Scale -) 1 vial SQ Q6HPO [facility]; Protocol Last Admin: 04/06/18 06:20 Dose: 6 units Insulin Detemir (Levemir Vial) 30 units SQ HS [facility] Last Admin: 04/05/18 22:45 Dose: 30 units Lisinopril (Prinivil) 10 mg NGT DAILY [facility] Last Admin: 04/06/18 09:57 Dose: 10 mg Metoprolol Tartrate (Lopressor -) 50 mg NGT BID [facility] Last Admin: 04/06/18 09:57 Dose: 50 mg Morphine Sulfate (Morphine Sulfate) 2 mg IVPUSH Q3H PRN PRN Reason: PAIN LEVEL 6-10 Last Admin: 04/03/18 16:03 Dose: 2 mg Ondansetron HCl (Zofran Injection) 4 mg IVPUSH Q6H PRN PRN Reason: NAUSEA AND/OR VOMITING Pantoprazole Sodium (Protonix Iv) 40 mg IVPUSH DAILY [facility] Last Admin: 04/06/18 09:55 Dose: 40 mg Phenytoin Sodium (Dilantin Chewable Tablet -) 100 mg NGT TID [facility] Last Admin: 04/06/18 06:14 Dose: 100 mg Tamsulosin HCl (Flomax -) 0.4 mg PO DAILY [facility] Last Admin: 04/06/18 09:57 Dose: 0.4 mg - Objective Vital Signs: Vital Signs Temperature 99.4 F 04/06/18 10:00 Pulse Rate 88 04/06/18 12:00 Respiratory Rate 22 H 04/06/18 12:00 Blood Pressure 169/60 04/06/18 12:00 O2 Sat by Pulse Oximetry (%) 100 04/06/18 09:00 Constitutional: Yes: No Distress Eyes: Yes: Conjunctiva Clear Cardiovascular: Yes: Regular Rate and Rhythm, S1, S2 Respiratory: Yes: Mechanically Ventilated Gastrointestinal: Yes: Normal Bowel Sounds, Soft. No: Tenderness Edema: Yes Labs: CBC, BMP 04/05/18 05:30 04/05/18 05:30 INR, PTT INR 1.19 (0.83-1.09) H 03/27/18 23:30 Assessment/Plan S/P cardiopulmonary arrest Fever/ leukocytosis R/O sepsis Diabetes mellitus S/P laminectomy continue empiric zosyn/ vancomycin ventilatory/ hemodynamic support Prognosis guarded
--- NOTE | 2018-04-06 15:54 | PN ---
Teaching Attending Note Name of Resident: China Randle ATTENDING PHYSICIAN STATEMENT I saw and evaluated the patient. I reviewed the resident's note and discussed the case with the resident. I agree with the resident's findings and plan as documented. SUBJECTIVE: Patient seen and examined in the ICU. Remains intubated, AC Mode of vent, 35% FiO2. No gross change in Neuro exam. No pressors. OBJECTIVE: Intake & Output 04/03/18 04/04/18 04/05/18 04/06/18 23:59 23:59 23:59 23:59 Intake Total 3121.6 5738 618 6390 Output Total 1800 400 500 300 Balance 1321.6 1254 -195 710 Weight 282 lb 13.649 oz 284 lb 13.396 oz 284 lb 9.868 oz 284 lb 9.868 oz Last Vital Signs Temp Pulse Resp BP Pulse Ox 98.6 F 88 24 H 114/52 L 100 04/06/18 13:32 04/06/18 15:00 04/06/18 15:00 04/06/18 15:00 04/06/18 09:00 Active Medications Artificial Tears (Artificial Tears) 1 drop OU BID PRN PRN Reason: DRY EYES Last Admin: 04/03/18 09:55 Dose: 1 drop Aspirin (Asa -) 81 mg PO DAILY [facility] Last Admin: 04/06/18 09:57 Dose: 81 mg Atorvastatin Calcium (Lipitor -) 20 mg NGT HS [facility] Last Admin: 04/05/18 22:45 Dose: 20 mg Chlorhexidine Gluconate (Peridex -) 15 ml MM BID [facility] Last Admin: 04/06/18 09:57 Dose: 15 ml Glycerin (Glycerin Suppository Adult -) 1 each RC DAILY PRN PRN Reason: CONSTIPATION Heparin Sodium (Porcine) (Heparin -) 5,000 unit SQ TID [facility] Last Admin: 04/06/18 13:39 Dose: 5,000 unit Piperacillin Sod/Tazobactam (Sod 4.5 gm/ Dextrose) 100 mls @ 200 mls/hr IVPB Q8H-IV [facility]; Protocol Last Admin: 04/06/18 13:19 Dose: 200 mls/hr Vancomycin HCl 1,250 mg/ (Dextrose) 250 mls @ 166.667 mls/hr IVPB Q12H [facility]; Protocol Last Admin: 04/06/18 15:51 Dose: 166.667 mls/hr Propofol (Diprivan -) 1,000,000 mcg in 100 mls @ 3.849 mls/hr IVPB TITR [facility]; Protocol Last Admin: 04/06/18 02:28 Dose: 30 mcg/kg/min, 23.094 mls/hr Insulin Aspart (Novolog Vial Sliding Scale -) 1 vial SQ Q6HPO [facility]; Protocol Last Admin: 04/06/18 13:20 Dose: 8 units Insulin Detemir (Levemir Vial) 30 units SQ HS [facility] Last Admin: 04/05/18 22:45 Dose: 30 units Lisinopril (Prinivil) 10 mg NGT DAILY [facility] Last Admin: 04/06/18 09:57 Dose: 10 mg Metoprolol Tartrate (Lopressor -) 50 mg NGT BID [facility] Last Admin: 04/06/18 09:57 Dose: 50 mg Ondansetron HCl (Zofran Injection) 4 mg IVPUSH Q6H PRN PRN Reason: NAUSEA AND/OR VOMITING Pantoprazole Sodium (Protonix Iv) 40 mg IVPUSH DAILY [facility] Last Admin: 04/06/18 09:55 Dose: 40 mg Phenytoin Sodium (Dilantin Chewable Tablet -) 100 mg NGT TID [facility] Last Admin: 04/06/18 13:39 Dose: 100 mg Tamsulosin HCl (Flomax -) 0.4 mg PO DAILY [facility] Last Admin: 04/06/18 09:57 Dose: 0.4 mg Gen: intubated, poorly responsive (off propofol) Heart: RRR Lung: decreased breath sounds at the bases Abd: soft, nontender Ext: + edema Laboratory Results - last 24 hr 04/05/18 04/05/18 04/06/18 13:04 17:48 00:22 POC Glucometer 346.75050 357.58340 293.67673 04/06/18 04/06/18 06:18 12:07 POC Glucometer 292.55469 300.48239 ASSESSMENT AND PLAN: s/p PEA/VTach Cardiopulmonary Arrest Anoxic Encephalopathy / Brain Injury s/p Lumbar Laminectomy CAD s/p CABG +Troponins likely Demand Ischemia LV Systolic/Diastolic Dysfunction HTN DM Hypercholesterolemia CKD - ABX per ID - hold all sedation to assess mental status - enteral feeds - DVT/GI prophylaxis - NOK still deciding on GOC: PEG/Trach and prolonged chronic care versus compassionate extubation. - continue ICU monitoring Dr Hsu Critical care time spent in reviewing chart, evaluating patient and formulating plan 35 min
--- NOTE | 2018-04-06 17:20 | PN ---
Physical Exam: SUBJECTIVE: - No acute events overnight - Bites tube, opens eyes when off sedation OBJECTIVE: Vital Signs Period Temp Pulse Resp BP Sys/Martinez Pulse Ox Last 24 Hr 98.6 F-99.9 F 80-91 19-38 110-169/51-85 96-100 General: Intubated and sedated HEENT: Upward gaze. R eye deviated to right. Pupils sluggish but equal and reactive. RIJ in place. NTG with TF running. Cards: RRR, no murmur appreciated Pulm: Mechanically ventilated. Overbreathing vent to rate in low 20's. Abd: Soft, nondistended Ext: No LE edema. : Jimenez in place, draining freely Neuro: Sedated. Opens eyes, no eye movements noted. No limb movement observed Laboratory Results - last 24 hr 04/05/18 04/05/18 04/06/18 13:04 17:48 00:22 POC Glucometer 346.54006 357.58987 [phone] 04/06/18 04/06/18 06:18 12:07 POC Glucometer 292.30394 300.22086 Active Medications Generic Name Dose Route Start Last Admin Trade Name Freq PRN Reason Stop Dose Admin Artificial Tears 1 drop 03/28/18 07:59 04/03/18 09:55 Artificial Tears OU 1 drop BID PRN Administration DRY EYES Aspirin 81 mg 03/30/18 10:00 04/06/18 09:57 Asa - PO 81 mg DAILY [facility] Administration Atorvastatin Calcium 20 mg 03/30/18 22:00 04/05/18 22:45 Lipitor - NGT 20 mg HS [facility] Administration Chlorhexidine Gluconate 15 ml 03/30/18 12:30 04/06/18 09:57 Peridex - MM 15 ml BID [facility] Administration Glycerin 1 each 03/27/18 21:55 Glycerin Suppository Adult - RC DAILY PRN CONSTIPATION Heparin Sodium (Porcine) 5,000 unit 03/30/18 22:00 04/06/18 13:39 Heparin - SQ 5,000 unit TID [facility] Administration Piperacillin Sod/Tazobactam 100 mls @ 200 mls/hr 03/30/18 12:00 04/06/18 13: 19 Sod 4.5 gm/ Dextrose IVPB 200 mls/hr Q8H-IV [facility] Administration Protocol Vancomycin HCl 1,250 mg/ 250 mls @ 166.667 mls/hr 04/02/18 13:00 04/06/18 15: 51 Dextrose IVPB 166.667 mls/hr Q12H [facility] Administration Protocol Propofol 1,000,000 mcg in 100 mls @ 3.849 mls/hr 04/03/18 16:15 04/06/18 02: 28 Diprivan - IVPB 30 mcg/kg/min TITR [facility] 23.094 mls/hr Administration Protocol 5 MCG/KG/MIN Insulin Aspart 1 vial 03/30/18 15:45 04/06/18 13:20 Novolog Vial Sliding Scale - SQ 8 units Q6HPO [facility] Administration Protocol Insulin Detemir 30 units 03/27/18 22:00 04/05/18 22:45 Levemir Vial SQ 30 units HS [facility] Administration Lisinopril 10 mg 04/02/18 08:25 04/06/18 09:57 Prinivil NGT 10 mg DAILY [facility] Administration Metoprolol Tartrate 50 mg 04/02/18 08:25 04/06/18 09:57 Lopressor - NGT 50 mg BID [facility] Administration Ondansetron HCl 4 mg 03/27/18 21:56 Zofran Injection IVPUSH Q6H PRN NAUSEA AND/OR VOMITING Pantoprazole Sodium 40 mg 03/28/18 10:30 04/06/18 09:55 Protonix Iv IVPUSH 40 mg DAILY [facility] Administration Phenytoin Sodium 100 mg 04/03/18 14:30 04/06/18 13:39 Dilantin Chewable Tablet - NGT 100 mg TID [facility] Administration Tamsulosin HCl 0.4 mg 03/28/18 10:00 04/06/18 09:57 Flomax - PO 0.4 mg DAILY [facility] Administration ASSESSMENT/PLAN: Marco Land is a 62yo man with a PMH of CAD s/p CABG, HTN, HLD, IDDM, chronic back pain due to spinal stnosis with rapid neurological decline. He underwent cardiac arrest during a planned surgery on 03/27. ROSC was achieved after 26 minutes of CPR. He was transferred to the ICU and underwent cooling protocol. Since his arrest, Mr Land has had ongoing signs of anoxic brain injury and has not shown any purposeful activity. There is no indication that his neurologic status is improving. He remains in critical condition in the ICU. Neuro: - CT head on 03/29 and 03/31 with anoxic brain injury and infarct in the left occipital lobe - Off sedation as tolerated. Propofol as needed - PRN morphine 2mg Q3hr for discomfort - EEG without status epilepticus, but high seizure potential, encephalopathy. Continue dilantin 100mg TID per neurology. - Neuro following. CV: - s/p cardiac arrest. H/o CAD, CABG, HTN - Cardiology following - Cooling protocol completed - Echo completed, relatively normal, EF 55%, no right heart strain, no wall motion abnormalities - Elevated trops post-code, trended until decreasing. Peak 5.17 - Continue metoprolol, lisinopril 5mg daily, ASA 81 via NGT Pulm: - Mechanically ventilated - Current settings SIMV, 450cc, 35%, PEEP 5, rate 12. - Overbreathing vent - Weaning trials as tolerated - IS 10x per hour Heme: - Daily ASA. Continue to hold plavix per cards - Hgb stable, likely due to slight oozing into wound. - Transfuse as needed if hgb continues to decrease - Monitor daily CBC GI: - NGT in place - Tolerating tube feeds - Daily PPI while intubated and with NGT - LFTs downtrending - Rectal tube to keep back wound clean Renal: - Jimenez in place, adequate UOP - MIAN resolved - Holding home flomax ID: - Leukocytosis continuing to downtrend, to 13.3 from high of 20.3. May be stress response to surgery, CPR, arrest but could also indicate infection or temperature disregulation secondary to arrest/hypoxia. Cultures NGTD. - Empiric vanc/zosyn - Fevers resolved. - Dr Álvarez following - Monitor morning CBC Endo: - h/o IDDM - Continue ISS Q6hr - Sugars have been well controlled in high 100's - 200 Musc: - Soft wrist restraints to prevent pulling ETT or lines - Monitoring back incision per nursing. No active bleeding - Dry dressing to be replaced/reinforced as needed for drainage. - Will contact Dr Rodriguez as needed if active bleeding is suspected PPx: - SQH, SCD's - PPI daily FEN: - TF at goal (promote, goal 1750cc daily) - SLIV. 10cc free water flush per hour - Replete lytes PRN Dispo: - Critically ill patient requiring ongoing ICU-level care - Family deciding whether to pursue trach/PEG - Palliative consulted and working with the family Code status: DNR Seen and discussed with Dr Hsu. China Randle PGY1 Visit type - Emergency Visit Emergency Visit: No - New Patient This patient is new to me today: No - Critical Care Critical Care patient: Yes Total Critical Care Time (in minutes): 45 Critical Care Statement: The care of this patient involved high complexity decision making to prevent further life threatening deterioration of the patient 's condition and/or to evaluate & treat vital organ system(s) failure or risk of failure.
--- NOTE | 2018-04-06 18:44 | PN ---
Physical Exam: SUBJECTIVE: Patient seen and examined at bedside this morning. Sedated and intubated. OBJECTIVE: Vital Signs Period Temp Pulse Resp BP Sys/Martinez Pulse Ox Last 24 Hr 98.6 F-100 F 80-92 19-38 110-169/51-85 96-100 GENERAL: The patient is intubated. minimally sedated. Eyes blinking. LUNGS: Coarse breath sounds. HEART: Regular rate and rhythm, S1, S2 without murmur, rub or gallop. ABDOMEN: Soft,obese, nondistended. EXTREMITIES: 2+ pulses, warm, well-perfused, no edema. Laboratory Results - last 24 hr 04/05/18 04/05/18 04/06/18 13:04 17:48 00:22 POC Glucometer 346.78374 357.70291 [phone] 04/06/18 04/06/18 06:18 12:07 POC Glucometer 292.74907 300.38303 Active Medications Generic Name Dose Route Start Last Admin Trade Name Freq PRN Reason Stop Dose Admin Artificial Tears 1 drop 03/28/18 07:59 04/03/18 09:55 Artificial Tears OU 1 drop BID PRN Administration DRY EYES Aspirin 81 mg 03/30/18 10:00 04/06/18 09:57 Asa - PO 81 mg DAILY SYLVIA Administration Atorvastatin Calcium 20 mg 03/30/18 22:00 04/05/18 22:45 Lipitor - NGT 20 mg HS SYLVIA Administration Chlorhexidine Gluconate 15 ml 03/30/18 12:30 04/06/18 09:57 Peridex - MM 15 ml BID SYLVIA Administration Glycerin 1 each 03/27/18 21:55 Glycerin Suppository Adult - RC DAILY PRN CONSTIPATION Heparin Sodium (Porcine) 5,000 unit 03/30/18 22:00 04/06/18 13:39 Heparin - SQ 5,000 unit TID SYLVIA Administration Piperacillin Sod/Tazobactam 100 mls @ 200 mls/hr 03/30/18 12:00 04/06/18 17: 18 Sod 4.5 gm/ Dextrose IVPB 200 mls/hr Q8H-IV SYLVIA Administration Protocol Vancomycin HCl 1,250 mg/ 250 mls @ 166.667 mls/hr 04/02/18 13:00 04/06/18 15: 51 Dextrose IVPB 166.667 mls/hr Q12H SYLVIA Administration Protocol Propofol 1,000,000 mcg in 100 mls @ 3.849 mls/hr 04/03/18 16:15 04/06/18 17: 23 Diprivan - IVPB 30 mcg/kg/min TITR SYLVIA 23.094 mls/hr Administration Protocol 5 MCG/KG/MIN Insulin Aspart 1 vial 03/30/18 15:45 04/06/18 17:19 Novolog Vial Sliding Scale - SQ 8 units Q6HPO SYLVIA Administration Protocol Insulin Detemir 30 units 03/27/18 22:00 04/05/18 22:45 Levemir Vial SQ 30 units HS SYLVIA Administration Lisinopril 10 mg 04/02/18 08:25 04/06/18 09:57 Prinivil NGT 10 mg DAILY SYLVIA Administration Metoprolol Tartrate 50 mg 04/02/18 08:25 04/06/18 09:57 Lopressor - NGT 50 mg BID SYLVIA Administration Ondansetron HCl 4 mg 03/27/18 21:56 Zofran Injection IVPUSH Q6H PRN NAUSEA AND/OR VOMITING Pantoprazole Sodium 40 mg 03/28/18 10:30 04/06/18 09:55 Protonix Iv IVPUSH 40 mg DAILY SYLVIA Administration Phenytoin Sodium 100 mg 04/03/18 14:30 04/06/18 13:39 Dilantin Chewable Tablet - NGT 100 mg TID SYLVIA Administration Tamsulosin HCl 0.4 mg 03/28/18 10:00 04/06/18 09:57 Flomax - PO 0.4 mg DAILY SYLVIA Administration Imaging Echo - LV systolic function is grossly normal. EF = 55%. Regional wall motion abnormalities cannot be excluded due to limited visualization. There is trace mitral regurgitation. There is trace tricuspid regurgitation. There is mild pulmonary hypertension. Head CT w/o contrast (03/31/18) - Evolving left posterior cerebral artery territory acute/subacute infarct. Otherwise, no gross mass lesion or intracranial hemorrhage are identified. There is no shift of the midline structures or evidence of inferior herniation. Poor visualization of the ye- white matter junction. There is also paucity of the cortical sulci the patient' s age. Cannot rule out the brain swelling/edema. The basal cisterns are not effaced. Head CT w/o contrast (03/29/18) - Slightly limited examination, as described above in particular evaluation of the inferior aspect of the posterior fossa. There is suggestion of faint low-attenuation density in the left occipital lobe , medially. An acute infarct cannot be excluded. No gross intracranial hemorrhage is seen. CXR (03/31/18) - Since 03/31/18 at 0506 hours, the endotracheal tube, right jugular line and mediastinal clips and sutures persist. Tubing projects over the chest. There is a large heart, unfolded aorta and prominent central markings. CXR (03/31/18) - Since the prior study of 03/30/18 at 1030 hours, there is slight increase in lung markings at the bases. The endotracheal tube, nasogastric tube and right jugular line persist. CXR (03/27/18) - Since the earlier study of 03/16/2018, the endotracheal tube has been inserted and the tip is well above the leroy. Right jugular line is been inserted and the tip is in the SVC's junction with the right atrium. There are sternal sutures with weak inspiration, increased central markings and prominent mediastinum. There may be some fluid at the right base. There is no sign of a pneumothorax. Microbiology 03/30/18 11:00 Back Gram Stain - Final 03/30/18 11:00 Back Wound Culture - Preliminary NO GROWTH OBTAINED AFTER 24 HOURS INCUBATION, REINCUBATED. 03/29/18 17:30 Urine - Urine Jimenez Urine Culture - Final NO GROWTH OBTAINED 03/29/18 17:30 Blood - Central Line Blood Culture - Preliminary NO GROWTH OBTAINED AFTER 24 HOURS, INCUBATION TO CONTINUE FOR 4 DAYS. 03/29/18 17:30 Blood - Central Line Blood Culture - Preliminary NO GROWTH OBTAINED AFTER 24 HOURS, INCUBATION TO CONTINUE FOR 4 DAYS. ASSESSMENT/PLAN: Patient is a 62 year old male with past medical history of chronic low back pain , CAD s/p CABG on plavix (held prior to surgery), HTN, HLD, DM, and BPH presented as outpatient for planned L1-S1 laminectomy and T12-S1 posterior instrumented spinal fusion. During the surgery, patient became pulseless, ACLS protocol initiated, and ROSC achieved. #ROSC s/p cardiopulmonary arrest -Hypothermia protocol finished. -Cardiology (Dr. Bush) consulted. Recommendations appreciated. -IV Metoprolol switch to PO Lopressor BID via NGT. -Lisinopril 5mg daily and ASA 81mg started through NGT -hold off on Plavix resumption -Statins unless contraindicated. -Echocardiography - EF 55%, no right heart strain, no wall motion abnormalities -Mechanically ventilated.Management as per ICU #Anoxic brain injury -Neurology consulted. Recommendations appreciated. -Minimal propofol. Off sedation as tolerated. -Vecuronium drip and fentanyl drip discontinued. 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 No gross mass lesion or ICH. No shift of midline structures or evidence of inferior herniation. Poor visualization of ye-white matter junction. There is paucity of cortical sulci. Cannot r/o brain swelling/edema. Basal cisterns are not effaced. -EEG - This EEG is abnormal. These findings are nonspecific and may be seen with diffuse encephalopathy of metabolic, degenerative or vascular origin. Localized sharp wave activity was noted in the left temporal area suggestive of epiliptiform disturbance. #Spinal Wound -Mid back incision with skin sutures but layered closure not completed due to cardiac arrest -Monitor wound and daily CBC. -Surgical management of wound as per Dr. Rodriguez. #Leukocytosis: -Likely reactive -ID consulted. Recommendations appreciated. -Empiric Vancomycin and Zosyn day 6 -will continue to monitor #CAD s/p CABG -Continue ASA -hold home medication Plavix -will monitor #Hypertension -Metoprolol resumed. -Will monitor BP #DM -Discontinued insulin drip -Sliding scale implemented q4h -BGM q4h #MIAN: resolved -likely 2/2 pre-renal from poor perfusion during the arrest -Jimenez catheter placed -urine lytes ordered. -will monitor renal function #FEN -IV NS @ 125 ml/hr -Tube feeding (high protein, low kcal) -Routine bmp monitoring, will replete lytes as needed. #Prophylaxis -TEDs, SCDs #Disposition -ICU for close monitoring -Family meeting held for [facility]. Sisters signed DNR. Visit type - Emergency Visit Emergency Visit: Yes ED Registration Date: 03/27/18 Care time: The patient presented to the Emergency Department on the above date and was hospitalized for further evaluation of their emergent condition. - New Patient This patient is new to me today: Yes Date on this admission: 04/06/18 - Critical Care Critical Care patient: Yes Total Critical Care Time (in minutes): 35 Critical Care Statement: The care of this patient involved high complexity decision making to prevent further life threatening deterioration of the patient 's condition and/or to evaluate & treat vital organ system(s) failure or risk of failure.
[2018-04-06] MEDS: ATORVASTATIN CA 20 MG TABLET (FP) NGT SCH (22:17)
[2018-04-06] MEDS: INSULIN (LEVEMIR) 100 UNITS/ML UNITS SQ SCH (22:19)
[2018-04-07] MEDS ORDERED: INSULIN (NOVOLOG) ASPART 100 UNITS/ML 10ML VIAL ONE ×2 (00:02→06:09)
[2018-04-07] MEDS: INSULIN SLIDING SCALE (NOVOLOG) 1 VIAL SQ SCH ×4 (00:03→17:18)
[2018-04-07] MEDS: VANCOMYCIN 1,250 MG in DEXTROSE 5%-WATER - 250 ML IVPB SCH ×2 (00:04→17:58)
[2018-04-07] MEDS: PIPERACILLIN/TAZOB 4.5 GM 4.5 GM in DEXTROSE 5%-WATER 100 ML IVPB SCH ×3 (02:30→17:18)
[2018-04-07] MEDS: PHENYTOIN 50 MG TAB.CHEW NGT SCH ×3 (05:41→21:33)
[2018-04-07] MEDS ORDERED: PT OWN MED DRAWER 7, Y5N ONE (09:22)
[2018-04-07] MEDS: ASPIRIN 81 MG CHEWABLE TABLETS PO SCH (10:46)
[2018-04-07] MEDS: LISINOPRIL 5 MG TABLET (FP) NGT SCH (10:46)
[2018-04-07] MEDS: PANTOPRAZOLE SODIUM 40 MG VIAL IVPUSH SCH (10:46)
[2018-04-07] MEDS: METOPROLOL TARTRATE 50 MG TABLET (FP) NGT SCH ×2 (10:46→21:33)
[2018-04-07] MEDS: TAMSULOSIN HCL 0.4 MG CAP PO SCH (10:46)
[2018-04-07] MEDS: CHLORHEXIDINE GLUCONATE 0.12% 15ML CUP MM SCH ×2 (10:47→21:33)
--- NOTE | 2018-04-07 10:47 | PN ---
Progress Note, Physician History of Present Illness: Sedated on ventilator Not responsive Low grade temp noted Cultures no growth - Current Medication List Current Medications: Active Medications Artificial Tears (Artificial Tears) 1 drop OU BID PRN PRN Reason: DRY EYES Last Admin: 04/03/18 09:55 Dose: 1 drop Aspirin (Asa -) 81 mg PO DAILY COUNTS INCLUDE 234 BEDS AT THE [facility] Last Admin: 04/06/18 09:57 Dose: 81 mg Atorvastatin Calcium (Lipitor -) 20 mg NGT HS COUNTS INCLUDE 234 BEDS AT THE [facility] Last Admin: 04/06/18 22:17 Dose: 20 mg Chlorhexidine Gluconate (Peridex -) 15 ml MM BID COUNTS INCLUDE 234 BEDS AT THE [facility] Last Admin: 04/06/18 22:17 Dose: 15 ml Glycerin (Glycerin Suppository Adult -) 1 each RC DAILY PRN PRN Reason: CONSTIPATION Piperacillin Sod/Tazobactam (Sod 4.5 gm/ Dextrose) 100 mls @ 200 mls/hr IVPB Q8H-IV COUNTS INCLUDE 234 BEDS AT THE [facility]; Protocol Last Admin: 04/07/18 02:30 Dose: 200 mls/hr Vancomycin HCl 1,250 mg/ (Dextrose) 250 mls @ 166.667 mls/hr IVPB Q12H COUNTS INCLUDE 234 BEDS AT THE [facility]; Protocol Last Admin: 04/07/18 00:04 Dose: 166.667 mls/hr Propofol (Diprivan -) 1,000,000 mcg in 100 mls @ 3.849 mls/hr IVPB TITR COUNTS INCLUDE 234 BEDS AT THE [facility]; Protocol Last Titration: 04/07/18 06:23 Dose: 25 mcg/kg/min, 19.245 mls/hr Insulin Aspart (Novolog Vial Sliding Scale -) 1 vial SQ Q6HPO COUNTS INCLUDE 234 BEDS AT THE [facility]; Protocol Last Admin: 04/07/18 05:41 Dose: 4 units Insulin Detemir (Levemir Vial) 30 units SQ [facility] Last Admin: 04/06/18 22:19 Dose: 30 units Lisinopril (Prinivil) 10 mg NGT DAILY COUNTS INCLUDE 234 BEDS AT THE [facility] Last Admin: 04/06/18 09:57 Dose: 10 mg Metoprolol Tartrate (Lopressor -) 50 mg NGT BID COUNTS INCLUDE 234 BEDS AT THE [facility] Last Admin: 04/06/18 22:17 Dose: 50 mg Ondansetron HCl (Zofran Injection) 4 mg IVPUSH Q6H PRN PRN Reason: NAUSEA AND/OR VOMITING Pantoprazole Sodium (Protonix Iv) 40 mg IVPUSH DAILY COUNTS INCLUDE 234 BEDS AT THE [facility] Last Admin: 10/11/18 09:55 Dose: 40 mg Phenytoin Sodium (Dilantin Chewable Tablet -) 100 mg NGT TID COUNTS INCLUDE 234 BEDS AT THE [facility] Last Admin: 04/07/18 05:41 Dose: 100 mg Tamsulosin HCl (Flomax -) 0.4 mg PO DAILY COUNTS INCLUDE 234 BEDS AT THE [facility] Last Admin: 04/06/18 09:57 Dose: 0.4 mg - Objective Vital Signs: Vital Signs Temperature 99.6 F 04/07/18 06:00 Pulse Rate 74 04/07/18 08:00 Respiratory Rate 20 04/07/18 10:32 Blood Pressure 118/62 04/07/18 08:00 O2 Sat by Pulse Oximetry (%) 100 04/06/18 21:00 Constitutional: Yes: No Distress Eyes: Yes: Conjunctiva Clear Cardiovascular: Yes: Regular Rate and Rhythm, S1, S2 Respiratory: Yes: Mechanically Ventilated Gastrointestinal: Yes: Normal Bowel Sounds, Soft. No: Tenderness Edema: Yes Labs: CBC, BMP 04/05/18 05:30 04/05/18 05:30 INR, PTT INR 1.19 (0.83-1.09) H 03/27/18 23:30 Assessment/Plan S/P cardiopulmonary arrest Fever/ leukocytosis R/O sepsis Diabetes mellitus S/P laminectomy continue empiric zosyn/ vancomycin ventilatory/ hemodynamic support Prognosis guarded
--- NOTE | 2018-04-07 11:08 | PN ---
Progress Note, Physician History of Present Illness: Remains on mechanical ventilation, no sustained arrhythmias on telemetry, hemodynamics stable, fevers improved. - Current Medication List Current Medications: Active Medications Artificial Tears (Artificial Tears) 1 drop OU BID PRN PRN Reason: DRY EYES Last Admin: 04/03/18 09:55 Dose: 1 drop Aspirin (Asa -) 81 mg PO DAILY [facility] Last Admin: 04/07/18 10:46 Dose: 81 mg Atorvastatin Calcium (Lipitor -) 20 mg NGT HS [facility] Last Admin: 04/06/18 22:17 Dose: 20 mg Chlorhexidine Gluconate (Peridex -) 15 ml MM BID [facility] Last Admin: 04/07/18 10:47 Dose: 15 ml Glycerin (Glycerin Suppository Adult -) 1 each RC DAILY PRN PRN Reason: CONSTIPATION Piperacillin Sod/Tazobactam (Sod 4.5 gm/ Dextrose) 100 mls @ 200 mls/hr IVPB Q8H-IV [facility]; Protocol Last Admin: 04/07/18 10:40 Dose: 200 mls/hr Vancomycin HCl 1,250 mg/ (Dextrose) 250 mls @ 166.667 mls/hr IVPB Q12H [facility]IA; Protocol Last Admin: 04/07/18 00:04 Dose: 166.667 mls/hr Propofol (Diprivan -) 1,000,000 mcg in 100 mls @ 3.849 mls/hr IVPB TITR SYLVIA; Protocol Last Titration: 04/07/18 06:23 Dose: 25 mcg/kg/min, 19.245 mls/hr Insulin Aspart (Novolog Vial Sliding Scale -) 1 vial SQ Q6HPO [facility]; Protocol Last Admin: 04/07/18 05:41 Dose: 4 units Insulin Detemir (Levemir Vial) 30 units SQ HS [facility] Last Admin: 04/06/18 22:19 Dose: 30 units Lisinopril (Prinivil) 10 mg NGT DAILY [facility] Last Admin: 04/07/18 10:46 Dose: 10 mg Metoprolol Tartrate (Lopressor -) 50 mg NGT BID [facility] Last Admin: 04/07/18 10:46 Dose: 50 mg Ondansetron HCl (Zofran Injection) 4 mg IVPUSH Q6H PRN PRN Reason: NAUSEA AND/OR VOMITING Pantoprazole Sodium (Protonix Iv) 40 mg IVPUSH DAILY [facility] Last Admin: 04/07/18 10:46 Dose: 40 mg Phenytoin Sodium (Dilantin Chewable Tablet -) 100 mg NGT TID [facility] Last Admin: 04/07/18 05:41 Dose: 100 mg Tamsulosin HCl (Flomax -) 0.4 mg PO DAILY [facility] Last Admin: 04/07/18 10:46 Dose: 0.4 mg - Objective Vital Signs: Vital Signs Temperature 99.6 F 04/07/18 06:00 Pulse Rate 74 04/07/18 08:00 Respiratory Rate 20 04/07/18 10:32 Blood Pressure 118/62 04/07/18 08:00 O2 Sat by Pulse Oximetry (%) 100 04/06/18 21:00 Cardiovascular: Yes: Regular Rate and Rhythm Respiratory: Yes: Intubated, Mechanically Ventilated, Rhonchi Gastrointestinal: Yes: Normal Bowel Sounds, Soft Edema: Yes Edema: LLE: Trace, RLE: Trace Labs: CBC, BMP 04/05/18 05:30 04/05/18 05:30 INR, PTT INR 1.19 (0.83-1.09) H 03/27/18 23:30 - ....Imaging EKG: Report Reviewed (Tele: NSR occ [facility]) Problem List - Problems (1) Status post lumbar laminectomy Code(s): Z98.890 - OTHER SPECIFIED POSTPROCEDURAL STATES (2) CAD (coronary artery disease) Code(s): I25.10 - ATHSCL HEART DISEASE OF [place] CORONARY ARTERY W/O ANG PCTRS Qualifiers: Coronary Disease-Associated Artery/Lesion type: [place] artery [place] vs. transplanted heart: [place] heart Associated angina: without angina Qualified Code(s): I25.10 - Atherosclerotic heart disease of [place] coronary artery without angina pectoris (3) Cardiac arrest Code(s): I46.9 - CARDIAC ARREST, CAUSE UNSPECIFIED (4) Encephalopathy acute Code(s): G93.40 - ENCEPHALOPATHY, UNSPECIFIED (5) HLD (hyperlipidemia) Code(s): E78.5 - HYPERLIPIDEMIA, UNSPECIFIED Qualifiers: Hyperlipidemia type: pure hypercholesterolemia Qualified Code(s): E78.00 - Pure hypercholesterolemia, unspecified; E78.0 - Pure hypercholesterolemia (6) HTN (hypertension) Code(s): I10 - ESSENTIAL (PRIMARY) HYPERTENSION Qualifiers: Hypertension type: essential hypertension Qualified Code(s): I10 - Essential (primary) hypertension (7) Hx of CABG Code(s): Z95.1 - PRESENCE OF AORTOCORONARY BYPASS GRAFT (8) Insulin dependent diabetes mellitus Code(s): E11.9 - TYPE 2 DIABETES MELLITUS WITHOUT COMPLICATIONS; Z79.4 - BOBBIN HAULER (CURRENT) USE OF INSULIN (9) Demand ischemia Code(s): I24.8 - OTHER FORMS OF ACUTE ISCHEMIC HEART DISEASE Assessment/Plan 03/28/2018 Echocardiography report noted, normal LV systolic function, with LVEF 0f 55%, walll motion cannot be assessed (upon study review there is abnormal septal motion consistent with prior open heart surgery) no significant valvular pathology, normal RV size and fxn. 03/29/2018 CT suspicious for ischemia left posterior circulation ASSESSMENT: 1. Post cardiopulmonary arrest/pulse-less electrical activity, ventricular tachycardia post resuscitation currently ventilator-dependent 2. Post operative day #11 post L1-S1 laminectomy and T12-S1 posterior instrumentation 3. Anoxic brain injury with evidence of acute/subacute CVA on CT of the head, EEG shows spikes in right temporal lobe 4. CAD post CABG angina pectoris with demand ischemia - troponins have peaked 5. LV diastolic dysfunction with class 0 NYHA classification LV failure 6. HTN 7. DM 8. hypercholesterolemia PLAN: 1. Continue Lopressor 50 bid, lisinopril 10 qd, ASA 81 qd, and Lipitor 20 qd 2. Hold off on Plavix resumption as additional intervention is planned 3. Neurology evaluation appreciated, EEG shows left temporal seizures and diffuse encephelopathy, seizure prophylaxis 4. Hold sedation as tolerated 5. Empiric abx coverage per ID for open wound and fever, C&S NGTD 6. DVT/GI prophylaxis, enteral feeds 7. Will likely need trach/PEG
[2018-04-07] MEDS: PROPOFOL 1,000,000 MCG/100 ML VIAL IVPB SCH ×2 (12:28→17:18)
--- NOTE | 2018-04-07 13:44 | PN ---
Teaching Attending Note Name of Resident: China Randle ATTENDING PHYSICIAN STATEMENT I saw and evaluated the patient. I reviewed the resident's note and discussed the case with the resident. I agree with the resident's findings and plan as documented. SUBJECTIVE: Patient seen and examined in the ICU. Remains intubated, AC Mode of vent, 35% FiO2. No gross change in Neuro exam. No pressors. OBJECTIVE: Intake & Output 04/04/18 04/05/18 04/06/18 04/07/18 23:59 23:59 23:59 23:59 Intake Total 7273 386 6859 Output Total 400 500 900 Balance 1254 -195 1380 Weight 284 lb 13.396 oz 284 lb 9.868 oz 284 lb 9.868 oz 280 lb 3.32 oz Last Vital Signs Temp Pulse Resp BP Pulse Ox 99.9 F H 70 20 128/61 100 04/07/18 10:00 04/07/18 12:00 04/07/18 12:54 04/07/18 12:00 04/07/18 09:00 Active Medications Artificial Tears (Artificial Tears) 1 drop OU BID PRN PRN Reason: DRY EYES Last Admin: 04/03/18 09:55 Dose: 1 drop Aspirin (Asa -) 81 mg PO DAILY [facility] Last Admin: 04/07/18 10:46 Dose: 81 mg Atorvastatin Calcium (Lipitor -) 20 mg NGT HS [facility] Last Admin: 04/06/18 22:17 Dose: 20 mg Chlorhexidine Gluconate (Peridex -) 15 ml MM BID [facility] Last Admin: 04/07/18 10:47 Dose: 15 ml Glycerin (Glycerin Suppository Adult -) 1 each RC DAILY PRN PRN Reason: CONSTIPATION Piperacillin Sod/Tazobactam (Sod 4.5 gm/ Dextrose) 100 mls @ 200 mls/hr IVPB Q8H-IV [facility]; Protocol Last Admin: 04/07/18 10:40 Dose: 200 mls/hr Vancomycin HCl 1,250 mg/ (Dextrose) 250 mls @ 166.667 mls/hr IVPB Q12H [facility]; Protocol Last Admin: 04/07/18 00:04 Dose: 166.667 mls/hr Propofol (Diprivan -) 1,000,000 mcg in 100 mls @ 3.849 mls/hr IVPB TITR [facility]; Protocol Last Admin: 04/07/18 12:28 Dose: 25 mcg/kg/min, 19.245 mls/hr Insulin Aspart (Novolog Vial Sliding Scale -) 1 vial SQ Q6HPO [facility]; Protocol Insulin Detemir (Levemir Vial) 35 units SQ HS [facility] Lisinopril (Prinivil) 10 mg NGT DAILY [facility] Last Admin: 04/07/18 10:46 Dose: 10 mg Metoprolol Tartrate (Lopressor -) 50 mg NGT BID [facility] Last Admin: 04/07/18 10:46 Dose: 50 mg Ondansetron HCl (Zofran Injection) 4 mg IVPUSH Q6H PRN PRN Reason: NAUSEA AND/OR VOMITING Pantoprazole Sodium (Protonix Iv) 40 mg IVPUSH DAILY [facility] Last Admin: 04/07/18 10:46 Dose: 40 mg Phenytoin Sodium (Dilantin Chewable Tablet -) 100 mg NGT TID [facility] Last Admin: 04/07/18 05:41 Dose: 100 mg Tamsulosin HCl (Flomax -) 0.4 mg PO DAILY [facility] Last Admin: 04/07/18 10:46 Dose: 0.4 mg Gen: intubated, poorly responsive (on propofol) Heart: RRR Lung: decreased breath sounds at the bases Abd: soft, nontender Ext: + edema Laboratory Results - last 24 hr 04/06/18 04/06/18 04/07/18 17:06 23:58 05:30 POC Glucometer 302.94304 233.75080 Vancomycin Pre-Dose Phenytoin < 0.4 L 04/07/18 04/07/18 04/07/18 05:39 12:00 12:21 POC Glucometer 208.56207 [phone] Vancomycin Pre-Dose 11.9 L Phenytoin ASSESSMENT AND PLAN: s/p PEA/VTach Cardiopulmonary Arrest Anoxic Encephalopathy / Brain Injury s/p Lumbar Laminectomy CAD s/p CABG +Troponins likely Demand Ischemia LV Systolic/Diastolic Dysfunction HTN DM Hypercholesterolemia CKD - ABX per ID - Sedation vacations to assess mental status - Enteral feeds - DVT/GI prophylaxis - NOK still deciding on further GOC: They are unlikely to agree with a PEG/ Trach and prolonged chronic care. - continue ICU monitoring Dr Hsu Critical care time spent in reviewing chart, evaluating patient and formulating plan 35 min
--- NOTE | 2018-04-07 14:56 | PN ---
Physical Exam: SUBJECTIVE: - No acute events overnight - Spoke to sister Carmen. Tentative plan to extubate early next week. Discussed stopping labs, antibiotics, glucose monitoring at this time, discussed starting a morphine drip now for planned extubation. Per sister, would not like to make any changes at this time. Prefers to continue all medications including insulin but would like to wait to start morphine unless there are clear signs of pain. OK to stop routine labs. OBJECTIVE: Vital Signs Period Temp Pulse Resp BP Sys/Martinez Pulse Ox Last 24 Hr 98.5 F-100 F 69-92 15-24 105-143/50-70 100-100 General: Intubated, sedated HEENT: Eyes closed. RIJ in place. NTG with TF running. Cards: RRR, no murmur appreciated Pulm: Mechanically ventilated. Overbreathing vent to rate in low 20's. Abd: Soft, nondistended Ext: No LE edema. : Jimenez in place, draining freely Neuro: Sedated. No movements noted Laboratory Results - last 24 hr 04/06/18 04/06/18 04/07/18 17:06 23:58 05:30 POC Glucometer [id number] [phone] Vancomycin Pre-Dose Phenytoin < 0.4 L 04/07/18 04/07/18 04/07/18 05:39 12:00 12:21 POC Glucometer 208.90784 [phone] Vancomycin Pre-Dose 11.9 L Phenytoin Active Medications Generic Name Dose Route Start Last Admin Trade Name Freq PRN Reason Stop Dose Admin Artificial Tears 1 drop 03/28/18 07:59 04/03/18 09:55 Artificial Tears OU 1 drop BID PRN Administration DRY EYES Aspirin 81 mg 03/30/18 10:00 04/07/18 10:46 Asa - PO 81 mg DAILY SYLVIA Administration Atorvastatin Calcium 20 mg 03/30/18 22:00 04/06/18 22:17 Lipitor - NGT 20 mg HS SYLVIA Administration Chlorhexidine Gluconate 15 ml 03/30/18 12:30 04/07/18 10:47 Peridex - MM 15 ml BID SYLVIA Administration Glycerin 1 each 03/27/18 21:55 Glycerin Suppository Adult - RC DAILY PRN CONSTIPATION Piperacillin Sod/Tazobactam 100 mls @ 200 mls/hr 03/30/18 12:00 04/07/18 10: 40 Sod 4.5 gm/ Dextrose IVPB 200 mls/hr Q8H-IV SYLVIA Administration Protocol Vancomycin HCl 1,250 mg/ 250 mls @ 166.667 mls/hr 04/02/18 13:00 04/07/18 00: 04 Dextrose IVPB 166.667 mls/hr Q12H SYLVIA Administration Protocol Propofol 1,000,000 mcg in 100 mls @ 3.849 mls/hr 04/03/18 16:15 04/07/18 12: 28 Diprivan - IVPB 25 mcg/kg/min TITR SYLVIA 19.245 mls/hr Administration Protocol 5 MCG/KG/MIN Insulin Aspart 1 vial 04/07/18 13:00 04/07/18 14:11 Novolog Vial Sliding Scale - SQ 6 unit Q6HPO SYLVIA Administration Protocol Insulin Detemir 35 units 04/07/18 22:00 Levemir Vial SQ HS SYLVIA Lisinopril 10 mg 04/02/18 08:25 04/07/18 10:46 Prinivil NGT 10 mg DAILY SYLVIA Administration Metoprolol Tartrate 50 mg 04/02/18 08:25 04/07/18 10:46 Lopressor - NGT 50 mg BID SYLVIA Administration Ondansetron HCl 4 mg 03/27/18 21:56 Zofran Injection IVPUSH Q6H PRN NAUSEA AND/OR VOMITING Pantoprazole Sodium 40 mg 03/28/18 10:30 04/07/18 10:46 Protonix Iv IVPUSH 40 mg DAILY SYLVIA Administration Phenytoin Sodium 100 mg 04/03/18 14:30 04/07/18 14:12 Dilantin Chewable Tablet - NGT 100 mg TID SYLVIA Administration Tamsulosin HCl 0.4 mg 03/28/18 10:00 04/07/18 10:46 Flomax - PO 0.4 mg DAILY SYLVIA Administration ASSESSMENT/PLAN: Marco Land is a 62yo man with a PMH of CAD s/p CABG, HTN, HLD, IDDM, chronic back pain due to spinal stnosis with rapid neurological decline. He underwent cardiac arrest during a planned surgery on 03/27. ROSC was achieved after 26 minutes of CPR. He was transferred to the ICU and underwent cooling protocol. Since his arrest, Mr Land has had ongoing signs of anoxic brain injury and has not shown any purposeful activity. There is no indication that his neurologic status is improving. He remains in critical condition in the ICU. His family tentatively plans to transition to comfort care early next week. Neuro: - CT head on 03/29 and 03/31 with anoxic brain injury and infarct in the left occipital lobe - Off sedation as tolerated. Propofol as needed - PRN morphine 2mg Q3hr for discomfort - Per family, will wait to start morphine drip until closer to extubation next week. May start if he appears in pain. - EEG without status epilepticus, but high seizure potential, encephalopathy. Continue dilantin 100mg TID per neurology. - Neuro following. CV: - Intraoperative cardiac arrest, 26 min CPR with ROSC and completion of cooling protocol. - H/o CAD, CABG, HTN. Continue metoprolol, lisinopril 5mg daily, ASA 81 via NGT - Cardiology following - Echo completed after arrest relatively normal, EF 55%, no right heart strain, no wall motion abnormalities - Elevated trops post-code, trended until decreasing Pulm: - Mechanically ventilated - Current settings SIMV, 450cc, 35%, PEEP 5, rate 12. - Continues to breath over vent - Weaning trials as tolerated - Family does not believe Mr Land would wish to have a trach. Plan to extubate next week, tentatively Tuesday. - IS 10x per hour Heme: - Daily ASA. Continue to hold plavix per cards - Hgb had been stable, no longer checking daily labs GI: - NGT in place - Tolerating tube feeds - Rectal tube to keep back wound clean Renal: - Jimenez in place, adequate UOP - Home flomax via NGT ID: - Empiric vanc/zosyn per Dr Álvarez for previous episodes of fever, initial leukocytosis, surgical wound - Cultures negative Endo: - h/o IDDM - Levamir increased to 35u, continue ISS Q6hr Musc: - Soft wrist restraints to prevent pulling ETT or lines - Monitoring back incision per nursing. No active bleeding - Dry dressing to be replaced/reinforced as needed for drainage. - Will contact Dr Rodriguez as needed if active bleeding is suspected PPx: - SQH, SCD's - PPI daily FEN: - TF at goal (promote, goal 1750cc daily) - SLIV. 10cc free water flush per hour - Replete lytes PRN Dispo: - Critically ill patient requiring ongoing ICU-level care - Family does not plan to - Palliative consulted and working with the family Code status: DNR Seen and discussed with Dr Hsu. China Randle PGY1 Visit type - Emergency Visit Emergency Visit: No - New Patient This patient is new to me today: No - Critical Care Critical Care patient: Yes Total Critical Care Time (in minutes): 45 Critical Care Statement: The care of this patient involved high complexity decision making to prevent further life threatening deterioration of the patient 's condition and/or to evaluate & treat vital organ system(s) failure or risk of failure.
--- NOTE | 2018-04-07 15:23 | PN ---
Teaching Attending Note Name of Resident: Isabella Velazquez ATTENDING PHYSICIAN STATEMENT I saw and evaluated the patient. I reviewed the resident's note and discussed the case with the resident. I agree with the resident's findings and plan as documented with exceptions below. SUBJECTIVE: Patient seen and examined. intubated, sedated. OBJECTIVE: Vital Signs Period Temp Pulse Resp BP Sys/Martinez Pulse Ox Last 24 Hr 98.5 F-100 F 69-92 15-24 105-143/50-70 100-100 Intake & Output 04/04/18 04/05/18 04/06/18 04/07/18 23:59 23:59 23:59 23:59 Intake Total 5550 651 7240 Output Total 400 500 900 500 Balance 1254 -195 1380 -500 Weight 284 lb 13.396 oz 284 lb 9.868 oz 284 lb 9.868 oz 280 lb 3.32 oz General: intubated sedated, biting on vent when attempting sternal rub, no eye opening Chest: occasional rales Abdomen:soft, obese Extremities: unchanged edema Active Medications Artificial Tears (Artificial Tears) 1 drop OU BID PRN PRN Reason: DRY EYES Last Admin: 04/03/18 09:55 Dose: 1 drop Aspirin (Asa -) 81 mg PO DAILY SYLVIA Last Admin: 04/07/18 10:46 Dose: 81 mg Atorvastatin Calcium (Lipitor -) 20 mg NGT HS SYLVIA Last Admin: 04/06/18 22:17 Dose: 20 mg Chlorhexidine Gluconate (Peridex -) 15 ml MM BID SYLVIA Last Admin: 04/07/18 10:47 Dose: 15 ml Glycerin (Glycerin Suppository Adult -) 1 each RC DAILY PRN PRN Reason: CONSTIPATION Piperacillin Sod/Tazobactam (Sod 4.5 gm/ Dextrose) 100 mls @ 200 mls/hr IVPB Q8H-IV SYLVIA; Protocol Last Admin: 04/07/18 10:40 Dose: 200 mls/hr Vancomycin HCl 1,250 mg/ (Dextrose) 250 mls @ 166.667 mls/hr IVPB Q12H SYLVIA; Protocol Last Admin: 04/07/18 00:04 Dose: 166.667 mls/hr Propofol (Diprivan -) 1,000,000 mcg in 100 mls @ 3.849 mls/hr IVPB TITR SYLVIA; Protocol Last Admin: 04/07/18 12:28 Dose: 25 mcg/kg/min, 19.245 mls/hr Insulin Aspart (Novolog Vial Sliding Scale -) 1 vial SQ Q6HPO [facility]; Protocol Last Admin: 04/07/18 14:11 Dose: 6 unit Insulin Detemir (Levemir Vial) 35 units SQ HS [facility] Lisinopril (Prinivil) 10 mg NGT DAILY [facility] Last Admin: 04/07/18 10:46 Dose: 10 mg Metoprolol Tartrate (Lopressor -) 50 mg NGT BID [facility] Last Admin: 04/07/18 10:46 Dose: 50 mg Ondansetron HCl (Zofran Injection) 4 mg IVPUSH Q6H PRN PRN Reason: NAUSEA AND/OR VOMITING Pantoprazole Sodium (Protonix Iv) 40 mg IVPUSH DAILY [facility] Last Admin: 04/07/18 10:46 Dose: 40 mg Phenytoin Sodium (Dilantin Chewable Tablet -) 100 mg NGT TID [facility] Last Admin: 04/07/18 14:12 Dose: 100 mg Tamsulosin HCl (Flomax -) 0.4 mg PO DAILY [facility] Last Admin: 04/07/18 10:46 Dose: 0.4 mg Laboratory Results - last 24 hr 04/06/18 04/06/18 04/07/18 17:06 23:58 05:30 POC Glucometer 302.26266 [phone] Vancomycin Pre-Dose Phenytoin < 0.4 L 04/07/18 04/07/18 04/07/18 05:39 12:00 12:21 POC Glucometer 208.39457 [phone] Vancomycin Pre-Dose 11.9 L Phenytoin Microbiology 04/02/18 15:10 Blood - Peripheral Venous Blood Culture - Final NO GROWTH AFTER 5 DAYS INCUBATION 04/02/18 15:15 Blood - Peripheral Venous Blood Culture - Final NO GROWTH AFTER 5 DAYS INCUBATION 04/02/18 16:15 Sputum - Endotrachea Suction/Ventilator Gram Stain - Final 04/02/18 16:15 Sputum - Endotrachea Suction/Ventilator Sputum Culture - Final 04/02/18 15:00 Urine - Urine - Catheterized Urine Culture - Final NO GROWTH OBTAINED 03/29/18 17:30 Blood - Central Line Blood Culture - Final NO GROWTH AFTER 5 DAYS INCUBATION 03/29/18 17:30 Blood - Central Line Blood Culture - Final NO GROWTH AFTER 5 DAYS INCUBATION 03/31/18 15:30 Sputum - Endotrachea Suction/Ventilator Gram Stain - Final 03/31/18 15:30 Sputum - Endotrachea Suction/Ventilator Sputum Culture - Final NORMAL RESPIRATORY ZULLY 03/30/18 11:00 Back Gram Stain - Final 03/30/18 11:00 Back Wound Culture - Final NO AEROBIC OR ANAEROBIC GROWTH OBTAINED. 03/29/18 17:30 Urine - Urine Jimenez Urine Culture - Final NO GROWTH OBTAINED ASSESSMENT AND PLAN: 62yo M with PMH Severe stenosis L2-L3 and L3-L4, HTN, DM and CAD S/p CABG presented for scheduled laminectomy complicated by cardiac arrest. -s/p cardiac arrest -Acute toxic metabolic encephalopathy -Acute hypoxic respiratory failure -Fever -HTN -DM Plan: s/p hypothermia protocol. Vent management per ICU. Propofol resumed. Cardiology/neurology input appreciated. EEG with temporal spikes per neurology, on phenytoin. Surgical management per Dr. Rodriguez. Zosyn/vanco day 10, Cultures neg so far. Abx per ID. BP Improved, titrate meds as needed. BGM, ISS DVTPPX per spine DNR Family unlikely to agree to trach/PEG and predatory animal exterminator care. Continue to follow for goals of care MICU monitoring. Guarded prognosis. total critical care time spent 35 min.
--- NOTE | 2018-04-07 16:16 | PN ---
Physical Exam: SUBJECTIVE: Patient seen and examined at bedside this morning. Sedated and intubated. OBJECTIVE: Vital Signs Period Temp Pulse Resp BP Sys/Martinez Pulse Ox Last 24 Hr 98.5 F-100 F 69-92 15-24 105-143/50-70 100-100 GENERAL: The patient is intubated. minimally sedated. Eyes closed. LUNGS: Coarse breath sounds. HEART: Regular rate and rhythm, S1, S2 without murmur, rub or gallop. ABDOMEN: Soft,obese, nondistended. EXTREMITIES: 2+ pulses, warm, well-perfused, no edema. Laboratory Results - last 24 hr 04/06/18 04/06/18 04/07/18 17:06 23:58 05:30 POC Glucometer [id number] [phone] Vancomycin Pre-Dose Phenytoin < 0.4 L 04/07/18 04/07/18 04/07/18 05:39 12:00 12:21 POC Glucometer 208.15069 [phone] Vancomycin Pre-Dose 11.9 L Phenytoin Active Medications Generic Name Dose Route Start Last Admin Trade Name Freq PRN Reason Stop Dose Admin Artificial Tears 1 drop 03/28/18 07:59 04/03/18 09:55 Artificial Tears OU 1 drop BID PRN Administration DRY EYES Aspirin 81 mg 03/30/18 10:00 04/07/18 10:46 Asa - PO 81 mg DAILY SYLVIA Administration Atorvastatin Calcium 20 mg 03/30/18 22:00 04/06/18 22:17 Lipitor - NGT 20 mg HS SYLVIA Administration Chlorhexidine Gluconate 15 ml 03/30/18 12:30 04/07/18 10:47 Peridex - MM 15 ml BID SYLVIA Administration Glycerin 1 each 03/27/18 21:55 Glycerin Suppository Adult - RC DAILY PRN CONSTIPATION Piperacillin Sod/Tazobactam 100 mls @ 200 mls/hr 03/30/18 12:00 04/07/18 10: 40 Sod 4.5 gm/ Dextrose IVPB 200 mls/hr Q8H-IV SYLVIA Administration Protocol Vancomycin HCl 1,250 mg/ 250 mls @ 166.667 mls/hr 04/02/18 13:00 04/07/18 00: 04 Dextrose IVPB 166.667 mls/hr Q12H SYLVIA Administration Protocol Propofol 1,000,000 mcg in 100 mls @ 3.849 mls/hr 04/03/18 16:15 04/07/18 12: 28 Diprivan - IVPB 25 mcg/kg/min TITR SYLVIA 19.245 mls/hr Administration Protocol 5 MCG/KG/MIN Insulin Aspart 1 vial 04/07/18 13:00 04/07/18 14:11 Novolog Vial Sliding Scale - SQ 6 unit Q6HPO SYLVIA Administration Protocol Insulin Detemir 35 units 04/07/18 22:00 Levemir Vial SQ HS SYLVIA Lisinopril 10 mg 04/02/18 08:25 04/07/18 10:46 Prinivil NGT 10 mg DAILY SYLVIA Administration Metoprolol Tartrate 50 mg 04/02/18 08:25 04/07/18 10:46 Lopressor - NGT 50 mg BID SYLVIA Administration Ondansetron HCl 4 mg 03/27/18 21:56 Zofran Injection IVPUSH Q6H PRN NAUSEA AND/OR VOMITING Pantoprazole Sodium 40 mg 03/28/18 10:30 04/07/18 10:46 Protonix Iv IVPUSH 40 mg DAILY SYLVIA Administration Phenytoin Sodium 100 mg 04/03/18 14:30 04/07/18 14:12 Dilantin Chewable Tablet - NGT 100 mg TID SYLVIA Administration Tamsulosin HCl 0.4 mg 03/28/18 10:00 04/07/18 10:46 Flomax - PO 0.4 mg DAILY SYLVIA Administration Imaging Echo - LV systolic function is grossly normal. EF = 55%. Regional wall motion abnormalities cannot be excluded due to limited visualization. There is trace mitral regurgitation. There is trace tricuspid regurgitation. There is mild pulmonary hypertension. Head CT w/o contrast (03/31/18) - Evolving left posterior cerebral artery territory acute/subacute infarct. Otherwise, no gross mass lesion or intracranial hemorrhage are identified. There is no shift of the midline structures or evidence of inferior herniation. Poor visualization of the ye- white matter junction. There is also paucity of the cortical sulci the patient' s age. Cannot rule out the brain swelling/edema. The basal cisterns are not effaced. Head CT w/o contrast (03/29/18) - Slightly limited examination, as described above in particular evaluation of the inferior aspect of the posterior fossa. There is suggestion of faint low-attenuation density in the left occipital lobe , medially. An acute infarct cannot be excluded. No gross intracranial hemorrhage is seen. CXR (03/31/18) - Since 03/31/18 at 0506 hours, the endotracheal tube, right jugular line and mediastinal clips and sutures persist. Tubing projects over the chest. There is a large heart, unfolded aorta and prominent central markings. CXR (03/31/18) - Since the prior study of 03/30/18 at 1030 hours, there is slight increase in lung markings at the bases. The endotracheal tube, nasogastric tube and right jugular line persist. CXR (03/27/18) - Since the earlier study of 03/16/2018, the endotracheal tube has been inserted and the tip is well above the leroy. Right jugular line is been inserted and the tip is in the SVC's junction with the right atrium. There are sternal sutures with weak inspiration, increased central markings and prominent mediastinum. There may be some fluid at the right base. There is no sign of a pneumothorax. Microbiology 03/30/18 11:00 Back Gram Stain - Final 03/30/18 11:00 Back Wound Culture - Preliminary NO GROWTH OBTAINED AFTER 24 HOURS INCUBATION, REINCUBATED. 03/29/18 17:30 Urine - Urine Jimenez Urine Culture - Final NO GROWTH OBTAINED 03/29/18 17:30 Blood - Central Line Blood Culture - Preliminary NO GROWTH OBTAINED AFTER 24 HOURS, INCUBATION TO CONTINUE FOR 4 DAYS. 03/29/18 17:30 Blood - Central Line Blood Culture - Preliminary NO GROWTH OBTAINED AFTER 24 HOURS, INCUBATION TO CONTINUE FOR 4 DAYS. ASSESSMENT/PLAN: Patient is a 62 year old male with past medical history of chronic low back pain , CAD s/p CABG on plavix (held prior to surgery), HTN, HLD, DM, and BPH presented as outpatient for planned L1-S1 laminectomy and T12-S1 posterior instrumented spinal fusion. During the surgery, patient became pulseless, ACLS protocol initiated, and ROSC achieved. #ROSC s/p cardiopulmonary arrest -Hypothermia protocol finished. -Cardiology (Dr. Bush) consulted. Recommendations appreciated. -IV Metoprolol switch to PO Lopressor BID via NGT. -Lisinopril 5mg daily and ASA 81mg started through NGT -hold off on Plavix resumption -Statins unless contraindicated. -Echocardiography - EF 55%, no right heart strain, no wall motion abnormalities -Mechanically ventilated.Management as per ICU #Anoxic brain injury -Neurology consulted. Recommendations appreciated. -Minimal propofol. Off sedation as tolerated. -Vecuronium drip and fentanyl drip discontinued. -Repeat head CT - evolving Left EQUIPMENT WASHER territory acute/subacute infarct. No gross mass lesion or ICH. No shift of midline structures or evidence of inferior herniation. Poor visualization of ye-white matter junction. There is paucity of cortical sulci. Cannot r/o brain swelling/edema. Basal cisterns are not effaced. -EEG - This EEG is abnormal. These findings are nonspecific and may be seen with diffuse encephalopathy of metabolic, degenerative or vascular origin. Localized sharp wave activity was noted in the left temporal area suggestive of epiliptiform disturbance. #Spinal Wound -Mid back incision with skin sutures but layered closure not completed due to cardiac arrest -Monitor wound and daily CBC. -Surgical management of wound as per Dr. Rodriguez. #Leukocytosis: -Likely reactive -ID consulted. Recommendations appreciated. -Empiric Vancomycin and Zosyn day 6 -will continue to monitor #CAD s/p CABG -Continue ASA -hold home medication Plavix -will monitor #Hypertension -Metoprolol resumed. -Will monitor BP #DM -Discontinued insulin drip -Sliding scale implemented q4h -BGM q4h #MIAN: resolved -likely 2/2 pre-renal from poor perfusion during the arrest -Jimenez catheter placed -urine lytes ordered. -will monitor renal function #FEN -IV NS @ 125 ml/hr -Tube feeding (high protein, low kcal) -Routine bmp monitoring, will replete lytes as needed. #Prophylaxis -TEDs, SCDs #Disposition -ICU for close monitoring -Family meeting held for [facility]. Sisters signed DNR. -As per ICU team, discussed with family on stopping labs, antibiotics, glucose monitoring at this time, discussed starting a morphine drip now for planned extubation. Per sister, would not like to make any changes at this time. Prefers to continue all medications including insulin but would like to wait to start morphine unless there are clear signs of pain. OK to stop routine labs -For compassionate weaning on Tuesday Visit type - Emergency Visit Emergency Visit: Yes ED Registration Date: 03/27/18 Care time: The patient presented to the Emergency Department on the above date and was hospitalized for further evaluation of their emergent condition. - New Patient This patient is new to me today: Yes Date on this admission: 04/07/18 - Critical Care Critical Care patient: Yes Total Critical Care Time (in minutes): 35 Critical Care Statement: The care of this patient involved high complexity decision making to prevent further life threatening deterioration of the patient 's condition and/or to evaluate & treat vital organ system(s) failure or risk of failure.
[2018-04-07] MEDS: ATORVASTATIN CA 20 MG TABLET (FP) NGT SCH (21:33)
[2018-04-07] MEDS: INSULIN (LEVEMIR) 100 UNITS/ML UNITS SQ SCH (21:33)
[2018-04-08] MEDS: INSULIN SLIDING SCALE (NOVOLOG) 1 VIAL SQ SCH ×4 (00:11→17:19)
[2018-04-08] MEDS: VANCOMYCIN 1,250 MG in DEXTROSE 5%-WATER - 250 ML IVPB SCH ×2 (01:11→12:13)
[2018-04-08] MEDS: PIPERACILLIN/TAZOB 4.5 GM 4.5 GM in DEXTROSE 5%-WATER 100 ML IVPB SCH ×3 (02:45→17:18)
[2018-04-08] MEDS: PHENYTOIN 50 MG TAB.CHEW NGT SCH ×3 (06:20→22:17)
[2018-04-08] MEDS ORDERED: PIPERACILLIN/TAZOBACTAM 4.5 GM VIAL IVPB ONE ×2 (10:03→17:12)
[2018-04-08] MEDS ORDERED: DEXTROSE 5%-WATER 100 ML IVPB ONE ×2 (10:03→17:12)
[2018-04-08] MEDS: PANTOPRAZOLE SODIUM 40 MG VIAL IVPUSH SCH (10:09)
[2018-04-08] MEDS: PROPOFOL 1,000,000 MCG/100 ML VIAL IVPB SCH ×2 (10:10→17:29)
[2018-04-08] MEDS: METOPROLOL TARTRATE 50 MG TABLET (FP) NGT SCH ×2 (10:11→22:17)
[2018-04-08] MEDS: ASPIRIN 81 MG CHEWABLE TABLETS PO SCH (10:12)
[2018-04-08] MEDS: CHLORHEXIDINE GLUCONATE 0.12% 15ML CUP MM SCH ×2 (10:13→22:17)
[2018-04-08] MEDS: LISINOPRIL 5 MG TABLET (FP) NGT SCH (10:35)
--- NOTE | 2018-04-08 11:10 | PN ---
Teaching Attending Note Name of Resident: Fatmata Dooley ATTENDING PHYSICIAN STATEMENT I saw and evaluated the patient. I reviewed the resident's note and discussed the case with the resident. I agree with the resident's findings and plan as documented. SUBJECTIVE: Patient seen and examined in the ICU. Remains intubated, AC Mode of vent, 35% FiO2. No gross change in Neuro exam. No pressors. OBJECTIVE: Intake & Output 04/05/18 04/06/18 04/07/18 04/08/18 23:59 23:59 23:59 23:59 Intake Total 305 2280 1390 Output Total 500 900 500 Balance -195 1380 890 Weight 284 lb 9.868 oz 284 lb 9.868 oz 280 lb 3.32 oz 268 lb 4.841 oz Last Vital Signs Temp Pulse Resp BP Pulse Ox 98.7 F 76 24 H 165/71 100 04/08/18 09:52 04/08/18 09:52 04/08/18 09:52 04/08/18 09:52 04/07/18 21:00 Active Medications Artificial Tears (Artificial Tears) 1 drop OU BID PRN PRN Reason: DRY EYES Last Admin: 04/03/18 09:55 Dose: 1 drop Aspirin (Asa -) 81 mg PO DAILY SYLVIA Last Admin: 04/08/18 10:12 Dose: 81 mg Atorvastatin Calcium (Lipitor -) 20 mg NGT HS SYLVIA Last Admin: 04/07/18 21:33 Dose: 20 mg Chlorhexidine Gluconate (Peridex -) 15 ml MM BID SYLVIA Last Admin: 04/08/18 10:13 Dose: 15 ml Glycerin (Glycerin Suppository Adult -) 1 each RC DAILY PRN PRN Reason: CONSTIPATION Piperacillin Sod/Tazobactam (Sod 4.5 gm/ Dextrose) 100 mls @ 200 mls/hr IVPB Q8H-IV [facility]; Protocol Last Admin: 04/08/18 10:11 Dose: 200 mls/hr Vancomycin HCl 1,250 mg/ (Dextrose) 250 mls @ 166.667 mls/hr IVPB Q12H [facility]; Protocol Last Admin: 04/08/18 01:11 Dose: 166.667 mls/hr Propofol (Diprivan -) 1,000,000 mcg in 100 mls @ 3.849 mls/hr IVPB TITR [facility]IA; Protocol Last Admin: 04/08/18 10:10 Dose: 25 mcg/kg/min, 19.245 mls/hr Insulin Aspart (Novolog Vial Sliding Scale -) 1 vial SQ Q6HPO [facility]; Protocol Last Admin: 04/08/18 06:20 Dose: 10 unit Insulin Detemir (Levemir Vial) 35 units SQ HS [facility] Last Admin: 04/07/18 21:33 Dose: 35 units Lisinopril (Prinivil) 10 mg NGT DAILY [facility] Last Admin: 04/08/18 10:35 Dose: 10 mg Metoprolol Tartrate (Lopressor -) 50 mg NGT BID [facility] Last Admin: 04/08/18 10:11 Dose: 50 mg Ondansetron HCl (Zofran Injection) 4 mg IVPUSH Q6H PRN PRN Reason: NAUSEA AND/OR VOMITING Pantoprazole Sodium (Protonix Iv) 40 mg IVPUSH DAILY [facility] Last Admin: 04/08/18 10:09 Dose: 40 mg Phenytoin Sodium (Dilantin Chewable Tablet -) 100 mg NGT TID [facility] Last Admin: 04/08/18 06:20 Dose: 100 mg Tamsulosin HCl (Flomax -) 0.4 mg PO DAILY [facility] Last Admin: 04/07/18 10:46 Dose: 0.4 mg Gen: intubated, poorly responsive (on propofol) Heart: RRR Lung: decreased breath sounds at the bases Abd: soft, nontender Ext: + edema Laboratory Results - last 24 hr 04/07/18 04/07/18 04/07/18 05:39 12:00 12:21 POC Glucometer 208.57606 [phone] Vancomycin Pre-Dose 11.9 L 04/07/18 04/08/18 04/08/18 17:07 00:03 06:17 POC Glucometer 226.62842 283.16139 [phone] Vancomycin Pre-Dose ASSESSMENT AND PLAN: s/p PEA/VTach Cardiopulmonary Arrest Anoxic Encephalopathy / Brain Injury s/p Lumbar Laminectomy CAD s/p CABG +Troponins likely Demand Ischemia LV Systolic/Diastolic Dysfunction HTN DM Hypercholesterolemia CKD - ABX per ID - Sedation vacations to assess mental status - Enteral feeds - DVT/GI prophylaxis - NOK still deciding on further GOC: They are unlikely to agree with a PEG/ Trach and prolonged chronic care. Potential plan for compassionate extubation mid week. - continue ICU monitoring Dr Hsu Critical care time spent in reviewing chart, evaluating patient and formulating plan 35 min
--- NOTE | 2018-04-08 11:13 | PN ---
Progress Note, Physician History of Present Illness: Sedated on ventilator Not responsive Afebrile Cultures no growth - Current Medication List Current Medications: Active Medications Artificial Tears (Artificial Tears) 1 drop OU BID PRN PRN Reason: DRY EYES Last Admin: 04/03/18 09:55 Dose: 1 drop Aspirin (Asa -) 81 mg PO DAILY [facility] Last Admin: 04/08/18 10:12 Dose: 81 mg Atorvastatin Calcium (Lipitor -) 20 mg NGT HS [facility] Last Admin: 04/07/18 21:33 Dose: 20 mg Chlorhexidine Gluconate (Peridex -) 15 ml MM BID [facility] Last Admin: 04/08/18 10:13 Dose: 15 ml Glycerin (Glycerin Suppository Adult -) 1 each RC DAILY PRN PRN Reason: CONSTIPATION Piperacillin Sod/Tazobactam (Sod 4.5 gm/ Dextrose) 100 mls @ 200 mls/hr IVPB Q8H-IV [facility]; Protocol Last Admin: 04/08/18 10:11 Dose: 200 mls/hr Vancomycin HCl 1,250 mg/ (Dextrose) 250 mls @ 166.667 mls/hr IVPB Q12H [facility]; Protocol Last Admin: 04/08/18 01:11 Dose: 166.667 mls/hr Propofol (Diprivan -) 1,000,000 mcg in 100 mls @ 3.849 mls/hr IVPB TITR [facility]; Protocol Last Admin: 04/08/18 10:10 Dose: 25 mcg/kg/min, 19.245 mls/hr Insulin Aspart (Novolog Vial Sliding Scale -) 1 vial SQ Q6HPO [facility]; Protocol Last Admin: 04/08/18 06:20 Dose: 10 unit Insulin Detemir (Levemir Vial) 35 units SQ [facility] Last Admin: 04/07/18 21:33 Dose: 35 units Lisinopril (Prinivil) 10 mg NGT DAILY [facility] Last Admin: 04/08/18 10:35 Dose: 10 mg Metoprolol Tartrate (Lopressor -) 50 mg NGT BID [facility] Last Admin: 04/08/18 10:11 Dose: 50 mg Ondansetron HCl (Zofran Injection) 4 mg IVPUSH Q6H PRN PRN Reason: NAUSEA AND/OR VOMITING Pantoprazole Sodium (Protonix Iv) 40 mg IVPUSH DAILY [facility] Last Admin: 04/08/18 10:09 Dose: 40 mg Phenytoin Sodium (Dilantin Chewable Tablet -) 100 mg NGT TID [facility] Last Admin: 04/08/18 06:20 Dose: 100 mg Tamsulosin HCl (Flomax -) 0.4 mg PO DAILY [facility] Last Admin: 04/07/18 10:46 Dose: 0.4 mg - Objective Vital Signs: Vital Signs Temperature 98.7 F 04/08/18 09:52 Pulse Rate 76 04/08/18 09:52 Respiratory Rate 28 H 04/08/18 11:10 Blood Pressure 165/71 04/08/18 09:52 O2 Sat by Pulse Oximetry (%) 100 04/07/18 21:00 Constitutional: Yes: Obese Cardiovascular: Yes: Regular Rate and Rhythm, S1, S2 Respiratory: Yes: Mechanically Ventilated Gastrointestinal: Yes: Normal Bowel Sounds, Soft. No: Tenderness Edema: Yes Labs: CBC, BMP 04/05/18 05:30 04/05/18 05:30 INR, PTT INR 1.19 (0.83-1.09) H 03/27/18 23:30 Assessment/Plan S/P cardiopulmonary arrest Fever/ leukocytosis R/O sepsis Diabetes mellitus S/P laminectomy continue empiric zosyn/ vancomycin ventilatory/ hemodynamic support Prognosis guarded
[2018-04-08] MEDS ORDERED: PT OWN MED DRAWER 7, Y5N ONE ×3 (11:20→17:35)
[2018-04-08] MEDS ORDERED: MORPHINE 100 MG in SODIUM CHLORIDE 98 ML IVPB SCH (11:45)
--- NOTE | 2018-04-08 11:48 | PN ---
Physical Exam: SUBJECTIVE: Patient seen and examined; intubated, propofol restarted due to patient bucking vent and hypertension. Still no response to stimuli. Eye opening. +cough reflex. OBJECTIVE: Vital Signs Period Temp Pulse Resp BP Sys/Martinez Pulse Ox Last 24 Hr 98.5 F-99.6 F 67-77 12-28 105-165/51-74 100-100 GENERAL: This obese male is sedated intubated. LUNGS: Breath sounds equal, clear to auscultation bilaterally, no wheezes, no crackles, no accessory muscle use. HEART: Regular rate and rhythm, S1, S2 without murmur, rub or gallop. ABDOMEN: Soft, nontender, nondistended, normoactive bowel sounds, no guarding, no rebound, no hepatosplenomegaly, no masses. EXTREMITIES: 2+ pulses, warm, NEUROLOGICAL: no response to verbal to tactile stimuli SKIN: Warm, dry, normal turgor, no rashes or lesions noted Laboratory Results - last 24 hr 04/07/18 04/07/18 04/07/18 05:39 12:00 12:21 POC Glucometer 208.29446 [phone] Vancomycin Pre-Dose 11.9 L 04/07/18 04/08/18 04/08/18 17:07 00:03 06:17 POC Glucometer 226.44743 283.28318 301.08070 Vancomycin Pre-Dose Active Medications Generic Name Dose Route Start Last Admin Trade Name Freq PRN Reason Stop Dose Admin Artificial Tears 1 drop 03/28/18 07:59 04/03/18 09:55 Artificial Tears OU 1 drop BID PRN Administration DRY EYES Aspirin 81 mg 03/30/18 10:00 04/08/18 10:12 Asa - PO 81 mg DAILY [facility] Administration Atorvastatin Calcium 20 mg 03/30/18 22:00 04/07/18 21:33 Lipitor - NGT 20 mg HS [facility] Administration Chlorhexidine Gluconate 15 ml 03/30/18 12:30 04/08/18 10:13 Peridex - MM 15 ml BID [facility] Administration Glycerin 1 each 03/27/18 21:55 Glycerin Suppository Adult - RC DAILY PRN CONSTIPATION Piperacillin Sod/Tazobactam 100 mls @ 200 mls/hr 03/30/18 12:00 04/08/18 10: 11 Sod 4.5 gm/ Dextrose IVPB 200 mls/hr Q8H-IV [facility] Administration Protocol Vancomycin HCl 1,250 mg/ 250 mls @ 166.667 mls/hr 04/02/18 13:00 04/08/18 01: 11 Dextrose IVPB 166.667 mls/hr Q12H [facility] Administration Protocol Propofol 1,000,000 mcg in 100 mls @ 3.849 mls/hr 04/03/18 16:15 04/08/18 10: 10 Diprivan - IVPB 25 mcg/kg/min TITR [facility] 19.245 mls/hr Administration Protocol 5 MCG/KG/MIN Morphine Sulfate 100 mg/ 100 mls @ 1 mls/hr 04/08/18 11:45 Sodium Chloride IVPB TITR [facility] Protocol 1 MG/HR Insulin Aspart 1 vial 04/07/18 13:00 04/08/18 06:20 Novolog Vial Sliding Scale - SQ 10 unit Q6HPO [facility] Administration Protocol Insulin Detemir 35 units 04/07/18 22:00 04/07/18 21:33 Levemir Vial SQ 35 units HS [facility] Administration Lisinopril 10 mg 04/02/18 08:25 04/08/18 10:35 Prinivil NGT 10 mg DAILY [facility] Administration Metoprolol Tartrate 50 mg 04/02/18 08:25 04/08/18 10:11 Lopressor - NGT 50 mg BID [facility] Administration Ondansetron HCl 4 mg 03/27/18 21:56 Zofran Injection IVPUSH Q6H PRN NAUSEA AND/OR VOMITING Pantoprazole Sodium 40 mg 03/28/18 10:30 04/08/18 10:09 Protonix Iv IVPUSH 40 mg DAILY [facility] Administration Phenytoin Sodium 100 mg 04/03/18 14:30 04/08/18 06:20 Dilantin Chewable Tablet - NGT 100 mg TID [facility] Administration Tamsulosin HCl 0.4 mg 03/28/18 10:00 04/07/18 10:46 Flomax - PO 0.4 mg DAILY [facility] Administration ASSESSMENT/PLAN: This is a 62 year old male presented to the hospital for lumbar laminectomy, s/ p cardiac arrest during procedure, now with anoxic brain injury, intubated on sedation. Not on pressers. #Neurology: -with anoxic brain injury s/p cardiac arrest -when off sedation; not arousable/non responsive to stimuli; gets hypertensive -cont sedation vacations -eeg done; no seizure activity; will continue empiric AE -appreciate neuro #Cardio: -s/p cardiac arrest Vtach/PEA -tachycardia; rate control prn -hypertensionl; cont lisinopril -cab s/p cabg; cont asa -+troponins; demand ischemia -CHF; no signs of current overload #Pulm: -intubated; mech vent; FiO2 35%; PEEP 5 #GI: -cont tube feeds #Renal : -ckd: stable -U/O + #Endocrine: -DMII; cont insulin ss and sq #ID: -cont antibiotics for emipiric treatment for surgical wound site GI/DVT ppl as per family no more lab draws; GOC; paln to extubate and make comfort measures on ; spoke with both sisters this morning about adding a morphine drip for pain and discomfort Visit type - Emergency Visit Emergency Visit: Yes ED Registration Date: 03/27/18 Care time: The patient presented to the Emergency Department on the above date and was hospitalized for further evaluation of their emergent condition. - New Patient This patient is new to me today: Yes Date on this admission: 04/08/18 - Critical Care Critical Care patient: Yes Total Critical Care Time (in minutes): 35 Critical Care Statement: The care of this patient involved high complexity decision making to prevent further life threatening deterioration of the patient 's condition and/or to evaluate & treat vital organ system(s) failure or risk of failure.
--- NOTE | 2018-04-08 12:00 | PN ---
Physical Exam: SUBJECTIVE: Patient seen and examined at bedside this morning. Patient remains sedated and intubated. OBJECTIVE: Vital Signs Period Temp Pulse Resp BP Sys/Martinez Pulse Ox Last 24 Hr 98.5 F-99.6 F 67-77 12-28 105-165/51-74 100-100 GENERAL: The patient is intubated. minimally sedated. Eyes closed. LUNGS: Coarse breath sounds. HEART: Regular rate and rhythm, S1, S2 without murmur, rub or gallop. ABDOMEN: Soft,obese, nondistended. EXTREMITIES: 2+ pulses, warm, well-perfused, +peripheral edema Laboratory Results - last 24 hr 04/07/18 04/07/18 04/07/18 05:39 12:00 12:21 POC Glucometer 208.59772 [phone] Vancomycin Pre-Dose 11.9 L 04/07/18 04/08/18 04/08/18 17:07 00:03 06:17 POC Glucometer 226.95089 283.87798 [phone] Vancomycin Pre-Dose Active Medications Generic Name Dose Route Start Last Admin Trade Name Freq PRN Reason Stop Dose Admin Artificial Tears 1 drop 03/28/18 07:59 04/03/18 09:55 Artificial Tears OU 1 drop BID PRN Administration DRY EYES Aspirin 81 mg 03/30/18 10:00 04/08/18 10:12 Asa - PO 81 mg DAILY [facility] Administration Atorvastatin Calcium 20 mg 03/30/18 22:00 04/07/18 21:33 Lipitor - NGT 20 mg HS [facility] Administration Chlorhexidine Gluconate 15 ml 03/30/18 12:30 04/08/18 10:13 Peridex - MM 15 ml BID [facility] Administration Glycerin 1 each 03/27/18 21:55 Glycerin Suppository Adult - RC DAILY PRN CONSTIPATION Piperacillin Sod/Tazobactam 100 mls @ 200 mls/hr 03/30/18 12:00 04/08/18 10: 11 Sod 4.5 gm/ Dextrose IVPB 200 mls/hr Q8H-IV [facility] Administration Protocol Vancomycin HCl 1,250 mg/ 250 mls @ 166.667 mls/hr 04/02/18 13:00 04/08/18 01: 11 Dextrose IVPB 166.667 mls/hr Q12H [facility] Administration Protocol Propofol 1,000,000 mcg in 100 mls @ 3.849 mls/hr 04/03/18 16:15 04/08/18 10: 10 Diprivan - IVPB 25 mcg/kg/min TITR [facility] 19.245 mls/hr Administration Protocol 5 MCG/KG/MIN Morphine Sulfate 100 mg/ 100 mls @ 1 mls/hr 04/08/18 11:45 Sodium Chloride IVPB TITR [facility] Protocol 1 MG/HR Insulin Aspart 1 vial 04/07/18 13:00 04/08/18 06:20 Novolog Vial Sliding Scale - SQ 10 unit Q6HPO [facility] Administration Protocol Insulin Detemir 35 units 04/07/18 22:00 04/07/18 21:33 Levemir Vial SQ 35 units HS [facility] Administration Lisinopril 10 mg 04/02/18 08:25 04/08/18 10:35 Prinivil NGT 10 mg DAILY [facility] Administration Metoprolol Tartrate 50 mg 04/02/18 08:25 04/08/18 10:11 Lopressor - NGT 50 mg BID [facility] Administration Ondansetron HCl 4 mg 03/27/18 21:56 Zofran Injection IVPUSH Q6H PRN NAUSEA AND/OR VOMITING Pantoprazole Sodium 40 mg 03/28/18 10:30 04/08/18 10:09 Protonix Iv IVPUSH 40 mg DAILY [facility] Administration Phenytoin Sodium 100 mg 04/03/18 14:30 04/08/18 06:20 Dilantin Chewable Tablet - NGT 100 mg TID [facility] Administration Tamsulosin HCl 0.4 mg 03/28/18 10:00 04/07/18 10:46 Flomax - PO 0.4 mg DAILY [facility] Administration Imaging Echo - LV systolic function is grossly normal. EF = 55%. Regional wall motion abnormalities cannot be excluded due to limited visualization. There is trace mitral regurgitation. There is trace tricuspid regurgitation. There is mild pulmonary hypertension. Head CT w/o contrast (03/31/18) - Evolving left posterior cerebral artery territory acute/subacute infarct. Otherwise, no gross mass lesion or intracranial hemorrhage are identified. There is no shift of the midline structures or evidence of inferior herniation. Poor visualization of the ye- white matter junction. There is also paucity of the cortical sulci the patient' s age. Cannot rule out the brain swelling/edema. The basal cisterns are not effaced. Head CT w/o contrast (03/29/18) - Slightly limited examination, as described above in particular evaluation of the inferior aspect of the posterior fossa. There is suggestion of faint low-attenuation density in the left occipital lobe , medially. An acute infarct cannot be excluded. No gross intracranial hemorrhage is seen. CXR (03/31/18) - Since 03/31/18 at 0506 hours, the endotracheal tube, right jugular line and mediastinal clips and sutures persist. Tubing projects over the chest. There is a large heart, unfolded aorta and prominent central markings. CXR (03/31/18) - Since the prior study of 03/30/18 at 1030 hours, there is slight increase in lung markings at the bases. The endotracheal tube, nasogastric tube and right jugular line persist. CXR (03/27/18) - Since the earlier study of 03/16/2018, the endotracheal tube has been inserted and the tip is well above the leroy. Right jugular line is been inserted and the tip is in the SVC's junction with the right atrium. There are sternal sutures with weak inspiration, increased central markings and prominent mediastinum. There may be some fluid at the right base. There is no sign of a pneumothorax. Microbiology 03/30/18 11:00 Back Gram Stain - Final 03/30/18 11:00 Back Wound Culture - Preliminary NO GROWTH OBTAINED AFTER 24 HOURS INCUBATION, REINCUBATED. 03/29/18 17:30 Urine - Urine Jimenez Urine Culture - Final NO GROWTH OBTAINED 03/29/18 17:30 Blood - Central Line Blood Culture - Preliminary NO GROWTH OBTAINED AFTER 24 HOURS, INCUBATION TO CONTINUE FOR 4 DAYS. 03/29/18 17:30 Blood - Central Line Blood Culture - Preliminary NO GROWTH OBTAINED AFTER 24 HOURS, INCUBATION TO CONTINUE FOR 4 DAYS. ASSESSMENT/PLAN: Patient is a 62 year old male with past medical history of chronic low back pain , CAD s/p CABG on plavix (held prior to surgery), HTN, HLD, DM, and BPH presented as outpatient for planned L1-S1 laminectomy and T12-S1 posterior instrumented spinal fusion. During the surgery, patient became pulseless, ACLS protocol initiated, and ROSC achieved. #ROSC s/p cardiopulmonary arrest -Hypothermia protocol finished. -Cardiology (Dr. Bush) consulted. Recommendations appreciated. -IV Metoprolol switch to PO Lopressor BID via NGT. -Lisinopril 5mg daily and ASA 81mg started through NGT -hold off on Plavix resumption -Statins unless contraindicated. -Echocardiography - EF 55%, no right heart strain, no wall motion abnormalities -Mechanically ventilated.Management as per ICU #Anoxic brain injury -Neurology consulted. Recommendations appreciated. -Minimal propofol. Off sedation as tolerated. -Vecuronium drip and fentanyl drip discontinued. 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 No gross mass lesion or ICH. No shift of midline structures or evidence of inferior herniation. Poor visualization of ye-white matter junction. There is paucity of cortical sulci. Cannot r/o brain swelling/edema. Basal cisterns are not effaced. -EEG - This EEG is abnormal. These findings are nonspecific and may be seen with diffuse encephalopathy of metabolic, degenerative or vascular origin. Localized sharp wave activity was noted in the left temporal area suggestive of epiliptiform disturbance. #Spinal Wound -Mid back incision with skin sutures but layered closure not completed due to cardiac arrest -Monitor wound and daily CBC. -Surgical management of wound as per Dr. Rodriguez. #Leukocytosis: -Likely reactive -ID consulted. Recommendations appreciated. -Empiric Vancomycin and Zosyn day 6 -will continue to monitor #CAD s/p CABG -Continue ASA -hold home medication Plavix -will monitor #Hypertension -Metoprolol resumed. -Will monitor BP #DM -Discontinued insulin drip -Sliding scale implemented q4h -BGM q4h #MIAN: resolved -likely 2/2 pre-renal from poor perfusion during the arrest -Jimenez catheter placed -urine lytes ordered. -will monitor renal function #FEN -IV NS @ 125 ml/hr -Tube feeding (high protein, low kcal) -Routine bmp monitoring, will replete lytes as needed. #Prophylaxis -TEDs, SCDs #Disposition -ICU for close monitoring -Family meeting held for [facility]. Sisters signed DNR. -As per ICU team, discussed with family on stopping labs, antibiotics, glucose monitoring at this time, discussed starting a morphine drip now for planned extubation. Per sister, would not like to make any changes at this time. Prefers to continue all medications including insulin but would like to wait to start morphine unless there are clear signs of pain. OK to stop routine labs -For compassionate weaning on Tuesday Visit type - Emergency Visit Emergency Visit: Yes ED Registration Date: 03/27/18 Care time: The patient presented to the Emergency Department on the above date and was hospitalized for further evaluation of their emergent condition. - New Patient This patient is new to me today: Yes Date on this admission: 04/10/18 - Critical Care Critical Care patient: Yes Total Critical Care Time (in minutes): 35 Critical Care Statement: The care of this patient involved high complexity decision making to prevent further life threatening deterioration of the patient 's condition and/or to evaluate & treat vital organ system(s) failure or risk of failure.
--- NOTE | 2018-04-08 12:39 | PN ---
Teaching Attending Note Name of Resident: Isabella Velazquez ATTENDING PHYSICIAN STATEMENT I saw and evaluated the patient. I reviewed the resident's note and discussed the case with the resident. I agree with the resident's findings and plan as documented with exceptions below. SUBJECTIVE: Patient seen and examined. intubated, sedated. OBJECTIVE: Vital Signs Period Temp Pulse Resp BP Sys/Martinez Pulse Ox Last 24 Hr 98.5 F-99.6 F 67-77 12-28 105-165/51-74 100-100 Intake & Output 04/05/18 04/06/18 04/07/18 04/08/18 23:59 23:59 23:59 23:59 Intake Total 305 2280 1390 Output Total 500 900 500 Balance -195 1380 890 Weight 284 lb 9.868 oz 284 lb 9.868 oz 280 lb 3.32 oz 268 lb 4.841 oz General: intubated sedated in bed CVS: S1S2 regular Chest: limited exam, decreased air entry Abdomen:soft, obese, NT Extremities: unchanged edema Active Medications Artificial Tears (Artificial Tears) 1 drop OU BID PRN PRN Reason: DRY EYES Last Admin: 04/03/18 09:55 Dose: 1 drop Aspirin (Asa -) 81 mg PO DAILY [facility] Last Admin: 04/08/18 10:12 Dose: 81 mg Atorvastatin Calcium (Lipitor -) 20 mg NGT HS [facility] Last Admin: 04/07/18 21:33 Dose: 20 mg Chlorhexidine Gluconate (Peridex -) 15 ml MM BID [facility] Last Admin: 04/08/18 10:13 Dose: 15 ml Glycerin (Glycerin Suppository Adult -) 1 each RC DAILY PRN PRN Reason: CONSTIPATION Piperacillin Sod/Tazobactam (Sod 4.5 gm/ Dextrose) 100 mls @ 200 mls/hr IVPB Q8H-IV [facility]; Protocol Last Admin: 04/08/18 10:11 Dose: 200 mls/hr Vancomycin HCl 1,250 mg/ (Dextrose) 250 mls @ 166.667 mls/hr IVPB Q12H [facility]; Protocol Last Admin: 04/08/18 12:13 Dose: 166.667 mls/hr Propofol (Diprivan -) 1,000,000 mcg in 100 mls @ 3.849 mls/hr IVPB TITR [facility]; Protocol Last Admin: 04/08/18 10:10 Dose: 25 mcg/kg/min, 19.245 mls/hr Morphine Sulfate 100 mg/ (Sodium Chloride) 100 mls @ 1 mls/hr IVPB TITR [facility]; Protocol Insulin Aspart (Novolog Vial Sliding Scale -) 1 vial SQ Q6HPO [facility]; Protocol Last Admin: 04/08/18 12:08 Dose: 8 unit Insulin Detemir (Levemir Vial) 35 units SQ HS [facility] Last Admin: 04/07/18 21:33 Dose: 35 units Lisinopril (Prinivil) 10 mg NGT DAILY [facility] Last Admin: 04/08/18 10:35 Dose: 10 mg Metoprolol Tartrate (Lopressor -) 50 mg NGT BID [facility] Last Admin: 04/08/18 10:11 Dose: 50 mg Ondansetron HCl (Zofran Injection) 4 mg IVPUSH Q6H PRN PRN Reason: NAUSEA AND/OR VOMITING Pantoprazole Sodium (Protonix Iv) 40 mg IVPUSH DAILY [facility] Last Admin: 04/08/18 10:09 Dose: 40 mg Phenytoin Sodium (Dilantin Chewable Tablet -) 100 mg NGT TID [facility] Last Admin: 04/08/18 06:20 Dose: 100 mg Tamsulosin HCl (Flomax -) 0.4 mg PO DAILY [facility] Last Admin: 04/07/18 10:46 Dose: 0.4 mg Laboratory Results - last 24 hr 04/07/18 04/07/18 04/08/18 12:00 17:07 00:03 POC Glucometer 226.51851 [phone] Vancomycin Pre-Dose 11.9 L 04/08/18 04/08/18 06:17 11:56 POC Glucometer 301.64330 283.46647 Vancomycin Pre-Dose ASSESSMENT AND PLAN: 62yo M with PMH Severe stenosis L2-L3 and L3-L4, HTN, DM and CAD S/p CABG presented for scheduled laminectomy complicated by cardiac arrest. -s/p cardiac arrest -Acute toxic metabolic encephalopathy -Acute hypoxic respiratory failure -Fever -HTN -DM Plan: s/p hypothermia protocol. Vent management per ICU. Propofol resumed. Cardiology/neurology input appreciated. EEG with temporal spikes per neurology, on phenytoin. Surgical management per Dr. Rodriguez. Zosyn/vanco day 11, Cultures neg so far. Abx per ID. BP Improved, titrate meds as needed. BGM, ISS DVTPPX per spine DNR Family unlikely to agree to trach/PEG and alf care. Continue to follow for goals of care MICU monitoring. Guarded prognosis. total critical care time spent 35 min.
[2018-04-08] MEDS: TAMSULOSIN HCL 0.4 MG CAP PO SCH (12:56)
[2018-04-08] MEDS: ATORVASTATIN CA 20 MG TABLET (FP) NGT SCH (22:17)
[2018-04-08] MEDS: INSULIN (LEVEMIR) 100 UNITS/ML UNITS SQ SCH (22:19)
[2018-04-09] MEDS: INSULIN SLIDING SCALE (NOVOLOG) 1 VIAL SQ SCH ×4 (00:01→17:01)
[2018-04-09] MEDS: VANCOMYCIN 1,250 MG in DEXTROSE 5%-WATER - 250 ML IVPB SCH ×2 (00:02→13:07)
[2018-04-09] MEDS: PIPERACILLIN/TAZOB 4.5 GM 4.5 GM in DEXTROSE 5%-WATER 100 ML IVPB SCH ×3 (02:37→17:01)
[2018-04-09] MEDS: PHENYTOIN 50 MG TAB.CHEW NGT SCH ×3 (05:34→22:45)
[2018-04-09] MEDS ORDERED: INSULIN (NOVOLOG) ASPART 100 UNITS/ML 10ML VIAL ONE (07:43)
[2018-04-09] MEDS ORDERED: PIPERACILLIN/TAZOBACTAM 4.5 GM VIAL IVPB ONE (09:13)
[2018-04-09] MEDS ORDERED: DEXTROSE 5%-WATER 100 ML IVPB ONE (09:14)
[2018-04-09] MEDS ORDERED: PT OWN MED DRAWER 7, Y5N ONE ×4 (09:14→23:46)
[2018-04-09] MEDS: PANTOPRAZOLE SODIUM 40 MG VIAL IVPUSH SCH (09:20)
[2018-04-09] MEDS: ASPIRIN 81 MG CHEWABLE TABLETS PO SCH (09:20)
[2018-04-09] MEDS: CHLORHEXIDINE GLUCONATE 0.12% 15ML CUP MM SCH ×2 (09:21→22:45)
[2018-04-09] MEDS: TAMSULOSIN HCL 0.4 MG CAP PO SCH (09:21)
[2018-04-09] MEDS: LISINOPRIL 5 MG TABLET (FP) NGT SCH (09:21)
--- NOTE | 2018-04-09 10:38 | PN ---
Teaching Attending Note Name of Resident: Alex Bhagat ATTENDING PHYSICIAN STATEMENT I saw and evaluated the patient. I reviewed the resident's note and discussed the case with the resident. I agree with the resident's findings and plan as documented. SUBJECTIVE: Patient seen and examined in the ICU. Remains intubated, AC Mode of vent, 35% FiO2. Remains sedated on propofol and now MS drip for additional comfort measures. No pressors. OBJECTIVE: Intake & Output 04/06/18 04/07/18 04/08/18 04/09/18 23:59 23:59 23:59 23:59 Intake Total 2765 2809 2687 903 Output Total 1250 1000 1200 1400 Balance 1515 1809 1487 -497 Weight 284 lb 9.868 oz 280 lb 3.32 oz 268 lb 4.841 oz Last Vital Signs Temp Pulse Resp BP Pulse Ox 99.0 F 72 14 91/45 L 100 04/09/18 06:00 04/09/18 08:00 04/09/18 10:35 04/09/18 08:00 04/09/18 08:44 Active Medications Artificial Tears (Artificial Tears) 1 drop OU BID PRN PRN Reason: DRY EYES Last Admin: 04/03/18 09:55 Dose: 1 drop Aspirin (Asa -) 81 mg PO DAILY [facility] Last Admin: 04/09/18 09:20 Dose: 81 mg Atorvastatin Calcium (Lipitor -) 20 mg NGT HS [facility] Last Admin: 04/08/18 22:17 Dose: 20 mg Chlorhexidine Gluconate (Peridex -) 15 ml MM BID [facility] Last Admin: 04/09/18 09:21 Dose: 15 ml Glycerin (Glycerin Suppository Adult -) 1 each RC DAILY PRN PRN Reason: CONSTIPATION Piperacillin Sod/Tazobactam (Sod 4.5 gm/ Dextrose) 100 mls @ 200 mls/hr IVPB Q8H-IV [facility]; Protocol Last Admin: 04/09/18 09:20 Dose: 200 mls/hr Vancomycin HCl 1,250 mg/ (Dextrose) 250 mls @ 166.667 mls/hr IVPB Q12H [facility]; Protocol Last Admin: 04/09/18 00:02 Dose: 166.667 mls/hr Propofol (Diprivan -) 1,000,000 mcg in 100 mls @ 3.849 mls/hr IVPB TITR [facility]; Protocol Last Admin: 04/08/18 17:29 Dose: 25 mcg/kg/min, 19.245 mls/hr Morphine Sulfate 100 mg/ (Sodium Chloride) 100 mls @ 2 mls/hr IVPB TITR [facility]; Protocol Insulin Aspart (Novolog Vial Sliding Scale -) 1 vial SQ Q6HPO [facility]; Protocol Last Admin: 04/09/18 05:38 Dose: 8 unit Insulin Detemir (Levemir Vial) 35 units SQ HS [facility] Last Admin: 04/08/18 22:19 Dose: 35 units Lisinopril (Prinivil) 10 mg NGT DAILY [facility] Last Admin: 04/09/18 09:21 Dose: 10 mg Metoprolol Tartrate (Lopressor -) 50 mg NGT BID [facility] Last Admin: 04/08/18 22:17 Dose: 50 mg Ondansetron HCl (Zofran Injection) 4 mg IVPUSH Q6H PRN PRN Reason: NAUSEA AND/OR VOMITING Pantoprazole Sodium (Protonix Iv) 40 mg IVPUSH DAILY [facility] Last Admin: 04/09/18 09:20 Dose: 40 mg Phenytoin Sodium (Dilantin Chewable Tablet -) 100 mg NGT TID [facility] Last Admin: 04/09/18 05:34 Dose: 100 mg Tamsulosin HCl (Flomax -) 0.4 mg PO DAILY [facility] Last Admin: 04/09/18 09:21 Dose: 0.4 mg Gen: intubated, poorly responsive (on propofol and MS drip) Heart: RRR Lung: decreased breath sounds at the bases Abd: soft, nontender Ext: + edema Laboratory Results - last 24 hr 04/08/18 04/08/18 04/08/18 11:56 16:42 23:59 POC Glucometer 283.07358 294.63022 [phone] 04/09/18 05:36 POC Glucometer 254.47493 ASSESSMENT AND PLAN: s/p PEA/VTach Cardiopulmonary Arrest Anoxic Encephalopathy / Brain Injury s/p Lumbar Laminectomy CAD s/p CABG +Troponins likely Demand Ischemia LV Systolic/Diastolic Dysfunction HTN DM Hypercholesterolemia CKD - ABX per ID - Propofol and MS drip for sedation and comfort - Enteral feeds - DVT/GI prophylaxis - Potential plan for compassionate extubation mid week. - continue ICU monitoring Dr Shadi Critical care time spent in reviewing chart, evaluating patient and formulating plan 35 min
--- NOTE | 2018-04-09 11:31 | PN ---
Physical Exam: SUBJECTIVE: Patient seen and examined, intubated sedated. OBJECTIVE: Vital Signs Period Temp Pulse Resp BP Sys/Martinez Pulse Ox Last 24 Hr 98.4 F-99.0 F 69-88 14-24 91-175/43-71 100-100 GENERAL: intubated sedated in bed, no grimacing or biting on tube today with sternal rub Chest: limited anterior exam no rales or wheezing Abdomen:soft, obese, no voluntary or involuntary guarding or rigidity Extremities: unchanged edema Laboratory Results - last 24 hr 04/08/18 04/08/18 04/08/18 11:56 16:42 23:59 POC Glucometer 283.03524 294.46083 [phone] 04/09/18 05:36 POC Glucometer 254.89217 Active Medications Generic Name Dose Route Start Last Admin Trade Name Freq PRN Reason Stop Dose Admin Artificial Tears 1 drop 03/28/18 07:59 04/03/18 09:55 Artificial Tears OU 1 drop BID PRN Administration DRY EYES Aspirin 81 mg 03/30/18 10:00 04/09/18 09:20 Asa - PO 81 mg DAILY SYLVIA Administration Atorvastatin Calcium 20 mg 03/30/18 22:00 04/08/18 22:17 Lipitor - NGT 20 mg HS SYLVIA Administration Chlorhexidine Gluconate 15 ml 03/30/18 12:30 04/09/18 09:21 Peridex - MM 15 ml BID SYLVIA Administration Glycerin 1 each 03/27/18 21:55 Glycerin Suppository Adult - RC DAILY PRN CONSTIPATION Piperacillin Sod/Tazobactam 100 mls @ 200 mls/hr 03/30/18 12:00 04/09/18 09: 20 Sod 4.5 gm/ Dextrose IVPB 200 mls/hr Q8H-IV SYLVIA Administration Protocol Vancomycin HCl 1,250 mg/ 250 mls @ 166.667 mls/hr 04/02/18 13:00 04/09/18 00: 02 Dextrose IVPB 166.667 mls/hr Q12H SY[facility]IA Administration Protocol Propofol 1,000,000 mcg in 100 mls @ 3.849 mls/hr 04/03/18 16:15 04/08/18 17: 29 Diprivan - IVPB 25 mcg/kg/min TITR SYLVIA 19.245 mls/hr Administration Protocol 5 MCG/KG/MIN Morphine Sulfate 100 mg/ 100 mls @ 2 mls/hr 04/09/18 09:58 Sodium Chloride IVPB TITR SYLVIA Protocol 2 MG/HR Insulin Aspart 1 vial 04/07/18 13:00 04/09/18 05:38 Novolog Vial Sliding Scale - SQ 8 unit Q6HPO SY[facility]IA Administration Protocol Insulin Detemir 35 units 04/07/18 22:00 04/08/18 22:19 Levemir Vial SQ 35 units HS SYLVIA Administration Lisinopril 10 mg 04/02/18 08:25 04/09/18 09:21 Prinivil NGT 10 mg DAILY SYLVIA Administration Metoprolol Tartrate 50 mg 04/02/18 08:25 04/08/18 22:17 Lopressor - NGT 50 mg BID SYLVIA Administration Ondansetron HCl 4 mg 03/27/18 21:56 Zofran Injection IVPUSH Q6H PRN NAUSEA AND/OR VOMITING Pantoprazole Sodium 40 mg 03/28/18 10:30 04/09/18 09:20 Protonix Iv IVPUSH 40 mg DAILY SYLVIA Administration Phenytoin Sodium 100 mg 04/03/18 14:30 04/09/18 05:34 Dilantin Chewable Tablet - NGT 100 mg TID SYLVIA Administration Tamsulosin HCl 0.4 mg 03/28/18 10:00 04/09/18 09:21 Flomax - PO 0.4 mg DAILY SYLVIA Administration ASSESSMENT/PLAN: 62yo M with PMH Severe stenosis L2-L3 and L3-L4, HTN, DM and CAD S/p CABG presented for scheduled laminectomy complicated by cardiac arrest. -s/p cardiac arrest -Acute toxic metabolic encephalopathy -Acute hypoxic respiratory failure -Fever -HTN -DM Plan: s/p hypothermia protocol. Vent management per ICU. Propofol resumed. Started on Morphine drip for comfort by ICU. Cardiology/neurology input appreciated. EEG with temporal spikes per neurology, on phenytoin. Surgical management per Dr. Rodriguez. Zosyn/vanco day 12, Cultures neg so far. Abx per ID. BP Improved, titrate meds as needed. BGM, ISS DVTPPX per spine DNR Family unlikely to agree to trach/PEG and intermediate project manager care. Continue to follow for goals of care Possible compassionate weaning mid next week. MICU monitoring. Guarded prognosis. Plan discussed with nursing. Visit type - Emergency Visit Emergency Visit: Yes ED Registration Date: 03/27/18 Care time: The patient presented to the Emergency Department on the above date and was hospitalized for further evaluation of their emergent condition. - New Patient This patient is new to me today: No - Critical Care Critical Care patient: No - Discharge Referral Referred to [facility] No
--- NOTE | 2018-04-09 11:43 | PN ---
Progress Note, Physician History of Present Illness: Sedated on ventilator Not responsive Afebrile WBC slightly worse 15K Cultures no growth - Current Medication List Current Medications: Active Medications Artificial Tears (Artificial Tears) 1 drop OU BID PRN PRN Reason: DRY EYES Last Admin: 04/03/18 09:55 Dose: 1 drop Aspirin (Asa -) 81 mg PO DAILY [facility] Last Admin: 04/09/18 09:20 Dose: 81 mg Atorvastatin Calcium (Lipitor -) 20 mg NGT HS [facility] Last Admin: 04/08/18 22:17 Dose: 20 mg Chlorhexidine Gluconate (Peridex -) 15 ml MM BID [facility] Last Admin: 04/09/18 09:21 Dose: 15 ml Glycerin (Glycerin Suppository Adult -) 1 each RC DAILY PRN PRN Reason: CONSTIPATION Piperacillin Sod/Tazobactam (Sod 4.5 gm/ Dextrose) 100 mls @ 200 mls/hr IVPB Q8H-IV [facility]IA; Protocol Last Admin: 04/09/18 09:20 Dose: 200 mls/hr Vancomycin HCl 1,250 mg/ (Dextrose) 250 mls @ 166.667 mls/hr IVPB Q12H SY[facility]IA; Protocol Last Admin: 04/09/18 00:02 Dose: 166.667 mls/hr Propofol (Diprivan -) 1,000,000 mcg in 100 mls @ 3.849 mls/hr IVPB TITR SYLVIA; Protocol Last Admin: 04/08/18 17:29 Dose: 25 mcg/kg/min, 19.245 mls/hr Morphine Sulfate 100 mg/ (Sodium Chloride) 100 mls @ 2 mls/hr IVPB TITR [facility]; Protocol Insulin Aspart (Novolog Vial Sliding Scale -) 1 vial SQ Q6HPO [facility]IA; Protocol Last Admin: 04/09/18 05:38 Dose: 8 unit Insulin Detemir (Levemir Vial) 35 units SQ HS [facility] Last Admin: 04/08/18 22:19 Dose: 35 units Lisinopril (Prinivil) 10 mg NGT DAILY [facility] Last Admin: 04/09/18 09:21 Dose: 10 mg Metoprolol Tartrate (Lopressor -) 50 mg NGT BID [facility] Last Admin: 04/08/18 22:17 Dose: 50 mg Ondansetron HCl (Zofran Injection) 4 mg IVPUSH Q6H PRN PRN Reason: NAUSEA AND/OR VOMITING Pantoprazole Sodium (Protonix Iv) 40 mg IVPUSH DAILY [facility] Last Admin: 04/09/18 09:20 Dose: 40 mg Phenytoin Sodium (Dilantin Chewable Tablet -) 100 mg NGT TID [facility] Last Admin: 04/09/18 05:34 Dose: 100 mg Tamsulosin HCl (Flomax -) 0.4 mg PO DAILY [facility] Last Admin: 04/09/18 09:21 Dose: 0.4 mg - Objective Vital Signs: Vital Signs Temperature 98.4 F 04/09/18 10:00 Pulse Rate 74 04/09/18 10:00 Respiratory Rate 14 04/09/18 10:35 Blood Pressure 92/43 L 04/09/18 10:00 O2 Sat by Pulse Oximetry (%) 100 04/09/18 08:44 Constitutional: Yes: No Distress Cardiovascular: Yes: Regular Rate and Rhythm, S1, S2 Respiratory: Yes: Mechanically Ventilated Gastrointestinal: Yes: Normal Bowel Sounds, Soft. No: Tenderness Edema: Yes Labs: CBC, BMP 04/05/18 05:30 04/05/18 05:30 INR, PTT INR 1.19 (0.83-1.09) H 03/27/18 23:30 Assessment/Plan S/P cardiopulmonary arrest Fever/ leukocytosis R/O sepsis Diabetes mellitus S/P laminectomy continue empiric zosyn/ vancomycin ventilatory/ hemodynamic support Prognosis guarded
[2018-04-09] MEDS: METOPROLOL TARTRATE 50 MG TABLET (FP) NGT SCH ×2 (13:06→22:45)
[2018-04-09] MEDS: MORPHINE 100 MG in SODIUM CHLORIDE 98 ML IVPB SCH (13:07)
--- NOTE | 2018-04-09 13:17 | PN ---
Progress Note, Physician History of Present Illness: Remains on mechanical ventilation, no sustained arrhythmias on telemetry, hemodynamics stable, started on morphine gtt for comfort. - Current Medication List Current Medications: Active Medications Artificial Tears (Artificial Tears) 1 drop OU BID PRN PRN Reason: DRY EYES Last Admin: 04/03/18 09:55 Dose: 1 drop Aspirin (Asa -) 81 mg PO DAILY [facility] Last Admin: 04/09/18 09:20 Dose: 81 mg Atorvastatin Calcium (Lipitor -) 20 mg NGT HS [facility] Last Admin: 04/08/18 22:17 Dose: 20 mg Chlorhexidine Gluconate (Peridex -) 15 ml MM BID [facility] Last Admin: 04/09/18 09:21 Dose: 15 ml Glycerin (Glycerin Suppository Adult -) 1 each RC DAILY PRN PRN Reason: CONSTIPATION Piperacillin Sod/Tazobactam (Sod 4.5 gm/ Dextrose) 100 mls @ 200 mls/hr IVPB Q8H-IV [facility]; Protocol Last Admin: 04/09/18 09:20 Dose: 200 mls/hr Vancomycin HCl 1,250 mg/ (Dextrose) 250 mls @ 166.667 mls/hr IVPB Q12H [facility]; Protocol Last Admin: 04/09/18 13:07 Dose: 166.667 mls/hr Propofol (Diprivan -) 1,000,000 mcg in 100 mls @ 3.849 mls/hr IVPB TITR [facility]IA; Protocol Last Admin: 04/08/18 17:29 Dose: 25 mcg/kg/min, 19.245 mls/hr Morphine Sulfate 100 mg/ (Sodium Chloride) 100 mls @ 2 mls/hr IVPB TITR [facility]IA; Protocol Last Admin: 04/09/18 13:07 Dose: 2 mg/hr, 2 mls/hr Insulin Aspart (Novolog Vial Sliding Scale -) 1 vial SQ Q6HPO [facility]IA; Protocol Last Admin: 04/09/18 13:14 Dose: 6 unit Insulin Detemir (Levemir Vial) 35 units SQ HS [facility]IA Last Admin: 04/08/18 22:19 Dose: 35 units Lisinopril (Prinivil) 10 mg NGT DAILY [facility] Last Admin: 04/09/18 09:21 Dose: 10 mg Metoprolol Tartrate (Lopressor -) 50 mg NGT BID [facility] Last Admin: 04/09/18 13:06 Dose: Not Given Ondansetron HCl (Zofran Injection) 4 mg IVPUSH Q6H PRN PRN Reason: NAUSEA AND/OR VOMITING Pantoprazole Sodium (Protonix Iv) 40 mg IVPUSH DAILY [facility] Last Admin: 04/09/18 09:20 Dose: 40 mg Phenytoin Sodium (Dilantin Chewable Tablet -) 100 mg NGT TID [facility] Last Admin: 04/09/18 05:34 Dose: 100 mg Tamsulosin HCl (Flomax -) 0.4 mg PO DAILY [facility] Last Admin: 04/09/18 09:21 Dose: 0.4 mg - Objective Vital Signs: Vital Signs Temperature 98.4 F 04/09/18 10:00 Pulse Rate 74 04/09/18 10:00 Respiratory Rate 14 04/09/18 12:46 Blood Pressure 92/43 L 04/09/18 10:00 O2 Sat by Pulse Oximetry (%) 100 04/09/18 08:44 Cardiovascular: Yes: Regular Rate and Rhythm Respiratory: Yes: Intubated, Mechanically Ventilated, Rhonchi Gastrointestinal: Yes: Normal Bowel Sounds, Soft Genitourinary: Yes: Jimenez Present Edema: Yes Edema: LLE: Trace, RLE: Trace Labs: CBC, BMP 04/05/18 05:30 04/05/18 05:30 INR, PTT INR 1.19 (0.83-1.09) H 03/27/18 23:30 Problem List - Problems (1) Status post lumbar laminectomy Code(s): Z98.890 - OTHER SPECIFIED POSTPROCEDURAL STATES (2) CAD (coronary artery disease) Code(s): I25.10 - ATHSCL HEART DISEASE OF [place] CORONARY ARTERY W/O ANG PCTRS Qualifiers: Coronary Disease-Associated Artery/Lesion type: [place] artery [place] vs. transplanted heart: [place] heart Associated angina: without angina Qualified Code(s): I25.10 - Atherosclerotic heart disease of [place] coronary artery without angina pectoris (3) Cardiac arrest Code(s): I46.9 - CARDIAC ARREST, CAUSE UNSPECIFIED (4) Encephalopathy acute Code(s): G93.40 - ENCEPHALOPATHY, UNSPECIFIED (5) HLD (hyperlipidemia) Code(s): E78.5 - HYPERLIPIDEMIA, UNSPECIFIED Qualifiers: Hyperlipidemia type: pure hypercholesterolemia Qualified Code(s): E78.00 - Pure hypercholesterolemia, unspecified; E78.0 - Pure hypercholesterolemia (6) HTN (hypertension) Code(s): I10 - ESSENTIAL (PRIMARY) HYPERTENSION Qualifiers: Hypertension type: essential hypertension Qualified Code(s): I10 - Essential (primary) hypertension (7) Hx of CABG Code(s): Z95.1 - PRESENCE OF AORTOCORONARY BYPASS GRAFT (8) Insulin dependent diabetes mellitus Code(s): E11.9 - TYPE 2 DIABETES MELLITUS WITHOUT COMPLICATIONS; Z79.4 - FDC (CURRENT) USE OF INSULIN (9) Demand ischemia Code(s): I24.8 - OTHER FORMS OF ACUTE ISCHEMIC HEART DISEASE Assessment/Plan 03/28/2018 Echocardiography report noted, normal LV systolic function, with LVEF 0f 55%, walll motion cannot be assessed (upon study review there is abnormal septal motion consistent with prior open heart surgery) no significant valvular pathology, normal RV size and fxn. 03/29/2018 CT suspicious for ischemia left posterior circulation ASSESSMENT: 1. Post cardiopulmonary arrest/pulse-less electrical activity, ventricular tachycardia post resuscitation currently ventilator-dependent 2. Post operative day #13 post L1-S1 laminectomy and T12-S1 posterior instrumentation 3. Anoxic brain injury with evidence of acute/subacute CVA on CT of the head, EEG shows spikes in right temporal lobe 4. CAD post CABG angina pectoris with demand ischemia - troponins have peaked 5. LV diastolic dysfunction with class 0 NYHA classification LV failure 6. HTN 7. DM 8. hypercholesterolemia PLAN: 1. Continue Lopressor 50 bid, lisinopril 10 qd, ASA 81 qd, and Lipitor 20 qd 2. Hold off on Plavix resumption as additional intervention is planned 3. Neurology evaluation appreciated, EEG shows left temporal seizures and diffuse encephelopathy, seizure prophylaxis 4. Sedation holidays as tolerated 5. Empiric abx coverage per ID for open wound and fever, C&S NGTD 6. DVT/GI prophylaxis, enteral feeds 7. Plan for trach/PEG vs compassionate wean
[2018-04-09] MEDS: PROPOFOL 1,000,000 MCG/100 ML VIAL IVPB SCH (17:02)
[2018-04-09] MEDS: INSULIN (LEVEMIR) 100 UNITS/ML UNITS SQ SCH (22:45)
[2018-04-09] MEDS: ATORVASTATIN CA 20 MG TABLET (FP) NGT SCH (22:45)
[2018-04-10] MEDS: PIPERACILLIN/TAZOB 4.5 GM 4.5 GM in DEXTROSE 5%-WATER 100 ML IVPB SCH ×3 (02:50→17:31)
[2018-04-10] MEDS ORDERED: PT OWN MED DRAWER 7, Y5N ONE ×6 (03:08→22:43)
[2018-04-10] MEDS: PHENYTOIN 50 MG TAB.CHEW NGT SCH ×3 (05:50→21:05)
[2018-04-10] MEDS: INSULIN SLIDING SCALE (NOVOLOG) 1 VIAL SQ SCH ×5 (06:02→23:05)
[2018-04-10] MEDS ORDERED: INSULIN REGULAR HUMAN 100 UNITS/ML *VIAL ONE (06:28)
[2018-04-10] MEDS: ASPIRIN 81 MG CHEWABLE TABLETS PO SCH (09:20)
[2018-04-10] MEDS: METOPROLOL TARTRATE 50 MG TABLET (FP) NGT SCH ×2 (09:20→21:05)
[2018-04-10] MEDS: PANTOPRAZOLE SODIUM 40 MG VIAL IVPUSH SCH (09:20)
[2018-04-10] MEDS: TAMSULOSIN HCL 0.4 MG CAP PO SCH (09:20)
[2018-04-10] MEDS: CHLORHEXIDINE GLUCONATE 0.12% 15ML CUP MM SCH ×2 (09:21→21:05)
[2018-04-10] MEDS: LISINOPRIL 5 MG TABLET (FP) NGT SCH (09:21)
--- NOTE | 2018-04-10 10:22 | PN ---
Progress Note, Physician History of Present Illness: Remains on mechanical ventilation, no sustained arrhythmias on telemetry, hemodynamics stable, remains on morphine gtt for comfort. - Current Medication List Current Medications: Active Medications Artificial Tears (Artificial Tears) 1 drop OU BID PRN PRN Reason: DRY EYES Last Admin: 04/03/18 09:55 Dose: 1 drop Aspirin (Asa -) 81 mg PO DAILY [facility] Last Admin: 04/10/18 09:20 Dose: 81 mg Atorvastatin Calcium (Lipitor -) 20 mg NGT HS [facility] Last Admin: 04/09/18 22:45 Dose: 20 mg Chlorhexidine Gluconate (Peridex -) 15 ml MM BID [facility] Last Admin: 04/10/18 09:21 Dose: 15 ml Glycerin (Glycerin Suppository Adult -) 1 each RC DAILY PRN PRN Reason: CONSTIPATION Piperacillin Sod/Tazobactam (Sod 4.5 gm/ Dextrose) 100 mls @ 200 mls/hr IVPB Q8H-IV [facility]IA; Protocol Last Admin: 04/10/18 09:20 Dose: 200 mls/hr Vancomycin HCl 1,250 mg/ (Dextrose) 250 mls @ 166.667 mls/hr IVPB Q12H [facility]; Protocol Last Admin: 04/10/18 00:00 Dose: 166.667 mls/hr Propofol (Diprivan -) 1,000,000 mcg in 100 mls @ 3.849 mls/hr IVPB TITR [facility]; Protocol Last Admin: 04/09/18 17:02 Dose: 25 mcg/kg/min, 19.245 mls/hr Morphine Sulfate 100 mg/ (Sodium Chloride) 100 mls @ 2 mls/hr IVPB TITR [facility]; Protocol Last Admin: 04/09/18 13:07 Dose: 2 mg/hr, 2 mls/hr Insulin Aspart (Novolog Vial Sliding Scale -) 1 vial SQ Q6HPO [facility]IA; Protocol Last Admin: 04/10/18 06:02 Dose: 8 unit Insulin Detemir (Levemir Vial) 35 units SQ HS [facility] Last Admin: 04/09/18 22:45 Dose: 35 units Lisinopril (Prinivil) 10 mg NGT DAILY [facility] Last Admin: 04/10/18 09:21 Dose: 10 mg Metoprolol Tartrate (Lopressor -) 50 mg NGT BID [facility] Last Admin: 04/10/18 09:20 Dose: 50 mg Ondansetron HCl (Zofran Injection) 4 mg IVPUSH Q6H PRN PRN Reason: NAUSEA AND/OR VOMITING Pantoprazole Sodium (Protonix Iv) 40 mg IVPUSH DAILY [facility] Last Admin: 04/10/18 09:20 Dose: 40 mg Phenytoin Sodium (Dilantin Chewable Tablet -) 100 mg NGT TID [facility] Last Admin: 04/10/18 05:50 Dose: 100 mg Tamsulosin HCl (Flomax -) 0.4 mg PO DAILY [facility] Last Admin: 04/10/18 09:20 Dose: 0.4 mg - Objective Vital Signs: Vital Signs Temperature 100 F H 04/10/18 10:00 Pulse Rate 70 04/10/18 10:00 Respiratory Rate 16 04/10/18 10:00 Blood Pressure 98/45 L 04/10/18 10:00 O2 Sat by Pulse Oximetry (%) 100 04/10/18 09:00 Constitutional: Yes: Other (Sedated) Cardiovascular: Yes: Regular Rate and Rhythm Respiratory: Yes: Intubated, Mechanically Ventilated, Rhonchi Gastrointestinal: Yes: Normal Bowel Sounds, Soft, Abdomen, Obese Edema: Yes Edema: LLE: Trace, RLE: Trace Labs: CBC, BMP 04/05/18 05:30 04/05/18 05:30 INR, PTT INR 1.19 (0.83-1.09) H 03/27/18 23:30 Problem List - Problems (1) Status post lumbar laminectomy Code(s): Z98.890 - OTHER SPECIFIED POSTPROCEDURAL STATES (2) CAD (coronary artery disease) Code(s): I25.10 - ATHSCL HEART DISEASE OF [place] CORONARY ARTERY W/O ANG PCTRS Qualifiers: Coronary Disease-Associated Artery/Lesion type: [place] artery [place] vs. transplanted heart: [place] heart Associated angina: without angina Qualified Code(s): I25.10 - Atherosclerotic heart disease of [place] coronary artery without angina pectoris (3) Cardiac arrest Code(s): I46.9 - CARDIAC ARREST, CAUSE UNSPECIFIED (4) Encephalopathy acute Code(s): G93.40 - ENCEPHALOPATHY, UNSPECIFIED (5) HLD (hyperlipidemia) Code(s): E78.5 - HYPERLIPIDEMIA, UNSPECIFIED Qualifiers: Hyperlipidemia type: pure hypercholesterolemia Qualified Code(s): E78.00 - Pure hypercholesterolemia, unspecified; E78.0 - Pure hypercholesterolemia (6) HTN (hypertension) Code(s): I10 - ESSENTIAL (PRIMARY) HYPERTENSION Qualifiers: Hypertension type: essential hypertension Qualified Code(s): I10 - Essential (primary) hypertension (7) Hx of CABG Code(s): Z95.1 - PRESENCE OF AORTOCORONARY BYPASS GRAFT (8) Insulin dependent diabetes mellitus Code(s): E11.9 - TYPE 2 DIABETES MELLITUS WITHOUT COMPLICATIONS; Z79.4 - INTERMEDIATE (CURRENT) USE OF INSULIN (9) Demand ischemia Code(s): I24.8 - OTHER FORMS OF ACUTE ISCHEMIC HEART DISEASE Assessment/Plan 03/28/2018 Echocardiography report noted, normal LV systolic function, with LVEF 0f 55%, walll motion cannot be assessed (upon study review there is abnormal septal motion consistent with prior open heart surgery) no significant valvular pathology, normal RV size and fxn. 03/29/2018 CT suspicious for ischemia left posterior circulation ASSESSMENT: 1. Post cardiopulmonary arrest/pulse-less electrical activity, ventricular tachycardia post resuscitation currently ventilator-dependent 2. Post operative day #14 post L1-S1 laminectomy and T12-S1 posterior instrumentation 3. Anoxic brain injury with evidence of acute/subacute CVA on CT of the head, EEG shows spikes in right temporal lobe 4. CAD post CABG angina pectoris with demand ischemia - troponins have peaked 5. LV diastolic dysfunction with class 0 NYHA classification LV failure 6. HTN 7. DM 8. hypercholesterolemia PLAN: 1. Continue Lopressor 50 bid, lisinopril 10 qd, ASA 81 qd, and Lipitor 20 qd 2. Hold off on Plavix resumption as additional intervention is planned 3. Neurology evaluation appreciated, EEG shows left temporal seizures and diffuse encephelopathy, seizure prophylaxis 4. Sedation holidays as tolerated 5. Empiric abx coverage per ID for open wound and fever, C&S NGTD 6. DVT/GI prophylaxis, enteral feeds 7. Plan for trach/PEG vs compassionate wean
--- NOTE | 2018-04-10 11:22 | PN ---
Progress Note, Physician History of Present Illness: Sedated on ventilator Not responsive Low grade temp noted WBC slightly elevated Cultures no growth - Current Medication List Current Medications: Active Medications Artificial Tears (Artificial Tears) 1 drop OU BID PRN PRN Reason: DRY EYES Last Admin: 04/03/18 09:55 Dose: 1 drop Aspirin (Asa -) 81 mg PO DAILY [facility] Last Admin: 04/10/18 09:20 Dose: 81 mg Atorvastatin Calcium (Lipitor -) 20 mg NGT HS [facility] Last Admin: 04/09/18 22:45 Dose: 20 mg Chlorhexidine Gluconate (Peridex -) 15 ml MM BID [facility] Last Admin: 04/10/18 09:21 Dose: 15 ml Glycerin (Glycerin Suppository Adult -) 1 each RC DAILY PRN PRN Reason: CONSTIPATION Piperacillin Sod/Tazobactam (Sod 4.5 gm/ Dextrose) 100 mls @ 200 mls/hr IVPB Q8H-IV [facility]; Protocol Last Admin: 04/10/18 09:20 Dose: 200 mls/hr Vancomycin HCl 1,250 mg/ (Dextrose) 250 mls @ 166.667 mls/hr IVPB Q12H [facility]; Protocol Last Admin: 04/10/18 00:00 Dose: 166.667 mls/hr Propofol (Diprivan -) 1,000,000 mcg in 100 mls @ 3.849 mls/hr IVPB TITR [facility]; Protocol Last Admin: 04/09/18 17:02 Dose: 25 mcg/kg/min, 19.245 mls/hr Morphine Sulfate 100 mg/ (Sodium Chloride) 100 mls @ 2 mls/hr IVPB TITR [facility]; Protocol Last Admin: 04/09/18 13:07 Dose: 2 mg/hr, 2 mls/hr Insulin Aspart (Novolog Vial Sliding Scale -) 1 vial SQ Q6HPO [facility]; Protocol Last Admin: 04/10/18 06:02 Dose: 8 unit Insulin Detemir (Levemir Vial) 35 units SQ HS [facility] Last Admin: 04/09/18 22:45 Dose: 35 units Lisinopril (Prinivil) 10 mg NGT DAILY [facility] Last Admin: 04/10/18 09:21 Dose: 10 mg Metoprolol Tartrate (Lopressor -) 50 mg NGT BID [facility] Last Admin: 04/10/18 09:20 Dose: 50 mg Ondansetron HCl (Zofran Injection) 4 mg IVPUSH Q6H PRN PRN Reason: NAUSEA AND/OR VOMITING Pantoprazole Sodium (Protonix Iv) 40 mg IVPUSH DAILY [facility] Last Admin: 04/10/18 09:20 Dose: 40 mg Phenytoin Sodium (Dilantin Chewable Tablet -) 100 mg NGT TID [facility] Last Admin: 04/10/18 05:50 Dose: 100 mg Tamsulosin HCl (Flomax -) 0.4 mg PO DAILY [facility] Last Admin: 04/10/18 09:20 Dose: 0.4 mg - Objective Vital Signs: Vital Signs Temperature 100 F H 04/10/18 10:00 Pulse Rate 70 04/10/18 10:00 Respiratory Rate 16 04/10/18 10:00 Blood Pressure 98/45 L 04/10/18 10:00 O2 Sat by Pulse Oximetry (%) 100 04/10/18 09:00 Constitutional: Yes: No Distress Eyes: Yes: Conjunctiva Clear Cardiovascular: Yes: Regular Rate and Rhythm, S1, S2 Respiratory: Yes: Mechanically Ventilated Gastrointestinal: Yes: Normal Bowel Sounds. No: Tenderness Edema: Yes Labs: CBC, BMP 04/05/18 05:30 04/05/18 05:30 INR, PTT INR 1.19 (0.83-1.09) H 03/27/18 23:30 Assessment/Plan S/P cardiopulmonary arrest Diabetes mellitus S/P laminectomy continue empiric zosyn/ vancomycin ventilatory/ hemodynamic support Prognosis poor
--- NOTE | 2018-04-10 13:12 | PN ---
Teaching Attending Note Name of Resident: China Randle ATTENDING PHYSICIAN STATEMENT I saw and evaluated the patient. I reviewed the resident's note and discussed the case with the resident. I agree with the resident's findings and plan as documented. SUBJECTIVE: Pt seen and examined in the ICU. Remains intubated, sedated. Low grade temp in AM. OBJECTIVE: Vital Signs Period Temp Pulse Resp BP Sys/Martinez Pulse Ox Last 24 Hr 98 F-100 F 70-82 12-16 88-127/42-60 99-100 Intake & Output 04/07/18 04/08/18 04/09/18 04/10/18 23:59 23:59 23:59 23:59 Intake Total 2809 2687 2605.2 996.4 Output Total 1000 1200 2500 400 Balance 1809 1487 105.2 596.4 Weight 127.1 kg 121.7 kg 122.2 kg Gen: intubated, sedated Heart: RRR Lung: decreased breath sounds at the bases Abd: soft, nontender Ext: + edema CBC, BMP 04/05/18 05:30 04/05/18 05:30 Active Medications Artificial Tears (Artificial Tears) 1 drop OU BID PRN PRN Reason: DRY EYES Last Admin: 04/03/18 09:55 Dose: 1 drop Aspirin (Asa -) 81 mg PO DAILY [facility] Last Admin: 04/10/18 09:20 Dose: 81 mg Atorvastatin Calcium (Lipitor -) 20 mg NGT HS [facility] Last Admin: 04/09/18 22:45 Dose: 20 mg Chlorhexidine Gluconate (Peridex -) 15 ml MM BID [facility] Last Admin: 04/10/18 09:21 Dose: 15 ml Glycerin (Glycerin Suppository Adult -) 1 each RC DAILY PRN PRN Reason: CONSTIPATION Piperacillin Sod/Tazobactam (Sod 4.5 gm/ Dextrose) 100 mls @ 200 mls/hr IVPB Q8H-IV [facility]; Protocol Last Admin: 04/10/18 09:20 Dose: 200 mls/hr Vancomycin HCl 1,250 mg/ (Dextrose) 250 mls @ 166.667 mls/hr IVPB Q12H [facility]; Protocol Last Admin: 04/10/18 00:00 Dose: 166.667 mls/hr Propofol (Diprivan -) 1,000,000 mcg in 100 mls @ 3.849 mls/hr IVPB TITR [facility]; Protocol Last Admin: 04/09/18 17:02 Dose: 25 mcg/kg/min, 19.245 mls/hr Morphine Sulfate 100 mg/ (Sodium Chloride) 100 mls @ 2 mls/hr IVPB TITR [facility]; Protocol Last Admin: 04/09/18 13:07 Dose: 2 mg/hr, 2 mls/hr Insulin Aspart (Novolog Vial Sliding Scale -) 1 vial SQ Q6HPO [facility]; Protocol Last Admin: 04/10/18 06:02 Dose: 8 unit Insulin Detemir (Levemir Vial) 35 units SQ HS [facility] Last Admin: 04/09/18 22:45 Dose: 35 units Lisinopril (Prinivil) 10 mg NGT DAILY [facility] Last Admin: 04/10/18 09:21 Dose: 10 mg Metoprolol Tartrate (Lopressor -) 50 mg NGT BID [facility] Last Admin: 04/10/18 09:20 Dose: 50 mg Ondansetron HCl (Zofran Injection) 4 mg IVPUSH Q6H PRN PRN Reason: NAUSEA AND/OR VOMITING Pantoprazole Sodium (Protonix Iv) 40 mg IVPUSH DAILY [facility] Last Admin: 04/10/18 09:20 Dose: 40 mg Phenytoin Sodium (Dilantin Chewable Tablet -) 100 mg NGT TID [facility] Last Admin: 04/10/18 05:50 Dose: 100 mg Tamsulosin HCl (Flomax -) 0.4 mg PO DAILY [facility] Last Admin: 04/10/18 09:20 Dose: 0.4 mg ASSESSMENT AND PLAN: s/p PEA/VTach Cardiopulmonary Arrest Anoxic Encephalopathy s/p Lumbar Laminectomy CAD s/p CABG +Troponins likely Demand Ischemia LV Systolic/Diastolic Dysfunction HTN DM Hypercholesterolemia CKD - continue empiric antibiotics - ASA, beta blockade, statin - enteral feeds - DVT/GI prophylaxis - continue ICU monitoring - pt DNR, continue discussions regarding goals of care critical care time spent in reviewing chart, evaluating patient and formulating plan 35 min
[2018-04-10] MEDS: VANCOMYCIN 1,250 MG in DEXTROSE 5%-WATER - 250 ML IVPB SCH ×2 (13:48)
[2018-04-10] MEDS: PROPOFOL 1,000,000 MCG/100 ML VIAL IVPB SCH ×4 (13:49→23:30)
--- NOTE | 2018-04-10 14:31 | PN ---
Physical Exam: SUBJECTIVE: - Morphine drip for comfort started over the weekend - Continues to overbreath vent, but RR decreased from previous OBJECTIVE: Vital Signs Period Temp Pulse Resp BP Sys/Martinez Pulse Ox Last 24 Hr 99 F-100 F 70-82 12-16 92-127/43-60 99-100 General: Intubated, sedated. Morphine and propofol drips running. Appears comfortable. HEENT: Eyes closed. RIJ in place. NTG with TF running. Cards: RRR, no murmur appreciated Pulm: Mechanically ventilated. Overbreathing vent to rate in low teens. Abd: Soft, nondistended Ext: No LE edema. : Jimenez in place, draining freely Neuro: Sedated. No movements noted Laboratory Results - last 24 hr 04/09/18 04/09/18 04/10/18 16:50 23:52 05:58 POC Glucometer 244.69891 214.29639 [phone] Active Medications Generic Name Dose Route Start Last Admin Trade Name Freq PRN Reason Stop Dose Admin Artificial Tears 1 drop 03/28/18 07:59 04/03/18 09:55 Artificial Tears OU 1 drop BID PRN Administration DRY EYES Aspirin 81 mg 03/30/18 10:00 04/10/18 09:20 Asa - PO 81 mg DAILY [facility] Administration Atorvastatin Calcium 20 mg 03/30/18 22:00 04/09/18 22:45 Lipitor - NGT 20 mg HS [facility] Administration Chlorhexidine Gluconate 15 ml 03/30/18 12:30 04/10/18 09:21 Peridex - MM 15 ml BID [facility] Administration Glycerin 1 each 03/27/18 21:55 Glycerin Suppository Adult - RC DAILY PRN CONSTIPATION Piperacillin Sod/Tazobactam 100 mls @ 200 mls/hr 03/30/18 12:00 04/10/18 09: 20 Sod 4.5 gm/ Dextrose IVPB 200 mls/hr Q8H-IV [facility] Administration Protocol Vancomycin HCl 1,250 mg/ 250 mls @ 166.667 mls/hr 04/02/18 13:00 04/10/18 13: 48 Dextrose IVPB 166.667 mls/hr Q12H [facility] Administration Protocol Propofol 1,000,000 mcg in 100 mls @ 3.849 mls/hr 04/03/18 16:15 04/10/18 13: 49 Diprivan - IVPB 25 mcg/kg/min TITR [facility] 19.245 mls/hr Administration Protocol 5 MCG/KG/MIN Morphine Sulfate 100 mg/ 100 mls @ 2 mls/hr 04/09/18 09:58 04/09/18 13:07 Sodium Chloride IVPB 2 mg/hr TITR [facility] 2 mls/hr Administration Protocol 2 MG/HR Insulin Aspart 1 vial 04/07/18 13:00 04/10/18 13:53 Novolog Vial Sliding Scale - SQ 6 unit Q6HPO [facility] Administration Protocol Insulin Detemir 35 units 04/07/18 22:00 04/09/18 22:45 Levemir Vial SQ 35 units HS [facility] Administration Lisinopril 10 mg 04/02/18 08:25 04/10/18 09:21 Prinivil NGT 10 mg DAILY [facility] Administration Metoprolol Tartrate 50 mg 04/02/18 08:25 04/10/18 09:20 Lopressor - NGT 50 mg BID [facility] Administration Ondansetron HCl 4 mg 03/27/18 21:56 Zofran Injection IVPUSH Q6H PRN NAUSEA AND/OR VOMITING Pantoprazole Sodium 40 mg 03/28/18 10:30 04/10/18 09:20 Protonix Iv IVPUSH 40 mg DAILY [facility] Administration Phenytoin Sodium 100 mg 04/03/18 14:30 04/10/18 13:54 Dilantin Chewable Tablet - NGT 100 mg TID [facility] Administration Tamsulosin HCl 0.4 mg 03/28/18 10:00 04/10/18 09:20 Flomax - PO 0.4 mg DAILY [facility] Administration ASSESSMENT/PLAN: Marco Land is a 62yo man with a PMH of CAD s/p CABG, HTN, HLD, IDDM, chronic back pain due to spinal stenosis with rapid neurological decline. He underwent cardiac arrest during a planned surgery on 03/27. ROSC was achieved after 26 minutes of CPR. He was transferred to the ICU and underwent cooling protocol. Since his arrest, Mr Land has had ongoing signs of anoxic brain injury and has not shown any purposeful activity. There is no indication that his neurologic status is improving. He remains in critical condition in the ICU. His family has begun the transition to comfort care and plans to extubate later this week. Neuro: - CT head on 03/29 and 03/31 with anoxic brain injury and infarct in the left occipital lobe - Sedation with propofol and morphine drip; Goal is comfort at this point - Sedation holidays as tolerated - will d/c if he appears uncomfortable or agitated - EEG without status epilepticus, but high seizure potential, encephalopathy. Continue dilantin 100mg TID per neurology. - Neuro following. CV: - Intraoperative cardiac arrest, 26 min CPR with ROSC and completion of cooling protocol. - H/o CAD, CABG, HTN. Continue metoprolol, lisinopril 5mg daily, ASA 81 via NGT - Cardiology following - Echo completed after arrest relatively normal, EF 55%, no right heart strain, no wall motion abnormalities - Elevated trops post-code, resolved - trended until decreasing Pulm: - Mechanically ventilated - Current settings SIMV, 450cc, 35%, PEEP 5, rate 12. - Continues to breath over vent - No plans for trach. Likely to extubate this week. - IS 10x per hour Heme: - Daily ASA. Continue to hold plavix per cards - Hgb had been stable, no longer checking daily labs GI: - NGT in place - Tolerating tube feeds - Rectal tube to keep back wound clean Renal: - Jimenez in place, adequate UOP - Home flomax via NGT ID: - Empiric vanc/zosyn per Dr Álvarez for previous episodes of fever, initial leukocytosis, surgical wound - Cultures negative Endo: - h/o IDDM - Levamir 35u, continue ISS Q6hr per family request Musc: - Monitoring back incision per nursing. No bleeding or purulence. - Dry dressing to be replaced/reinforced as needed for drainage. - Will contact Dr Rodriguez as needed if active bleeding is suspected PPx: - SQH, SCD's - PPI daily FEN: - TF at goal (promote, goal 1750cc daily) - SLIV. 10cc free water flush per hour - Replete lytes PRN Dispo: - Critically ill patient requiring ongoing ICU-level care - Palliative care consult. Likely to extubate Tuesday when both sisters are available to be present. Code status: DNR Seen and discussed with Dr Bright. China Randle PGY1 Visit type - Emergency Visit Emergency Visit: No - New Patient This patient is new to me today: No - Critical Care Critical Care patient: Yes Total Critical Care Time (in minutes): 45 Critical Care Statement: The care of this patient involved high complexity decision making to prevent further life threatening deterioration of the patient 's condition and/or to evaluate & treat vital organ system(s) failure or risk of failure.
--- NOTE | 2018-04-10 16:00 | PN ---
Teaching Attending Note Name of Resident: Isabella Velazquez ATTENDING PHYSICIAN STATEMENT I saw and evaluated the patient. I reviewed the resident's note and discussed the case with the resident. I agree with the resident's findings and plan as documented with exceptions below. SUBJECTIVE: Patient seen and examined, intubated and sedated. OBJECTIVE: Vital Signs Period Temp Pulse Resp BP Sys/Martinez Pulse Ox Last 24 Hr 99 F-100 F 64-82 12-16 92-127/40-60 99-100 Intake & Output 04/07/18 04/08/18 04/09/18 04/10/18 23:59 23:59 23:59 23:59 Intake Total 2809 2687 2605.2 996.4 Output Total 1000 1200 2500 400 Balance 1809 1487 105.2 596.4 Weight 280 lb 3.32 oz 268 lb 4.841 oz 269 lb 6.478 oz General: intubated sedated in bed CVS:S1S2 regular Chest; decreased effort, limited exam Abdomen:soft, distended Extremities: unchanged edema Active Medications Artificial Tears (Artificial Tears) 1 drop OU BID PRN PRN Reason: DRY EYES Last Admin: 04/03/18 09:55 Dose: 1 drop Aspirin (Asa -) 81 mg PO DAILY [facility] Last Admin: 04/10/18 09:20 Dose: 81 mg Atorvastatin Calcium (Lipitor -) 20 mg NGT HS [facility] Last Admin: 04/09/18 22:45 Dose: 20 mg Chlorhexidine Gluconate (Peridex -) 15 ml MM BID [facility] Last Admin: 04/10/18 09:21 Dose: 15 ml Glycerin (Glycerin Suppository Adult -) 1 each RC DAILY PRN PRN Reason: CONSTIPATION Piperacillin Sod/Tazobactam (Sod 4.5 gm/ Dextrose) 100 mls @ 200 mls/hr IVPB Q8H-IV [facility]; Protocol Last Admin: 04/10/18 09:20 Dose: 200 mls/hr Vancomycin HCl 1,250 mg/ (Dextrose) 250 mls @ 166.667 mls/hr IVPB Q12H [facility]; Protocol Last Admin: 04/10/18 13:48 Dose: 166.667 mls/hr Propofol (Diprivan -) 1,000,000 mcg in 100 mls @ 3.849 mls/hr IVPB TITR [facility]; Protocol Last Admin: 04/10/18 13:49 Dose: 25 mcg/kg/min, 19.245 mls/hr Morphine Sulfate 100 mg/ (Sodium Chloride) 100 mls @ 2 mls/hr IVPB TITR [facility]; Protocol Last Admin: 04/09/18 13:07 Dose: 2 mg/hr, 2 mls/hr Insulin Aspart (Novolog Vial Sliding Scale -) 1 vial SQ Q6HPO [facility]; Protocol Last Admin: 04/10/18 13:53 Dose: 6 unit Insulin Detemir (Levemir Vial) 35 units SQ HS [facility] Last Admin: 04/09/18 22:45 Dose: 35 units Lisinopril (Prinivil) 10 mg NGT DAILY [facility] Last Admin: 04/10/18 09:21 Dose: 10 mg Metoprolol Tartrate (Lopressor -) 50 mg NGT BID [facility] Last Admin: 04/10/18 09:20 Dose: 50 mg Ondansetron HCl (Zofran Injection) 4 mg IVPUSH Q6H PRN PRN Reason: NAUSEA AND/OR VOMITING Pantoprazole Sodium (Protonix Iv) 40 mg IVPUSH DAILY [facility] Last Admin: 04/10/18 09:20 Dose: 40 mg Phenytoin Sodium (Dilantin Chewable Tablet -) 100 mg NGT TID [facility] Last Admin: 04/10/18 13:54 Dose: 100 mg Tamsulosin HCl (Flomax -) 0.4 mg PO DAILY [facility] Last Admin: 04/10/18 09:20 Dose: 0.4 mg Laboratory Results - last 24 hr 04/09/18 04/09/18 04/10/18 16:50 23:52 05:58 POC Glucometer 244.32843 214.86555 [phone] ASSESSMENT AND PLAN: 62yo M with PMH Severe stenosis L2-L3 and L3-L4, HTN, DM and CAD S/p CABG presented for scheduled laminectomy complicated by cardiac arrest. -s/p cardiac arrest -Acute toxic metabolic encephalopathy -Acute hypoxic respiratory failure -Fever -HTN -DM Plan: s/p hypothermia protocol. Vent management per ICU. Propofol resumed. Started on Morphine drip for comfort by ICU. Cardiology/neurology input appreciated. EEG with temporal spikes per neurology, on phenytoin. Surgical management per Dr. Rodriguez. Zosyn/vanco day 13, Cultures neg so far. Abx per ID. Hypotensive, hold meds. BGM, ISS DVTPPX per spine DNR Possible compassionate weaning on Tuesday. Pallative care input appreciated. Continue to follow for goals of care MICU monitoring. Guarded prognosis. Plan discussed with nursing.
--- NOTE | 2018-04-10 17:23 | PN ---
Physical Exam: SUBJECTIVE: Patient seen and examined at bedside this morning. Sedated and intubated. OBJECTIVE: Vital Signs Period Temp Pulse Resp BP Sys/Martinez Pulse Ox Last 24 Hr 99 F-100 F 64-82 12-16 92-127/40-60 99-100 GENERAL: The patient is intubated. minimally sedated. Eyes closed. LUNGS: Coarse breath sounds. HEART: Regular rate and rhythm, S1, S2 without murmur, rub or gallop. ABDOMEN: Soft,obese, nondistended. EXTREMITIES: 2+ pulses, warm, well-perfused, +peripheral edema Laboratory Results - last 24 hr 04/09/18 04/09/18 04/10/18 16:50 23:52 05:58 POC Glucometer 244.93410 214.31077 [phone] Active Medications Generic Name Dose Route Start Last Admin Trade Name Freq PRN Reason Stop Dose Admin Artificial Tears 1 drop 03/28/18 07:59 04/03/18 09:55 Artificial Tears OU 1 drop BID PRN Administration DRY EYES Aspirin 81 mg 03/30/18 10:00 04/10/18 09:20 Asa - PO 81 mg DAILY [facility] Administration Atorvastatin Calcium 20 mg 03/30/18 22:00 04/09/18 22:45 Lipitor - NGT 20 mg HS [facility] Administration Chlorhexidine Gluconate 15 ml 03/30/18 12:30 04/10/18 09:21 Peridex - MM 15 ml BID [facility] Administration Glycerin 1 each 03/27/18 21:55 Glycerin Suppository Adult - RC DAILY PRN CONSTIPATION Piperacillin Sod/Tazobactam 100 mls @ 200 mls/hr 03/30/18 12:00 04/10/18 09: 20 Sod 4.5 gm/ Dextrose IVPB 200 mls/hr Q8H-IV [facility] Administration Protocol Vancomycin HCl 1,250 mg/ 250 mls @ 166.667 mls/hr 04/02/18 13:00 04/10/18 13: 48 Dextrose IVPB 166.667 mls/hr Q12H [facility] Administration Protocol Propofol 1,000,000 mcg in 100 mls @ 3.849 mls/hr 04/03/18 16:15 04/10/18 13: 49 Diprivan - IVPB 25 mcg/kg/min TITR [facility] 19.245 mls/hr Administration Protocol 5 MCG/KG/MIN Morphine Sulfate 100 mg/ 100 mls @ 2 mls/hr 04/09/18 09:58 04/09/18 13:07 Sodium Chloride IVPB 2 mg/hr TITR [facility] 2 mls/hr Administration Protocol 2 MG/HR Insulin Aspart 1 vial 04/07/18 13:00 04/10/18 13:53 Novolog Vial Sliding Scale - SQ 6 unit Q6HPO [facility] Administration Protocol Insulin Detemir 35 units 04/07/18 22:00 04/09/18 22:45 Levemir Vial SQ 35 units HS [facility] Administration Lisinopril 10 mg 04/02/18 08:25 04/10/18 09:21 Prinivil NGT 10 mg DAILY [facility] Administration Metoprolol Tartrate 50 mg 04/02/18 08:25 04/10/18 09:20 Lopressor - NGT 50 mg BID [facility] Administration Ondansetron HCl 4 mg 03/27/18 21:56 Zofran Injection IVPUSH Q6H PRN NAUSEA AND/OR VOMITING Pantoprazole Sodium 40 mg 03/28/18 10:30 04/10/18 09:20 Protonix Iv IVPUSH 40 mg DAILY [facility] Administration Phenytoin Sodium 100 mg 04/03/18 14:30 04/10/18 13:54 Dilantin Chewable Tablet - NGT 100 mg TID [facility] Administration Tamsulosin HCl 0.4 mg 03/28/18 10:00 04/10/18 09:20 Flomax - PO 0.4 mg DAILY [facility] Administration Imaging Echo - LV systolic function is grossly normal. EF = 55%. Regional wall motion abnormalities cannot be excluded due to limited visualization. There is trace mitral regurgitation. There is trace tricuspid regurgitation. There is mild pulmonary hypertension. Head CT w/o contrast (03/31/18) - Evolving left posterior cerebral artery territory acute/subacute infarct. Otherwise, no gross mass lesion or intracranial hemorrhage are identified. There is no shift of the midline structures or evidence of inferior herniation. Poor visualization of the ye- white matter junction. There is also paucity of the cortical sulci the patient' s age. Cannot rule out the brain swelling/edema. The basal cisterns are not effaced. Head CT w/o contrast (03/29/18) - Slightly limited examination, as described above in particular evaluation of the inferior aspect of the posterior fossa. There is suggestion of faint low-attenuation density in the left occipital lobe , medially. An acute infarct cannot be excluded. No gross intracranial hemorrhage is seen. CXR (03/31/18) - Since 03/31/18 at 0506 hours, the endotracheal tube, right jugular line and mediastinal clips and sutures persist. Tubing projects over the chest. There is a large heart, unfolded aorta and prominent central markings. CXR (03/31/18) - Since the prior study of 03/30/18 at 1030 hours, there is slight increase in lung markings at the bases. The endotracheal tube, nasogastric tube and right jugular line persist. CXR (03/27/18) - Since the earlier study of 03/16/2018, the endotracheal tube has been inserted and the tip is well above the leroy. Right jugular line is been inserted and the tip is in the SVC's junction with the right atrium. There are sternal sutures with weak inspiration, increased central markings and prominent mediastinum. There may be some fluid at the right base. There is no sign of a pneumothorax. Microbiology 03/30/18 11:00 Back Gram Stain - Final 03/30/18 11:00 Back Wound Culture - Preliminary NO GROWTH OBTAINED AFTER 24 HOURS INCUBATION, REINCUBATED. 03/29/18 17:30 Urine - Urine Jimenez Urine Culture - Final NO GROWTH OBTAINED 03/29/18 17:30 Blood - Central Line Blood Culture - Preliminary NO GROWTH OBTAINED AFTER 24 HOURS, INCUBATION TO CONTINUE FOR 4 DAYS. 03/29/18 17:30 Blood - Central Line Blood Culture - Preliminary NO GROWTH OBTAINED AFTER 24 HOURS, INCUBATION TO CONTINUE FOR 4 DAYS. ASSESSMENT/PLAN: Patient is a 62 year old male with past medical history of chronic low back pain , CAD s/p CABG on plavix (held prior to surgery), HTN, HLD, DM, and BPH presented as outpatient for planned L1-S1 laminectomy and T12-S1 posterior instrumented spinal fusion. During the surgery, patient became pulseless, ACLS protocol initiated, and ROSC achieved. #ROSC s/p cardiopulmonary arrest -Hypothermia protocol finished. -Cardiology (Dr. Bush) consulted. Recommendations appreciated. -IV Metoprolol switch to PO Lopressor BID via NGT. -Lisinopril 5mg daily and ASA 81mg started through NGT -hold off on Plavix resumption -Statins unless contraindicated. -Echocardiography - EF 55%, no right heart strain, no wall motion abnormalities -Mechanically ventilated.Management as per ICU #Anoxic brain injury -Neurology consulted. Recommendations appreciated. -Minimal propofol. Off sedation as tolerated. -Vecuronium drip and fentanyl drip discontinued. -Repeat head CT - evolving Left LATH TIER territory acute/subacute infarct. No gross mass lesion or ICH. No shift of midline structures or evidence of inferior herniation. Poor visualization of ye-white matter junction. There is paucity of cortical sulci. Cannot r/o brain swelling/edema. Basal cisterns are not effaced. -EEG - This EEG is abnormal. These findings are nonspecific and may be seen with diffuse encephalopathy of metabolic, degenerative or vascular origin. Localized sharp wave activity was noted in the left temporal area suggestive of epiliptiform disturbance. #Spinal Wound -Mid back incision with skin sutures but layered closure not completed due to cardiac arrest -Monitor wound and daily CBC. -Surgical management of wound as per Dr. Rodriguez. #Leukocytosis: -Likely reactive -ID consulted. Recommendations appreciated. -Empiric Vancomycin and Zosyn day 6 -will continue to monitor #CAD s/p CABG -Continue ASA -hold home medication Plavix -will monitor #Hypertension -Metoprolol resumed. -Will monitor BP #DM -Discontinued insulin drip -Sliding scale implemented q4h -BGM q4h #MIAN: resolved -likely 2/2 pre-renal from poor perfusion during the arrest -Jimenez catheter placed -urine lytes ordered. -will monitor renal function #FEN -IV NS @ 125 ml/hr -Tube feeding (high protein, low kcal) -Routine bmp monitoring, will replete lytes as needed. #Prophylaxis -TEDs, SCDs #Disposition -ICU for close monitoring -Family meeting held for [facility]. Sisters signed DNR. -As per ICU team, discussed with family on stopping labs, antibiotics, glucose monitoring at this time, discussed starting a morphine drip now for planned extubation. Per sister, would not like to make any changes at this time. Prefers to continue all medications including insulin but would like to wait to start morphine unless there are clear signs of pain. OK to stop routine labs -For compassionate weaning on Tuesday Visit type - Emergency Visit Emergency Visit: Yes ED Registration Date: 03/27/18 Care time: The patient presented to the Emergency Department on the above date and was hospitalized for further evaluation of their emergent condition. - New Patient This patient is new to me today: Yes Date on this admission: 04/11/18 - Critical Care Critical Care patient: Yes Total Critical Care Time (in minutes): 35 Critical Care Statement: The care of this patient involved high complexity decision making to prevent further life threatening deterioration of the patient 's condition and/or to evaluate & treat vital organ system(s) failure or risk of failure.
[2018-04-10] MEDS ORDERED: PIPERACILLIN/TAZOBACTAM 4.5 GM VIAL IVPB ONE (17:26)
[2018-04-10] MEDS ORDERED: DEXTROSE 5%-WATER 100 ML IVPB ONE (17:26)
[2018-04-10] MEDS: INSULIN (LEVEMIR) 100 UNITS/ML UNITS SQ SCH (21:05)
[2018-04-10] MEDS: ATORVASTATIN CA 20 MG TABLET (FP) NGT SCH (21:05)
[2018-04-10] MEDS: MORPHINE 100 MG in SODIUM CHLORIDE 98 ML IVPB SCH (23:00)
[2018-04-11] MEDS: PIPERACILLIN/TAZOB 4.5 GM 4.5 GM in DEXTROSE 5%-WATER 100 ML IVPB SCH ×3 (01:36→17:45)
[2018-04-11] MEDS: VANCOMYCIN 1,250 MG in DEXTROSE 5%-WATER - 250 ML IVPB SCH ×2 (01:36→13:39)
[2018-04-11] MEDS ORDERED: INSULIN (NOVOLOG) ASPART 100 UNITS/ML 10ML VIAL ONE ×2 (01:37→06:31)
[2018-04-11] MEDS: PROPOFOL 1,000,000 MCG/100 ML VIAL IVPB SCH ×6 (03:00→23:19)
[2018-04-11] MEDS: PHENYTOIN 50 MG TAB.CHEW NGT SCH ×3 (05:46→21:37)
[2018-04-11] MEDS: INSULIN SLIDING SCALE (NOVOLOG) 1 VIAL SQ SCH ×4 (06:02→23:18)
[2018-04-11] MEDS ORDERED: PT OWN MED DRAWER 7, Y5N ONE ×5 (06:30→21:27)
--- NOTE | 2018-04-11 06:32 | PN ---
Progress Note (short form) - Note Progress Note: Chief Complaint: Events noted, notes reviewed, remains intubated, sinus rhythm is noted, DNR noted, planning for compassionate wean this week History of Present Illness: Seen and examined in [facility] ICU. Events noted, notes reviewed, remains intubated, sinus rhythm is noted, DNR noted, planning for compassionate wean this week Echocardiography dated 03/28/2018 revealed normal LV systolic function, with LVEF 0f 55%, walll motion cannot be assessed (upon study review there is abnormal septal motion consistent with prior open heart surgery), normal RV size and function and no significant valvular pathology Medications: Current Medications Artificial Tears (Artificial Tears) 1 drop OU BID PRN PRN Reason: DRY EYES Last Admin: 04/03/18 09:55 Dose: 1 drop Aspirin (Asa -) 81 mg PO DAILY SYLVIA Last Admin: 04/10/18 09:20 Dose: 81 mg Atorvastatin Calcium (Lipitor -) 20 mg NGT HS SYLVIA Last Admin: 04/10/18 21:05 Dose: 20 mg Chlorhexidine Gluconate (Peridex -) 15 ml MM BID SYLVIA Last Admin: 04/10/18 21:05 Dose: 15 ml Glycerin (Glycerin Suppository Adult -) 1 each RC DAILY PRN PRN Reason: CONSTIPATION Piperacillin Sod/Tazobactam (Sod 4.5 gm/ Dextrose) 100 mls @ 200 mls/hr IVPB Q8H-IV SY[facility]IA; Protocol Last Admin: 04/11/18 01:36 Dose: 200 mls/hr Vancomycin HCl 1,250 mg/ (Dextrose) 250 mls @ 166.667 mls/hr IVPB Q12H SY[facility]IA; Protocol Last Admin: 04/11/18 01:36 Dose: 166.667 mls/hr Propofol (Diprivan -) 1,000,000 mcg in 100 mls @ 3.849 mls/hr IVPB TITR SYLVIA; Protocol Last Admin: 04/11/18 06:30 Dose: 25 mcg/kg/min, 19.245 mls/hr Morphine Sulfate 100 mg/ (Sodium Chloride) 100 mls @ 2 mls/hr IVPB TITR SY[facility]IA; Protocol Last Admin: 04/10/18 23:00 Dose: 2 mg/hr, 2 mls/hr Insulin Aspart (Novolog Vial Sliding Scale -) 1 vial SQ Q6HPO SY[facility]IA; Protocol Last Admin: 04/11/18 06:02 Dose: 8 unit Insulin Detemir (Levemir Vial) 35 units SQ HS [facility] Last Admin: 04/10/18 21:05 Dose: 35 units Lisinopril (Prinivil) 10 mg NGT DAILY [facility] Last Admin: 04/10/18 09:21 Dose: 10 mg Metoprolol Tartrate (Lopressor -) 50 mg NGT BID [facility] Last Admin: 04/10/18 21:05 Dose: Not Given Ondansetron HCl (Zofran Injection) 4 mg IVPUSH Q6H PRN PRN Reason: NAUSEA AND/OR VOMITING Pantoprazole Sodium (Protonix Iv) 40 mg IVPUSH DAILY [facility] Last Admin: 04/10/18 09:20 Dose: 40 mg Phenytoin Sodium (Dilantin Chewable Tablet -) 100 mg NGT TID [facility] Last Admin: 04/11/18 05:46 Dose: 100 mg Tamsulosin HCl (Flomax -) 0.4 mg PO DAILY [facility] Last Admin: 04/10/18 09:20 Dose: 0.4 mg Review of Systems Unable to obtain Vital Signs: Last Vital Signs Temp Pulse Resp BP Pulse Ox 99.3 F 71 13 105/49 L 100 04/11/18 06:00 04/11/18 06:00 04/11/18 06:20 04/11/18 06:00 04/11/18 06:13 Intake & Output 04/08/18 04/09/18 04/10/18 04/11/18 23:59 23:59 23:59 23:59 Intake Total 2687 2605.2 1324.6 1026.4 Output Total 1200 2500 900 350 Balance 1487 105.2 424.6 676.4 Weight 268 lb 4.841 oz 269 lb 6.478 oz 268 lb 8.368 oz Neck: Supple Negative JVD Respiratory: Bilateral Scattered Rhonchi Cardiovascular: S1 S2 Regular Rate and Rhythm Grade 1-2/6 ARMANI Gastrointestinal: Soft Benign Normal Bowel Sounds Ext: Trace Edema Chronic Venous Stasis Changes Labs: CBC, BMP 04/05/18 05:30 04/05/18 05:30 Hepatic Panel Total Bilirubin 0.6 mg/dL (0.2-1) 04/03/18 05:30 AST 97 U/L (15-37) H 04/03/18 05:30 ALT 77 U/L (13-61) H 04/03/18 05:30 Alkaline Phosphatase 232 U/L (45-117) H 04/03/18 05:30 Albumin 1.8 g/dl (3.4-5.0) L 04/03/18 05:30 Assessment/Plan ASSESSMENT: 1. Post cardiopulmonary arrest/pulse-less electrical activity, ventricular tachycardia post resuscitation currently intubated 2. Post operative day #15 post lumber laminectomy/L1-S1 laminectomy and T12-S1 posterior instrumentation 3. Anoxic brain injury, evidence of acute/subacute CVA on CT of the head 4. CAD post CABG angina pectoris with evidence of demand ischemic injury 5. LV diastolic dysfunction with class 0 NYHA classification LV failure 6. HTN 7. DM 8. Hypercholesterolemia 9. Chronic kidney disease, pre-renal azotemia 10. Anemia PLAN: 1. Continue Lopressor hemodynamics permitting and titrate dosage as needed and as tolerated 2. Continue Lisinopril hemodynamics permitting and titrate dosage as needed and as tolerated 3. Continue ASA and defer Plavix resumption 4. Continue Lipitor 5. Antibiotics as per ID service 6. As outlined above planning for compassionate wean this week Condition guarded [place] M.D.
[2018-04-11] MEDS ORDERED: PIPERACILLIN/TAZOBACTAM 4.5 GM VIAL IVPB ONE (09:32)
[2018-04-11] MEDS ORDERED: DEXTROSE 5%-WATER 100 ML IVPB ONE (09:33)
[2018-04-11] MEDS: TAMSULOSIN HCL 0.4 MG CAP PO SCH (09:35)
[2018-04-11] MEDS: ASPIRIN 81 MG CHEWABLE TABLETS PO SCH (09:35)
[2018-04-11] MEDS: METOPROLOL TARTRATE 50 MG TABLET (FP) NGT SCH ×2 (09:35→21:37)
[2018-04-11] MEDS: CHLORHEXIDINE GLUCONATE 0.12% 15ML CUP MM SCH ×2 (09:35→21:37)
[2018-04-11] MEDS: PANTOPRAZOLE SODIUM 40 MG VIAL IVPUSH SCH (09:36)
[2018-04-11] MEDS: LISINOPRIL 5 MG TABLET (FP) NGT SCH (09:36)
--- NOTE | 2018-04-11 12:38 | PN ---
Teaching Attending Note Name of Resident: China Randle ATTENDING PHYSICIAN STATEMENT I saw and evaluated the patient. I reviewed the resident's note and discussed the case with the resident. I agree with the resident's findings and plan as documented. SUBJECTIVE: Pt seen and examined in the ICU. Remains intubated, sedated. No overnight events. OBJECTIVE: Vital Signs Period Temp Pulse Resp BP Sys/Martinez Pulse Ox Last 24 Hr 99 F-99.3 F 64-76 - 95-114/39-51 99-100 Intake & Output 04/08/18 04/09/18 04/10/18 04/11/18 23:59 23:59 23:59 23:59 Intake Total 2687 2605.2 1324.6 1026.4 Output Total 1200 2500 900 350 Balance 1487 105.2 424.6 676.4 Weight 121.7 kg 122.2 kg 121.8 kg Gen: intubated, sedated Heart: RRR Lung: scattered rhonchi Abd: soft, nontender Ext: + edema CBC, BMP 04/05/18 05:30 04/05/18 05:30 Active Medications Artificial Tears (Artificial Tears) 1 drop OU BID PRN PRN Reason: DRY EYES Last Admin: 04/03/18 09:55 Dose: 1 drop Aspirin (Asa -) 81 mg PO DAILY SYLVIA Last Admin: 04/11/18 09:35 Dose: 81 mg Atorvastatin Calcium (Lipitor -) 20 mg NGT HS [facility] Last Admin: 04/10/18 21:05 Dose: 20 mg Chlorhexidine Gluconate (Peridex -) 15 ml MM BID [facility] Last Admin: 04/11/18 09:35 Dose: 15 ml Glycerin (Glycerin Suppository Adult -) 1 each RC DAILY PRN PRN Reason: CONSTIPATION Piperacillin Sod/Tazobactam (Sod 4.5 gm/ Dextrose) 100 mls @ 200 mls/hr IVPB Q8H-IV [facility]; Protocol Last Admin: 04/11/18 09:36 Dose: 200 mls/hr Vancomycin HCl 1,250 mg/ (Dextrose) 250 mls @ 166.667 mls/hr IVPB Q12H [facility]; Protocol Last Admin: 04/11/18 01:36 Dose: 166.667 mls/hr Propofol (Diprivan -) 1,000,000 mcg in 100 mls @ 3.849 mls/hr IVPB TITR [facility]; Protocol Last Admin: 04/11/18 06:30 Dose: 25 mcg/kg/min, 19.245 mls/hr Morphine Sulfate 100 mg/ (Sodium Chloride) 100 mls @ 2 mls/hr IVPB TITR [facility]; Protocol Last Admin: 04/10/18 23:00 Dose: 2 mg/hr, 2 mls/hr Insulin Aspart (Novolog Vial Sliding Scale -) 1 vial SQ Q6HPO [facility]; Protocol Last Admin: 04/11/18 06:02 Dose: 8 unit Insulin Detemir (Levemir Vial) 35 units SQ HS [facility] Last Admin: 04/10/18 21:05 Dose: 35 units Lisinopril (Prinivil) 10 mg NGT DAILY [facility] Last Admin: 04/11/18 09:36 Dose: 10 mg Metoprolol Tartrate (Lopressor -) 50 mg NGT BID [facility] Last Admin: 04/11/18 09:35 Dose: 50 mg Ondansetron HCl (Zofran Injection) 4 mg IVPUSH Q6H PRN PRN Reason: NAUSEA AND/OR VOMITING Pantoprazole Sodium (Protonix Iv) 40 mg IVPUSH DAILY [facility] Last Admin: 04/11/18 09:36 Dose: 40 mg Phenytoin Sodium (Dilantin Chewable Tablet -) 100 mg NGT TID [facility] Last Admin: 04/11/18 05:46 Dose: 100 mg Tamsulosin HCl (Flomax -) 0.4 mg PO DAILY [facility] Last Admin: 04/11/18 09:35 Dose: 0.4 mg ASSESSMENT AND PLAN: s/p PEA/VTach Cardiopulmonary Arrest Anoxic Encephalopathy s/p Lumbar Laminectomy CAD s/p CABG +Troponins likely Demand Ischemia LV Systolic/Diastolic Dysfunction HTN DM Hypercholesterolemia CKD - continue empiric antibiotics - ASA, beta blockade, statin - enteral feeds - DVT/GI prophylaxis - continue ICU monitoring - pt DNR, continue discussions regarding goals of care critical care time spent in reviewing chart, evaluating patient and formulating plan 35 min
--- NOTE | 2018-04-11 13:04 | PN ---
Physical Exam: SUBJECTIVE: - No events overnight OBJECTIVE: Vital Signs Period Temp Pulse Resp BP Sys/Martinez Pulse Ox Last 24 Hr 99 F-99.3 F 64-76 12-18 95-114/39-51 99-100 General: Sedated, appears comfortable Cards: RRR, no murmur Pulm: Mechanically ventilated. Some overbreathing of vent Abd: Obese, soft, nontender : Jimenez in place, freely draining Ext: WWP. No LE edema Neuro: Sedated, unresponsive Laboratory Results - last 24 hr 04/10/18 04/10/18 04/10/18 13:17 17:45 23:04 POC Glucometer 240.73476 242.10554 253.76815 04/11/18 05:56 POC Glucometer 278.55213 Active Medications Generic Name Dose Route Start Last Admin Trade Name Freq PRN Reason Stop Dose Admin Artificial Tears 1 drop 03/28/18 07:59 04/03/18 09:55 Artificial Tears OU 1 drop BID PRN Administration DRY EYES Aspirin 81 mg 03/30/18 10:00 04/11/18 09:35 Asa - PO 81 mg DAILY SYLVIA Administration Atorvastatin Calcium 20 mg 03/30/18 22:00 04/10/18 21:05 Lipitor - NGT 20 mg HS SYLVIA Administration Chlorhexidine Gluconate 15 ml 03/30/18 12:30 04/11/18 09:35 Peridex - MM 15 ml BID SYLVIA Administration Glycerin 1 each 03/27/18 21:55 Glycerin Suppository Adult - RC DAILY PRN CONSTIPATION Piperacillin Sod/Tazobactam 100 mls @ 200 mls/hr 03/30/18 12:00 04/11/18 09: 36 Sod 4.5 gm/ Dextrose IVPB 200 mls/hr Q8H-IV SY[facility]IA Administration Protocol Vancomycin HCl 1,250 mg/ 250 mls @ 166.667 mls/hr 04/02/18 13:00 04/11/18 01: 36 Dextrose IVPB 166.667 mls/hr Q12H SYLVIA Administration Protocol Propofol 1,000,000 mcg in 100 mls @ 3.849 mls/hr 04/03/18 16:15 04/11/18 06: 30 Diprivan - IVPB 25 mcg/kg/min TITR SY[facility]IA 19.245 mls/hr Administration Protocol 5 MCG/KG/MIN Morphine Sulfate 100 mg/ 100 mls @ 2 mls/hr 04/09/18 09:58 04/10/18 23:00 Sodium Chloride IVPB 2 mg/hr TITR SYLVIA 2 mls/hr Administration Protocol 2 MG/HR Insulin Aspart 1 vial 04/07/18 13:00 04/11/18 06:02 Novolog Vial Sliding Scale - SQ 8 unit Q6HPO SYLVIA Administration Protocol Insulin Detemir 35 units 04/07/18 22:00 04/10/18 21:05 Levemir Vial SQ 35 units HS SY[facility]IA Administration Lisinopril 10 mg 04/02/18 08:25 04/11/18 09:36 Prinivil NGT 10 mg DAILY SYLVIA Administration Metoprolol Tartrate 50 mg 04/02/18 08:25 04/11/18 09:35 Lopressor - NGT 50 mg BID SYLVIA Administration Ondansetron HCl 4 mg 03/27/18 21:56 Zofran Injection IVPUSH Q6H PRN NAUSEA AND/OR VOMITING Pantoprazole Sodium 40 mg 03/28/18 10:30 04/11/18 09:36 Protonix Iv IVPUSH 40 mg DAILY SYLVIA Administration Phenytoin Sodium 100 mg 04/03/18 14:30 04/11/18 05:46 Dilantin Chewable Tablet - NGT 100 mg TID SYLVIA Administration Tamsulosin HCl 0.4 mg 03/28/18 10:00 04/11/18 09:35 Flomax - PO 0.4 mg DAILY SYLVIA Administration ASSESSMENT/PLAN: Marco Land is a 62yo man with a PMH of CAD s/p CABG, HTN, HLD, IDDM, chronic back pain due to spinal stenosis with rapid neurological decline. He underwent cardiac arrest during a planned surgery on 03/27. ROSC was achieved after 26 minutes of CPR. He was transferred to the ICU and underwent cooling protocol. Since his arrest, Mr Land has had ongoing signs of anoxic brain injury and has not shown any sign of improvement. He remains in critical condition in the ICU. Family plans to switch to comfort care only later this week. Neuro: - CT head on 03/29 and 03/31 with anoxic brain injury and infarct in the left occipital lobe - Sedation with propofol and morphine drip - Sedation holidays as tolerated - will d/c if he appears uncomfortable or agitated - EEG without status epilepticus, but high seizure potential, encephalopathy. Continue dilantin 100mg TID per neurology. - Neuro following. CV: - Intraoperative cardiac arrest, 26 min CPR with ROSC and completion of cooling protocol. - H/o CAD, CABG, HTN. Continue metoprolol, lisinopril 5mg daily, ASA 81 via NGT - Cardiology following - Echo completed after arrest relatively normal, EF 55%, no right heart strain, no wall motion abnormalities - Elevated trops post-code, resolved - trended until decreasing Pulm: - Mechanically ventilated - Current settings SIMV, 450cc, 35%, PEEP 5, rate 12. - Continues to breath over vent but slower RR since starting morphine drip - No plans for trach. Likely to extubate this week. Heme: - Daily ASA. Continue to hold plavix per cards - No labs GI: - NGT in place - Tolerating tube feeds - Rectal tube to keep back wound clean Renal: - Jimenez in place, adequate UOP - Home flomax via NGT ID: - Empiric vanc/zosyn per Dr Álvarez for previous episodes of fever, initial leukocytosis, surgical wound - Cultures negative Endo: - h/o IDDM - Levamir 35u, continue ISS Q6hr per family request Musc: - Monitoring back incision per nursing. No bleeding or purulence. - Dry dressing to be replaced/reinforced as needed for drainage. - Will contact Dr Rodriguez as needed if active bleeding is suspected PPx: - SQH, SCD's - PPI daily FEN: - TF at goal (promote, goal 1750cc daily) - SLIV. 10cc free water flush per hour - Replete lytes PRN Dispo: - Critically ill patient requiring ongoing ICU-level care - Palliative care consult. Likely to extubate Tuesday when both sisters are available to be present. Code status: DNR Seen and discussed with Dr Bright. China Randle PGY1 Visit type - Emergency Visit Emergency Visit: No - New Patient This patient is new to me today: No - Critical Care Critical Care patient: Yes Total Critical Care Time (in minutes): 45 Critical Care Statement: The care of this patient involved high complexity decision making to prevent further life threatening deterioration of the patient 's condition and/or to evaluate & treat vital organ system(s) failure or risk of failure.
--- NOTE | 2018-04-11 13:05 | PN ---
Teaching Attending Note Name of Resident: Isabella Velazquez ATTENDING PHYSICIAN STATEMENT I saw and evaluated the patient. I reviewed the resident's note and discussed the case with the resident. I agree with the resident's findings and plan as documented. SUBJECTIVE:intubated/sedated OBJECTIVE: Last Vital Signs Temp Pulse Resp BP Pulse Ox 99.3 F 76 12 114/45 L 99 04/11/18 10:30 04/11/18 12:00 04/11/18 12:00 04/11/18 12:00 04/11/18 08:00 General intubated/sedated CV S1 S2 RRR no murmur/rub/gallop lungs CTA anteriorly, mechanical breath sounds Abdomen soft NT/ND Extremities 1+ pitting edema Neuro +gag, +pupil reflex. does not withdraw to pain ASSESSMENT AND PLAN: 62yo M with PMH Severe stenosis L2-L3 and L3-L4, HTN, DM and CAD S/p CABG presented for scheduled laminectomy however case was aborted due to de- saturation during the procedure and patient was flipped from prone position and noted to loose pulse and was PEA on the monitor. Code 99 was called and CPR initiated. received 1 shock and started on amio. ROSC achieved after approx 25mins. pt was started on hypothermia protocol and goal temp was achieved at 0800 this morning. 1. s/p cardiac arrest- s/p hypothermia protocol and re-warmed. cont lopressor/ acei/asa/statin. cardio on board 2. acute toxic/metabolic encephalopathy-concern for anoxic injury given prolonged CPR. no signs of meaningful recovery. family decision for compassionate extubation tomorrow (04/12). on dilantin. 4. Fever-afebrile. on empiric vanco/zosyn. all Cx NGTD. ID on baord. 5. HTN-improved. titrate medications as needed 6. DM-BGM and iSS 7. DVT ppx- hep sq 8. MICU monitoring. poor prognosis. plan for compassionate extubation tomorrow. on morphine ggt for comfort. plan to withdraw tomorrow. The care of this patient involved high complexity decision making to prevent further life threatening deterioration of the patient's condition and/or to evaluate & treat vital organ system(s) failure or risk of failure. 32 mins
[2018-04-11 15:20] VITALS: BMI 37.3
--- NOTE | 2018-04-11 15:49 | PN ---
Physical Exam: SUBJECTIVE: Patient seen and examined at bedside this morning. Patient is sedated and intubated. As per ICU team, patient is scheduled for compassionate weaning tomorrow at 2pm. OBJECTIVE: Vital Signs Period Temp Pulse Resp BP Sys/Martinez Pulse Ox Last 24 Hr 99 F-99.7 F 66-76 12-21 96-136/39-56 99-100 GENERAL: The patient is intubated. minimally sedated. Eyes closed. LUNGS: Coarse breath sounds. HEART: Regular rate and rhythm, S1, S2 without murmur, rub or gallop. ABDOMEN: Soft,obese, nondistended. EXTREMITIES: 2+ pulses, warm, well-perfused, +peripheral edema Laboratory Results - last 24 hr 04/10/18 04/10/18 04/10/18 13:17 17:45 23:04 POC Glucometer 240.37960 242.30135 253.69503 04/11/18 04/11/18 05:56 13:14 POC Glucometer 278.17668 241.00003 Active Medications Generic Name Dose Route Start Last Admin Trade Name Freq PRN Reason Stop Dose Admin Artificial Tears 1 drop 03/28/18 07:59 04/03/18 09:55 Artificial Tears OU 1 drop BID PRN Administration DRY EYES Aspirin 81 mg 03/30/18 10:00 04/11/18 09:35 Asa - PO 81 mg DAILY SYLVIA Administration Atorvastatin Calcium 20 mg 03/30/18 22:00 04/10/18 21:05 Lipitor - NGT 20 mg HS SYLVIA Administration Chlorhexidine Gluconate 15 ml 03/30/18 12:30 04/11/18 09:35 Peridex - MM 15 ml BID SYLVIA Administration Glycerin 1 each 03/27/18 21:55 Glycerin Suppository Adult - RC DAILY PRN CONSTIPATION Piperacillin Sod/Tazobactam 100 mls @ 200 mls/hr 03/30/18 12:00 04/11/18 09: 36 Sod 4.5 gm/ Dextrose IVPB 200 mls/hr Q8H-IV SYLVIA Administration Protocol Vancomycin HCl 1,250 mg/ 250 mls @ 166.667 mls/hr 04/02/18 13:00 04/11/18 13: 39 Dextrose IVPB 166.667 mls/hr Q12H SYLVIA Administration Protocol Propofol 1,000,000 mcg in 100 mls @ 3.849 mls/hr 04/03/18 16:15 04/11/18 13: 33 Diprivan - IVPB 20 mcg/kg/min TITR SYLVIA 15.396 mls/hr Administration Protocol 5 MCG/KG/MIN Morphine Sulfate 100 mg/ 100 mls @ 2 mls/hr 04/09/18 09:58 04/10/18 23:00 Sodium Chloride IVPB 2 mg/hr TITR SYLVIA 2 mls/hr Administration Protocol 2 MG/HR Insulin Aspart 1 vial 04/07/18 13:00 04/11/18 13:31 Novolog Vial Sliding Scale - SQ 6 unit Q6HPO SYLVIA Administration Protocol Insulin Detemir 35 units 04/07/18 22:00 04/10/18 21:05 Levemir Vial SQ 35 units HS SYLVIA Administration Lisinopril 10 mg 04/02/18 08:25 04/11/18 09:36 Prinivil NGT 10 mg DAILY SYLVIA Administration Metoprolol Tartrate 50 mg 04/02/18 08:25 04/11/18 09:35 Lopressor - NGT 50 mg BID SYLVIA Administration Ondansetron HCl 4 mg 03/27/18 21:56 Zofran Injection IVPUSH Q6H PRN NAUSEA AND/OR VOMITING Pantoprazole Sodium 40 mg 03/28/18 10:30 04/11/18 09:36 Protonix Iv IVPUSH 40 mg DAILY SYLVIA Administration Phenytoin Sodium 100 mg 04/03/18 14:30 04/11/18 13:32 Dilantin Chewable Tablet - NGT 100 mg TID SYLVIA Administration Tamsulosin HCl 0.4 mg 03/28/18 10:00 04/11/18 09:35 Flomax - PO 0.4 mg DAILY SYLVIA Administration Imaging Echo - LV systolic function is grossly normal. EF = 55%. Regional wall motion abnormalities cannot be excluded due to limited visualization. There is trace mitral regurgitation. There is trace tricuspid regurgitation. There is mild pulmonary hypertension. Head CT w/o contrast (03/31/18) - Evolving left posterior cerebral artery territory acute/subacute infarct. Otherwise, no gross mass lesion or intracranial hemorrhage are identified. There is no shift of the midline structures or evidence of inferior herniation. Poor visualization of the ye- white matter junction. There is also paucity of the cortical sulci the patient' s age. Cannot rule out the brain swelling/edema. The basal cisterns are not effaced. Head CT w/o contrast (03/29/18) - Slightly limited examination, as described above in particular evaluation of the inferior aspect of the posterior fossa. There is suggestion of faint low-attenuation density in the left occipital lobe , medially. An acute infarct cannot be excluded. No gross intracranial hemorrhage is seen. CXR (03/31/18) - Since 03/31/18 at 0506 hours, the endotracheal tube, right jugular line and mediastinal clips and sutures persist. Tubing projects over the chest. There is a large heart, unfolded aorta and prominent central markings. CXR (03/31/18) - Since the prior study of 03/30/18 at 1030 hours, there is slight increase in lung markings at the bases. The endotracheal tube, nasogastric tube and right jugular line persist. CXR (03/27/18) - Since the earlier study of 03/16/2018, the endotracheal tube has been inserted and the tip is well above the leroy. Right jugular line is been inserted and the tip is in the SVC's junction with the right atrium. There are sternal sutures with weak inspiration, increased central markings and prominent mediastinum. There may be some fluid at the right base. There is no sign of a pneumothorax. Microbiology 03/30/18 11:00 Back Gram Stain - Final 03/30/18 11:00 Back Wound Culture - Preliminary NO GROWTH OBTAINED AFTER 24 HOURS INCUBATION, REINCUBATED. 03/29/18 17:30 Urine - Urine Jimenez Urine Culture - Final NO GROWTH OBTAINED 03/29/18 17:30 Blood - Central Line Blood Culture - Preliminary NO GROWTH OBTAINED AFTER 24 HOURS, INCUBATION TO CONTINUE FOR 4 DAYS. 03/29/18 17:30 Blood - Central Line Blood Culture - Preliminary NO GROWTH OBTAINED AFTER 24 HOURS, INCUBATION TO CONTINUE FOR 4 DAYS. ASSESSMENT/PLAN: Patient is a 62 year old male with past medical history of chronic low back pain , CAD s/p CABG on plavix (held prior to surgery), HTN, HLD, DM, and BPH presented as outpatient for planned L1-S1 laminectomy and T12-S1 posterior instrumented spinal fusion. During the surgery, patient became pulseless, ACLS protocol initiated, and ROSC achieved. #ROSC s/p cardiopulmonary arrest -Hypothermia protocol finished. -Cardiology (Dr. Bush) consulted. Recommendations appreciated. -IV Metoprolol switch to PO Lopressor BID via NGT. -Lisinopril 5mg daily and ASA 81mg started through NGT -hold off on Plavix resumption -Statins unless contraindicated. -Echocardiography - EF 55%, no right heart strain, no wall motion abnormalities -Mechanically ventilated.Management as per ICU #Anoxic brain injury -Neurology consulted. Recommendations appreciated. -Minimal propofol. Off sedation as tolerated. -Vecuronium drip and fentanyl drip discontinued. 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 No gross mass lesion or ICH. No shift of midline structures or evidence of inferior herniation. Poor visualization of ye-white matter junction. There is paucity of cortical sulci. Cannot r/o brain swelling/edema. Basal cisterns are not effaced. -EEG - This EEG is abnormal. These findings are nonspecific and may be seen with diffuse encephalopathy of metabolic, degenerative or vascular origin. Localized sharp wave activity was noted in the left temporal area suggestive of epiliptiform disturbance. #Spinal Wound -Mid back incision with skin sutures but layered closure not completed due to cardiac arrest -Monitor wound and daily CBC. -Surgical management of wound as per Dr. Rodriguez. #Leukocytosis: -Likely reactive -ID consulted. Recommendations appreciated. -Empiric Vancomycin and Zosyn day 6 -will continue to monitor #CAD s/p CABG -Continue ASA -hold home medication Plavix -will monitor #Hypertension -Metoprolol resumed. -Will monitor BP #DM -Discontinued insulin drip -Sliding scale implemented q4h -BGM q4h #MIAN: resolved -likely 2/2 pre-renal from poor perfusion during the arrest -Jimenez catheter placed -urine lytes ordered. -will monitor renal function #FEN -IV NS @ 125 ml/hr -Tube feeding (high protein, low kcal) -Routine bmp monitoring, will replete lytes as needed. #Prophylaxis -TEDs, SCDs #Disposition -ICU for close monitoring -Family meeting held for [facility]. Sisters signed DNR. -As per ICU team, discussed with family on stopping labs, antibiotics, glucose monitoring at this time, discussed starting a morphine drip now for planned extubation. Per sister, would not like to make any changes at this time. Prefers to continue all medications including insulin but would like to wait to start morphine unless there are clear signs of pain. OK to stop routine labs -For compassionate weaning tomorrow at 2pm Visit type - Emergency Visit Emergency Visit: Yes ED Registration Date: 03/27/18 Care time: The patient presented to the Emergency Department on the above date and was hospitalized for further evaluation of their emergent condition. - New Patient This patient is new to me today: Yes Date on this admission: 04/11/18 - Critical Care Critical Care patient: Yes Total Critical Care Time (in minutes): 35 Critical Care Statement: The care of this patient involved high complexity decision making to prevent further life threatening deterioration of the patient 's condition and/or to evaluate & treat vital organ system(s) failure or risk of failure.
[2018-04-11] MEDS: INSULIN (LEVEMIR) 100 UNITS/ML UNITS SQ SCH (21:33)
[2018-04-11] MEDS: ATORVASTATIN CA 20 MG TABLET (FP) NGT SCH (21:37)
[2018-04-12] MEDS: VANCOMYCIN 1,250 MG in DEXTROSE 5%-WATER - 250 ML IVPB SCH ×2 (00:17→12:50)
[2018-04-12] MEDS: PIPERACILLIN/TAZOB 4.5 GM 4.5 GM in DEXTROSE 5%-WATER 100 ML IVPB SCH ×2 (02:44→09:42)
[2018-04-12] MEDS: PHENYTOIN 50 MG TAB.CHEW NGT SCH (06:10)
[2018-04-12] MEDS: INSULIN SLIDING SCALE (NOVOLOG) 1 VIAL SQ SCH ×2 (06:10→11:22)
[2018-04-12] MEDS ORDERED: DEXTROSE 5%-WATER 100 ML IVPB ONE (09:31)
[2018-04-12] MEDS ORDERED: PIPERACILLIN/TAZOBACTAM 4.5 GM VIAL IVPB ONE ×2 (09:31→09:33)
[2018-04-12] MEDS: TAMSULOSIN HCL 0.4 MG CAP PO SCH (09:37)
[2018-04-12] MEDS: ASPIRIN 81 MG CHEWABLE TABLETS PO SCH (09:37)
[2018-04-12] MEDS: LISINOPRIL 5 MG TABLET (FP) NGT SCH (09:38)
[2018-04-12] MEDS: CHLORHEXIDINE GLUCONATE 0.12% 15ML CUP MM SCH (09:41)
[2018-04-12] MEDS: PANTOPRAZOLE SODIUM 40 MG VIAL IVPUSH SCH (09:42)
[2018-04-12] MEDS: PROPOFOL 1,000,000 MCG/100 ML VIAL IVPB SCH (09:44)
[2018-04-12] MEDS: METOPROLOL TARTRATE 50 MG TABLET (FP) NGT SCH (11:14)
--- NOTE | 2018-04-12 11:37 | PN ---
Progress Note, Physician History of Present Illness: Remains on mechanical ventilation, no sustained arrhythmias on telemetry, hemodynamics stable, remains on morphine gtt for comfort. - Current Medication List Current Medications: Active Medications Artificial Tears (Artificial Tears) 1 drop OU BID PRN PRN Reason: DRY EYES Last Admin: 04/03/18 09:55 Dose: 1 drop Aspirin (Asa -) 81 mg PO DAILY [facility] Last Admin: 04/12/18 09:37 Dose: 81 mg Atorvastatin Calcium (Lipitor -) 20 mg NGT HS [facility] Last Admin: 04/11/18 21:37 Dose: 20 mg Chlorhexidine Gluconate (Peridex -) 15 ml MM BID SYLVIA Last Admin: 04/12/18 09:41 Dose: 15 ml Glycerin (Glycerin Suppository Adult -) 1 each RC DAILY PRN PRN Reason: CONSTIPATION Piperacillin Sod/Tazobactam (Sod 4.5 gm/ Dextrose) 100 mls @ 200 mls/hr IVPB Q8H-IV SYLVIA; Protocol Last Admin: 04/12/18 09:42 Dose: 200 mls/hr Vancomycin HCl 1,250 mg/ (Dextrose) 250 mls @ 166.667 mls/hr IVPB Q12H SYLVIA; Protocol Last Admin: 04/12/18 00:17 Dose: 166.667 mls/hr Propofol (Diprivan -) 1,000,000 mcg in 100 mls @ 3.849 mls/hr IVPB TITR SYLVIA; Protocol Last Admin: 04/12/18 09:44 Dose: 20 mcg/kg/min, 15.396 mls/hr Morphine Sulfate 100 mg/ (Sodium Chloride) 100 mls @ 2 mls/hr IVPB TITR SYLVIA; Protocol Last Admin: 04/10/18 23:00 Dose: 2 mg/hr, 2 mls/hr Insulin Aspart (Novolog Vial Sliding Scale -) 1 vial SQ Q6HPO SYLVIA; Protocol Last Admin: 04/12/18 11:22 Dose: 8 unit Insulin Detemir (Levemir Vial) 35 units SQ HS [facility] Last Admin: 04/11/18 21:33 Dose: 35 units Lisinopril (Prinivil) 10 mg NGT DAILY [facility] Last Admin: 04/12/18 09:38 Dose: 10 mg Metoprolol Tartrate (Lopressor -) 50 mg NGT BID [facility] Last Admin: 04/12/18 11:14 Dose: Not Given Ondansetron HCl (Zofran Injection) 4 mg IVPUSH Q6H PRN PRN Reason: NAUSEA AND/OR VOMITING Pantoprazole Sodium (Protonix Iv) 40 mg IVPUSH DAILY [facility] Last Admin: 04/12/18 09:42 Dose: 40 mg Phenytoin Sodium (Dilantin Chewable Tablet -) 100 mg NGT TID [facility] Last Admin: 04/12/18 06:10 Dose: 100 mg Tamsulosin HCl (Flomax -) 0.4 mg PO DAILY [facility] Last Admin: 04/12/18 09:37 Dose: 0.4 mg - Objective Vital Signs: Vital Signs Temperature 99 F 04/12/18 10:00 Pulse Rate 74 04/12/18 10:00 Respiratory Rate 12 04/12/18 10:00 Blood Pressure 107/46 L 04/12/18 10:00 O2 Sat by Pulse Oximetry (%) 100 04/12/18 09:00 Constitutional: Yes: No Distress, Calm, Thin Neck: Yes: Supple Cardiovascular: Yes: Regular Rate and Rhythm Respiratory: Yes: Intubated, Mechanically Ventilated, Rhonchi Gastrointestinal: Yes: Normal Bowel Sounds, Soft Edema: No Labs: CBC, BMP 04/05/18 05:30 04/05/18 05:30 INR, PTT INR 1.19 (0.83-1.09) H 03/27/18 23:30 - ....Imaging EKG: Report Reviewed (Tele: SR) Problem List - Problems (1) Status post lumbar laminectomy Code(s): Z98.890 - OTHER SPECIFIED POSTPROCEDURAL STATES (2) CAD (coronary artery disease) Code(s): I25.10 - ATHSCL HEART DISEASE OF [place] CORONARY ARTERY W/O ANG PCTRS Qualifiers: Coronary Disease-Associated Artery/Lesion type: [place] artery [place] vs. transplanted heart: [place] heart Associated angina: without angina Qualified Code(s): I25.10 - Atherosclerotic heart disease of [place] coronary artery without angina pectoris (3) Cardiac arrest Code(s): I46.9 - CARDIAC ARREST, CAUSE UNSPECIFIED (4) Encephalopathy acute Code(s): G93.40 - ENCEPHALOPATHY, UNSPECIFIED (5) HLD (hyperlipidemia) Code(s): E78.5 - HYPERLIPIDEMIA, UNSPECIFIED Qualifiers: Hyperlipidemia type: pure hypercholesterolemia Qualified Code(s): E78.00 - Pure hypercholesterolemia, unspecified; E78.0 - Pure hypercholesterolemia (6) HTN (hypertension) Code(s): I10 - ESSENTIAL (PRIMARY) HYPERTENSION Qualifiers: Hypertension type: essential hypertension Qualified Code(s): I10 - Essential (primary) hypertension (7) Hx of CABG Code(s): Z95.1 - PRESENCE OF AORTOCORONARY BYPASS GRAFT (8) Insulin dependent diabetes mellitus Code(s): E11.9 - TYPE 2 DIABETES MELLITUS WITHOUT COMPLICATIONS; Z79.4 - INTERMEDIATE (CURRENT) USE OF INSULIN (9) Demand ischemia Code(s): I24.8 - OTHER FORMS OF ACUTE ISCHEMIC HEART DISEASE Assessment/Plan 03/28/2018 Echocardiography report noted, normal LV systolic function, with LVEF 0f 55%, walll motion cannot be assessed (upon study review there is abnormal septal motion consistent with prior open heart surgery) no significant valvular pathology, normal RV size and fxn. 03/29/2018 CT suspicious for ischemia left posterior circulation ASSESSMENT: 1. Post cardiopulmonary arrest/pulse-less electrical activity, ventricular tachycardia post resuscitation currently ventilator-dependent 2. Post operative day #16 post L1-S1 laminectomy and T12-S1 posterior instrumentation 3. Anoxic brain injury with evidence of acute/subacute CVA on CT of the head, EEG shows spikes in right temporal lobe 4. CAD post CABG angina pectoris with demand ischemia - troponins have peaked 5. LV diastolic dysfunction with class 0 NYHA classification LV failure 6. HTN 7. DM 8. hypercholesterolemia PLAN: 1. Continue Lopressor 50 bid, lisinopril 10 qd, ASA 81 qd, and Lipitor 20 qd 2. Hold off on Plavix resumption as additional intervention is planned 3. Neurology evaluation appreciated, EEG shows left temporal seizures and diffuse encephelopathy, seizure prophylaxis 4. Sedation holidays as tolerated 5. Empiric abx coverage per ID for open wound and fever, C&S NGTD 6. Resume DVT/continue GI prophylaxis, enteral feeds 7. Plan for trach/PEG vs compassionate wean depending on GOC discussions
--- NOTE | 2018-04-12 11:52 | PN ---
Teaching Attending Note Name of Resident: China Randle ATTENDING PHYSICIAN STATEMENT I saw and evaluated the patient. I reviewed the resident's note and discussed the case with the resident. I agree with the resident's findings and plan as documented. SUBJECTIVE: Pt seen and examined in the ICU. Remains intubated, sedated. Clinically unchanged. OBJECTIVE: Vital Signs Period Temp Pulse Resp BP Sys/Martinez Pulse Ox Last 24 Hr 98.8 F-99.7 F 66-76 12-21 95-136/44-94 100-100 Intake & Output 04/09/18 04/10/18 04/11/18 04/12/18 23:59 23:59 23:59 23:59 Intake Total 2605.2 1324.6 2854.4 872 Output Total 2500 900 1200 850 Balance 105.2 424.6 1654.4 22 Weight 122.2 kg 121.8 kg 122.8 kg Gen: intubated, sedated Heart: RRR Lung: scattered rhonchi Abd: soft, nontender Ext: + edema CBC, BMP 04/05/18 05:30 04/05/18 05:30 Active Medications Artificial Tears (Artificial Tears) 1 drop OU BID PRN PRN Reason: DRY EYES Last Admin: 04/03/18 09:55 Dose: 1 drop Aspirin (Asa -) 81 mg PO DAILY SY[facility]IA Last Admin: 04/12/18 09:37 Dose: 81 mg Atorvastatin Calcium (Lipitor -) 20 mg NGT HS SY[facility]IA Last Admin: 04/11/18 21:37 Dose: 20 mg Chlorhexidine Gluconate (Peridex -) 15 ml MM BID SYLVIA Last Admin: 04/12/18 09:41 Dose: 15 ml Glycerin (Glycerin Suppository Adult -) 1 each RC DAILY PRN PRN Reason: CONSTIPATION Heparin Sodium (Porcine) (Heparin -) 5,000 unit SQ BID SYLVIA Piperacillin Sod/Tazobactam (Sod 4.5 gm/ Dextrose) 100 mls @ 200 mls/hr IVPB Q8H-IV SYLVIA; Protocol Last Admin: 04/12/18 09:42 Dose: 200 mls/hr Vancomycin HCl 1,250 mg/ (Dextrose) 250 mls @ 166.667 mls/hr IVPB Q12H SYLVIA; Protocol Last Admin: 04/12/18 00:17 Dose: 166.667 mls/hr Propofol (Diprivan -) 1,000,000 mcg in 100 mls @ 3.849 mls/hr IVPB TITR [facility]; Protocol Last Admin: 04/12/18 09:44 Dose: 20 mcg/kg/min, 15.396 mls/hr Morphine Sulfate 100 mg/ (Sodium Chloride) 100 mls @ 2 mls/hr IVPB TITR SYLVIA; Protocol Last Admin: 04/10/18 23:00 Dose: 2 mg/hr, 2 mls/hr Insulin Aspart (Novolog Vial Sliding Scale -) 1 vial SQ Q6HPO SYLVIA; Protocol Last Admin: 04/12/18 11:22 Dose: 8 unit Insulin Detemir (Levemir Vial) 35 units SQ HS [facility] Last Admin: 04/11/18 21:33 Dose: 35 units Lisinopril (Prinivil) 10 mg NGT DAILY [facility] Last Admin: 04/12/18 09:38 Dose: 10 mg Metoprolol Tartrate (Lopressor -) 50 mg NGT BID [facility] Last Admin: 04/12/18 11:14 Dose: Not Given Ondansetron HCl (Zofran Injection) 4 mg IVPUSH Q6H PRN PRN Reason: NAUSEA AND/OR VOMITING Pantoprazole Sodium (Protonix Iv) 40 mg IVPUSH DAILY [facility] Last Admin: 04/12/18 09:42 Dose: 40 mg Phenytoin Sodium (Dilantin Chewable Tablet -) 100 mg NGT TID [facility] Last Admin: 04/12/18 06:10 Dose: 100 mg Tamsulosin HCl (Flomax -) 0.4 mg PO DAILY [facility] Last Admin: 04/12/18 09:37 Dose: 0.4 mg ASSESSMENT AND PLAN: s/p PEA/VTach Cardiopulmonary Arrest Anoxic Encephalopathy s/p Lumbar Laminectomy CAD s/p CABG +Troponins likely Demand Ischemia LV Systolic/Diastolic Dysfunction HTN DM Hypercholesterolemia CKD - continue empiric antibiotics - ASA, beta blockade, statin - enteral feeds - DVT/GI prophylaxis - continue ICU monitoring - pt DNR, continue discussions regarding goals of care critical care time spent in reviewing chart, evaluating patient and formulating plan 35 min
[2018-04-12] MEDS ORDERED: HEPARIN NA (PORCINE) 5,000 UNITS/ML 1ML VIAL SQ SCH (12:00)
[2018-04-12] MEDS ORDERED: morphine SULFATE 4 MG/ML VIAL IVPUSH ONE (13:53)
[2018-04-12] MEDS ORDERED: ACETAMINOPHEN 1000 MG/100 ML VIAL (NON FORMULARY) IVPB PRN (13:57)
[2018-04-12] MEDS: MORPHINE 100 MG in SODIUM CHLORIDE 98 ML IVPB SCH (14:21)
[2018-04-12] MEDS: LORazepam 2 MG/ML SDV VIAL IVPUSH SCH (14:22)
--- NOTE | 2018-04-12 15:49 | PN ---
Physical Exam: SUBJECTIVE: Patient seen and examined at bedside this morning. Sedated and intubated. OBJECTIVE: Vital Signs Period Temp Pulse Resp BP Sys/Martinez Pulse Ox Last 24 Hr 98.8 F-99.4 F 66-76 12-20 95-133/43-94 97-100 GENERAL: The patient is intubated. minimally sedated. Eyes closed. LUNGS: Coarse breath sounds. HEART: Regular rate and rhythm, S1, S2 without murmur, rub or gallop. ABDOMEN: Soft,obese, nondistended. EXTREMITIES: 2+ pulses, warm, well-perfused, +peripheral edema Laboratory Results - last 24 hr 04/11/18 04/12/18 04/12/18 18:16 06:00 11:18 POC Glucometer 283.03738 253.84724 [phone] Active Medications Generic Name Dose Route Start Last Admin Trade Name Freq PRN Reason Stop Dose Admin Acetaminophen 1,000 mg 04/12/18 13:57 Ofirmev Injection - IVPB Q6H PRN FEVER Morphine Sulfate 100 mg/ 100 mls @ 2 mls/hr 04/09/18 09:58 04/12/18 14:25 Sodium Chloride IVPB 4 mg/hr TITR SYLVIA 4 mls/hr Titration Protocol 2 MG/HR Lorazepam 2 mg 04/12/18 15:00 04/12/18 14:22 Ativan Injection - IVPUSH 2 mg Q6H-IV SYLVIA Administration Imaging Echo - LV systolic function is grossly normal. EF = 55%. Regional wall motion abnormalities cannot be excluded due to limited visualization. There is trace mitral regurgitation. There is trace tricuspid regurgitation. There is mild pulmonary hypertension. Head CT w/o contrast (03/31/18) - Evolving left posterior cerebral artery territory acute/subacute infarct. Otherwise, no gross mass lesion or intracranial hemorrhage are identified. There is no shift of the midline structures or evidence of inferior herniation. Poor visualization of the ye- white matter junction. There is also paucity of the cortical sulci the patient' s age. Cannot rule out the brain swelling/edema. The basal cisterns are not effaced. Head CT w/o contrast (03/29/18) - Slightly limited examination, as described above in particular evaluation of the inferior aspect of the posterior fossa. There is suggestion of faint low-attenuation density in the left occipital lobe , medially. An acute infarct cannot be excluded. No gross intracranial hemorrhage is seen. CXR (03/31/18) - Since 03/31/18 at 0506 hours, the endotracheal tube, right jugular line and mediastinal clips and sutures persist. Tubing projects over the chest. There is a large heart, unfolded aorta and prominent central markings. CXR (03/31/18) - Since the prior study of 03/30/18 at 1030 hours, there is slight increase in lung markings at the bases. The endotracheal tube, nasogastric tube and right jugular line persist. CXR (03/27/18) - Since the earlier study of 03/16/2018, the endotracheal tube has been inserted and the tip is well above the leroy. Right jugular line is been inserted and the tip is in the SVC's junction with the right atrium. There are sternal sutures with weak inspiration, increased central markings and prominent mediastinum. There may be some fluid at the right base. There is no sign of a pneumothorax. Microbiology 03/30/18 11:00 Back Gram Stain - Final 03/30/18 11:00 Back Wound Culture - Preliminary NO GROWTH OBTAINED AFTER 24 HOURS INCUBATION, REINCUBATED. 03/29/18 17:30 Urine - Urine Jimenez Urine Culture - Final NO GROWTH OBTAINED 03/29/18 17:30 Blood - Central Line Blood Culture - Preliminary NO GROWTH OBTAINED AFTER 24 HOURS, INCUBATION TO CONTINUE FOR 4 DAYS. 03/29/18 17:30 Blood - Central Line Blood Culture - Preliminary NO GROWTH OBTAINED AFTER 24 HOURS, INCUBATION TO CONTINUE FOR 4 DAYS. ASSESSMENT/PLAN: Patient is a 62 year old male with past medical history of chronic low back pain , CAD s/p CABG on plavix (held prior to surgery), HTN, HLD, DM, and BPH presented as outpatient for planned L1-S1 laminectomy and T12-S1 posterior instrumented spinal fusion. During the surgery, patient became pulseless, ACLS protocol initiated, and ROSC achieved. #ROSC s/p cardiopulmonary arrest -Hypothermia protocol finished. -Cardiology (Dr. Bush) consulted. Recommendations appreciated. -IV Metoprolol switch to PO Lopressor BID via NGT. -Lisinopril 5mg daily and ASA 81mg started through NGT -hold off on Plavix resumption -Statins unless contraindicated. -Echocardiography - EF 55%, no right heart strain, no wall motion abnormalities -Mechanically ventilated.Management as per ICU #Anoxic brain injury -Neurology consulted. Recommendations appreciated. -Minimal propofol. Off sedation as tolerated. -Vecuronium drip and fentanyl drip discontinued. -Repeat head CT - evolving Left C[place] territory acute/subacute infarct. No gross mass lesion or ICH. No shift of midline structures or evidence of inferior herniation. Poor visualization of ye-white matter junction. There is paucity of cortical sulci. Cannot r/o brain swelling/edema. Basal cisterns are not effaced. -EEG - This EEG is abnormal. These findings are nonspecific and may be seen with diffuse encephalopathy of metabolic, degenerative or vascular origin. Localized sharp wave activity was noted in the left temporal area suggestive of epiliptiform disturbance. #Spinal Wound -Mid back incision with skin sutures but layered closure not completed due to cardiac arrest -Monitor wound and daily CBC. -Surgical management of wound as per Dr. Rodriguez. #Leukocytosis: -Likely reactive -ID consulted. Recommendations appreciated. -Empiric Vancomycin and Zosyn day 6 -will continue to monitor #CAD s/p CABG -Continue ASA -hold home medication Plavix -will monitor #Hypertension -Metoprolol resumed. -Will monitor BP #DM -Discontinued insulin drip -Sliding scale implemented q4h -BGM q4h #MIAN: resolved -likely 2/2 pre-renal from poor perfusion during the arrest -Jimenez catheter placed -urine lytes ordered. -will monitor renal function #FEN -IV NS @ 125 ml/hr -Tube feeding (high protein, low kcal) -Routine bmp monitoring, will replete lytes as needed. #Prophylaxis -TEDs, SCDs #Disposition -At 2:30pm today, with family at bedside, patient was extubated. NGT discontinued. All routine medications discontinued. Jimenez and rectal tube kept in place for comfort. Morphine ggt increased to 4mg.Comfort measures maintained. Visit type - Emergency Visit Emergency Visit: Yes ED Registration Date: 03/27/18 Care time: The patient presented to the Emergency Department on the above date and was hospitalized for further evaluation of their emergent condition. - New Patient This patient is new to me today: Yes Date on this admission: 04/13/18 - Critical Care Critical Care patient: Yes Total Critical Care Time (in minutes): 35 Critical Care Statement: The care of this patient involved high complexity decision making to prevent further life threatening deterioration of the patient 's condition and/or to evaluate & treat vital organ system(s) failure or risk of failure.
--- NOTE | 2018-04-12 16:05 | PN ---
Physical Exam: SUBJECTIVE: - Transitioned to comfort care - Extubated to venturi mask at 2pm per family wishes OBJECTIVE: Vital Signs Period Temp Pulse Resp BP Sys/Martinez Pulse Ox Last 24 Hr 98.8 F-99.4 F 66-76 12-20 95-133/43-94 97-100 General: Awake, unresponsive Cards: RRR Pulm: Breathing comfortably with O2 by mask Abd: Soft, non-distended : Jimenez in place Laboratory Results - last 24 hr 04/11/18 04/12/18 04/12/18 18:16 06:00 11:18 POC Glucometer 283.93298 253.39452 266.30281 Active Medications Generic Name Dose Route Start Last Admin Trade Name Freq PRN Reason Stop Dose Admin Acetaminophen 1,000 mg 04/12/18 13:57 Ofirmev Injection - IVPB Q6H PRN FEVER Morphine Sulfate 100 mg/ 100 mls @ 2 mls/hr 04/09/18 09:58 04/12/18 14:25 Sodium Chloride IVPB 4 mg/hr TITR SYLVIA 4 mls/hr Titration Protocol 2 MG/HR Lorazepam 2 mg 04/12/18 15:00 04/12/18 14:22 Ativan Injection - IVPUSH 2 mg Q6H-IV SYLVIA Administration ASSESSMENT/PLAN: Marco Land is a 62yo man with a PMH of CAD s/p CABG, HTN, HLD, IDDM, chronic back pain due to spinal stenosis with rapid neurological decline. He underwent cardiac arrest during a planned surgery on 03/27 with ROSC achieved after 26 minutes of CPR. However, he sustained an anoxic brain injury due to the arrest and has not shown any signs of neurological recovery since his arrest. He was extubated and transitioned to comfort care today per family wishes. Neuro: - CT head on 03/29 and 03/31 with anoxic brain injury and infarct in the left occipital lobe - Continue morphine drip - Ativan 2mg Q6hr for seizure prevention CV: - Intraoperative cardiac arrest, 26 min CPR with ROSC and completion of cooling protocol. - Home medications discontinued Pulm: - Extubated to venturi mask - Suctioning of secretions PRN Heme: - SQH and ASA discontinued GI: - NGT removed, TF discontinued - Rectal tube to remain in place to avoid discomfort from frequent cleanings Renal: - Jimenez in place. Will remain to avoid discomfort from frequent cleanings ID: - Antibiotics discontinued Endo: - BGM and insulin discontinued Musc: - Change dressings to back incision PRN for comfort and cleanliness PPx: - Not indicated FEN: - Tube feeds discontinued per family wishes Dispo: - Comfort measures only. May transfer to floor depending on clinical course overnight Code status: DNR/DNI Discussed with ICU team. China Randle PGY1 Visit type - Emergency Visit Emergency Visit: No - New Patient This patient is new to me today: No - Critical Care Critical Care patient: Yes Total Critical Care Time (in minutes): 45 Critical Care Statement: The care of this patient involved high complexity decision making to prevent further life threatening deterioration of the patient 's condition and/or to evaluate & treat vital organ system(s) failure or risk of failure.
--- NOTE | 2018-04-12 16:49 | PN ---
Teaching Attending Note Name of Resident: Isabella Velazquez ATTENDING PHYSICIAN STATEMENT I saw and evaluated the patient. I reviewed the resident's note and discussed the case with the resident. I agree with the resident's findings and plan as documented. SUBJECTIVE:intubated/sedated OBJECTIVE: Last Vital Signs Temp Pulse Resp BP Pulse Ox 98.8 F 76 14 103/47 L 94 L 04/12/18 13:45 04/12/18 16:37 04/12/18 16:37 04/12/18 16:37 04/12/18 16:37 General intubated/sedated CV S1 S2 RRR no murmur/rub/gallop lungs CTA anteriorly, mechanical breath sounds Abdomen soft NT/ND Extremities 1+ pitting edema Neuro +gag, +pupil reflex. does not withdraw to pain ASSESSMENT AND PLAN: 62yo M with PMH Severe stenosis L2-L3 and L3-L4, HTN, DM and CAD S/p CABG presented for scheduled laminectomy however case was aborted due to de- saturation during the procedure and patient was flipped from prone position and noted to loose pulse and was PEA on the monitor. Code 99 was called and CPR initiated. received 1 shock and started on amio. ROSC achieved after approx 25mins. pt was started on hypothermia protocol and goal temp was achieved at 0800 this morning. 1. s/p cardiac arrest- s/p hypothermia protocol and re-warmed. cont lopressor/ acei/asa/statin. cardio on board 2. acute toxic/metabolic encephalopathy-concern for anoxic injury given prolonged CPR. no signs of meaningful recovery. family decision for compassionate extubation today at 1400. on dilantin. 4. Fever-afebrile. on empiric vanco/zosyn. all Cx NGTD. ID on baord. 5. HTN-improved. titrate medications as needed 6. DM-BGM and iSS 7. DVT ppx- hep sq 8. MICU monitoring. poor prognosis. plan for compassionate extubation today and place on inpatient hospice. cont morphine ggt and stop all blood draws, abx and feeding The care of this patient involved high complexity decision making to prevent further life threatening deterioration of the patient's condition and/or to evaluate & treat vital organ system(s) failure or risk of failure. 32 mins
[2018-04-13] MEDS: LORazepam 2 MG/ML SDV VIAL IVPUSH SCH ×4 (05:16→15:31)
[2018-04-13] MEDS ORDERED: MORPHINE 100 MG in SODIUM CHLORIDE 98 ML IVPB SCH (10:00)
[2018-04-13] MEDS ORDERED: ACETAMINOPHEN 1000 MG/100 ML VIAL (NON FORMULARY) IVPB PRN (10:00)
--- NOTE | 2018-04-13 11:01 | PN ---
Progress Note, Physician History of Present Illness: Extubated on VM, inpatient hospice on morphine gtt. - Current Medication List Current Medications: Active Medications Acetaminophen (Ofirmev Injection -) 1,000 mg IVPB Q6H PRN PRN Reason: FEVER Morphine Sulfate 100 mg/ (Sodium Chloride) 100 mls @ 4 mls/hr IVPB TITR SYLVIA; Protocol Lorazepam (Ativan Injection -) 2 mg IVPUSH Q6H-IV SYLVIA - Objective Vital Signs: Vital Signs Temperature 98.2 F 04/13/18 02:00 Pulse Rate 92 H 04/13/18 02:00 Respiratory Rate 14 04/13/18 02:00 Blood Pressure 111/62 04/13/18 00:00 O2 Sat by Pulse Oximetry (%) 94 L 04/12/18 21:00 Constitutional: Yes: No Distress, Calm Neck: Yes: Supple Cardiovascular: Yes: Regular Rate and Rhythm Respiratory: Yes: Regular, Diminished, On Venti-Mask Gastrointestinal: Yes: Soft, Hypoactive Bowel Sounds Edema: Yes Edema: LLE: Trace, RLE: Trace Labs: CBC, BMP 04/05/18 05:30 04/05/18 05:30 INR, PTT INR 1.19 (0.83-1.09) H 03/27/18 23:30 Problem List - Problems (1) Status post lumbar laminectomy Code(s): Z98.890 - OTHER SPECIFIED POSTPROCEDURAL STATES (2) CAD (coronary artery disease) Code(s): I25.10 - ATHSCL HEART DISEASE OF [place] CORONARY ARTERY W/O ANG PCTRS Qualifiers: Coronary Disease-Associated Artery/Lesion type: [place] artery [place] vs. transplanted heart: [place] heart Associated angina: without angina Qualified Code(s): I25.10 - Atherosclerotic heart disease of [place] coronary artery without angina pectoris (3) Cardiac arrest Code(s): I46.9 - CARDIAC ARREST, CAUSE UNSPECIFIED (4) Encephalopathy acute Code(s): G93.40 - ENCEPHALOPATHY, UNSPECIFIED (5) HLD (hyperlipidemia) Code(s): E78.5 - HYPERLIPIDEMIA, UNSPECIFIED Qualifiers: Hyperlipidemia type: pure hypercholesterolemia Qualified Code(s): E78.00 - Pure hypercholesterolemia, unspecified; E78.0 - Pure hypercholesterolemia (6) HTN (hypertension) Code(s): I10 - ESSENTIAL (PRIMARY) HYPERTENSION Qualifiers: Hypertension type: essential hypertension Qualified Code(s): I10 - Essential (primary) hypertension (7) Hx of CABG Code(s): Z95.1 - PRESENCE OF AORTOCORONARY BYPASS GRAFT (8) Insulin dependent diabetes mellitus Code(s): E11.9 - TYPE 2 DIABETES MELLITUS WITHOUT COMPLICATIONS; Z79.4 - MCC (CURRENT) USE OF INSULIN (9) Demand ischemia Code(s): I24.8 - OTHER FORMS OF ACUTE ISCHEMIC HEART DISEASE Assessment/Plan 03/28/2018 Echocardiography report noted, normal LV systolic function, with LVEF 0f 55%, walll motion cannot be assessed (upon study review there is abnormal septal motion consistent with prior open heart surgery) no significant valvular pathology, normal RV size and fxn. 03/29/2018 CT suspicious for ischemia left posterior circulation ASSESSMENT: 1. Post cardiopulmonary arrest/pulse-less electrical activity, ventricular tachycardia post resuscitation currently ventilator-dependent 2. Post operative day #17 post L1-S1 laminectomy and T12-S1 posterior instrumentation 3. Anoxic brain injury with evidence of acute/subacute CVA on CT of the head, EEG shows spikes in right temporal lobe 4. CAD post CABG angina pectoris with demand ischemia - troponins have peaked 5. LV diastolic dysfunction with class 0 NYHA classification LV failure 6. HTN 7. DM 8. hypercholesterolemia PLAN: 1. Inpatient hospice, morphine gtt, comfort measures on floor 2. Will sign off, please call with questions
[2018-04-13] MEDS: MORPHINE 100 MG in SODIUM CHLORIDE 98 ML IVPB SCH (11:41)
--- NOTE | 2018-04-13 11:52 | PN ---
Teaching Attending Note Name of Resident: China Randle ATTENDING PHYSICIAN STATEMENT I saw and evaluated the patient. I reviewed the resident's note and discussed the case with the resident. I agree with the resident's findings and plan as documented. SUBJECTIVE: Pt seen and examined in the ICU. Extubated, on ventimask and morphine gtt. OBJECTIVE: Vital Signs Period Temp Pulse Resp BP Sys/Martinez Pulse Ox Last 24 Hr 98.2 F-98.8 F 74-92 12-15 97-116/43-62 94-97 Intake & Output 04/10/18 04/11/18 04/12/18 04/13/18 23:59 23:59 23:59 23:59 Intake Total 1324.6 2854.4 1554 32 Output Total 900 1200 1800 500 Balance 424.6 1654.4 -246 -468 Weight 122.2 kg 121.8 kg 122.8 kg Gen: unresponsive Heart: RRR Lung: scattered rhonchi Abd: soft, nontender Ext: + edema CBC, BMP 04/05/18 05:30 04/05/18 05:30 Active Medications Acetaminophen (Ofirmev Injection -) 1,000 mg IVPB Q6H PRN PRN Reason: FEVER Morphine Sulfate 100 mg/ (Sodium Chloride) 100 mls @ 4 mls/hr IVPB TITR SYLVIA; Protocol Last Admin: 04/13/18 11:41 Dose: 4 mg/hr, 4 mls/hr Lorazepam (Ativan Injection -) 2 mg IVPUSH Q6H-IV SYLVIA ASSESSMENT AND PLAN: s/p PEA/VTach Cardiopulmonary Arrest Anoxic Encephalopathy s/p Lumbar Laminectomy CAD s/p CABG +Troponins likely Demand Ischemia LV Systolic/Diastolic Dysfunction HTN DM Hypercholesterolemia CKD - continue comfort measures - can monitor on floor
--- NOTE | 2018-04-13 12:26 | PN ---
Physical Exam: SUBJECTIVE: - Transitioned to comfort care yesterday, extubated OBJECTIVE: Vital Signs Period Temp Pulse Resp BP Sys/Martinez Pulse Ox Last 24 Hr 98.2 F-98.8 F 74-92 12-15 103-116/44-62 94-97 General: Sedated, unresponsive Cards: RRR Pulm: Breathing comfortably with O2 by mask Abd: Soft, non-distended : Jimenez in place Laboratory Results - last 24 hr 04/12/18 11:18 POC Glucometer 266.36976 Active Medications Generic Name Dose Route Start Last Admin Trade Name Freq PRN Reason Stop Dose Admin Acetaminophen 1,000 mg 04/13/18 10:00 Ofirmev Injection - IVPB Q6H PRN FEVER Morphine Sulfate 100 mg/ 100 mls @ 4 mls/hr 04/13/18 10:56 04/13/18 11:41 Sodium Chloride IVPB 4 mg/hr TITR SYLVIA 4 mls/hr Administration Protocol 4 MG/HR Lorazepam 2 mg 04/13/18 15:00 Ativan Injection - IVPUSH Q6H-IV SYLVIA ASSESSMENT/PLAN: Marco Land is a 62yo man with a PMH of CAD s/p CABG, HTN, HLD, IDDM, chronic back pain due to spinal stenosis with rapid neurological decline. He underwent cardiac arrest during a planned surgery on 03/27 with ROSC achieved after 26 minutes of CPR. However, he sustained an anoxic brain injury due to the arrest and has not shown any signs of neurological recovery since his arrest. He was extubated and transitioned to comfort care yesterday per family wishes. Neuro: - CT head on 03/29 and 03/31 with anoxic brain injury and infarct in the left occipital lobe - Morphine drip for comfort - Ativan 2mg Q6hr for seizure prevention CV: - Intraoperative cardiac arrest, 26 min CPR with ROSC and completion of cooling protocol. - Home medications discontinued Pulm: - Extubated to venturi mask - Suctioning of secretions PRN Heme: - SQH and ASA discontinued GI: - TF discontinued - Rectal tube to remain in place to avoid discomfort from frequent cleanings Renal: - Jimenez in place. Will remain to avoid discomfort from frequent cleanings ID: - Antibiotics discontinued Endo: - BGM and insulin discontinued Musc: - Change dressings to back incision PRN for comfort and cleanliness PPx: - Not indicated FEN: - Tube feeds discontinued per family wishes Dispo: - Comfort measures only. Inpatient hospice. Transfer to floor. Code status: DNR/DNI. Comfort measures only. Seen and discussed with Dr Bright. China Randle PGY1 Visit type - Emergency Visit Emergency Visit: No - New Patient This patient is new to me today: No - Critical Care Critical Care patient: Yes Total Critical Care Time (in minutes): 35 Critical Care Statement: The care of this patient involved high complexity decision making to prevent further life threatening deterioration of the patient 's condition and/or to evaluate & treat vital organ system(s) failure or risk of failure.
--- NOTE | 2018-04-13 17:14 | PN ---
Physical Exam: SUBJECTIVE: Patient seen and examined at bedside this morning. Sedated, on venti mask. OBJECTIVE: Vital Signs Period Temp Pulse Resp BP Sys/Martinez Pulse Ox Last 24 Hr 98.2 F-98.8 F 78-97 12-15 111-116/53-62 94-95 GENERAL: The patient is sedated. On venti mask. LUNGS: Coarse breath sounds. HEART: Regular rate and rhythm, S1, S2 without murmur, rub or gallop. ABDOMEN: Soft,obese, nondistended. Active Medications Generic Name Dose Route Start Last Admin Trade Name Freq PRN Reason Stop Dose Admin Acetaminophen 1,000 mg 04/13/18 10:00 Ofirmev Injection - IVPB Q6H PRN FEVER Morphine Sulfate 100 mg/ 100 mls @ 4 mls/hr 04/13/18 10:56 04/13/18 11:41 Sodium Chloride IVPB 4 mg/hr TITR SYLVIA 4 mls/hr Administration Protocol 4 MG/HR Lorazepam 2 mg 04/13/18 15:00 04/13/18 15:31 Ativan Injection - IVPUSH 2 mg Q6H-IV SYLVIA Administration Imaging Echo - LV systolic function is grossly normal. EF = 55%. Regional wall motion abnormalities cannot be excluded due to limited visualization. There is trace mitral regurgitation. There is trace tricuspid regurgitation. There is mild pulmonary hypertension. Head CT w/o contrast (03/31/18) - Evolving left posterior cerebral artery territory acute/subacute infarct. Otherwise, no gross mass lesion or intracranial hemorrhage are identified. There is no shift of the midline structures or evidence of inferior herniation. Poor visualization of the ye- white matter junction. There is also paucity of the cortical sulci the patient' s age. Cannot rule out the brain swelling/edema. The basal cisterns are not effaced. Head CT w/o contrast (03/29/18) - Slightly limited examination, as described above in particular evaluation of the inferior aspect of the posterior fossa. There is suggestion of faint low-attenuation density in the left occipital lobe , medially. An acute infarct cannot be excluded. No gross intracranial hemorrhage is seen. CXR (03/31/18) - Since 03/31/18 at 0506 hours, the endotracheal tube, right jugular line and mediastinal clips and sutures persist. Tubing projects over the chest. There is a large heart, unfolded aorta and prominent central markings. CXR (03/31/18) - Since the prior study of 03/30/18 at 1030 hours, there is slight increase in lung markings at the bases. The endotracheal tube, nasogastric tube and right jugular line persist. CXR (03/27/18) - Since the earlier study of 03/16/2018, the endotracheal tube has been inserted and the tip is well above the leroy. Right jugular line is been inserted and the tip is in the SVC's junction with the right atrium. There are sternal sutures with weak inspiration, increased central markings and prominent mediastinum. There may be some fluid at the right base. There is no sign of a pneumothorax. Microbiology 03/30/18 11:00 Back Gram Stain - Final 03/30/18 11:00 Back Wound Culture - Preliminary NO GROWTH OBTAINED AFTER 24 HOURS INCUBATION, REINCUBATED. 03/29/18 17:30 Urine - Urine Jimenez Urine Culture - Final NO GROWTH OBTAINED 03/29/18 17:30 Blood - Central Line Blood Culture - Preliminary NO GROWTH OBTAINED AFTER 24 HOURS, INCUBATION TO CONTINUE FOR 4 DAYS. 03/29/18 17:30 Blood - Central Line Blood Culture - Preliminary NO GROWTH OBTAINED AFTER 24 HOURS, INCUBATION TO CONTINUE FOR 4 DAYS. ASSESSMENT/PLAN: Patient is a 62 year old male with past medical history of chronic low back pain , CAD s/p CABG on plavix (held prior to surgery), HTN, HLD, DM, and BPH presented as outpatient for planned L1-S1 laminectomy and T12-S1 posterior instrumented spinal fusion. During the surgery, patient became pulseless, ACLS protocol initiated, and ROSC achieved. #s/p cardiopulmonary arrest, transitioned to comfort care measures -Patient was extubated yesterday, placed on venturi mask -suctioning of secretions PRN. -Discontinued home medications -Discontinued tube feeds -Morphine drip at 6mg -Ativan 2mg q6h -For inpatient hospice. Transfer to floor. #ROSC s/p cardiopulmonary arrest #Anoxic brain injury #Spinal Wound #Leukocytosis: #CAD s/p CABG #Hypertension #DM #MIAN Visit type - Emergency Visit Emergency Visit: Yes ED Registration Date: 03/27/18 Care time: The patient presented to the Emergency Department on the above date and was hospitalized for further evaluation of their emergent condition. - New Patient This patient is new to me today: Yes Date on this admission: 04/14/18 - Critical Care Critical Care patient: No
--- NOTE | 2018-04-13 18:02 | PN ---
Teaching Attending Note Name of Resident: Isabella Velazquez ATTENDING PHYSICIAN STATEMENT I saw and evaluated the patient. I reviewed the resident's note and discussed the case with the resident. I agree with the resident's findings and plan as documented. SUBJECTIVE:resting comfortable OBJECTIVE: Last Vital Signs Temp Pulse Resp BP Pulse Ox 98.2 F 97 H 12 111/62 95 04/13/18 02:00 04/13/18 16:00 04/13/18 16:00 04/13/18 00:00 04/13/18 09:00 General resting comfortable CV S1 S2 RRR no murmur/rub/gallop lungs CTA anteriorly, mechanical breath sounds ASSESSMENT AND PLAN: 62yo M with PMH Severe stenosis L2-L3 and L3-L4, HTN, DM and CAD S/p CABG presented for scheduled laminectomy however case was aborted due to de- saturation during the procedure and patient was flipped from prone position and noted to loose pulse and was PEA on the monitor. Code 99 was called and CPR initiated. received 1 shock and started on amio. ROSC achieved after approx 25mins. pt was started on hypothermia protocol and goal temp was achieved at 0800 this morning. 1. s/p cardiac arrest- s/p compassionate extubation yesterday. on non- rebreather. morphine ggt titrated for comfort 6mg now. ativan. will cont comfort measures. inpatient hospice. The care of this patient involved high complexity decision making to prevent further life threatening deterioration of the patient's condition and/or to evaluate & treat vital organ system(s) failure or risk of failure. 34 mins
[2018-04-14] MEDS: MORPHINE 100 MG in SODIUM CHLORIDE 98 ML IVPB SCH ×2 (04:36→11:36)
[2018-04-14] MEDS: LORazepam 2 MG/ML SDV VIAL IVPUSH SCH ×5 (04:37→21:48)
[2018-04-14] MEDS: SCOPOLAMINE HYDROBROMIDE 1 PATCH PATCH.TD72 TD SCH (11:30)
--- NOTE | 2018-04-14 12:32 | PN ---
Teaching Attending Note Name of Resident: China Randle ATTENDING PHYSICIAN STATEMENT I saw and evaluated the patient. I reviewed the resident's note and discussed the case with the resident. I agree with the resident's findings and plan as documented. SUBJECTIVE: NAD on MS drip. On comfort measures. OBJECTIVE: Intake & Output 04/11/18 04/12/18 04/13/18 04/14/18 23:59 23:59 23:59 23:59 Intake Total 2854.4 1554 152 72 Output Total 1200 1800 1100 1500 Balance 1654.4 -246 -948 -1428 Weight 268 lb 8.368 oz 270 lb 11.642 oz Last Vital Signs Temp Pulse Resp BP Pulse Ox 97.2 F L 65 14 124/42 L 95 04/14/18 06:00 04/14/18 06:00 04/14/18 06:00 04/14/18 06:00 04/14/18 07:29 Active Medications Acetaminophen (Ofirmev Injection -) 1,000 mg IVPB Q6H PRN PRN Reason: FEVER Morphine Sulfate 100 mg/ (Sodium Chloride) 100 mls @ 4 mls/hr IVPB TITR SYLVIA; Protocol Last Admin: 04/14/18 11:36 Dose: Not Given Lorazepam (Ativan Injection -) 2 mg IVPUSH Q6H-IV SYLVIA Last Admin: 04/14/18 10:18 Dose: 2 mg Scopolamine HBr (Transderm-Scop -) 1 patch TD Q72H SYLVIA Last Admin: 04/14/18 11:30 Dose: 1 patch Gen: Minimally unresponsive Heart: RRR Lung: scattered rhonchi Abd: soft, nontender Ext: + edema ASSESSMENT AND PLAN: s/p PEA/VTach Cardiopulmonary Arrest Anoxic Encephalopathy s/p Lumbar Laminectomy CAD s/p CABG +Troponins likely Demand Ischemia LV Systolic/Diastolic Dysfunction HTN DM Hypercholesterolemia CKD - continue comfort measures - can monitor on floor Dr Hsu
--- NOTE | 2018-04-14 13:49 | PN ---
Physical Exam: SUBJECTIVE: - No acute events overnight - Morphine drip at 7 this morning from 6 yesterday OBJECTIVE: Vital Signs Period Temp Pulse Resp BP Sys/Martinez Pulse Ox Last 24 Hr 97.2 F-98.0 F 65-97 12-14 124/42 95-95 General: Sedated, unresponsive to noxious stimuli Cards: RRR Pulm: Breathing comfortably with O2 by mask Abd: Soft, non-distended : Jimenez in place Active Medications Generic Name Dose Route Start Last Admin Trade Name Freq PRN Reason Stop Dose Admin Acetaminophen 1,000 mg 04/13/18 10:00 Ofirmev Injection - IVPB Q6H PRN FEVER Morphine Sulfate 100 mg/ 100 mls @ 4 mls/hr 04/13/18 10:56 04/14/18 11:36 Sodium Chloride IVPB Not Given TITR SYLVIA Protocol 4 MG/HR Lorazepam 2 mg 04/13/18 15:00 04/14/18 10:18 Ativan Injection - IVPUSH 2 mg Q6H-IV SYLVIA Administration Scopolamine HBr 1 patch 04/14/18 10:15 04/14/18 11:30 Transderm-Scop - TD 1 patch Q72H SYLVIA Administration ASSESSMENT/PLAN: Marco Land is a 62yo man with a PMH of CAD s/p CABG, HTN, HLD, IDDM, chronic back pain due to spinal stenosis with rapid neurological decline. He underwent cardiac arrest during a planned surgery on 03/27 with ROSC achieved after 26 minutes of CPR. However, he sustained an anoxic brain injury due to the arrest and has not shown any signs of neurological recovery since his arrest. He was extubated and transitioned to comfort care on 04/12/18 at 2:30pm per family wishes. Neuro: - CT head on 03/29 and 03/31 with anoxic brain injury and infarct in the left occipital lobe - Morphine drip for comfort - Ativan 2mg Q6hr for seizure prevention CV: - Intraoperative cardiac arrest, 26 min CPR with ROSC and completion of cooling protocol. - Home medications discontinued Pulm: - Extubated to venturi mask - Suctioning of secretions PRN Heme: - SQH and ASA discontinued GI: - TF discontinued - Rectal tube to remain in place to avoid discomfort from frequent cleanings Renal: - Jimenez in place. Will remain to avoid discomfort from frequent cleanings ID: - Antibiotics discontinued Endo: - BGM and insulin discontinued Musc: - Change dressings to back incision PRN for comfort and cleanliness PPx: - Not indicated FEN: - Tube feeds discontinued per family wishes Dispo: - Comfort measures only. Inpatient hospice. Transfer to floor pending available bed. Code status: DNR/DNI. Comfort measures only. Seen and discussed with Dr Hsu. China Randle PGY1 Visit type - Emergency Visit Emergency Visit: No - New Patient This patient is new to me today: No - Critical Care Critical Care patient: Yes Total Critical Care Time (in minutes): 35 Critical Care Statement: The care of this patient involved high complexity decision making to prevent further life threatening deterioration of the patient 's condition and/or to evaluate & treat vital organ system(s) failure or risk of failure.
--- NOTE | 2018-04-14 13:59 | PN ---
Physical Exam: SUBJECTIVE: Patient seen and examined at bedside this morning. Sedated, on venturi mask. OBJECTIVE: Vital Signs Period Temp Pulse Resp BP Sys/Martinez Pulse Ox Last 24 Hr 97.2 F-98.0 F 65-97 12-14 124/42 95-95 GENERAL: The patient is sedated. On venti mask. LUNGS: Coarse breath sounds. HEART: Regular rate and rhythm, S1, S2 without murmur, rub or gallop. Active Medications Generic Name Dose Route Start Last Admin Trade Name Freq PRN Reason Stop Dose Admin Acetaminophen 1,000 mg 04/13/18 10:00 Ofirmev Injection - IVPB Q6H PRN FEVER Morphine Sulfate 100 mg/ 100 mls @ 4 mls/hr 04/13/18 10:56 04/14/18 11:36 Sodium Chloride IVPB Not Given TITR SYLVIA Protocol 4 MG/HR Lorazepam 2 mg 04/13/18 15:00 04/14/18 10:18 Ativan Injection - IVPUSH 2 mg Q6H-IV SYLVIA Administration Scopolamine HBr 1 patch 04/14/18 10:15 04/14/18 11:30 Transderm-Scop - TD 1 patch Q72H SYLVIA Administration Imaging Echo - LV systolic function is grossly normal. EF = 55%. Regional wall motion abnormalities cannot be excluded due to limited visualization. There is trace mitral regurgitation. There is trace tricuspid regurgitation. There is mild pulmonary hypertension. Head CT w/o contrast (03/31/18) - Evolving left posterior cerebral artery territory acute/subacute infarct. Otherwise, no gross mass lesion or intracranial hemorrhage are identified. There is no shift of the midline structures or evidence of inferior herniation. Poor visualization of the ye- white matter junction. There is also paucity of the cortical sulci the patient' s age. Cannot rule out the brain swelling/edema. The basal cisterns are not effaced. Head CT w/o contrast (03/29/18) - Slightly limited examination, as described above in particular evaluation of the inferior aspect of the posterior fossa. There is suggestion of faint low-attenuation density in the left occipital lobe , medially. An acute infarct cannot be excluded. No gross intracranial hemorrhage is seen. CXR (03/31/18) - Since 03/31/18 at 0506 hours, the endotracheal tube, right jugular line and mediastinal clips and sutures persist. Tubing projects over the chest. There is a large heart, unfolded aorta and prominent central markings. CXR (03/31/18) - Since the prior study of 03/30/18 at 1030 hours, there is slight increase in lung markings at the bases. The endotracheal tube, nasogastric tube and right jugular line persist. CXR (03/27/18) - Since the earlier study of 03/16/2018, the endotracheal tube has been inserted and the tip is well above the leroy. Right jugular line is been inserted and the tip is in the SVC's junction with the right atrium. There are sternal sutures with weak inspiration, increased central markings and prominent mediastinum. There may be some fluid at the right base. There is no sign of a pneumothorax. Microbiology 03/30/18 11:00 Back Gram Stain - Final 03/30/18 11:00 Back Wound Culture - Preliminary NO GROWTH OBTAINED AFTER 24 HOURS INCUBATION, REINCUBATED. 03/29/18 17:30 Urine - Urine Jimenez Urine Culture - Final NO GROWTH OBTAINED 03/29/18 17:30 Blood - Central Line Blood Culture - Preliminary NO GROWTH OBTAINED AFTER 24 HOURS, INCUBATION TO CONTINUE FOR 4 DAYS. 03/29/18 17:30 Blood - Central Line Blood Culture - Preliminary NO GROWTH OBTAINED AFTER 24 HOURS, INCUBATION TO CONTINUE FOR 4 DAYS. ASSESSMENT/PLAN: Patient is a 62 year old male with past medical history of chronic low back pain , CAD s/p CABG on plavix (held prior to surgery), HTN, HLD, DM, and BPH presented as outpatient for planned L1-S1 laminectomy and T12-S1 posterior instrumented spinal fusion. During the surgery, patient became pulseless, ACLS protocol initiated, and ROSC achieved. #s/p cardiopulmonary arrest, transitioned to comfort care measures -Patient was extubated yesterday, placed on venturi mask -suctioning of secretions PRN. -Discontinued home medications -Discontinued tube feeds -Morphine drip at 7mg -Ativan 2mg q6h -For inpatient hospice. Transfer to floor. #ROSC s/p cardiopulmonary arrest #Anoxic brain injury #Spinal Wound #Leukocytosis: #CAD s/p CABG #Hypertension #DM #MIAN Visit type - Emergency Visit Emergency Visit: Yes ED Registration Date: 03/27/18 Care time: The patient presented to the Emergency Department on the above date and was hospitalized for further evaluation of their emergent condition. - New Patient This patient is new to me today: Yes Date on this admission: 04/14/18 - Critical Care Critical Care patient: No
[2018-04-14] MEDS ORDERED: MIDAZOLAM HCL 5 MG/1 ML Single Dose Vial ONE (14:59)
--- NOTE | 2018-04-14 17:41 | PN ---
Teaching Attending Note Name of Resident: Isabella Velazquez ATTENDING PHYSICIAN STATEMENT I saw and evaluated the patient. I reviewed the resident's note and discussed the case with the resident. I agree with the resident's findings and plan as documented. SUBJECTIVE:resting comfortable OBJECTIVE: Last Vital Signs Temp Pulse Resp BP Pulse Ox 97.2 F L 65 14 124/42 L 95 04/14/18 06:00 04/14/18 06:00 04/14/18 06:00 04/14/18 06:00 04/14/18 07:29 General resting comfortable CV S1 S2 RRR no murmur/rub/gallop lungs CTA anteriorly, mechanical breath sounds ASSESSMENT AND PLAN: 62yo M with PMH Severe stenosis L2-L3 and L3-L4, HTN, DM and CAD S/p CABG presented for scheduled laminectomy however case was aborted due to de- saturation during the procedure and patient was flipped from prone position and noted to loose pulse and was PEA on the monitor. Code 99 was called and CPR initiated. received 1 shock and started on amio. ROSC achieved after approx 25mins. pt was started on hypothermia protocol and goal temp was achieved at 0800 this morning. 1. s/p cardiac arrest- s/p compassionate extubation on 04/12 . on non- rebreather. morphine ggt titrated for comfort. ativan. will cont comfort measures. inpatient hospice. can monitor on floors The care of this patient involved high complexity decision making to prevent further life threatening deterioration of the patient's condition and/or to evaluate & treat vital organ system(s) failure or risk of failure. 35 mins
[2018-04-14] MEDS ORDERED: MORPHINE 100 MG/100 ML MG ONE (18:06)
[2018-04-14] MEDS ORDERED: ACETAMINOPHEN 1000 MG/100 ML VIAL (NON FORMULARY) IVPB PRN (23:36)
[2018-04-15] MEDS: MORPHINE 100 MG in SODIUM CHLORIDE 98 ML IVPB SCH ×3 (03:20→23:28)
[2018-04-15] MEDS: LORazepam 2 MG/ML SDV VIAL IVPUSH SCH ×4 (03:21→20:39)
[2018-04-15] MEDS ORDERED: MORPHINE 100 MG/100 ML MG ONE ×2 (09:12→23:26)
--- NOTE | 2018-04-15 14:33 | PN ---
Progress Note (short form) - Note Progress Note: resting comfortable Current Medications Generic Name Dose Route Start Last Admin Trade Name Freq PRN Reason Stop Dose Admin Acetaminophen 1,000 mg 04/14/18 23:36 Ofirmev Injection - IVPB Q6H PRN FEVER Morphine Sulfate 100 mg/ 100 mls @ 4 mls/hr 04/14/18 23:45 04/15/18 09:35 Sodium Chloride IVPB 7 mg/hr TITR SYLVIA 7 mls/hr Administration Protocol 4 MG/HR Lorazepam 2 mg 04/15/18 03:00 04/15/18 09:34 Ativan Injection - IVPUSH 2 mg Q6H-IV SYLVIA Administration Scopolamine HBr 1 patch 04/14/18 10:15 04/14/18 11:30 Transderm-Scop - TD 1 patch Q72H SYLVIA Administration Last Vital Signs Temp Pulse Resp BP Pulse Ox 99.5 F 88 5 L 103/44 L 95 04/15/18 09:42 04/15/18 09:42 04/15/18 09:42 04/15/18 09:42 04/15/18 09:00 General resting comfortable CV S1 S2 RRR no murmur/rub/gallop lungs rhoncherous diffusely ASSESSMENT AND PLAN: 62yo M with PMH Severe stenosis L2-L3 and L3-L4, HTN, DM and CAD S/p CABG presented for scheduled laminectomy however case was aborted due to de- saturation during the procedure and patient was flipped from prone position and noted to loose pulse and was PEA on the monitor. Code 99 was called and CPR initiated. received 1 shock and started on amio. ROSC achieved after approx 25mins. pt was started on hypothermia protocol and goal temp was achieved at 0800 this morning. 1. s/p cardiac arrest- s/p compassionate extubation on 04/12 . on non- rebreather. morphine ggt titrated for comfort (7mg). ativan Q8H. scopolamine patch for secretions. will cont comfort measures. inpatient hospice. 2. surrounded by family. All questions answered Visit type - Emergency Visit Emergency Visit: Yes ED Registration Date: 03/27/18 Care time: The patient presented to the Emergency Department on the above date and was hospitalized for further evaluation of their emergent condition. - New Patient This patient is new to me today: No - Critical Care Critical Care patient: No - Discharge Referral Referred to [facility] No
[2018-04-16] MEDS: LORazepam 2 MG/ML SDV VIAL IVPUSH SCH ×4 (03:53→21:07)
--- NOTE | 2018-04-16 12:19 | PN ---
Physical Exam: SUBJECTIVE: Patient seen and examined at bedside this morning. No acute events overnight. Patient remains sedated and on venturi mask. OBJECTIVE: Vital Signs Period Temp Pulse Resp BP Sys/Martinez Pulse Ox Last 24 Hr 98.1 F-100.0 F 80-86 8-10 110-139/57-58 95-99 GENERAL: The patient is sedated. On venti mask. LUNGS: Coarse breath sounds. HEART: Regular rate and rhythm, S1, S2 without murmur, rub or gallop. Active Medications Generic Name Dose Route Start Last Admin Trade Name Freq PRN Reason Stop Dose Admin Acetaminophen 1,000 mg 04/14/18 23:36 Ofirmev Injection - IVPB Q6H PRN FEVER Morphine Sulfate 100 mg/ 100 mls @ 4 mls/hr 04/14/18 23:45 04/15/18 23:28 Sodium Chloride IVPB 7 mg/hr TITR SYLVIA 7 mls/hr Administration Protocol 4 MG/HR Lorazepam 2 mg 04/15/18 03:00 04/16/18 09:52 Ativan Injection - IVPUSH 2 mg Q6H-IV SYLVIA Administration Scopolamine HBr 1 patch 04/14/18 10:15 04/14/18 11:30 Transderm-Scop - TD 1 patch Q72H SYLVIA Administration Imaging Echo - LV systolic function is grossly normal. EF = 55%. Regional wall motion abnormalities cannot be excluded due to limited visualization. There is trace mitral regurgitation. There is trace tricuspid regurgitation. There is mild pulmonary hypertension. Head CT w/o contrast (03/31/18) - Evolving left posterior cerebral artery territory acute/subacute infarct. Otherwise, no gross mass lesion or intracranial hemorrhage are identified. There is no shift of the midline structures or evidence of inferior herniation. Poor visualization of the ye- white matter junction. There is also paucity of the cortical sulci the patient' s age. Cannot rule out the brain swelling/edema. The basal cisterns are not effaced. Head CT w/o contrast (03/29/18) - Slightly limited examination, as described above in particular evaluation of the inferior aspect of the posterior fossa. There is suggestion of faint low-attenuation density in the left occipital lobe , medially. An acute infarct cannot be excluded. No gross intracranial hemorrhage is seen. CXR (03/31/18) - Since 03/31/18 at 0506 hours, the endotracheal tube, right jugular line and mediastinal clips and sutures persist. Tubing projects over the chest. There is a large heart, unfolded aorta and prominent central markings. CXR (03/31/18) - Since the prior study of 03/30/18 at 1030 hours, there is slight increase in lung markings at the bases. The endotracheal tube, nasogastric tube and right jugular line persist. CXR (03/27/18) - Since the earlier study of 03/16/2018, the endotracheal tube has been inserted and the tip is well above the leroy. Right jugular line is been inserted and the tip is in the SVC's junction with the right atrium. There are sternal sutures with weak inspiration, increased central markings and prominent mediastinum. There may be some fluid at the right base. There is no sign of a pneumothorax. Microbiology 03/30/18 11:00 Back Gram Stain - Final 03/30/18 11:00 Back Wound Culture - Preliminary NO GROWTH OBTAINED AFTER 24 HOURS INCUBATION, REINCUBATED. 03/29/18 17:30 Urine - Urine Jimenez Urine Culture - Final NO GROWTH OBTAINED 03/29/18 17:30 Blood - Central Line Blood Culture - Preliminary NO GROWTH OBTAINED AFTER 24 HOURS, INCUBATION TO CONTINUE FOR 4 DAYS. 03/29/18 17:30 Blood - Central Line Blood Culture - Preliminary NO GROWTH OBTAINED AFTER 24 HOURS, INCUBATION TO CONTINUE FOR 4 DAYS. ASSESSMENT/PLAN: Patient is a 62 year old male with past medical history of chronic low back pain , CAD s/p CABG on plavix (held prior to surgery), HTN, HLD, DM, and BPH presented as outpatient for planned L1-S1 laminectomy and T12-S1 posterior instrumented spinal fusion. During the surgery, patient became pulseless, ACLS protocol initiated, and ROSC achieved. #s/p cardiopulmonary arrest, transitioned to comfort care measures -Patient was extubated yesterday, placed on venturi mask -suctioning of secretions PRN. -Discontinued home medications -Discontinued tube feeds -Morphine drip at 7mg -Ativan 2mg q6h -For inpatient hospice. #ROSC s/p cardiopulmonary arrest #Anoxic brain injury #Spinal Wound #Leukocytosis: #CAD s/p CABG #Hypertension #DM #MIAN Visit type - Emergency Visit Emergency Visit: Yes ED Registration Date: 03/27/18 Care time: The patient presented to the Emergency Department on the above date and was hospitalized for further evaluation of their emergent condition. - New Patient This patient is new to me today: Yes Date on this admission: 04/17/18 - Critical Care Critical Care patient: No
--- NOTE | 2018-04-16 12:27 | PN ---
Teaching Attending Note Name of Resident: Isabella Velazquez ATTENDING PHYSICIAN STATEMENT I saw and evaluated the patient. I reviewed the resident's note and discussed the case with the resident. I agree with the resident's findings and plan as documented. SUBJECTIVE:resting comfortbale OBJECTIVE: Last Vital Signs Temp Pulse Resp BP Pulse Ox 98.7 F 80 8 L 110/57 L 99 04/16/18 10:00 04/16/18 10:00 04/16/18 10:00 04/16/18 10:00 04/16/18 12:08 General resting comfortable CV S1 S2 RRR no murmur/rub/gallop lungs rhoncherous diffusely ASSESSMENT AND PLAN: 62yo M with PMH Severe stenosis L2-L3 and L3-L4, HTN, DM and CAD S/p CABG presented for scheduled laminectomy however case was aborted due to de- saturation during the procedure and patient was flipped from prone position and noted to loose pulse and was PEA on the monitor. Code 99 was called and CPR initiated. received 1 shock and started on amio. ROSC achieved after approx 25mins. pt was started on hypothermia protocol and goal temp was achieved at 0800 this morning. 1. s/p cardiac arrest- s/p compassionate extubation on 04/12 . on non- rebreather. morphine ggt titrated for comfort (7mg). ativan Q8H. scopolamine patch for secretions. will cont comfort measures. inpatient hospice.
[2018-04-16] MEDS ORDERED: MORPHINE 100 MG/100 ML MG ONE (14:02)
[2018-04-16] MEDS: MORPHINE 100 MG in SODIUM CHLORIDE 98 ML IVPB SCH ×2 (15:14→23:45)
[2018-04-17] MEDS: LORazepam 2 MG/ML SDV VIAL IVPUSH SCH ×4 (03:09→21:04)
[2018-04-17] MEDS ORDERED: MORPHINE 100 MG/100 ML MG ONE ×2 (04:01→16:16)
[2018-04-17] MEDS: MORPHINE 100 MG in SODIUM CHLORIDE 98 ML IVPB SCH ×2 (04:10→18:48)
[2018-04-17] MEDS: SCOPOLAMINE HYDROBROMIDE 1 PATCH PATCH.TD72 TD SCH (09:19)
--- NOTE | 2018-04-17 10:58 | PN ---
Teaching Attending Note Name of Resident: Momo Navarro ATTENDING PHYSICIAN STATEMENT I saw and evaluated the patient. I reviewed the resident's note and discussed the case with the resident. I agree with the resident's findings and plan as documented. SUBJECTIVE:resting comfortable OBJECTIVE: Last Vital Signs Temp Pulse Resp BP Pulse Ox 97.6 F 80 12 98/54 L 97 04/17/18 09:17 04/17/18 07:24 04/17/18 09:17 04/17/18 09:17 04/17/18 09:00 General resting comfortable CV S1 S2 RRR no murmur/rub/gallop lungs mild rhonchi ASSESSMENT AND PLAN: 62yo M with PMH Severe stenosis L2-L3 and L3-L4, HTN, DM and CAD S/p CABG presented for scheduled laminectomy however case was aborted due to de- saturation during the procedure and patient was flipped from prone position and noted to loose pulse and was PEA on the monitor. Code 99 was called and CPR initiated. received 1 shock and started on amio. ROSC achieved after approx 25mins. pt was started on hypothermia protocol and goal temp was achieved at 0800 this morning. 1. s/p cardiac arrest- s/p compassionate extubation on 04/12 . on non- rebreather. morphine ggt titrated for comfort (7mg). ativan Q8H. scopolamine patch for secretions. will cont comfort measures. inpatient hospice.
--- NOTE | 2018-04-17 17:27 | PN ---
Physical Exam: SUBJECTIVE: Patient seen and examined at bedside. No changes from prior exam. OBJECTIVE: Vital Signs Period Temp Pulse Resp BP Sys/Martinez Pulse Ox Last 24 Hr 97.6 F-99.0 F 75-82 5-19 96-126/44-70 94-100 GENERAL: The patient is sedated. On venti mask. LUNGS: Coarse breath sounds. HEART: Regular rate and rhythm, S1, S2 without murmur, rub or gallop. Active Medications Generic Name Dose Route Start Last Admin Trade Name Freq PRN Reason Stop Dose Admin Acetaminophen 1,000 mg 04/14/18 23:36 Ofirmev Injection - IVPB Q6H PRN FEVER Morphine Sulfate 100 mg/ 100 mls @ 4 mls/hr 04/14/18 23:45 04/17/18 04:10 Sodium Chloride IVPB 7 mg/hr TITR SYLVIA 7 mls/hr Administration Protocol 4 MG/HR Lorazepam 2 mg 04/15/18 03:00 04/17/18 14:59 Ativan Injection - IVPUSH 2 mg Q6H-IV SYLVIA Administration Scopolamine HBr 1 patch 04/14/18 10:15 04/17/18 09:19 Transderm-Scop - TD 1 patch Q72H SYLVIA Administration ASSESSMENT/PLAN: #s/p cardiopulmonary arrest, transitioned to comfort care measures -Patient was extubated yesterday, placed on venturi mask -suctioning of secretions PRN. -Discontinued home medications -Discontinued tube feeds -Morphine drip at 7mg -Ativan 2mg q6h -For inpatient hospice. Visit type - Emergency Visit Emergency Visit: No - New Patient This patient is new to me today: No - Critical Care Critical Care patient: No
--- NOTE | 2018-04-17 19:05 | PN ---
Progress Note (short form) - Note Progress Note: 62M s/p L1-S1 laminectomies; T12-S1 posterior instrumented spinal fusion POD # 21. No intra-operative surgical complications. Intra-operative cardiopulmary instability most consistent with pulmonary embolism. Case aborted intra-operatively, just moments prior to bone grafting & wound closure. Instrumentation had been completed. Patient flipped to supine position and CPR administered for ~20 minutes. Sonorous breathing s/p extubation. Pt. remains unresponsive to verbal stimuli. All labs and vitals reviewed. PE: NAD; does not follow commands. Spine: Dressing C/D/I. Unable to assess LE NV status secondary to mental status. A/P: 62M s/p L1-S1 laminectomies; T12-S1 posterior instrumented spinal fusion POD #21. -Pain control. -DVT PPx: - Mechanical: NEYDA's, SCD's. - Chemical: per primary team. -Incentive spirometry; respiratory care. -General nursing. -Supportive care per ICU, medical hospitalist team. -Will follow. Alex Rodriguez MD (Orthopaedic Surgery).
[2018-04-18] MEDS: MORPHINE 100 MG in SODIUM CHLORIDE 98 ML IVPB SCH ×2 (01:59→09:52)
[2018-04-18] MEDS: LORazepam 2 MG/ML SDV VIAL IVPUSH SCH ×4 (02:00→21:33)
[2018-04-18] MEDS ORDERED: MORPHINE 100 MG/100 ML MG ONE (09:43)
--- NOTE | 2018-04-18 11:09 | PN ---
Teaching Attending Note Name of Resident: Rashawn Canas ATTENDING PHYSICIAN STATEMENT I saw and evaluated the patient. I reviewed the resident's note and discussed the case with the resident. I agree with the resident's findings and plan as documented. SUBJECTIVE:resting comfortable OBJECTIVE: Last Vital Signs Temp Pulse Resp BP Pulse Ox 98.0 F 82 16 109/51 L 97 04/17/18 23:00 04/17/18 17:17 04/17/18 23:00 04/17/18 23:00 04/17/18 20:12 General resting comfortable CV S1 S2 RRR no murmur/rub/gallop lungs rhonchi on the L. decreased breath sounds on the R Extremities trace pitting edema neuro does not withdraw to pain ASSESSMENT AND PLAN: 62yo M with PMH Severe stenosis L2-L3 and L3-L4, HTN, DM and CAD S/p CABG presented for scheduled laminectomy however case was aborted due to de- saturation during the procedure and patient was flipped from prone position and noted to loose pulse and was PEA on the monitor. Code 99 was called and CPR initiated. received 1 shock and started on amio. ROSC achieved after approx 25mins. pt was started on hypothermia protocol. pt did not clinically improved with signs of anoxic brain injury. Family decided on comfort measures and was evaluated for inpatient hospice which he was denied. 1. s/p cardiac arrest- s/p compassionate extubation on 04/12 . on non- rebreather. morphine ggt titrated for comfort (7mg). ativan Q8H. scopolamine patch for secretions. on comfort measures. pt was evaluated for inpatient hospice which he was denied. SW to speak with family about SNF options
--- NOTE | 2018-04-18 20:12 | PN ---
Physical Exam: SUBJECTIVE: Patient seen and examined at bedside. Resting on morphine drip. On comfort measures. OBJECTIVE: Vital Signs Period Temp Pulse Resp BP Sys/Martinez Pulse Ox Last 24 Hr 98.0 F-99 F 83-87 16-20 109-123/50-55 94-97 GENERAL: Nonresponsive to stimuli. HEAD: NC/AT EYES: Pupils not reactive to light. LUNGS: diffuse Rhonchi throughout. HEART: RRR No MRG S1S2 ABDOMEN: Soft, ND, NT, No HSM SKIN: Warm, dry, normal turgor, no rashes or lesions noted Active Medications Generic Name Dose Route Start Last Admin Trade Name Freq PRN Reason Stop Dose Admin Acetaminophen 1,000 mg 04/14/18 23:36 Ofirmev Injection - IVPB Q6H PRN FEVER Morphine Sulfate 100 mg/ 100 mls @ 4 mls/hr 04/14/18 23:45 04/18/18 09:52 Sodium Chloride IVPB 7 mg/hr TITR SYLVIA 7 mls/hr Administration Protocol 4 MG/HR Lorazepam 2 mg 04/15/18 03:00 04/18/18 15:13 Ativan Injection - IVPUSH 2 mg Q6H-IV SYLVIA Administration Scopolamine HBr 1 patch 04/14/18 10:15 04/17/18 09:19 Transderm-Scop - TD 1 patch Q72H SYLVIA Administration ASSESSMENT/PLAN: #s/p cardiopulmonary arrest, transitioned to comfort care measures -On venturi mask -suctioning of secretions PRN. -Discontinued home medications -Discontinued tube feeds -Morphine drip at 7mg -Ativan 2mg q6h -For inpatient hospice. Dispo: Comfort Care Measures Only Visit type - Emergency Visit Emergency Visit: No - New Patient This patient is new to me today: Yes Date on this admission: 04/18/18 - Critical Care Critical Care patient: No - Discharge Referral Referred to [facility] Med [facility] No
[2018-04-19] MEDS ORDERED: MORPHINE 100 MG/100 ML MG ONE ×2 (00:15→14:37)
[2018-04-19] MEDS: MORPHINE 100 MG in SODIUM CHLORIDE 98 ML IVPB SCH (00:21)
[2018-04-19] MEDS: LORazepam 2 MG/ML SDV VIAL IVPUSH SCH ×3 (02:56→14:39)
--- NOTE | 2018-04-19 10:55 | PN ---
Progress Note (short form) - Note Progress Note: Remains comatose Hypoxic encephalopathy. Continue routine nursing
--- NOTE | 2018-04-19 12:56 | PN ---
Teaching Attending Note Name of Resident: Rashawn Canas ATTENDING PHYSICIAN STATEMENT I saw and evaluated the patient. I reviewed the resident's note and discussed the case with the resident. I agree with the resident's findings and plan as documented. SUBJECTIVE:some agonal breathing noted OBJECTIVE: Last Vital Signs Temp Pulse Resp BP Pulse Ox 98.2 F 89 20 129/52 L 93 L 04/19/18 09:45 04/19/18 09:45 04/19/18 09:45 04/19/18 09:45 04/18/18 21:00 General resting comfortable, some agonal breathing CV S1 S2 RRR no murmur/rub/gallop lungs diffuse rhonchi anteriorly. poor inspiratory effort Extremities trace pitting edema neuro does not withdraw to pain ASSESSMENT AND PLAN: 62yo M with PMH Severe stenosis L2-L3 and L3-L4, HTN, DM and CAD S/p CABG presented for scheduled laminectomy however case was aborted due to de- saturation during the procedure and patient was flipped from prone position and noted to loose pulse and was PEA on the monitor. Code 99 was called and CPR initiated. received 1 shock and started on amio. ROSC achieved after approx 25mins. pt was started on hypothermia protocol. pt did not clinically improved with signs of anoxic brain injury. Family decided on comfort measures and was evaluated for inpatient hospice which he was denied. 1. s/p cardiac arrest- s/p compassionate extubation on 04/12 . on non- rebreather. will ask RN to increase morphine ggt for comfort. currently on 7mg. ativan Q8H. scopolamine patch for secretions. on comfort measures. pt was evaluated for inpatient hospice which he was denied. SW to speak with family about SNF options
[2018-04-19 14:40] VITALS: BP 117/68; PULSE 91; TEMP 98.5
--- NOTE | 2018-04-19 20:00 | PN ---
Progress Note (short form) - Note Progress Note: Paged to examine patient at 7:45. Unresponsive, even to painful stimuli. Pupils fixed and non reactive. Patient has no spontaneous breathing, no heart sounds or breath sounds heard. No carotid or femoral pulses present. Time of pronounced at 7:50 pm on 04/19/18 Family notified by nursing staff. Grievance services offered to family.
--- NOTE | 2018-04-19 20:15 | PN ---
Physical Exam: SUBJECTIVE: Patient seen and examined this AM at bedside. Remains on morphine drip. Comfort care measures only. OBJECTIVE: Vital Signs Period Temp Pulse Resp BP Sys/Martinez Pulse Ox Last 24 Hr 98.2 F-98.7 F 86-91 18-20 117-129/52-94 90-93 GENERAL: Nonresponsive to stimuli., on Venti mask. HEAD: NC/AT EYES: Pupils not reactive to light. LUNGS: diffuse Rhonchi throughout. HEART: RRR No MRG S1S2 ABDOMEN: Soft, ND, NT, No HSM SKIN: Warm, dry, normal turgor, no rashes or lesions noted EXTREMITIES: 2+ edema b/l lower extremities Active Medications Generic Name Dose Route Start Last Admin Trade Name Freq PRN Reason Stop Dose Admin Acetaminophen 1,000 mg 04/14/18 23:36 Ofirmev Injection - IVPB Q6H PRN FEVER Morphine Sulfate 100 mg/ 100 mls @ 4 mls/hr 04/14/18 23:45 04/19/18 00:21 Sodium Chloride IVPB 7 mg/hr TITR SYLVIA 7 mls/hr Administration Protocol 4 MG/HR Lorazepam 2 mg 04/15/18 03:00 04/19/18 14:39 Ativan Injection - IVPUSH 2 mg Q6H-IV SYLVIA Administration Scopolamine HBr 1 patch 04/14/18 10:15 04/17/18 09:19 Transderm-Scop - TD 1 patch Q72H SYLVIA Administration ASSESSMENT/PLAN: #s/p cardiopulmonary arrest, transitioned to comfort care measures only -On venturi mask -suctioning of secretions PRN. -Discontinued home medications -Discontinued tube feeds -Morphine drip at 7mg -Ativan 2mg q6h -For inpatient hospice. Dispo: Comfort Care Measures Only Visit type - Emergency Visit Emergency Visit: No - New Patient This patient is new to me today: No - Critical Care Critical Care patient: No - Discharge Referral Referred to [facility] Med [facility] No
== END 2018-04-19 19:50 | disposition expired | DRG 459 ==
LOC: JSAMEDAYSX 09:35 → JICU 21:54 → J4S 04-14 18:35
PROVIDERS: ADMIT Orthopaedic Surgery Orthopaedic Surgery of the Spine; ATTEND Internal Medicine
PROC: 0SG30AJ Fusion of Lumbosacral Joint with Interbody Fusion Device, Posterior Approach, Anterior Column, Open Approach (ICD-10-PCS; 2018-03-27)
PROC: 00QT0ZZ Repair Spinal Meninges, Open Approach (ICD-10-PCS; 2018-03-27)
PROC: 5A1955Z Respiratory Ventilation, Greater than 96 Consecutive Hours (ICD-10-PCS; 2018-03-27)
PROC: 0RG60AJ Fusion of Thoracic Vertebral Joint with Interbody Fusion Device, Posterior Approach, Anterior Column, Open Approach (ICD-10-PCS; principal; 2018-03-27 11:30)
PROC: 5A12012 Performance of Cardiac Output, Single, Manual (ICD-10-PCS; 2018-03-28)
PROC: 05HM33Z Insertion of Infusion Device into Right Internal Jugular Vein, Percutaneous Approach (ICD-10-PCS; 2018-03-28)
PROC: 0D9670Z Drainage of Stomach with Drainage Device, Via Natural or Artificial Opening (ICD-10-PCS; 2018-03-28)
PROC: 4A10X4G Monitoring of Central Nervous Electrical Activity, Intraoperative, External Approach (ICD-10-PCS; 2018-03-31)
PROC: 4A00X4Z Measurement of Central Nervous Electrical Activity, External Approach (ICD-10-PCS; 2018-03-31)
DX: M48.05 Spinal stenosis, thoracolumbar region (principal); J96.01 Acute respiratory failure with hypoxia; G93.41 Metabolic encephalopathy; I26.99 Other pulmonary embolism without acute cor pulmonale; A41.9 Sepsis, unspecified organism; G97.81 Other intraoperative complications of nervous system; G82.20 Paraplegia, unspecified; G97.41 Accidental puncture or laceration of dura during a procedure; I25.110 Atherosclerotic heart disease of native coronary artery with unstable angina pectoris; G93.1 Anoxic brain damage, not elsewhere classified; I24.8 Other forms of acute ischemic heart disease; N17.9 Acute kidney failure, unspecified; I97.711 Intraoperative cardiac arrest during other surgery; I47.2 Ventricular tachycardia; I13.0 Hypertensive heart and chronic kidney disease with heart failure and stage 1 through stage 4 chronic kidney disease, or unspecified chronic kidney disease; I50.30 Unspecified diastolic (congestive) heart failure; M84.48XA Pathological fracture, other site, initial encounter for fracture; M51.25 Other intervertebral disc displacement, thoracolumbar region; M48.04 Spinal stenosis, thoracic region; R53.1 Weakness; Y83.9 Surgical procedure, unspecified as the cause of abnormal reaction of the patient, or of later complication, without mention of misadventure at the time of the procedure; I25.10 Atherosclerotic heart disease of native coronary artery without angina pectoris; E78.5 Hyperlipidemia, unspecified; N40.0 Benign prostatic hyperplasia without lower urinary tract symptoms; M54.9 Dorsalgia, unspecified; R57.0 Cardiogenic shock; D64.9 Anemia, unspecified; E11.22 Type 2 diabetes mellitus with diabetic chronic kidney disease; N18.9 Chronic kidney disease, unspecified; R50.9 Fever, unspecified; R68.0 Hypothermia, not associated with low environmental temperature; D72.829 Elevated white blood cell count, unspecified; Z98.890 Other specified postprocedural states; Z95.1 Presence of aortocoronary bypass graft; Z79.4 Long term (current) use of insulin; Z53.8 Procedure and treatment not carried out for other reasons; Z66 Do not resuscitate
CPT/HCPCS: 36415; 36600; 70450-TC; 71045-TC-FY; 80048; 80053; 80185; 81003; 81015; 82550; 82553; 82570; 82803; 82962; 83605; 83735; 84100; 84300; 84484; 85025; 85027; 85610; 85730; 86850; 86900; 86901; 87040; 87070; 87086; 87205; 93005; 93010; 93306-TC; 94002; 95816; G0480; J0131; J1644; J7030